=== PATIENT | female | born 2000 | race Hispanic/Latino ===

== ENCOUNTER 2021-08-19 18:38 | Emergency (ER) | payer OTHER, SELFPAY ==
[2021-08-19] MEDS ORDERED: NA CHLORIDE 0.9% 1,000 ML ONE (20:01)
[2021-08-19 20:25] LABS: Basophils % 0.7 % (0-1.3); Hematocrit 41.8 % (36.0-45.0); Lymphocytes % 22.6 % (15.3-44.8); MPV 8.7 fL (7.6-11.3); RBC Red Blood Cell Count 5.41 M/uL (3.86-4.86)
[2021-08-19 20:34] LABS: BUN Blood Urea Nitrogen 12 mg/dL (7-18); Bicarbonate 26 mmol/L (21-32); Glucose Level 90 mg/dL (74-106); Potassium 3.7 mmol/L (3.5-5.1); Sodium Level 141 mmol/L (136-145)
[2021-08-19 20:57] LABS: SARS-COV-2 RT PCR NEGATIVE (NEGATIVE)
[2021-08-19 21:13] LABS: Urine Blood 3+ (Negative); Urine Glucose Negative (Negative); Urine Protein Trace (Negative)
--- NOTE | 2021-08-19 21:35 | ER ---
Nurse's Notes [facility] Name: Roland Blake Age: 20 yrs Sex: Female : 2000 Arrival Date: 08/19/2021 Time: 18:41 Bed 23 Private MD: Diagnosis: Other malaise and fatigue;Dehydration Presentation: 08/19 19:16 Chief complaint: Patient states: Pt states has been feeling dizzy and tired since vg1 Sunday08/17/21; states headache as well. Denies NVD. Coronavirus screen: Vaccine status: Patient reports receiving the 2nd dose of the covid vaccine. Client denies travel out of the [place] in the last 14 days. Ebola Screen: Patient negative for fever greater than or equal to 101.5 degrees Fahrenheit, and additional compatible Ebola Virus Disease symptoms. Initial Sepsis Screen: Does the patient meet any 2 criteria? No. Patient's initial sepsis screen is negative. Does the patient have a suspected source of infection? No. Patient's initial sepsis screen is negative. Risk Assessment: Do you want to hurt yourself or someone else? Patient reports no desire to harm self or others. Onset of symptoms was August 17, 2021. 19:16 Method Of Arrival: Ambulatory 1 19:16 Acuity: REBECCA 3 vg1 Triage Assessment: 19:18 General: Appears in no apparent distress. uncomfortable, Behavior is calm, cooperative. vg1 Pain: Denies pain. 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 - Social history:: Smoking status: Reported history of juuling and/or vaping. - Family history:: not pertinent. - Hospitalizations: : No recent hospitalization is reported. Screenin:25 Abuse screen: Denies threats or abuse. Nutritional screening: No deficits noted. fu Tuberculosis screening: No symptoms or risk factors identified. Fall Risk None identified. Assessment: 19:35 General: Appears in no apparent distress. Behavior is calm, cooperative, appropriate fu for age, Denies fever, fatigue, chills. Pain: Complains of pain in head Pain does not radiate. Pain currently is 4 out of 10 on a pain scale. Quality of pain is described as aching, Pain began 2-3 days ago. Neuro: Level of Consciousness is awake, alert, obeys commands, Oriented to person, place, time, situation, Moves all extremities. Gait is steady, Speech is normal, Facial symmetry appears normal. Cardiovascular: No deficits noted. Respiratory: Respiratory effort is even, unlabored, Respiratory pattern is regular. GI: Patient currently denies abdominal pain, nausea, vomiting. : No signs and/or symptoms were reported regarding the genitourinary system. Derm: Skin is intact. Musculoskeletal: No signs and/or symptoms reported regarding the musculoskeletal system. 20:48 Reassessment: Patient appears in no apparent distress at this time. Patient and/or fu family updated on plan of care and expected duration. Pain level reassessed. Patient is alert, oriented x 3, equal unlabored respirations, skin warm/dry/pink. 21:32 Reassessment: Patient appears in no apparent distress at this time. Patient and/or fu family updated on plan of care and expected duration. Pain level reassessed. Patient is alert, oriented x 3, equal unlabored respirations, skin warm/dry/pink. Dr. Morrison in the room. Vital Signs: 19:16 BP 130 / 88; Pulse 93; Resp 16; Temp 98.1; Pulse Ox 100% ; Weight 49.9 kg; Height 5 ft. vg1 5 in. (165.10 cm); Pain 0/10; 20:15 BP 119 / 71; Pulse 87; Resp 18; Pulse Ox 100% on R/A; Pain 4/10; fu 20:47 BP 115 / 71; Pulse 77; Resp 13; Pulse Ox 100% on R/A; fu 21:35 BP 125 / 75; Pulse 72; Resp 15; Temp 98.7(O); Pulse Ox 100% on R/A; fu 19:16 Body Mass Index 18.30 (49.90 kg, 165.10 cm) vg1 ED Course: 18:41 Patient arrived in ED. ds1 19:03 Jordi Morrison MD is Attending Physician. rn 19:18 Triage completed. vg1 19:18 Arm band placed on. vg1 19:26 Pulse ox on. NIBP on. fu 19:35 Heri Stack, RN is Primary Nurse. fu 19:50 Inserted saline lock: 20 gauge in right antecubital area, using aseptic technique. fu Blood collected. 19:57 CBC with Diff Sent. fu 20:00 EKG done, COVID swab sent to lab. Strep swab sent to lab. swab for Flu sent. fu 20:45 Patient has correct armband on for positive identification. Bed in low position. Call fu light in reach. Side rails up X 1. 20:45 No provider procedures requiring assistance completed. fu 21:34 Urine --Ancillary (enter results) Sent. fu 21:42 IV discontinued, bleeding controlled, Pressure dressing applied. fu Administered Medications: 20:13 Drug: NS 0.9% 1000 ml Route: IV; Rate: 1000 ml; Site: right antecubital; fu 21:12 Follow up: Response: No adverse reaction; IV Status: Completed infusion; IV Intake: fu 1000ml Intake: 21:12 IV: 1000ml; Total: 1000ml. fu Outcome: 21:34 Discharge ordered by . rn 21:42 Discharged to home ambulatory, with significant other. fu 21:42 Condition: good 21:42 Discharge instructions given to patient, Instructed on discharge instructions, follow up and referral plans. Demonstrated understanding of instructions, follow-up care, Prescriptions given X 0 21:43 Patient left the ED. fu Signatures: Sasha Gore ds1 Jordi Morrison MD MD rn Umadhay, Felix RN Helen Vazquez RN RN [facility]
--- NOTE | 2021-08-19 21:35 | EDPHYS ---
Physician Documentation [facility] Name: Roland Blake Age: 20 yrs Sex: Female : 2000 Arrival Date: 08/19/2021 Time: 18:41 Bed 23 Private MD: ED Physician Jordi Morrison HPI: 08/19 20:15 This 20 yrs old Female presents to ER via Ambulatory with complaints of Tired, rn Dizziness. 20:15 This 20 yrs old Female presents to ER via Ambulatory with complaints of Tired, rn headache, dizziness. 20:15 Days ofPatient reports of generalized fatigue and malaise, mild headache. Denies any rn fever/cough/vomiting/diarrhea. States drinking plenty of water. States this began when her menstrual period began but denies any heavy bleeding. No blood in stool. Does report was recently exposed to parents who are Covid positive. Patient is Covid vaccinated.. Onset: The symptoms/episode began/occurred 2 day(s) ago. Severity of symptoms: At their worst the symptoms were mild in the emergency department the symptoms are unchanged. The patient has not experienced similar symptoms in the past. The patient has not recently seen a physician. 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 - Social history:: Smoking status: Reported history of juuling and/or vaping. - Family history:: not pertinent. - Hospitalizations: : No recent hospitalization is reported. ROS: 20:15 Constitutional: Negative for fever, chills, and weight loss, Eyes: Negative for injury, rn pain, redness, and discharge, Neck: Negative for injury, pain, and swelling, Cardiovascular: Negative for chest pain, palpitations, and edema, Respiratory: Negative for shortness of breath, cough, wheezing, and pleuritic chest pain, Abdomen/GI: Negative for abdominal pain, nausea, vomiting, diarrhea, and constipation, Back: Negative for injury and pain, MS/Extremity: Negative for injury and deformity, Skin: Negative for injury, rash, and discoloration, Neuro: Negative for numbness, tingling, and seizure. Exam: 20:15 Constitutional: This is a well developed, well nourished patient who is awake, alert, rn and in no acute distress. Head/Face: Normocephalic, atraumatic. Eyes: Periorbital areas with no swelling, redness, or edema. ENT: Moist mucous membranes Neck: Trachea midline, no thyromegaly or masses palpated, and no cervical lymphadenopathy. Supple, full range of motion without nuchal rigidity, or vertebral point tenderness. No Meningismus. Cardiovascular: Regular rate and rhythm. No pulse deficits. Respiratory: No increased work of breathing, no retractions or nasal flaring. Abdomen/GI: Soft, non-tender Skin: Warm, dry with normal turgor. Normal color with no rashes, no lesions, and no evidence of cellulitis. MS/ Extremity: Pulses equal, no cyanosis. Neurovascular intact. Full, normal range of motion. Equal circumference. Neuro: Awake and alert, GCS 15, oriented to person, place, time, and situation. Cranial nerves II-XII grossly intact. Motor strength 5/5 in all extremities. Sensory grossly intact. Cerebellar exam normal. Normal gait. 20:58 ECG was reviewed by the Attending Physician. rn Vital Signs: 19:16 BP 130 / 88; Pulse 93; Resp 16; Temp 98.1; Pulse Ox 100% ; Weight 49.9 kg; Height 5 ft. vg1 5 in. (165.10 cm); Pain 0/10; 20:15 BP 119 / 71; Pulse 87; Resp 18; Pulse Ox 100% on R/A; Pain 4/10; fu 20:47 BP 115 / 71; Pulse 77; Resp 13; Pulse Ox 100% on R/A; fu 21:35 BP 125 / 75; Pulse 72; Resp 15; Temp 98.7(O); Pulse Ox 100% on R/A; fu 19:16 Body Mass Index 18.30 (49.90 kg, 165.10 cm) vg1 MDM: 19:21 Patient medically screened. rn 21:32 Differential Diagnosis flu, Covid, strep, mono, viral syndrome. Dehydration, anemia, rn malaise and fatigue. Data reviewed: vital signs, nurses notes, lab test result(s), EKG, and as a result, I will discharge patient. Data interpreted: laboratory monitor: rate is 77 beats/min, rhythm is normal sinus rhythm, regular, with no ectopy, Interpretation: normal rate, normal rhythm, Pulse oximetry: on room air is 100 %. Interpretation: normal. Counseling: I had a detailed discussion with the patient and/or guardian regarding: the historical points, exam findings, and any diagnostic results supporting the discharge/admit diagnosis, lab results, the need for outpatient follow up, to return to the emergency department if symptoms worsen or persist or if there are any questions or concerns that arise at home. Response to treatment: the patient's symptoms have mildly improved after treatment, and as a result, I will discharge patient. Special discussion: I discussed with the patient/guardian in detail that at this point there is no indication for admission to the hospital. It is understood, however, that if the symptoms persist or worsen the patient needs to return immediately for re-evaluation. Based on the history and exam findings, there is no indication for further emergent testing or inpatient evaluation. I discussed with the patient/guardian the need to see the primary care provider for further evaluation of the symptoms. ED course: No acute findings found here. Covid negative. Urine shows some ketones but negative for or infection. Glucose within normal range. Stable vitals. Will DC home with return precautions and PCP follow-up. 08/19 19:32 Order name: CBC with Diff rn 08/19 19:32 Order name: Basic Metabolic Panel; Complete Time: 20:57 rn 08/19 19:32 Order name: Urine Microscopic Only rn 08/19 19:32 Order name: Jessamine Screen Profile; Complete Time: 20:57 rn 08/19 19:32 Order name: Strep; Complete Time: 20:57 rn 08/19 19:32 Order name: CBC with Automated Diff; Complete Time: 20:57 EDRI 08/19 20:11 Order name: COVID-19/FLU A+B; Complete Time: 21:28 EDRI 08/19 20:39 Order name: Throat Culture EDRI 08/19 21:13 Order name: Urine Dipstick-Ancillary; Complete Time: 21:28 EDRI 08/19 21:15 Order name: Urine --Ancillary (enter results) tt3 08/19 21:16 Order name: Urine --Ancillary EDMS 08/19 19:32 Order name: IV Start; Complete Time: 19:57 rn 08/19 19:32 Order name: EKG; Complete Time: 19:32 rn 08/19 19:32 Order name: EKG - Nurse/Tech; Complete Time: 20:14 rn 08/19 19:32 Order name: Urine Dipstick-Ancillary (obtain specimen); Complete Time: 21:13 rn 08/19 19:32 Order name: Urine Test (obtain specimen); Complete Time: 21:13 rn EC:58 Rate is 84 beats/min. Rhythm is regular. QRS [place] is Normal. [place] interval is normal. QRS rn interval is normal. QT interval is normal. No Q waves. T waves are Normal. No ST changes noted. Clinical impression: NSR w/ Non-specific ST/T Changes and Incomplete RBBB. Interpreted by me. Reviewed by me. Administered Medications: 20:13 Drug: NS 0.9% 1000 ml Route: IV; Rate: 1000 ml; Site: right antecubital; fu 21:12 Follow up: Response: No adverse reaction; IV Status: Completed infusion; IV Intake: fu 1000ml Disposition Summary: 08/19/21 21:34 Discharge Ordered Location: Home rn Problem: new rn Symptoms: have improved rn Condition: Stable rn Diagnosis - Other malaise and fatigue rn - Dehydration rn Followup: rn - With: Private Physician - When: As needed - Reason: Recheck today's complaints, Re-evaluation by your physician Discharge Instructions: - Discharge Summary Sheet rn - Dehydration, Adult rn - Fatigue rn - Rehydration, Adult rn Forms: - Medication Reconciliation Form rn - Thank You Letter rn - 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 EDRI EDRI
[2021-08-19 21:46] LABS: Urine Bacteria 20-50 /HPF (<20)
[2021-08-19 22:03] VITALS: O2SAT 100
[2021-08-19 22:08] VITALS: BP 125/75; TEMP 98.7
--- NOTE | 2021-08-22 18:32 | EKG ---
Test Date: 2021-08-19 Test Time: 20:09:30 Sleeve Bottom Feller: DAVID MEASUREMENT RESULTS: Intervals: Rate: 84 CO: 156 QRSD: 92 QT: 410 QTc: 484 [place]: P: 65 CO: 156 QRS: 44 T: 24 INTERPRETIVE STATEMENTS: Normal sinus rhythm with sinus arrhythmia Incomplete right bundle branch block Borderline ECG No previous ECG available for comparison Electronically Signed On 08-22-21 18:24:25 VAULT MANAGER by Crispin Witt
--- OUTSIDE RECORDS SUMMARY | 2021-08-27 13:31 | XMS REPORT | Continuity of Care Document ---
:2000 Author Organization [facility] t Address [address] [place] [address] Care Team Providers Name Role Phone System, Not In Primary Care Physician Unavailable Nurse, Pob Immunization Attending Clinician Unavailable Anurag Roy DO Attending Clinician Problems This patient has no known problems. Allergies, Adverse Reactions, Alerts This patient has no known allergies or adverse reactions. Social History Social Habit Start Date Stop Date Quantity Comments Source Sex Assigned At [birth year] [facility] 00:00:00 00:00:00 [facility] Smoking Status Start Date Stop Date Source Unknown if ever smoked [facility] Medications This patient has no known medications. Immunizations Ordered Filled Immunization Date Status Comments Sourc e Immunization Name Name SARS-COV-2 COVID-19 2021-06-09 Completed Unive rsity of PFIZER VACCINE 00:00:00 [facility] SARS-COV-2 COVID-19 2021-05-19 Completed Unive rsity of PFIZER VACCINE 00:00:00 [facility] Procedures Procedure Date / Time Performed Performing Clinician Bertin e SARS-COV-2 COVID-19 2021-06-09 21:02:38 Doctor Unassigned, No [facility] [place] VACCINE,0.3ML,IM Name [facility] Branch (PFIZER) Encounters Start End Encounter Admission Attending Care Care Encounter Source Date/Time Date/Time Type Type Clinicians Facility Department ID 2021-06-09 2021-06-09 Imm/Inj Nurse, Adc Pob Immunization [facility] [id number] [facility] 15:49:23 15:49:40 Visit Lei Roy [id number] itbenja [place] [id number] Chencho Walters [phone] [address] Results This patient has no known results.
== END 2021-08-19 21:43 | disposition home or self-care (01) ==
LOC: ER 18:38
DX: E86.0 Dehydration (principal); R53.83 Other fatigue; Z20.822 Contact with and (suspected) exposure to COVID-19
CPT/HCPCS: 0240U; 36415; 80048; 81003; 81015; 81025; 85025; 86308; 87070; 87081; 87086; 87088; 93005; 96360; 99284; J7030

== ENCOUNTER 2021-12-24 18:06 | Emergency (ER) | payer SELFPAY ==
--- OUTSIDE RECORDS SUMMARY | 2021-12-24 18:08 | XMS REPORT | Continuity of Care Document ---
:[address] [facility] t Address [address] [place] [address] Care Team Providers Name Role Phone System, Not In Primary Care Physician Unavailable Nurse, Pob Immunization Attending Clinician Unavailable Anurag Roy DO Attending Clinician Problems This patient has no known problems. Allergies, Adverse Reactions, Alerts This patient has no known allergies or adverse reactions. Social History Social Habit Start Date Stop Date Quantity Comments Source Sex Assigned At [address] [facility] 00:00:00 00:00:00 [facility] Branch Smoking Status Start Date Stop Date Source Unknown if ever smoked [facility] Medications This patient has no known medications. Immunizations Ordered Filled Immunization Date Status Comments Sourc e Immunization Name Name SARS-COV-2 COVID-19 2021-06-09 Completed Unive rsity of PFIZER VACCINE 00:00:00 [facility] SARS-COV-2 COVID-19 2021-05-19 Completed Unive rsity of PFIZER VACCINE 00:00:00 [facility] Procedures Procedure Date / Time Performed Performing Clinician Sourc e SARS-COV-2 COVID-19 2021-06-09 21:02:38 Doctor Unassigned, No [facility] [place] VACCINE,0.3ML,IM Name [facility] (PFIZER) Encounters Start End Encounter Admission Attending Care Care Encounter Source Date/Time Date/Time Type Type Clinicians Facility Department ID 2021-06-09 2021-06-09 Imm/Inj Nurse, Adc Pob Immunization [facility] [id number] [facility] 15:49:23 15:49:40 Visit Lei Roy [id number] itbenja [place] [id number] Chencho Coyio [phone] [address] Results This patient has no known results.
[2021-12-24 20:06] LABS: Absolute Lymphocytes (CBC) 1.9 K/uL (0.7-4.9); Hematocrit 38.6 % (36.0-45.0); Lymphocytes % 18.9 % (15.3-44.8); MPV 8.4 fL (7.6-11.3); RBC Red Blood Cell Count 5.11 M/uL (3.86-4.86)
--- NOTE | 2021-12-24 20:06 | RAD REPORT ---
EXAM DESCRIPTION: RAD - Chest Single View - 12/24/2021 7:52 pm CLINICAL HISTORY: CHEST PAIN Chest pain. COMPARISON: CHEST PA AND LAT 2 VIEW dated 11/09/2011 FINDINGS: Portable technique limits examination quality. The lungs are grossly clear. The heart is normal in size. No displaced fractures. IMPRESSION: No acute intrathoracic process suspected.
[2021-12-24] MEDS ORDERED: NA CHLORIDE 0.9% 1,000 ML ONE (20:19)
[2021-12-24] MEDS ORDERED: LORazepam 2 MG/ML VIAL ONE (20:19)
[2021-12-24 20:28] LABS: ALT/SGPT 22 U/L (12-78); AST/SGOT 20 U/L (15-37); Albumin 4.7 g/dL (3.4-5.0); Alkaline Phosphatase 67 U/L (45-117); BUN Blood Urea Nitrogen 11 mg/dL (7-18); Bicarbonate 25 mmol/L (21-32); Bilirubin Total 0.3 mg/dL (0.2-1.0); Glucose Level 96 mg/dL (74-106); Potassium 3.9 mmol/L (3.5-5.1); Sodium Level 137 mmol/L (136-145)
[2021-12-24 20:33] LABS: Bilirubin Direct < 0.1 mg/dL (0-0.2); Troponin High Sensitivity < 3.00 pg/mL (<58.9)
[2021-12-24 20:39] LABS: Urine Blood Negative (Negative); Urine Glucose Negative (Negative); Urine Protein Negative (Negative); Urine pH 6.5 (5.0-7.0)
--- NOTE | 2021-12-24 21:34 | EDPHYS ---
Physician Documentation [facility] Name: Roland Blake Age: 21 yrs Sex: Female : 2000 Arrival Date: 12/24/2021 Time: 18:08 Bed 10 Private MD: ED Physician Lenny Dotson HPI: 12/24 19:12 This 21 yrs old Female presents to ER via Ambulatory with complaints of jmm Dizziness, Anxiety. 19:12 The patient presents with feeling faint. Onset: The symptoms/episode began/occurred jmm acutely, today. Modifying factors: The symptoms are alleviated by nothing, the symptoms are aggravated by standing up, changing position. Associated signs and symptoms: Pertinent negatives: chest pain, palpitations. The patient has experienced similar episodes in the past, a few times. The patient has not recently seen a physician. 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 - Social history:: Smoking status: Patient/guardian denies using tobacco, Stopped _ months ago 2. ROS: 19:12 Constitutional: Negative for fever, chills, and weight loss, Eyes: Negative for injury, jmm pain, redness, and discharge, ENT: Negative for injury, pain, and discharge, Neck: Negative for injury, pain, and swelling. 19:12 Cardiovascular: Positive for chest pain, palpitations. 19:12 Neuro: Positive for syncope. 19:12 All other systems are negative. Exam: 19:12 Constitutional: This is a well developed, well nourished patient who is awake, alert, jmm and in no acute distress. Head/Face: atraumatic. Eyes: EOMI, no conjunctival erythema appreciated ENT: Moist Mucus Membranes Neck: Trachea midline, Supple Chest/axilla: Normal chest wall appearance and motion. Cardiovascular: Regular rate and rhythm. No edema appreciated Respiratory: Normal respirations, no respiratory distress appreciated Abdomen/GI: Non distended, soft Back: Normal ROM Skin: General appearance color normal MS/ Extremity: Moves all extremities, no obvious deformities appreciated, no edema noted to the lower extremities Neuro: Awake and alert Psych: Behavior is normal, Mood is normal, Patient is cooperative and pleasant Vital Signs: 18:24 BP 129 / 89; Pulse 87; Resp 18; Temp 98.1; Pulse Ox 100% ; Weight 49.9 kg; Height 5 ft. ww 6 in. (167.64 cm); Pain 3/10; 20:27 BP 116 / 69; Pulse 82; Resp 16; Pulse Ox 99% on R/A; lg3 18:24 Body Mass Index 17.75 (49.90 kg, 167.64 cm) ww MDM: 19:12 Patient medically screened. mat 21:33 Data reviewed: vital signs, nurses notes. Counseling: I had a detailed discussion with veronica the patient and/or guardian regarding: the historical points, exam findings, and any diagnostic results supporting the discharge/admit diagnosis, lab results, radiology results, the need for outpatient follow up, to return to the emergency department if symptoms worsen or persist or if there are any questions or concerns that arise at home. ED course: Patient states feeling better in the ED. Labs, imaging studies unremarkable. Patient family advised to follow-up with cardiology and neurology for further evaluation. Patient otherwise given strict return precautions. Patient and mother understood agrees plan of care peer. 12/24 19:21 Order name: Basic Metabolic Panel; Complete Time: 20:34 [facility] 12/24 19:21 Order name: CBC with Diff; Complete Time: 20:11 [facility] 12/24 19:21 Order name: LFT's; Complete Time: 20:34 [facility] 12/24 19:21 Order name: Troponin HS; Complete Time: 20:34 [facility] 12/24 19:21 Order name: D-Dimer; Complete Time: 20:12 [facility] 12/24 20:39 Order name: Urine Dipstick-Ancillary; Complete Time: 20:40 [facility] 12/24 19:21 Order name: XRAY Chest (1 view); Complete Time: 20:11 [facility] 12/24 19:21 Order name: EKG; Complete Time: 19:22 [facility] 12/24 19:21 Order name: Cardiac monitoring; Complete Time: 20:13 [facility] 12/24 19:21 Order name: EKG - Nurse/Tech; Complete Time: 19:54 [facility] 12/24 20:40 Order name: Urine --Ancillary (enter results) mw2 12/24 20:42 Order name: Urine --Ancillary; Complete Time: 20:43 [facility] 12/24 19:21 Order name: IV Saline Lock; Complete Time: 19:54 [facility] 12/24 19:21 Order name: Labs collected and sent; Complete Time: 19:54 [facility] 12/24 19:21 Order name: O2 Per Protocol; Complete Time: 19:54 [facility] 12/24 19:21 Order name: O2 Sat Monitoring; Complete Time: 19:54 [facility] 12/24 20:06 Order name: Urine Dipstick-Ancillary (obtain specimen); Complete Time: 20:39 [facility] 12/24 20:06 Order name: Urine Test (obtain specimen); Complete Time: 20:39 [facility] Administered Medications: 20:20 Drug: NS 0.9% 1000 ml Route: IV; Rate: 1 bolus; Site: right antecubital; lg3 21:42 Follow up: Response: No adverse reaction; IV Status: Completed infusion; IV Intake: lg3 1000ml 20:21 Drug: Ativan (LORazepam) 0.5 mg Route: IVP; Site: right antecubital; lg3 20:21 Follow up: Response: No adverse reaction lg3 Disposition: 12/25 18:29 Co-signature as Attending Physician, Lenny Dotson MD I agree with the assessment and [facility] plan of care. Disposition Summary: 12/24/21 21:33 Discharge Ordered Location: Home [facility] Condition: Stable jmm Diagnosis - Syncope Near jmm Followup: [facility] - With: Private Physician - When: 2 - 3 days - Reason: Recheck today's complaints, Continuance of care, Re-evaluation by your physician Discharge Instructions: - Discharge Summary Sheet jmm - Panic Attack jmm - Near-Syncope [facility] Forms: - Medication Reconciliation Form [facility] - Thank You Letter [facility] - Antibiotic Education jmm - Prescription Opioid Use [facility] Signatures: Dispatcher [employer] Lenny Parra MD MD cha Mickail, Joel, PA PA jmm Gibson, Lacie, RN RN lg3 Regina Nguyen RN RN ww
--- NOTE | 2021-12-24 21:34 | ER ---
Nurse's Notes [facility] Name: Roland Blake Age: 21 yrs Sex: Female : 2000 Arrival Date: 12/24/2021 Time: 18:08 Bed 10 Private MD: Diagnosis: Syncope Near Presentation: 12/24 18:24 Chief complaint: Patient states: Has been having headaches for a few days and having a ww lot of anxiety with shortness of breath and dizziness. Today at work she felt like she was going to pass out. Coronavirus screen: Vaccine status: Patient reports receiving the 2nd dose of the covid vaccine. Client denies travel out of the [place] in the last 14 days. Ebola Screen: Patient denies travel to an Ebola-affected area in the 21 days before illness onset. Initial Sepsis Screen: Does the patient meet any 2 criteria? No. Patient's initial sepsis screen is negative. Does the patient have a suspected source of infection? No. Patient's initial sepsis screen is negative. Risk Assessment: Do you want to hurt yourself or someone else? Patient reports no desire to harm self or others. Onset of symptoms is unknown. 18:24 Method Of Arrival: Ambulatory ww 18:24 Acuity: REBECCA 4 ww Triage Assessment: 18:26 General: Appears in no apparent distress. Behavior is cooperative, anxious. Pain: ww Complains of pain in face and scalp. EENT: Denies blurred vision. Neuro: Level of Consciousness is awake, alert, obeys commands, Oriented to person, place, time, situation, Moves all extremities. Gait is steady, Speech is normal. Cardiovascular: Capillary refill Patient's skin is warm and dry. Respiratory: Airway is patent Respiratory effort is even, unlabored, Respiratory pattern is regular, symmetrical. GI: No signs and/or symptoms were reported involving the gastrointestinal system. : No signs and/or symptoms were reported regarding the genitourinary system. Derm: Skin is intact, is healthy with good turgor, Skin is pink, warm \T\ dry. 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 - Social history:: Smoking status: Patient/guardian denies using tobacco, Stopped _ months ago 2. Screenin:28 Abuse screen: Denies threats or abuse. Denies injuries from another. Nutritional ww screening: No deficits noted. Tuberculosis screening: No symptoms or risk factors identified. Fall Risk None identified. Assessment: 19:58 General: Appears in no apparent distress. comfortable, Behavior is calm, cooperative. lg3 Pain: Denies pain. Neuro: No deficits noted. Level of Consciousness is awake, alert, obeys commands, Oriented to person, place, time, situation. Cardiovascular: No deficits noted. Reports lightheadedness, dizziness Capillary refill < 3 seconds JVD is absent Patient's skin is warm and dry. Respiratory: No deficits noted. Airway is patent Trachea midline Respiratory effort is even, unlabored, Respiratory pattern is regular, symmetrical. GI: No deficits noted. No signs and/or symptoms were reported involving the gastrointestinal system. Abdomen is flat, non-distended. : No deficits noted. No signs and/or symptoms were reported regarding the genitourinary system. EENT: No deficits noted. No signs and/or symptoms were reported regarding the EENT system. Derm: No deficits noted. No signs and/or symptoms reported regarding the dermatologic system. Skin is intact, is healthy with good turgor, Skin is dry. Musculoskeletal: No deficits noted. No signs and/or symptoms reported regarding the musculoskeletal system. Circulation, motion, and sensation intact. Range of motion: intact in all extremities. Vital Signs: 18:24 BP 129 / 89; Pulse 87; Resp 18; Temp 98.1; Pulse Ox 100% ; Weight 49.9 kg; Height 5 ft. ww 6 in. (167.64 cm); Pain 3/10; 20:27 BP 116 / 69; Pulse 82; Resp 16; Pulse Ox 99% on R/A; lg3 18:24 Body Mass Index 17.75 (49.90 kg, 167.64 cm) ww ED Course: 18:08 Patient arrived in ED. ds1 18:26 Triage completed. ww 18:26 Arm band placed on right wrist. ww 18:40 Aj King PA is PHCP. veronica 18:40 Lenny Dotson MD is Attending Physician. veronica 19:10 Iwona Valadez, RN is Primary Nurse. st1 19:52 XRAY Chest (1 view) In Process Unspecified. EDMS 19:54 Basic Metabolic Panel Sent. lg3 19:54 CBC with Diff Sent. lg3 19:54 LFT's Sent. lg3 19:54 Troponin HS Sent. lg3 19:58 Patient has correct armband on for positive identification. Placed in gown. Call light lg3 in reach. 19:58 Inserted saline lock: 22 gauge in right antecubital area, using aseptic technique. lg3 Blood collected. 20:43 Urine --Ancillary (enter results) Sent. ph 21:41 No provider procedures requiring assistance completed. IV discontinued, intact, lg3 bleeding controlled, No redness/swelling at site. Pressure dressing applied. Administered Medications: 20:20 Drug: NS 0.9% 1000 ml Route: IV; Rate: 1 bolus; Site: right antecubital; lg3 21:42 Follow up: Response: No adverse reaction; IV Status: Completed infusion; IV Intake: lg3 1000ml 20:21 Drug: Ativan (LORazepam) 0.5 mg Route: IVP; Site: right antecubital; lg3 20:21 Follow up: Response: No adverse reaction lg3 Intake: 21:42 IV: 1000ml; Total: 1000ml. lg3 Outcome: 21:33 Discharge ordered by . [facility] 21:41 Discharged to home ambulatory. lg3 21:41 Condition: stable 21:41 Discharge instructions given to patient, Instructed on discharge instructions. 21:42 Patient left the ED. lg3 Signatures: Dispatcher [employer] EDMS Aj King PA PA jmm Sanford, Demi ds1 Karime Delong, RN RN Arina Albarado, RN RN lg3 Regina Nguyen RN RN ww Iwona Valadez, RN RN st1 Corrections: (The following items were deleted from the chart) 21:25 20:27 BP 166 / 69; Pulse 82bpm; Resp 16bpm; Pulse Ox 99% RA; lg3 lg3
[2021-12-24 22:56] VITALS: TEMP 98; O2SAT 100
[2021-12-24 22:57] VITALS: BP 141/84
--- NOTE | 2021-12-25 10:09 | EKG ---
Test Date: 2021-12-24 Test Time: 19:54:33 Studio Producer: MEASUREMENT RESULTS: Intervals: Rate: 76 DC: 154 QRSD: 94 QT: 406 QTc: 456 Valentine: P: 66 DC: 154 QRS: 62 T: 51 INTERPRETIVE STATEMENTS: Normal sinus rhythm Possible Left atrial enlargement Incomplete right bundle branch block Borderline ECG Compared to ECG 08/19/2021 20:09:30 Sinus arrhythmia no longer present Electronically Signed On 12-25-21 10:09:04 CDT by Crispin Witt
== END 2021-12-24 21:42 | disposition home or self-care (01) ==
LOC: ER 18:06
DX: R55 Syncope and collapse (principal); R07.9 Chest pain, unspecified
CPT/HCPCS: 36415; 71045; 80048; 80076; 81003; 81025; 84484; 85025; 85379; 93005; 96361; 96374; 99284; J7030

== ENCOUNTER 2022-01-07 19:19 | Emergency (ER) | payer SELFPAY ==
--- OUTSIDE RECORDS SUMMARY | 2022-01-07 19:22 | XMS REPORT | Continuity of Care Document ---
:2000 Author Organization [facility] t Address [address] [place] [address] Care Team Providers Name Role Phone System, Not In Primary Care Physician Unavailable Nurse, Pob Immunization Attending Clinician Unavailable Anurag Roy DO Attending Clinician Problems This patient has no known problems. Allergies, Adverse Reactions, Alerts This patient has no known allergies or adverse reactions. Social History Social Habit Start Date Stop Date Quantity Comments Source Sex Assigned At [birth year] [facility] 00:00:00 00:00:00 [facility] Branch Smoking Status Start Date Stop Date Source Unknown if ever smoked [facility] Medications This patient has no known medications. Immunizations Ordered Filled Immunization Date Status Comments Sourc e Immunization Name Name SARS-COV-2 COVID-19 2021-06-09 Completed Unive rsity of PFIZER VACCINE 00:00:00 [facility] SARS-COV-2 COVID-19 2021-05-19 Completed Unive rsity of PFIZER VACCINE 00:00:00 [facility] Procedures Procedure Date / Time Performed Performing Clinician Sourc e SARS-COV-2 COVID-19 2021-06-09 21:02:38 Doctor Unassigned, No [facility] [place] VACCINE,0.3ML,IM Name [facility] (PFIZER) Encounters Start End Encounter Admission Attending Care Care Encounter Source Date/Time Date/Time Type Type Clinicians Facility Department ID 2021-06-09 2021-06-09 Imm/Inj Nurse, Adc Pob Immunization [facility] [id number] [facility] 15:49:23 15:49:40 Visit Lei Roy [id number] itbenja [place] [id number] Chencho Coyio [id number] [facility] [address] Results This patient has no known results.
--- NOTE | 2022-01-07 19:47 | EDPHYS ---
Physician Documentation [facility] Name: Roland Blake Age: 21 yrs Sex: Female : 2000 Arrival Date: 01/07/2022 Time: 19:22 Bed 15 Private MD: ED Physician Lenny Dotson HPI: 01/07 19:43 This 21 yrs old Female presents to ER via Ambulatory with complaints of kb Breathing Difficulty, anxiety. 19:43 The patient presents to the emergency department with anxiety. Onset: The kb symptoms/episode began/occurred 1 month(s) ago. Associated signs and symptoms: Pertinent positives; anxiety, shortness of breath. Severity of symptoms: At their worst the symptoms were moderate in the emergency department the symptoms have improved. The patient has experienced similar episodes in the past. The patient has not recently seen a physician. Pt reports she has been having panic attacks every day for the last month. States her anxiety has been bad and then she started hyperventilating which makes her feel like she isn't getting air into her lungs, then gets dizzy. States she had to quit her job because the panic attacks would cause her to break down and cry at times. Pt has virtual appt with psych on Sunday. . 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 - Social history:: Smoking status: Patient denies any tobacco usage or history of. ROS: 19:41 Constitutional: Negative for fever, chills, and weight loss. kb 19:41 Respiratory: Positive for shortness of breath. 19:41 Psych: Positive for anxiety. 19:41 All other systems are negative. Exam: 19:42 Constitutional: This is a well developed, well nourished patient who is awake, alert, kb and in no acute distress. Head/Face: Normocephalic, atraumatic. ENT: Moist Mucous membranes Cardiovascular: Regular rate and rhythm with a normal S1 and S2. No gallops, murmurs, or rubs. No pulse deficits. Respiratory: Respirations even and unlabored. No increased work of breathing. Talking in full sentences Skin: Warm, dry with normal turgor. Normal color. MS/ Extremity: Pulses equal, no cyanosis. Neurovascular intact. Full, normal range of motion. Neuro: Awake and alert, GCS 15, oriented to person, place, time, and situation. Moves all extremities. Normal gait. Psych: Awake, alert, with orientation to person, place and time. Behavior, mood, and affect are within normal limits. Vital Signs: 19:24 BP 127 / 73; Pulse 88; Resp 17; Temp 97.8; Pulse Ox 100% on R/A; Weight 48.99 kg; ab2 Height 5 ft. 6 in. (167.64 cm); Pain 0/10; 19:48 BP 122 / 79; Pulse 91; Resp 16; Pulse Ox 100% on R/A; Pain 0/10; st1 19:24 Body Mass Index 17.43 (48.99 kg, 167.64 cm) ab2 MDM: 19:32 Patient medically screened. [facility] 19:41 Data reviewed: vital signs, nurses notes. Data interpreted: Pulse oximetry: on room air kb is 100 %. Interpretation: normal. Counseling: I had a detailed discussion with the patient and/or guardian regarding: the historical points, exam findings, and any diagnostic results supporting the discharge/admit diagnosis, the need for outpatient follow up, a family practitioner, a psychiatrist, to return to the emergency department if symptoms worsen or persist or if there are any questions or concerns that arise at home. Administered Medications: 19:45 Drug: hydrOXYzine 25 mg Route: PO; st1 19:52 Follow up: Response: No adverse reaction st1 19:59 Follow up: Response: No adverse reaction st1 Disposition Summary: 01/07/22 19:46 Discharge Ordered Location: Home kb Condition: Stable kb Diagnosis - Acute stress reaction kb Followup: kb - With: Emergency Department - When: As needed - Reason: Worsening of condition Followup: kb - With: Private Physician - When: 2 - 3 days - Reason: Recheck today's complaints, Continuance of care, Re-evaluation by your physician Discharge Instructions: - Discharge Summary Sheet kb - Panic Attack, [id number] kb Forms: - Medication Reconciliation Form kb - Thank You Letter kb - Antibiotic Education kb - Prescription Opioid Use kb Addendum: 01/11/2022 07:10 Co-signature as Attending Physician, Lenny Dotson MD I agree with the assessment and c sheppard plan of care. Signatures: Josephine Humphrey, ROBOTIC TECHNICIAN-C ROBOTIC TECHNICIAN-Ckb Lenny Dotson MD MD cha Bleininger, Alexis ab2 Iwona Valadez, RN RN st1
--- NOTE | 2022-01-07 19:47 | ER ---
Nurse's Notes [facility] Name: Roland Blake Age: 21 yrs Sex: Female : 2000 Arrival Date: 01/07/2022 Time: 19:22 Bed 15 Private MD: Diagnosis: Acute stress reaction Presentation: 01/07 19:24 Chief complaint: Parent and/or Guardian states: "We were here last week and she has ab2 panic attacks and it makes her unable to breath. This is an every day occurrence, she had to quit her job. She cant sleep, she's not eating. I don't know what else to do. I need something to help her breathing.". Coronavirus screen: Vaccine status: Patient reports receiving the 2nd dose of the covid vaccine. Client denies travel out of the [place] in the last 14 days. At this time, the client does not indicate any symptoms associated with coronavirus-19. Ebola Screen: Patient negative for fever greater than or equal to 101.5 degrees Fahrenheit, and additional compatible Ebola Virus Disease symptoms Patient denies exposure to infectious person. Patient denies travel to an Ebola-affected area in the 21 days before illness onset. No symptoms or risks identified at this time. Initial Sepsis Screen: Does the patient meet any 2 criteria? No. Patient's initial sepsis screen is negative. Does the patient have a suspected source of infection? No. Patient's initial sepsis screen is negative. Risk Assessment: Do you want to hurt yourself or someone else? Patient reports no desire to harm self or others. Onset of symptoms is unknown. 19:24 Method Of Arrival: Ambulatory ab2 19:24 Acuity: REBECCA 4 ab2 Triage Assessment: 19:29 General: Appears in no apparent distress. Behavior is anxious. Respiratory: Reports ab2 shortness of breath labored breathing Onset: The symptoms/episode began/occurred at an unknown time. the patient reports symptoms have resolved. 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 - Social history:: Smoking status: Patient denies any tobacco usage or history of. Screenin:41 Abuse screen: Denies threats or abuse. Nutritional screening: No deficits noted. st1 Tuberculosis screening: No symptoms or risk factors identified. Fall Risk None identified. No fall in past 12 months (0 pts). No secondary diagnosis (0 pts). No IV (0 pts). Ambulatory Aid- None/Bed Rest/Nurse Assist (0 pts). Gait- Normal/Bed Rest/Wheelchair (0 pts) Mental Status- Oriented to own ability (0 pts). Total Mac Fall Scale indicates No Risk (0-24 pts). Assessment: 19:28 General: Appears in no apparent distress. comfortable, Behavior is calm, cooperative, ab2 appropriate for age. Pain: Denies pain. Cardiovascular: No deficits noted. Respiratory: Airway is patent Respiratory effort is even, unlabored. 19:51 Cardiovascular: Rhythm is regular. Respiratory: Breath sounds are clear. st1 Vital Signs: 19:24 BP 127 / 73; Pulse 88; Resp 17; Temp 97.8; Pulse Ox 100% on R/A; Weight 48.99 kg; ab2 Height 5 ft. 6 in. (167.64 cm); Pain 0/10; 19:48 BP 122 / 79; Pulse 91; Resp 16; Pulse Ox 100% on R/A; Pain 0/10; st1 19:24 Body Mass Index 17.43 (48.99 kg, 167.64 cm) ab2 ED Course: 19:22 Patient arrived in ED. kc5 19:27 Josephine Humphrey [facility]-C [facility] kb 19:27 Ok Hurtado MD is Attending Physician. kb 19:28 Triage completed. ab2 19:28 Arm band placed on right wrist. ab2 19:30 Attending Physician role handed off by Ok Hurtado MD mat 19:30 Lenny Dotson MD is Attending Physician. mat 19:41 Iwona Valadez RN is Primary Nurse. st1 19:47 Patient has correct armband on for positive identification. Bed in low position. Call st1 light in reach. Side rails up X 1. Adult w/ patient. 19:47 No provider procedures requiring assistance completed. st1 19:51 Patient did not have IV access during this emergency room visit. st1 Administered Medications: 19:45 Drug: hydrOXYzine 25 mg Route: PO; st1 19:52 Follow up: Response: No adverse reaction st1 19:59 Follow up: Response: No adverse reaction st1 Outcome: 19:46 Discharge ordered by . angelo 19:57 Discharged to home ambulatory. st1 19:57 Condition: good 19:57 Discharge instructions given to family, Instructed on discharge instructions, follow up and referral plans. Demonstrated understanding of instructions, follow-up care, Prescriptions given X 19:59 Patient left the ED. st1 Signatures: Josephine Humphrey, MAGNESIUM MILL OPERATOR-C MAGNESIUM MILL OPERATOR-Lenny Kaur MD MD cha Clark, Kasey kc5 Rickey Adams ab2 Iwona Valadez, RN RN st1
[2022-01-07 20:58] VITALS: TEMP 97.8; O2SAT 100
[2022-01-07 20:59] VITALS: BP 122/79
== END 2022-01-07 19:59 | disposition home or self-care (01) ==
LOC: ER 19:19
DX: F43.0 Acute stress reaction (principal)
CPT/HCPCS: 99283

== ENCOUNTER 2022-01-10 21:54 | Emergency (ER) | payer SELFPAY ==
--- NOTE | 2022-01-10 23:23 | EDPHYS ---
Physician Documentation [facility] Name: Roland Blake Age: 21 yrs Sex: Female : 2000 Arrival Date: 01/10/2022 Time: 21:59 Bed 10 Private MD: ED Physician Lenny Dotson HPI: 01/10 23:23 This 21 yrs old Female presents to ER via Ambulatory with complaints of jr8 Anxiety. 23:23 Onset: The symptoms/episode began/occurred gradually. Associated signs and symptoms: jr8 The patient has no apparent associated signs or symptoms. Severity of symptoms: At their worst the symptoms were moderate in the emergency department the symptoms have improved mildly. The patient has experienced similar episodes in the past, several times. The patient has been recently seen by a physician:. Patient stated that she is continuing to have ongoing anxiety and panic attacks daily. Has been seen in the emergency room several times at this point. Has gone and had therapy but still waiting to get into psychiatry for further medication help. Patient stated that it is at the point where is becoming debilitating.. 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 - Social history:: Smoking status: Patient denies any tobacco usage or history of. Patient/guardian denies using alcohol, street drugs. ROS: 23:23 Eyes: Negative for injury, pain, redness, and discharge, ENT: Negative for injury, jr8 pain, and discharge, Neck: Negative for injury, pain, and swelling, Cardiovascular: Negative for chest pain, palpitations, and edema, Respiratory: Negative for shortness of breath, cough, wheezing, and pleuritic chest pain, Abdomen/GI: Negative for abdominal pain, nausea, vomiting, diarrhea, and constipation, Back: Negative for injury and pain, MS/Extremity: Negative for injury and deformity, Skin: Negative for injury, rash, and discoloration, Neuro: Negative for headache, weakness, numbness, tingling, and seizure. 23:23 Psych: Positive for anxiety. Exam: 23:23 Constitutional: This is a well developed, well nourished patient who is awake, alert, jr8 and in no acute distress. Cardiovascular: Regular rate and rhythm with a normal S1 and S2. No gallops, murmurs, or rubs. Normal PMI, no JVD. No pulse deficits. Respiratory: Lungs have equal breath sounds bilaterally, clear to auscultation and percussion. No rales, rhonchi or wheezes noted. No increased work of breathing, no retractions or nasal flaring. Abdomen/GI: Soft, non-tender, with normal bowel sounds. No distension or tympany. No guarding or rebound. No evidence of tenderness throughout. Skin: Warm, dry with normal turgor. Normal color with no rashes, no lesions, and no evidence of cellulitis. MS/ Extremity: Pulses equal, no cyanosis. Neurovascular intact. Full, normal range of motion. Neuro: Awake and alert, GCS 15, oriented to person, place, time, and situation. Motor strength 5/5 in all extremities. Sensory grossly intact. 23:23 Psych: Behavior/mood is pleasant, cooperative, anxious, Affect is calm, Oriented to person, place, time, Patient has no thoughts/intents to harm self or others. Judgement / Insight is normal. Memory is normal. Delusions/hallucinations are not present. Vital Signs: 22:33 BP 168 / 89; Pulse 107; Resp 17 S; Temp 98.0(TE); Pulse Ox 100% on R/A; Weight 48.99 kg lg3 (R); Height 5 ft. 6 in. (167.64 cm) (R); Pain 0/10; 22:33 Body Mass Index 17.43 (48.99 kg, 167.64 cm) lg3 MDM: 22:45 Patient medically screened. jr8 23:20 Data reviewed: vital signs, nurses notes, and as a result, I will discharge patient. jr8 Data interpreted: Pulse oximetry: on room air is 100 %. Interpretation: normal. Counseling: I had a detailed discussion with the patient and/or guardian regarding: the historical points, exam findings, and any diagnostic results supporting the discharge/admit diagnosis, the need for outpatient follow up, a psychiatrist, to return to the emergency department if symptoms worsen or persist or if there are any questions or concerns that arise at home. ED course: Detailed discussion with patient and mother about her ongoing chronic anxiety panic attacks. Recommended at this point since she has set up a psychiatry appointment but is about 1 month out that we go ahead and start medication as it is becoming debilitating for her. Family and patient very receptive to this and want to start. They understand that they cannot stop this medication abruptly and need to follow-up regardless. Again understand and will follow up.. Administered Medications: 23:21 Drug: hydrOXYzine 50 mg Route: PO; ld1 23:29 Follow up: Response: No adverse reaction ld1 Disposition Summary: 01/10/22 23:22 Discharge Ordered Location: Home jr8 Problem: new jr8 Symptoms: have improved jr8 Condition: Stable jr8 Diagnosis - Generalized anxiety disorder jr8 - Agoraphobia with panic disorder jr8 Followup: jr8 - With: Private Physician - When: 10 - 14 days - Reason: Recheck today's complaints, Continuance of care, Re-evaluation by your physician Discharge Instructions: - Discharge Summary Sheet jr8 - Panic Attack jr8 - Generalized Anxiety Disorder, Adult jr8 Forms: - Medication Reconciliation Form jr8 - Thank You Letter jr8 - Antibiotic Education jr8 - Prescription Opioid Use jr8 Prescriptions: - Hydroxyzine HCl 50 mg Oral Tablet - take 1 tablet by ORAL route every 8 hours As needed; 90 tablet; Refills: 0, jr8 Product Selection Permitted - Paxil 20 mg Oral Tablet - take 1 tablet by ORAL route once daily .; 30 tablet; Refills: 0, Product jr8 Selection Permitted Addendum: 01/12/2022 06:38 Co-signature as Attending Physician, Lenny Dotson MD I agree with the assessment and c sheppard plan of care. Signatures: Lenny Dotson MD MD cha Roszak, Josh, PA PA jr8 Arina Pittman, RN RN lg3 Shikha Mary RN RN ld1
--- NOTE | 2022-01-10 23:23 | ER ---
Nurse's Notes [facility] Name: Roland Blake Age: 21 yrs Sex: Female : 2000 Arrival Date: 01/10/2022 Time: 21:59 Bed 10 Private MD: Diagnosis: Generalized anxiety disorder;Agoraphobia with panic disorder Presentation: 01/10 22:33 Chief complaint:. Chief complaint: Parent and/or Guardian states: anxiety attack at lg3 home. episodes are becoming more frequent and more intense. mom can no longer handle the episodes. pt reports extreme chest tightness and dizziness at time of episode. now just extreme tiredness. Coronavirus screen: Client denies travel out of the [place] in the last 14 days. At this time, the client does not indicate any symptoms associated with coronavirus-19. Ebola Screen: No symptoms or risks identified at this time. Initial Sepsis Screen: Does the patient meet any 2 criteria? No. Patient's initial sepsis screen is negative. Does the patient have a suspected source of infection? No. Patient's initial sepsis screen is negative. Risk Assessment: Do you want to hurt yourself or someone else? Patient reports no desire to harm self or others. Onset of symptoms was January 10, 2022. 22:33 Method Of Arrival: Ambulatory lg3 22:33 Acuity: REBECCA 4 lg3 Triage Assessment: 22:41 General: Appears in no apparent distress. uncomfortable, Behavior is calm, cooperative, lg3 flat. Pain: Denies pain. EENT: No deficits noted. No signs and/or symptoms were reported regarding the EENT system. Neuro: No deficits noted. Level of Consciousness is awake, alert, obeys commands, Oriented to person, place, time, situation. Cardiovascular: No deficits noted. Reports fatigue, lightheadedness, nausea. Respiratory: No deficits noted. Airway is patent Trachea midline Respiratory effort is even, unlabored, Respiratory pattern is regular, symmetrical. GI: No deficits noted. No signs and/or symptoms were reported involving the gastrointestinal system. : No deficits noted. No signs and/or symptoms were reported regarding the genitourinary system. Derm: No deficits noted. No signs and/or symptoms reported regarding the dermatologic system. Skin is intact, is healthy with good turgor, Skin is dry. Musculoskeletal: No deficits noted. No signs and/or symptoms reported regarding the musculoskeletal system. 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 - Social history:: Smoking status: Patient denies any tobacco usage or history of. Patient/guardian denies using alcohol, street drugs. Screenin:44 Abuse screen: Denies threats or abuse. Denies injuries from another. Nutritional lg3 screening: No deficits noted. Tuberculosis screening: No symptoms or risk factors identified. Fall Risk None identified. Assessment: 23:14 General: Appears in no apparent distress. comfortable, Behavior is cooperative, ld1 anxious. Pain: Denies pain. Neuro: Level of Consciousness is awake, alert, obeys commands, Oriented to person, place, time, situation. Cardiovascular: Capillary refill < 3 seconds Patient's skin is warm and dry. Respiratory: Airway is patent Respiratory effort is even, unlabored. GI: Abdomen is flat, non-distended. : No signs and/or symptoms were reported regarding the genitourinary system. EENT: No signs and/or symptoms were reported regarding the EENT system. Derm: No signs and/or symptoms reported regarding the dermatologic system. Musculoskeletal: No signs and/or symptoms reported regarding the musculoskeletal system. Vital Signs: 22:33 BP 168 / 89; Pulse 107; Resp 17 S; Temp 98.0(TE); Pulse Ox 100% on R/A; Weight 48.99 kg lg3 (R); Height 5 ft. 6 in. (167.64 cm) (R); Pain 0/10; 22:33 Body Mass Index 17.43 (48.99 kg, 167.64 cm) lg3 ED Course: 21:59 Patient arrived in ED. kz 22:41 Triage completed. lg3 22:41 Shikha Mary, GILBERTO is Primary Nurse. ld1 22:41 Arm band placed on left wrist. lg3 22:45 José Miguel Rahman PA is PHCP. jr8 22:45 Lenny Dotson MD is Attending Physician. jr8 23:14 Patient has correct armband on for positive identification. Bed in low position. Call ld1 light in reach. Side rails up X2. Pulse ox on. NIBP on. Door closed. Noise minimized. 23:14 No provider procedures requiring assistance completed. ld1 23:29 Patient did not have IV access during this emergency room visit. ld1 Administered Medications: 23:21 Drug: hydrOXYzine 50 mg Route: PO; ld1 23:29 Follow up: Response: No adverse reaction ld1 Outcome: 23:22 Discharge ordered by . jr8 23:29 Discharged to home ambulatory, with family. ld1 23:29 Condition: stable 23:29 Discharge instructions given to patient, family, Instructed on discharge instructions, follow up and referral plans. medication usage, Demonstrated understanding of instructions, follow-up care, medications, Prescriptions given X 2. 23:29 Patient left the ED. ld1 Signatures: José Miguel Rahman PA PA jr8 Arina Pittman RN RN lg3 Shikha Mary RN RN ld1 Bobbi Mckeon
[2022-01-10] MEDS ORDERED: hydrOXYzine HCL 25 MG TAB ONE (23:25)
[2022-01-11 01:22] VITALS: BP 168/89; TEMP 98; O2SAT 100
== END 2022-01-10 23:29 | disposition home or self-care (01) ==
LOC: ER 21:54
DX: F40.01 Agoraphobia with panic disorder (principal)
CPT/HCPCS: 99283

== ENCOUNTER 2022-01-12 13:19 | Emergency (ER) | payer SELFPAY ==
[2022-01-12] MEDS ORDERED: LORazepam 2 MG/ML VIAL ONE (14:49)
[2022-01-12 15:06] LABS: Urine Blood 3+ (Negative); Urine Glucose Negative (Negative); Urine Protein 1+ (Negative); Urine pH 5.5 (5.0-7.0)
[2022-01-12 15:21] LABS: Absolute Lymphocytes (CBC) 1.1 K/uL (0.7-4.9); Hematocrit 38.1 % (36.0-45.0); Lymphocytes % 13.6 % (15.3-44.8); MPV 8.4 fL (7.6-11.3); RBC Red Blood Cell Count 5.17 M/uL (3.86-4.86)
[2022-01-12 15:38] LABS: Protime INR 1.24
[2022-01-12 15:46] LABS: Barbiturates NEGATIVE (NEGATIVE); Benzodiazepines NEGATIVE (NEGATIVE); Cocaine NEGATIVE (NEGATIVE); METHAMPHETAM NEGATIVE (NEGATIVE); Methadone NEGATIVE (NEGATIVE); Opiates NEGATIVE (NEGATIVE); Phencyclidine NEGATIVE (NEGATIVE); THC Cannibis NEGATIVE (NEGATIVE)
[2022-01-12 15:50] LABS: ALT/SGPT 15 U/L (12-78); AST/SGOT 12 U/L (15-37); Albumin 4.5 g/dL (3.4-5.0); Alkaline Phosphatase 51 U/L (45-117); BUN Blood Urea Nitrogen 12 mg/dL (7-18); Bicarbonate 22 mmol/L (21-32); Bilirubin Direct 0.1 mg/dL (0-0.2); Bilirubin Total 0.5 mg/dL (0.2-1.0); Glucose Level 140 mg/dL (74-106); Potassium 3.3 mmol/L (3.5-5.1); Protein, Total 8.3 g/dL (6.4-8.2); Sodium Level 137 mmol/L (136-145)
--- NOTE | 2022-01-12 18:39 | EDPHYS ---
Physician Documentation [facility] Name: Roland Blake Age: 21 yrs Sex: Female : 2000 Arrival Date: 01/12/2022 Time: 13:21 Bed 17 Private MD: ED Physician Lenny Dotson HPI: 01/12 13:46 This 21 yrs old Female presents to ER via Ambulatory with complaints of jmm Anxiety. 13:46 The patient presents to the emergency department with psychosis, has delusions, suicide jmm ideation, but the patient has no formulated plan. Onset: The symptoms/episode began/occurred gradually, 1 month(s) ago. Past psychiatric history: Psychiatric medications include: Paxil, Primary psychiatric physician: the patient does not have a primary psychiatric physician. This is a 21 year old female with a history of anxiety, depression, that presents to the ED with complaints of increased anxiety along with what she describes as an out of body experience. Symptoms worsened after a previous visit to the ED and was prescribed paxil 20 mg daily. Patient states she has taken two doses. Patient had a similar experience after vaping cbd oil 1 year ago. Patient has had previous episodes of SI and now says she occasionally thinks about suicide. Patient denied a plan. . 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 - Social history:: Smoking status: Patient/guardian denies using tobacco, Patient/guardian denies using alcohol, street drugs. ROS: 13:46 Constitutional: Negative for fever, chills, and weight loss, Cardiovascular: Negative jmm for chest pain, palpitations, and edema, Respiratory: Negative for shortness of breath, cough, wheezing, and pleuritic chest pain. 13:46 Psych: Positive for anxiety, visual hallucinations, suicidal ideation. 13:46 All other systems are negative. Exam: 13:46 Constitutional: This is a well developed, well nourished patient who is awake, alert, jmm and in no acute distress. Head/Face: atraumatic. Eyes: EOMI, no conjunctival erythema appreciated ENT: Moist Mucus Membranes Neck: Trachea midline, Supple Chest/axilla: Normal chest wall appearance and motion. Cardiovascular: Regular rate and rhythm. No edema appreciated Respiratory: Normal respirations, no respiratory distress appreciated Abdomen/GI: Non distended, soft Back: Normal ROM Skin: General appearance color normal MS/ Extremity: Moves all extremities, no obvious deformities appreciated, no edema noted to the lower extremities Neuro: Awake and alert 13:46 Psych: Behavior/mood is pleasant, cooperative, anxious. 20:27 ECG was reviewed by the Attending Physician. [facility] Vital Signs: 13:40 BP 111 / 76; Pulse 118; Resp 17; Temp 99.1; Pulse Ox 100% ; Weight 48.99 kg; Height 5 ap3 ft. 6 in. (167.64 cm); 16:03 BP 112 / 79; Pulse 88; Resp 18; Pulse Ox 98% on R/A; sheppard 20:48 BP 115 / 82; Pulse 82; Resp 19; Pulse Ox 99% on R/A; sm5 13:40 Body Mass Index 17.43 (48.99 kg, 167.64 cm) ap3 MDM: 13:48 Patient medically screened. [facility] 20:14 Differential diagnosis: drug withdrawal. acute psychotic break, depression, psychosis mat secondary to non-compliance. Data reviewed: vital signs, nurses notes, lab test result(s). Data interpreted: monitor technician: not applicable for this patient encounter. rate is 88 beats/min, rhythm is regular, Pulse oximetry: is not applicable for this patient encounter. on room air. Test interpretation: by ED physician or midlevel provider: ECG. Counseling: I had a detailed discussion with the patient and/or guardian regarding: the historical points, exam findings, and any diagnostic results supporting the discharge/admit diagnosis, lab results, radiology results. 01/12 13:46 Order name: Acetaminophen; Complete Time: 15:52 [facility] 01/12 13:46 Order name: Basic Metabolic Panel; Complete Time: 15:52 [facility] 01/12 13:46 Order name: CBC with Diff; Complete Time: 15:28 [facility] 01/12 13:46 Order name: ETOH Level; Complete Time: 15:49 [facility] 01/12 13:46 Order name: Hepatic Function; Complete Time: 15:52 [facility] 01/12 13:46 Order name: PT-INR; Complete Time: 15:39 [facility] 01/12 13:46 Order name: Ptt, Activated; Complete Time: 15:39 [facility] 01/12 13:46 Order name: Salicylate; Complete Time: 16:08 [facility] 01/12 13:46 Order name: Urine Drug Screen; Complete Time: 15:49 [facility] 01/12 13:46 Order name: EKG; Complete Time: 13:47 [facility] 01/12 15:06 Order name: Urine Dipstick-Ancillary; Complete Time: 15:28 [facility] 01/12 15:08 Order name: Urine --Ancillary (enter results); Complete Time: 16:28 [facility] 01/12 13:46 Order name: EKG - Nurse/Tech; Complete Time: 15:10 [facility] 01/12 13:46 Order name: IV Saline Lock; Complete Time: 15:10 [facility] 01/12 13:46 Order name: Labs collected and sent; Complete Time: 15:10 [facility] 01/12 13:46 Order name: Suicide Screening ([place]); Complete Time: 15:50 [facility] 01/12 13:46 Order name: Urine Dipstick-Ancillary (obtain specimen); Complete Time: 15:07 jm EC:27 Rate is 113 beats/min. Rhythm is regular. QRS [place] is Normal. PA interval is normal. mat QRS interval is normal. QT interval is normal. No Q waves. T waves are Normal. No ST changes noted. Clinical impression: Sinus tachycardia. Interpreted by me. Reviewed by me. Administered Medications: 15:09 Drug: Ativan (LORazepam) 1 mg Route: IVP; Site: right antecubital; sheppard 20:41 Follow up: Response: No adverse reaction ap3 20:37 CANCELLED (Duplicate Order): Potassium Effervescent Tablet 25 mEq PO once; dissolve in mat 4 ounces of water or juice Disposition: 18:38 Co-signature as Attending Physician, Jordi Morrison MD I agree with the assessment and rn plan of care. Attestation: The patient's history, exam findings, diagnostics, and a summary of any interventions or procedures was reviewed in detail with Aj GUILLORY. Disposition Summary: 01/12/22 20:25 Discharge Ordered Location: Home mat Problem: new(01/12/22 20:25) mat Symptoms: have improved(01/12/22 20:25) mat Condition: Stable(01/12/22 20:25) mat Diagnosis - Anxiety disorder, unspecified mat Followup: mat - With: Private Physician - When: 2 - 3 days - Reason: Recheck today's complaints, Continuance of care, Re-evaluation by your physician Followup: mat - With: Edwin Pérez MD - When: 2 - 3 days - Reason: Recheck today's complaints, Re-evaluation by your physician Discharge Instructions: - Discharge Summary Sheet mat - Panic Attack mat - Panic Attack, Zlrh-su-Lycl mat - Generalized Anxiety Disorder, Adult mat - Managing Anxiety, Adult mat Forms: - Medication Reconciliation Form mat - Thank You Letter mat - Antibiotic Education mat - Prescription Opioid Use mat Prescriptions: - Hydroxyzine HCl 25 mg Oral Tablet - take 1 tablet by ORAL route every 6 hours As needed; 30 tablet; Refills: 0, mat Product Selection Permitted Signatures: Dispatcher [employer] EDMS Lenny Dotson MD MD cha Mickail, Joel, PA PA Jordi Cruz MD MD rn Page, Corey, PA PA cp Prokisch, Amanda RN RN ap3 Au-ReneerShira RN RN sheppard Corrections: (The following items were deleted from the chart) 20:15 18:38 Dr. cameron rivero 20:15 18:38 Psych Facility rn mat 20:15 18:38 Higher level of care rn mat 20:15 18:38 Stable rn mat 20:15 18:38 new rn mat 20:15 18:38 are unchanged cameron rivero 20:15 18:38 Suicidal ideations rn mat 20:37 20:13 Potassium Effervescent Tablet 25 mEq PO once; dissolve in 4 ounces of water or mat juice ordered. mat
--- NOTE | 2022-01-12 18:39 | ER ---
Nurse's Notes [facility] Name: Roland Blake Age: 21 yrs Sex: Female : 2000 Arrival Date: 01/12/2022 Time: 13:21 Bed 17 Private MD: Diagnosis: Anxiety disorder, unspecified Presentation: 01/12 13:40 Chief complaint: Patient states: she feels like she is anxious and feels like she is ap3 disassociating with herself. Patients mother states that the patient has episodes where the patient feels like she comes out of her body, and has been having feeling like this for approx one month. It is reported the patient has an appointment with a psychiatrist on the , however she can't wait that long. Mother states that the patient has not been sleeping, and is in a constant state of worry. Coronavirus screen: At this time, the client does not indicate any symptoms associated with coronavirus-19. Ebola Screen: No symptoms or risks identified at this time. Initial Sepsis Screen: Does the patient meet any 2 criteria? No. Patient's initial sepsis screen is negative. Does the patient have a suspected source of infection? No. Patient's initial sepsis screen is negative. Risk Assessment: Do you want to hurt yourself or someone else? Patient reports no desire to harm self or others. Onset of symptoms was January 12, 2022. 13:40 Method Of Arrival: Ambulatory ap3 13:40 Acuity: REBECCA 3 ap3 Triage Assessment: 13:46 General: Appears slender, Behavior is anxious, restless. Pain: Denies pain. Neuro: ap3 Level of Consciousness is awake, alert, obeys commands, Oriented to person, place, time, situation, Appropriate for age Speech is normal. Cardiovascular: Patient's skin is warm and dry. Respiratory: Airway is patent Respiratory effort is even, unlabored, Respiratory pattern is regular, symmetrical. 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 - Social history:: Smoking status: Patient/guardian denies using tobacco, Patient/guardian denies using alcohol, street drugs. Screenin:47 Abuse screen: Denies threats or abuse. Nutritional screening: No deficits noted. ap3 Tuberculosis screening: No symptoms or risk factors identified. 14:50 Fall Risk None identified. sheppard Assessment: 14:50 General: Appears in no apparent distress. Behavior is cooperative, anxious. sheppard 19:42 Reassessment: pt denying SI at this time. states she has not had any suicidal ideations sm5 recently. Vital Signs: 13:40 BP 111 / 76; Pulse 118; Resp 17; Temp 99.1; Pulse Ox 100% ; Weight 48.99 kg; Height 5 ap3 ft. 6 in. (167.64 cm); 16:03 BP 112 / 79; Pulse 88; Resp 18; Pulse Ox 98% on R/A; sheppard 20:48 BP 115 / 82; Pulse 82; Resp 19; Pulse Ox 99% on R/A; sm5 13:40 Body Mass Index 17.43 (48.99 kg, 167.64 cm) ap3 ED Course: 13:21 Patient arrived in ED. kz 13:36 Aj King PA is PHCP. [facility] 13:36 Jordi Morrison MD is Attending Physician. [facility] 13:45 Triage completed. ap3 13:47 Arm band placed on right wrist. ap3 14:50 HiStageShira farrell, RN is Primary Nurse. sheppard 14:50 Patient has correct armband on for positive identification. Bed in low position. Adult sheppard w/ patient. 14:50 No provider procedures requiring assistance completed. sheppard 15:05 EKG done, by ED staff, reviewed by Jordi Morrison MD. dh3 15:09 Urine --Ancillary (enter results) Sent. sheppard 16:32 Pt screener requested from [facility]. em1 20:12 Attending Physician role handed off by Jordi Morrison MD mat 20:12 Lenny Dotson MD is Attending Physician. mat 20:25 Edwin Pérez MD is Referral Physician. mat 20:40 IV discontinued, intact, bleeding controlled, No redness/swelling at site. Pressure ap3 dressing applied. Administered Medications: 15:09 Drug: Ativan (LORazepam) 1 mg Route: IVP; Site: right antecubital; 20:41 Follow up: Response: No adverse reaction ap3 20:37 CANCELLED (Duplicate Order): Potassium Effervescent Tablet 25 mEq PO once; dissolve in mat 4 ounces of water or juice Outcome: 18:38 ER care complete, transfer ordered by MD. rn 20:25 Discharge ordered by . mat 20:40 Discharged to home ambulatory, with family. ap3 20:40 Condition: good 20:40 Discharge instructions given to patient, family, Instructed on discharge instructions, follow up and referral plans. medication usage, Demonstrated understanding of instructions, follow-up care, medications, Prescriptions given X 1. 20:48 Patient left the ED. sm5 Signatures: Lenny Dotson MD MD cha Mickail, Joel, PA PA jmm Nieto, Roman, MD MD rn Martinez, Eric em1 Herrera, Deanna Anamika Skaggs RN RN ap3 Mazur, Sarah, RN RN 5 Shira Lynch RN RN ha Zapata, Kelly kz Corrections: (The following items were deleted from the chart) 13:47 13:40 Chief complaint: Patient states: she feels like she is anxious and feels like she ap3 is disassociating with herself. Patients mother states that the patient has episodes where the patient feels like she comes out of her body, and has been having feeling like this for approx one month. It is reported the patient has an appointment with a psychiatrist on the , however she can't wait that long. ap3
[2022-01-12 21:11] VITALS: TEMP 99.1
[2022-01-12 21:14] VITALS: BP 115/82; O2SAT 99
--- NOTE | 2022-01-16 11:24 | EKG ---
Test Date: 2022-01-12 Test Time: 14:53:06 Medical Records Coordinator: LEIGH MEASUREMENT RESULTS: Intervals: Rate: 113 TX: 144 QRSD: 92 QT: 332 QTc: 455 [place]: P: 72 TX: 144 QRS: 72 T: 23 INTERPRETIVE STATEMENTS: Sinus tachycardia Right atrial enlargement Incomplete right bundle branch block ST & T wave abnormality, consider inferior ischemia Abnormal ECG Compared to ECG 12/24/2021 19:54:33 ST (T wave) deviation now present Possible ischemia now present Sinus rhythm no longer present Electronically Signed On 01-16-22 11:14:04 CDT by Crispin Witt
== END 2022-01-12 20:48 | disposition home or self-care (01) ==
LOC: ER 13:19
DX: F41.9 Anxiety disorder, unspecified (principal); F32.A Depression, unspecified
CPT/HCPCS: 36415; 80048; 80076; 80307; 80320; 80329; 81003; 81025; 85025; 85610; 85730; 93005; 96374; 99284

== ENCOUNTER 2022-04-02 00:40 | Emergency (ER) | payer SELFPAY ==
--- OUTSIDE RECORDS SUMMARY | 2022-04-02 00:42 | XMS REPORT | Continuity of Care Document ---
:2000 Author Organization [facility] t Address [address] [place] [address] Care Team Providers Name Role Phone SYSTEM, NOT IN Primary Care Physician Unavailable [place] ACNP Attending Clinician RIDDLE Attending Clinician Unavailable Payers Payer Name Policy Type Policy Number Effective Date Expiration Date [employer] [id number] 2019 HEALTH 00:00:00 Problems Condition Condition Condition Status Onset Resolution Last Treating Co mments Source Name Details Category Date Date Treatment Clinician Date No known No known Disease Unive rs active active ity of problems problems [facility] Allergies, Adverse Reactions, Alerts Allergy Allergy Status Severity Reaction(s) Onset Inactive Treating Comm ents Source Name Type Date Date Clinician NO KNOWN Drug Active Univers ALLERGIE Class ity of S [facility] Social History Social Habit Start Date Stop Date Quantity Comments Source Exposure to Not sure [facility] SARS-CoV-2 (event) Medica l Branch Sex Assigned At [birth year] [facility] 00:00:00 00:00:00 [facility] Smoking Status Start Date Stop Date Source Unknown if ever smoked [facility] Medications Ordered Filled Start Stop Current Ordering Indication Dosage Frequency Signature Comments Components Source Medication Medication Date Date Medication? Clinician (SIG) Name Name LORazepam No .5mg 0.5 mg, Univ ers (ATIVAN) 01-14 Oral, ity of tablet 0.5 00:24: 00:46 ONCE, 1 Kevin as mg 00 :00 dose, On Medical 01/13/22 Branch at 1930, ALEJANDRO No known No Univers medications 01-13 ity of 19:38: [address] Branch Immunizations Ordered Filled Immunization Date Status Comments Sourc e Immunization Name Name SARS-COV-2 COVID-19 2021-06-09 Completed Unive rsity of PFIZER VACCINE 00:00:00 [facility] SARS-COV-2 COVID-19 2021-05-19 Completed Unive rsity of PFIZER VACCINE 00:00:00 [facility] Vital Signs Vital Name Observation Time Observation Value Comments Source Systolic blood 2022-01-14 00:46:45 142 mm[Hg] Univer sity of pressure [facility] Diastolic blood 2022-01-14 00:46:45 89 mm[Hg] Unive rsity of pressure [facility] Heart rate 2022-01-14 00:46:45 95 /min [facility] Respiratory rate 2022-01-14 00:46:45 20 /min [facility] Oxygen saturation in 2022-01-14 00:46:45 98 /min [facility] Arterial blood by [facility] Pulse oximetry [place] Body temperature 2022-01-13 23:47:00 36.67 Radha [facility] Body height 2022-01-13 23:47:00 167.6 cm [facility] Body weight 2022-01-13 23:47:00 48.988 kg [facility] BMI 2022-01-13 23:47:00 17.43 kg/m2 [facility] Procedures Procedure Date / Time Performed Performing Clinician Sourc e NOTICE OF PRIVACY 2022-01-13 23:24:42 Doctor Unassigned, No Univ ersity [facility] PRACTICES Name Medical Branch CONSENT/REFUSAL FOR 2022-01-13 23:23:10 [facility] Un[facility], [facility] AND Name Medical Branch TREATMENT Encounters Start End Encounter Admission Attending Care Care Encounter Source Date/Time Date/Time Type Type Clinicians Facility Department ID 2022-01-13 2022-01-13 Emergency [place], [facility] [id number] [facility] 18:49:00 21:18:00 Abelardo LOPEZ [id number] ity wild HILARIO [id number] [facility] [id number] [place] [id number] Branch 2022-01-13 2022-01-13 Emergency X LUIZ, [facility] ERT [id number] [facility] 18:49:00 21:18:00 ABELARDO yousif [facility] Results This patient has no known results.
--- NOTE | 2022-04-02 00:58 | ER ---
Nurse's Notes [facility] Name: Roland Blake Age: 21 yrs Sex: Female : 2000 Arrival Date: 04/02/2022 Time: 00:44 Bed 9 Private MD: Diagnosis: Acute pharyngitis, unspecified Presentation: 04/02 00:51 Chief complaint: Patient states: 1 week of sore throat, reports pain with swallowing. lp1 Coronavirus screen: At this time, the client does not indicate any symptoms associated with coronavirus-19. Ebola Screen: No symptoms or risks identified at this time. Risk Assessment: Do you want to hurt yourself or someone else? Patient reports no desire to harm self or others. Onset of symptoms was April 02, 2022. 00:51 Method Of Arrival: Ambulatory lp1 00:51 Acuity: REBECCA 4 lp1 00:53 Initial Sepsis Screen: Does the patient meet any 2 criteria? No. Patient's initial lp1 sepsis screen is negative. Does the patient have a suspected source of infection? No. Patient's initial sepsis screen is negative. 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 - Social history:: Smoking status: Patient denies any tobacco usage or history of. Screenin:55 Abuse screen: Denies threats or abuse. Denies injuries from another. Nutritional lp1 screening: No deficits noted. Tuberculosis screening: No symptoms or risk factors identified. Fall Risk None identified. Assessment: 01:00 General: Appears in no apparent distress. comfortable, Behavior is calm, cooperative, jb4 appropriate for age. Pain: Denies pain. Neuro: Level of Consciousness is awake, alert, obeys commands, Oriented to person, place, time, situation. Cardiovascular: Patient's skin is warm and dry. Respiratory: Airway is patent Respiratory effort is even, unlabored, Respiratory pattern is regular, symmetrical. EENT: Throat is clear is reddened has patchy exudate has enlarged tonsils bilaterally with gag reflex present. 01:00 Derm: Skin is intact, Skin is pink, warm \T\ dry. Musculoskeletal: Circulation, motion, jb4 and sensation intact. Range of motion: intact in all extremities. 01:57 Reassessment: Patient appears in no apparent distress at this time. Patient and/or jb4 family updated on plan of care and expected duration. Pain level reassessed. Patient is alert, oriented x 3, equal unlabored respirations, skin warm/dry/pink. Vital Signs: 00:53 BP 120 / 73; Pulse 63; Resp 18; Temp 98.5(O); Pulse Ox 100% on R/A; Weight 50.35 kg lp1 (R); Height 5 ft. 6 in. (167.64 cm); Pain 5/10; 00:53 Body Mass Index 17.92 (50.35 kg, 167.64 cm) lp1 ED Course: 00:44 Patient arrived in ED. ja2 00:44 Aj King PA is PHCP. [facility] 00:44 Jordi Morrison MD is Attending Physician. [facility] 00:51 Arm band placed on right wrist. lp1 00:52 Triage completed. lp1 01:25 Edward Andre RN is Primary Nurse. jb4 01:57 Patient has correct armband on for positive identification. Bed in low position. Call jb4 light in reach. Side rails up X 1. 01:57 No provider procedures requiring assistance completed. Patient did not have IV access jb4 during this emergency room visit. Administered Medications: 01:25 Drug: Decadron (dexamethasone) 10 mg Route: IM; Site: right deltoid; jb4 01:41 Follow up: Response: No adverse reaction jb4 01:25 Drug: Augmentin (Amoxicillin-Clavulanate) 875 mg Route: PO; jb4 01:41 Follow up: Response: No adverse reaction jb4 Medication: :57 VIS not applicable for this client. jb4 Outcome: 00:58 Discharge ordered by . [facility] 01:57 Discharged to home ambulatory. jb4 01:57 Condition: stable 01:57 Discharge instructions given to patient, Instructed on discharge instructions, follow up and referral plans. medication usage, Demonstrated understanding of instructions, follow-up care, medications, Prescriptions given X 1. 02:00 Patient left the ED. jb4 Signatures: Aj King PA PA jmm Pena, Laura, RN RN lp1 Edward Andre RN RN jb4 Nadia Palacio
--- NOTE | 2022-04-02 00:59 | EDPHYS ---
Physician Documentation [facility] Name: Roland Blake Age: 21 yrs Sex: Female : 2000 Arrival Date: 04/02/2022 Time: 00:44 Bed 9 Private MD: ED Physician Jordi Morrison HPI: 04/02 00:54 This 21 yrs old Female presents to ER via Ambulatory with complaints of Sore jmm Throat, Breathing Difficulty. 00:54 The patient presents with sore throat. Onset: The symptoms/episode began/occurred jmm gradually, 1 week(s) ago. Modifying factors: The symptoms are alleviated by nothing, the symptoms are aggravated by nothing. Associated signs and symptoms: Pertinent positives: shortness of breath. This is a 21 year old female with a history of anxiety that presents to the ED with complaints of sore throat, a sensation of fullness in her throat. Symptoms worsened tonight. . 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 - Social history:: Smoking status: Patient denies any tobacco usage or history of. ROS: 00:54 Constitutional: Positive for body aches, chills. jmm 00:54 ENT: Positive for sore throat. 00:54 All other systems are negative. Exam: 00:54 Constitutional: This is a well developed, well nourished patient who is awake, alert, jmm and in no acute distress. Head/Face: atraumatic. Eyes: EOMI, no conjunctival erythema appreciated 00:54 Neck: Trachea midline, Supple Chest/axilla: Normal chest wall appearance and motion. Cardiovascular: Regular rate and rhythm. No edema appreciated Respiratory: Normal respirations, no respiratory distress appreciated Abdomen/GI: Non distended, soft Back: Normal ROM Skin: General appearance color normal MS/ Extremity: Moves all extremities, no obvious deformities appreciated, no edema noted to the lower extremities Neuro: Awake and alert Psych: Behavior is normal, Mood is normal, Patient is cooperative and pleasant 00:54 ENT: Posterior pharynx: Tonsils: enlarged on the right, with erythema, with exudate, erythema, that is moderate. Vital Signs: 00:53 BP 120 / 73; Pulse 63; Resp 18; Temp 98.5(O); Pulse Ox 100% on R/A; Weight 50.35 kg lp1 (R); Height 5 ft. 6 in. (167.64 cm); Pain 5/10; 00:53 Body Mass Index 17.92 (50.35 kg, 167.64 cm) lp1 MDM: 00:52 Patient medically screened. [facility] 00:56 Data reviewed: vital signs, nurses notes. Counseling: I had a detailed discussion with [facility] the patient and/or guardian regarding: the historical points, exam findings, and any diagnostic results supporting the discharge/admit diagnosis, the need for outpatient follow up, to return to the emergency department if symptoms worsen or persist or if there are any questions or concerns that arise at home. 04/02 00:53 Order name: Strep [facility] Administered Medications: 01:25 Drug: Decadron (dexamethasone) 10 mg Route: IM; Site: right deltoid; jb 01:41 Follow up: Response: No adverse reaction [facility] 01:25 Drug: Augmentin (Amoxicillin-Clavulanate) 875 mg Route: PO; jb4 01:41 Follow up: Response: No adverse reaction [facility] Disposition: 06:06 Co-signature as Attending Physician, Jordi Morrison MD. rn Disposition Summary: 04/02/22 00:58 Discharge Ordered Location: Home [facility] Condition: Stable [facility] Diagnosis - Acute pharyngitis, unspecified [facility] Followup: [facility] - With: Private Physician - When: 2 - 3 days - Reason: Recheck today's complaints, Continuance of care, Re-evaluation by your physician Discharge Instructions: - Discharge Summary Sheet [facility] - Pharyngitis [facility] Forms: - Medication Reconciliation Form [facility] - Thank You Letter [facility] - Antibiotic Education [facility] - Prescription Opioid Use [facility] Prescriptions: - Amoxicillin 875 mg Oral Tablet - take 1 tablet by ORAL route every 12 hours for 10 days; 20 tablet; Refills: 0, [facility] Product Selection Permitted Signatures: Dispatcher [employer] Aj Delarosa PA PA Jordi Land MD MD rn Pena, Laura, RN RN lp1 Edward Andre, RN RN jb4
[2022-04-02] MEDS ORDERED: AMOX/K CLAV 875 MG TAB ONE (01:23)
[2022-04-02] MEDS ORDERED: dexAMETHasone 10 MG/ML VIAL ONE (01:23)
[2022-04-02 02:10] VITALS: BP 120/73; TEMP 98.5; O2SAT 100
== END 2022-04-02 02:00 | disposition home or self-care (01) ==
LOC: ER 00:40
DX: J02.9 Acute pharyngitis, unspecified (principal)
CPT/HCPCS: 87081; 96372; 99283; J1100

== ENCOUNTER 2022-05-01 01:16 | Emergency (ER) | payer SELFPAY ==
[2022-05-01] MEDS ORDERED: MECLIZINE HCL 12.5 MG TAB ONE (04:05)
[2022-05-01 04:58] LABS: Urine Blood 3+ (Negative); Urine Glucose Negative (Negative); Urine Protein Negative (Negative); Urine Specific Gravity <=1.005 (1.005-1.030); Urine pH 5.5 (5.0-7.0)
--- NOTE | 2022-05-01 06:28 | ER ---
Nurse's Notes [facility] Name: Roland Blake Age: 21 yrs Sex: Female : 2000 Arrival Date: 05/01/2022 Time: : Bed 9 Private MD: Diagnosis: Vertigo;Bronchitis Presentation: 05/01 01:26 Chief complaint: Patient states: she is feeling SOB, dizzy for a couple of days then bb she had her right ear stop up causing her to have a "ringing" in her ear which lasted a couple of minutes and she has been having headaches since then symptoms have been lasting for a couple of days. Coronavirus screen: difficulty breathing, Client presents with at least one sign or symptom that may indicate coronavirus-19. Ebola Screen: No symptoms or risks identified at this time. Initial Sepsis Screen: Does the patient meet any 2 criteria? No. Patient's initial sepsis screen is negative. Does the patient have a suspected source of infection? No. Patient's initial sepsis screen is negative. Risk Assessment: Do you want to hurt yourself or someone else? Patient reports no desire to harm self or others. Onset of symptoms was April 28, 2022. 01:26 Method Of Arrival: Ambulatory bb 01:26 Acuity: REBECCA 3 bb Triage Assessment: :28 General: Appears in no apparent distress. Behavior is calm, cooperative. Pain: Denies bb pain. EENT: Reports ringing in right ear. Neuro: Level of Consciousness is awake, alert, obeys commands, Oriented to person, place, time, situation. Cardiovascular: Capillary refill < 3 seconds Patient's skin is warm and dry. Respiratory: Reports shortness of breath Onset: The symptoms/episode began/occurred 2 days ago. GI: No signs and/or symptoms were reported involving the gastrointestinal system. Derm: Skin is pink, warm \\T\\ dry. Musculoskeletal: Circulation, motion, and sensation intact. 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 - Social history:: Smoking status: Patient denies any tobacco usage or history of. Screenin:10 Abuse screen: Denies threats or abuse. Nutritional screening: No deficits noted. bb Tuberculosis screening: No symptoms or risk factors identified. Fall Risk None identified. Assessment: 02:10 Reassessment: No changes from previously documented assessment. Patient is alert, bb oriented x 3, equal unlabored respirations, skin warm/dry/pink. see triage assessment. 03:55 Reassessment: Patient is alert, oriented x 3, equal unlabored respirations, skin bb warm/dry/pink. 04:08 Cardiovascular: Rhythm is sinus arrythmia. bb 04:08 Respiratory: Airway is patent Respiratory effort is even, unlabored, Breath sounds are bb clear. 06:41 Reassessment: Patient is alert, oriented x 3, equal unlabored respirations, skin bb warm/dry/pink. pt verbalized understanding of and agrees to plan of care discharge instructions given pt ambulated with steady gait to exit accompanied by family. Vital Signs: 01:26 BP 125 / 77; Pulse 68; Resp 16 S; Temp 98(TE); Pulse Ox 100% on R/A; Weight 50.8 kg bb (R); Height 5 ft. 6 in. (167.64 cm) (R); 04:25 BP 118 / 67; Pulse 75; Resp 16; Pulse Ox 100% on R/A; mh5 06:35 BP 124 / 72; Pulse 81; Resp 16; Temp 97.1(TE); Pulse Ox 100% on R/A; mh5 01:26 Body Mass Index 18.08 (50.80 kg, 167.64 cm) ED Course: 01:18 Patient arrived in ED. ja2 01:28 Triage completed. bb 01:28 Arm band placed on Patient placed in waiting room, Patient notified of wait time. bb Family accompanied patient. 02:10 Sharri Anna RN is Primary Nurse. bb 02:10 Patient has correct armband on for positive identification. Bed in low position. Call bb light in reach. Adult w/ patient. 03:04 Ok Hurtado MD is Attending Physician. 7 03:42 Influenza Screen (a \\T\\ B) Sent. ke1 03:42 COVID-19 SARS RT PCR (Document "Date of Onset" if Symptomatic) Sent. ke1 03:55 CT Head Brain wo Cont In Process Unspecified. EDMS 04:13 EKG done, by ED staff, reviewed by Ok Hurtado MD. 5 05:29 Chest Single View XRAY In Process Unspecified. EDMS 06:30 Denise Huggins MD is Referral Physician. 7 06:41 No provider procedures requiring assistance completed. Patient did not have IV access bb during this emergency room visit. Administered Medications: 04:05 Not Given (Patient Refused): Meclizine 25 mg PO once bb Medication: 02:10 VIS not applicable for this client. bb Outcome: 06:28 Discharge ordered by MD. 7 06:42 Discharged to home ambulatory, with family. bb 06:42 Condition: stable 06:42 Discharge instructions given to patient, Instructed on discharge instructions, follow up and referral plans. medication usage, Demonstrated understanding of Prescriptions given X 3. 06:42 Patient left the ED. bb Signatures: Dispatcher [employer] EDSharri Roe, RN RN Justine [facility] Ok Hurtado MD MD [facility] Nadia Palacio Kouassi, RN RN ke1
--- NOTE | 2022-05-01 06:29 | EDPHYS ---
Physician Documentation [facility] Name: Roland Blake Age: 21 yrs Sex: Female : 2000 Arrival Date: 05/01/2022 Time: :18 Bed 9 Private MD: ED Physician Ok Hurtado HPI: 05/01 03:20 This 21 yrs old Female presents to ER via Ambulatory with complaints of Cough, mh7 Shortness Of Breath, Ear Issues, Dizziness. 03:20 The patient or guardian reports cough, that is intermittent, described as mild, with no mh7 sputum, ear ringing, dizziness. Onset: The symptoms/episode began/occurred 2 day(s) ago. Severity of symptoms: At their worst the symptoms were moderate, 2 day(s) ago, in the emergency department the symptoms have improved, moderately. Modifying factors: The symptoms are alleviated by nothing, the symptoms are aggravated by head movement. Associated signs and symptoms: Pertinent negatives: chest pain, diarrhea, ear ache, fever, nausea, rhinorrhea, sore throat, vomiting. Reports dizziness with spinning sensation, right ear ringing, cough, and congestion. . 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 - Social history:: Smoking status: Patient denies any tobacco usage or history of. ROS: 03:20 Constitutional: Negative for fever, chills, and weight loss, Eyes: Negative for injury, mh7 pain, redness, and discharge, Neck: Negative for injury, pain, and swelling, Cardiovascular: Negative for chest pain, palpitations, and edema, Abdomen/GI: Negative for abdominal pain, nausea, vomiting, diarrhea, and constipation, Back: Negative for injury and pain, : Negative for injury, bleeding, discharge, and swelling, MS/Extremity: Negative for injury and deformity, Skin: Negative for injury, rash, and discoloration, Neuro: Negative for headache, weakness, numbness, tingling, and seizure, Psych: Negative for depression, anxiety, suicide ideation, homicidal ideation, and hallucinations, Allergy/Immunology: Negative for hives, rash, and allergies, Endocrine: Negative for neck swelling, polydipsia, polyuria, polyphagia, and marked weight changes, Hematologic/Lymphatic: Negative for swollen nodes, abnormal bleeding, and unusual bruising. Exam: 03:20 Constitutional: This is a well developed, well nourished patient who is awake, alert, mh7 and in no acute distress. Head/Face: Normocephalic, atraumatic. Eyes: Pupils equal round and reactive to light, extra-ocular motions intact. Lids and lashes normal. Conjunctiva and sclera are non-icteric and not injected. Cornea within normal limits. Periorbital areas with no swelling, redness, or edema. ENT: Nares patent. No nasal discharge, no septal abnormalities noted. Tympanic membranes are normal and external auditory canals are clear. Oropharynx with no redness, swelling, or masses, exudates, or evidence of obstruction, uvula midline. Mucous membranes moist. Neck: Trachea midline, no thyromegaly or masses palpated, and no cervical lymphadenopathy. Supple, full range of motion without nuchal rigidity, or vertebral point tenderness. No Meningismus. Chest/axilla: Normal chest wall appearance and motion. Nontender with no deformity. No lesions are appreciated. Cardiovascular: Regular rate and rhythm with a normal S1 and S2. No gallops, murmurs, or rubs. Normal PMI, no JVD. No pulse deficits. Respiratory: Lungs have equal breath sounds bilaterally, clear to auscultation and percussion. No rales, rhonchi or wheezes noted. No increased work of breathing, no retractions or nasal flaring. Abdomen/GI: Soft, non-tender, with normal bowel sounds. No distension or tympany. No guarding or rebound. No evidence of tenderness throughout. Back: No spinal tenderness. No costovertebral tenderness. Full range of motion. Skin: Warm, dry with normal turgor. Normal color with no rashes, no lesions, and no evidence of cellulitis. MS/ Extremity: Pulses equal, no cyanosis. Neurovascular intact. Full, normal range of motion. Neuro: Awake and alert, GCS 15, oriented to person, place, time, and situation. Cranial nerves II-XII grossly intact. Motor strength 5/5 in all extremities. Sensory grossly intact. Cerebellar exam normal. Normal gait. Psych: Awake, alert, with orientation to person, place and time. Behavior, mood, and affect are within normal limits. Vital Signs: 01:26 BP 125 / 77; Pulse 68; Resp 16 S; Temp 98(TE); Pulse Ox 100% on R/A; Weight 50.8 kg bb (R); Height 5 ft. 6 in. (167.64 cm) (R); 04:25 BP 118 / 67; Pulse 75; Resp 16; Pulse Ox 100% on R/A; mh5 06:35 BP 124 / 72; Pulse 81; Resp 16; Temp 97.1(TE); Pulse Ox 100% on R/A; mh5 01:26 Body Mass Index 18.08 (50.80 kg, 167.64 cm) MDM: 06:26 Differential Diagnosis: Obstructed Airway Bronchitis Influenza Upper Respiratory 7 Infection Viral Syndrome Pneumonia. Data reviewed: vital signs, nurses notes, lab test result(s), Flu: negative urinalysis, UPT: negative radiologic studies, CT scan, plain films. Data interpreted: Pulse oximetry: on room air is 100 %. Interpretation: normal. Counseling: I had a detailed discussion with the patient and/or guardian regarding: the historical points, exam findings, and any diagnostic results supporting the discharge/admit diagnosis, lab results, radiology results, the need for outpatient follow up, to return to the emergency department if symptoms worsen or persist or if there are any questions or concerns that arise at home. Response to treatment: the patient's symptoms have resolved after treatment, the patient's blood pressure is in an acceptable range, mental status has returned to baseline, the patient no longer shows bradycardia, the patient is not short of breath, the patient is not tachycardic, the patient's pain is gone, the patient's temperature has normalized, the patient is now symptom free, patient is well hydrated. 06:28 Patient medically screened. [facility] 05/01 03:30 Order name: COVID-19 SARS RT PCR (Document "Date of Onset" if Symptomatic); Complete [facility] Time: 06:08 05/01 03:30 Order name: Influenza Screen (a \\T\\ B); Complete Time: 05:09 [facility] 05/01 03:30 Order name: CT Head Brain wo Cont [facility] 05/01 04:58 Order name: Urine Dipstick-Ancillary; Complete Time: 05:09 EDMS 05/01 05:06 Order name: Test, Serum; Complete Time: 06:19 bb 05/01 05:11 Order name: Chest Single View XRAY [facility] 05/01 03:30 Order name: Urine Dipstick-Ancillary (obtain specimen); Complete Time: 05:07 [facility] 05/01 03:30 Order name: Urine Test (obtain specimen); Complete Time: 05:07 [facility] 05/01 03:30 Order name: EKG; Complete Time: 03:30 [facility] 05/01 03:30 Order name: EKG - Nurse/Tech; Complete Time: 04:05 [facility] Administered Medications: 04:05 Not Given (Patient Refused): Meclizine 25 mg PO once bb Disposition Summary: 05/01/22 06:28 Discharge Ordered Location: Home [facility] Problem: new [facility] Symptoms: have improved [facility] Condition: Stable [facility] Diagnosis - Vertigo [facility] - Bronchitis [facility] Followup: [facility] - With: Private Physician - When: 1 - 2 days - Reason: Worsening of condition, Recheck today's complaints, Continuance of care, Re-evaluation by your physician Followup: [facility] - With: Denise Huggins MD - When: 1 - 2 days - Reason: Worsening of condition, Recheck today's complaints Discharge Instructions: - Discharge Summary Sheet [facility] - Acute Bronchitis, Adult, [id number] [facility] - Vertigo, [id number] [facility] Forms: - Medication Reconciliation Form [facility] - Thank You Letter [facility] - Antibiotic Education [facility] - Prescription Opioid Use [facility] Prescriptions: - albuterol sulfate 90 mcg/actuation Inhalation HFA aerosol inhaler - inhale 1 puff by INHALATION route every 6 hours As needed; 1 Inhaler; Refills: [facility] 0, Product Selection Permitted - Meclizine 25 mg Oral Tablet - take 1 tablet by ORAL route every 8 hours As needed; 30 tablet; Refills: 0, [facility] Product Selection Permitted - Tessalon Perles 100 mg Oral Capsule - take 1 capsule by ORAL route every 8 hours As needed; 15 capsule; Refills: 0, [facility] Product Selection Permitted Signatures: Dispatcher [employer] EDPau Roenda, GILBERTO RN bb Ok Hurtado MD MD mh7
[2022-05-01 07:39] VITALS: O2SAT 100
[2022-05-01 07:41] VITALS: BP 124/72; TEMP 97.1
--- NOTE | 2022-05-01 12:39 | EKG ---
Test Date: 2022-05-01 Test Time: 04:02:28 Geomagnetist: CRIS MEASUREMENT RESULTS: Intervals: Rate: 81 MA: 156 QRSD: 96 QT: 396 QTc: 460 [place]: P: 48 MA: 156 QRS: 40 T: -21 INTERPRETIVE STATEMENTS: Normal sinus rhythm with sinus arrhythmia Possible Left atrial enlargement Incomplete right bundle branch block T wave abnormality, consider inferior ischemia Prolonged QT Abnormal ECG Compared to ECG 01/12/2022 14:53:06 T-wave abnormality now present Prolonged QT interval now present Sinus tachycardia no longer present ST (T wave) deviation no longer present Possible ischemia still present Electronically Signed On 05-01-22 12:38:41 CDT by Lokesh Vernon
--- NOTE | 2022-05-02 11:17 | RAD REPORT ---
EXAM DESCRIPTION: RAD - Chest Single View - 05/01/2022 5:27 am CLINICAL HISTORY: The patient is 21 years old and is Female; COUGH TECHNIQUE: Frontal view of the chest. COMPARISON: No relevant prior studies available. FINDINGS: Lungs: Unremarkable. No consolidation. Pleural space: Unremarkable. No pneumothorax. Heart: Unremarkable. Mediastinum: Unremarkable. Bones/joints: Unremarkable. IMPRESSION: No acute findings in the chest. Electronically signed by: Socrates Gaytan MD 05/01/2022 5:56 AM CDT Due to temporary technical issues with the PACS/Fluency reporting system, reports are being signed by the in house radiologists without review as a courtesy to insure prompt reporting. The interpreting radiologist is fully responsible for the content of the report.
--- NOTE | 2022-05-02 11:21 | RAD REPORT ---
EXAM DESCRIPTION: CT - Head Brain Wo Cont - 05/01/2022 6:35 am CLINICAL HISTORY: The patient is 21 years old and is Female; Vertigo, peripheral TECHNIQUE: Axial computed tomography images of the head/brain without intravenous contrast. Sagitt al and coronal reformatted images were created and reviewed. This CT exam was performed using one o r more of the following dose reduction techniques: automated exposure control, adjustment of the mA and/or kV according to patient size, and/or use of iterative reconstruction technique. COMPARISON: No relevant prior studies available. FINDINGS: Brain: Unremarkable. No hemorrhage. No significant white matter disease. No edema. Ventricles: Unremarkable. No ventriculomegaly. Bones/joints: Unremarkable. No acute fracture. Soft tissues: Unremarkable. Sinuses: Unremarkable as visualized. Mastoid air cells: Unremarkable as visualized. No mastoid effusion. IMPRESSION: No acute intracranial abnormality. Electronically signed by: Socrates Gaytan MD 05/01/2022 4:35 AM CDT Due to temporary technical issues with the PACS/Fluency reporting system, reports are being signed by the in house radiologists without review as a courtesy to insure prompt reporting. The interpreting radiologist is fully responsible for the content of the report.
== END 2022-05-01 06:42 | disposition home or self-care (01) ==
LOC: ER 01:16
DX: J40 Bronchitis, not specified as acute or chronic (principal); R42 Dizziness and giddiness; F41.9 Anxiety disorder, unspecified; F32.A Depression, unspecified; Z20.822 Contact with and (suspected) exposure to COVID-19
CPT/HCPCS: 36415; 70450; 71045; 81003; 84703; 87804; 93005; 99284; J8597; U0003

== ENCOUNTER 2022-05-13 16:01 | Emergency (ER) | payer SELFPAY ==
[2022-05-13] MEDS ORDERED: ACETAMINOPHEN 500 MG TAB ONE (16:36)
[2022-05-13 16:48] LABS: SARS-CoV-2 Antigen Rapid Res Negative (Negative)
--- NOTE | 2022-05-13 17:51 | ER ---
Nurse's Notes [facility] Name: Roland Blake Age: 21 yrs Sex: Female : 2000 Arrival Date: 05/13/2022 Time: 16:04 Bed 14 Private MD: Diagnosis: Acute pharyngitis, unspecified Presentation: 05/13 16:20 Chief complaint: Sore throat, cough, congestion, and headache x 2-3 days. Coronavirus hb screen: Client presents with at least one sign or symptom that may indicate coronavirus-19. Standard/surgical mask placed on the client. Provider contacted for isolation considerations. Ebola Screen: No symptoms or risks identified at this time. Initial Sepsis Screen: Does the patient meet any 2 criteria? No. Patient's initial sepsis screen is negative. Does the patient have a suspected source of infection? No. Patient's initial sepsis screen is negative. Risk Assessment: Do you want to hurt yourself or someone else? Patient reports no desire to harm self or others. Onset of symptoms was May 11, 2022. 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 - Social history:: Smoking status: Patient denies any tobacco usage or history of. Screenin:19 Abuse screen: Denies threats or abuse. Nutritional screening: No deficits noted. ll1 Tuberculosis screening: No symptoms or risk factors identified. Fall Risk Total Mac Fall Scale indicates No Risk (0-24 pts). Assessment: 17:50 General: Appears uncomfortable, Behavior is calm, cooperative, appropriate for age. ll1 Pain: Complains of pain in head Pain Quality of pain is described as aching. Respiratory: Reports cough that is Airway is patent Trachea midline Respiratory effort is even, unlabored, Breath sounds are clear bilaterally. EENT: Nares with drainage noted Throat is clear. 18:18 Reassessment: No changes from previously documented assessment. Patient and/or family ll1 updated on plan of care and expected duration. Pain level reassessed. Patient is alert, oriented x 3, equal unlabored respirations, skin warm/dry/pink. 18:30 Reassessment: No changes from previously documented assessment. Patient and/or family ll1 updated on plan of care and expected duration. Pain level reassessed. Patient is alert, oriented x 3, equal unlabored respirations, skin warm/dry/pink. Vital Signs: 16:20 BP 125 / 76; Pulse 123; Resp 18; Temp 100.7(TE); Pulse Ox 100% on R/A; Weight 49.9 kg; hb Height 5 ft. 6 in. (167.64 cm); Pain 5/10; 18:29 BP 125 / 64; Pulse 84; Resp 16; Temp 98.3; Pulse Ox 100% ; ll1 16:20 Body Mass Index 17.75 (49.90 kg, 167.64 cm) hb ED Course: 16:04 Patient arrived in ED. jj6 16:08 Aj King PA is PHCP. [facility] 16:08 Denise Hillman MD is Attending Physician. [facility] 16:21 Triage completed. hb 16:22 Arm band placed on. hb 17:43 Alee Weston, RN is Primary Nurse. ss 18:19 Patient has correct armband on for positive identification. Bed in low position. Call ll1 light in reach. Side rails up X 1. Cardiac monitoring not applicable on this patient. 18:30 No provider procedures requiring assistance completed. Patient did not have IV access ll1 during this emergency room visit. Administered Medications: 16:31 Drug: Tylenol 1000 mg Route: PO; hb 18:03 Follow up: Response: No adverse reaction ss 17:28 CANCELLED (Patient Refused): Ativan (LORazepam) 1 mg PO once [facility] 17:50 Drug: Decadron (dexamethasone) 10 mg Route: IM; Site: right deltoid; ss 18:12 Follow up: Response: No adverse reaction ll1 18:12 Drug: cefTRIAXone 1 grams Route: IM; Site: right gluteus; ll1 18:29 Follow up: Response: No adverse reaction ll1 Medication: 18:19 VIS not applicable for this client. ll1 Outcome: 17:50 Discharge ordered by . [facility] 18:30 Discharged to home ambulatory. ll1 18:30 Condition: stable 18:30 Discharge instructions given to patient, family, Instructed on discharge instructions, follow up and referral plans. medication usage, Demonstrated understanding of instructions, follow-up care, medications, Prescriptions given X 1. 18:30 Patient left the ED. ll1 Signatures: Aj King PA PA jmm Smirch, Shelby, RN RN ss Shira Corrigan RN RN hb Zonia Samuel RN RN ll1 Nancy Crookj6 Corrections: (The following items were deleted from the chart) 16:22 16:20 Acuity: REBECCA 3 hb hb
--- NOTE | 2022-05-13 17:51 | EDPHYS ---
Physician Documentation [facility] Name: Roland Blake Age: 21 yrs Sex: Female : 2000 Arrival Date: 05/13/2022 Time: 16:04 Bed 14 Private MD: [facility]INITY Physician Denise Hillman HPI: 05/13 16:15 This 21 yrs old Female presents to ER via Ambulatory with complaints of Sore jmm Throat, Cough. 16:15 The patient presents with sore throat. Onset: The symptoms/episode began/occurred jmm gradually, today. Modifying factors: The symptoms are alleviated by nothing, the symptoms are aggravated by nothing. Associated signs and symptoms: Pertinent positives: fever, shortness of breath Sore throat. The patient has experienced similar episodes in the past. 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 - Social history:: Smoking status: Patient denies any tobacco usage or history of. ROS: 16:15 Cardiovascular: Negative for chest pain, palpitations, and edema, Respiratory: Negative jmm for shortness of breath, cough, wheezing, and pleuritic chest pain. 16:15 Constitutional: Positive for body aches, chills. Exam: 16:27 Constitutional: This is a well developed, well nourished patient who is awake, alert, jmm and in no acute distress. Head/Face: atraumatic. 16:27 Neck: Trachea midline, Supple Chest/axilla: Normal chest wall appearance and motion. jmm Cardiovascular: Regular rate and rhythm. No edema appreciated Respiratory: Normal respirations, no respiratory distress appreciated Abdomen/GI: Non distended Back: Normal ROM Skin: General appearance color normal MS/ Extremity: Moves all extremities, no obvious deformities appreciated, no edema noted to the lower extremities Neuro: Awake and alert Psych: Behavior is normal, Mood is normal, Patient is cooperative and pleasant 16:27 ENT: Posterior pharynx: Uvula: normal, midline, erythema, that is mild, exudate, is not appreciated. Vital Signs: 16:20 BP 125 / 76; Pulse 123; Resp 18; Temp 100.7(TE); Pulse Ox 100% on R/A; Weight 49.9 kg; hb Height 5 ft. 6 in. (167.64 cm); Pain 5/10; 18:29 BP 125 / 64; Pulse 84; Resp 16; Temp 98.3; Pulse Ox 100% ; ll1 16:20 Body Mass Index 17.75 (49.90 kg, 167.64 cm) hb MDM: 16:41 Patient medically screened. [facility] 17:47 Data reviewed: vital signs, nurses notes. Counseling: I had a detailed discussion with nan the patient and/or guardian regarding: the historical points, exam findings, and any diagnostic results supporting the discharge/admit diagnosis, lab results, the need for outpatient follow up, to return to the emergency department if symptoms worsen or persist or if there are any questions or concerns that arise at home. ED course: Patient is alert and non toxic in appearance in the ED. No signs of resp distress. PATIENT ADVISED TO FOLLOW UP WITH PCP AND OTHERWISE GIVEN STRICT RETURN PRECAUTIONS. Patient understood and agrees with the plan of care. . 05/13 16:12 Order name: SARS RAPID; Complete Time: 16:49 [facility] 05/13 16:12 Order name: Influenza Screen (a \T\ B); Complete Time: 16:56 [facility] 05/13 16:49 Order name: Strep; Complete Time: 17:38 [facility] 05/13 17:36 Order name: Throat Culture EDMS Administered Medications: 16:31 Drug: Tylenol 1000 mg Route: PO; hb 18:03 Follow up: Response: No adverse reaction ss 17:28 CANCELLED (Patient Refused): Ativan (LORazepam) 1 mg PO once [facility] 17:50 Drug: Decadron (dexamethasone) 10 mg Route: IM; Site: right deltoid; ss 18:12 Follow up: Response: No adverse reaction ll1 18:12 Drug: cefTRIAXone 1 grams Route: IM; Site: right gluteus; ll1 18:29 Follow up: Response: No adverse reaction ll1 Disposition: 18:50 Co-signature as Attending Physician, Denise Hillman MD STAFF ATTESTATION STATEMENT I sd2 was immediately available on-site in the Emergency Department for consultation in the care of the patient. Denise Hillman MD. Disposition Summary: 05/13/22 17:50 Discharge Ordered Location: Home [facility] Condition: Stable jmm Diagnosis - Acute pharyngitis, unspecified jmm Followup: jmm - With: Private Physician - When: 2 - 3 days - Reason: Recheck today's complaints, Continuance of care, Re-evaluation by your physician Discharge Instructions: - Discharge Summary Sheet [facility] - Pharyngitis [facility] Forms: - Medication Reconciliation Form [facility] - Thank You Letter [facility] - Antibiotic Education [facility] - Prescription Opioid Use jm Prescriptions: - cefdinir 300 mg Oral capsule - take 1 capsule by ORAL route every 12 hours for 10 days; 20 capsule; Refills: [facility] 0, Product Selection Permitted Signatures: Dispatcher [employer] Aj Delarosa PA PA jmm Smirch, Shelby, RN RN Shira Corrigan RN RN Zonia Samuel RN RN ll1 Denise Hillman MD MD sd2 Corrections: (The following items were deleted from the chart) 17:28 17:22 Ativan (LORazepam) 1 mg PO once ordered. jm roberth
[2022-05-13] MEDS ORDERED: dexAMETHasone 10 MG/ML VIAL ONE (17:53)
[2022-05-13] MEDS ORDERED: CEFTRIAXONE 1000 MG/VIAL ONE (18:13)
[2022-05-13] MEDS ORDERED: LIDOCAINE 1% MPF 2 ML AMPULE ONE (18:13)
[2022-05-13 19:27] VITALS: O2SAT 100
[2022-05-13 19:42] VITALS: BP 125/64; TEMP 98.3
== END 2022-05-13 18:30 | disposition home or self-care (01) ==
LOC: ER 16:01
DX: J02.9 Acute pharyngitis, unspecified (principal); R50.9 Fever, unspecified; R05.9 Cough, unspecified; F32.A Depression, unspecified; Z20.822 Contact with and (suspected) exposure to COVID-19
CPT/HCPCS: 36415; 87070; 87081; 87804; 87811; 96372; 99283; J1100

== ENCOUNTER 2022-07-28 14:33 | Emergency (ER) | payer SELFPAY ==
--- OUTSIDE RECORDS SUMMARY | 2022-07-28 14:36 | XMS REPORT | Continuity of Care Document ---
:2000 Author Organization [facility] t Address [address] [place] [address] Care Team Providers Name Role Phone SYSTEM, PCP NOT IN Primary Care Physician Unavailable Abelardo Encarnacion Attending Clinician ABELARDO DEE Attending Clinician Unavailable Payers Payer Name Policy Type Policy Number Effective Date Expiration Date S fabiola ALMONTE [id number] 2019 HEALTH 00:00:00 Problems Condition Condition Condition Status Onset Resolution Last Treating Co mments Source Name Details Category Date Date Treatment Clinician Date No known No known Disease Unive rs active active ity of problems problems [facility] Allergies, Adverse Reactions, Alerts Allergy Allergy Status Severity Reaction(s) Onset Inactive Treating Comm ents Source Name Type Date Date Clinician NO KNOWN Drug Active Univers ALLERGIE Class ity of S [facility] Social History Social Habit Start Date Stop Date Quantity Comments Source Exposure to Not sure [facility] SARS-CoV-2 (event) Medica l Branch Sex Assigned At [birth year] [facility] 00:00:00 00:00:00 Medical Branch Smoking Status Start Date Stop Date Source Unknown if ever smoked [facility] Medications Ordered Filled Start Stop Current Ordering Indication Dosage Frequency Signature Comments Components Source Medication Medication Date Date Medication? Clinician (SIG) Name Name LORazepam 2021-0 2022- No .5mg 0.5 mg, Univ ers (ATIVAN) 01-14 04-02 Oral, ity of tablet 0.5 00:24: 00:46 ONCE, 1 Kevin as mg 00 :00 dose, On Medical 01/13/22 Branch at 1930, ALEJANDRO No known No [facility] 01-13 ity of 19:38: [address] Immunizations Ordered Filled Immunization Date Status Comments Sour e Immunization Name Name SARS-COV-2 COVID-19 2021-06-09 Completed Unive rsity of PFIZER VACCINE 00:00:00 [facility] SARS-COV-2 COVID-19 2021-05-19 Completed Unive rsity of PFIZER VACCINE 00:00:00 [facility] Vital Signs Vital Name Observation Time Observation Value Comments Source Systolic blood 2022-01-14 00:46:45 142 mm[Hg] Univer sity of pressure [facility] Diastolic blood 2022-01-14 00:46:45 89 mm[Hg] Unive rsity of pressure [facility] Heart rate 2022-01-14 00:46:45 95 /min [facility] Respiratory rate 2022-01-14 00:46:45 20 /min [facility] Oxygen saturation in 2022-01-14 00:46:45 98 /min [facility] Arterial blood by [facility] Pulse oximetry [place] Body temperature 2022-01-13 23:47:00 36.67 Radha [facility] Body height 2022-01-13 23:47:00 167.6 cm [facility] Body weight 2022-01-13 23:47:00 48.988 kg [facility] BMI 2022-01-13 23:47:00 17.43 kg/m2 [facility] Procedures Procedure Date / Time Performed Performing Clinician Sour e NOTICE OF PRIVACY 2022-01-13 23:24:42 [facility], [facility] CONSENT/REFUSAL FOR 2022-01-13 23:23:10 Doctor Unassigned, [facility] DIAGNOSIS AND Name Medical Branch TREATMENT Encounters Start End Encounter Admission Attending Care Care Encounter Source Date/Time Date/Time Type Type Clinicians Facility Department ID 2022-01-13 2022-01-13 Emergency [place], [facility] [id number] [facility] 18:49:00 21:18:00 Abelardo LOPEZ [id number] Cresencio [id number] [facility] [id number] [place] [id number] Branch 2022-01-13 2022-01-13 Emergency X LUIZ [facility] ERT [id number] [facility] 18:49:00 21:18:00 ABELARDO yousif of [facility] Results This patient has no known results.
[2022-07-28 15:25] LABS: Urine Blood Negative (Negative); Urine Glucose Negative (Negative); Urine Protein Negative (Negative); Urine Specific Gravity 1.015 (1.005-1.030)
[2022-07-28 15:29] LABS: Hematocrit 37.6 % (36.0-45.0); Lymphocytes % 24.6 % (15.3-44.8); MCV 69.8 fL (80-100); MPV 7.6 fL (7.6-11.3); RBC Red Blood Cell Count 5.39 M/uL (3.86-4.86)
[2022-07-28 15:33] LABS: Protime INR 1.12
[2022-07-28 15:39] LABS: Barbiturates NEGATIVE (NEGATIVE); Benzodiazepines NEGATIVE (NEGATIVE); Cocaine NEGATIVE (NEGATIVE); METHAMPHETAM NEGATIVE (NEGATIVE); Methadone NEGATIVE (NEGATIVE); Opiates NEGATIVE (NEGATIVE); Phencyclidine NEGATIVE (NEGATIVE); THC Cannibis NEGATIVE (NEGATIVE)
[2022-07-28 15:39] LABS: Urine Specific Gravity/Preg 1.015 (1.005-1.030)
[2022-07-28 16:09] LABS: ALT/SGPT 21 U/L (12-78); AST/SGOT 16 U/L (15-37); Albumin 4.4 g/dL (3.4-5.0); Alkaline Phosphatase 61 U/L (45-117); BUN Blood Urea Nitrogen 13 mg/dL (7-18); Bicarbonate 28 mmol/L (21-32); Bilirubin Total 0.2 mg/dL (0.2-1.0); Glomerular Filtration Rate 98 ml/min (=/>90); Glucose Level 100 mg/dL (74-106); Potassium 3.9 mmol/L (3.5-5.1); Protein, Total 8.7 g/dL (6.4-8.2); Sodium Level 136 mmol/L (136-145)
[2022-07-28 16:10] LABS: Bilirubin Direct < 0.1 mg/dL (0-0.2)
[2022-07-28 16:58] LABS: SARS-CoV-2 Antigen Rapid Res Negative (Negative)
--- NOTE | 2022-07-28 19:15 | EDPHYS ---
Physician Documentation [facility] Name: Roland Blake Age: 21 yrs Sex: Female : 2000 Arrival Date: 07/28/2022 Time: 14:34 Bed 17 Private MD: ED Physician Lance Doyle HPI: 07/28 15:12 This 21 yrs old Female presents to ER via Ambulatory with complaints of sp3 Suicidal Ideation. 15:12 21-year-old female with history of depression, prior self-harm presents to the [facility] ED with chief complaint suicidal ideation and multiple superficial cuts of her right upper extremity forearm. Patient is here with her mother who brought her in. Mother states that she had a "mouthful of Tylenol" 2 days ago but she was able to take them out of her mouth prior to her swallowing. Patient denies taking any Tylenol at all. Patient denies homicidal ideation, psychosis, or any other review of systems at this time. From a somatic standpoint, there is no pain including headache, chest pain, shortness of breath, abdominal pain, nausea, vomiting, diarrhea, extremity pain, bruising, bleeding, any other trauma or self-harm. LMP was 1 week ago.. 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 Last tetanus immunization: up to date. - Social history:: Smoking status: Patient denies any tobacco usage or history of. ROS: 15:13 Constitutional: Negative for fever, chills, and weight loss, Eyes: Negative for injury, sp3 pain, redness, and discharge, ENT: Negative for injury, pain, and discharge, Neck: Negative for injury, pain, and swelling, Cardiovascular: Negative for chest pain, palpitations, and edema, Respiratory: Negative for shortness of breath, cough, wheezing, and pleuritic chest pain, Abdomen/GI: Negative for abdominal pain, nausea, vomiting, diarrhea, and constipation, Back: Negative for injury and pain, Neuro: Negative for headache, weakness, numbness, tingling, and seizure, Allergy/Immunology: Negative for hives, rash, and allergies, Endocrine: Negative for neck swelling, polydipsia, polyuria, polyphagia, and marked weight changes. 15:13 All other systems are negative. Exam: 15:14 Constitutional: This is a well developed, well nourished patient who is awake, alert, sp3 and in no acute distress. Head/Face: Normocephalic, atraumatic. Eyes: Pupils equal round and reactive to light, extra-ocular motions intact. Lids and lashes normal. Conjunctiva and sclera are non-icteric and not injected. Cornea within normal limits. Periorbital areas with no swelling, redness, or edema. ENT: Nares patent. No nasal discharge, no septal abnormalities noted. External auditory canals are clear. Oropharynx with no redness, swelling, or masses, exudates, or evidence of obstruction, uvula midline. Mucous membranes moist. Neck: Trachea midline, no thyromegaly or masses palpated, and no cervical lymphadenopathy. Supple, full range of motion without nuchal rigidity, or vertebral point tenderness. No Meningismus. Chest/axilla: Normal chest wall appearance and motion. Nontender with no deformity. No lesions are appreciated. Cardiovascular: Regular rate and rhythm with a normal S1 and S2. No gallops, murmurs, or rubs. Normal PMI, no JVD. No pulse deficits. Respiratory: Lungs have equal breath sounds bilaterally, clear to auscultation and percussion. No rales, rhonchi or wheezes noted. No increased work of breathing, no retractions or nasal flaring. Abdomen/GI: Soft, non-tender, with normal bowel sounds. No distension or tympany. No guarding or rebound. No evidence of tenderness throughout. Back: No spinal tenderness. No costovertebral tenderness. Full range of motion. Neuro: Awake and alert, GCS 15, oriented to person, place, time, and situation. Cranial nerves II-XII grossly intact. Motor strength 5/5 in all extremities. Sensory grossly intact. Cerebellar exam normal. Normal gait. 15:14 Musculoskeletal/extremity: Multiple superficial cuts on the right forearm without significant bleeding. There are are all in multiple stages of healing indicating multiple days of self-harm.. 15:14 Psych: Patient continues to have suicidal ideation including plan of overdosing on medication. She denies homicidal ideation and she denies psychosis. Patient does not appear to be responding to internal stimuli.. 16:38 ECG was reviewed by the Attending Physician. EKG demonstrates normal sinus rhythm at 76 sp3 bpm with normal intervals, normal QRS, normal axis, normal ST/T-segment without evidence of acute ischemia or electrolyte abnormality. Vital Signs: 15:02 BP 141 / 93; Pulse 74; Resp 20; Temp 97.9; Pulse Ox 100% ; Weight 48.99 kg; Height 5 kb3 ft. 6 in. (167.64 cm); Pain 0/10; 15:30 BP 136 / 82; Pulse 72; Pulse Ox 100% ; Pain 0/10; ko1 19:33 BP 110 / 61; Pulse 93; Resp 17 S; Temp 98.6(O); Pulse Ox 97% on R/A; Pain 0/10; aa9 07/29 01:20 BP 103 / 61; Pulse 71; Resp 18 S; Temp 98.2(O); Pulse Ox 98% on R/A; Pain 0/10; aa9 03:30 BP 102 / 62; Pulse 80; Resp 15 S; Pulse Ox 97% on R/A; aa9 05:30 BP 101 / 60; Pulse 78; Resp 15 S; Temp 98.2(O); Pulse Ox 98% on R/A; Pain 0/10; aa9 07/28 15:02 Body Mass Index 17.43 (48.99 kg, 167.64 cm) kb3 MDM: 07/28 14:39 Patient medically screened. jl9 15:18 Data reviewed: vital signs, nurses notes. ED course: 21-year-old female with suicidal sp3 ideation and self-harm/cutting. We will obtain psychiatric consultation with [facility] and medically cleared with standard work-up.. 19:15 ED course: [facility] has evaluated patient and recommends inpatient admission. Patient ms3 will likely get placement on Sunday.. 07/28 14:47 Order name: Acetaminophen sp3 07/28 14:47 Order name: Basic Metabolic Panel sp3 07/28 14:47 Order name: CBC with Diff sp3 07/28 14:47 Order name: ETOH Level 3 07/28 14:47 Order name: Hepatic Function 3 07/28 14:47 Order name: PT-INR 3 07/28 14:47 Order name: Ptt, Activated 3 07/28 14:47 Order name: Salicylate [facility] 07/28 14:47 Order name: Urine Drug Screen [facility] 07/28 15:25 Order name: Urine Dipstick-Ancillary; Complete Time: 17:19 EDMS 07/28 15:27 Order name: Urine --Ancillary (enter results) 07/28 15:33 Order name: Protime (+INR); Complete Time: 17:19 EDMS 07/28 15:33 Order name: PTT, Activated Partial Thromb; Complete Time: 17:19 EDMS 07/28 15:38 Order name: CBC with Automated Diff; Complete Time: 17:19 EDMS 07/28 14:47 Order name: EKG; Complete Time: 14:48 [facility] 07/28 14:47 Order name: EKG - Nurse/Tech; Complete Time: 15:26 [facility] 07/28 14:47 Order name: IV Saline Lock; Complete Time: 15:17 3 07/28 14:47 Order name: Labs collected and sent; Complete Time: 15:17 [facility] 07/28 14:47 Order name: Suicide Precautions; Complete Time: 16:20 [facility] 07/28 15:39 Order name: Urine Drug Screen; Complete Time: 17:19 EDMS 07/28 15:39 Order name: Urine --Ancillary; Complete Time: 17:19 EDSC 07/28 15:54 Order name: Diet Finger Food; Complete Time: 15:55 07/28 15:54 Order name: Diet Diet As Per Parent; Complete Time: 15:55 zm 07/28 16:10 Order name: Basic Metabolic Panel; Complete Time: 17:19 EDMS 07/28 16:10 Order name: Liver (Hepatic) Function; Complete Time: 17:19 EDMS 07/28 16:10 Order name: Acetaminophen Level; Complete Time: 17:19 EDMS 07/28 16:17 Order name: SARS RAPID eb 07/28 16:24 Order name: Salicylates Level; Complete Time: 17:19 EDMS 07/28 16:24 Order name: Alcohol Serum/Plasma; Complete Time: 17:19 EDMS 07/28 16:58 Order name: SARS-COV-2 Antigen Rapid; Complete Time: 17:19 EDMS 07/28 14:47 Order name: Suicide Screening (Closplint); Complete Time: 16:20 sp3 07/28 14:47 Order name: Urine Dipstick-Ancillary (obtain specimen); Complete Time: 15:17 sp3 07/28 14:47 Order name: Urine Test (obtain specimen); Complete Time: 15:17 sp3 Administered Medications: No medications were administered Disposition Summary: 07/28/22 19:14 Transfer Ordered Transfer Location: Psych Facility ms3 Reason: Higher level of care ms3 Condition: Stable ms3 Problem: new ms3 Symptoms: are unchanged ms3 Accepting Physician: Psych(07/29/22 06:42) aa9 Diagnosis - Suicidal ideations ms3 Forms: - Medication Reconciliation Form ms3 - SBAR form ms3 Signatures: Dispatcher [employer] EDMS Lance Doyle, DO ms3 Jessica Murillo MD MD sp3 Deejay Zelaya9 Amy Mcgowan RN RN aa9 Bobbi Melgoza RN RN kb3 Corrections: (The following items were deleted from the chart) 07/29 06:42 07/28 19:14 Psych ms3 aa9
--- NOTE | 2022-07-28 19:15 | ER ---
Nurse's Notes [facility] Name: Roland Blake Age: 21 yrs Sex: Female : 2000 Arrival Date: 07/28/2022 Time: 14:34 Bed 17 Private MD: Diagnosis: Suicidal ideations Presentation: 07/28 15:02 Chief complaint: Parent and/or Guardian states: Mom reports that pt has been kb3 increasingly depressed and anxious, despite increased dose of Paxil and treatment by psychiatry. Mom reports pt has started cutting her arms again and attempted to swallow a handful of Tylenol 2 days ago. Pt's affect is flat, voice is quiet, pt is tearful but calm and cooperative. Multiple linear scratches noted to bilateral forearms. rental counter clerk reports that she found pt in restroom cutting her arms with a needle after checking into ED. Coronavirus screen: Vaccine status: Patient reports being unvaccinated. Client denies travel out of the [place] in the last 14 days. Ebola Screen: Patient negative for fever greater than or equal to 101.5 degrees Fahrenheit, and additional compatible Ebola Virus Disease symptoms Patient denies exposure to infectious person. Patient denies travel to an Ebola-affected area in the 21 days before illness onset. No symptoms or risks identified at this time. Initial Sepsis Screen: Does the patient meet any 2 criteria? No. Patient's initial sepsis screen is negative. Does the patient have a suspected source of infection? No. Patient's initial sepsis screen is negative. Risk Assessment: Do you want to hurt yourself or someone else? Patient reports desire/thoughts of hurting themselves or someone else. Provider notified. Onset of symptoms was July 28, 2022 at 10:00. 15:02 Method Of Arrival: Ambulatory kb3 15:02 Acuity: REBECCA 2 kb3 Triage Assessment: 15:05 General: Appears slender, Behavior is cooperative, crying, flat, quiet. Pain: Denies kb3 pain. 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 Last tetanus immunization: up to date. - Social history:: Smoking status: Patient denies any tobacco usage or history of. Screenin:30 Abuse screen: Denies threats or abuse. Denies injuries from another. Nutritional ko1 screening: No deficits noted. Tuberculosis screening: No symptoms or risk factors identified. Fall Risk None identified. Assessment: 15:30 General: Appears in no apparent distress. comfortable, slender, Behavior is calm, ko1 cooperative, appropriate for age, flat, quiet. Pain: Denies pain. Neuro: No deficits noted. Cardiovascular: No deficits noted. Respiratory: No deficits noted. GI: No deficits noted. : No deficits noted. EENT: No deficits noted. Derm: Wound noted dorsal aspect of left forearm Wound is patient cut herself with a needle on her forearm, bleeding is minimal and controlled. Musculoskeletal: No deficits noted. 18:00 Reassessment: No changes from previously documented assessment. Patient and/or family mb8 updated on plan of care and expected duration. Pain level reassessed. Patient is alert, oriented x 3, equal unlabored respirations, skin warm/dry/pink. 18:30 General: [facility] screening patient in room now. mb8 19:17 General: Appears uncomfortable, slender, Behavior is cooperative, anxious, quiet. aa9 General: pt's mother requested for phone accessibility for pt, WOODS DO approved phone privileges. Neuro: Level of Consciousness is awake, alert, obeys commands, Oriented to person, place, time, situation. Cardiovascular: Patient's skin is warm and dry. Respiratory: Airway is patent Respiratory effort is even, unlabored. 22:00 General: WOODS Do approved Home med; Abilify 2 mg PO . aa9 07/29 00:00 General: Appears in no apparent distress. comfortable, Behavior is calm, quiet. aa9 Cardiovascular: Patient's skin is warm and dry. Respiratory: Airway is patent Respiratory effort is even, unlabored. 03:30 Reassessment: Patient appears in no apparent distress at this time. supine in bed, eyes aa9 closed, chest rise and fall at a equal regular rate, mother at bedside. General: Appears comfortable, Behavior is calm, quiet. Cardiovascular: Patient's skin is warm and dry. Respiratory: Airway is patent Respiratory effort is even, unlabored. 05:40 Reassessment: Patient appears in no apparent distress at this time. pt easily aroused, aa9 denies concerns a this time, mother at bedside. pt supine in bed. General: Appears comfortable, Behavior is calm, quiet. Pain: Denies pain. Neuro: Level of Consciousness is awake, alert, obeys commands, Oriented to person, place, time, situation. Cardiovascular: Patient's skin is warm and dry. Respiratory: Airway is patent Respiratory effort is even, unlabored. 06:38 Reassessment: Patient appears in no apparent distress at this time. [facility] aa9 arrived to transport via ambulance, mother at bedside understands needs for transfer, pt stable, report provided to Tiffanie TREE GIRDLER. General: Appears comfortable, Behavior is calm, quiet. Pain: Denies pain. Neuro: Level of Consciousness is awake, alert, obeys commands, Oriented to person, place, time, situation. Cardiovascular: Patient's skin is warm and dry. Respiratory: Airway is patent Respiratory effort is even, unlabored. Psych: 07/28 15:30 [place] Suicide Severity Screening: In the past month, have you wished you were ko1 or wished you could go to sleep and not wake up? Patient responds "yes." Based off the client's responses additional C-SSRS screening is required. "In the past month, have you actually had any thoughts of killing yourself?" Patient responds "yes." Based off the client's response additional [place] suicide severity screening questions to be further documented on paper forms. "In your lifetime, have you ever done anything, started to do anything, or prepared to do anything to end your life?" Patient responds "yes." Patient reports suicidal intent within 3 past months. Subjective: Patient's mood is sad, Delusions are denied, Hallucinations are denied Having thoughts of suicide. Denies suicidal plan. Objective: Patient is cooperative, using poor eye contact, Speech is soft, Affect is flat, Patient has mutilated themselves by cutting her arm with a needle and attempted to take a handful of tylenol a few days ago but mom caught her. Interventions: Removed personal items and placed in bag. Patient placed in hospital gown. Searched person for dangerous items. Urine collected and sent for urine drug test. Belonging list filled out. Safety Checks: Personal items have been removed. Door is open. Visitors are present. Pt denies substance abuse. Commitment: Patient will be a voluntary commitment. Vital Signs: 15:02 BP 141 / 93; Pulse 74; Resp 20; Temp 97.9; Pulse Ox 100% ; Weight 48.99 kg; Height 5 kb3 ft. 6 in. (167.64 cm); Pain 0/10; 15:30 BP 136 / 82; Pulse 72; Pulse Ox 100% ; Pain 0/10; ko1 19:33 BP 110 / 61; Pulse 93; Resp 17 S; Temp 98.6(O); Pulse Ox 97% on R/A; Pain 0/10; aa9 07/29 01:20 BP 103 / 61; Pulse 71; Resp 18 S; Temp 98.2(O); Pulse Ox 98% on R/A; Pain 0/10; aa9 03:30 BP 102 / 62; Pulse 80; Resp 15 S; Pulse Ox 97% on R/A; aa9 05:30 BP 101 / 60; Pulse 78; Resp 15 S; Temp 98.2(O); Pulse Ox 98% on R/A; Pain 0/10; aa9 07/28 15:02 Body Mass Index 17.43 (48.99 kg, 167.64 cm) kb3 ED Course: 07/28 14:34 Patient arrived in ED. mr 14:39 [facility] jl9 14:40 Jessica Murillo MD is Attending Physician. sp3 14:53 Sujey De Los Santos, GILBERTO is Primary Nurse. ko1 15:05 Triage completed. kb3 15:05 Arm band placed on right wrist. kb3 15:16 Inserted saline lock: 20 gauge in right antecubital area, using aseptic technique. zm Blood collected. 15:17 Acetaminophen Sent. zm 15:17 Basic Metabolic Panel Sent. zm 15:17 CBC with Diff Sent. zm 15:17 ETOH Level Sent. zm 15:17 Hepatic Function Sent. zm 15:17 PT-INR Sent. zm 15:17 Ptt, Activated Sent. zm 15:17 Salicylate Sent. zm 15:17 Urine Drug Screen Sent. zm 15:30 Patient has correct armband on for positive identification. Bed in low position. Side ko1 rails up X2. Adult w/ patient. Valuables Given to family. 15:30 Sitter at bedside. ko1 15:46 EKG done, by ED staff, reviewed by Jessica Murillo MD. zm 16:30 SARS RAPID Sent. ko1 16:31 Urine --Ancillary (enter results) Sent. ko1 17:00 called the [facility]/ dale Shay she will page the screener hydraulic controls technician and some eb should call us back. 17:18 No apparent distress. Resting quietly. Pt visited by mother. Safety Checks: Personal mb8 items have been removed. The door is open or patient has been placed in a hallway bed/chair. A family member and/or friend is present and encouraged to stay. Sitter present at this time. 17:18 Report received from Sujey Wiley RN. mb8 17:20 Primary Nurse role handed off by Sujey De Los Santos RN mb8 17:20 Socrates Quesada, RN is Primary Nurse. mb8 17:20 No provider procedures requiring assistance completed. mb8 18:00 No apparent distress. Resting quietly. Safety Checks: The door is open or patient has mb8 been placed in a hallway bed/chair. A family member and/or friend is present and encouraged to stay. Sitter present at this time. 18:13 Laya from [facility] here to screen patient. eb 18:51 faxed patient chart to the following facilities in attempt to find placement/ [facility], [facility], [facility], [facility], [facility], [facility], [facility], [facility] , [facility], and [facility]. 19:12 Attending Physician role handed off by Jessica Murillo MD ms3 19:12 Lance Woods DO is Attending Physician. ms3 19:55 Primary Nurse role handed off by Socrates Quesada, GILBERTO 21:59 Amy Mcgowan, GILBERTO is Primary Nurse. aa9 23:15 Pt accepted for transfer to [facility]. wm 07/29 00:31 IV discontinued, intact, bleeding controlled, No redness/swelling at site. Pressure aa9 dressing applied. Administered Medications: No medications were administered Medication: 07/28 17:20 VIS not applicable for this client. mb8 Outcome: 19:14 ER care complete, transfer ordered by . ms3 07/29 06:37 Transferred by ground EMS to other acute care facility: [facility]. Transfer aa9 form completed. Condition: stable Instructed on the need for transfer. 06:42 Patient left the ED. aa9 Signatures: Gudelia Aquino mr Megha, Lance Devlin, DO DO ms3 Margoth Elena Setul, MD MD sp3 Yvonne Mason John jl9 Amy Mcgowan, RN RN aa9 Bobbi Melgoza RN RN kb3 Socrates Quesada RN RN mb8 Sujey De Los Santos RN RN ko1 Corrections: (The following items were deleted from the chart) 07/28 16:19 15:30 [place] Suicide Severity Screening: In the past month, have you wished you were ko1 or wished you could go to sleep and not wake up? Patient responds "yes." Based off the client's responses additional C-SSRS screening is required. "In the past month, have you actually had any thoughts of killing yourself?" Patient responds "yes." Based off the client's response additional [place] suicide severity screening questions to be further documented on paper forms. "In your lifetime, have you ever done anything, started to do anything, or prepared to do anything to end your life?" Patient responds "no." ko1 16:19 15:30 Objective: Patient is cooperative, using poor eye contact, Speech is soft, Affect ko1 is flat, Patient has mutilated themselves by cutting her arm with a needle ko1
[2022-07-29 07:07] VITALS: TEMP 98.2
[2022-07-29 07:10] VITALS: BP 101/60; O2SAT 98
--- NOTE | 2022-07-31 16:13 | EKG ---
Test Date: 2022-07-28 Test Time: 15:34:33 Filler Picker: MARNI MEASUREMENT RESULTS: Intervals: Rate: 76 NV: 152 QRSD: 90 QT: 402 QTc: 452 [place]: P: 60 NV: 152 QRS: 56 T: 46 INTERPRETIVE STATEMENTS: Normal sinus rhythm Normal ECG Compared to ECG 07/19/2022 14:09:35 No significant changes Electronically Signed On 07-31-22 16:10:04 CDT by Lokesh Vernon
== END 2022-07-29 06:42 ==
LOC: ER 14:33
DX: R45.851 Suicidal ideations (principal); F32.A Depression, unspecified; Z20.822 Contact with and (suspected) exposure to COVID-19
CPT/HCPCS: 36415; 80048; 80076; 80307; 80320; 80329; 81003; 81025; 85025; 85610; 85730; 87811; 93005; 99285

== ENCOUNTER 2023-09-21 10:51 | Emergency (ER) | payer OTHER ==
--- OUTSIDE RECORDS SUMMARY | 2023-09-21 10:54 | XMS REPORT | Continuity of Care Document ---
Author Name Unknown Address [address] [facility] [address] [place] [address] [facility] thconnect Address [address] [facility] [address] [place] [address] Care Team Providers Care Accountant Controller Name Role Phone SYSTEM, PCP NOT IN Primary Care Physician Irvin Vuong Attending Clinician [phone] IRVIN DEE Attending Clinician Unavaila ble Payers Payer Name Policy Type Policy Number Effective Date Expirati on Date Source [facility] [id number] 2019 00:00:00 Problems Condition Name Condition Details Condition Category Status Onset Date Resolution Date Last Treatment Date Treating Clinician Comments Source No known active problems No known active problems Disease [facility] Allergies, Adverse Reactions, Alerts Allergy Name Allergy Type Status Severity Reaction(s) Onset Date Inactive Date Treating Clinician Comments Source NO KNOWN ALLERGIE S Drug Class Active [facility] Social History Social Habit Start Date Stop Date Quantity Comments Source Exposure to SARS-CoV-2 (event) Not sure [facility] Sex Assigned At 2000 00:00:00 2000 00:00:00 [facility] Smoking Status Start Date Stop Date Source Unknown if ever smoked [facility] Medications Ordered Medication Name Filled Medication Name Start Date Stop Date Current Medication? Ordering Clinician Indication Dosage Frequency Signature (SIG) Comments Components Source LORazepam (ATIVAN) tablet 0.5 mg 01-14 00:24: 00 01-14 00:46 :00 No .5mg 0.5 mg, Oral, ONCE, 1 dose, On Sun01/13/22 at 1930, ALEJANDRO [facility] No known medications 01-13 19:38: 26 No [facility] Vital Signs Vital Name Observation Time Observation Value Comments [facility] Systolic blood pressure 2022-01-14 00:46:45 142 mm[Hg] [facility] Diastolic blood pressure 2022-01-14 00:46:45 89 mm[Hg] [facility] Heart rate 2022-01-14 00:46:45 95 /min [facility] Respiratory rate 2022-01-14 00:46:45 20 /min [facility] Oxygen saturation in Arterial blood by Pulse oximetry 2022-01-14 00:46:45 98 /min [facility] Body temperature 2022-01-13 23:47:00 36.67 Radha [facility] Body height 2022-01-13 23:47:00 167.6 cm [facility] Body weight 2022-01-13 23:47:00 48.988 kg [facility] BMI 2022-01-13 23:47:00 17.43 kg/m2 [facility] Procedures Procedure Date / Time Performed Performing Clinicia n Source NOTICE OF PRIVACY PRACTICES 2022-01-13 23:24:42 Doctor Unassigned, [place] [facility] CONSENT/REFUSAL FOR DIAGNOSIS AND TREATMENT 2022-01-13 23:23:10 Doctor Unassigned, [place] [facility] Encounters Start Date/Time End Date/Time Encounter Type Admission Type Attending Clinicians Care Facility Care Department Encounter ID Source 2022-07-28 21:09:46 Outpatient [facility] [id number] [facility] 2023-09-18 16:54:27 2023-09-18 16:54:27 Outpatient [facility] [id number] Topher Aguillon Anand 2023-09-05 16:11:06 2023-09-05 16:11:06 Outpatient [facility] [id number] Topher Aguillon Anand 2023-09-03 15:43:11 2023-09-03 15:43:11 Outpatient [facility] [id number] Topher Michel 2023-08-17 15:16:29 2023-08-17 15:16:29 Outpatient [facility] [id number] Topher Michel 2023-08-09 15:55:19 2023-08-09 15:55:19 Outpatient [facility] [id number] Topher Michel 2023-08-02 15:56:04 2023-08-02 15:56:04 Outpatient [facility] [id number] Topher Michel 2023-07-31 13:23:48 2023-07-31 13:23:48 Outpatient [facility] SFA [id number] Topher Michel 2023-07-28 14:23:00 2023-07-28 14:23:00 Outpatient [facility] [id number] Topher Michel 2023-07-17 15:02:03 2023-07-17 15:02:03 Outpatient [facility] SFA [id number] Topher Michel 2023-03-26 14:03:12 2023-03-26 14:03:12 Outpatient [facility] SFA [id number] Topher Michel 2023-03-22 11:53:47 2023-03-22 11:53:47 Outpatient [facility] SFA [id number] Topher Michel 2023-02-20 16:37:03 2023-02-20 16:37:03 Outpatient [facility] SFA [id number] Topher Michel 2023-02-15 15:14:01 2023-02-15 15:14:01 Outpatient [facility] SFA [id number] Topher Michel 2023-01-16 08:47:40 2023-01-16 08:47:40 Outpatient [facility] SFA [id number] Topher Michel 2022-08-14 11:15:06 2022-08-14 11:15:06 Outpatient [facility] SFA [id number] Topher Michel 2022-01-13 18:49:00 2022-01-13 21:18:00 [place] [facility] [id number] [facility] 2022-01-13 18:49:00 2022-01-13 21:18:00 Emergency X IRVIN DEE [facility] ERT [id number] [facility] Results Test Description Test Time Test Comments Results Result Co mments Source NO URINE PROVIDED:2023-09-06 06:04:57* Test Item Value Reference Range Interpretation Comme nts NO URINE PROVIDED: (test code = 986) (NOTE) NOTE: Patient urine was not provided. Urine testing will be noted out if no urine specimen is received in an appropriate period of time. UNLESS OTHERWISE INDICATED, ALL TESTING PERFORMED AT [facility] [address] [place] [address] CLEANING MACHINE OPERATOR: SUSAN YANEZ M.D. CLIA NUMBER [id number] [place]. [id number] CULTURE, [id number] 10:47:23SPECIMEN NUMBER: [id number] CULTURE, URINE SPECIMEN NUMBER: [id number] SPECIMEN COMMENT: URINE SOURCE: URINE REPORT STATUS: FINAL FINAL REPORT: 08/19/2023 10-50,000 CFU/ML MIXED MICROBIAL POPULATION PRE SENT, NO PREDOMINATING ORGANISMS;PROBABLE CONTAMINANTS. UNLESS OTHERWISE INDICATED, ALL TESTING PERFORMED AT [facility] [address] [place] [address] CLEANING MACHINE OPERATOR: SUSAN YANEZ M.D. CLIA NUMBER [id number] [place]. [id number] ELECTROPHORESIS 2023-08-07 11:52:56* Test Item Value Reference Range Interpretation Comme nts HEMOGLOBIN A1 (test code = 2575) 97.6 % 95.0-98.5 HEMOGLOBIN A2 (test code = 2576) 2.4 % 1.6-3.7 HEMOGLOBIN F () (test code = 2722) 0.0 % 0.0-2.0 HEMOGLOBIN S (test code = 2724) NONE % NONE DETECTED HEMOGLOBIN C (test code = 2726) NONE % NONE DETECTED OTHER HEMOGLOBIN VARIANT (test code = 61137) NONE DETEC % NONE DETECTED PATHOLOGIST'S INTERPRETATION (test code = 2577) (NOTE) NO ABNORMAL HEMOGLOBINS IDENTIFIED. IF NOT ALREADY PERFORMED, TESTINGFOR SERUM IRON, TIBC, AND FERRITIN IS SUGGESTED. IF IRON DEFICIENCYEXISTS AND IF HEMOGLOBIN DOES NOT NORMALIZE AFTER IRON STORES AREREPLENISHED, A REPEAT HEMOGLOBIN ELECTROPHORESIS IS SUGGESTED. IRONDEFICIENCY CAN OBSCURE THE DIAGNOSIS OF ALPHA-THALASSEMIA OR CAN CAUSEA SPURIOUS DECREASE IN HbA2, OBSCURING THE DIAGNOSIS OFBETA-THALASSEMIA. DEDE BACA M.D. PAP TEST, THINPREP, [id number] 16:57:26* Test Item Value Reference Range Interpretation Comme nts SOURCE: (test code = 8001) Cervical/Endoce rvical SLIDES: (test code = 8011) 2 LMP: (test code = 8021) 05/27/2023 SPECIMEN ADEQUACY: (test code = 41636) (NOTE) Satisfactory for evaluation. Endocervical cells/transformation zone component present. INTERPRETATION: (test code = 75419) NILM/NO EPITH. ABNORMALITY;SEE BELOW --- - NEGATIVE FOR INTRAEPITHELIAL LESION OR MALIGNANCY (NILM) ---- OTHER COMMENTS: (test code = 8081) (NOTE) Shift in chrystal suggestive of bacterial vaginosis. Glacial acetic acid added due to blood/mucus in specimen. CLINICAL PHYSICIAN ASSISTANT : (test code = 8101) Jennifer Maretll, CT(ASCP) QC TECHNOLOGIST: (test code = 8111) Johnnie Vergara,[facility](ASCP)I LOCATION: (test code = 40335) (NOTE) Specimens proces sed and interpreted at [facility], [address] [place] [address], , CLIA: [id number] CPT: (test code = 8140) (NOTE) 72967 UNLESS OTH ERWISE INDICATED, COMPUTER AIDED AND CLINICAL PHYSICIAN ASSISTANT SCREENING PERFORMED. The Pap test is a screening test with an inherent, but low probability of error. Your patient should be reminded to consult you immediately if she experiences any suspicious signs or symptoms, regardless of her Pap test result. An alternate report format containing images or consolidated prior Pap history is available as applicable. VARICELLA ZOSTER [id number] 13:20:46* Test Item Value Reference Range Interpretation Comme nts VARICELLA ZOSTER IgG (test code = 36691) 1182 INDEX SEE BELOW INTERPRETATION V ZV IgG NEGATIVE . . . . . . . . . . . . INDEX <135 EQUIVOCAL. . . . . . . . . . . . INDEX 135-164 NOTE: CONSIDER RETESTING IN A CLINICALLY SUITABLE PERIOD OF TIME, NO SOONER THAN 1-2 WEEKS. POSITIVE . . . . . . . . . . . . INDEX >=165 HCG, [id number] 06:33:57* Test Item Value Reference Range Interpretation Comme nts HCG, QUANTITATIVE (test code = 2506) 92431 MIU/ML SEE BELOW EXPECTED VALUES FOR HCG GST.AGE UNITS RANGE GST. AGE UNITS RANGE3 WEEKS MIU/ML 6-71 10 WEEKS MIU/ML 46,509-186,9774 WEEKS MIU/ML 10-750 12 WEEKS MIU/ML 27,832-210,6125 WEEKS MIU/ML 217-7,138 14 WEEKS MIU/ML 13,950-62,5306 WEEKS MIU/ML 158-31,795 15 WEEKS MIU/ML 12,039-70,9717 WEEKS MIU/ML 3,697-163,563 16 WEEKS MIU/ML 9,040-56,4518 WEEKS MIU/ML 32,065-149,571 17 WEEKS MIU/ML 8,175-55,8689 WEEKS MIU/ML 63,803-151,410 18 WEEKS MIU/ML 8,099-58,176MALES and NON- FEMALES . . . . . . . . MIU/ML 0-3YBIT-HTDNLVKSLY FEMALES . . . . . . . . . . . . MIU/ML <=7 DRUG ABUSE SCREEN 10 REFLEX [id number] 05:54:57* Test Item Value Reference Range Interpretation Comme nts AMPHETAMINES (test code = 3201) NEGATIVE NEGATIVE BARBITURATES (test code = 3202) NEGATIVE NEGATIVE BENZODIAZEPINES (test code = 3203) NEGATIVE NEGATIVE CANNABINOIDS (test code = 3204) NEGATIVE NEGATIVE COCAINE METABOLITE (test code = 3205) NEGATIVE NEGATIVE OPIATES (test code = 3209) NEGATIVE NEGATIVE OXYCODONE (test code = 97359) NEGATIVE NEGATIVE PHENCYCLIDINE (test code = 3210) NEGATIVE NEGATIVE METHADONE (test code = 3207) NEGATIVE NEGATIVE BUPRENORPHINE (test code = 19055) NEGATIVE NEGATIVE SOURCE (test code = 047612) URINE SEE BELOW FO R THRESHOLDS AND IMPORTANT METHOD NOTES ANALYTE SCREENING CUTOFF CONFIRMATORY CUTOFF AMPHETAMINES 500 NG/ML 100 NG/MLBARBITURATES 200 NG/ML 100 NG/MLBENZODIAZEPINES 200 NG/ML 100 NG/MLCANNABINOIDS (THC) 20 NG/ML 15 NG/MLCOCAINE METABOLITES 150 NG/ML 100 NG/MLOPIATE METABOLITES 300 NG/ML 100 NG/MLOXYCODONE 100 NG/ML 100 NG/MLPHENCYCLIDINE (PCP) 25 NG/ML 25 NG/MLMETHADONE 300 NG/ML 100 NG/MLBUPRENORPHINE 5 NG/ML 5 NG/ML NOTE: Screening methodology is qualitative Enzyme Immunoassay.The screening method may be less sensitive for certain medicationsincluding clonazepam and lorazepam in the benzodiazepine assay andtramadol or fentanyl in the opiate assay, amongst others. Patientcompliance, hydration status, timing and dose of medications, drugabsorption and specimen quality may affect screening assay.For clinical discrepancies, consider directed testing for specificcompounds or contact the laboratory within specimen stability toforward for confirmatory testing. This test is specified for medicalpurposes only. It is not valid for forensic use. UNLESS OTHERWISE INDICATED, ALL TESTING PERFORMED AT [facility] [address] [place] [address] CLEANING MACHINE OPERATOR: SUSAN YANEZ M.D. CLIA NUMBER [id number] [facility] [place]. [id number] OBSTETRIC PANEL + [id number] 05:53:01* Test Item Value Reference Range Interpretation Comme nts WBC (test code = 1001) 7.4 K/UL 3.5-11.0 RBC (test code = 1002) 5.30 M/UL 3.80-5.40 HEMOGLOBIN (test code = 1003) 11.2 G/DL 11.5-15.5 L HEMATOCRIT (test code = 1004) 36.2 % 34.0-45.0 MCV (test code = 1005) 68.3 fL 80.0-99.0 L MCH (test code = 1006) 21.1 PG 25.0-33.0 L MCHC (test code = 1007) 30.9 G/DL 31.0-36.0 L RDW (test code = 1038) 19.4 % 11.5-15.0 H NEUTROPHILS (test code = 1008) 62.0 % LYMPHOCYTES (test code = 1010) 28.0 % MONOCYTES (test code = 1011) 7.3 % EOSINOPHILS (test code = 1012) 1.9 % BASOPHILS (test code = 1013) 0.5 % IMMATURE GRANULOCYTES (test code = 1036) 0.3 % NUCLEATED RBCS (test code = 1065) 0.0 /100 WBC'S See_Comment [Automated me ssage] The system which generated this result transmitted reference range: 0.0. The reference range was not used to interpret this result as normal/abnormal. PLATELET COUNT (test code = 1015) 463 K/UL 130-400 H ABSOLUTE NEUTROPHILS (test code = 1066) 4.56 K/UL 1.50-7.50 ABSOLUTE LYMPHOCYTES (test code = 1067) 2.06 K/UL 1.00-4.00 ABSOLUTE MONOCYTES (test code = 1068) 0.54 K/UL 0.20-1.00 ABSOLUTE EOSINOPHILS (test code = 1040) 0.14 K/UL 0.00-0.50 ABSOLUTE BASOPHILS (test code = 1069) 0.04 K/UL 0.00-0.20 ABS IMMATURE GRANULOCYTES (test code = 1020) 0.02 K/UL 0.00-0.10 ABS NUCLEATED RBCS (test code = 73903) 0.00 K/UL 0.00-0.11 BLOOD TYPE AND RH (test code = 3901) B POSITIVE A HISTORICAL RECORD CHECK FOR PREVIOUS RESULTS IS NOT PERFORMED.THESE RESULTS SHOULD BE CORRELATED WITH RESULTS OF PRIOR BLOODTYPING AND ANTIBODY SCREEN STUDIES. ANTIBODY SCREEN (test code = 3902) NEGATIVE NEGATIVE A HISTORICAL RECORD CHECK FOR PREVIOUS RESULTS IS NOT PERFORMED.THESE RESULTS SHOULD BE CORRELATED WITH RESULTS OF PRIOR BLOODTYPING AND ANTIBODY SCREEN STUDIES. RUBELLA ANTIBODY SCREEN (test code = 4600) 177 IU/ML SEE BELOW RUBELLA IgG INTERP (test code = 24548) REACTIVE REACTIVE INTERPRETATI ON UNITS RANGE NON-REACTIVE/NON-IMM UNE IU/ML <10 REACTIVE/IMMUNE IU/ML >=10 HEPATITIS B SURF AG (test code = 2739) NON-REACTIVE NON-REACTIVE RPR (test code = 44581) NON-REACTIVE NON-REACTIVE RPR TITER (test code = 3500) NOT INDIC. TITER NOT INDIC. HIV 1/2 4TH GEN, RFLX CONF (test code = 3514) NON-REACTIVE NON-REACTIVE HEPATITIS C [id number] 05:53:01* Test Item Value Reference Range Interpretation Comme nts HEPATITIS C ANTIBODY (test c ode = 4675) NON-REACTIVE NON-REACTIVE [id number] 03:48:39* Test Item Value Reference Range Interpretation Comme nts RPR RESULT (test code = 3501) NON-REACTIVE NON-REACTIVE RPR TITER (test code = 3500) NOT INDIC. TITER NOT INDIC. HPV HIGH RISK WITH GENOTYPE, [id number] 15:53:01* Test Item Value Reference Range Interpretation Comme nts HPV HIGH RISK INTERP (test code = 75636) POSITIVE NEGATIVE A HPV 16 (test code = 08075) NEGATIVE HPV 18 (test code = 48218) NEGATIVE HPV, HR, OTHER GENOTYPES (test code = 06262) POSITIVE A Testing methodol ogy is real-time PCR utilizing hydrolysis probes with the Mia Tata 4800 system. The test individually detects genotypes 16 and 18, as well as the other 12 high risk types (31,33,35,39,45,51,52,56 ,58,59,66,68). The expected result is negative. A negative result does not rule out the presence of HPV not included in the genotype set, a low level of infection or specimen sampling error. UNLESS OTHERWISE INDICATED, ALL TESTING PERFORMED AT [facility] [address] [place] [address] CLEANING MACHINE OPERATOR: SUSAN YANEZ M.D. [place] NUMBER [id number] [facility] [place]. [id number] CULTURE, [id number] 12:58:34SPECIMEN NUMBER: [id number] CULTURE, URINE SPECIMEN NUMBER: [id number] SPECIMEN COMMENT: URINE SOURCE: URINE REPORT STATUS: FINAL ISOLATE NUMBER 1: ORGANISM: 07/30/2023 >100,000 CFU/ML GRAM NEGATIVE BACILLI IDENTIFICATION: 07/31/2023 ESCHERICHIA COLI E. COLI AMOXICILLIN/CA SENSITIVE <=8/4AMPICILLIN RESISTANT >16CEFAZOLIN SENSITIVE <=2CEFTRIAXONE SENSITIVE <=1CIPROFLOXACIN SENSITIVE <=1LEVOFLOXACIN SENSITIVE <=2NITROFURANTOIN SENSITIVE <=32PIP/TAZOBAC SENSITIVE <=16TETRACYCLINE SENSITIVE <=4TOBRAMYCIN SENSITIVE <=4TRIMETH/SULFA SENSITIVE <=2/38 NOTE: NUMBERS DISPLAYED REPRESENT MINIMUM INHIBITORY CONCENTRATION (ALMITA) WHICH IS EXPRESSED IN MCG/ML.CT/NG, NAAT, [id number] 12:21:07* Test Item Value Reference Range Interpretation Comme nts CHLAMYDIA, NAAT, THINPREP (test code = 39550) POSITIVE NEGATIVE A Testing is perfo rmed with the Mia Ttaa 6800/8800 systems usingreal-time Polymerase Chain Reaction (PCR) method. GONORRHEA, NAAT, THINPREP (test code = 30210) NEGATIVE NEGATIVE A negative resul t does not exclude low level infection, specimensampling error, or collection error. Testing is performed with the Mia Tata 6800/8800 systems usingreal-time Polymerase Chain Reaction (PCR) method. VAGINAL PATHOGENS DNA [id number] 10:31:23* Test Item Value Reference Range Interpretation Comme nts BROOKE SPECIES (test code = 47110) NEGATIVE NEGATIVE G. VAGINALIS (test code = 31314) POSITIVE NEGATIVE A T. VAGINALIS (test code = 36201) NEGATIVE NEGATIVE Note: The [facility] irm VPIII Microbial Identification Testis a DNA probe test intended for use in the detectionand identification of Brooke species, Gardnerellavaginalis and Trichomonas vaginalis nucleic acid. UNLESS OTHERWISE INDICATED, ALL TESTING PERFORMED AT [facility] [address] [place] [address] CLEANING MACHINE OPERATOR: SUSAN YANEZ M.D. CLIA NUMBER [id number] [facility] [place]. [id number]
[2023-09-21 11:37] LABS: Absolute Lymphocytes (CBC) 2.1 K/uL (0.7-4.9); Hematocrit 38.2 % (36.0-45.0); Lymphocytes % 17.9 % (15.3-44.8); MCV 69.8 fL (80-100); MPV 8.3 fL (7.6-11.3); Platelets 358 thou/uL (152-406); RBC Red Blood Cell Count 5.47 M/uL (3.86-4.86)
[2023-09-21 11:39] LABS: Specific Gravity 1.012 (1.005-1.030); Urine Bacteria None Seen /HPF (<20); Urine Bilirubin NEGATIVE (Negative); Urine Blood 2+ (Negative); Urine Clarity Turbid (Clear); Urine Color Light-Yellow (Yellow); Urine Glucose NEGATIVE (Negative); Urine Mucus Slight /HPF (None Seen); Urine Protein NEGATIVE (Negative); Urine RBC <5 /HPF (None Seen); Urine Urobilinogen Normal (Normal); Urine pH 6.5 (5.0-7.0)
[2023-09-21 12:11] LABS: Potassium 3.3 mEq/L (3.5-5.1)
[2023-09-21 12:24] LABS: Blood Morphology Comment NOTED (NOT SEEN); Platelet Estimate ADEQ; White Blood Cell Scan OK (OK)
[2023-09-21 12:25] LABS: Anisocytosis 1+
--- NOTE | 2023-09-21 12:27 | RAD REPORT ---
EXAM DESCRIPTION: US - 1St Trimest Single 1St Fetus - 09/21/2023 12:09 pm CLINICAL HISTORY: with vaginal bleeding COMPARISON: None FINDINGS: The uterus measures 11 x 8 x 9 centimeters. A normal appearing gestational sac is present within the endometrium. Within this is a yolk sac and pole with a crown-rump length 4.4 centim eters . Cardiac activity was not visualized. Irregularly shaped gestational sac Neither ovary seen secondary overlying bowel gas The right and left adnexa are unremarkable No significant free fluid is seen. IMPRESSION: demise. Intrauterine with an estimated gestational age 11 weeks 1 day
--- NOTE | 2023-09-21 12:30 | ER ---
Nurse's Notes [facility] Name: Roland Blake Age: 22 yrs Sex: Female : 2000 Arrival Date: 09/21/2023 Time: 10:51 Bed 20 Private MD: Diagnosis: Incomplete miscarriage, suicidal ideation, grief reaction Presentation: 09/21 11:03 Chief complaint: Vaginal bleeding since this morning. Pt is approx 4 months , hb , LMP 06/06, [place] 03/20/24, Sees Shira Montejo at [facility] [place] in [place]. Coronavirus screen: At this time, the client does not indicate any symptoms associated with coronavirus-19. Ebola Screen: No symptoms or risks identified at this time. Initial Sepsis Screen: Does the patient meet any 2 criteria? No. Patient's initial sepsis screen is negative. Does the patient have a suspected source of infection? No. Patient's initial sepsis screen is negative. Risk Assessment: Do you want to hurt yourself or someone else? Patient reports no desire to harm self or others. Onset of symptoms was September 21, 2023. 11:03 Method Of Arrival: Ambulatory hb 11:03 Acuity: REBECCA 3 hb Historical: - PMHx: 11:02 Anxiety; self harm; depressive disorder; tm6 - Immunization history:: Adult Immunizations up to date. - Social history:: Smoking status: unknown. Screenin:03 [facility] ED Fall Risk Assessment (Adult) History of falling in the last 3 months, tm6 including since admission No falls in past 3 months (0 pts). Abuse screen: Denies threats or abuse. Denies injuries from another. Nutritional screening: No deficits noted. Tuberculosis screening: No symptoms or risk factors identified. Assessment: 11:01 General: Appears in no apparent distress. Behavior is calm, cooperative. Pain: tm6 Complains of pain in suprapubic area, right lower quadrant and left lower quadrant Pain currently is 3 out of 10 on a pain scale. Quality of pain is described as crampy. Neuro: Level of Consciousness is awake, alert, obeys commands, Oriented to person, place, time, situation. Cardiovascular: Capillary refill < 3 seconds Patient's skin is warm and dry. Respiratory: Airway is patent Respiratory effort is even, unlabored, Respiratory pattern is regular, symmetrical. GI: Abdomen is round non-distended. : Reports discharge, bloody. 11:02 EENT: No signs and/or symptoms were reported regarding the EENT system. Derm: No signs tm6 and/or symptoms reported regarding the dermatologic system. Musculoskeletal: No signs and/or symptoms reported regarding the musculoskeletal system. 12:13 Reassessment: Patient appears in no apparent distress at this time. Patient and/or tm6 family updated on plan of care and expected duration. Pain level reassessed. Patient is alert, oriented x 3, equal unlabored respirations, skin warm/dry/pink. 12:55 Reassessment:. General: Behavior is crying, restless. tm6 13:14 Reassessment: Patient states she does not want to continue living and wants to . MD schaffer6 notified. Supervisor Stripping paged. 15:08 Reassessment: patient with family. Patient still states she wishes to . General: tm6 Behavior is crying. 15:09 Reassessment: Patient and/or family updated on plan of care and expected duration. Pain tm6 level reassessed. Patient is alert, oriented x 3, equal unlabored respirations, skin warm/dry/pink. Patient no longer crying. 16:45 Reassessment: Patient appears in no apparent distress at this time. Patient is alert, nj1 oriented x 3, equal unlabored respirations, skin warm/dry/pink. 16:50 Reassessment: [facility] ambulance here to transport patient. Report given to Aj TAVERAS. nj1 Vital Signs: 11:02 BP 133 / 70; Pulse 79; Resp 17; Pulse Ox 99% on R/A; Pain 3/10; tm6 11:03 BP 133 / 77; Pulse 70; Resp 16; Temp 97.5(TE); Pulse Ox 100% on R/A; Weight 63.05 kg; hb Height 5 ft. 6 in. ; Pain 0/10; 12:13 BP 117 / 71; Pulse 68; Resp 17; Pulse Ox 99% on R/A; Pain 0/10; tm6 16:55 BP 122 / 81; Pulse 85; Resp 16; Pulse Ox 97% on R/A; nj1 11:03 Body Mass Index 22.43 (63.05 kg, 167.64 cm) hb 11:02 Pain Scale: Adult tm6 11:03 Pain Scale: Adult hb 12:13 Pain Scale: Adult tm6 ED Course: 10:53 Patient arrived in ED. mg5 10:54 Jessica Murillo MD is Attending Physician. sp3 11:01 Teodoro Prado, RN is Primary Nurse. tm6 11:03 Patient has correct armband on for positive identification. Bed in low position. Call tm6 light in reach. Side rails up X 1. Provided Education on: VS monitoring. Door closed. Noise minimized. 11:05 Triage completed. hb 11:24 No provider procedures requiring assistance completed. Inserted saline lock: 20 gauge tm6 in right antecubital area, using aseptic technique. 12:10 1St Trimest Single 1St Fetus In Process Unspecified. EDMS 12:51 IV discontinued, intact, bleeding controlled, No redness/swelling at site. Pressure aw1 dressing applied. 14:10 called Donald the of [facility] to see if they would be able to assist eb us with the care of the patient/ He says they can and asked us to fax over the clinicals/ [phone]. 14:45 per Manuel from [facility] they will have to decline the patient/ per her house eb lower in supervisor the patient may need medical if she has complications from the miscarriage and can't accept the patient without medical. 14:50 attempted to call [facility] transfer Center/ phone rang for 3 minutes than the call eb was dropped. 15:17 faxed patient record to [facility] and [facility]. eb 15:28 connected Alva Byrd from [facility] with Teodoro Rn for eb nurse to nurse. 15:37 administrative approval given by Andreia Lovell/ patient has been accepted to [facility] [address]/ Dr. Tanesha Benavides has accepted the patient in transfer without conference with Dr. Murillo/ they request that we call [phone] once the patient leaves with EMS. 15:45 [facility] called for transport/ eta one hour. eb 17:05 Patient did not have IV access during this emergency room visit. nj1 Administered Medications: 12:53 Drug: Ibuprofen PO 800 mg PO once Route: PO; tm6 Medication: 17:05 VIS not applicable for this client. nj1 Outcome: 12:30 Discharge ordered by MD. foy 14:10 ER care complete, transfer ordered by MD. foy 16:50 Transferred by ground EMS to other acute care facility: [address] 16:50 Condition: stable [facility] 16:50 Instructed on the need for transfer, 16:56 Patient left the ED. [facility] Signatures: Dispatcher [employer] EDMS Shira Corrigan, RN RN Sarai Cleveland Setul, MD MD sp3 Jasmin Salas RN RN [facility] Siomara Leung [facility] Gwen Mccann 5 Teodoro Prado RN RN tm6 Corrections: (The following items were deleted from the chart) 12:57 12:55 Neuro: tm6 tm6 17:07 17:06 Patient left the ED. [place] [id number]
--- NOTE | 2023-09-21 12:30 | EDPHYS ---
Physician Documentation [facility] Name: Roland Blake Age: 22 yrs Sex: Female : 2000 Arrival Date: 09/21/2023 Time: 10:51 Bed 20 Private MD: ED Physician Jessica Murillo HPI: 09/21 11:53 This 22 yrs old Female presents to ER via Ambulatory with complaints of Preg sp3 4months-bleeding. 11:53 22-year-old female presents as a A1 chief complaint vaginal bleeding. Patient is sp3 with ultrasound dating on August 09, 2023 listing as 9 weeks 5 days. Patient awoke this morning with vaginal bleeding and abdominal cramping consistent with period type pain. Patient denies fever, headache, neck pain, shortness of breath, chest pain, upper abdominal pain, vomiting, diarrhea, back pain, bleeding anywhere else, or any other signs or symptoms on ROS at this time.. Historical: - PMHx: 11:02 Anxiety; self harm; depressive disorder; tm6 - Immunization history:: Adult Immunizations up to date. - Social history:: Smoking status: unknown. ROS: 11:55 Constitutional: Negative for fever, chills, and weight loss, Eyes: Negative for injury, sp3 pain, redness, and discharge, ENT: Negative for injury, pain, and discharge, Neck: Negative for injury, pain, and swelling, Cardiovascular: Negative for chest pain, palpitations, and edema, Respiratory: Negative for shortness of breath, cough, wheezing, and pleuritic chest pain, Back: Negative for injury and pain, MS/Extremity: Negative for injury and deformity, Skin: Negative for injury, rash, and discoloration, Neuro: Negative for headache, weakness, numbness, tingling, and seizure, Psych: Negative for depression, anxiety, suicide ideation, homicidal ideation, and hallucinations, Allergy/Immunology: Negative for hives, rash, and allergies, Endocrine: Negative for neck swelling, polydipsia, polyuria, polyphagia, and marked weight changes, 11:55 All other systems are negative, Exam: 11:55 Constitutional: This is a well developed, well nourished patient who is awake, alert, sp3 and in no acute distress. Head/Face: Normocephalic, atraumatic. Eyes: Pupils equal round and reactive to light, extra-ocular motions intact. Lids and lashes normal. Conjunctiva and sclera are non-icteric and not injected. Cornea within normal limits. Periorbital areas with no swelling, redness, or edema. Neck: Trachea midline, no thyromegaly or masses palpated, and no cervical lymphadenopathy. Supple, full range of motion without nuchal rigidity, or vertebral point tenderness. No Meningismus. Chest/axilla: Normal chest wall appearance and motion. Nontender with no deformity. No lesions are appreciated. Cardiovascular: Regular rate and rhythm with a normal S1 and S2. No gallops, murmurs, or rubs. Normal PMI, no JVD. No pulse deficits. Respiratory: Lungs have equal breath sounds bilaterally, clear to auscultation and percussion. No rales, rhonchi or wheezes noted. No increased work of breathing, no retractions or nasal flaring. Back: No spinal tenderness. No costovertebral tenderness. Full range of motion. Skin: Warm, dry with normal turgor. Normal color with no rashes, no lesions, and no evidence of cellulitis. MS/ Extremity: Pulses equal, no cyanosis. Neurovascular intact. Full, normal range of motion. Neuro: Awake and alert, GCS 15, oriented to person, place, time, and situation. Cranial nerves II-XII grossly intact. Motor strength 5/5 in all extremities. Sensory grossly intact. Cerebellar exam normal. Normal gait. Psych: Awake, alert, with orientation to person, place and time. Behavior, mood, and affect are within normal limits. 11:55 Abdomen/GI: Lower abdominal pain to palpation mild in nature. Positive vaginal bleeding confirmed., Vital Signs: 11:02 BP 133 / 70; Pulse 79; Resp 17; Pulse Ox 99% on R/A; Pain 3/10; tm6 11:03 BP 133 / 77; Pulse 70; Resp 16; Temp 97.5(TE); Pulse Ox 100% on R/A; Weight 63.05 kg; hb Height 5 ft. 6 in. ; Pain 0/10; 12:13 BP 117 / 71; Pulse 68; Resp 17; Pulse Ox 99% on R/A; Pain 0/10; tm6 16:55 BP 122 / 81; Pulse 85; Resp 16; Pulse Ox 97% on R/A; nj1 11:03 Body Mass Index 22.43 (63.05 kg, 167.64 cm) hb 11:02 Pain Scale: Adult tm6 11:03 Pain Scale: Adult hb 12:13 Pain Scale: Adult tm6 MDM: 11:06 Patient medically screened. sp3 11:55 Data reviewed: vital signs, nurses notes, lab test result(s), radiologic studies. ED sp3 course: 22-year-old female with threatened /miscarriage. Will obtain ultrasound, blood work and hCG levels. Disposition pending workup and patient course.. 12:29 ED course: Ultrasound demonstrates demise. hCG at 3500. Will diagnose as sp3 incomplete spontaneous miscarriage and patient to follow-up with her OB doctor. RhoGAM not indicated as blood type is positive Rh.. 14:10 ED course: Patient after finding out about demise, had an extreme grief reaction sp3 and became suicidal. After allowing adequate time to see if this was transient and not it has been decided that patient will need inpatient psychiatric care. 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 At this time she now has a one-to-one sitter and we will be transferring to [facility].. 09/21 11:06 Order name: Abo/rh Typing; Complete Time: 12:25 sp3 09/21 11:06 Order name: Basic Metabolic Panel; Complete Time: 12:25 sp3 09/21 11:06 Order name: CBC with Diff; Complete Time: 12:25 sp3 09/21 11:06 Order name: Quantitative Hcg; Complete Time: 12:25 sp3 09/21 11:06 Order name: Urinalysis w/ reflexes; Complete Time: 12:25 sp3 09/21 11:41 Order name: CBC Smear Scan; Complete Time: 12:25 EDMS 09/21 12:10 Order name: 1St Trimest Single 1St Fetus; Complete Time: 12:29 EDMS 09/21 11:06 Order name: IV Saline Lock; Complete Time: 11:24 sp3 09/21 11:06 Order name: Labs collected and sent; Complete Time: 11:24 sp3 09/21 11:06 Order name: NPO; Complete Time: 11:07 sp3 Administered Medications: 12:53 Drug: Ibuprofen PO 800 mg PO once Route: PO; tm6 Disposition Summary: 09/21/23 14:10 Transfer Ordered Notes: Transfer Location: Psych Facility sp3 Reason: Higher level of care sp3 Condition: Fair(09/21/23 14:10) sp3 Problem: an acute exacerbation sp3 Symptoms: have worsened sp3 Accepting Physician: Kesha molina(09/21/23 17:06) nj1 Diagnosis - Incomplete miscarriage, suicidal ideation, grief reaction sp3 Forms: - Medication Reconciliation Form sp3 - SBAR form sp3 Signatures: Dispatcher [employer] EDMS Jessica Murillo MD MD sp3 Jasmin Salas RN RN nj1 Teodoro Prado RN RN tm6 Corrections: (The following items were deleted from the chart) 11:18 11:07 Transvaginal Ob+US.RAD.BRZ ordered. EDMS EDMS 12:10 11:18 OB Limited ordered. EDMS EDMS 14:09 12:30 Home sp3 sp3 14:09 12:30 Stable sp3 sp3 14:09 12:30 Incomplete spontaneous without complication sp3 sp3 17:06 14:10 Kesha molina sp3 nj1
[2023-09-21] MEDS ORDERED: IBUPROFEN 400 MG TAB ONE (13:07)
[2023-09-21 18:21] VITALS: BP 122/81; O2SAT 97
[2023-09-21 18:22] VITALS: TEMP 97.5
== END 2023-09-21 17:06 ==
LOC: ER 10:51
DX: O03.4 Incomplete spontaneous abortion without complication (principal); F43.20 Adjustment disorder, unspecified; R45.851 Suicidal ideations
CPT/HCPCS: 36415; 76801; 80048; 81001; 84702; 85025; 86900; 86901; 99285

== ENCOUNTER → 2023-12-04 | Emergency (ER) | payer OTHER ==
--- OUTSIDE RECORDS SUMMARY | 2023-12-04 17:08 | XMS REPORT | Continuity of Care Document ---
Author Name Unknown Address [address] [facility] [address] [place] [address] [facility] thconnect Address [address] [facility] [address] [place] [address] Care Team Providers Care Watch Assembly Inspector Name Role Phone SYSTEM, PCP NOT IN Primary Care Physician Irvin Vuong Attending Clinician [phone] IRVIN DEE Attending Clinician Unavaila ble Payers Payer Name Policy Type Policy Number Effective Date Expirati on Date Source COMMERCIAL FFS CI [id number] [facility] [id number] 00:00:00 Problems Condition Name Condition Details Condition Category Status Onset Date Resolution Date Last Treatment Date Treating Clinician Comments Source No known active problems No known active problems Disease [facility] Allergies, Adverse Reactions, Alerts Allergy Name Allergy Type Status Severity Reaction(s) Onset Date Inactive Date Treating Clinician Comments Source NO KNOWN ALLERGIE S Drug Class Active [facility] Social History Social Habit Start Date Stop Date Quantity Comments Source Exposure to SARS-CoV-2 (event) Not sure [facility] Sex Assigned At 2000 00:00:00 2000 00:00:00 [facility] Smoking Status Start Date Stop Date Source Unknown if ever smoked [facility] Medications Ordered Medication Name Filled Medication Name Start Date Stop Date Current Medication? Ordering Clinician Indication Dosage Frequency Signature (SIG) Comments Components Source LORazepam (ATIVAN) tablet 0.5 mg 01-14 00:24: 00 01-14 00:46 :00 No .5mg 0.5 mg, Oral, ONCE, 1 dose, On Sun01/13/22 at 1930, ALEJANDRO [facility] No known medications 01-13 19:38: 26 No [facility] Vital Signs Vital Name Observation Time Observation Value Comments S fabiola Systolic blood pressure 2022-01-14 00:46:45 142 mm[Hg] [facility] Diastolic blood pressure 2022-01-14 00:46:45 89 mm[Hg] [facility] Heart rate 2022-01-14 00:46:45 95 /min [facility] Respiratory rate 2022-01-14 00:46:45 20 /min [facility] Oxygen saturation in Arterial blood by Pulse oximetry 2022-01-14 00:46:45 98 /min [facility] Body temperature 2022-01-13 23:47:00 36.67 Radha [facility] Body height 2022-01-13 23:47:00 167.6 cm [facility] Body weight 2022-01-13 23:47:00 48.988 kg [facility] BMI 2022-01-13 23:47:00 17.43 kg/m2 [facility] Procedures Procedure Date / Time Performed Performing Clinicia n Source NOTICE OF PRIVACY PRACTICES 2022-01-13 23:24:42 Doctor Unassigned, [place] [facility] CONSENT/REFUSAL FOR DIAGNOSIS AND TREATMENT 2022-01-13 23:23:10 Doctor Unassigned, [place] [facility] Encounters Start Date/Time End Date/Time Encounter Type Admission Type Attending Clinicians Care Facility Care Department Encounter ID Source 2023-09-25 16:50:01 Outpatient GEMINI SINGLETARY [id number] [facility] 2022-07-28 21:09:46 [facility] [id number] [facility] 2023-12-04 08:23:44 2023-12-04 08:23:44 Outpatient SFA SFA [id number] Topher Michel 2023-11-21 16:58:22 2023-11-21 16:58:22 Outpatient SFA SFA [id number] Topher Michel 2023-11-19 16:07:09 2023-11-19 16:07:09 Outpatient SFA SFA [id number] Topher Michel 2023-11-13 09:34:42 2023-11-13 09:34:42 Outpatient SFA SFA [id number] Topher Michel 2023-10-30 15:22:15 2023-10-30 15:22:15 Outpatient SFA SFA [id number] Topher Michel 2023-10-23 15:52:48 2023-10-23 15:52:48 Outpatient SFA SFA [id number] Topher Michel 2023-10-05 16:07:32 2023-10-05 16:07:32 Outpatient SFA SFA [id number] Topher Michel 2023-10-04 10:56:19 2023-10-04 10:56:19 Outpatient SFA SFA [id number] Topher Michel 2023-10-02 14:46:17 2023-10-02 14:46:17 Outpatient SFA SFA [id number] Topher Michel 2023-10-01 15:39:09 2023-10-01 15:39:09 Outpatient SFA SFA [id number] Topher Michel 2023-09-18 16:54:27 2023-09-18 16:54:27 Outpatient SFA SFA [id number] Topher Michel 2023-09-05 16:11:06 2023-09-05 16:11:06 Outpatient SFA SFA [id number] Topher Michel 2023-09-03 15:43:11 2023-09-03 15:43:11 Outpatient SFA SFA [id number] Topher Michel 2023-08-17 15:16:29 2023-08-17 15:16:29 Outpatient SFA SFA [id number] Topher Michel 2023-08-09 15:55:19 2023-08-09 15:55:19 Outpatient SFA SFA [id number] Topher Michel 2023-08-02 15:56:04 2023-08-02 15:56:04 Outpatient SFA SFA [id number] Topher Michel 2023-07-31 13:23:48 2023-07-31 13:23:48 Outpatient SFA SFA [id number] Topher Michel 2023-07-28 14:23:00 2023-07-28 14:23:00 Outpatient SFA SFA [id number] Topher Michel 2023-07-17 15:02:03 2023-07-17 15:02:03 Outpatient SFA SFA [id number] Topher Michel 2023-03-26 14:03:12 2023-03-26 14:03:12 Outpatient SFA SFA [id number] Topher Michel 2023-03-22 11:53:47 2023-03-22 11:53:47 Outpatient SFA SFA [id number] Topher Michel 2023-02-20 16:37:03 2023-02-20 16:37:03 Outpatient SFA SFA [id number] Topher Michel 2023-02-15 15:14:01 2023-02-15 15:14:01 Outpatient SFA SFA [id number] Topher Michel 2023-01-16 08:47:40 2023-01-16 08:47:40 Outpatient SFA SFA [id number] Topher Michel 2022-08-14 11:15:06 2022-08-14 11:15:06 Outpatient SFA SFA [id number] Topher Michel 2022-01-13 18:49:00 2022-01-13 21:18:00 [place] [facility] [id number] [facility] 2022-01-13 18:49:00 2022-01-13 21:18:00 Emergency X PITER DEEJOE [facility] ERT [id number] [facility] Results Test Description Test Time Test Comments Results Result Co mments Source HEPATITIS PANEL, [id number] 01:43:43* Test Item Value Reference Range Interpretation Comme nts HEPATITIS A IgM (test code = 15331) NON-REACTIVE NON-REACTIVE HEPATITIS B CORE IgM (test code = 4644) NON-REACTIVE NON-REACTIVE HEPATITIS B SURF AG (test code = 2739) NON-REACTIVE NON-REACTIVE HEPATITIS C ANTIBODY (test code = 4675) NON-REACTIVE NON-REACTIVE INTERPRETATION HEPATITIS A: (test code = 2552) (NOTE) Hepatitis A serology shows no evidence of acute hepatitis A. INTERPRETATION HEPATITIS B: (test code = 82864) (NOTE) Hepatitis B serology shows no evidence of acute hepatitis B andno indication of exposure to hepatitis B virus in the previous raegan eight months. INTERPRETATION HEPATITIS C: (test code = 82089) (NOTE) Hepatitis C serology shows no evidence of exposure to hepatitisC virus at this time. It can take up to 12 months after exposure tothe hepatitis C virus for antibodies to become detectable in the blood in certain patients. RPR REFLEX TO T. PALLIDUM - [id number] 00:18:34* Test Item Value Reference Range Interpretation Comme nts RPR (test code = 23105) NON-REACTIVE NON-REACTIVE RPR TITER (test code = 3500) NOT INDIC. TITER NOT INDIC. CT/NG, NAAT, [id number] 15:10:48* Test Item Value Reference Range Interpretation Comme nts CHLAMYDIA, NAAT, URINE (test code = 38136) NEGATIVE NEGATIVE Testing is perfo rmed with Mia TATA 6800/8800 systems usingreal-time polymerase chain reaction (PCR) method. A negative result does not exclude low level infection, specimensampling error, or collection error. GONORRHEA, NAAT, URINE (test code = 95770) NEGATIVE NEGATIVE Testing is perfo rmed with Mia TATA 6800/8800 systems usingreal-time polymerase chain reaction (PCR) method. A negative result does not exclude low level infection, specimensampling error, or collection error. UNLESS OTHERWISE INDICATED, ALL TESTING PERFORMED AT [facility] [address] [place] [address] BALLET TEACHER: SUSAN YANEZ M.D. CLIA NUMBER [id number] [facility] [place]. [id number] HCG, [id number] 09:23:07* Test Item Value Reference Range Interpretation Comme nts HCG, QUANTITATIVE (test code = 2506) 44 MIU/ML SEE BELOW EXPEC JAG VALUES FOR HCG GST.AGE UNITS RANGE GST. [...] . . . . . . MIU/ML [id number] FEMALES . . . . . . . . . . . . MIU/ML <=7 UNLESS OTHERWISE INDICATED, ALL TESTING PERFORMED AT [facility] [address] [place] [address] BALLET TEACHER: SUSAN YANEZ M.D. CLIA NUMBER [id number] [facility] [place]. [id number] NIPS W/ [id number] 22:50:20* Test Item Value Reference Range Interpretation Comments FINAL NIPS RESULT (test code = 26121) Low Risk SEX (test code = 29048) Female FRACTION (EST.) (test code = 68985) 6 % TRISOMY 21 (T21) (test code = 39512) Low probability T21 PRE-TEST PROB (test code = 97882) 1,126 T21 POST-TEST PROB (test code = 53934) <1/20,000 TRISOMY 18 (T18) (test code = 546183) Low probability T18 PRE-TEST PROB (test code = 573087) 1/2,500 T18 POST-TEST PROB (test code = 167237) <1/20,000 TRISOMY 13 (T13) (test code = 404406) Low probability T13 PRE-TEST PROB (test code = 945525) 10/20,927 T13 POST-TEST PROB (test code = 748859) <1/20,000 INTERPRETATION (test code = 761375) See Note Testing of noemiu lindsey cell-free DNA from maternalblood shows no evidence of numerical abnormalitiesof the tested chromosomes. IMPORTANT INFORMATION (test code = 793035) See Note Patients with a pre-test probability higher thanthe general population will have a higher residualrisk, even after negative NIPS results, than thosewith a lower pre-test probability. The pre-testprobability or risk of an abnormality is estimatedfrom maternal age but it may be influenced bycertain maternal or -related factors asdetailed in Test Performance Characteristics below.False negative NIPS results are rare but may occurdue to biological or analytical factors. RECOMMENDATION (test code = 099531) See Note A negative resul t does not eliminate the risk forother chromosomal abnormalities or birthdefects that are not evaluated in this screeningtest. Clinical correlation of test results isrecommended. GESTATION AT JOHANNE (W) (test code = 879647) 14 weeks GESTATION AT JOHANNE (D) (test code = 436026) 3 days DELIVERY DATE (EST.) (test code = 461763) 03/02/2024 PROVIDED HISTORY INFORMATION (test code = 989352) NUMBER OF FETUSES (test code = 810400) Romero MATERNAL WEIGHT (test code = 959682) 144 LBS DATING METHOD (test code = 759427) NORTH LMP OR NORTH DATE (test code = 111135) 05/27/2023 IVF (test code = 820497) NO PATIENT CONSENT (test code = 130003) YES SEX (test code = 965636) See Note sex determ ination is based on detection of Ychromosome in DNA fragments. The absence of Ychromosome in this sample indicates a very highlikelihood that the fetus is female sex. Sexassignment may not be perfectly accurate due topregnancy-related issues such as demise amongother possibilities. sex determination doesnot exclude Sex Chromosome Aneuploidy (SCA),including Monosomy X, unless that testing isspecifically ordered. Genetic Counseling:The submitting laboratory can facilitate consultation with anindependent, qualified genetic counselor. Educational materials andinformation regarding genetic counseling services are available [email or web address] Self Representation Document Preparation. Method:[facility]'s Non-Invasive Screening (NIPS)test is intended for early screening of aneuploidies (bothmonosomy and trisomy) in chromosomes 21, 18, 13, X and Y. The testutilizes [facility]'s Sigmatix NIPT Solution v2 and whole-genomesequencing of circulating fragments of cell-free DNA (cfDNA) obtainedfrom maternal plasma at 10 weeks gestation or later. The fetalcomponent of cfDNA is derived from placental tissue. Paired-endsequencing data of cfDNA are aligned with a reference genome (HG19)and analyzed by the Sigmatix NIPT Solution v2 algorithm to determinefetal fraction (FF) and numerical abnormalities in chromosomes 21,18, 13, X and Y. FF is used as a quality assurance lead parameter for NIPSanalysis and interpretation. This test was developed and itsperformance characteristics determined by [facility](SRL). It has not been cleared or approved by the U.S. Food and DrugAdministration (FDA). The FDA has determined that such clearance orapproval is not necessary. This test is used for clinical purposesand should not be regarded as investigational or for research. [facility] isqualified to perform high complexity testing under the ClinicalLaboratory Improvement Amendments (CLIA). Test Performance Characteristics:Romero :Trisomy 21 (N=130): Sensitivity >99%, Specificity >99.9%Trisomy 18 (N=41): Sensitivity >99%, Specificity >99.9%Trisomy 13 (N=26): Sensitivity >99%, Specificity >99.9%Monosomy X (N=21): Sensitivity 90.5%, Specificity >99%Trisomy X (N=17): Sensitivity >99%, Specificity >99%XXY (N=23): Sensitivity >99%, Specificity >99%XYY (N=12): Sensitivity 91.7%, Specificity >99% Sensitivity and specificity for singletons for T21, T18 and T13 andsex chromosome aneuploidies (SCA) are derived from a study of 2,235pregnancies using the VeriSeq NIPT v2 test. The number of affectedpregnancies are indicated in parentheses in the chart above. Thespecificity estimate for SCA is based on identification of a definedSCA in all 73 affected pregnancies; the final cytogenetic results mayindicate a different SCA. Concordance between predicted sex and sexat delivery was >99.9%. Twin :Trisomy 21: Sensitivity 96.4%, Specificity 99.9%Trisomy 18: Sensitivity 95.7%, Specificity 99.9%Trisomy 13: Sensitivity 93.6%, Specificity 99.9% Test performance characteristics for T21, T18 and T13 in twinpregnancies are based on in silico simulation models due to the lowprevalence of trisomy 21, 18, and 13 in twin pregnancies. Sensitivityand specificity information is not available for Monosomy X or SCAin twin pregnancies. Pre- and Post-Test Probability:The pre-test probability of a trisomy in romero and twinpregnancies, and SCA in romero pregnancies is based on literatureof prevalence or risk. The post-test probability is calculated fromthe prevalence of an abnormality and the test performancecharacteristic s or is derived from published medical literature.Refer to [email or web address]/erd for additionalinformation on pre- and post-test probability. Depending upon anumber of maternal or -related risk factors, an individualpregnancy may have higher or lower pre-test probability which cansignificantly affect the post-test risk estimation. Personal/familyhistory, sonographic and other -related screening findingsare not utilized in the risk estimation. Genetic or medicalcounseling may be useful to revise risk estimates. Test Limitations:[facility]'s NIPS test is a screening test, thereforefalse negative or false positive results can occur. Maternalconditions including but not limited to blood transfusion, organtransplantation, bone marrow transplant, certain surgical procedures,stem cell therapy, malignancy or genetic mosaicism can affect testaccuracy. -related conditions such as or placentalgenetic mosaicism, demise or nonviable twin can also affecttest accuracy. The test assesses numerical abnormalities of the givenchromosomes which does not eliminate the possibility that thepregnancy has numerical abnormalities of other chromosomes, balancedtranslocations or sub-chromosomal abnormalities (point mutations orsmall deletions). Test results should always be correlated andinterpreted in the context of clinical findings, family/patienthistory and other test results. Pregnancies affected by high riskresults may benefit from genetic counseling and should undergodefinitive confirmation testing. Conclusions about conditionand management decisions should not be based solely on theresults of this screening test. This NIPS test does not detect allgenetic, non-genetic or structural defects, includingopen neural tube defects for which biochemical or sonographicscreening options are available. TESTING PERFORMED AT [facility] [address] [place] [address], [address] [address] CLIA NO: [id number] NO URINE PROVIDED:2023-09-06 06:04:57* Test Item Value Reference Range Interpretation Comme nts NO URINE PROVIDED: (test code = 986) (NOTE) NOTE: Patient urine was not provided. Urine testing will be noted out if no urine specimen is received in an appropriate period of time. UNLESS OTHERWISE INDICATED, ALL TESTING PERFORMED AT [facility] [address] [place] [address] BALLET TEACHER: SUSAN YANEZ M.D. CLIA NUMBER [id number] [place]. [id number] CULTURE, [id number] 10:47:23SPECIMEN NUMBER: [id number] CULTURE, URINE SPECIMEN NUMBER: [id number] SPECIMEN COMMENT: URINE SOURCE: URINE REPORT STATUS: FINAL FINAL REPORT: 08/19/2023 10-50,000 CFU/ML MIXED MICROBIAL POPULATION FL ESENT, NO PREDOMINATING ORGANISMS;PROBABLE CONTAMINANTS. UNLESS OTHERWISE INDICATED, ALL TESTING PERFORMED AT [facility] [address] [place] [address] BALLET TEACHER:SUSAN YANEZ M.D. CLIA NUMBER [id number] [place] [id number] [id number] 11:52:56* Test Item Value Reference Range Interpretation Comme nts HEMOGLOBIN A1 (test code = 2575) 97.6 % 95.0-98.5 HEMOGLOBIN A2 (test code = 2576) 2.4 % 1.6-3.7 HEMOGLOBIN F () (test code = 2722) 0.0 % 0.0-2.0 HEMOGLOBIN S (test code = 2724) NONE % NONE DETECTED HEMOGLOBIN C (test code = 2726) NONE % NONE DETECTED OTHER HEMOGLOBIN VARIANT (test code = 66971) NONE DETEC % NONE DETECTED PATHOLOGIST'S INTERPRETATION [...] OFBETA-THALASSEMIA. DEDE BACA M.D. PAP TEST, THINPREP, [id number] 16:57:26* Test Item Value Reference Range Interpretation Comme nts SOURCE: (test code = 8001) Cervical/Endoce rvical SLIDES: (test code = 8011) 2 LMP: (test code = 8021) 05/27/2023 SPECIMEN ADEQUACY: (test code = 82775) (NOTE) Satisfactory for evaluation. Endocervical cells/transformation zone component present. INTERPRETATION: (test code = 40367) NILM/NO EPITH. ABNORMALITY;SEE BELOW --- - NEGATIVE FOR INTRAEPITHELIAL LESION OR MALIGNANCY (NILM) ---- OTHER COMMENTS: (test code = 8081) (NOTE) Shift in chrystal suggestive of bacterial vaginosis. Glacial acetic acid added due to blood/mucus in specimen. BELT BUILDER : (test code = 8101) Jennifer Martell CT(ASCP) QC TECHNOLOGIST: (test code = 8111) Johnnie VergaraSCT(ASCP)I LOCATION: (test code = 20652) (NOTE) Specimens proces sed and interpreted at [facility], [address] [place] [address], , CLIA: [id number] CPT: (test code = 8140) (NOTE) [address] UNLESS OTH ERWISE INDICATED, COMPUTER AIDED AND BELT BUILDER SCREENING PERFORMED. The Pap test is a screening test with an inherent, but low probability of error. Your patient should be reminded to consult you immediately if she experiences any suspicious signs or symptoms, regardless of her Pap test result. An alternate report format containing images or consolidated prior Pap history is available as applicable. VARICELLA ZOSTER [id number] 13:20:46* Test Item Value Reference Range Interpretation Comme nts VARICELLA ZOSTER IgG (test code = 93079) 1182 INDEX SEE BELOW INTERPRETATION V ZV [...] . . . . INDEX >=165 HCG, [id number] 06:33:57* Test Item Value Reference Range Interpretation Comme nts HCG, QUANTITATIVE (test code = 2506) 62774 MIU/ML SEE BELOW EXPECTED VALUES FOR HCG [...] . . . . . . MIU/ML [id number] FEMALES . . . . . . . . . . . . MIU/ML <=7 DRUG ABUSE SCREEN 10 REFLEX [id number] 05:54:57* Test Item Value Reference Range Interpretation Comme nts AMPHETAMINES (test code = 3201) NEGATIVE NEGATIVE BARBITURATES (test code = 3202) NEGATIVE NEGATIVE BENZODIAZEPINES (test code = 3203) NEGATIVE NEGATIVE CANNABINOIDS (test code = 3204) NEGATIVE NEGATIVE COCAINE METABOLITE (test code = 3205) NEGATIVE NEGATIVE OPIATES (test code = 3209) NEGATIVE NEGATIVE OXYCODONE (test code = 91328) NEGATIVE NEGATIVE PHENCYCLIDINE (test code = 3210) NEGATIVE NEGATIVE METHADONE (test code = 3207) NEGATIVE NEGATIVE BUPRENORPHINE (test code = 14337) NEGATIVE NEGATIVE SOURCE (test code = 312109) URINE SEE BELOW FO R THRESHOLDS AND [...] or contact the laboratory within specimen stability tofordyess afb for confirmatory testing. This test is specified for medicalpurposes only. It is not valid for forensic use. UNLESS OTHERWISE INDICATED, ALL TESTING PERFORMED AT [facility] [address] [facility] [place] [address] BALLET TEACHER: SUSAN YANEZ M.D. [place] NUMBER [id number] [facility] [place]. [id number] OBSTETRIC PANEL + [id number] 05:53:01* Test Item Value Reference Range Interpretation [...] 0.00-0.10 ABS NUCLEATED RBCS (test code = 73872) 0.00 K/UL 0.00-0.11 BLOOD TYPE AND RH [...] BELOW RUBELLA IgG INTERP (test code = 44013) REACTIVE REACTIVE INTERPRETATI ON UNITS RANGE NON-REACTIVE/NON-IMM UNE IU/ML <10 REACTIVE/IMMUNE IU/ML >=10 HEPATITIS B SURF AG (test code = 2739) NON-REACTIVE NON-REACTIVE RPR (test code = 56366) NON-REACTIVE NON-REACTIVE RPR TITER (test code = 3500) NOT INDIC. TITER NOT INDIC. HIV 1/2 4TH GEN, RFLX CONF (test code = 3514) NON-REACTIVE NON-REACTIVE HEPATITIS C [id number] 05:53:01* Test Item Value Reference Range Interpretation Comme nts HEPATITIS C ANTIBODY (test c ode = 4675) NON-REACTIVE NON-REACTIVE [id number] 03:48:39* Test Item Value Reference Range Interpretation Comme nts RPR RESULT (test code = 3501) NON-REACTIVE NON-REACTIVE RPR TITER (test code = 3500) NOT INDIC. TITER NOT INDIC. HPV HIGH RISK WITH GENOTYPE, [id number] 15:53:01* Test Item Value Reference Range Interpretation Comme nts HPV HIGH RISK INTERP (test code = 42114) POSITIVE NEGATIVE A HPV 16 (test code = 46862) NEGATIVE HPV 18 (test code = 15255) NEGATIVE HPV, HR, OTHER GENOTYPES (test code = 87745) POSITIVE A Testing methodol ogy is real-time [...] TESTING PERFORMED AT [facility] [address] [place] [address] BALLET TEACHER: SUSAN YANEZ M.D. CLIA NUMBER [id number] [place] [id number] CULTURE, [id number] 12:58:34SPECIMEN NUMBER: [id number] CULTURE, URINE SPECIMEN NUMBER: [id number] SPECIMEN COMMENT: URINE SOURCE: URINE REPORT STATUS: FINAL ISOLATE NUMBER 1: ORGANISM: 07/30/2023 >100,000 CFU/ML GRAM NEGATIVE BACILLI IDENTIFICATION: 07/31/2023 ESCHERICHIA COLI E. COLI AMOXICILLIN/CA SENSITIVE <=8/4AMPICILLIN RESISTANT >16CEFAZOLIN SENSITIVE <=2CEFTRIAXONE SENSITIVE <=1CIPROFLOXACIN SENSITIVE <=1LEVOFLOXACIN SENSITIVE <=2NITROFURANTOIN SENSITIVE <=32PIP/TAZOBAC SENSITIVE <=16TETRACYCLINE SENSITIVE <=4TOBRAMYCIN SENSITIVE <=4TRIMETH/SULFA SENSITIVE <=2/38 NOTE: NUMBERS DISPLAYED REPRESENT MINIMUM INHIBITORY CONCENTRATION (ALMITA) WHICH IS EXPRESSED IN MCG/ML.CT/NG, NAAT, [id number] 12:21:07* Test Item Value Reference Range Interpretation Comme nts CHLAMYDIA, NAAT, THINPREP (test code = 08834) POSITIVE NEGATIVE A Testing is perfo rmed with the Mia Tata 6800/8800 systems usingreal-time Polymerase Chain Reaction (PCR) method. GONORRHEA, NAAT, THINPREP (test code = 65101) NEGATIVE NEGATIVE A negative resul t does not exclude low level infection, specimensampling error, or collection error. Testing is performed with the Mia Tata 6800/8800 systems usingreal-time Polymerase Chain Reaction (PCR) method. VAGINAL PATHOGENS DNA [id number] 10:31:23* Test Item Value Reference Range Interpretation Comme nts BROOKE SPECIES (test code = 52234) NEGATIVE NEGATIVE G. VAGINALIS (test code = ) POSITIVE NEGATIVE A T. VAGINALIS (test code = ) NEGATIVE NEGATIVE Note: The BD Aff irm VPIII Microbial Identification Testis a DNA probe test intended for use in the detectionand identification of Brooke species, Gardnerellavaginalis and Trichomonas vaginalis nucleic acid. UNLESS OTHERWISE INDICATED, ALL TESTING PERFORMED AT [facility] [address] [place] [id number] BALLET TEACHER: SUSAN YANEZ M.D. CLIA NUMBER [id number] [facility] [place]. [id number]
[2023-12-04 18:09] LABS: Specific Gravity 1.008 (1.005-1.030)
[2023-12-04 18:13] LABS: Absolute Lymphocytes (CBC) 2.7 K/uL (0.7-4.9); Lymphocytes % 29.9 % (15.3-44.8); MCV 65.7 fL (80-100); MPV 7.9 fL (7.6-11.3); Platelets 486 thou/uL (152-406); RBC Red Blood Cell Count 5.03 M/uL (3.86-4.86)
[2023-12-04 18:15] LABS: Blood Morphology Comment NOTED (NOT SEEN); Hypochromasia 1+; Platelet Estimate INCR; White Blood Cell Scan OK (OK)
[2023-12-04 18:16] LABS: Protime INR 1.11
[2023-12-04 18:17] LABS: Specific Gravity 1.008 (1.005-1.030); Urine Bilirubin NEGATIVE (Negative); Urine Blood Negative (Negative); Urine Clarity Turbid (Clear); Urine Color Colorless (Yellow); Urine Glucose NEGATIVE (Negative)
[2023-12-04 18:18] LABS: Urine Bacteria None Seen /HPF (<20); Urine Protein NEGATIVE (Negative); Urine RBC <5 /HPF (None Seen); Urine Urobilinogen Normal (Normal); Urine pH 6.5 (5.0-7.0)
[2023-12-04 18:32] LABS: ALT/SGPT 18 U/L (13-56); AST/SGOT 26 U/L (15-37); Albumin 4.3 g/dL (3.4-5.0); Alkaline Phosphatase 79 U/L (45-117); BUN Blood Urea Nitrogen 12 mg/dL (7-18); Bicarbonate 28 mEq/L (21-32); Bilirubin Total 0.3 mg/dL (0.2-1.0); Glomerular Filtration Rate 104 ml/min (=/>90); Glucose Level 96 mg/dL (74-106); Magnesium 2.1 mg/dL (1.6-2.4); Potassium 3.6 mEq/L (3.5-5.1); Protein, Total 8.7 g/dL (6.4-8.2); Sodium Level 140 mEq/L (136-145)
[2023-12-04 18:46] LABS: Bilirubin Direct < 0.1 mg/dL (0-0.2)
[2023-12-04 18:47] LABS: Bilirubin Indirect, Calculated ND mg/dL (0.2-0.8); Troponin High Sensitivity < 3.0 pg/mL (<58.9)
--- NOTE | 2023-12-04 19:39 | ER ---
Nurse's Notes [facility] Name: Roland Blake Age: 22 yrs Sex: Female : 2000 Arrival Date: 12/04/2023 Time: 17:05 Bed 12 Private MD: Diagnosis: Dizziness and giddiness Presentation: 12/04 17:13 Chief complaint: Patient states: DIZZINESS STARTED ON 11/21 WHEN STARTED MEDICATION FOR db HERPES AND BV. TODAY WITH NOSE RUNNING. BURNING WITH URINATION. Coronavirus screen: Client denies travel out of the [place] in the last 14 days. At this time, the client does not indicate any symptoms associated with coronavirus-19. Ebola Screen: Patient negative for fever greater than or equal to 101.5 degrees Fahrenheit, and additional compatible Ebola Virus Disease symptoms Patient denies exposure to infectious person. Patient denies travel to an Ebola-affected area in the 21 days before illness onset. No symptoms or risks identified at this time. Initial Sepsis Screen: Does the patient meet any 2 criteria? No. Patient's initial sepsis screen is negative. Does the patient have a suspected source of infection? No. Patient's initial sepsis screen is negative. Risk Assessment: Do you want to hurt yourself or someone else? Patient reports no desire to harm self or others. Onset of symptoms was December 04, 2023. 17:13 Method Of Arrival: Ambulatory db 17:13 Acuity: REBECCA 3 db Triage Assessment: 17:13 General: Appears in no apparent distress. comfortable, Behavior is calm, cooperative. db Pain:. Neuro: Level of Consciousness is awake, alert, obeys commands, Oriented to person, place, time, situation, Reports dizziness. Respiratory: Airway is patent Respiratory effort is even, unlabored, Respiratory pattern is regular, symmetrical. 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 - Social history:: Smoking status: Patient reports the use of cigarette tobacco products, denies chronic smoking, but will smoke occasionally. Screenin:06 [facility] ED Fall Risk Assessment (Adult) History of falling in the last 3 months, ph including since admission No falls in past 3 months (0 pts) Score/Fall Risk Level 0 - 2 = Low Risk Oriented to surroundings, Maintained a safe environment, Provided non-skid footwear, Hourly rounding (assess needs \T\ fall precautionary measures) done. Abuse screen: Denies threats or abuse. Denies injuries from another. Nutritional screening: No deficits noted. Tuberculosis screening: No symptoms or risk factors identified. Assessment: 18:30 General: Appears in no apparent distress. comfortable, Behavior is calm, cooperative. ph Pain: Denies pain. Neuro: Level of Consciousness is awake, alert, obeys commands, Oriented to person, place, time, situation, Reports dizziness. Cardiovascular: Capillary refill < 3 seconds in bilateral fingers Patient's skin is warm and dry. Respiratory: Airway is patent Respiratory effort is even, unlabored, Respiratory pattern is regular, symmetrical. EENT: Reports nasal discharge that is watery. Derm: Skin is pink, warm \T\ dry. 19:37 Reassessment: Patient appears in no apparent distress at this time. No changes from km8 previously documented assessment. Patient and/or family updated on plan of care and expected duration. Pain level reassessed. Patient is alert, oriented x 3, equal unlabored respirations, skin warm/dry/pink. Vital Signs: 17:13 BP 125 / 53; Pulse 74; Resp 18; Temp 98.6(TE); Pulse Ox 100% ; Weight 62.6 kg; Height 5 db ft. 6 in. ; 19:06 BP 118 / 75; Pulse 72; Resp 18; Pulse Ox 98% on R/A; ph 19:31 BP 139 / 74 LA Supine; Pulse 67; km8 19:33 BP 126 / 84 LA Sitting; Pulse 69; km8 19:35 BP 127 / 85 LA Standing; Pulse 74; km8 17:13 Body Mass Index 22.27 (62.60 kg, 167.64 cm) db ED Course: 17:10 Patient arrived in ED. im 17:10 Josephine Humphrey FNP-C is PHCP. kb 17:10 Lance Doyle DO is Attending Physician. kb 17:13 Arm band placed on Patient placed in waiting room. db 17:15 Triage completed. db 17:54 Initial lab(s) drawn, by ut, sent to lab. Inserted saline lock: 22 gauge in right ap3 antecubital area, using aseptic technique. Blood collected. 17:54 Urinalysis w/ reflexes Sent. ap3 17:54 Troponin High Sensitivity Sent. ap3 17:54 Ptt, Activated Sent. ap3 17:54 Protime (+inr) Sent. ap3 17:55 Test, Urine Sent. ap3 17:55 Magnesium Sent. ap3 17:55 Hepatic Function Sent. ap3 17:55 CBC with Diff Sent. ap3 17:55 Basic Metabolic Panel Sent. ap3 18:42 Karime Delong, RN is Primary Nurse. ph 19:05 Patient has correct armband on for positive identification. Bed in low position. Call ph light in reach. Side rails up X2. Pulse ox on. NIBP on. 19:58 Provided Education on: d/c teaching. km8 19:58 No provider procedures requiring assistance completed. IV discontinued, intact, km8 bleeding controlled, No redness/swelling at site. Pressure dressing applied. Administered Medications: No medications were administered Medication: 19:06 VIS not applicable for this client. ph Outcome: 19:39 Discharge ordered by MD. kb 19:59 Discharged to home ambulatory, with significant other, km8 19:59 Condition: good 19:59 Discharge instructions given to patient, significant other, Instructed on discharge instructions, follow up and referral plans. Demonstrated understanding of instructions, follow-up care, 20:02 Patient left the ED. km8 Signatures: Josephine Humphrey, ISABEL-C GYMNASTICS COACH OR INSTRUCTOR-Karime Velásquez, RN GILBERTO Anamika Smith RN RN ap3 Nikki Mcgrath, GILBERTO RN db Moira Owens Katie, GILBERTO RN km8 Corrections: (The following items were deleted from the chart) 17:16 17:13 BP 125 / 53; Pulse 74bpm; Resp 18bpm; Pulse Ox 100%; Temp 98.6F Temporal; db db
--- NOTE | 2023-12-04 19:39 | EDPHYS ---
Physician Documentation [facility] Name: Roland Blake Age: 22 yrs Sex: Female : 2000 Arrival Date: 12/04/2023 Time: 17:05 Bed 12 Private MD: ED Physician Lance Doyle HPI: 12/04 19:40 This 22 yrs old Female presents to ER via Ambulatory with complaints of kb Dizziness, Flu Symptoms. 19:40 Patient is a 22-year-old female who presents for dizziness for 2 weeks that started kb when she started taking medication for oral herpes MPV. Also reports runny nose and urination for 2 days. Denies fever, cough, congestion, nausea, vomiting, diarrhea, abdominal pain. 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 - Social history:: Smoking status: Patient reports the use of cigarette tobacco products, denies chronic smoking, but will smoke occasionally. ROS: 19:40 Constitutional: Negative for fever, chills, and weight loss, kb 19:40 ENT: Positive for rhinorrhea, 19:40 : Positive for burning with urination, 19:40 Neuro: Positive for dizziness, 19:40 All other systems are negative, Exam: 19:40 Constitutional: This is a well developed, well nourished patient who is awake, alert, kb and in no acute distress. Head/Face: Normocephalic, atraumatic. ENT: Moist Mucous membranes Cardiovascular: Regular rate Respiratory: Respirations even and unlabored. No increased work of breathing. Talking in full sentences Abdomen/GI: Soft, non-tender. No distention Skin: Warm, dry with normal turgor. Normal color. MS/ Extremity: Pulses equal, no cyanosis. Neurovascular intact. Full, normal range of motion. Neuro: Awake and alert, GCS 15, oriented to person, place, time, and situation. Moves all extremities. Normal gait. Vital Signs: 17:13 BP 125 / 53; Pulse 74; Resp 18; Temp 98.6(TE); Pulse Ox 100% ; Weight 62.6 kg; Height 5 db ft. 6 in. ; 19:06 BP 118 / 75; Pulse 72; Resp 18; Pulse Ox 98% on R/A; ph 19:31 BP 139 / 74 LA Supine; Pulse 67; km8 19:33 BP 126 / 84 LA Sitting; Pulse 69; km8 19:35 BP 127 / 85 LA Standing; Pulse 74; km8 17:13 Body Mass Index 22.27 (62.60 kg, 167.64 cm) db MDM: 17:11 Patient medically screened. kb 19:40 Differential diagnosis: cardiac arrhythmia, hypovolemia, idiopathic dizziness, kb near-syncope, vertigo. Data reviewed: vital signs, nurses notes. Test considered but Not performed: CT: CT head considered but patient has no neurologic deficits. Counseling: I had a detailed discussion with the patient and/or guardian regarding the historical points, exam findings, and any diagnostic results supporting the discharge/admit diagnosis, lab results, the need for outpatient follow up, a family practitioner, to return to the emergency department if symptoms worsen or persist or if there are any questions or concerns that arise at home. 12/04 17:17 Order name: Basic Metabolic Panel; Complete Time: 18:48 kb 12/04 17:17 Order name: CBC with Diff; Complete Time: 18:16 kb 12/04 17:17 Order name: Hepatic Function; Complete Time: 18:48 kb 12/04 17:17 Order name: Magnesium; Complete Time: 18:48 kb 12/04 17:17 Order name: Test, Urine; Complete Time: 18:21 kb 12/04 17:17 Order name: Protime (+inr); Complete Time: 18:17 kb 12/04 17:17 Order name: Ptt, Activated; Complete Time: 18:17 kb 12/04 17:17 Order name: Troponin High Sensitivity; Complete Time: 18:48 kb 12/04 17:17 Order name: Urinalysis w/ reflexes; Complete Time: 18:21 kb 12/04 18:16 Order name: CBC Smear Scan; Complete Time: 18:16 EDMS 12/04 17:17 Order name: EKG; Complete Time: 17:17 kb 12/04 17:17 Order name: Cardiac monitoring; Complete Time: 18:42 kb 12/04 17:17 Order name: EKG - Nurse/Tech; Complete Time: 19:37 kb 12/04 17:17 Order name: IV Saline Lock; Complete Time: 17:54 kb 12/04 17:17 Order name: Labs collected and sent; Complete Time: 17:54 kb 12/04 17:17 Order name: NPO; Complete Time: 17:55 kb 12/04 17:17 Order name: O2 Per Protocol; Complete Time: 18:42 kb 12/04 17:17 Order name: O2 Sat Monitoring; Complete Time: 18:42 kb 12/04 17:17 Order name: Orthostatics; Complete Time: 19:37 kb Administered Medications: No medications were administered Disposition Summary: 12/04/23 19:39 Discharge Ordered Notes: Location: Home kb Condition: Stable kb Diagnosis - Dizziness and giddiness kb Followup: kb - With: Emergency Department - When: As needed - Reason: Worsening of condition Followup: kb - With: Private Physician - When: 2 - 3 days - Reason: Recheck today's complaints, Continuance of care, Re-evaluation by your physician Discharge Instructions: - Discharge Summary Sheet kb - Dizziness, [id number] kb Forms: - Medication Reconciliation Form kb - Thank You Letter kb - Antibiotic Education kb - Prescription Opioid Use kb - Patient Portal Instructions kb - Leadership Thank You Letter kb Signatures: Dispatcher [employer] Josephine Warren, DRY CHAIN WORKER-C DRY CHAIN WORKER-Nikki Leblanc, RN RN db
[2023-12-04 20:47] VITALS: BP 127/85; TEMP 98.6; O2SAT 98
== END ==
LOC: ER 17:05
DX: R42 Dizziness and giddiness (principal); F32.A Depression, unspecified; F17.210 Nicotine dependence, cigarettes, uncomplicated
CPT/HCPCS: 36415; 80048; 80076; 81001; 81025; 83735; 84484; 85025; 85610; 85730; 93005

== ENCOUNTER 2024-10-21 22:32 | Emergency (ER) | payer OTHER ==
--- OUTSIDE RECORDS SUMMARY | 2024-10-21 22:39 | XMS REPORT | Continuity of Care Document ---
Author Name Unknown Address [address] [facility] [address] [place] [address] [facility] Address [address] [facility] [address] [place] [address] Care Team Providers Care Secretary Office Clerk Name Role Phone Arabella Zurita Primary Care Physicia n ARABELLA ARCE Attending Clinician Unavail able Arabella Zurita Attending Clinician + NICHOLE HANSON Attending Clinician Unavailable NICHOLE HANSON Attending Clinician Unavailable Nichole Willard Attending Clinician +[phone] Mauricio Andrade MD K.HTor Attending Clinician + [phone] MAURICIO ANDRADE K.HTor Attending Clinician UnavailMAHESH León Attending Clinician Unavailable MAHESH HAGAN Attending Clinician Unavailable Mahesh Hagan MD Attending Clinician [phone] Irvin Encarnacion Attending Clinician + [phone] IRVIN DEE Attending Clinician UnavailNICHOLE Chua Admitting Clinician Unavailable Payers Payer Name Policy Type Policy Number Effective Date Expirati on Date Source COMMERCIAL S [id number] [facility] [id number] 2024 00:00:00 [facility] [id number] 00:00:00 Problems Condition Name Condition Details Condition Category Status Onset Date Resolution Date Last Treatment Date Treating Clinician Comments Source Supervisio n of high-risk Supervisio n of high-risk Disease Active 2023-10 00:00: 00 [facility] History of miscarriag e History of miscarriag e Disease Active 2023-10 00:00: 00 [facility] with history of with history of Disease Active 2023-10 00:00: 00 [facility] Nausea and vomiting in Nausea and vomiting in Disease Active 2023-10 00:00: 00 [facility] No known active problems No known active problems Disease [facility] Allergies, Adverse Reactions, Alerts Allergy Name Allergy Type Status Severity Reaction(s) Onset Date Inactive Date Treating Clinician Comments Source [place] - Intraven ous Propensi ty to adverse reaction to drug Active 03-31 00:00: 00 Topher Michel NO KNOWN ALLERGIE S Drug Class Active [facility] Social History Social Habit Start Date Stop Date Quantity Comments Source ASSERTION 2024-09-07 00:00:00 [facility] Exposure to SARS-CoV-2 (event) Not sure [facility] Alcoholic beverage intake 2024-10-21 00:00:00 2024-10-21 00:00:00 Ex-drinker (finding) [facility] Tobacco use and exposure 2024-07-02 00:00:00 2024-07-02 00:00:00 Smokeless tobacco non-user [facility] History of Social function 2024-07-02 00:00:00 2024-07-02 00:00:00 [facility] Sex assigned at 2001 00:00:00 2001 00:00:00 [facility] Smoking Status Start Date Stop Date Source Tobacco smoking consumption unknown [facility] Never smoked tobacco [facility] Medications Ordered Medication Name Filled Medication Name Start Date Stop Date Current Medication? Ordering Clinician Indication Dosage Frequency Signature (SIG) Comments Components Source albuterol sulfate HFA 90 mcg/actuati on aerosol inhaler 2023-10 00:00: 00 Yes 12mcg/a ctuatio n Topher Michel cetirizine 10 mg capsule 2023-10 00:00: 00 Yes 1mg Topher Michel sodium chloride (NS) injection 5 mL 2023-10 05:33: 25 Yes [id number] 5mL 5 mL, Intravenou s, PRN, Starting on 09/27/24 at 2333, Until Discontinu ed, Routine, IV line flushing [facility] proMETHazin e 25 mg tablet 2023-10 00:00: 00 Yes [id number] 25mg Take 1 tablet by mouth every 6 (six) hours as needed for Nausea and Vomiting (N/V). [facility] PNV 67-iron ps-folate no.1-dha (VITAFOL ULTRA) 29 mg iron- 1 mg-200 mg Cap 2023-10 00:00: 00 Yes [id number] 1{each} Take 1 Each by mouth in the morning. [facility] prednisone 10 mg tablet 02-27 00:00: 00 Yes 1mg Topher Michel Bromfed DM 2 mg-30 mg-10 mg/5 mL oral syrup 02-27 00:00: 00 Yes 10mg/5 mL Topher Michel fluconazole 150 mg tablet 02-17 00:00: 00 Yes mg Topher Michel metronidazo le 500 mg tablet 02-12 00:00: 00 Yes 1mg Topher Michel hydroxyzine HCl 25 mg tablet 02-06 00:00: 00 Yes 1mg Topher Michel triamcinolo ne acetonide 0.1 % topical ointment 02-06 00:00: 00 Yes 1% Topher Michel mupirocin 2 % topical ointment 02-06 00:00: 00 Yes 1% Topher Michel METRONIDAZO L 02-03 00:00: 00 Yes Topher Michel metronidazo le 500 mg tablet 02-02 00:00: 00 Yes 1mg Topher Michel fluconazole 150 mg tablet 01-21 00:00: 00 Yes 1mg Topher Michel hydroxyzine HCl 25 mg tablet 01-08 00:00: 00 Yes 1mg Topher Michel TAKE 1 TABLET TWICE DAILY UNTIL GONE. 3 00:00: 00 02-26 00:00 :00 No 500 Topher Michel METHYLPRED 00:00: 00 Yes Topher Michel FLUCONAZOLE 00:00: 00 Yes Topher Michel TAKE 2 TABLETS ON DAY 1 THEN TAKE 1 TABLET A DAY FOR 4 DAYS. 00:00: 00 02-26 00:00 :00 No 250 Topher Michel TAKE MEDICATION DISPENSED ON DOSE PACK 00:00: 00 02-26 00:00 :00 No 4 Topher Michel TAKE 1 TABLET TODAY AND REPEAT IN 3 DAYS 00:00: 00 02-26 00:00 :00 No 150 Topher Michel TAKE 1 CAPSULE BY MOUTH TWICE DAILY 12-05 00:00: 00 Yes Topher Michel TAKE 1 CAPSULE TWICE DAILY. 12-05 00:00: 00 02-26 00:00 :00 No 100 Topher Michel VALACYCLOVI R 11-21 00:00: 00 Yes Topher Michel TAKE 1 TABLET TWICE DAILY. 11-21 00:00: 00 02-26 00:00 :00 No 500 Topher Michel TAKE 1 TABLET BY MOUTH TWICE A DAY 11-13 00:00: 00 02-26 00:00 :00 No 500 Topher Pal Michel TAKE DIRECTED. 10-24 00:00: 00 02-26 00:00 :00 No Topher Pal Michel USE DIRECTED 10-23 00:00: 00 02-26 00:00 :00 No 68 Topher Michel BROM/PSE/DM SYP 2022-10 00:00: 00 Yes Topher Michel TAKE 5 ML EVERY 6 HOURS NEEDED. 2022-10 00:00: 00 02-26 00:00 :00 No [id number] Topher Michel TAKE 1 TABLET DAILY. 2022-10 00:00: 00 02-26 00:00 :00 No 10 Topher Michel METOCLOPRAM 2022-10 00:00: 00 Yes Topher Michel TAKE 1 TABLET BY MOUTH 30 MINUTES BEFORE MEALS AND AT BEDTIME DIRECTED 2022-10 00:00: 00 Yes Topher Michel TAKE 1 CAPSULE BY MOUTH TWICE DAILY 2022-10 00:00: 00 Yes Topher Michel TAKE 1 CAPSULE TWICE DAILY. 2022-10 00:00: 00 02-26 00:00 :00 No 100 Topher Michel TAKE 1 TABLET 30 MINUTES BEFORE MEALS AND AT BEDTIME. 2022-10 00:00: 00 02-26 00:00 :00 No 5 Topher Michel TAKE 2 TABLETS BY MOUTH ONE DOSE 2022-10 00:00: 00 Yes Topher Michel TAKE 2 TABLETS ORALLY FOR 1 DAY 2022-10 00:00: 00 02-26 00:00 :00 No 500 Topher Michel DICLEGIS 10-10MG 2022-10 00:00: 00 Yes Topher Michel TAKE 1 TABLET BY MOUTH TWICE A DAY 2022-10 00:00: 00 02-26 00:00 :00 No 500 Topher Michel TAKE 1 CAPSULE BY MOUTH TWICE DAILY 2022-10 00:00: 00 Yes Topher Michel TAKE 1 CAPSULE TWICE DAILY. 2022-10 00:00: 00 02-26 00:00 :00 No 100 Topher Michel TAKE 1-2 TABLETS NIGHTLY FOR NAUSEA 2022-10 00:00: 00 02-26 00:00 :00 No 1010 Topher Michle TAKE 1 TABLET EVERY 8 HOURS NEEDED FOR NAUSEA AND VOMITING. 2022-10 00:00: 00 02-26 00:00 :00 No 8 Topher Michel TAKE 1 TABLET BY MOUTH ONCE DAILY 07-09 00:00: 00 Yes Topher Michel TAKE 1 TAB PO DAILY 07-09 00:00: 00 02-26 00:00 :00 No 5 Topher Michel TAKE 1 TABLET DAILY. 07-09 00:00: 00 02-26 00:00 :00 No 20 Topher Michel TAKE 1 TABLET DAILY. 05-23 00:00: 00 02-26 00:00 :00 No 20 Topher Michel TAKE 1 TAB PO DAILY 8- 00:00: 00 02-26 00:00 :00 No 5 Topher Michel 10 ML Q 4 TO 6 HOURS PRN COUGH FOR 5 DAYS 03-26 00:00: 00 02-26 00:00 :00 No [id number] Topher Michel TAKE 1 TAB PO DAILY 03-19 00:00: 00 02-26 00:00 :00 No 5 Topher Michel TAKE 1 TABLET DAILY. 03-19 00:00: 00 02-26 00:00 :00 No 20 Topher Michel TAKE 1 TABLET BY MOUTH ONCE DAILY 02-21 00:00: 00 Yes Topher Michel TAKE 1 TABLET DAILY. 02-21 00:00: 00 02-26 00:00 :00 No 20 Topher Michel TAKE 1 TAB PO DAILY 02-21 00:00: 00 02-26 00:00 :00 No 5 Topher Michel TAKE 1 TABLET TWICE DAILY WITH FOOD. 5- 00:00: 00 02-26 00:00 :00 No [id number] Topher Michel TAKE 1 TAB PO DAILY 4-04 00:00: 00 02-26 00:00 :00 No 5 Topher Michel TAKE 1 TABLET DAILY. 4-04 00:00: 00 02-26 00:00 :00 No 20 Topher Michel TAKE 1 TABLET DAILY. 3-09 00:00: 00 02-26 00:00 :00 No 20 Tophermarcelino Michel TAKE 1 TAB PO DAILY 0 3-09 00:00: 00 02-26 00:00 :00 No 5 Topher Michel TAKE 1 TABLET BY MOUTH ONCE DAILY 0 2-20 00:00: 00 Yes Topher Michel TAKE 1 TAB PO DAILY 0 2-20 00:00: 00 02-26 00:00 :00 No 5 Topher Michel TAKE 1 TAB PO DAILY 0 1- 00:00: 00 02-26 00:00 :00 No 5 Topher Michel TAKE 1 TABLET DAILY. 0 1- 00:00: 00 02-26 00:00 :00 No 20 Topher Michel TAKE 1 TABLET BY MOUTH ONCE DAILY 2022-0 1-11 00:00: 00 Yes Topher Michel TAKE 1 TABLET BY MOUTH ONCE DAILY 0 1-11 00:00: 00 Yes Topher Michel TAKE 1 TAB PO DAILY 0 1-04 00:00: 00 02-26 00:00 :00 No 5 Topher Michel TAKE 1 TABLET BY MOUTH ONCE DAILY 1 1-30 00:00: 00 Yes Topher Michel TAKE 1 TABLET BY MOUTH ONCE DAILY 2021-1 1-02 00:00: 00 Yes Topher Michel TAKE 1 CAPSULE BY MOUTH TWICE DAILY 1 0-31 00:00: 00 Yes Topher Michel TAKE 1 TABLET BY MOUTH ONCE DAILY 2021-0 9-28 00:00: 00 Yes Topher Michel TAKE 1 CAPSULE BY MOUTH THREE TIMES DAILY NEEDED FOR ANXIETY 2021-0 9-13 00:00: 00 Yes Topher Michel TAKE 1 TABLET BY MOUTH ONCE DAILY 2021-0 9-08 00:00: 00 Yes Topher Michel TAKE 1 CAPSULE BY MOUTH THREE TIMES DAILY NEEDED FOR ANXIETY 2021-0 9- 00:00: 00 Yes Topher Michel TAKE 1 CAPSULE BY MOUTH EVERY 12 HOURS FOR 10 DAYS 2021-0 -30 00:00: 00 Yes Topher Michel TAKE 1 TABLET BY MOUTH ONCE DAILY 2021-0 7-20 00:00: 00 Yes 20 Topher Michel TAKE 1 TABLET BY MOUTH ONCE DAILY 2021-0 7-20 00:00: 00 Yes Topher Michel TAKE 1 TABLET BY MOUTH TWICE DAILY NEEDED FOR ANXIETY 05-03 00:00: 00 Yes 5 Topher Michel Dose Unknown 04-14 00:00: 00 Yes Topher Michel Vistaril 25 mg capsule 04-13 00:00: 00 Yes 1mg Topher Micehl Dose Unknown 04-13 00:00: 00 Yes Topher Michel buspirone 5 mg tablet 04-03 00:00: 00 Yes 1mg Topher Michel Flonase Allergy Relief 50 mcg/actuati on nasal spray,suspe nsion 04-03 00:00: 00 Yes 12mcg/a ctuatio n Topher Michel Dose Unknown 04-03 00:00: 00 Yes Topher Michel USE 1 TO 2 SPRAY(S) IN EACH NOSTRIL ONCE DAILY 04-03 00:00: 00 Yes Topher Michel TAKE 1 TABLET BY MOUTH EVERY 12 HOURS FOR 10 DAYS 04-02 00:00: 00 Yes Topher Michel omeprazole 20 mg capsule,del ayed release 03-31 00:00: 00 Yes 1mg Topher Michel Dose Unknown 03-22 00:00: 00 Yes Topher Michel Paxil 10 mg tablet 03-09 00:00: 00 Yes 1mg Topher Michel Remeron 15 mg tablet 03-09 00:00: 00 Yes 1mg Topher Michel Paxil 20 mg tablet 01-27 00:00: 00 Yes 1mg Topher Michel Dose Unknown 15 00:00: 00 Yes Topher Michel LORazepam (ATIVAN) tablet 0.5 mg 01-14 00:24: 00 01-14 00:46 :00 No .5mg 0.5 mg, Oral, ONCE, 1 dose, On Sun01/13/22 at 1930, ALEJANDRO [facility] No known medications 01-13 19:38: 26 No [facility] Paxil 20 mg tablet 01-13 00:00: 00 Yes 1mg Topher Michel hydroxyzine HCl 25 mg tablet 01-13 00:00: 00 Yes 1mg Topher Michel TAKE 1 TABLET BY MOUTH EVERY 8 HOURS NEEDED 01-10 00:00: 00 Yes Topher Michel Immunizations Ordered Immunization Name Filled Immunization Name Date Status Comments Source HPV9 HPV9 2024-06-13 00:00:00 Completed Topher Michel HPV9 HPV9 2024-04-10 00:00:00 Completed Topher Michel HPV9 HPV9 2024-04-10 00:00:00 Completed Topher Michel SARS-COV-2 COVID-19 PFIZER VACCINE 2021-06-09 00:00:[address] [facility] SARS-COV-2 COVID-19 PFIZER VACCINE 2021-06-09 00:00:[address] [facility] SARS-COV-2 COVID-19 PFIZER VACCINE 2021-06-09 00:00:[address] [facility] SARS-COV-2 COVID-19 PFIZER VACCINE 2021-06-09 00:00:[address] [facility] SARS-COV-2 COVID-19 PFIZER VACCINE 2021-06-09 00:00:[address] [facility] SARS-COV-2 COVID-19 PFIZER VACCINE 2021-05-19 00:00:[address] [facility] SARS-COV-2 COVID-19 PFIZER VACCINE 2021-05-19 00:00:[address] [facility] SARS-COV-2 COVID-19 PFIZER VACCINE 2021-05-19 00:00:[address] [facility] SARS-COV-2 COVID-19 PFIZER VACCINE 2021-05-19 00:00:[address] [facility] SARS-COV-2 COVID-19 PFIZER VACCINE 2021-05-19 00:00:[address] [facility] SARS-COV-2 COVID-19 PFIZER VACCINE Unknown Completed [facility] SARS-COV-2 COVID-19 PFIZER VACCINE Unknown Completed [facility] Vital Signs Vital Name Observation Time Observation Value Comments S fabiola Systolic blood pressure 2024-10-21 13:48:00 108 mm[Hg] [facility] Diastolic blood pressure 2024-10-21 13:48:00 63 mm[Hg] [facility] Heart rate 2024-10-21 13:48:00 85 /min [facility] Body temperature 2024-10-21 13:48:[address] [facility] Respiratory rate 2024-10-21 13:48:00 15 /min [facility] Body height 2024-10-21 13:48:00 167.6 cm [facility] Body weight 2024-10-21 13:48:00 60.102 kg [facility] BMI 2024-10-21 13:48:00 21.39 kg/m2 [facility] Systolic blood pressure 2024-09-28 09:00:00 99 mm[Hg] [facility] Diastolic blood pressure 2024-09-28 09:00:00 83 mm[Hg] [facility] Heart rate 2024-09-28 09:00:00 89 /min [facility] Respiratory rate 2024-09-28 09:00:00 16 /min [facility] Oxygen saturation in Arterial blood by Pulse oximetry 2024-09-28 09:00:00 100 /min [facility] Body temperature 2024-09-28 05:25:[address] [facility] Body height 2024-09-28 05:25:00 167.6 cm [facility] Body weight 2024-09-28 05:25:00 61.508 kg [facility] BMI 2024-09-28 05:25:00 21.89 kg/m2 [facility] Systolic blood pressure 2024-09-23 15:19:00 110 mm[Hg] [facility] Diastolic blood pressure 2024-09-23 15:19:00 62 mm[Hg] [facility] Heart rate 2024-09-23 15:19:00 81 /min [facility] Body temperature 2024-09-23 15:19:[address] [facility] Respiratory rate 2024-09-23 15:19:00 16 /min [facility] Body height 2024-09-23 15:19:00 167.6 cm [facility] Body weight 2024-09-23 15:19:00 63.458 kg [facility] BMI 2024-09-23 15:19:00 22.58 kg/m2 [facility] Systolic blood pressure 2024-07-02 20:56:00 123 mm[Hg] [facility] Diastolic blood pressure 2024-07-02 20:56:00 79 mm[Hg] [facility] Heart rate 2024-07-02 20:56:00 73 /min [facility] Respiratory rate 2024-07-02 20:56:00 19 /min [facility] Body height 2024-07-02 20:56:00 167.6 cm [facility] Body weight 2024-07-02 20:56:00 58.605 kg [facility] BMI 2024-07-02 20:56:00 20.85 kg/m2 [facility] Oxygen saturation in Arterial blood by Pulse oximetry 2024-07-02 20:56:00 100 /min [facility] Systolic blood pressure 2024-07-02 03:25:00 130 mm[Hg] [facility] Diastolic blood pressure 2024-07-02 03:25:00 56 mm[Hg] [facility] Heart rate 2024-07-02 03:25:00 73 /min [facility] Body temperature 2024-07-02 03:25:[address] [facility] Respiratory rate 2024-07-02 03:25:00 16 /min [facility] Oxygen saturation in Arterial blood by Pulse oximetry 2024-07-02 03:25:00 100 /min [facility] Body height 2024-07-02 00:06:00 167.6 cm [facility] Body weight 2024-07-02 00:06:00 59.875 kg [facility] BMI 2024-07-02 00:06:00 21.31 kg/m2 [facility] Systolic blood pressure 2022-01-14 00:46:45 142 mm[Hg] [facility] Diastolic blood pressure 2022-01-14 00:46:45 89 mm[Hg] [facility] Heart rate 2022-01-14 00:46:45 95 /min [facility] Respiratory rate 2022-01-14 00:46:45 20 /min [facility] Oxygen saturation in Arterial blood by Pulse oximetry 2022-01-14 00:46:45 98 /min [place] [facility] Body temperature 2022-01-13 23:47:[address] [facility] Body height 2022-01-13 23:47:00 167.6 cm [facility] Body weight 2022-01-13 23:47:00 48.988 kg [facility] BMI 2022-01-13 23:47:00 17.43 kg/m2 [facility] BP Systolic 2024-10-03 14:57:00 106 mm[Hg] Step hen F Anand BP Diastolic 2024-10-03 14:57:00 77 mm[Hg] Darrick phen F Anand Weight Measured 2024-10-03 14:57:00 134.00 pounds Topher F Anand Height Measured 2024-10-03 14:57:00 66.00 inches Topher F Anand Body Temperature 2024-10-03 14:57:00 100.00 degrees Topher F Anand Heart Rate 2024-10-03 14:57:00 70.00 /min Nicci en F Anand Respiratory Rate 2024-10-03 14:57:00 18.00 /min Topher F Anand BP Systolic 2024-06-13 16:02:00 133 mm[Hg] Step hen F Anand BP Diastolic 2024-06-13 16:02:00 77 mm[Hg] Darrick phen F Anand Weight Measured 2024-06-13 16:02:00 131.00 pounds Topher F Anand Height Measured 2024-06-13 16:02:00 66.00 inches Topher F Anand Body Temperature 2024-06-13 16:02:00 98.40 degrees Topher F Anand Heart Rate 2024-06-13 16:02:00 82.00 /min Nicci en F Anand Respiratory Rate 2024-06-13 16:02:00 18.00 /min Topher F Anand BP Systolic 2024-04-10 17:46:00 121 mm[Hg] Step hen F Anand BP Diastolic 2024-04-10 17:46:00 74 mm[Hg] Darrick phen F Anand Weight Measured 2024-04-10 17:46:00 130.40 pounds Topher F Anand Height Measured 2024-04-10 17:46:00 66.00 inches Topher F Anand Body Temperature 2024-04-10 17:46:00 98.20 degrees Topher F Anand Heart Rate 2024-04-10 17:46:00 89.00 /min Nicci en F Anand Respiratory Rate 2024-04-10 17:46:00 16.00 /min Topher F Anand BP Systolic 2024-04-09 14:38:00 101 mm[Hg] Step hen F Anand BP Diastolic 2024-04-09 14:38:00 70 mm[Hg] Darrick phen F Anand Weight Measured 2024-04-09 14:38:00 126.40 pounds Topher F Anand Height Measured 2024-04-09 14:38:00 66.00 inches Topher F Anand Body Temperature 2024-04-09 14:38:00 Topher F Anand Heart Rate 2024-04-09 14:38:00 84.00 /min Nicci en F Anand Respiratory Rate 2024-04-09 14:38:00 Topher F Anand BP Systolic 2024-02-28 17:26:00 118 mm[Hg] Step hen F Anand BP Diastolic 2024-02-28 17:26:00 74 mm[Hg] Darrick phen F Anand Weight Measured 2024-02-28 17:26:00 130.40 pounds Topher F Anand Height Measured 2024-02-28 17:26:00 66.00 inches Topher F Anand Body Temperature 2024-02-28 17:26:00 97.40 degrees Topher F Anand Heart Rate 2024-02-28 17:26:00 73.00 /min Nicci en F Anand Respiratory Rate 2024-02-28 17:26:00 19.00 /min Topher F Anand BP Systolic 2024-02-18 17:43:00 115 mm[Hg] Step hen F Anand BP Diastolic 2024-02-18 17:43:00 68 mm[Hg] Darrick phen F Anand Weight Measured 2024-02-18 17:43:00 136.60 pounds Topher F Anand Height Measured 2024-02-18 17:43:00 66.00 inches Topher F Anand Body Temperature 2024-02-18 17:43:00 97.40 degrees Topher F Anand Heart Rate 2024-02-18 17:43:00 72.00 /min Nicci en F Anand Respiratory Rate 2024-02-18 17:43:00 18.00 /min Topher F Anand BP Systolic 2024-02-13 13:39:00 117 mm[Hg] Step hen F Anand BP Diastolic 2024-02-13 13:39:00 73 mm[Hg] Darrick phen F Anand Weight Measured 2024-02-13 13:39:00 132.40 pounds Topher F Anand Height Measured 2024-02-13 13:39:00 66.00 inches Topher F Anand Body Temperature 2024-02-13 13:39:00 98.30 degrees Topher F Anand Heart Rate 2024-02-13 13:39:00 70.00 /min Nicci en F Anand Respiratory Rate 2024-02-13 13:39:00 17.00 /min Topher F Anand BP Systolic 2024-02-07 14:00:00 112 mm[Hg] Step hen F Anand BP Diastolic 2024-02-07 14:00:00 76 mm[Hg] Darrick phen F Anand Weight Measured 2024-02-07 14:00:00 133.00 pounds Topher F Anand Height Measured 2024-02-07 14:00:00 66.00 inches Topher F Anand Body Temperature 2024-02-07 14:00:00 98.20 degrees Topher F Anand Heart Rate 2024-02-07 14:00:00 80.00 /min Nicci en F Anand Respiratory Rate 2024-02-07 14:00:00 19.00 /min Topher F Anand BP Systolic 2024-01-22 15:26:00 115 mm[Hg] Step hen F Anand BP Diastolic 2024-01-22 15:26:00 79 mm[Hg] Darrick phen F Anand Weight Measured 2024-01-22 15:26:00 138.40 pounds Topher F Anand Height Measured 2024-01-22 15:26:00 66.00 inches Topher F Anand Body Temperature 2024-01-22 15:26:00 98.20 degrees Topher F Anand Heart Rate 2024-01-22 15:26:00 84.00 /min Nicci en F Anand Respiratory Rate 2024-01-22 15:26:00 18.00 /min Topher F Anand BP Systolic 2023-12-13 17:48:00 118 mm[Hg] Step hen F Anand BP Diastolic 2023-12-13 17:48:00 77 mm[Hg] Darrick phen F Anand Weight Measured 2023-12-13 17:48:00 136.80 pounds Topher F Anand Height Measured 2023-12-13 17:48:00 66.00 inches Topher F Anand Body Temperature 2023-12-13 17:48:00 98.10 degrees Topher F Anand Heart Rate 2023-12-13 17:48:00 78.00 /min Nicci en F Anand Respiratory Rate 2023-12-13 17:48:00 18.00 /min Topher F Anand BP Systolic 2023-12-05 17:16:00 116 mm[Hg] Step hen F Anand BP Diastolic 2023-12-05 17:16:00 76 mm[Hg] Darrick phen F Anand Weight Measured 2023-12-05 17:16:00 135.00 pounds Topher F Anand Height Measured 2023-12-05 17:16:00 66.00 inches Topher F Anand Body Temperature 2023-12-05 17:16:00 101.70 degrees Topher F Anand Heart Rate 2023-12-05 17:16:00 109.00 /min Step hen F Anand Respiratory Rate 2023-12-05 17:16:00 20.00 /min Topher F Anand BP Systolic 2023-11-21 16:58:00 110 mm[Hg] Step hen F Anand BP Diastolic 2023-11-21 16:58:00 74 mm[Hg] Darrick phen F Anand Weight Measured 2023-11-21 16:58:00 138.00 pounds Topher F Anand Height Measured 2023-11-21 16:58:00 66.00 inches Topher F Anand Body Temperature 2023-11-21 16:58:00 98.00 degrees Topher F Anand Heart Rate 2023-11-21 16:58:00 70.00 /min Nicci en F Anand Respiratory Rate 2023-11-21 16:58:00 20.00 /min Topher F Anand BP Systolic 2023-11-13 09:35:00 120 mm[Hg] Step hen F Anand BP Diastolic 2023-11-13 09:35:00 70 mm[Hg] Darrick phen F Anand Weight Measured 2023-11-13 09:35:00 140.00 pounds Topher F Anand Height Measured 2023-11-13 09:35:00 66.00 inches Topher F Anand Body Temperature 2023-11-13 09:35:00 97.60 degrees Topher F Anand Heart Rate 2023-11-13 09:35:00 79.00 /min Nicci en F Anand Respiratory Rate 2023-11-13 09:35:00 20.00 /min Topher F Anand BP Systolic 2023-10-30 15:27:00 120 mm[Hg] Step hen F Anand BP Diastolic 2023-10-30 15:27:00 77 mm[Hg] Darrick phen F Anand Weight Measured 2023-10-30 15:27:00 138.00 pounds Topher F Anand Height Measured 2023-10-30 15:27:00 66.00 inches Topher F Anand Body Temperature 2023-10-30 15:27:00 98.10 degrees Topher F Anand Heart Rate 2023-10-30 15:27:00 70.00 /min Nicci en F Anand Respiratory Rate 2023-10-30 15:27:00 19.00 /min Topher F Anand BP Systolic 2023-10-23 16:15:00 124 mm[Hg] Step hen F Anand BP Diastolic 2023-10-23 16:15:00 76 mm[Hg] Darrick phen F Anand Weight Measured 2023-10-23 16:15:00 137.40 pounds Topher F Anand Height Measured 2023-10-23 16:15:00 66.00 inches Topher F Anand Body Temperature 2023-10-23 16:15:00 98.10 degrees Topher F Anand Heart Rate 2023-10-23 16:15:00 80.00 /min Nicci en F Anand Respiratory Rate 2023-10-23 16:15:00 Topher F Anand BP Systolic 2023-10-04 09:51:00 110 mm[Hg] Step hen F Anand BP Diastolic 2023-10-04 09:51:00 70 mm[Hg] Darrick phen F Anand Weight Measured 2023-10-04 09:51:00 135.00 pounds Topher F Anand Height Measured 2023-10-04 09:51:00 66.00 inches Topher F Anand Body Temperature 2023-10-04 09:51:00 98.30 degrees Topher F Anand Heart Rate 2023-10-04 09:51:00 110.00 /min Step hen F Anand Respiratory Rate 2023-10-04 09:51:00 18.00 /min Topher F Anand BP Diastolic 2023-10-01 15:47:00 75 mm[Hg] Darrick phen F Anand Weight Measured 2023-10-01 15:47:00 135.40 pounds Topher F Anand Height Measured 2023-10-01 15:47:00 66.00 inches Topher F Anand Body Temperature 2023-10-01 15:47:00 98.20 degrees Topher F Anand Heart Rate 2023-10-01 15:47:00 84.00 /min Nicci en F Anand Respiratory Rate 2023-10-01 15:47:00 18.00 /min Topher F Anand BP Systolic 2023-10-01 15:47:00 115 mm[Hg] Step hen F Anand Procedures Procedure Date / Time Performed Performing Clinician Source POCT URINALYSIS 2024-10-21 13:50:00 Arabella Arce [facility] FIRST TRIMESTER LESS THAN 14 WEEKS WITH TRANSVAGINAL 2024-09-28 08:24:18 Nichole Hanson [facility] LIPASE 2024-09-28 06:03:00 [facility] COMP. METABOLIC PANEL (13069) 2024-09-28 06:03:[address] [facility] CBC WITH DIFF 2024-09-28 06:03:00 Nichole Hanson [facility] URINALYSIS 2024-09-28 06:03:00 [facility] POCT TEST 2024-09-23 15:18:[address] [facility] POCT URINALYSIS W/O SPECIFIC GRAVITY 2024-09-23 15:18:[address] [facility] TRANSTHORACIC ECHO (TTE) COMPLETE 2024-07-16 20:45:[address] [facility] POCT TEST 2024-07-02 02:16:[address] [facility] [id number] Colposcopy Entire Vagina W/vagina/cervix Bx 2024-02-13 00:00:00 Topher Michel NOTICE OF PRIVACY PRACTICES 2022-01-13 23:24:42 Doctor Unassigned, Dorris [facility] CONSENT/REFUSAL FOR DIAGNOSIS AND TREATMENT 2022-01-13 23:23:10 Doctor Unassigned, Dorris [facility] Encounters Start Date/Time End Date/Time Encounter Type Admission Type Attending [facility] Care Facility Care Department Encounter ID Source 2023-09-25 16:50:01 Outpatient [facility] [id number] [facility] 2022-07-28 21:09:46 Outpatient [facility] [id number] [facility] 2024-10-28 14:45:00 2024-10-28 14:45:00 Outpatient R [facility] [id number] [facility] 2024-10-21 08:00:00 2024-10-21 08:12:36 Outpatient R ARABELLA ARCE 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 1.2.840.114 350.1.13.10 4.2.7.2.686 [id number] [facility] 2024-10-03 14:52:13 2024-10-03 14:52:13 Outpatient [facility] [id number] Topher Michel 2024-10-03 00:00:00 2024-10-03 00:00:00 Outpatient Visit SFA [id number] Topher Michel 2024-09-27 23:30:00 2024-09-28 03:32:00 Emergency X NICHOLE HANSON SHINTA [facility] ERT [id number] [facility] 2024-09-27 23:30:00 2024-09-28 03:32:00 Emergency Nichole Hanson [facility] 1.2840.114 350.1.13.10 4.2.7.2.686 [id number] [facility] 2024-09-23 09:00:00 2024-09-23 11:02:03 Outpatient R ARABELLA ARCE 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 1.2840.114 350.1.13.10 4.2.7.2.686 [id number] [facility] 2024-08-05 00:00:00 2024-08-05 08:34:31 Telephone Mauricio Andrade [facility] 1.2.840.114 350.1.13.10 4.2.7.2.686 [id number] [facility] 2024-07-31 00:00:00 2024-08-01 09:28:58 Telephone Mauricio Andrade [facility] 1.2.840.114 350.1.13.10 4.2.7.2.686 [id number] [facility] 2024-07-31 14:29:06 2024-07-31 14:29:06 Outpatient SFA SFA [id number] Topher Michel 2024-07-17 00:00:00 2024-07-17 10:59:12 Telephone ShortyMakenzieyina AnibalTor [facility] 1.2.840.114 350.1.13.10 4.2.7.2.686 [id number] [facility] 2024-07-16 15:36:22 2024-07-16 23:59:00 Hospital Encounter Makenzie Andradeyina AnibalTor [facility] 1.2.840.114 350.1.13.10 4.2.7.2.686 [id number] [facility] 2024-07-16 14:45:04 2024-07-16 15:35:00 Outpatient R MAURICIO ANDRADE [facility] [id number] [facility] 2024-07-16 14:45:04 2024-07-16 15:35:00 Hospital Encounter AndradeMakenzieyina AnibalTor [facility] 1.2.840.114 350.1.13.10 4.2.7.2.686 [id number] [facility] 2024-07-02 15:30:00 2024-07-02 16:13:20 Outpatient R MAURICIO ANDRADE [facility] [id number] [facility] 2024-07-02 15:30:00 2024-07-02 16:13:20 Office Visit Shorty Makenzieyina Jose MiguelTor [facility] 1.2.840.114 350.1.13.10 4.2.7.2.686 [id number] [facility] 2024-07-01 19:09:00 2024-07-01 22:27:00 Emergency X KAIT, MAHESH HENRIQUEZ [facility] ERT [id number] [facility] 2024-07-01 19:09:00 2024-07-01 22:27:00 Emergency Mahesh Hagan [facility] 1.2.840.114 350.1.13.10 4.2.7.2.686 [id number] [facility] 2024-06-13 15:50:48 2024-06-13 15:50:48 Outpatient SFA SFA [id number] Topher Michel 2024-06-13 00:00:00 2024-06-13 00:00:00 Outpatient Visit SFA [id number] Topher Michel 2024-04-10 17:40:32 2024-04-10 17:40:32 Outpatient SFA SFA [id number] Topher Michel 2024-04-10 00:00:00 2024-04-10 00:00:00 Outpatient Visit SFA [id number] Topher Michel 2024-04-09 14:37:11 2024-04-09 14:37:11 Outpatient SFA SFA [id number] Topher Michel 2024-04-09 00:00:00 2024-04-09 00:00:00 Outpatient Visit SFA [id number] Topher Michel 2024-02-28 17:18:39 2024-02-28 17:18:39 Outpatient SFA SFA [id number] Topher Michel 2024-02-28 00:00:00 2024-02-28 00:00:00 Outpatient Visit SFA [id number] Topher Michel 2024-02-18 17:40:26 2024-02-18 17:40:26 Outpatient SFA SFA [id number] Topher Michel 2024-02-18 00:00:00 2024-02-18 00:00:00 Outpatient Visit SFA [id number] Topher Michel 2024-02-13 13:27:48 2024-02-13 13:27:48 Outpatient SFA SFA [id number] Topher Michel 2024-02-07 15:15:55 2024-02-07 15:15:55 Outpatient SFA SFA [id number] Topher Michel 2024-02-07 00:00:00 2024-02-07 00:00:00 Outpatient Visit SFA [id number] Topher Michel 2024-02-05 08:29:37 2024-02-05 08:29:37 Outpatient SFA SFA [id number] Topher Michel 2024-01-22 08:32:22 2024-01-22 08:32:22 Outpatient SFA SFA [id number] Topher Michel 2024-01-08 09:32:35 2024-01-08 09:32:35 Outpatient SFA SFA [id number] Topher Michel 2024-01-02 09:37:32 2024-01-02 09:37:32 Outpatient SFA SFA [id number] Topher Michel 2023-12-13 17:44:05 2023-12-13 17:44:05 Outpatient SFA SFA [id number] Topher Michel 2023-12-05 17:04:46 2023-12-05 17:04:46 Outpatient SFA SFA [id number] Topher Aguillon Anand 2023-12-04 08:23:44 2023-12-04 08:23:44 Outpatient SFA SFA [id number] Topher Michel 2023-11-21 16:58:22 2023-11-21 16:58:22 Outpatient SFA SFA [id number] Topher Michel 2023-11-19 16:07:09 2023-11-19 16:07:09 Outpatient SFA SFA [id number] Topher Michel 2023-11-13 09:34:42 2023-11-13 09:34:42 Outpatient SFA SFA [id number] Topher Michel 2023-10-30 15:22:15 2023-10-30 15:22:15 Outpatient SFA SFA [id number] Topher Michel 2023-10-23 15:52:48 2023-10-23 15:52:48 Outpatient SFA SFA [id number] Topher Michel 2023-10-05 16:07:32 2023-10-05 16:07:32 Outpatient SFA SFA [id number] Topher Michel 2023-10-04 10:56:19 2023-10-04 10:56:19 Outpatient SFA SFA [id number] Topher Michel 2023-10-02 14:46:17 2023-10-02 14:46:17 Outpatient SFA SFA [id number] Topher Michel 2023-10-01 15:39:09 2023-10-01 15:39:09 Outpatient SFA SFA [id number] Topher Michel 2023-09-18 16:54:27 2023-09-18 16:54:27 Outpatient SFA SFA [id number] Topher Michel 2023-09-05 16:11:06 2023-09-05 16:11:06 Outpatient SFA SFA [id number] Topher Michel 2023-09-03 15:43:11 2023-09-03 15:43:11 Outpatient SFA SFA [id number] Topher Michel 2023-08-17 15:16:29 2023-08-17 15:16:29 Outpatient SFA SFA [id number] Topher Michel 2023-08-09 15:55:19 2023-08-09 15:55:19 Outpatient SFA SFA [id number] Topher Michel 2023-08-02 15:56:04 2023-08-02 15:56:04 Outpatient SFA SFA [id number] Topher Michel 2023-07-31 13:23:48 2023-07-31 13:23:48 Outpatient SFA SFA [id number] Topher Michel 2023-07-28 14:23:00 2023-07-28 14:23:00 Outpatient SFA [facility] [id number] Topher Michel 2023-07-17 15:02:03 2023-07-17 15:02:03 Outpatient [place] [id number] Topher Michel 2023-03-26 14:03:12 2023-03-26 14:03:12 Outpatient [place] [id number] Topher Michel 2023-03-22 11:53:47 2023-03-22 11:53:47 Outpatient [place] [id number] Topher Michel 2023-02-20 16:37:03 2023-02-20 16:37:03 Outpatient [place] [id number] Topher Michel 2023-02-15 15:14:01 2023-02-15 15:14:01 Outpatient [place] [id number] Topher Michel 2023-01-16 08:47:40 2023-01-16 08:47:40 Outpatient [place] [id number] Topher Michel 2022-08-14 11:15:06 2022-08-14 11:15:06 Outpatient [place] [id number] Topher Michel 2022-01-13 18:49:00 2022-01-13 21:18:00 Emergency [place], [facility] 1.2.840.114 350.1.13.10 4.2.7.2.686 [id number] [facility] 2022-01-13 18:49:00 2022-01-13 21:18:00 Emergency X [facility] ERT [id number] [facility] Results Test Description Test Time Test Comments Results Result Co mments Source [facility] less than 14 weeks with [id number] 08:40:17Ordering Physician: ?NICHOLE ?VINCENT HISTORY: ?Pelvic pain in early COMPARISON: None Permanently recorded sonographic images were stored in the PACs system. ? LMP: Uncertain Transabdominal imaging was performed. Transvaginal imaging was performedfor better evaluation of the endometrium and adnexa. FINDINGS:The uterus measures 7.5 x 5.2 x 6.6 cm. Single intrauterine isseen. Biometrics suggests a gestational age of less than 5 weeks. Nodefinite cardiac activity is seen. A tiny subchorionic hemorrhage issuspected adjacent to the gestational sac. This measures less than 1 cm. The right ovary measures 4.2 x 3.9 x 2.8 cm. The left ovary measures 5.4 x4.2 x 2.6 cm. No free fluid is seen in the pelvis. Pulse color Doppler imaging of the ovaries demonstrates normal color-flowand wave forms.[facility] Urinalysis w/o Specific [id number] 15:19:00* Test Item Value Reference Range Interpretation Comme nts POCT PH U (test code = 3254) 6 mg/dl 5-8 POCT U LEUK EST (test code = 3263) trace Negative - Negative POCT U NIT (test code = 3262) neg Negative - Negati ve POCT U PROT (test code = 3259) trace Negative - Negat sarbjit POCT U GLU (test code = 3256) neg Negative - Negati ve POCT U KETONE (test code = 3258) neg Negative - Neg ative POCT U BLD (test code = 3257) neg Negative - Negati ve [facility] [id number] 15:18:00* Test Item Value Reference Range Interpretation Comme nts POCT PREG (test code = 1605) Positive On board controls acceptable with C Line (test code = 3574) Yes POCT PREG LOT # (test code = 3575) POCT PREG TEST DATE ( test code = 3576) [facility] 01:02:59* Test Item Value Reference Range Interpretation Comme nts Height (test code = 9256603816) 66 in Weight (test code = 4688555909) 129 lbs Systolic BP (test code = 5571157242) 109 mmHg Diastolic BP (test code = 2244770277) 68 mmHg Heart Rate (test code = 2188213593) 68 bpm RVOT diameter (test code = 5986257944) 1.58 cm RVOT Proximal Diameter (test code = 1729686918) 1.87 cm MR max PG (test code = 9478109723) 80.70 mm[Hg] MR max leobardo (test code = 9351727977) 449.20 cm/s Ao root diam (test code = 8594710076) 2.02 cm Mr max leobardo (test code = 6734280353) 449.2 m/s Aortic root (test code = 0323333100) 2.02 cm Ao root annulus (test code = 7320324610) 2.02 cm BSA (test code = 8303226368) 1.66 m2 LVOT diameter (test code = 1756539510) 1.50 cm LVOT area (test code = 2047370817) 1.77 cm2 LA size (test code = 3615043419) 2.5 cm ACS (test code = 8552113215) 1.92 cm PV PEAK VELOCITY (test code = 2105071081) 76.0 cm/s PV peak gradient (test code = 3413017273) 2.31 mmHg MV E-F slope (test code = 3699724759) 32.00 cm/s MV Peak E Leobardo (test code = 7386896181) 108.5 cm/s MV valve area p 1/2 method (test code = 1650454840) 2.70 cm2 MV dec slope (test code = 7951938951) 400.90 cm/s2 MV P1/2t max leobardo (test code = 7724492850) 109.50 cm/s MV Peak A Leobardo (test code = 9873940230) 62.4 cm/s E/A ratio (test code = 8714456651) 1.74 ratio LVOT stroke volume (test code = 9590212932) 36.80 cm3 LVOT peak leobardo (test code = 1367488687) 109.5 cm/s LVOT mn grad (test code = 7117435769) 2.2 mmHg AV LVOT peak gradient (test code = 0371717768) 4.8 mmHg LVOT peak VTI (test code = 7737775916) 20.8 cm LV V1 mean (test code = 6542104926) 66.90 cm/s Aortic valve mean velocity (test code = 2435063010) 99.3 cm/s Ao peak leobardo (test code = 6144757925) 164.0 cm/s Ao VTI (test code = 7209675223) 35.1 cm AV area by cont VTI (test code = 4857947609) 1.1 cm2 AV area peak leobardo (test code = 9098842527) 1.2 cm2 Ao max PG (test code = 5289222556) 10.80 mm[Hg] AV peak gradient (test code = 2735691114) 10.8 mmHg AV valve area (test code = 4113819427) 1.05 cm2 AV mean gradient (test code = 2907138467) 4.7 mmHg TR Peak Leobardo (test code = 8760282333) 267.4 cm/s Triscuspid Valve Regurgitation Peak Gradient (test code = 7040752032) 28.6 mmHg LAV(MOD-sp4) (test code = 1521325221) 14.00 mL LA Volume Index (BP) (test code = 1094517414) 10.0 mL/m2 LA volume (BP) (test code = 2783765357) 16.6 mL LAV(MOD-sp2) (test code = 4219444303) 18.80 mL A4C EF (test code = 6088233730) 61.20 % EF(sp4-el) (test code = 2846894778) 62.10 % SV(MOD-sp4) (test code = 1930036838) 38.90 mL SV(sp4-el) (test code = 2186222831) 38.50 mL LVIDD (test code = 6509001624) 3.90 cm Left Ventricular End Diastolic Volume by Teichholz Method (test code = 3590432) 67.8 mL IVS (test code = 9761036166) 0.93 cm Interventricular Septum Diastolic Thickness by 2D (test code = 3136035) 0.93 cm LVPWD (test code = 0159135191) 0.86 cm PW (test code = 6841780025) 0.86 cm 0.6-1.1 EF(Teich) (test code = 8991609861) 61.80 % LVIDS (test code = 0737847245) 2.70 cm Left Ventricular End Systolic Volume by Teichholz Method (test code = 2938213) 25.9 mL FS (test code = 2494187947) 33 % EF - 2D (test code = 60113321) 61.80 % RVOT area (test code = 8081211035) 1.96 cm2 Radiology Study observation (narrative) (test code = 57859-3) EDGARD (test code = EDGARD) ?Left?Ventricle: Left ventricle size is normal. Normal wall thickness. Normal wall motion. Normal systolic function with a visually estimated EF of 60 - 65%. Normal diastolic function. ?Tricuspid?Valve: Trace transvalvular regurgitation. Insufficient tricuspid regurgitation jet to estimate RVSP . ?RA pressure is 5-10 mmHg. Left VentricleLeft ventricle size is normal. Normal wall thickness. Normal wall motion. Normal systolic function with a visually estimated EF of 60 - 65%. Normal diastolic function.Right VentricleRight ventricle size is normal. Normal systolic function.Left AtriumLeft atrium size is normal.Right AtriumRight atrium size is normal.Mitral ValveMitral valve structure is normal. Trace transvalvular regurgitation.Tricusp id ValveTricuspid valve structure is normal. Trace transvalvular regurgitation. Insufficient tricuspid regurgitation jet to estimate RVSP . RA pressure is 5-10 mmHg.Aortic ValveAortic valve opens well.Pulmonic ValvePulmonic valve is grossly normal in structure and function. Trace transvalvular regurgitation.Ascendi ng AortaNormal sized ascending aorta, aortic arch and aortic root.PericardiumNo pericardial effusion.Study DetailsStudy quality was adequate. A complete echocardiogram was performed using 2D, color flow Doppler and spectral Doppler. [facility] [id number] 02:16:00* Test Item Value Reference Range Interpretation Comme nts POCT PREG (test code = 1605) Negative On board controls acceptable with C Line (test code = 3574) Yes POCT PREG LOT # (test code = 3575) [id number] POCT PREG TEST DATE ( test code = 3576) 2025-07-24 Lab Interpretation (test cod e = 26002-2) Normal [facility], NAAT, [id number] 21:40:03* Test Item Value Reference Range Interpretation Comme nts CHLAMYDIA, NAAT, URINE (test code = 62369) NEGATIVE NEGATIVE Testing is perfo rmed with Mia TATA 6800/8800 systems usingreal-time polymerase chain reaction (PCR) method. A negative result does not exclude low level infection, specimensampling error, or collection error. GONORRHEA, NAAT, URINE (test code = 62647) NEGATIVE NEGATIVE Testing is perfo rmed with Mia TATA 6800/8800 systems usingreal-time polymerase chain reaction (PCR) method. A negative result does not exclude low level infection, specimensampling error, or collection error. UNLESS OTHERWISE INDICATED, ALL TESTING PERFORMED AT [facility] [address] [place] [address] DIRECTOR INTERNAL AUDIT: SUSAN YANEZ M.D. [facility] NUMBER [id number] [facility] [place]. [id number] HEPATITIS PANEL, [id number] 03:55:14* Test Item Value Reference Range Interpretation Comme nts HEPATITIS A TOTAL AB (test code = 2725) NON-REACTIVE NON-REACTIVE HEPATITIS B SURF AG (test code = 2739) NON-REACTIVE NON-REACTIVE HEP B CORE TOTAL AB (test code = 2729) NON-REACTIVE NON-REACTIVE HEPATITIS B SURFACE AB (test code = 2737) NON-REACTIVE NON-REACTIVE HEPATITIS C ANTIBODY (test code = 4675) NON-REACTIVE NON-REACTIVE INTERPRETATION HEPATITIS A: (test code = 2552) (NOTE) Hepatitis A sero logy shows no evidence of past exposure to orcurrent infection with hepatitis A virus; patient not immune tohepatitis A. INTERPRETATION HEPATITIS B: (test code = 36040) (NOTE) Hepatitis B sero logy shows no evidence of past exposure to orcurrent infection with hepatitis B virus. No evidence of hepatitis Bimmunization is identified. INTERPRETATION HEPATITIS C: (test code = 85244) (NOTE) Hepatitis C sero logy shows no evidence of exposure to hepatitisC virus at this time. It can take up to 12 months after exposure tothe hepatitis C virus for antibodies to become detectable in the blood in certain patients. HIV 1/2 4TH GEN, RFLX [id number] 03:55:14* Test Item Value Reference Range Interpretation Comme nts HIV 1/2 4TH GEN, RFLX CONF ( test code = 3514) NON-REACTIVE NON-REACTIVE RPR REFLEX TO T. P[facility] - [id number] 03:53:20* Test Item Value Reference Range Interpretation Comme nts RPR (test code = 59398) NON-REACTIVE NON-REACTIVE RPR TITER (test code = 3500) NOT INDIC. TITER NOT INDIC. HEPATITIS PROFILE (A,B,C)2024-04-10 00:00:00* Test Item Value Reference Range Interpretation Comme nts HEPATITIS A TOTAL AB (test c ode = 2725) NON-REACTIVE HEPATITIS B SURF AG (test co de = 2739) NON-REACTIVE HEP B CORE TOTAL AB (test co de = 2729) NON-REACTIVE HEPATITIS B SURFACE AB (test code = 2737) NON-REACTIVE HEPATITIS C ANTIBODY (test c ode = 4675) NON-REACTIVE INTERPRETATION HEPATITIS A: (test code = 2552) (NOTE) INTERPRETATION HEPATITIS B: (test code = 23697) (NOTE) INTERPRETATION HEPATITIS C: (test code = 78718) (NOTE) Topher Aguillon AustinRPR REFLEX TO T. [facility] - [id number] 00:00:00* Test Item Value Reference Range Interpretation Comme nts RPR (test code = 29549) NON-REACTIVE RPR TITER (test code = 3500) NOT INDIC. TITER Topher Aguillon AustinHIV 1/2 4TH GEN, RFLX [id number] 00:00:00* Test Item Value Reference Range Interpretation Comme nts HIV 1/2 4TH GEN, RFLX CONF ( test code = 3514) NON-REACTIVE Topher Aguillon AustinCT/NG, NAAT, [id number] 00:00:00* Test Item Value Reference Range Interpretation Comme nts CHLAMYDIA, NAAT, URINE (test code = 61019) NEGATIVE GONORRHEA, NAAT, URINE (test code = 54157) NEGATIVE Topher Aguillon AustinHEPATITIS PROFILE (A,B,C)2024-04-10 00:00:00* Test Item Value Reference Range Interpretation Comme nts HEPATITIS A TOTAL AB (test c ode = 2725) NON-REACTIVE HEPATITIS B SURF AG (test co de = 2739) NON-REACTIVE HEP B CORE TOTAL AB (test co de = 2729) NON-REACTIVE HEPATITIS B SURFACE AB (test code = 2737) NON-REACTIVE HEPATITIS C ANTIBODY (test c ode = 4675) NON-REACTIVE INTERPRETATION HEPATITIS A: (test code = 2552) (NOTE) INTERPRETATION HEPATITIS B: (test code = 88036) (NOTE) INTERPRETATION HEPATITIS C: (test code = 55479) (NOTE) Topher Aguillon AustinRPR REFLEX TO T. [facility] - [id number] 00:00:00* Test Item Value Reference Range Interpretation Comme nts RPR (test code = 34707) NON-REACTIVE RPR TITER (test code = 3500) NOT INDIC. TITER Topher MichelHIV 1/2 4TH GEN, RFLX [id number] 00:00:00* Test Item Value Reference Range Interpretation Comme nts HIV 1/2 4TH GEN, RFLX CONF ( test code = 3514) NON-REACTIVE Topher Aguillon AustinCT/NG, NAAT, [id number] 00:00:00* Test Item Value Reference Range Interpretation Comme nts CHLAMYDIA, NAAT, URINE (test code = 84646) NEGATIVE GONORRHEA, NAAT, URINE (test code = 01311) NEGATIVE Topher Aguillon AustinHEPATITIS PROFILE (A,B,C)2024-04-10 00:00:00* Test Item Value Reference Range Interpretation Comme nts HEPATITIS A TOTAL AB (test c ode = 2725) NON-REACTIVE HEPATITIS B SURF AG (test co de = 2739) NON-REACTIVE HEP B CORE TOTAL AB (test co de = 2729) NON-REACTIVE HEPATITIS B SURFACE AB (test code = 2737) NON-REACTIVE HEPATITIS C ANTIBODY (test c ode = 4675) NON-REACTIVE INTERPRETATION HEPATITIS A: (test code = 2552) (NOTE) INTERPRETATION HEPATITIS B: (test code = 28655) (NOTE) INTERPRETATION HEPATITIS C: (test code = 62659) (NOTE) Topher Aguillon AustinRPR REFLEX TO T. PALLIDUM - [id number] 00:00:00* Test Item Value Reference Range Interpretation Comme nts RPR (test code = 05352) NON-REACTIVE RPR TITER (test code = 3500) NOT INDIC. TITER Topher MichelHIV 1/2 4TH GEN, RFLX [id number] 00:00:00* Test Item Value Reference Range Interpretation Comme nts HIV 1/2 4TH GEN, RFLX CONF ( test code = 3514) NON-REACTIVE Topher Aguillon AustinCT/NG, NAAT, [id number] 00:00:00* Test Item Value Reference Range Interpretation Comme nts CHLAMYDIA, NAAT, URINE (test code = 69454) NEGATIVE GONORRHEA, NAAT, URINE (test code = 50339) NEGATIVE Topher Aguillon AustinVAGINAL PATHOGENS DNA [id number] 13:02:08* Test Item Value Reference Range Interpretation Comme nts BROOKE SPECIES (test code = 65815) POSITIVE NEGATIVE A G. VAGINALIS (test code = 77843) NEGATIVE NEGATIVE T. VAGINALIS (test code = 59154) NEGATIVE NEGATIVE Note: The [facility] ir VPIII Microbial Identification Testis a DNA probe test intended for use in the detectionand identification of Brooke species, Gardnerellavaginalis and Trichomonas vaginalis nucleic acid. UNLESS OTHERWISE INDICATED, ALL TESTING PERFORMED AT [facility] [address] [place] [address] DIRECTOR INTERNAL AUDIT: SUSAN YANEZ M.D. [place] NUMBER [id number] [facility] [place]. [id number] VAGINAL PATHOGENS DNA [id number] 00:00:00* Test Item Value Reference Range Interpretation Comme nts BROOKE SPECIES (test code = 20485) POSITIVE G. VAGINALIS (test code = 63132) NEGATIVE T. VAGINALIS (test code = 06646) NEGATIVE Topher Aguillon AustinVAGINAL PATHOGENS DNA [id number] 00:00:00* Test Item Value Reference Range Interpretation Comme nts BROOKE SPECIES (test code = 65638) POSITIVE G. VAGINALIS (test code = 22853) NEGATIVE T. VAGINALIS (test code = 86650) NEGATIVE Topher Aguillon AustinVAGINAL PATHOGENS DNA [id number] 00:00:00* Test Item Value Reference Range Interpretation Comme nts BROOKE SPECIES (test code = 60387) POSITIVE G. VAGINALIS (test code = 12909) NEGATIVE T. VAGINALIS (test code = 69260) NEGATIVE Topher Aguillon AustinVAGINAL PATHOGENS DNA [id number] 00:00:00* Test Item Value Reference Range Interpretation Comme nts BROOKE SPECIES (test code = 79003) POSITIVE G. VAGINALIS (test code = 43648) NEGATIVE T. VAGINALIS (test code = 69965) NEGATIVE Topher Aguillon AustinVAGINAL PATHOGENS DNA [id number] 00:00:00* Test Item Value Reference Range Interpretation Comme nts BROOKE SPECIES (test code = 73985) POSITIVE G. VAGINALIS (test code = 27745) NEGATIVE T. VAGINALIS (test code = 11536) NEGATIVE Topher Aguillon AustinSURGICAL PATHOLOGY [id number] 13:04:14* Test Item Value Reference Range Interpretation Comments DIAGNOSIS: (test code = 8200) (NOTE) A) Curettage - E ndocervixBenign endocervical tissue. B) Biopsy - Cervix 3:00Benign squamous mucosa; no transformation zone present. C) Biopsy - Cervix 12:00Benign squamous mucosa; no transformation zone present. COMMENTS: (test code = 8205) (NOTE) The previously r eported abnormal Pap (accession #[id number]) isreviewed. The atypical cells identified on the Pap slide are notrepresented in the biopsy material. MICROSCOPIC DESCRIPTION: (test code = 8210) (NOTE) A) The sample co ntains benign endocervical glandular epithelium.No atypia is present. B) The biopsy consists of benign squamous mucosa. Squamocolumnartransformation zone is not identified in the biopsy. There is noatypia, dysplasia, or malignancy. C) The biopsy consists of benign squamous mucosa. Squamocolumnartransformation zone is not identified in the biopsy. There is noatypia, dysplasia, or malignancy. CLINICAL DATA: (test code = 8401) (NOTE) Not specified GROSS DESCRIPTION: (test code = 8220) (NOTE) A) SPECIMEN LABE LED: EndocervixSIZE/WEIGHT: 0.7x0.6x0.1 cm AggregateSPECIMEN COLOR: TanNUMBER OF TISSUE PIECES: multipleSUBMITTED IN CASSETTE(S): [id number]: FormalinCOMMENTS:Filtered and entirely submitted. B) SPECIMEN LABELED: Cervix 3:00SIZE/WEIGHT: 0.4x0.4x0.1 cm SPECIMEN COLOR: TanNUMBER OF TISSUE PIECES: 1SUBMITTED IN CASSETTE(S): [id number]: FormalinCOMMENTS:Entirely submitted intact. C) SPECIMEN LABELED: Cervix 12:00SIZE/WEIGHT: 0.5x0.4x0.2 cm SPECIMEN COLOR: TanNUMBER OF TISSUE PIECES: 1SUBMITTED IN CASSETTE(S): [id number]: FormalinCOMMENTS:Entirely submitted intact. PATHOLOGIST: (test code = 8250) (NOTE) Idania Beverly M.D. Specimens processed and interpreted at [facility], [address] [place] [address], , CLIA: [id number] CPT: (test code = 8400) (NOTE) [id number] UNLESS O THERWISE INDICATED, ALL TESTING PERFORMED AT [facility] [address] [place] [address] DIRECTOR INTERNAL AUDIT: Patricia YEN NUMBER [id number] [facility] [place] [place]. [id number] SURGICAL PATHOLOGY [id number] 00:00:00* Test Item Value Reference Range Interpretation Comme nts DIAGNOSIS: (test code = 8200) (NOTE) COMMENTS: (test code = 8205) (NOTE) MICROSCOPIC DESCRIPTION: (te st code = 8210) (NOTE) CLINICAL DATA: (test code = 8401) (NOTE) GROSS DESCRIPTION: (test code = 8220) (NOTE) PATHOLOGIST: (test code = 8250) (NOTE) CPT: (test code = 8400) (NOTE) PDFE (test code = PDFReport) PDF Topher Aguillon [facility] PATHOLOG[facility] [id number] 00:00:00* Test Item Value Reference Range Interpretation Comme nts DIAGNOSIS: (test code = 8200) (NOTE) COMMENTS: (test code = 8205) (NOTE) MICROSCOPIC DESCRIPTION: (te st code = 8210) (NOTE) CLINICAL DATA: (test code = 8401) (NOTE) GROSS DESCRIPTION: (test code = 8220) (NOTE) PATHOLOGIST: (test code = 8250) (NOTE) CPT: (test code = 8400) (NOTE) PDFE (test code = PDFReport) PDF Topher Aguillon [facility] PATHOLOG[facility] [id number] 00:00:00* Test Item Value Reference Range Interpretation Comme nts DIAGNOSIS: (test code = 8200) (NOTE) COMMENTS: (test code = 8205) (NOTE) MICROSCOPIC DESCRIPTION: (te st code = 8210) (NOTE) CLINICAL DATA: (test code = 8401) (NOTE) GROSS DESCRIPTION: (test code = 8220) (NOTE) PATHOLOGIST: (test code = 8250) (NOTE) CPT: (test code = 8400) (NOTE) PDFE (test code = PDFReport) PDF Topher Aguillon [facility] [id number] 00:00:00* Test Item Value Reference Range Interpretation Comme nts DIAGNOSIS: (test code = 8200) (NOTE) COMMENTS: (test code = 8205) (NOTE) MICROSCOPIC DESCRIPTION: (te st code = 8210) (NOTE) CLINICAL DATA: (test code = 8401) (NOTE) GROSS DESCRIPTION: (test code = 8220) (NOTE) PATHOLOGIST: (test code = 8250) (NOTE) CPT: (test code = 8400) (NOTE) PDFE (test code = PDFReport) PDF Topher Aguillon AustinSURGICAL PATHOLOGY [id number] 00:00:00* Test Item Value Reference Range Interpretation Comme nts DIAGNOSIS: (test code = 8200) (NOTE) COMMENTS: (test code = 8205) (NOTE) MICROSCOPIC DESCRIPTION: (te st code = 8210) (NOTE) CLINICAL DATA: (test code = 8401) (NOTE) GROSS DESCRIPTION: (test code = 8220) (NOTE) PATHOLOGIST: (test code = 8250) (NOTE) CPT: (test code = 8400) (NOTE) PDFE (test code = PDFReport) PDF Topher Aguillon AustinHPV HIGH IF ABNORMAL [id number] 16:32:37* Test Item Value Reference Range Interpretation Comme nts HPV HIGH IF ABNORMAL THINPRE P (test code = 51444) SEE BELOW PAP TEST, THINPREP, [id number] 16:32:37* Test Item Value Reference Range Interpretation Comme nts SOURCE: (test code = 8001) Cervical/Endoc ervical SLIDES: (test code = 8011) 1 LMP: (test code = 8021) 11/18/2023 SPECIMEN ADEQUACY: (test code = 43634) (NOTE) Satisfactory for evaluation. Endocervical cells/transformation zone component present. INTERPRETATION: (test code = 38320) ASCUS/EPITH. ABNORMALITY; SEE BELOW A - ------- EPITHELIAL CELL ABNORMALITY Atypical squamous cells of undetermined significance (ASC-US) BAKER SECOND: (test code = 8101) MAGDA Blancas(ASCP) PATHOLOGIST INTERPRETATION BY: (test code = 8122) Kate Diaz M.D. LOCATION: (test code = 89355) (NOTE) Specimens proces sed and interpreted at [facility] , [address] [place] [address], , CLIA: [id number] CPT: (test code = 8140) (NOTE) 33063, 70432, 88 175 UNLESS OTHERWISE INDICATED, COMPUTER AIDED AND BAKER SECOND SCREENING PERFORMED. The Pap test is a screening test with an inherent, but low probability of error. Your patient should be reminded to consult you immediately if she experiences any suspicious signs or symptoms, regardless of her Pap test result. An alternate report format containing images or consolidated prior Pap history is available as applicable. HPV HIGH RISK WITH GENOTYPE, [id number] 16:26:27* Test Item Value Reference Range Interpretation Comme nts HPV HIGH RISK INTERP (test code = 53970) POSITIVE NEGATIVE A HPV 16 (test code = 76079) NEGATIVE HPV 18 (test code = 77825) NEGATIVE HPV, HR, OTHER GENOTYPES (test code = 63889) POSITIVE A Testing methodol ogy is real-time PCR utilizing hydrolysis probes with the Mia Tata system. The test individually detects genotypes 16 and 18, as well as the other 12 high risk types (31,33,35,39,45,51,52,56 ,58,59,66,68). The expected result is negative. A negative result does not rule out the presence of HPV not included in the genotype set, a low level of infection or specimen sampling error. UNLESS OTHERWISE INDICATED, ALL TESTING PERFORMED AT [facility] [address] [place] [address] DIRECTOR INTERNAL AUDIT: SUSAN YANEZ M.D. CLIA NUMBER [id number] [facility] [place] [place]. [id number] HPV HIGH IF ABNORMAL [id number] 00:00:00* Test Item Value Reference Range Interpretation Comme nts HPV HIGH IF ABNORMAL THINPRE P (test code = 86463) SEE BELOW Topher Aguillon AustinPAP TEST, THINPREP, [id number] 00:00:00* Test Item Value Reference Range Interpretation Comme nts SOURCE: (test code = 8001) Cervical/Endo cervic al SLIDES: (test code = 8011) 1 LMP: (test code = 8021) 11/18/2023 SPECIMEN ADEQUACY: (test code = 06488) (NOTE) INTERPRETATION: (test code = 13628) ASCUS/EPITH. ABNORMALITY; SEE BELOW BAKER SECOND: (test code = 8101) MAGDA Blancas(ASCP) PATHOLOGIST INTERPRETATION BY: (test code = 8122) Kate Diaz M.D. LOCATION: (test code = 43049) (NOTE) CPT: (test code = 8140) (NOTE) Topher Aguillon AustinHPV HIGH RISK WITH GENOTYPE, TP [REFLEX]2024-01-29 00:00:00* Test Item Value Reference Range Interpretation Comme nts HPV HIGH RISK INTERP (test c ode = 67750) POSITIVE HPV 16 (test code = 98003) NEGATIVE HPV 18 (test code = 16098) NEGATIVE HPV, HR, OTHER GENOTYPES (te st code = 02957) POSITIVE Topher Aguillon AustinHPV HIGH IF ABNORMAL [id number] 00:00:00* Test Item Value Reference Range Interpretation Comme nts HPV HIGH IF ABNORMAL THINPRE P (test code = 29127) SEE BELOW Topher MichelPAP TEST, THINPREP, [id number] 00:00:00* Test Item Value Reference Range Interpretation Comme nts SOURCE: (test code = 8001) Cervical/Endo cervic al SLIDES: (test code = 8011) 1 LMP: (test code = 8021) 11/18/2023 SPECIMEN ADEQUACY: (test code = 46293) (NOTE) INTERPRETATION: (test code = 55871) ASCUS/EPITH. ABNORMALITY; SEE BELOW BAKER SECOND: (test code = 8101) MAGDA Blancas(ASCP) PATHOLOGIST INTERPRETATION BY: (test code = 8122) Kate Diaz M.D. LOCATION: (test code = 84223) (NOTE) CPT: (test code = 8140) (NOTE) Topher Pal AustinHPV HIGH RISK WITH GENOTYPE, TP [REFLEX]2024-01-29 00:00:00* Test Item Value Reference Range Interpretation Comme nts HPV HIGH RISK INTERP (test c ode = 29867) POSITIVE HPV 16 (test code = 33834) NEGATIVE HPV 18 (test code = 37171) NEGATIVE HPV, HR, OTHER GENOTYPES (te st code = 60332) POSITIVE Topher Aguillon AustinHPV HIGH IF ABNORMAL [id number] 00:00:00* Test Item Value Reference Range Interpretation Comme nts HPV HIGH IF ABNORMAL THINPRE P (test code = 40682) SEE BELOW Topher Aguillon AustinPAP TEST, THINPREP, [id number] 00:00:00* Test Item Value Reference Range Interpretation Comme nts SOURCE: (test code = 8001) Cervical/Endo cervic al SLIDES: (test code = 8011) 1 LMP: (test code = 8021) 11/18/2023 SPECIMEN ADEQUACY: (test code = 37012) (NOTE) INTERPRETATION: (test code = 66474) ASCUS/EPITH. ABNORMALITY; SEE BELOW BAKER SECOND: (test code = 8101) MAGDA Blancas(ASCP) PATHOLOGIST INTERPRETATION BY: (test code = 8122) Kate Diaz M.D. LOCATION: (test code = 33042) (NOTE) CPT: (test code = 8140) (NOTE) Topher Aguillon AustinHPV HIGH RISK WITH GENOTYPE, TP [REFLEX]2024-01-29 00:00:00* Test Item Value Reference Range Interpretation Comme nts HPV HIGH RISK INTERP (test c ode = 03402) POSITIVE HPV 16 (test code = 04864) NEGATIVE HPV 18 (test code = 53020) NEGATIVE HPV, HR, OTHER GENOTYPES (te st code = 85869) POSITIVE Topher Aguillon AustinHPV HIGH IF ABNORMAL [id number] 00:00:00* Test Item Value Reference Range Interpretation Comme nts HPV HIGH IF ABNORMAL THINPRE P (test code = 27263) SEE BELOW Topher Aguillon AustinPAP TEST, THINPREP, [id number] 00:00:00* Test Item Value Reference Range Interpretation Comme nts SOURCE: (test code = 8001) Cervical/Endo cervic al SLIDES: (test code = 8011) 1 LMP: (test code = 8021) 11/18/2023 SPECIMEN ADEQUACY: (test code = 19489) (NOTE) INTERPRETATION: (test code = 08690) ASCUS/EPITH. ABNORMALITY; SEE BELOW BAKER SECOND: (test code = 8101) MAGDA Blancas(ASCP) PATHOLOGIST INTERPRETATION BY: (test code = 8122) Kate Diaz M.D. LOCATION: (test code = 57038) (NOTE) CPT: (test code = 8140) (NOTE) Topher Aguillon AustinHPV HIGH RISK WITH GENOTYPE, TP [REFLEX]2024-01-29 00:00:00* Test Item Value Reference Range Interpretation Comme nts HPV HIGH RISK INTERP (test c ode = 13595) POSITIVE HPV 16 (test code = 09539) NEGATIVE HPV 18 (test code = 28220) NEGATIVE HPV, HR, OTHER GENOTYPES (te st code = 47082) POSITIVE Topher Aguillon AustinHPV HIGH IF ABNORMAL [id number] 00:00:00* Test Item Value Reference Range Interpretation Comme nts HPV HIGH IF ABNORMAL THINPRE P (test code = 97922) SEE BELOW Topher Aguillon AustinPAP TEST, THINPREP, [id number] 00:00:00* Test Item Value Reference Range Interpretation Comme nts SOURCE: (test code = 8001) Cervical/Endo cervic al SLIDES: (test code = 8011) 1 LMP: (test code = 8021) 11/18/2023 SPECIMEN ADEQUACY: (test code = 09226) (NOTE) INTERPRETATION: (test code = 57093) ASCUS/EPITH. ABNORMALITY; SEE BELOW BAKER SECOND: (test code = 8101) MAGDA Blancas(ASCP) PATHOLOGIST INTERPRETATION BY: (test code = 8122) Kate Diaz M.D. LOCATION: (test code = 69922) (NOTE) CPT: (test code = 8140) (NOTE) Topher Aguillon AustinHPV HIGH RISK WITH GENOTYPE, TP [REFLEX]2024-01-29 00:00:00* Test Item Value Reference Range Interpretation Comme nts HPV HIGH RISK INTERP (test c ode = 13404) POSITIVE HPV 16 (test code = 14748) NEGATIVE HPV 18 (test code = 06400) NEGATIVE HPV, HR, OTHER GENOTYPES (te st code = 02005) POSITIVE Topher Aguillon AustinHPV HIGH IF ABNORMAL [id number] 00:00:00* Test Item Value Reference Range Interpretation Comme nts HPV HIGH IF ABNORMAL THINPRE P (test code = 11053) SEE BELOW Topher MichelPAP TEST, THINPREP, [id number] 00:00:00* Test Item Value Reference Range Interpretation Comme nts SOURCE: (test code = 8001) Cervical/Endo cervic al SLIDES: (test code = 8011) 1 LMP: (test code = 8021) 11/18/2023 SPECIMEN ADEQUACY: (test code = 70904) (NOTE) INTERPRETATION: (test code = 10555) ASCUS/EPITH. ABNORMALITY; SEE BELOW BAKER SECOND: (test code = 8101) MAGDA Blancas(ASCP) PATHOLOGIST INTERPRETATION BY: (test code = 8122) Kate Diaz M.D. LOCATION: (test code = [facility]) (NOTE) CPT: (test code = 8140) (NOTE) Topher MichelHPV HIGH RISK WITH GENOTYPE, TP [REFLEX]2024-01-29 00:00:00* Test Item Value Reference Range Interpretation Comme nts HPV HIGH RISK INTERP (test c ode = 16721) POSITIVE HPV 16 (test code = 58474) NEGATIVE HPV 18 (test code = 70154) NEGATIVE HPV, HR, OTHER GENOTYPES (te st code = 03381) POSITIVE Topher Aguillon AustinHPV HIGH IF ABNORMAL [id number] 00:00:00* Test Item Value Reference Range Interpretation Comme nts HPV HIGH IF ABNORMAL THINPRE P (test code = 00557) SEE BELOW Topehr MichelPAP TEST, THINPREP, [id number] 00:00:00* Test Item Value Reference Range Interpretation Comme nts SOURCE: (test code = 8001) Cervical/Endo cervic al SLIDES: (test code = 8011) 1 LMP: (test code = 8021) 11/18/2023 SPECIMEN ADEQUACY: (test code = 77039) (NOTE) INTERPRETATION: (test code = 61154) ASCUS/EPITH. ABNORMALITY; SEE BELOW BAKER SECOND: (test code = 8101) Jyotsna Barron, CT(ASCP) PATHOLOGIST INTERPRETATION BY: (test code = 8122) Kate Diaz M.D. LOCATION: (test code = 87894) (NOTE) CPT: (test code = 8140) (NOTE) Topher MichelHPV HIGH RISK WITH GENOTYPE, TP [REFLEX]2024-01-29 00:00:00* Test Item Value Reference Range Interpretation Comme nts HPV HIGH RISK INTERP (test c ode = 96198) POSITIVE HPV 16 (test code = 52158) NEGATIVE HPV 18 (test code = 03365) NEGATIVE HPV, HR, OTHER GENOTYPES (te st code = 16147) POSITIVE Topher Aguillon AustinVAGINAL PATHOGENS DNA [id number] 12:39:50* Test Item Value Reference Range Interpretation Comme nts BROOKE SPECIES (test code = 58544) NEGATIVE NEGATIVE G. VAGINALIS (test code = ) POSITIVE NEGATIVE A T. VAGINALIS (test code = ) NEGATIVE NEGATIVE Note: The [employer] VPIII Microbial Identification Testis a DNA probe test intended for use in the detectionand identification of Brooke species, Gardnerellavaginalis and Trichomonas vaginalis nucleic acid. [id number] 05:20:19* Test Item Value Reference Range Interpretation Comme nts RPR RESULT (test code = 3501) NON-REACTIVE NON-REACTIVE RPR TITER (test code = 3500) NOT INDIC. TITER NOT INDIC. UNLESS OTHERWISE INDICATED, ALL TESTING PERFORMED AT [facility] [address] [place] [address] DIRECTOR INTERNAL AUDIT: SUSAN YANEZ M.D. CLIA NUMBER [id number] [facility] [place]. [id number] HIV 1/2 4TH GEN, RFLX [id number] 03:33:35* Test Item Value Reference Range Interpretation Comme nts HIV 1/2 4TH GEN, RFLX CONF ( test code = 3514) NON-REACTIVE NON-REACTIVE HEPATITIS PANEL, [id number] 03:33:35* Test Item Value Reference Range Interpretation Comme nts HEPATITIS A IgM (test code = 75552) NON-REACTIVE NON-REACTIVE HEPATITIS B CORE IgM (test code = 4644) NON-REACTIVE NON-REACTIVE HEPATITIS B SURF AG (test code = 2739) NON-REACTIVE NON-REACTIVE HEPATITIS C ANTIBODY (test code = 4675) NON-REACTIVE NON-REACTIVE INTERPRETATION HEPATITIS A: (test code = 2552) (NOTE) Hepatitis A serology shows no evidence of acute hepatitis A. INTERPRETATION HEPATITIS B: (test code = 42482) (NOTE) Hepatitis B serology shows no evidence of acute hepatitis B andno indication of exposure to hepatitis B virus in the previous raegan eight months. INTERPRETATION HEPATITIS C: (test code = 61133) (NOTE) Hepatitis C serology shows no evidence of exposure to hepatitisC virus at this time. It can take up to 12 months after exposure tothe hepatitis C virus for antibodies to become detectable in the blood in certain patients. VAGINAL PATHOGENS DNA [id number] 00:00:00* Test Item Value Reference Range Interpretation Comme nts BROOKE SPECIES (test code = ) NEGATIVE G. VAGINALIS (test code = ) POSITIVE T. VAGINALIS (test code = 20772) NEGATIVE Topher MichelHIV 1/2 4TH GEN, RFLX [id number] 00:00:00* Test Item Value Reference Range Interpretation Comme nts HIV 1/2 4TH GEN, RFLX CONF ( test code = 3514) NON-REACTIVE Topher MichelACUTE HEPATITIS [id number] 00:00:00* Test Item Value Reference Range Interpretation Comme nts HEPATITIS A IgM (test code = 30145) NON-REACTIVE HEPATITIS B CORE IgM (test c ode = 4644) NON-REACTIVE HEPATITIS B SURF AG (test co de = 2739) NON-REACTIVE HEPATITIS C ANTIBODY (test c ode = 4675) NON-REACTIVE INTERPRETATION HEPATITIS A: (test code = 2552) (NOTE) INTERPRETATION HEPATITIS B: (test code = 57030) (NOTE) INTERPRETATION HEPATITIS C: (test code = 78121) (NOTE) Topher [id number] 00:00:00* Test Item Value Reference Range Interpretation Comme nts RPR RESULT (test code = 3501) NON-REACTIVE RPR TITER (test code = 3500) NOT INDIC. TITER Tpoher MichelVAGINAL PATHOGENS DNA [id number] 00:00:00* Test Item Value Reference Range Interpretation Comme nts BROOKE SPECIES (test code = ) NEGATIVE G. VAGINALIS (test code = 71776) POSITIVE T. VAGINALIS (test code = 55432) NEGATIVE Topher MichelHIV 1/2 4TH GEN, RFLX [id number] 00:00:00* Test Item Value Reference Range Interpretation Comme nts HIV 1/2 4TH GEN, RFLX CONF ( test code = 3514) NON-REACTIVE Topher MichelACUTE HEPATITIS [id number] 00:00:00* Test Item Value Reference Range Interpretation Comme nts HEPATITIS A IgM (test code = 02001) NON-REACTIVE HEPATITIS B CORE IgM (test c ode = 4644) NON-REACTIVE HEPATITIS B SURF AG (test co de = 2739) NON-REACTIVE HEPATITIS C ANTIBODY (test c ode = 4675) NON-REACTIVE INTERPRETATION HEPATITIS A: (test code = 2552) (NOTE) INTERPRETATION HEPATITIS B: (test code = 79868) (NOTE) INTERPRETATION HEPATITIS C: (test code = 37923) (NOTE) Topher [id number] 00:00:00* Test Item Value Reference Range Interpretation Comme nts RPR RESULT (test code = 3501) NON-REACTIVE RPR TITER (test code = 3500) NOT INDIC. TITER Topher MichelVAGINAL PATHOGENS DNA [id number] 00:00:00* Test Item Value Reference Range Interpretation Comme nts BROOKE SPECIES (test code = 31889) NEGATIVE G. VAGINALIS (test code = 93511) POSITIVE T. VAGINALIS (test code = 74431) NEGATIVE Topher MichelHIV 1/2 4TH GEN, RFLX [id number] 00:00:00* Test Item Value Reference Range Interpretation Comme nts HIV 1/2 4TH GEN, RFLX CONF ( test code = 3514) NON-REACTIVE Topher MichelACUTE HEPATITIS [id number] 00:00:00* Test Item Value Reference Range Interpretation Comme nts HEPATITIS A IgM (test code = 67275) NON-REACTIVE HEPATITIS B CORE IgM (test c ode = 4644) NON-REACTIVE HEPATITIS B SURF AG (test co de = 2739) NON-REACTIVE HEPATITIS C ANTIBODY (test c ode = 4675) NON-REACTIVE INTERPRETATION HEPATITIS A: (test code = 2552) (NOTE) INTERPRETATION HEPATITIS B: (test code = 69784) (NOTE) INTERPRETATION HEPATITIS C: (test code = 12082) (NOTE) Topher [id number] 00:00:00* Test Item Value Reference Range Interpretation Comme nts RPR RESULT (test code = 3501) NON-REACTIVE RPR TITER (test code = 3500) NOT INDIC. TITER Topher Aguillon AustinVAGINAL PATHOGENS DNA [id number] 00:00:00* Test Item Value Reference Range Interpretation Comme nts BROOKE SPECIES (test code = 44447) NEGATIVE G. VAGINALIS (test code = 08043) POSITIVE T. VAGINALIS (test code = 82639) NEGATIVE Topher MichelHIV 1/2 4TH GEN, RFLX [id number] 00:00:00* Test Item Value Reference Range Interpretation Comme nts HIV 1/2 4TH GEN, RFLX CONF ( test code = 3514) NON-REACTIVE Topher MichelACUTE HEPATITIS [id number] 00:00:00* Test Item Value Reference Range Interpretation Comme nts HEPATITIS A IgM (test code = 46612) NON-REACTIVE HEPATITIS B CORE IgM (test c ode = 4644) NON-REACTIVE HEPATITIS B SURF AG (test co de = 2739) NON-REACTIVE HEPATITIS C ANTIBODY (test c ode = 4675) NON-REACTIVE INTERPRETATION HEPATITIS A: (test code = 2552) (NOTE) INTERPRETATION HEPATITIS B: (test code = 51235) (NOTE) INTERPRETATION HEPATITIS C: (test code = 64092) (NOTE) Topher [id number] 00:00:00* Test Item Value Reference Range Interpretation Comme nts RPR RESULT (test code = 3501) NON-REACTIVE RPR TITER (test code = 3500) NOT INDIC. TITER Topher Aguillon AustinVAGINAL PATHOGENS DNA [id number] 00:00:00* Test Item Value Reference Range Interpretation Comme nts BROOKE SPECIES (test code = 52051) NEGATIVE G. VAGINALIS (test code = 64411) POSITIVE T. VAGINALIS (test code = 19003) NEGATIVE Topher Aguillon AustinHIV 1/2 4TH GEN, RFLX [id number] 00:00:00* Test Item Value Reference Range Interpretation Comme nts HIV 1/2 4TH GEN, RFLX CONF ( test code = 3514) NON-REACTIVE Topher MichelACUTE HEPATITIS [id number] 00:00:00* Test Item Value Reference Range Interpretation Comme nts HEPATITIS A IgM (test code = 11145) NON-REACTIVE HEPATITIS B CORE IgM (test c ode = 4644) NON-REACTIVE HEPATITIS B SURF AG (test co de = 2739) NON-REACTIVE HEPATITIS C ANTIBODY (test c ode = 4675) NON-REACTIVE INTERPRETATION HEPATITIS A: (test code = 2552) (NOTE) INTERPRETATION HEPATITIS B: (test code = 14034) (NOTE) INTERPRETATION HEPATITIS C: (test code = 93400) (NOTE) Topher [id number] 00:00:00* Test Item Value Reference Range Interpretation Comme nts RPR RESULT (test code = 3501) NON-REACTIVE RPR TITER (test code = 3500) NOT INDIC. TITER Topher MichelVAGINAL PATHOGENS DNA [id number] 00:00:00* Test Item Value Reference Range Interpretation Comme nts BROOKE SPECIES (test code = ) NEGATIVE G. VAGINALIS (test code = ) POSITIVE T. VAGINALIS (test code = ) NEGATIVE Topher MichelHIV 1/2 4TH GEN, RFLX [id number] 00:00:00* Test Item Value Reference Range Interpretation Comme nts HIV 1/2 4TH GEN, RFLX CONF ( test code = 3514) NON-REACTIVE Topher MichelACUTE HEPATITIS [id number] 00:00:00* Test Item Value Reference Range Interpretation Comme nts HEPATITIS A IgM (test code = 81663) NON-REACTIVE HEPATITIS B CORE IgM (test c ode = 4644) NON-REACTIVE HEPATITIS B SURF AG (test co de = 2739) NON-REACTIVE HEPATITIS C ANTIBODY (test c ode = 4675) NON-REACTIVE INTERPRETATION HEPATITIS A: (test code = 2552) (NOTE) INTERPRETATION HEPATITIS B: (test code = 81533) (NOTE) INTERPRETATION HEPATITIS C: (test code = 65524) (NOTE) Topher [id number] 00:00:00* Test Item Value Reference Range Interpretation Comme nts RPR RESULT (test code = 3501) NON-REACTIVE RPR TITER (test code = 3500) NOT INDIC. TITER Topher MichelVAGINAL PATHOGENS DNA [id number] 00:00:00* Test Item Value Reference Range Interpretation Comme nts BROOKE SPECIES (test code = ) NEGATIVE G. VAGINALIS (test code = 16309) POSITIVE T. VAGINALIS (test code = 21031) NEGATIVE Topher MichelHIV 1/2 4TH GEN, RFLX [id number] 00:00:00* Test Item Value Reference Range Interpretation Comme nts HIV 1/2 4TH GEN, RFLX CONF ( test code = 3514) NON-REACTIVE Topher MichelACUTE HEPATITIS [id number] 00:00:00* Test Item Value Reference Range Interpretation Comme nts HEPATITIS A IgM (test code = 96524) NON-REACTIVE HEPATITIS B CORE IgM (test c ode = 4644) NON-REACTIVE HEPATITIS B SURF AG (test co de = 2739) NON-REACTIVE HEPATITIS C ANTIBODY (test c ode = 4675) NON-REACTIVE INTERPRETATION HEPATITIS A: (test code = 2552) (NOTE) INTERPRETATION HEPATITIS B: (test code = 93125) (NOTE) INTERPRETATION HEPATITIS C: (test code = 79207) (NOTE) Topher [id number] 00:00:00* Test Item Value Reference Range Interpretation Comme nts RPR RESULT (test code = 3501) NON-REACTIVE RPR TITER (test code = 3500) NOT INDIC. TITER Topher Juarez, [id number] 14:23:44SPECIMEN NUMBER: [id number] CULTURE, URINE SPECIMEN NUMBER: [id number] SOURCE: URINE REPORT STATUS: FINAL ISOLATE NUMBER 1: IDENTIFICATION: 12/16/2023 10-50,000 CFU/ML STREPTOCOCCUS AGALACTIAE (GROUP B) ADDITIONAL OBSERVATIONS: PENICILLIN AND AMPICILLIN ARE DRUGS OF CHOICE FOR TREATMENT OF B-HEMOLYTIC STREPTOCOCCAL INFECTIONS. SUSCEPTIBILITY TESTING OF PENICILLIN AND OTHER B-LACTAMS APPROVED BY [facility] FOR TREATMENT OF B-HEMOLYTIC STREPTOCOCCAL INFECTIONS NEED NOT BE PERFORMED ROUTINELY. UNLESS OTHERWISE INDICATED, ALL TESTING PERFORMED AT [facility] [address] [place] [address] DIRECTOR INTERNAL AUDIT: SUSAN YANEZ M.D. CLIA NUMBER [id number] [facility] [place]. [id number], [id number] 00:00:00* Test Item Value Reference Range Interpretation Comme nts CULTURE, URINE (test code = 53088) SPECIMEN NUMBER: [id number] Topher Juarez, [id number] 00:00:00* Test Item Value Reference Range Interpretation Comme nts CULTURE, URINE (test code = 82720) SPECIMEN NUMBER: [id number] Topher WellsLTURE, [id number] 00:00:00* Test Item Value Reference Range Interpretation Comme nts CULTURE, URINE (test code = 82751) SPECIMEN NUMBER: [id number] Topher WellsLTURE, [id number] 00:00:00* Test Item Value Reference Range Interpretation Comme nts CULTURE, URINE (test code = 09338) SPECIMEN NUMBER: [id number] Topher WellsLTURE, [id number] 00:00:00* Test Item Value Reference Range Interpretation Comme nts CULTURE, URINE (test code = 27288) SPECIMEN NUMBER: [id number] Topher WellsLTURE, [id number] 00:00:00* Test Item Value Reference Range Interpretation Comme nts CULTURE, URINE (test code = 37852) SPECIMEN NUMBER: [id number] Topher WellsLTURE, [id number] 00:00:00* Test Item Value Reference Range Interpretation Comme nts CULTURE, URINE (test code = 56278) SPECIMEN NUMBER: [id number] Topher MichelTRICHOMONAS, URINE, [id number] 00:00:00* Test Item Value Reference Range Interpretation Comme nts TRICHOMONAS, NAAT, URINE (te st code = 05390) NEGATIVE Topher Aguillon AustinCT/NG, TMA, [id number] 00:00:00* Test Item Value Reference Range Interpretation Comme nts CHLAMYDIA, NAAT, URINE (test code = 25440) NEGATIVE GONORRHEA, NAAT, URINE (test code = 58449) NEGATIVE Topher Aguillon AustinTRICHOMONAS, URINE, [id number] 00:00:00* Test Item Value Reference Range Interpretation Comme nts TRICHOMONAS, NAAT, URINE (te st code = 84965) NEGATIVE Topher Aguillon AustinCT/NG, TMA, [id number] 00:00:00* Test Item Value Reference Range Interpretation Comme nts CHLAMYDIA, NAAT, URINE (test code = 63262) NEGATIVE GONORRHEA, NAAT, URINE (test code = 25537) NEGATIVE Topher F AustinTRICHOMONAS, URINE, [id number] 00:00:00* Test Item Value Reference Range Interpretation Comme nts TRICHOMONAS, NAAT, URINE (te st code = 78690) NEGATIVE Topher F AustinCT/NG, TMA, [id number] 00:00:00* Test Item Value Reference Range Interpretation Comme nts CHLAMYDIA, NAAT, URINE (test code = 42613) NEGATIVE GONORRHEA, NAAT, URINE (test code = 52267) NEGATIVE Topher Pal AustinTRICHOMONAS, URINE, [id number] 00:00:00* Test Item Value Reference Range Interpretation Comme nts TRICHOMONAS, NAAT, URINE (te st code = 64849) NEGATIVE Topher F AustinCT/NG, TMA, [id number] 00:00:00* Test Item Value Reference Range Interpretation Comme nts CHLAMYDIA, NAAT, URINE (test code = 00941) NEGATIVE GONORRHEA, NAAT, URINE (test code = 20039) NEGATIVE Topher F AustinTRICHOMONAS, URINE, [id number] 00:00:00* Test Item Value Reference Range Interpretation Comme nts TRICHOMONAS, NAAT, URINE (te st code = 20207) NEGATIVE Topher F AustinCT/NG, TMA, [id number] 00:00:00* Test Item Value Reference Range Interpretation Comme nts CHLAMYDIA, NAAT, URINE (test code = 34182) NEGATIVE GONORRHEA, NAAT, URINE (test code = 92433) NEGATIVE Topher Pal AustinTRICHOMONAS, URINE, [id number] 00:00:00* Test Item Value Reference Range Interpretation Comme nts TRICHOMONAS, NAAT, URINE (te st code = 15937) NEGATIVE Topher F AustinCT/NG, TMA, [id number] 00:00:00* Test Item Value Reference Range Interpretation Comme nts CHLAMYDIA, NAAT, URINE (test code = 72100) NEGATIVE GONORRHEA, NAAT, URINE (test code = 19239) NEGATIVE Topher F AustinTRICHOMONAS, URINE, [id number] 00:00:00* Test Item Value Reference Range Interpretation Comme nts TRICHOMONAS, NAAT, URINE (te st code = 86997) NEGATIVE Topher F AustinCT/NG, TMA, [id number] 00:00:00* Test Item Value Reference Range Interpretation Comme nts CHLAMYDIA, NAAT, URINE (test code = 07004) NEGATIVE GONORRHEA, NAAT, URINE (test code = 24040) NEGATIVE Topher F AustinTRICHOMONAS, URINE, [id number] 00:00:00* Test Item Value Reference Range Interpretation Comme nts TRICHOMONAS, NAAT, URINE (test code = 43949) TEST NOT PERFORMED Topher F AustinCT/NG, TMA, [id number] 00:00:00* Test Item Value Reference Range Interpretation Comme nts CHLAMYDIA, NAAT, URINE (test code = 37884) TEST NOT PERFORMED GONORRHEA, NAAT, URINE (test code = 98961) TEST NOT PERFORMED Topher F AustinTRICHOMONAS, URINE, [id number] 00:00:00* Test Item Value Reference Range Interpretation Comme nts TRICHOMONAS, NAAT, URINE (test code = 51756) TEST NOT PERFORMED Topher F AustinCT/NG, TMA, [id number] 00:00:00* Test Item Value Reference Range Interpretation Comme nts CHLAMYDIA, NAAT, URINE (test code = 81757) TEST NOT PERFORMED GONORRHEA, NAAT, URINE (test code = 65335) TEST NOT PERFORMED Topher F AustinTRICHOMONAS, URINE, [id number] 00:00:00* Test Item Value Reference Range Interpretation Comme nts TRICHOMONAS, NAAT, URINE (test code = 23301) TEST NOT PERFORMED Topher F AustinCT/NG, TMA, [id number] 00:00:00* Test Item Value Reference Range Interpretation Comme nts CHLAMYDIA, NAAT, URINE (test code = 06484) TEST NOT PERFORMED GONORRHEA, NAAT, URINE (test code = 04102) TEST NOT PERFORMED Topher F AustinTRICHOMONAS, URINE, [id number] 00:00:00* Test Item Value Reference Range Interpretation Comme nts TRICHOMONAS, NAAT, URINE (test code = 22220) TEST NOT PERFORMED Topher F AustinCT/NG, TMA, [id number] 00:00:00* Test Item Value Reference Range Interpretation Comme nts CHLAMYDIA, NAAT, URINE (test code = 55327) TEST NOT PERFORMED GONORRHEA, NAAT, URINE (test code = 25016) TEST NOT PERFORMED Topher F AustinTRICHOMONAS, URINE, [id number] 00:00:00* Test Item Value Reference Range Interpretation Comme nts TRICHOMONAS, NAAT, URINE (test code = 56548) TEST NOT PERFORMED Topher F AustinCT/NG, TMA, [id number] 00:00:00* Test Item Value Reference Range Interpretation Comme nts CHLAMYDIA, NAAT, URINE (test code = 89072) TEST NOT PERFORMED GONORRHEA, NAAT, URINE (test code = 85398) TEST NOT PERFORMED Topher F AustinTRICHOMONAS, URINE, [id number] 00:00:00* Test Item Value Reference Range Interpretation Comme nts TRICHOMONAS, NAAT, URINE (test code = 86529) TEST NOT PERFORMED Topher F AustinCT/NG, TMA, [id number] 00:00:00* Test Item Value Reference Range Interpretation Comme nts CHLAMYDIA, NAAT, URINE (test code = 86377) TEST NOT PERFORMED GONORRHEA, NAAT, URINE (test code = 89149) TEST NOT PERFORMED Topher F AustinTRICHOMONAS, URINE, [id number] 00:00:00* Test Item Value Reference Range Interpretation Comme nts TRICHOMONAS, NAAT, URINE (test code = 44166) TEST NOT PERFORMED Topher F AustinCT/NG, TMA, [id number] 00:00:00* Test Item Value Reference Range Interpretation Comme nts CHLAMYDIA, NAAT, URINE (test code = 82434) TEST NOT PERFORMED GONORRHEA, NAAT, URINE (test code = 95778) TEST NOT PERFORMED Topher F AustinVAGINAL PATHOGENS DNA [id number] 00:00:00* Test Item Value Reference Range Interpretation Comme nts BROOKE SPECIES (test code = 03472) NEGATIVE G. VAGINALIS (test code = 46646) POSITIVE T. VAGINALIS (test code = 97661) NEGATIVE Topher Aguillon AustinHIV 1/2 4TH GEN, RFLX [id number] 00:00:00* Test Item Value Reference Range Interpretation Comme nts HIV 1/2 4TH GEN, RFLX CONF ( test code = 3514) NON-REACTIVE Topher Pal [id number] 00:00:00* Test Item Value Reference Range Interpretation Comme nts RPR RESULT (test code = 3501) NON-REACTIVE RPR TITER (test code = 3500) NOT INDIC. TITER Topher ConroyPES SIMPLEX [id number] 00:00:00* Test Item Value Reference Range Interpretation Comme nts HERPES SIMPLEX AB, IgM (test code = 79453) 0.73 INDEX Topher MichelHERPES SIMPLEX 1/2 [id number] 00:00:00* Test Item Value Reference Range Interpretation Comme nts HERPES SIMPLEX 1 AB, IgG (te st code = 31795) 20.300 INDEX HERPES SIMPLEX 2 AB, IgG (te st code = 36630) 0.065 INDEX Topher MichelVAGINAL PATHOGENS DNA [id number] 00:00:00* Test Item Value Reference Range Interpretation Comme nts BROOKE SPECIES (test code = ) NEGATIVE G. VAGINALIS (test code = ) POSITIVE T. VAGINALIS (test code = ) NEGATIVE Topher MichelHIV 1/2 4TH GEN, RFLX [id number] 00:00:00* Test Item Value Reference Range Interpretation Comme nts HIV 1/2 4TH GEN, RFLX CONF ( test code = 3514) NON-REACTIVE Topher [id number] 00:00:00* Test Item Value Reference Range Interpretation Comme nts RPR RESULT (test code = 3501) NON-REACTIVE RPR TITER (test code = 3500) NOT INDIC. TITER Topher ConroyPES SIMPLEX [id number] 00:00:00* Test Item Value Reference Range Interpretation Comme nts HERPES SIMPLEX AB, IgM (test code = 36916) 0.73 INDEX Topher MichelHERPES SIMPLEX 1/2 [id number] 00:00:00* Test Item Value Reference Range Interpretation Comme nts HERPES SIMPLEX 1 AB, IgG (te st code = 40489) 20.300 INDEX HERPES SIMPLEX 2 AB, IgG (te st code = 18340) 0.065 INDEX Topher MichelVAGINAL PATHOGENS DNA [id number] 00:00:00* Test Item Value Reference Range Interpretation Comme nts BROOKE SPECIES (test code = 02540) NEGATIVE G. VAGINALIS (test code = 87903) POSITIVE T. VAGINALIS (test code = 14964) NEGATIVE Topher MichelHIV 1/2 4TH GEN, RFLX [id number] 00:00:00* Test Item Value Reference Range Interpretation Comme nts HIV 1/2 4TH GEN, RFLX CONF ( test code = 3514) NON-REACTIVE Topher [id number] 00:00:00* Test Item Value Reference Range Interpretation Comme nts RPR RESULT (test code = 3501) NON-REACTIVE RPR TITER (test code = 3500) NOT INDIC. TITER Topher MichelHERPES SIMPLEX [id number] 00:00:00* Test Item Value Reference Range Interpretation Comme nts HERPES SIMPLEX AB, IgM (test code = 56406) 0.73 INDEX Topher MichelHERPES SIMPLEX 1/2 [id number] 00:00:00* Test Item Value Reference Range Interpretation Comme nts HERPES SIMPLEX 1 AB, IgG (te st code = 59308) 20.300 INDEX HERPES SIMPLEX 2 AB, IgG (te st code = 31993) 0.065 INDEX Topher MichelVAGINAL PATHOGENS DNA [id number] 00:00:00* Test Item Value Reference Range Interpretation Comme nts BROOKE SPECIES (test code = 60111) NEGATIVE G. VAGINALIS (test code = 78129) POSITIVE T. VAGINALIS (test code = 39771) NEGATIVE Topher MichelHIV 1/2 4TH GEN, RFLX [id number] 00:00:00* Test Item Value Reference Range Interpretation Comme nts HIV 1/2 4TH GEN, RFLX CONF ( test code = 3514) NON-REACTIVE Topher [id number] 00:00:00* Test Item Value Reference Range Interpretation Comme nts RPR RESULT (test code = 3501) NON-REACTIVE RPR TITER (test code = 3500) NOT INDIC. TITER Topher MichelHERPES SIMPLEX [id number] 00:00:00* Test Item Value Reference Range Interpretation Comme nts HERPES SIMPLEX AB, IgM (test code = 25178) 0.73 INDEX Topher MichelHERPES SIMPLEX 1/2 [id number] 00:00:00* Test Item Value Reference Range Interpretation Comme nts HERPES SIMPLEX 1 AB, IgG (te st code = 52732) 20.300 INDEX HERPES SIMPLEX 2 AB, IgG (te st code = 21314) 0.065 INDEX Topher MichelVAGINAL PATHOGENS DNA [id number] 00:00:00* Test Item Value Reference Range Interpretation Comme nts BROOKE SPECIES (test code = ) NEGATIVE G. VAGINALIS (test code = 58938) POSITIVE T. VAGINALIS (test code = 91829) NEGATIVE Topher MichelHIV 1/2 4TH GEN, RFLX [id number] 00:00:00* Test Item Value Reference Range Interpretation Comme nts HIV 1/2 4TH GEN, RFLX CONF ( test code = 3514) NON-REACTIVE Topher Aguillon [id number] 00:00:00* Test Item Value Reference Range Interpretation Comme nts RPR RESULT (test code = 3501) NON-REACTIVE RPR TITER (test code = 3500) NOT INDIC. TITER Topher MichelHERPES SIMPLEX [id number] 00:00:00* Test Item Value Reference Range Interpretation Comme nts HERPES SIMPLEX AB, IgM (test code = 88997) 0.73 INDEX Topher MichelHERPES SIMPLEX 1/2 [id number] 00:00:00* Test Item Value Reference Range Interpretation Comme nts HERPES SIMPLEX 1 AB, IgG (te st code = 09440) 20.300 INDEX HERPES SIMPLEX 2 AB, IgG (te st code = 34072) 0.065 INDEX Topher MichelVAGINAL PATHOGENS DNA [id number] 00:00:00* Test Item Value Reference Range Interpretation Comme nts BROOKE SPECIES (test code = ) NEGATIVE G. VAGINALIS (test code = 60365) POSITIVE T. VAGINALIS (test code = ) NEGATIVE Topher MichelHIV 1/2 4TH GEN, RFLX [id number] 00:00:00* Test Item Value Reference Range Interpretation Comme nts HIV 1/2 4TH GEN, RFLX CONF ( test code = 3514) NON-REACTIVE Topher Aguillon [id number] 00:00:00* Test Item Value Reference Range Interpretation Comme nts RPR RESULT (test code = 3501) NON-REACTIVE RPR TITER (test code = 3500) NOT INDIC. TITER Topher MichelHERPES SIMPLEX [id number] 00:00:00* Test Item Value Reference Range Interpretation Comme nts HERPES SIMPLEX AB, IgM (test code = 40818) 0.73 INDEX Topher MichelHERPES SIMPLEX 1/2 [id number] 00:00:00* Test Item Value Reference Range Interpretation Comme nts HERPES SIMPLEX 1 AB, IgG (te st code = 12022) 20.300 INDEX HERPES SIMPLEX 2 AB, IgG (te st code = 83283) 0.065 INDEX Topher MichelVAGINAL PATHOGENS DNA [id number] 00:00:00* Test Item Value Reference Range Interpretation Comme nts BROOKE SPECIES (test code = 85500) NEGATIVE G. VAGINALIS (test code = 02743) POSITIVE T. VAGINALIS (test code = 30249) NEGATIVE Topher MichelHIV 1/2 4TH GEN, RFLX [id number] 00:00:00* Test Item Value Reference Range Interpretation Comme aixa HIV 1/2 4TH GEN, RFLX CONF ( test code = 3514) NON-REACTIVE Topher [id number] 00:00:00* Test Item Value Reference Range Interpretation Comme nts RPR RESULT (test code = 3501) NON-REACTIVE RPR TITER (test code = 3500) NOT INDIC. TITER Topher MichelHERPES SIMPLEX [id number] 00:00:00* Test Item Value Reference Range Interpretation Comme aixa HERPES SIMPLEX AB, IgM (test code = 83514) 0.73 INDEX Topher MichelHERPES SIMPLEX 1/2 [id number] 00:00:00* Test Item Value Reference Range Interpretation Comme nts HERPES SIMPLEX 1 AB, IgG (te st code = 99615) 20.300 INDEX HERPES SIMPLEX 2 AB, IgG (te st code = 74123) 0.065 INDEX Topher MichelHIV 1/2 4TH GEN, RFLX [id number] 01:43:43* Test Item Value Reference Range Interpretation Comme nts HIV 1/2 4TH GEN, RFLX CONF ( test code = 3514) NON-REACTIVE NON-REACTIVE HEPATITIS PANEL, [id number] 01:43:43* Test Item Value Reference Range Interpretation Comme nts HEPATITIS A IgM (test code = 81005) NON-REACTIVE NON-REACTIVE HEPATITIS B CORE IgM (test code = 4644) NON-REACTIVE NON-REACTIVE HEPATITIS B SURF AG (test code = 2739) NON-REACTIVE NON-REACTIVE HEPATITIS C ANTIBODY (test code = 4675) NON-REACTIVE NON-REACTIVE INTERPRETATION HEPATITIS A: (test code = 2552) (NOTE) Hepatitis A serology shows no evidence of acute hepatitis A. INTERPRETATION HEPATITIS B: (test code = 46289) (NOTE) Hepatitis B serology shows no evidence of acute hepatitis B andno indication of exposure to hepatitis B virus in the previous raegan eight months. INTERPRETATION HEPATITIS C: (test code = 58958) (NOTE) Hepatitis C serology shows no evidence of exposure to hepatitisC virus at this time. It can take up to 12 months after exposure tothe hepatitis C virus for antibodies to become detectable in the blood in certain patients. RPR REFLEX TO T. PALLIDUM - [id number] 00:18:34* Test Item Value Reference Range Interpretation Comme nts RPR (test code = 10378) NON-REACTIVE NON-REACTIVE RPR TITER (test code = 3500) NOT INDIC. TITER NOT INDIC. HIV 1/2 4TH GEN, RFLX [id number] 00:00:00* Test Item Value Reference Range Interpretation Comme nts HIV 1/2 4TH GEN, RFLX CONF ( test code = 3514) NON-REACTIVE Topher Aguillon AustinRPR REFLEX TO T. PALLIDUM - [id number] 00:00:00* Test Item Value Reference Range Interpretation Comme nts RPR (test code = 41453) NON-REACTIVE RPR TITER (test code = 3500) NOT INDIC. TITER Topher MichelACUTE HEPATITIS [id number] 00:00:00* Test Item Value Reference Range Interpretation Comme nts HEPATITIS A IgM (test code = 23640) NON-REACTIVE HEPATITIS B CORE IgM (test c ode = 4644) NON-REACTIVE HEPATITIS B SURF AG (test co de = 2739) NON-REACTIVE HEPATITIS C ANTIBODY (test c ode = 4675) NON-REACTIVE INTERPRETATION HEPATITIS A: (test code = 2552) (NOTE) INTERPRETATION HEPATITIS B: (test code = 75845) (NOTE) INTERPRETATION HEPATITIS C: (test code = 96446) (NOTE) Topher MichelHIV 1/2 4TH GEN, RFLX [id number] 00:00:00* Test Item Value Reference Range Interpretation Comme nts HIV 1/2 4TH GEN, RFLX CONF ( test code = 3514) NON-REACTIVE Topher Aguillon AustinRPR REFLEX TO T. PALLIDUM - [id number] 00:00:00* Test Item Value Reference Range Interpretation Comme nts RPR (test code = 61948) NON-REACTIVE RPR TITER (test code = 3500) NOT INDIC. TITER Topher Aguillon AustinACUTE HEPATITIS [id number] 00:00:00* Test Item Value Reference Range Interpretation Comme nts HEPATITIS A IgM (test code = 13159) NON-REACTIVE HEPATITIS B CORE IgM (test c ode = 4644) NON-REACTIVE HEPATITIS B SURF AG (test co de = 2739) NON-REACTIVE HEPATITIS C ANTIBODY (test c ode = 4675) NON-REACTIVE INTERPRETATION HEPATITIS A: (test code = 2552) (NOTE) INTERPRETATION HEPATITIS B: (test code = 73240) (NOTE) INTERPRETATION HEPATITIS C: (test code = 99421) (NOTE) Topher Aguillon AustinHIV 1/2 4TH GEN, RFLX [id number] 00:00:00* Test Item Value Reference Range Interpretation Comme nts HIV 1/2 4TH GEN, RFLX CONF ( test code = 3514) NON-REACTIVE Topher Aguillon AustinRPR REFLEX TO T. PALLIDUM - [id number] 00:00:00* Test Item Value Reference Range Interpretation Comme nts RPR (test code = 85415) NON-REACTIVE RPR TITER (test code = 3500) NOT INDIC. TITER Topher Aguillon AustinACUTE HEPATITIS [id number] 00:00:00* Test Item Value Reference Range Interpretation Comme nts HEPATITIS A IgM (test code = 48910) NON-REACTIVE HEPATITIS B CORE IgM (test c ode = 4644) NON-REACTIVE HEPATITIS B SURF AG (test co de = 2739) NON-REACTIVE HEPATITIS C ANTIBODY (test c ode = 4675) NON-REACTIVE INTERPRETATION HEPATITIS A: (test code = 2552) (NOTE) INTERPRETATION HEPATITIS B: (test code = 57716) (NOTE) INTERPRETATION HEPATITIS C: (test code = 65652) (NOTE) Topher Aguillon AustinHIV 1/2 4TH GEN, RFLX [id number] 00:00:00* Test Item Value Reference Range Interpretation Comme nts HIV 1/2 4TH GEN, RFLX CONF ( test code = 3514) NON-REACTIVE Topher Aguillon AustinRPR REFLEX TO T. PALLIDUM - [id number] 00:00:00* Test Item Value Reference Range Interpretation Comme nts RPR (test code = 25814) NON-REACTIVE RPR TITER (test code = 3500) NOT INDIC. TITER Topher Aguillon AustinACUTE HEPATITIS [id number] 00:00:00* Test Item Value Reference Range Interpretation Comme nts HEPATITIS A IgM (test code = 85280) NON-REACTIVE HEPATITIS B CORE IgM (test c ode = 4644) NON-REACTIVE HEPATITIS B SURF AG (test co de = 2739) NON-REACTIVE HEPATITIS C ANTIBODY (test c ode = 4675) NON-REACTIVE INTERPRETATION HEPATITIS A: (test code = 2552) (NOTE) INTERPRETATION HEPATITIS B: (test code = 76465) (NOTE) INTERPRETATION HEPATITIS C: (test code = 22108) (NOTE) Topher MichelHIV 1/2 4TH GEN, RFLX [id number] 00:00:00* Test Item Value Reference Range Interpretation Comme nts HIV 1/2 4TH GEN, RFLX CONF ( test code = 3514) NON-REACTIVE Topher Aguillon AustinRPR REFLEX TO T. PALLIDUM - [id number] 00:00:00* Test Item Value Reference Range Interpretation Comme nts RPR (test code = 62659) NON-REACTIVE RPR TITER (test code = 3500) NOT INDIC. TITER Topher Aguillon AustinACUTE HEPATITIS [id number] 00:00:00* Test Item Value Reference Range Interpretation Comme nts HEPATITIS A IgM (test code = 97089) NON-REACTIVE HEPATITIS B CORE IgM (test c ode = 4644) NON-REACTIVE HEPATITIS B SURF AG (test co de = 2739) NON-REACTIVE HEPATITIS C ANTIBODY (test c ode = 4675) NON-REACTIVE INTERPRETATION HEPATITIS A: (test code = 2552) (NOTE) INTERPRETATION HEPATITIS B: (test code = 94249) (NOTE) INTERPRETATION HEPATITIS C: (test code = 20751) (NOTE) Topher Aguillon AustinHIV 1/2 4TH GEN, RFLX [id number] 00:00:00* Test Item Value Reference Range Interpretation Comme nts HIV 1/2 4TH GEN, RFLX CONF ( test code = 3514) NON-REACTIVE Topher Aguillon AustinRPR REFLEX TO T. PALLIDUM - [id number] 00:00:00* Test Item Value Reference Range Interpretation Comme nts RPR (test code = 10718) NON-REACTIVE RPR TITER (test code = 3500) NOT INDIC. TITER Topher MichelACUTE HEPATITIS [id number] 00:00:00* Test Item Value Reference Range Interpretation Comme nts HEPATITIS A IgM (test code = 60171) NON-REACTIVE HEPATITIS B CORE IgM (test c ode = 4644) NON-REACTIVE HEPATITIS B SURF AG (test co de = 2739) NON-REACTIVE HEPATITIS C ANTIBODY (test c ode = 4675) NON-REACTIVE INTERPRETATION HEPATITIS A: (test code = 2552) (NOTE) INTERPRETATION HEPATITIS B: (test code = 08532) (NOTE) INTERPRETATION HEPATITIS C: (test code = 00764) (NOTE) Topher MichelHIV 1/2 4TH GEN, RFLX [id number] 00:00:00* Test Item Value Reference Range Interpretation Comme nts HIV 1/2 4TH GEN, RFLX CONF ( test code = 3514) NON-REACTIVE Topher MichelRPR REFLEX TO T. PALLIDUM - [id number] 00:00:00* Test Item Value Reference Range Interpretation Comme nts RPR (test code = 01635) NON-REACTIVE RPR TITER (test code = 3500) NOT INDIC. TITER Topher MichelACUTE HEPATITIS [id number] 00:00:00* Test Item Value Reference Range Interpretation Comme nts HEPATITIS A IgM (test code = 86481) NON-REACTIVE HEPATITIS B CORE IgM (test c ode = 4644) NON-REACTIVE HEPATITIS B SURF AG (test co de = 2739) NON-REACTIVE HEPATITIS C ANTIBODY (test c ode = 4675) NON-REACTIVE INTERPRETATION HEPATITIS A: (test code = 2552) (NOTE) INTERPRETATION HEPATITIS B: (test code = 53191) (NOTE) INTERPRETATION HEPATITIS C: (test code = 99576) (NOTE) Topher Aguillon AnandCT/NG, NAAT, [id number] 15:10:48* Test Item Value Reference Range Interpretation Comme nts CHLAMYDIA, NAAT, URINE (test code = 94673) NEGATIVE NEGATIVE Testing is perfo rmed with [employer]ATA 6800/8800 systems usingreal-time polymerase chain reaction (PCR) method. A negative result does not exclude low level infection, specimensampling error, or collection error. GONORRHEA, NAAT, URINE (test code = 52071) NEGATIVE NEGATIVE Testing is perfo rmed with [employer] 6800/8800 systems usingreal-time polymerase chain reaction (PCR) method. A negative result does not exclude low level infection, specimensampling error, or collection error. UNLESS OTHERWISE INDICATED, ALL TESTING PERFORMED AT [facility]. [address] [place] [address] DIRECTOR INTERNAL AUDIT: SUSAN YANEZ M.D. CLIA NUMBER [id number] [facility] [place]. [id number] CT/NG, TMA, [id number] 00:00:00* Test Item Value Reference Range Interpretation Comme nts CHLAMYDIA, NAAT, URINE (test code = 28307) NEGATIVE GONORRHEA, NAAT, URINE (test code = 85236) NEGATIVE Topher F AustinCT/NG, TMA, [id number] 00:00:00* Test Item Value Reference Range Interpretation Comme nts CHLAMYDIA, NAAT, URINE (test code = 06941) NEGATIVE GONORRHEA, NAAT, URINE (test code = 21012) NEGATIVE Topher F AustinCT/NG, TMA, [id number] 00:00:00* Test Item Value Reference Range Interpretation Comme nts CHLAMYDIA, NAAT, URINE (test code = 88684) NEGATIVE GONORRHEA, NAAT, URINE (test code = 61093) NEGATIVE Topher F AustinCT/NG, TMA, [id number] 00:00:00* Test Item Value Reference Range Interpretation Comme nts CHLAMYDIA, NAAT, URINE (test code = 33862) NEGATIVE GONORRHEA, NAAT, URINE (test code = 34913) NEGATIVE Topher F AustinCT/NG, TMA, [id number] 00:00:00* Test Item Value Reference Range Interpretation Comme nts CHLAMYDIA, NAAT, URINE (test code = 86450) NEGATIVE GONORRHEA, NAAT, URINE (test code = 73906) NEGATIVE Topher F AustinCT/NG, TMA, [id number] 00:00:00* Test Item Value Reference Range Interpretation Comme nts CHLAMYDIA, NAAT, URINE (test code = 67689) NEGATIVE GONORRHEA, NAAT, URINE (test code = 83420) NEGATIVE Topher MichelCT/NG, TMA, [id number] 00:00:00* Test Item Value Reference Range Interpretation Comme nts CHLAMYDIA, NAAT, URINE (test code = 44004) NEGATIVE GONORRHEA, NAAT, URINE (test code = 52800) NEGATIVE Topher MichelHCG, [id number] 09:23:07* Test Item Value Reference Range Interpretation [...] . . . . . . MIU/ML 8-4FTAI-[id number] FEMALES . . . . . . . . . . . . MIU/ML <=7 UNLESS OTHERWISE INDICATED, ALL TESTING PERFORMED AT [facility] [address] [place] [address] DIRECTOR INTERNAL AUDIT: SUSAN YANEZ M.D. CLIA NUMBER [id number] [facility] [place]. [id number] HCG, [id number] 00:00:00* Test Item Value Reference Range Interpretation Comme nts HCG, QUANTITATIVE (test code = 2506) 44 MIU/ML Topher MichelHCG, [id number] 00:00:00* Test Item Value Reference Range Interpretation Comme nts HCG, QUANTITATIVE (test code = 2506) 44 MIU/ML Topher Aguillon AustinHCG, [id number] 00:00:00* Test Item Value Reference Range Interpretation Comme nts HCG, QUANTITATIVE (test code = 2506) 44 MIU/ML Topher Aguillon AustinHCG, [id number] 00:00:00* Test Item Value Reference Range Interpretation Comme nts HCG, QUANTITATIVE (test code = 2506) 44 MIU/ML Topher Aguillon AustinHCG, [id number] 00:00:00* Test Item Value Reference Range Interpretation Comme nts HCG, QUANTITATIVE (test code = 2506) 44 MIU/ML Topher Aguillon AustinHCG, [id number] 00:00:00* Test Item Value Reference Range Interpretation Comme nts HCG, QUANTITATIVE (test code = 2506) 44 MIU/ML Topher F AustinHCG, [id number] 00:00:00* Test Item Value Reference Range Interpretation Comme nts HCG, QUANTITATIVE (test code = 2506) 44 MIU/ML Topher MichelNIPS W/ [id number] 22:50:20* Test Item Value Reference Range Interpretation Comments FINAL NIPS RESULT (test code = 01979) Low Risk SEX (test code = 86865) Female FRACTION (EST.) (test code = 54424) 6 % TRISOMY 21 (T21) (test code = 81453) Low probability T21 PRE-TEST PROB (test code = 32563) 1/1,126 T21 POST-TEST PROB (test code = 34354) <1/20,000 TRISOMY 18 (T18) (test code = 642869) Low probability T18 PRE-TEST PROB (test code = 142353) 1/2,500 T18 POST-TEST PROB (test code = 268958) <1/20,000 TRISOMY 13 (T13) (test code = 359669) Low probability T13 PRE-TEST PROB (test code = 710873) 1/6,927 T13 POST-TEST PROB (test code = 948717) <1/20,000 INTERPRETATION (test code = 747993) See Note [facility] cell-free DNA from maternalblood shows no evidence of numerical abnormalitiesof the tested chromosomes. IMPORTANT INFORMATION (test code = 987784) See Note Patients with a pre-test probability [...] or analytical factors. RECOMMENDATION (test code = 880217) See Note A negative resul t does not eliminate the risk forother chromosomal abnormalities or birthdefects that are not evaluated in this screeningtest. Clinical correlation of test results isrecommended. GESTATION AT JOHANNE (W) (test code = 046089) 14 weeks GESTATION AT JOHANNE (D) (test code = 890868) 3 days DELIVERY DATE (EST.) (test code = 751360) 03/02/2024 PROVIDED HISTORY INFORMATION (test code = 750595) NUMBER OF FETUSES (test code = 852380) Romero MATERNAL WEIGHT (test code = 632895) 144 LBS DATING METHOD (test code = 203681) NORTH LMP OR NORTH DATE (test code = 939860) 05/27/2023 IVF (test code = 120817) NO PATIENT CONSENT (test code = 399733) YES SEX (test code = 996251) See Note sex determ ination is based [...] andinformation regarding genetic counseling services are available [email or web address]. Method:[facility]'s Non-Invasive Screening (NIPS)test is intended for early screening of aneuploidies (bothmonosomy and trisomy) in chromosomes 21, 18, 13, X and Y. The testutilizes [facility]'s Biz360iSeq NIPT Solution v2 and whole-genomesequencing of circulating fragments of cell-free DNA (cfDNA) obtainedfrom maternal plasma at 10 weeks gestation or later. The fetalcomponent of cfDNA is derived from placental tissue. Paired-endsequencing data of cfDNA are aligned with a reference genome (HG19)and analyzed by the Biz360iSeq NIPT Solution v2 algorithm to determinefetal fraction (FF) and numerical abnormalities in chromosomes 21,18, 13, X and Y. FF is used as a quality officer parameter for NIPSanalysis and interpretation. This test was developed and itsperformance characteristics determined by [facility]). It has not been cleared or approved by the U.S. Food and DrugAdministration (FDA). The FDA has determined that such clearance orapproval is not necessary. This test is used for clinical purposesand should not be regarded as investigational or for research. [facility] isqualified to perform high complexity testing under [...] is derived from published medical literature.Refer to [email or web address] for additionalinformation on pre- and post-test probability. Depending upon anumber of maternal or -related risk factors, an individualpregnancy may have higher or lower pre-test probability which cansignificantly affect the post-test risk estimation. Personal/familyhistory, sonographic and other -related screening findingsare not utilized in the risk estimation. Genetic or medicalcounseling may be useful to revise risk estimates. Test Limitations:[facility]'s NIPS test is a screening test, [...] sonographicscreening options are available. TESTING PERFORMED AT [facility] [address] [place] [address], [address], [place] [id number] CLIA NO: [id number] NIPT W/ [id number] 00:00:00* Test Item Value Reference Range Interpretation Comme nts FINAL NIPS RESULT (test code = 06689) Low Risk SEX (test code = 33928) Female FRACTION (EST.) (test code = 42070) 6 % TRISOMY 21 (T21) (test code = 87336) Low probability T21 PRE-TEST PROB (test code = 41092) 1/,126 T21 POST-TEST PROB (test cod e = 31295) <1/20,000 TRISOMY 18 (T18) (test code = 716596) Low probability T18 PRE-TEST PROB (test code = 806584) 1/2,500 T18 POST-TEST PROB (test cod e = 214875) <1/20,000 TRISOMY 13 (T13) (test code = 598583) Low probability T13 PRE-TEST PROB (test code = 599396) /6,927 T13 POST-TEST PROB (test cod e = 576437) <1/20,000 INTERPRETATION (test code = 101268) See Note IMPORTANT INFORMATION (test code = 204877) See Note RECOMMENDATION (test code = 182542) See Note GESTATION AT JOHANNE (W) (test code = 202621) 14 weeks GESTATION AT JOHANNE (D) (test code = 935320) 3 days DELIVERY DATE (EST.) (test code = 734295) 03/02/2024 PROVIDED HISTORY INFORMATION (test code = 242363) NUMBER OF FETUSES (test code = 439385) Romero MATERNAL WEIGHT (test code = 843841) 144 LBS DATING METHOD (test code = 835565) NORTH LMP OR NORTH DATE (test code = 102546) 05/27/2023 IVF (test code = 997497) NO PATIENT CONSENT (test code = 153266) YES SEX (test code = 544760) See Note Topher Pal AnandNIPT W/ [id number] 00:00:00* Test Item Value Reference Range Interpretation Comme nts FINAL NIPS RESULT (test code = 36767) Low Risk SEX (test code = 84555) Female FRACTION (EST.) (test code = 93950) 6 % TRISOMY 21 (T21) (test code = 24027) Low probability T21 PRE-TEST PROB (test code = 10504) T21 POST-TEST PROB (test cod e = 50328) <1/20,000 TRISOMY 18 (T18) (test code = 332787) Low probability T18 PRE-TEST PROB (test code = 997794) 1/2,500 T18 POST-TEST PROB (test cod e = 990446) <1/20,000 TRISOMY 13 (T13) (test code = 870004) Low probability T13 PRE-TEST PROB (test code = 083116) 6,927 T13 POST-TEST PROB (test cod e = 670347) <1/20,000 INTERPRETATION (test code = 733407) See Note IMPORTANT INFORMATION (test code = 318290) See Note RECOMMENDATION (test code = 243812) See Note GESTATION AT JOHANNE (W) (test code = 625996) 14 weeks GESTATION AT JOHANNE (D) (test code = 138668) 3 days DELIVERY DATE (EST.) (test code = 290726) 03/02/2024 PROVIDED HISTORY INFORMATION (test code = 975519) NUMBER OF FETUSES (test code = 373204) Romero MATERNAL WEIGHT (test code = 425346) 144 LBS DATING METHOD (test code = 296356) NORTH LMP OR NORTH DATE (test code = 577374) 05/27/2023 IVF (test code = 164978) NO PATIENT CONSENT (test code = 720455) YES SEX (test code = 731325) See Note Topher Cody W/ [id number] 00:00:00* Test Item Value Reference Range Interpretation Comme nts FINAL NIPS RESULT (test code = 60831) Low Risk SEX (test code = 94453) Female FRACTION (EST.) (test code = 62158) 6 % TRISOMY 21 (T21) (test code = 96428) Low probability T21 PRE-TEST PROB (test code = 41915) T21 POST-TEST PROB (test cod e = 00398) <1/20,000 TRISOMY 18 (T18) (test code = 813394) Low probability T18 PRE-TEST PROB (test code = 262664) 1/2,500 T18 POST-TEST PROB (test cod e = 802610) <1/20,000 TRISOMY 13 (T13) (test code = 075307) Low probability T13 PRE-TEST PROB (test code = 735706) 10/20,927 T13 POST-TEST PROB (test cod e = 128300) <1/20,000 INTERPRETATION (test code = 779975) See Note IMPORTANT INFORMATION (test code = 921681) See Note RECOMMENDATION (test code = 326862) See Note GESTATION AT JOHANNE (W) (test code = 240009) 14 weeks GESTATION AT JOHANNE (D) (test code = 258697) 3 days DELIVERY DATE (EST.) (test code = 291823) 03/02/2024 PROVIDED HISTORY INFORMATION (test code = 189427) NUMBER OF FETUSES (test code = 838101) Romero MATERNAL WEIGHT (test code = 426997) 144 LBS DATING METHOD (test code = 651072) NORTH LMP OR NORTH DATE (test code = 253458) 05/27/2023 IVF (test code = 431046) NO PATIENT CONSENT (test code = 322252) YES SEX (test code = 241388) See Note Topher Pal Escobar W/ [id number] 00:00:00* Test Item Value Reference Range Interpretation Comme nts FINAL NIPS RESULT (test code = 93490) Low Risk SEX (test code = 83991) Female FRACTION (EST.) (test code = 63984) 6 % TRISOMY 21 (T21) (test code = 73169) Low probability T21 PRE-TEST PROB (test code = 01994) 1,126 T21 POST-TEST PROB (test cod e = 91914) <1/20,000 TRISOMY 18 (T18) (test code = 623147) Low probability T18 PRE-TEST PROB (test code = 912626) 1/2,500 T18 POST-TEST PROB (test cod e = 248634) <1/20,000 TRISOMY 13 (T13) (test code = 984632) Low probability T13 PRE-TEST PROB (test code = 069220) T13 POST-TEST PROB (test cod e = 379494) <1/20,000 INTERPRETATION (test code = 606388) See Note IMPORTANT INFORMATION (test code = 762241) See Note RECOMMENDATION (test code = 652912) See Note GESTATION AT JOHANNE (W) (test code = 464158) 14 weeks GESTATION AT JOHANNE (D) (test code = 186079) 3 days DELIVERY DATE (EST.) (test code = 181004) 03/02/2024 PROVIDED HISTORY INFORMATION (test code = 901989) NUMBER OF FETUSES (test code = 267315) Romero MATERNAL WEIGHT (test code = 213930) 144 LBS DATING METHOD (test code = 660078) NORTH LMP OR NORTH DATE (test code = 611485) 05/27/2023 IVF (test code = 986983) NO PATIENT CONSENT (test code = 766141) YES SEX (test code = 450722) See Note Topher Cody W/ [id number] 00:00:00* Test Item Value Reference Range Interpretation Comme nts FINAL NIPS RESULT (test code = 37391) Low Risk SEX (test code = 92220) Female FRACTION (EST.) (test code = 85160) 6 % TRISOMY 21 (T21) (test code = 79885) Low probability T21 PRE-TEST PROB (test code = 01568) 1/1,126 T21 POST-TEST PROB (test cod e = 01868) <1/20,000 TRISOMY 18 (T18) (test code = 292125) Low probability T18 PRE-TEST PROB (test code = 834790) 1/2,500 T18 POST-TEST PROB (test cod e = 718288) <1/20,000 TRISOMY 13 (T13) (test code = 883249) Low probability T13 PRE-TEST PROB (test code = 956390) T13 POST-TEST PROB (test cod e = 969937) <1/20,000 INTERPRETATION (test code = 806648) See Note IMPORTANT INFORMATION (test code = 924262) See Note RECOMMENDATION (test code = 580249) See Note GESTATION AT JOHANNE (W) (test code = 981245) 14 weeks GESTATION AT JOHANNE (D) (test code = 412177) 3 days DELIVERY DATE (EST.) (test code = 131346) 03/02/2024 PROVIDED HISTORY INFORMATION (test code = 020979) NUMBER OF FETUSES (test code = 994518) Romero MATERNAL WEIGHT (test code = 952732) 144 LBS DATING METHOD (test code = 512238) NORTH LMP OR NORTH DATE (test code = 080076) 05/27/2023 IVF (test code = 797235) NO PATIENT CONSENT (test code = 405551) YES SEX (test code = 391872) See Note Topher Aguillon Escobar W/ [id number] 00:00:00* Test Item Value Reference Range Interpretation Comme nts FINAL NIPS RESULT (test code = 14542) Low Risk SEX (test code = 80850) Female FRACTION (EST.) (test code = 47367) 6 % TRISOMY 21 (T21) (test code = 55220) Low probability T21 PRE-TEST PROB (test code = 69029) 1/1,126 T21 POST-TEST PROB (test cod e = 06608) <1/20,000 TRISOMY 18 (T18) (test code = 024897) Low probability T18 PRE-TEST PROB (test code = 726916) 1/2,500 T18 POST-TEST PROB (test cod e = 051001) <1/20,000 TRISOMY 13 (T13) (test code = 460407) Low probability T13 PRE-TEST PROB (test code = 138545) 1/6,927 T13 POST-TEST PROB (test cod e = 656437) <1/20,000 INTERPRETATION (test code = 100062) See Note IMPORTANT INFORMATION (test code = 414319) See Note RECOMMENDATION (test code = 210341) See Note GESTATION AT JOHANNE (W) (test code = 113365) 14 weeks GESTATION AT JOHANNE (D) (test code = 785307) 3 days DELIVERY DATE (EST.) (test code = 748387) 03/02/2024 PROVIDED HISTORY INFORMATION (test code = 510675) NUMBER OF FETUSES (test code = 035843) Romero MATERNAL WEIGHT (test code = 752007) 144 LBS DATING METHOD (test code = 856869) NORTH LMP OR NORTH DATE (test code = 696945) 05/27/2023 IVF (test code = 803427) NO PATIENT CONSENT (test code = 067379) YES SEX (test code = 894527) See Note [facility]/ [id number] 00:00:00* Test Item Value Reference Range Interpretation Comme nts FINAL NIPS RESULT (test code = 66575) Low Risk SEX (test code = 45691) Female FRACTION (EST.) (test code = 13769) 6 % TRISOMY 21 (T21) (test code = 29568) Low probability T21 PRE-TEST PROB (test code = 71456) 1/1,126 T21 POST-TEST PROB (test cod e = 81535) <1/20,000 TRISOMY 18 (T18) (test code = 897260) Low probability T18 PRE-TEST PROB (test code = 169326) 1/2,500 T18 POST-TEST PROB (test cod e = 089721) <1/20,000 TRISOMY 13 (T13) (test code = 878083) Low probability T13 PRE-TEST PROB (test code = 224854) 1/6,927 T13 POST-TEST PROB (test cod e = 690589) <1/20,000 INTERPRETATION (test code = 501141) See Note IMPORTANT INFORMATION (test code = 189483) See Note RECOMMENDATION (test code = 370660) See Note GESTATION AT JOHANNE (W) (test code = 498977) 14 weeks GESTATION AT JOHANNE (D) (test code = 189287) 3 days DELIVERY DATE (EST.) (test code = 369781) 03/02/2024 PROVIDED HISTORY INFORMATION (test code = 819394) NUMBER OF FETUSES (test code = 336025) Romero MATERNAL WEIGHT (test code = 658732) 144 LBS DATING METHOD (test code = 241066) NORTH LMP OR NORTH DATE (test code = 096221) 05/27/2023 IVF (test code = 684446) NO PATIENT CONSENT (test code = 774809) YES SEX (test code = 204080) See Note Topher Milton URINE PROVIDED:2023-09-06 06:04:57* Test Item Value Reference Range Interpretation Comme nts NO URINE PROVIDED: (test code = 986) (NOTE) NOTE: Patient urine was not provided. Urine testing will be noted out if no urine specimen is received in an appropriate period of time. UNLESS OTHERWISE INDICATED, ALL TESTING PERFORMED AT [facility] [address] [place] [address] DIRECTOR INTERNAL AUDIT: SUSAN YANEZ M.D. IA NUMBER [id number] [facility] [place]. [id number] [ADDED]2023-09-06 00:00:00* Test Item Value Reference Range Interpretation Comme nts NO URINE PROVIDED: (test code = 986) (NOTE) PDFE (test code = PDFReport) PDF Topher Hubbard [ADDED]2023-09-06 00:00:00* Test Item Value Reference Range Interpretation Comme nts NO URINE PROVIDED: (test code = 986) (NOTE) PDFE (test code = PDFReport) PDF Topher Hubbard [ADDED]2023-09-06 00:00:00* Test Item Value Reference Range Interpretation Comme nts NO URINE PROVIDED: (test code = 986) (NOTE) PDFE (test code = PDFReport) PDF Topher Hubbard [ADDED]2023-09-06 00:00:00* Test Item Value Reference Range Interpretation Comme nts NO URINE PROVIDED: (test code = 986) (NOTE) PDFE (test code = PDFReport) PDF Tpoher Hubbard [ADDED]2023-09-06 00:00:00* Test Item Value Reference Range Interpretation Comme nts NO URINE PROVIDED: (test code = 986) (NOTE) PDFE (test code = PDFReport) PDF Topher Hubbard [ADDED]2023-09-06 00:00:00* Test Item Value Reference Range Interpretation Comme nts NO URINE PROVIDED: (test code = 986) (NOTE) PDFE (test code = PDFReport) PDF Topher Hubbard [ADDED]2023-09-06 00:00:00* Test Item Value Reference Range Interpretation Comme nts NO URINE PROVIDED: (test code = 986) (NOTE) PDFE (test code = PDFReport) PDF ENRRIQUE Cote2023-11-05 10:47:23SPECIMEN NUMBER: [id number] CULTURE, URINE SPECIMEN NUMBER: [id number] SPECIMEN COMMENT: URINE SOURCE: URINE REPORT STATUS: FINAL FINAL REPORT: 08/19/2023 10-50,000 CFU/ML MIXED MICROBIAL POPULATION PRESENT, NO PREDOMINATING ORGANISMS;PROBABLE CONTAMINANTS. UNLESS OTHERWISE INDICATED, ALL TESTING PERFORMED AT [facility] [address] [place] [address] DIRECTOR INTERNAL AUDIT: SUSAN YANEZ M.D. CLIA NUMBER [id number] [facility] [place]. [id number], [id number] 00:00:00* Test Item Value Reference Range Interpretation Comme nts CULTURE, URINE (test code = 22484) SPECIMEN NUMBER: [id number] Topher Juarez [id number] 00:00:00* Test Item Value Reference Range Interpretation Comme nts CULTURE, URINE (test code = 05832) SPECIMEN NUMBER: [id number] Topher WellsLTKAYLEE [id number] 00:00:00* Test Item Value Reference Range Interpretation Comme nts CULTURE, URINE (test code = 36702) SPECIMEN NUMBER: [id number] Topher WellsLTKAYLEE [id number] 00:00:00* Test Item Value Reference Range Interpretation Comme nts CULTURE, URINE (test code = 84714) SPECIMEN NUMBER: [id number] Topher WellsLTKAYLEE [id number] 00:00:00* Test Item Value Reference Range Interpretation Comme nts CULTURE, URINE (test code = 83224) SPECIMEN NUMBER: [id number] Topher WellsLTKAYLEE, [id number] 00:00:00* Test Item Value Reference Range Interpretation Comme nts CULTURE, URINE (test code = 06996) SPECIMEN NUMBER: [id number] Topher WellsLTKAYLEE, [id number] 00:00:00* Test Item Value Reference Range Interpretation Comme nts CULTURE, URINE (test code = 60986) SPECIMEN NUMBER: [id number] Topher MichelHEMOGLOBIN [id number] 11:52:56* Test Item Value Reference Range Interpretation Comme nts HEMOGLOBIN A1 (test code = 2575) 97.6 % 95.0-98.5 HEMOGLOBIN A2 (test code = 2576) 2.4 % 1.6-3.7 HEMOGLOBIN F () (test code = 2722) 0.0 % 0.0-2.0 HEMOGLOBIN S (test code = 2724) NONE % NONE DETECTED HEMOGLOBIN C (test code = 2726) NONE % NONE DETECTED OTHER HEMOGLOBIN VARIANT (test code = 92210) NONE DETEC % NONE DETECTED PATHOLOGIST'S INTERPRETATION [...] OBSCURING THE DIAGNOSIS OFBETA-THALASSEMIA. DEDE BACA M.D. HEMOGLOBIN [id number] 00:00:00* Test Item Value Reference Range Interpretation Comme nts HEMOGLOBIN A1 (test code = 2575) 97.6 % HEMOGLOBIN A2 (test code = 2576) 2.4 % HEMOGLOBIN F () (test c ode = 2722) 0.0 % HEMOGLOBIN S (test code = 2724) NONE % HEMOGLOBIN C (test code = 2726) NONE % OTHER HEMOGLOBIN VARIANT (te st code = 76504) NONE DETEC % PATHOLOGIST'S INTERPRETATION (test code = 2577) (NOTE) Topher Aguillon AustinHEMOGLOBIN [id number] 00:00:00* Test Item Value Reference Range Interpretation Comme nts HEMOGLOBIN A1 (test code = 2575) 97.6 % HEMOGLOBIN A2 (test code = 2576) 2.4 % HEMOGLOBIN F () (test c ode = 2722) 0.0 % HEMOGLOBIN S (test code = 2724) NONE % HEMOGLOBIN C (test code = 2726) NONE % OTHER HEMOGLOBIN VARIANT (te st code = 36538) NONE DETEC % PATHOLOGIST'S INTERPRETATION (test code = 2577) (NOTE) Topher Aguillon AustinHEMOGLOBIN [id number] 00:00:00* Test Item Value Reference Range Interpretation Comme nts HEMOGLOBIN A1 (test code = 2575) 97.6 % HEMOGLOBIN A2 (test code = 2576) 2.4 % HEMOGLOBIN F () (test c ode = 2722) 0.0 % HEMOGLOBIN S (test code = 2724) NONE % HEMOGLOBIN C (test code = 2726) NONE % OTHER HEMOGLOBIN VARIANT (te st code = 30772) NONE DETEC % PATHOLOGIST'S INTERPRETATION (test code = 2577) (NOTE) Topher Aguillon AustinHEMOGLOBIN [id number] 00:00:00* Test Item Value Reference Range Interpretation Comme nts HEMOGLOBIN A1 (test code = 2575) 97.6 % HEMOGLOBIN A2 (test code = 2576) 2.4 % HEMOGLOBIN F () (test c ode = 2722) 0.0 % HEMOGLOBIN S (test code = 2724) NONE % HEMOGLOBIN C (test code = 2726) NONE % OTHER HEMOGLOBIN VARIANT (te st code = 64082) NONE DETEC % PATHOLOGIST'S INTERPRETATION (test code = 2577) (NOTE) Topher Aguillon AustinHEMOGLOBIN [id number] 00:00:00* Test Item Value Reference Range Interpretation Comme nts HEMOGLOBIN A1 (test code = 2575) 97.6 % HEMOGLOBIN A2 (test code = 2576) 2.4 % HEMOGLOBIN F () (test c ode = 2722) 0.0 % HEMOGLOBIN S (test code = 2724) NONE % HEMOGLOBIN C (test code = 2726) NONE % OTHER HEMOGLOBIN VARIANT (te st code = 22719) NONE DETEC % PATHOLOGIST'S INTERPRETATION (test code = 2577) (NOTE) Topher Aguillon AustinHEMOGLOBIN [id number] 00:00:00* Test Item Value Reference Range Interpretation Comme nts HEMOGLOBIN A1 (test code = 2575) 97.6 % HEMOGLOBIN A2 (test code = 2576) 2.4 % HEMOGLOBIN F () (test c ode = 2722) 0.0 % HEMOGLOBIN S (test code = 2724) NONE % HEMOGLOBIN C (test code = 2726) NONE % OTHER HEMOGLOBIN VARIANT (te st code = 37309) NONE DETEC % PATHOLOGIST'S INTERPRETATION (test code = 2577) (NOTE) Topher Aguillon AustinHEMOGLOBIN [id number] 00:00:00* Test Item Value Reference Range Interpretation Comme nts HEMOGLOBIN A1 (test code = 2575) 97.6 % HEMOGLOBIN A2 (test code = 2576) 2.4 % HEMOGLOBIN F () (test c ode = 2722) 0.0 % HEMOGLOBIN S (test code = 2724) NONE % HEMOGLOBIN C (test code = 2726) NONE % OTHER HEMOGLOBIN VARIANT (te st code = 83215) NONE DETEC % PATHOLOGIST'S INTERPRETATION (test code = 2577) (NOTE) Topher Jimenez TEST, THINPREP, [id number] 16:57:26* Test Item Value Reference Range Interpretation Comme nts SOURCE: (test code = 8001) Cervical/Endoce rvical SLIDES: (test code = 8011) 2 LMP: (test code = 8021) 05/27/2023 SPECIMEN ADEQUACY: (test code = 13189) (NOTE) Satisfactory for evaluation. Endocervical cells/transformation zone component present. INTERPRETATION: (test code = 29156) NILM/NO EPITH. ABNORMALITY;SEE BELOW --- - NEGATIVE FOR INTRAEPITHELIAL LESION OR MALIGNANCY (NILM) ---- OTHER COMMENTS: (test code = 8081) (NOTE) Shift in chrystal suggestive of bacterial vaginosis. Glacial acetic acid added due to blood/mucus in specimen. BAKER SECOND : (test code = 8101) Jennifer Martell, CT(ASCP) QC TECHNOLOGIST: (test code = 8111) Johnnie Vergara,SCT(ASCP)I LOCATION: (test code = 82590) (NOTE) Specimens proces sed and interpreted at [facility], [address] [place] [address], , CLIA: [id number] CPT: (test code = 8140) (NOTE) 02957 UNLESS OTH ERWISE INDICATED, COMPUTER AIDED AND BAKER SECOND SCREENING PERFORMED. The Pap test is a screening test with an inherent, but low probability of error. Your patient should be reminded to consult you immediately if she experiences any suspicious signs or symptoms, regardless of her Pap test result. An alternate report format containing images or consolidated prior Pap history is available as applicable. VARICELLA ZOSTER [id number] 13:20:46* Test Item Value Reference Range Interpretation Comme nts VARICELLA ZOSTER IgG (test code = 50703) 1182 INDEX SEE BELOW INTERPRETATION V ZV [...] . . . . INDEX >=165 HCG, [id number] 06:33:57* Test Item Value Reference Range Interpretation Comme nts HCG, QUANTITATIVE (test code = 2506) 97747 MIU/ML SEE BELOW EXPECTED VALUES FOR HCG [...] . . . . . . MIU/ML [id number] FEMALES . . . . . . . . . . . . MIU/ML <=7 DRUG ABUSE SCREEN 10 REFLEX [id number] 05:54:57* Test Item Value Reference Range Interpretation Comme nts AMPHETAMINES (test code = 3201) NEGATIVE NEGATIVE BARBITURATES (test code = 3202) NEGATIVE NEGATIVE BENZODIAZEPINES (test code = 3203) NEGATIVE NEGATIVE CANNABINOIDS (test code = 3204) NEGATIVE NEGATIVE COCAINE METABOLITE (test code = 3205) NEGATIVE NEGATIVE OPIATES (test code = 3209) NEGATIVE NEGATIVE OXYCODONE (test code = 58702) NEGATIVE NEGATIVE PHENCYCLIDINE (test code = 3210) NEGATIVE NEGATIVE METHADONE (test code = 3207) NEGATIVE NEGATIVE BUPRENORPHINE (test code = 23889) NEGATIVE NEGATIVE SOURCE (test code = 707472) URINE SEE BELOW FO R THRESHOLDS AND [...] TESTING PERFORMED AT [facility] [address] [place] [id number] DIRECTOR INTERNAL AUDIT: SUSAN YANEZ M.D. IA NUMBER [id number] [facility] [place]. [id number] OBSTETRIC PANEL + [id number] 05:53:01* Test Item Value Reference Range Interpretation [...] 0.00-0.10 ABS NUCLEATED RBCS (test code = 22898) 0.00 K/UL 0.00-0.11 BLOOD TYPE AND RH [...] BELOW RUBELLA IgG INTERP (test code = 80528) REACTIVE REACTIVE INTERPRETATI ON UNITS RANGE NON-REACTIVE/NON-IMM UNE IU/ML <10 REACTIVE/IMMUNE IU/ML >=10 HEPATITIS B SURF AG (test code = 2739) NON-REACTIVE NON-REACTIVE RPR (test code = 26624) NON-REACTIVE NON-REACTIVE RPR TITER (test code = 3500) NOT INDIC. TITER NOT INDIC. HIV 1/2 4TH GEN, RFLX CONF (test code = 3514) NON-REACTIVE NON-REACTIVE HEPATITIS C [id number] 05:53:01* Test Item Value Reference Range Interpretation Comme nts HEPATITIS C ANTIBODY (test c ode = 4675) NON-REACTIVE NON-REACTIVE [id number] 03:48:39* Test Item Value Reference Range Interpretation Comme nts RPR RESULT (test code = 3501) NON-REACTIVE NON-REACTIVE RPR TITER (test code = 3500) NOT INDIC. TITER NOT INDIC. OBSTETRIC PANEL + [id number] 00:00:00* Test Item Value Reference Range Interpretation Comme nts WBC (test code = 1001) 7.4 K/UL RBC (test code = 1002) 5.30 M/UL HEMOGLOBIN (test code = 1003) 11.2 G/DL HEMATOCRIT (test code = 1004) 36.2 % MCV (test code = 1005) 68.3 fL MCH (test code = 1006) 21.1 PG MCHC (test code = 1007) 30.9 G/DL RDW (test code = 1038) 19.4 % NEUTROPHILS (test code = 1008) 62.0 % LYMPHOCYTES (test code = 1010) 28.0 % MONOCYTES (test code = 1011) 7.3 % EOSINOPHILS (test code = 1012) 1.9 % BASOPHILS (test code = 1013) 0.5 % IMMATURE GRANULOCYTES (test code = 1036) 0.3 % NUCLEATED RBCS (test code = 1065) 0.0 /100WBC'S PLATELET COUNT (test code = 1015) 463 K/UL ABSOLUTE NEUTROPHILS (test code = 1066) 4.56 K/UL ABSOLUTE LYMPHOCYTES (test code = 1067) 2.06 K/UL ABSOLUTE MONOCYTES (test code = 1068) 0.54 K/UL ABSOLUTE EOSINOPHILS (test code = 1040) 0.14 K/UL ABSOLUTE BASOPHILS (test code = 1069) 0.04 K/UL ABS IMMATURE GRANULOCYTES (test code = 1020) 0.02 K/UL ABS NUCLEATED RBCS (test code = 53144) 0.00 K/UL BLOOD TYPE AND RH (test code = 3901) B POSITIVE ANTIBODY SCREEN (test code = 3902) NEGATIVE RUBELLA ANTIBODY SCREEN (test code = 4600) 177 IU/ML RUBELLA IgG INTERP (test code = 35782) REACTIVE HEPATITIS B SURF AG (test code = 2739) NON-REACTIVE RPR (test code = 97881) NON-REACTIVE RPR TITER (test code = 3500) NOT INDIC. TITER HIV 1/2 4TH GEN, RFLX CONF (test code = 3514) NON-REACTIVE Topher Aguillon AnandPAP TEST, THINPREP, [id number] 00:00:00* Test Item Value Reference Range Interpretation Comme nts SOURCE: (test code = 8001) Cervical/Endocervical SLIDES: (test code = 8011) 2 LMP: (test code = 8021) 05/27/2023 SPECIMEN ADEQUACY: (test code = 95433) (NOTE) INTERPRETATION: (test code = 93650) NILM/NO EPITH. ABNORMALITY;SEE BELOW OTHER COMMENTS: (test code = 8081) (NOTE) BAKER SECOND: (test code = 8101) Jennifer Martell, CT(ASCP) QC TECHNOLOGIST: (test code = 8111) Johnnie Vergara,SCT(ASCP)IAC LOCATION: (test code = 99473) (NOTE) CPT: (test code = 8140) (NOTE) Topher Aguillon AnandHEPATITIS C [id number] 00:00:00* Test Item Value Reference Range Interpretation Comme nts HEPATITIS C ANTIBODY (test c ode = 4675) NON-REACTIVE Topher Aguillon AnandVARICELLA ZOSTER [id number] 00:00:00* Test Item Value Reference Range Interpretation Comme nts VARICELLA ZOSTER IgG (test c ode = 78539) 1182 INDEX Topher MichelDRUG ABUSE SCREEN 10 REFLEX [id number] 00:00:00* Test Item Value Reference Range Interpretation Comme nts AMPHETAMINES (test code = 3201) NEGATIVE BARBITURATES (test code = 3202) NEGATIVE BENZODIAZEPINES (test code = 3203) NEGATIVE CANNABINOIDS (test code = 3204) NEGATIVE COCAINE METABOLITE (test cod e = 3205) NEGATIVE OPIATES (test code = 3209) NEGATIVE OXYCODONE (test code = 86195) NEGATIVE PHENCYCLIDINE (test code = 3210) NEGATIVE METHADONE (test code = 3207) NEGATIVE BUPRENORPHINE (test code = 62430) NEGATIVE SOURCE (test code = 376459) URINE Topher MichelHCG, [id number] 00:00:00* Test Item Value Reference Range Interpretation Comme nts HCG, QUANTITATIVE (test code = 2506) 80201 MIU/ML Topher [id number] 00:00:00* Test Item Value Reference Range Interpretation Comme nts RPR RESULT (test code = 3501) NON-REACTIVE RPR TITER (test code = 3500) NOT INDIC. TITER Topher MichelOBSTETRIC PANEL + [id number] 00:00:00* Test Item Value Reference Range Interpretation Comme nts WBC (test code = 1001) 7.4 K/UL RBC (test code = 1002) 5.30 M/UL HEMOGLOBIN (test code = 1003) 11.2 G/DL HEMATOCRIT (test code = 1004) 36.2 % MCV (test code = 1005) 68.3 fL MCH (test code = 1006) 21.1 PG MCHC (test code = 1007) 30.9 G/DL RDW (test code = 1038) 19.4 % NEUTROPHILS (test code = 1008) 62.0 % LYMPHOCYTES (test code = 1010) 28.0 % MONOCYTES (test code = 1011) 7.3 % EOSINOPHILS (test code = 1012) 1.9 % BASOPHILS (test code = 1013) 0.5 % IMMATURE GRANULOCYTES (test code = 1036) 0.3 % NUCLEATED RBCS (test code = 1065) 0.0 /100WBC'S PLATELET COUNT (test code = 1015) 463 K/UL ABSOLUTE NEUTROPHILS (test code = 1066) 4.56 K/UL ABSOLUTE LYMPHOCYTES (test code = 1067) 2.06 K/UL ABSOLUTE MONOCYTES (test code = 1068) 0.54 K/UL ABSOLUTE EOSINOPHILS (test code = 1040) 0.14 K/UL ABSOLUTE BASOPHILS (test code = 1069) 0.04 K/UL ABS IMMATURE GRANULOCYTES (test code = 1020) 0.02 K/UL ABS NUCLEATED RBCS (test code = 81938) 0.00 K/UL BLOOD TYPE AND RH (test code = 3901) B POSITIVE ANTIBODY SCREEN (test code = 3902) NEGATIVE RUBELLA ANTIBODY SCREEN (test code = 4600) 177 IU/ML RUBELLA IgG INTERP (test code = 33450) REACTIVE HEPATITIS B SURF AG (test code = 2739) NON-REACTIVE RPR (test code = 79937) NON-REACTIVE RPR TITER (test code = 3500) NOT INDIC. TITER HIV 1/2 4TH GEN, RFLX CONF (test code = 3514) NON-REACTIVE Topher Aguillon AustinHEPATITIS C [id number] 00:00:00* Test Item Value Reference Range Interpretation Comme nts HEPATITIS C ANTIBODY (test c ode = 4675) NON-REACTIVE Topher MichelPAP TEST, THINPREP, [id number] 00:00:00* Test Item Value Reference Range Interpretation Comme nts SOURCE: (test code = 8001) Cervical/Endocervical SLIDES: (test code = 8011) 2 LMP: (test code = 8021) 05/27/2023 SPECIMEN ADEQUACY: (test code = 20871) (NOTE) INTERPRETATION: (test code = 55191) NILM/NO EPITH. ABNORMALITY;SEE BELOW OTHER COMMENTS: (test code = 8081) (NOTE) BAKER SECOND: (test code = 8101) Jennifer Martell, CT(ASCP) QC TECHNOLOGIST: (test code = 8111) Johnnie Vergara,SCT(ASCP)IAC LOCATION: (test code = 93069) (NOTE) CPT: (test code = 8140) (NOTE) Topher Aguillon AustinVARICELLA ZOSTER [id number] 00:00:00* Test Item Value Reference Range Interpretation Comme nts VARICELLA ZOSTER IgG (test c ode = 08417) 1182 INDEX Topher MichelDRUG ABUSE SCREEN 10 REFLEX [id number] 00:00:00* Test Item Value Reference Range Interpretation Comme nts AMPHETAMINES (test code = 3201) NEGATIVE BARBITURATES (test code = 3202) NEGATIVE BENZODIAZEPINES (test code = 3203) NEGATIVE CANNABINOIDS (test code = 3204) NEGATIVE COCAINE METABOLITE (test cod e = 3205) NEGATIVE OPIATES (test code = 3209) NEGATIVE OXYCODONE (test code = 07597) NEGATIVE PHENCYCLIDINE (test code = 3210) NEGATIVE METHADONE (test code = 3207) NEGATIVE BUPRENORPHINE (test code = 97457) NEGATIVE SOURCE (test code = 890188) URINE Topher MichelHCG, [id number] 00:00:00* Test Item Value Reference Range Interpretation Comme nts HCG, QUANTITATIVE (test code = 2506) 69230 MIU/ML Topher [id number] 00:00:00* Test Item Value Reference Range Interpretation Comme nts RPR RESULT (test code = 3501) NON-REACTIVE RPR TITER (test code = 3500) NOT INDIC. TITER Topher MichelOBSTETRIC PANEL + [id number] 00:00:00* Test Item Value Reference Range Interpretation Comme nts WBC (test code = 1001) 7.4 K/UL RBC (test code = 1002) 5.30 M/UL HEMOGLOBIN (test code = 1003) 11.2 G/DL HEMATOCRIT (test code = 1004) 36.2 % MCV (test code = 1005) 68.3 fL MCH (test code = 1006) 21.1 PG MCHC (test code = 1007) 30.9 G/DL RDW (test code = 1038) 19.4 % NEUTROPHILS (test code = 1008) 62.0 % LYMPHOCYTES (test code = 1010) 28.0 % MONOCYTES (test code = 1011) 7.3 % EOSINOPHILS (test code = 1012) 1.9 % BASOPHILS (test code = 1013) 0.5 % IMMATURE GRANULOCYTES (test code = 1036) 0.3 % NUCLEATED RBCS (test code = 1065) 0.0 /100WBC'S PLATELET COUNT (test code = 1015) 463 K/UL ABSOLUTE NEUTROPHILS (test code = 1066) 4.56 K/UL ABSOLUTE LYMPHOCYTES (test code = 1067) 2.06 K/UL ABSOLUTE MONOCYTES (test code = 1068) 0.54 K/UL ABSOLUTE EOSINOPHILS (test code = 1040) 0.14 K/UL ABSOLUTE BASOPHILS (test code = 1069) 0.04 K/UL ABS IMMATURE GRANULOCYTES (test code = 1020) 0.02 K/UL ABS NUCLEATED RBCS (test code = 50734) 0.00 K/UL BLOOD TYPE AND RH (test code = 3901) B POSITIVE ANTIBODY SCREEN (test code = 3902) NEGATIVE RUBELLA ANTIBODY SCREEN (test code = 4600) 177 IU/ML RUBELLA IgG INTERP (test code = 61948) REACTIVE HEPATITIS B SURF AG (test code = 2739) NON-REACTIVE RPR (test code = 72421) NON-REACTIVE RPR TITER (test code = 3500) NOT INDIC. TITER HIV 1/2 4TH GEN, RFLX CONF (test code = 3514) NON-REACTIVE Topher MichelHEPATITIS C [id number] 00:00:00* Test Item Value Reference Range Interpretation Comme nts HEPATITIS C ANTIBODY (test c ode = 4675) NON-REACTIVE Topher MichelPAP TEST, THINPREP, [id number] 00:00:00* Test Item Value Reference Range Interpretation Comme nts SOURCE: (test code = 8001) Cervical/Endocervical SLIDES: (test code = 8011) 2 LMP: (test code = 8021) 05/27/2023 SPECIMEN ADEQUACY: (test code = 30867) (NOTE) INTERPRETATION: (test code = 02823) NILM/NO EPITH. ABNORMALITY;SEE BELOW OTHER COMMENTS: (test code = 8081) (NOTE) BAKER SECOND: (test code = 8101) Jennifer Martell, CT(ASCP) QC TECHNOLOGIST: (test code = 8111) Johnnie Vergara,SCT(ASCP)IAC LOCATION: (test code = 62602) (NOTE) CPT: (test code = 8140) (NOTE) Topher Aguillon AustinVARICELLA ZOSTER [id number] 00:00:00* Test Item Value Reference Range Interpretation Comme nts VARICELLA ZOSTER IgG (test c ode = 10568) 1182 INDEX Topher F AustinDRUG ABUSE SCREEN 10 REFLEX [id number] 00:00:00* Test Item Value Reference Range Interpretation Comme nts AMPHETAMINES (test code = 3201) NEGATIVE BARBITURATES (test code = 3202) NEGATIVE BENZODIAZEPINES (test code = 3203) NEGATIVE CANNABINOIDS (test code = 3204) NEGATIVE COCAINE METABOLITE (test cod e = 3205) NEGATIVE OPIATES (test code = 3209) NEGATIVE OXYCODONE (test code = 87227) NEGATIVE PHENCYCLIDINE (test code = 3210) NEGATIVE METHADONE (test code = 3207) NEGATIVE BUPRENORPHINE (test code = 40570) NEGATIVE SOURCE (test code = 393012) URINE Topher MichelHCG, [id number] 00:00:00* Test Item Value Reference Range Interpretation Comme nts HCG, QUANTITATIVE (test code = 2506) 09036 MIU/ML Topher [id number] 00:00:00* Test Item Value Reference Range Interpretation Comme nts RPR RESULT (test code = 3501) NON-REACTIVE RPR TITER (test code = 3500) NOT INDIC. TITER Topher MichelOBSTETRIC PANEL + [id number] 00:00:00* Test Item Value Reference Range Interpretation Comme nts WBC (test code = 1001) 7.4 K/UL RBC (test code = 1002) 5.30 M/UL HEMOGLOBIN (test code = 1003) 11.2 G/DL HEMATOCRIT (test code = 1004) 36.2 % MCV (test code = 1005) 68.3 fL MCH (test code = 1006) 21.1 PG MCHC (test code = 1007) 30.9 G/DL RDW (test code = 1038) 19.4 % NEUTROPHILS (test code = 1008) 62.0 % LYMPHOCYTES (test code = 1010) 28.0 % MONOCYTES (test code = 1011) 7.3 % EOSINOPHILS (test code = 1012) 1.9 % BASOPHILS (test code = 1013) 0.5 % IMMATURE GRANULOCYTES (test code = 1036) 0.3 % NUCLEATED RBCS (test code = 1065) 0.0 /100WBC'S PLATELET COUNT (test code = 1015) 463 K/UL ABSOLUTE NEUTROPHILS (test code = 1066) 4.56 K/UL ABSOLUTE LYMPHOCYTES (test code = 1067) 2.06 K/UL ABSOLUTE MONOCYTES (test code = 1068) 0.54 K/UL ABSOLUTE EOSINOPHILS (test code = 1040) 0.14 K/UL ABSOLUTE BASOPHILS (test code = 1069) 0.04 K/UL ABS IMMATURE GRANULOCYTES (test code = 1020) 0.02 K/UL ABS NUCLEATED RBCS (test code = 81222) 0.00 K/UL BLOOD TYPE AND RH (test code = 3901) B POSITIVE ANTIBODY SCREEN (test code = 3902) NEGATIVE RUBELLA ANTIBODY SCREEN (test code = 4600) 177 IU/ML RUBELLA IgG INTERP (test code = 06782) REACTIVE HEPATITIS B SURF AG (test code = 2739) NON-REACTIVE RPR (test code = 97442) NON-REACTIVE RPR TITER (test code = 3500) NOT INDIC. TITER HIV 1/2 4TH GEN, RFLX CONF (test code = 3514) NON-REACTIVE Topher MichelPAP TEST, THINPREP, [id number] 00:00:00* Test Item Value Reference Range Interpretation Comme nts SOURCE: (test code = 8001) Cervical/Endocervical SLIDES: (test code = 8011) 2 LMP: (test code = 8021) 05/27/2023 SPECIMEN ADEQUACY: (test code = 68308) (NOTE) INTERPRETATION: (test code = 69774) NILM/NO EPITH. ABNORMALITY;SEE BELOW OTHER COMMENTS: (test code = 8081) (NOTE) BAKER SECOND: (test code = 8101) Jennifer Martell, CT([facility]) QC TECHNOLOGIST: (test code = 8111) Johnnie Vergara,SCT([facility])IAC LOCATION: (test code = 42946) (NOTE) CPT: (test code = 8140) (NOTE) Topher MichelHEPATITIS C [id number] 00:00:00* Test Item Value Reference Range Interpretation Comme nts HEPATITIS C ANTIBODY (test c ode = 4675) NON-REACTIVE Topher McihelVARICELLA ZOSTER [id number] 00:00:00* Test Item Value Reference Range Interpretation Comme nts VARICELLA ZOSTER IgG (test c ode = 29090) 1182 INDEX Topher MichelDRUG ABUSE SCREEN 10 REFLEX [id number] 00:00:00* Test Item Value Reference Range Interpretation Comme nts AMPHETAMINES (test code = 3201) NEGATIVE BARBITURATES (test code = 3202) NEGATIVE BENZODIAZEPINES (test code = 3203) NEGATIVE CANNABINOIDS (test code = 3204) NEGATIVE COCAINE METABOLITE (test cod e = 3205) NEGATIVE OPIATES (test code = 3209) NEGATIVE OXYCODONE (test code = 48783) NEGATIVE PHENCYCLIDINE (test code = 3210) NEGATIVE METHADONE (test code = 3207) NEGATIVE BUPRENORPHINE (test code = 77481) NEGATIVE SOURCE (test code = 634431) URINE Topher MichelHCG, [id number] 00:00:00* Test Item Value Reference Range Interpretation Comme nts HCG, QUANTITATIVE (test code = 2506) 29692 MIU/ML Topher [id number] 00:00:00* Test Item Value Reference Range Interpretation Comme nts RPR RESULT (test code = 3501) NON-REACTIVE RPR TITER (test code = 3500) NOT INDIC. TITER Topher MichelOBSTETRIC PANEL + [id number] 00:00:00* Test Item Value Reference Range Interpretation Comme nts WBC (test code = 1001) 7.4 K/UL RBC (test code = 1002) 5.30 M/UL HEMOGLOBIN (test code = 1003) 11.2 G/DL HEMATOCRIT (test code = 1004) 36.2 % MCV (test code = 1005) 68.3 fL MCH (test code = 1006) 21.1 PG MCHC (test code = 1007) 30.9 G/DL RDW (test code = 1038) 19.4 % NEUTROPHILS (test code = 1008) 62.0 % LYMPHOCYTES (test code = 1010) 28.0 % MONOCYTES (test code = 1011) 7.3 % EOSINOPHILS (test code = 1012) 1.9 % BASOPHILS (test code = 1013) 0.5 % IMMATURE GRANULOCYTES (test code = 1036) 0.3 % NUCLEATED RBCS (test code = 1065) 0.0 /100WBC'S PLATELET COUNT (test code = 1015) 463 K/UL ABSOLUTE NEUTROPHILS (test code = 1066) 4.56 K/UL ABSOLUTE LYMPHOCYTES (test code = 1067) 2.06 K/UL ABSOLUTE MONOCYTES (test code = 1068) 0.54 K/UL ABSOLUTE EOSINOPHILS (test code = 1040) 0.14 K/UL ABSOLUTE BASOPHILS (test code = 1069) 0.04 K/UL ABS IMMATURE GRANULOCYTES (test code = 1020) 0.02 K/UL ABS NUCLEATED RBCS (test code = 13281) 0.00 K/UL BLOOD TYPE AND RH (test code = 3901) B POSITIVE ANTIBODY SCREEN (test code = 3902) NEGATIVE RUBELLA ANTIBODY SCREEN (test code = 4600) 177 IU/ML RUBELLA IgG INTERP (test code = 44030) REACTIVE HEPATITIS B SURF AG (test code = 2739) NON-REACTIVE RPR (test code = 14891) NON-REACTIVE RPR TITER (test code = 3500) NOT INDIC. TITER HIV 1/2 4TH GEN, RFLX CONF (test code = 3514) NON-REACTIVE Topher MichelHEPATITIS C [id number] 00:00:00* Test Item Value Reference Range Interpretation Comme nts HEPATITIS C ANTIBODY (test c ode = 4675) NON-REACTIVE Topher MichelPAP TEST, THINPREP, [id number] 00:00:00* Test Item Value Reference Range Interpretation Comme nts SOURCE: (test code = 8001) Cervical/Endocervical SLIDES: (test code = 8011) 2 LMP: (test code = 8021) 05/27/2023 SPECIMEN ADEQUACY: (test code = 81566) (NOTE) INTERPRETATION: (test code = 15810) NILM/NO EPITH. ABNORMALITY;SEE BELOW OTHER COMMENTS: (test code = 8081) (NOTE) BAKER SECOND: (test code = 8101) Jennifer Martell, CT([facility]) QC TECHNOLOGIST: (test code = 8111) Johnnie Vergara,SCT(ASCP)IAC LOCATION: (test code = 94146) (NOTE) CPT: (test code = 8140) (NOTE) Topher MichelVARICELLA ZOSTER [id number] 00:00:00* Test Item Value Reference Range Interpretation Comme nts VARICELLA ZOSTER IgG (test c ode = 03994) 1182 INDEX Topher MichelDRUG ABUSE SCREEN 10 REFLEX [id number] 00:00:00* Test Item Value Reference Range Interpretation Comme nts AMPHETAMINES (test code = 3201) NEGATIVE BARBITURATES (test code = 3202) NEGATIVE BENZODIAZEPINES (test code = 3203) NEGATIVE CANNABINOIDS (test code = 3204) NEGATIVE COCAINE METABOLITE (test cod e = 3205) NEGATIVE OPIATES (test code = 3209) NEGATIVE OXYCODONE (test code = 02160) NEGATIVE PHENCYCLIDINE (test code = 3210) NEGATIVE METHADONE (test code = 3207) NEGATIVE BUPRENORPHINE (test code = 83185) NEGATIVE SOURCE (test code = 784260) URINE Topher MichelHCG, [id number] 00:00:00* Test Item Value Reference Range Interpretation Comme nts HCG, QUANTITATIVE (test code = 2506) 41475 MIU/ML Topher [id number] 00:00:00* Test Item Value Reference Range Interpretation Comme nts RPR RESULT (test code = 3501) NON-REACTIVE RPR TITER (test code = 3500) NOT INDIC. TITER Topher MichelOBSTETRIC PANEL + [id number] 00:00:00* Test Item Value Reference Range Interpretation Comme nts WBC (test code = 1001) 7.4 K/UL RBC (test code = 1002) 5.30 M/UL HEMOGLOBIN (test code = 1003) 11.2 G/DL HEMATOCRIT (test code = 1004) 36.2 % MCV (test code = 1005) 68.3 fL MCH (test code = 1006) 21.1 PG MCHC (test code = 1007) 30.9 G/DL RDW (test code = 1038) 19.4 % NEUTROPHILS (test code = 1008) 62.0 % LYMPHOCYTES (test code = 1010) 28.0 % MONOCYTES (test code = 1011) 7.3 % EOSINOPHILS (test code = 1012) 1.9 % BASOPHILS (test code = 1013) 0.5 % IMMATURE GRANULOCYTES (test code = 1036) 0.3 % NUCLEATED RBCS (test code = 1065) 0.0 /100WBC'S PLATELET COUNT (test code = 1015) 463 K/UL ABSOLUTE NEUTROPHILS (test code = 1066) 4.56 K/UL ABSOLUTE LYMPHOCYTES (test code = 1067) 2.06 K/UL ABSOLUTE MONOCYTES (test code = 1068) 0.54 K/UL ABSOLUTE EOSINOPHILS (test code = 1040) 0.14 K/UL ABSOLUTE BASOPHILS (test code = 1069) 0.04 K/UL ABS IMMATURE GRANULOCYTES (test code = 1020) 0.02 K/UL ABS NUCLEATED RBCS (test code = 27095) 0.00 K/UL BLOOD TYPE AND RH (test code = 3901) B POSITIVE ANTIBODY SCREEN (test code = 3902) NEGATIVE RUBELLA ANTIBODY SCREEN (test code = 4600) 177 IU/ML RUBELLA IgG INTERP (test code = 48550) REACTIVE HEPATITIS B SURF AG (test code = 2739) NON-REACTIVE RPR (test code = 84466) NON-REACTIVE RPR TITER (test code = 3500) NOT INDIC. TITER HIV 1/2 4TH GEN, RFLX CONF (test code = 3514) NON-REACTIVE Topher MichelHEPATITIS C [id number] 00:00:00* Test Item Value Reference Range Interpretation Comme nts HEPATITIS C ANTIBODY (test c ode = 4675) NON-REACTIVE Topher MichelPAP TEST, THINPREP, [id number] 00:00:00* Test Item Value Reference Range Interpretation Comme nts SOURCE: (test code = 8001) Cervical/Endocervical SLIDES: (test code = 8011) 2 LMP: (test code = 8021) 05/27/2023 SPECIMEN ADEQUACY: (test code = 03817) (NOTE) INTERPRETATION: (test code = 92422) NILM/NO EPITH. ABNORMALITY;SEE BELOW OTHER COMMENTS: (test code = 8081) (NOTE) BAKER SECOND: (test code = 8101) Jennifer Martell, CT(ASCP) QC TECHNOLOGIST: (test code = 8111) Johnnie Vergara,SCT(ASCP)IAC LOCATION: (test code = 27001) (NOTE) CPT: (test code = 8140) (NOTE) Topher MichelVARICELLA ZOSTER [id number] 00:00:00* Test Item Value Reference Range Interpretation Comme nts VARICELLA ZOSTER IgG (test c ode = 27377) 1182 INDEX Topher MichelDRUG ABUSE SCREEN 10 REFLEX [id number] 00:00:00* Test Item Value Reference Range Interpretation Comme nts AMPHETAMINES (test code = 3201) NEGATIVE BARBITURATES (test code = 3202) NEGATIVE BENZODIAZEPINES (test code = 3203) NEGATIVE CANNABINOIDS (test code = 3204) NEGATIVE COCAINE METABOLITE (test cod e = 3205) NEGATIVE OPIATES (test code = 3209) NEGATIVE OXYCODONE (test code = 70438) NEGATIVE PHENCYCLIDINE (test code = 3210) NEGATIVE METHADONE (test code = 3207) NEGATIVE BUPRENORPHINE (test code = 80580) NEGATIVE SOURCE (test code = 617897) URINE Topher MichelHCG, [id number] 00:00:00* Test Item Value Reference Range Interpretation Comme nts HCG, QUANTITATIVE (test code = 2506) 48030 MIU/ML Topher [id number] 00:00:00* Test Item Value Reference Range Interpretation Comme nts RPR RESULT (test code = 3501) NON-REACTIVE RPR TITER (test code = 3500) NOT INDIC. TITER Topher MichelOBSTETRIC PANEL + [id number] 00:00:00* Test Item Value Reference Range Interpretation Comme nts WBC (test code = 1001) 7.4 K/UL RBC (test code = 1002) 5.30 M/UL HEMOGLOBIN (test code = 1003) 11.2 G/DL HEMATOCRIT (test code = 1004) 36.2 % MCV (test code = 1005) 68.3 fL MCH (test code = 1006) 21.1 PG MCHC (test code = 1007) 30.9 G/DL RDW (test code = 1038) 19.4 % NEUTROPHILS (test code = 1008) 62.0 % LYMPHOCYTES (test code = 1010) 28.0 % MONOCYTES (test code = 1011) 7.3 % EOSINOPHILS (test code = 1012) 1.9 % BASOPHILS (test code = 1013) 0.5 % IMMATURE GRANULOCYTES (test code = 1036) 0.3 % NUCLEATED RBCS (test code = 1065) 0.0 /100WBC'S PLATELET COUNT (test code = 1015) 463 K/UL ABSOLUTE NEUTROPHILS (test code = 1066) 4.56 K/UL ABSOLUTE LYMPHOCYTES (test code = 1067) 2.06 K/UL ABSOLUTE MONOCYTES (test code = 1068) 0.54 K/UL ABSOLUTE EOSINOPHILS (test code = 1040) 0.14 K/UL ABSOLUTE BASOPHILS (test code = 1069) 0.04 K/UL ABS IMMATURE GRANULOCYTES (test code = 1020) 0.02 K/UL ABS NUCLEATED RBCS (test code = 68895) 0.00 K/UL BLOOD TYPE AND RH (test code = 3901) B POSITIVE ANTIBODY SCREEN (test code = 3902) NEGATIVE RUBELLA ANTIBODY SCREEN (test code = 4600) 177 IU/ML RUBELLA IgG INTERP (test code = 09665) REACTIVE HEPATITIS B SURF AG (test code = 2739) NON-REACTIVE RPR (test code = 50914) NON-REACTIVE RPR TITER (test code = 3500) NOT INDIC. TITER HIV 1/2 4TH GEN, RFLX CONF (test code = 3514) NON-REACTIVE Topher MichelHEPATITIS C [id number] 00:00:00* Test Item Value Reference Range Interpretation Comme nts HEPATITIS C ANTIBODY (test c ode = 4675) NON-REACTIVE Topher MichelPAP TEST, THINPREP, [id number] 00:00:00* Test Item Value Reference Range Interpretation Comme nts SOURCE: (test code = 8001) Cervical/Endocervical SLIDES: (test code = 8011) 2 LMP: (test code = 8021) 05/27/2023 SPECIMEN ADEQUACY: (test code = 01455) (NOTE) INTERPRETATION: (test code = 95385) NILM/NO EPITH. ABNORMALITY;SEE BELOW OTHER COMMENTS: (test code = 8081) (NOTE) BAKER SECOND: (test code = 8101) Jennifer Martell, CT([facility]) QC TECHNOLOGIST: (test code = 8111) Johnnie Vergara,SCT([facility])IAC LOCATION: (test code = 70920) (NOTE) CPT: (test code = 8140) (NOTE) Topher MichelVARICELLA ZOSTER [id number] 00:00:00* Test Item Value Reference Range Interpretation Comme nts VARICELLA ZOSTER IgG (test c ode = 17923) 1182 INDEX Topher MichelDRUG ABUSE SCREEN 10 REFLEX [id number] 00:00:00* Test Item Value Reference Range Interpretation Comme nts AMPHETAMINES (test code = 3201) NEGATIVE BARBITURATES (test code = 3202) NEGATIVE BENZODIAZEPINES (test code = 3203) NEGATIVE CANNABINOIDS (test code = 3204) NEGATIVE COCAINE METABOLITE (test cod e = 3205) NEGATIVE OPIATES (test code = 3209) NEGATIVE OXYCODONE (test code = 18786) NEGATIVE PHENCYCLIDINE (test code = 3210) NEGATIVE METHADONE (test code = 3207) NEGATIVE BUPRENORPHINE (test code = 88194) NEGATIVE SOURCE (test code = 605486) URINE Topher MichelHCG, [id number] 00:00:00* Test Item Value Reference Range Interpretation Comme nts HCG, QUANTITATIVE (test code = 2506) 16173 MIU/ML Topher [id number] 00:00:00* Test Item Value Reference Range Interpretation Comme nts RPR RESULT (test code = 3501) NON-REACTIVE RPR TITER (test code = 3500) NOT INDIC. TITER Topher MichelHPV HIGH RISK WITH GENOTYPE, [id number] 15:53:01* Test Item Value Reference Range Interpretation Comme nts HPV HIGH RISK INTERP (test code = 46379) POSITIVE NEGATIVE A HPV 16 (test code = 09679) NEGATIVE HPV 18 (test code = 84166) NEGATIVE HPV, HR, OTHER GENOTYPES (test code = 87878) POSITIVE A Testing methodol ogy is real-time [...] TESTING PERFORMED AT [facility] [address] [place] [address] DIRECTOR INTERNAL AUDIT: SUSAN YANEZ M.D. CLIA NUMBER [id number] [facility] [place]. [id number] CULTURE, [id number] 12:58:34SPECIMEN NUMBER: [id number] CULTURE, URINE SPECIMEN NUMBER: [id number] SPECIMEN COMMENT: URINE SOURCE: URINE REPORT STATUS: FINAL ISOLATE NUMBER 1: ORGANISM: 07/30/2023 >100,000 CFU/ML GRAM NEGATIVE BACILLI IDENTIFICATION: 07/31/2023 ESCHERICHIA COLI E. COLI AMOXICILLIN/CA SENSITIVE <=8/4AMPICILLIN RESISTANT >16CEFAZOLIN SENSITIVE <=2CEFTRIAXONE SENSITIVE <=1CIPROFLOXACIN SENSITIVE <=1LEVOFLOXACIN SENSITIVE <=2NITROFURANTOIN SENSITIVE <=32PIP/TAZOBAC SENSITIVE <=16TETRACYCLINE SENSITIVE <=4TOBRAMYCIN SENSITIVE <=4TRIMETH/SULFA SENSITIVE <=2/38NOTE: NUMBERS DISPLAYED REPRESENT MINIMUM INHIBITORY CONCENTRATION (ALMITA) WHICH IS EXPRESSED IN MCG/ML.CT/NG, NAAT, [id number] 12:21:07* Test Item Value Reference Range Interpretation Comme nts CHLAMYDIA, NAAT, THINPREP (test code = 05161) POSITIVE NEGATIVE A Testing is perfo rmed with the [employer] 6800/8800 systems usingreal-time Polymerase Chain Reaction (PCR) method. GONORRHEA, NAAT, THINPREP (test code = 73940) NEGATIVE NEGATIVE A negative resul t does not exclude low level infection, specimensampling error, or collection error. Testing is performed with the [employer] 6800/8800 systems usingreal-time Polymerase Chain Reaction (PCR) method. CULTURE, [id number] 00:00:00* Test Item Value Reference Range Interpretation Comme nts CULTURE, URINE (test code = 55205) SPECIMEN NUMBER: [id number] Topher MichelGC AND CHLAMYDIA AMPLIFIED, [id number] 00:00:00* Test Item Value Reference Range Interpretation Comme nts CHLAMYDIA, NAAT, THINPREP (t est code = 55465) POSITIVE GONORRHEA, NAAT, THINPREP (t est code = 62993) NEGATIVE Topher MichelHPV HIGH RISK WITH GENOTYPE, [id number] 00:00:00* Test Item Value Reference Range Interpretation Comme nts HPV HIGH RISK INTERP (test c ode = 63163) POSITIVE HPV 16 (test code = 47160) NEGATIVE HPV 18 (test code = 28991) NEGATIVE HPV, HR, OTHER GENOTYPES (te st code = 25510) POSITIVE Topher MichelCULTURE, [id number] 00:00:00* Test Item Value Reference Range Interpretation Comme nts CULTURE, URINE (test code = 91119) SPECIMEN NUMBER: [id number] Topher Aguillon AustinGC AND CHLAMYDIA AMPLIFIED, [id number] 00:00:00* Test Item Value Reference Range Interpretation Comme nts CHLAMYDIA, NAAT, THINPREP (t est code = 55181) POSITIVE GONORRHEA, NAAT, THINPREP (t est code = 67532) NEGATIVE Topher MichelHPV HIGH RISK WITH GENOTYPE, [id number] 00:00:00* Test Item Value Reference Range Interpretation Comme nts HPV HIGH RISK INTERP (test c ode = 94858) POSITIVE HPV 16 (test code = 52257) NEGATIVE HPV 18 (test code = 02625) NEGATIVE HPV, HR, OTHER GENOTYPES (te st code = 00959) POSITIVE Topher MichelCULTURE, [id number] 00:00:00* Test Item Value Reference Range Interpretation Comme nts CULTURE, URINE (test code = 80409) SPECIMEN NUMBER: [id number] Topher Aguillon AustinGC AND CHLAMYDIA AMPLIFIED, [id number] 00:00:00* Test Item Value Reference Range Interpretation Comme nts CHLAMYDIA, NAAT, THINPREP (t est code = 00343) POSITIVE GONORRHEA, NAAT, THINPREP (t est code = 82802) NEGATIVE Topher MichelHPV HIGH RISK WITH GENOTYPE, [id number] 00:00:00* Test Item Value Reference Range Interpretation Comme nts HPV HIGH RISK INTERP (test c ode = 35990) POSITIVE HPV 16 (test code = 48249) NEGATIVE HPV 18 (test code = 43659) NEGATIVE HPV, HR, OTHER GENOTYPES (te st code = 94869) POSITIVE Topher Aguillon AustinGC AND CHLAMYDIA AMPLIFIED, [id number] 00:00:00* Test Item Value Reference Range Interpretation Comme nts CHLAMYDIA, NAAT, THINPREP (t est code = 58982) POSITIVE GONORRHEA, NAAT, THINPREP (t est code = 80512) NEGATIVE Topher MichelCULTURE, [id number] 00:00:00* Test Item Value Reference Range Interpretation Comme nts CULTURE, URINE (test code = 53972) SPECIMEN NUMBER: [id number] Topher MichelHPV HIGH RISK WITH GENOTYPE, [id number] 00:00:00* Test Item Value Reference Range Interpretation Comme nts HPV HIGH RISK INTERP (test c ode = 60272) POSITIVE HPV 16 (test code = 39443) NEGATIVE HPV 18 (test code = 39194) NEGATIVE HPV, HR, OTHER GENOTYPES (te st code = 17247) POSITIVE Topher MichelCULTURE, [id number] 00:00:00* Test Item Value Reference Range Interpretation Comme nts CULTURE, URINE (test code = 47601) SPECIMEN NUMBER: [id number] Topher Aguillon AustinGC AND CHLAMYDIA AMPLIFIED, [id number] 00:00:00* Test Item Value Reference Range Interpretation Comme nts CHLAMYDIA, NAAT, THINPREP (t est code = 40025) POSITIVE GONORRHEA, NAAT, THINPREP (t est code = 92750) NEGATIVE Topher Aguillon AustinHPV HIGH RISK WITH GENOTYPE, [id number] 00:00:00* Test Item Value Reference Range Interpretation Comme nts HPV HIGH RISK INTERP (test c ode = 57071) POSITIVE HPV 16 (test code = 94317) NEGATIVE HPV 18 (test code = 10829) NEGATIVE HPV, HR, OTHER GENOTYPES (te st code = 10103) POSITIVE Topher Aguillon AustinGC AND CHLAMYDIA AMPLIFIED, [id number] 00:00:00* Test Item Value Reference Range Interpretation Comme nts CHLAMYDIA, NAAT, THINPREP (t est code = 71139) POSITIVE GONORRHEA, NAAT, THINPREP (t est code = 59881) NEGATIVE Topher MichelCULTURE, [id number] 00:00:00* Test Item Value Reference Range Interpretation Comme nts CULTURE, URINE (test code = 33790) SPECIMEN NUMBER: [id number] Topher Aguillon AustinHPV HIGH RISK WITH GENOTYPE, [id number] 00:00:00* Test Item Value Reference Range Interpretation Comme nts HPV HIGH RISK INTERP (test c ode = 68879) POSITIVE HPV 16 (test code = 85220) NEGATIVE HPV 18 (test code = 32310) NEGATIVE HPV, HR, OTHER GENOTYPES (te st code = 37815) POSITIVE Topher MichelCULTURE, [id number] 00:00:00* Test Item Value Reference Range Interpretation Comme nts CULTURE, URINE (test code = 00278) SPECIMEN NUMBER: [id number] Topher MichelGC AND CHLAMYDIA AMPLIFIED, [id number] 00:00:00* Test Item Value Reference Range Interpretation Comme nts CHLAMYDIA, NAAT, THINPREP (t est code = 57235) POSITIVE GONORRHEA, NAAT, THINPREP (t est code = 13026) NEGATIVE Topher MichelHPV HIGH RISK WITH GENOTYPE, [id number] 00:00:00* Test Item Value Reference Range Interpretation Comme nts HPV HIGH RISK INTERP (test c ode = 88107) POSITIVE HPV 16 (test code = 70681) NEGATIVE HPV 18 (test code = 03575) NEGATIVE HPV, HR, OTHER GENOTYPES (te st code = 07736) POSITIVE Topher MichelVAGINAL PATHOGENS DNA [id number] 10:31:23* Test Item Value Reference Range Interpretation Comme nts BROOKE SPECIES (test code = ) NEGATIVE NEGATIVE G. VAGINALIS (test code = 74060) POSITIVE NEGATIVE A T. VAGINALIS (test code = 27937) NEGATIVE NEGATIVE Note: The [employer]rot Project VPIII Microbial Identification Testis a DNA probe test intended for use in the detectionand identification of Brooke species, Gardnerellavaginalis and Trichomonas vaginalis nucleic acid. UNLESS OTHERWISE INDICATED, ALL TESTING PERFORMED AT [facility] [address] [place] [address] DIRECTOR INTERNAL AUDIT: SUSAN YANEZ M.D. CLIA NUMBER [id number] [place]. [id number] VAGINAL PATHOGENS DNA PANEL [ADDED]2023-07-30 00:00:00* Test Item Value Reference Range Interpretation Comme nts BROOKE SPECIES (test code = 29529) NEGATIVE G. VAGINALIS (test code = 93926) POSITIVE T. VAGINALIS (test code = 83634) NEGATIVE Topher Aguillon AustinVAGINAL PATHOGENS DNA PANEL [ADDED]2023-07-30 00:00:00* Test Item Value Reference Range Interpretation Comme nts BROOKE SPECIES (test code = 08760) NEGATIVE G. VAGINALIS (test code = 00020) POSITIVE T. VAGINALIS (test code = 50371) NEGATIVE Topher Aguillon AustinVAGINAL PATHOGENS DNA PANEL [ADDED]2023-07-30 00:00:00* Test Item Value Reference Range Interpretation Comme nts BROOKE SPECIES (test code = 44543) NEGATIVE G. VAGINALIS (test code = 14604) POSITIVE T. VAGINALIS (test code = 98171) NEGATIVE Topher Aguillon AustinVAGINAL PATHOGENS DNA PANEL [ADDED]2023-07-30 00:00:00* Test Item Value Reference Range Interpretation Comme nts BROOKE SPECIES (test code = 54738) NEGATIVE G. VAGINALIS (test code = 01018) POSITIVE T. VAGINALIS (test code = 32777) NEGATIVE Topher Aguillon AustinVAGINAL PATHOGENS DNA PANEL [ADDED]2023-07-30 00:00:00* Test Item Value Reference Range Interpretation Comme nts BROOKE SPECIES (test code = ) NEGATIVE G. VAGINALIS (test code = 98471) POSITIVE T. VAGINALIS (test code = 99715) NEGATIVE Topher Aguillon AustinVAGINAL PATHOGENS DNA PANEL [ADDED]2023-07-30 00:00:00* Test Item Value Reference Range Interpretation Comme nts BROOKE SPECIES (test code = 48317) NEGATIVE G. VAGINALIS (test code = 62643) POSITIVE T. VAGINALIS (test code = 83936) NEGATIVE Topher Aguillon AustinVAGINAL PATHOGENS DNA PANEL [ADDED]2023-07-30 00:00:00* Test Item Value Reference Range Interpretation Comme nts BROOKE SPECIES (test code = 21415) NEGATIVE G. VAGINALIS (test code = 11098) POSITIVE T. VAGINALIS (test code = 92531) NEGATIVE Topher Pal Anand
[2024-10-22 00:04] LABS: Specific Gravity 1.007 (1.005-1.030)
[2024-10-22 00:06] LABS: Specific Gravity 1.007 (1.005-1.030); Sqamous Epithelial <5 /HPF (None Seen); Urine Bacteria None Seen /HPF (<20); Urine Bilirubin NEGATIVE (Negative); Urine Blood Negative (Negative); Urine Clarity Turbid (Clear); Urine Color Colorless (Yellow); Urine Culture Reflex Order NOT NEEDED; Urine Glucose NEGATIVE (Negative); Urine Ketones NEGATIVE (Negative); Urine Micro Reflex YN NO BILL MICROSCOPIC; Urine Nitrite NEGATIVE (Negative); Urine Protein NEGATIVE (Negative); Urine RBC <5 /HPF (None Seen); Urine Urobilinogen Normal (Normal); Urine WBC <5 /HPF (<5); Urine pH 6.5 (5.0-7.0)
--- NOTE | 2024-10-22 00:10 | ER ---
Nurse's Notes [facility] Name: Roland Blake Age: 23 yrs Sex: Female : 2000 Arrival Date: 10/21/2024 Time: 22:32 Bed 16 Private MD: Diagnosis: UTI/ Urinary tract infection, site not specified Presentation: 10/21 22:42 Chief complaint: Patient states: I am having burning with urination that started 3 days jb4 ago. Coronavirus screen: At this time, the client does not indicate any symptoms associated with coronavirus-19. Ebola Screen: No symptoms or risks identified at this time. Initial Sepsis Screen: Does the patient meet any 2 criteria? No. Patient's initial sepsis screen is negative. Does the patient have a suspected source of infection? No. Patient's initial sepsis screen is negative. Risk Assessment: Do you want to hurt yourself or someone else? Patient reports no desire to harm self or others. Onset of symptoms was October 18, 2024. Transition of care: patient was not received from another setting of care. 22:42 Method Of Arrival: Ambulatory jb4 22:42 Acuity: REBECCA 3 jb4 Triage Assessment: 22:43 General: Appears in no apparent distress. comfortable, Behavior is calm, cooperative, jb4 appropriate for age. Pain: Complains of pain in pelvis Pain does not radiate. Pain currently is 3 out of 10 on a pain scale. Neuro: Level of Consciousness is awake, alert, obeys commands, Oriented to person, place, time, situation. Cardiovascular: Patient's skin is warm and dry. Respiratory: Airway is patent Respiratory effort is even, unlabored, Respiratory pattern is regular, symmetrical. : Reports burning with urination, since 10/18/24. Derm: Skin is intact, Skin is pink, warm \T\ dry. Musculoskeletal: Circulation, motion, and sensation intact. Range of motion: intact in all extremities. BEADING SAWYER: 22:43 Verified jb4 23:34 Verified sb4 Historical: - Allergies: 22:43 No Known Allergies; jb4 - PMHx: 22:43 Anxiety; depressive disorder; Herpes simplex; self harm; jb4 - Immunization history:: Adult Immunizations up to date. - Infectious Disease History:: Denies. - Social history:: Smoking status: Patient denies any tobacco usage or history of. Screenin:[address] [facility] ED Fall Risk Assessment (Adult) History of falling in the last 3 months, rg5 including since admission No falls in past 3 months (0 pts) Confusion or Disorientation No (0 pts) Intoxicated or Sedated No (0 pts) Impaired Gait No (0 pts) Mobility Assist Device Used No (0 pt) Altered Elimination No (0 pt) Score/Fall Risk Level 0 - 2 = Low Risk Oriented to surroundings, Maintained a safe environment, Hourly rounding (assess needs \T\ fall precautionary measures) done. Abuse screen: Denies threats or abuse. Nutritional screening: No deficits noted. Tuberculosis screening: No symptoms or risk factors identified. Assessment: 22:40 General: Appears in no apparent distress. comfortable, Behavior is calm, cooperative, rg5 appropriate for age. 22:40 Neuro: Level of Consciousness is awake, alert, obeys commands, Oriented to person, rg5 place, time, situation. Cardiovascular: Denies chest pain. Respiratory: Airway is patent Trachea midline Respiratory effort is even, unlabored, Respiratory pattern is regular, symmetrical. GI: Abdomen is round. : Reports burning with urination. EENT: No deficits noted. Derm: Skin is intact, Skin is dry, Skin is normal, Skin temperature is warm. Musculoskeletal: Circulation, motion, and sensation intact. Range of motion: intact in all extremities. 23:15 Reassessment: Patient and/or family updated on plan of care and expected duration. Pain rg5 level reassessed. Patient is alert, oriented x 3, equal unlabored respirations, skin warm/dry/pink. 10/22 00:20 Reassessment: No changes from previously documented assessment. Patient and/or family rg5 updated on plan of care and expected duration. Pain level reassessed. Patient is alert, oriented x 3, equal unlabored respirations, skin warm/dry/pink. Vital Signs: 10/21 22:42 BP 128 / 74; Pulse 80; Resp 16; Temp 97.8(TE); Pulse Ox 100% on R/A; Weight 59.87 kg jb4 (R); Height 5 ft. 6 in. (R); Pain 3/10; 23:45 BP 125 / 81; Pulse 77; Resp 18; Temp 98.3; Pulse Ox 100% on R/A; Pain 0/10; rg5 22:42 Body Mass Index 21.31 (59.87 kg, 167.64 cm) jb4 22:42 Pain Scale: Adult jb4 23:45 Pain Scale: Adult rg5 ED Course: 22:37 Patient arrived in ED. ra3 22:37 Billie Drew PA-C is PHCP. sb4 22:37 Patrick Ghosh MD is Attending Physician. sb4 22:40 Patient has correct armband on for positive identification. Bed in low position. Side rg5 rails up X 1. Door closed. Noise minimized. 22:40 No provider procedures requiring assistance completed. rg5 22:43 Triage completed. jb4 22:43 Arm band placed on right wrist. jb4 23:13 Arias Ramey, RN is Primary Nurse. rg5 10/22 00:23 Patient did not have IV access during this emergency room visit. rg5 00:24 Provided Education on: post er care. rg5 Administered Medications: 00:14 Drug: Macrobid PO 100 mg PO once; administer with food Route: PO; rg5 00:20 Follow up: Response: No adverse reaction rg5 Medication: 10/21 22:40 VIS not applicable for this client. rg5 Outcome: 10/22 00:09 Discharge ordered by . sb4 00:23 Discharged to home ambulatory, rg5 00:23 Condition: stable 00:23 Discharge instructions given to patient, Instructed on discharge instructions, follow up and referral plans. Demonstrated understanding of instructions, follow-up care, medications, Prescriptions given X 1, 00:24 Patient left the ED. rg5 Signatures: Edward Andre, RN RN Billie Lugo PA-C PA-C sb4 Yeimi Tovar ra3 Arias Ramey, RN RN rg5
--- NOTE | 2024-10-22 00:10 | EDPHYS ---
Physician Documentation [facility] Name: Roland Blake Age: 23 yrs Sex: Female : 2000 Arrival Date: 10/21/2024 Time: 22:32 Bed 16 Private MD: ED Physician Patrick Ghosh HPI: 10/21 23:34 This 23 yrs old Female presents to ER via Ambulatory with complaints of sb4 Urinary Problem - burning sensation:8wks preg. 23:34 The patient presents with urinary symptoms, dysuria. Onset: The symptoms/episode sb4 began/occurred 3 day(s) ago. [employer]ER: 22:43 Verified jb4 23:34 Verified sb4 Historical: - Allergies: 22:43 No Known Allergies; jb4 - PMHx: 22:43 Anxiety; depressive disorder; Herpes simplex; self harm; jb4 - Immunization history:: Adult Immunizations up to date. - Infectious Disease History:: Denies. - Social history:: Smoking status: Patient denies any tobacco usage or history of. ROS: 10/22 00:10 Positive for burning with urination, sb4 Constitutional: Negative for fever, chills, and weight loss, All other systems are negative, Exam: 00:10 Constitutional: This is a well developed, well nourished patient who is awake, alert, sb4 and in no acute distress. Head/Face: Normocephalic, atraumatic. Eyes: Extra-ocular motions intact. Periorbital areas with no swelling, redness, or edema. ENT: Mucous membranes moist. Respiratory: No increased work of breathing, no retractions or nasal flaring. Skin: Warm, dry with normal turgor. Normal color with no rashes, no lesions, and no evidence of cellulitis. Vital Signs: 10/21 22:42 BP 128 / 74; Pulse 80; Resp 16; Temp 97.8(TE); Pulse Ox 100% on R/A; Weight 59.87 kg jb4 (R); Height 5 ft. 6 in. (R); Pain 3/10; 23:45 BP 125 / 81; Pulse 77; Resp 18; Temp 98.3; Pulse Ox 100% on R/A; Pain 0/10; rg5 22:42 Body Mass Index 21.31 (59.87 kg, 167.64 cm) jb4 22:42 Pain Scale: Adult jb4 23:45 Pain Scale: Adult rg5 MDM: 22:40 Medical Screening Exam initiated sb4 10/22 00:10 Data reviewed: vital signs, nurses notes, lab test result(s), and as a result, I will sb4 discharge patient. Counseling: I had a detailed discussion with the patient and/or guardian regarding the historical points, exam findings, and any diagnostic results supporting the discharge/admit diagnosis, lab results, to return to the emergency department if symptoms worsen or persist or if there are any questions or concerns that arise at home. 10/21 22:39 Order name: UAM; Complete Time: 00:07 sb4 10/21 22:39 Order name: Test, Urine; Complete Time: 00:07 sb4 10/22 00:07 Order name: Urine Culture sb4 Administered Medications: 00:14 Drug: Macrobid PO 100 mg PO once; administer with food Route: PO; rg5 00:20 Follow up: Response: No adverse reaction rg5 Disposition: 03:07 Co-signature as Attending Physician, Patrick Ghosh MD I agree with the assessment sp4 and plan of care. I reviewed the patient's care provided by the Advanced Practice Provider and agree with the diagnosis and treatment plan. Disposition Summary: 10/22/24 00:09 Discharge Ordered Notes: Location: Home sb4 Problem: new sb4 Symptoms: are unchanged sb4 Condition: Stable sb4 Diagnosis - UTI/ Urinary tract infection, site not specified sb4 Followup: sb4 - With: Private Physician - When: As needed - Reason: Recheck today's complaints, Re-evaluation by your physician Discharge Instructions: - Discharge Summary Sheet sb4 - and Urinary Tract Infection sb4 Forms: - Antibiotic Education sb4 - Patient Portal Instructions sb4 - Leadership Thank You Letter sb4 Prescriptions: - Macrobid 100 mg Oral capsule - take 1 capsule ORAL route every 12 hours for 5 days; 10 capsule; Refills: 0, sb4 Product Selection Permitted Signatures: Dispatcher [employer] Edward Kowalski RN RN jb4 Billie Drew PA-C PA-C sb4 Patrick Ghosh MD MD sp4 Arias Ramey RN RN rg5 Corrections: (The following items were deleted from the chart) 10/21 22:39 22:39 Urinalysis W/Microscopic+U.LAB.BRZ ordered. EDMS EDMS 22:39 Test, Urine+UC.LAB.BRZ ordered. EDMS EDMS
[2024-10-22] MEDS ORDERED: NITROFURAN MACRO 100 MG CAP PO ONE (00:12)
[2024-10-22 00:29] VITALS: O2SAT 100
[2024-10-22 00:30] VITALS: BP 125/81; TEMP 98.3
== END 2024-10-22 00:24 | disposition home or self-care (01) ==
LOC: ER 22:32
DX: O23.41 Unspecified infection of urinary tract in pregnancy, first trimester (principal); Z3A.08 8 weeks gestation of pregnancy
CPT/HCPCS: 81001; 81025; 87086; 87088; 99283

== ENCOUNTER 2025-02-02 15:50 | Emergency (ER) | payer OTHER ==
--- OUTSIDE RECORDS SUMMARY | 2025-02-02 16:02 | XMS REPORT | Continuity of Care Document ---
Author Name Unknown Address [address] [facility] [address] [place] [address] [facility] [place] [facility] [address] 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 Role Phone Janki Zurita Primary Care Physicia n JANKI ARCE Attending Clinician Unavail able SHARRI CLAY Attending Clinician UnavailJanki Mehta Attending Clinician + Sharri Clay CNM Attending Clinician [phone] LENNY HER Attending Clinician Unavailable LENNY HER Attending Clinician Unavailable Ultrasound, Ang-Mfm Attending Clinician Unavaila ble Taina DOLenny Attending Clinician [phone] Doctor Unassigned, [place] Attending Clinician U GODFREY Mcclure Attending Clinician Unav GODFREY Medley Attending Clinician Unav Godfrey Medley MD Attending Clinician + NICHOLE HANSON Attending Clinician Unavailable NICHOLE HANSON Attending Clinician Unavailable Nichole Willard Attending Clinician +[phone] AndradeEmery esqueda MDHTor Attending Clinician + [phone] EMERY ANDRADE Attending Clinician UnavailMAHESH León Attending Clinician Unavailable MAHESH HAGAN Attending Clinician Unavailable Mahesh Hagan MD Attending Clinician [phone] Irvin Encarnacion Attending Clinician [phone] IRVIN DEE Attending Clinician UnavailNICHOLE Chua Admitting Clinician Unavailable Payers Payer Name Policy Type Policy Number Effective Date Expirati on Date Source COMMERCIAL FFS CI [id number] [facility] [id number] 2024 00:00:00 [facility] [id number] 00:00:00 Problems Condition Name Condition Details Condition Category Status Onset Date Resolution Date Last Treatment Date Treating Clinician Comments Source Supervisio n of high-risk Supervisio n of high-risk Disease Active 2023-10 00:00: 00 [facility] History of miscarriag e History of miscarriag e Disease Active 2023-10 00:00: 00 [facility] with history of with history of Disease Active 2023-10 00:00: 00 [facility] Nausea and vomiting in Nausea and vomiting in Disease Active 2023-10 00:00: 00 [facility] No known active problems No known active problems Disease [facility] Allergies, Adverse Reactions, Alerts Allergy Name Allergy Type Status Severity Reaction(s) Onset Date Inactive Date Treating Clinician Comments Source [place] - Intraven ous Propensi ty to adverse reaction to drug Active 6-17 00:00: 00 Topher Michel NO KNOWN ALLERGIE S Drug Class Active [facility] Social History Social Habit Start Date Stop Date Quantity Comments Source ASSERTION 2024-09-07 00:00:00 [facility] Exposure to SARS-CoV-2 (event) Not sure [facility] Alcoholic beverage intake 2025-01-12 00:00:00 2025-01-12 00:00:00 Ex-drinker (finding) [facility] Tobacco use and exposure 2024-07-02 00:00:00 2024-07-02 00:00:00 Smokeless tobacco non-user [facility] History of Social function 2024-07-02 00:00:00 2024-07-02 00:00:00 [facility] Sex assigned at 2001 00:00:00 2000 00:00:00 [facility] Smoking Status Start Date Stop Date Source Tobacco smoking consumption unknown [facility] Never smoked tobacco [facility] Medications Ordered Medication Name Filled Medication Name Start Date Stop Date Current Medication? Ordering Clinician Indication Dosage Frequency Signature (SIG) Comments Components Source Cipro HC 0.2 %-1 % ear drops,suspe nsion - 00:00: 00 Yes 3% Topher Michel montelukast 10 mg tablet - 00:00: 00 Yes 1mg Topher Michel fluticasone propionate 50 mcg/actuati on nasal spray,suspe nsion 01-19 00:00: 00 Yes 1mcg/ac tuation Topher Michel SERTraline (ZOLOFT) 50 mg tablet 3-31 00:00: 00 Yes [id number] 50mg Take 1 tablet by mouth in the morning. [facility] cephalexin 500 mg capsule 3-28 00:00: 00 Yes 1mg Topher Michel amoxicillin 875 mg-potassiu nan clavulanate 125 mg tablet 2-14 00:00: 00 Yes 1mg Topher Michel Flonase Allergy Relief 50 mcg/actuati on nasal spray,suspe nsion 2-12 00:00: 00 Yes 12mcg/a ctuatio n Topher Michel cetirizine 10 mg capsule 2-12 00:00: 00 Yes 1mg Topher Michel Robitussin Cough-Chest Congestion DM 5 mg-50 mg/5 mL oral liquid 2-12 00:00: 00 Yes 10mg/5 mL Topher Michel albuterol sulfate HFA 90 mcg/actuati on aerosol inhaler 2023-10 00:00: 00 Yes 12mcg/a ctuatio n Topher Michel cetirizine 10 mg capsule 2023-10 00:00: 00 Yes 1mg Topher Michel sodium chloride (NS) injection 5 mL 2023-1015 05:33: 25 Yes [id number] 5mL 5 mL, Intravenou s, PRN, Starting on 09/27/24 at 2333, Until Discontinu ed, Routine, IV line flushing [facility] proMETHazin e 25 mg tablet 2023-10 00:00: 00 Yes [id number] 25mg Take 1 tablet by mouth every 6 (six) hours as needed for Nausea and Vomiting (N/V). [facility] PNV 67-iron ps-folate no.1-dha (VITAFOL ULTRA) 29 mg iron- 1 mg-200 mg Cap 2023-10 00:00: 00 Yes [id number] 1{each} Take 1 Each by mouth in the morning. [facility] prednisone 10 mg tablet 02-27 00:00: 00 Yes 1mg Topher Michel Bromfed DM 2 mg-30 mg-10 mg/5 mL oral syrup 02-27 00:00: 00 Yes 10mg/5 mL Topher Michel fluconazole 150 mg tablet -06 00:00: 00 Yes mg Topher Michel metronidazo le 500 mg tablet - 00:00: 00 Yes 1mg Topher Michel hydroxyzine HCl 25 mg tablet 02-06 00:00: 00 Yes 1mg Topher Michel triamcinolo ne acetonide 0.1 % topical ointment 02-06 00:00: 00 Yes 1% Topher Michel mupirocin 2 % topical ointment 02-06 00:00: 00 Yes 1% Topher Michel METRONIDAZO L 02-03 00:00: 00 Yes Topher Michel metronidazo le 500 mg tablet - 00:00: 00 Yes 1mg Topher Michel fluconazole 150 mg tablet -09 00:00: 00 Yes 1mg Topher Michel hydroxyzine HCl 25 mg tablet 01-08 00:00: 00 Yes 1mg Topher Michel TAKE 1 TABLET TWICE DAILY UNTIL GONE. 12-16 00:00: 00 02-26 00:00 :00 No 500 Topher Pal Michel METHYLPRED 00:00: 00 Yes Topher Michel [...] 00:00: 00 02-26 00:00 :00 No 100 Tophermarcelino Michel VALACYCLOVI R 11-21 00:00: 00 Yes [...] 00 02-26 00:00 :00 No 68 Topher Pal Michel BROM/PSE/DM SYP 2022-10 00:00: 00 Yes Topher Michel TAKE 5 ML EVERY 6 HOURS NEEDED. 2022-10 00:00: 00 02-26 00:00 :00 No [id number] Topher Michel TAKE 1 TABLET DAILY. 2022-10 [...] No 500 Topher Michel DICLEGIS 10-10MG 2022-10 0 00:00: 00 Yes Topher Michel TAKE 1 [...] 00 02-26 00:00 :00 No [id number] Topher Michel TAKE 1 TABLET EVERY 8 HOURS NEEDED [...] :00 No 20 Tophermarcelino Michel TAKE 1 TABLET DAILY. 05-23 00:00: 00 02-26 00:00 :00 No 20 Topher Michel TAKE 1 TAB PO DAILY 05-23 00:00: 00 02-26 00:00 :00 No 5 Topher Michel 10 ML Q 4 TO 6 HOURS PRN COUGH FOR 5 DAYS - 00:00: 00 02-26 00:00 :00 No [id number] Topher Michel TAKE 1 TAB PO DAILY 03-19 00:00: 00 02-26 00:00 :00 No 5 Topher Michel TAKE 1 TABLET DAILY. 03-19 00:00: 00 02-26 00:00 :00 No 20 Topher Michel TAKE 1 TABLET BY MOUTH ONCE DAILY 02-21 00:00: 00 Yes Topher Michel TAKE 1 TABLET DAILY. 02-21 00:00: 00 02-26 00:00 :00 No 20 Topher Michel TAKE 1 TAB PO DAILY - 00:00: 00 02-26 00:00 :00 No 5 Topher Michel TAKE 1 TABLET TWICE DAILY WITH FOOD. 02-15 00:00: 00 02-26 00:00 :00 No [id number] Topher Michel TAKE 1 TAB PO DAILY 4- 00:00: 00 02-26 00:00 :00 No 5 Tophermarcelino Michel TAKE 1 TABLET DAILY. - 00:00: 00 02-26 00:00 :00 No 20 Tophermarcelino Michel TAKE 1 TABLET DAILY. - 00:00: 00 02-26 00:00 :00 No 20 Tophermarcelino Michel TAKE 1 TAB PO DAILY 3- 00:00: 00 02-26 00:00 :00 No 5 Tophermarcelino Michel TAKE 1 TABLET BY MOUTH ONCE DAILY 2022-0 2-20 00:00: 00 Yes Topher Michel TAKE [...] 1 TABLET BY MOUTH ONCE DAILY 2022-0 1- 00:00: 00 Yes Topher Michel TAKE 1 TAB PO DAILY 0 1-04 00:00: 00 02-26 00:00 :00 No 5 Topher Michel TAKE 1 TABLET BY MOUTH ONCE DAILY 1 1- 00:00: 00 Yes Topher Michel TAKE 1 TABLET BY MOUTH ONCE DAILY 2021-1 1-02 00:00: 00 Yes Topehr Michel TAKE 1 CAPSULE BY MOUTH TWICE DAILY 2021-1 0-31 00:00: 00 Yes Topher Michel TAKE [...] BY MOUTH TWICE DAILY NEEDED FOR ANXIETY 2021-0 -20 00:00: 00 Yes 5 Topher Michel Dose Unknown 20204-14 00:00: 00 Yes Topher Michel Vistaril 25 mg capsule 04-13 00:00: 00 Yes 1mg Topher Michel Dose Unknown 04-13 00:00: 00 Yes Topher [...] 00 Yes 1mg Topher Michel Dose Unknown 01-27 00:00: 00 Yes Topher Michel LORazepam (ATIVAN) tablet 0.5 mg 01-14 00:24: 00 01-14 00:46 :00 No .5mg 0.5 mg, Oral, ONCE, 1 dose, On Sun01/13/22 at 1930, ALEJANDRO [facility] No known medications 01-13 19:38: 26 No [facility] Paxil 20 mg tablet 01-13 00:00: 00 [...] SARS-COV-2 COVID-19 PFIZER VACCINE 2021-06-09 00:00:00 Completed [facility] SARS-COV-2 COVID-19 PFIZER VACCINE 2021-06-09 00:00:00 Completed [facility] SARS-COV-2 COVID-19 PFIZER VACCINE 2021-06-09 00:00:00 Completed [facility] SARS-COV-2 COVID-19 PFIZER VACCINE 2021-06-09 00:00:00 Completed [facility] SARS-COV-2 COVID-19 PFIZER VACCINE 2021-06-09 00:00:00 Completed [facility] SARS-COV-2 COVID-19 PFIZER VACCINE 2021-05-19 00:00:00 Completed [facility] SARS-COV-2 COVID-19 PFIZER VACCINE 2021-05-19 00:00:00 Completed [facility] SARS-COV-2 COVID-19 PFIZER VACCINE 2021-05-19 00:00:00 Completed [facility] SARS-COV-2 COVID-19 PFIZER VACCINE 2021-05-19 00:00:00 Completed [facility] SARS-COV-2 COVID-19 PFIZER VACCINE 2021-05-19 00:00:00 Completed [facility] SARS-COV-2 COVID-19 PFIZER VACCINE Unknown Completed [facility] SARS-COV-2 COVID-19 PFIZER VACCINE Unknown Completed [facility] Vital Signs Vital Name Observation Time Observation Value Comments S ource Systolic blood pressure 2025-01-20 20:30:00 112 mm[Hg] [facility] Diastolic blood pressure 2025-01-20 20:30:00 66 mm[Hg] [facility] Heart rate 2025-01-20 20:30:00 73 /min [facility] Body temperature 2025-01-20 20:30:00 36.11 Radha [facility] Respiratory rate 2025-01-20 20:30:00 18 /min [facility] Body height 2025-01-20 20:30:00 167.6 cm [facility] Body weight 2025-01-20 20:30:00 59.875 kg [facility] BMI 2025-01-20 20:30:00 21.31 kg/m2 [facility] Systolic blood pressure 2025-01-12 20:20:00 116 mm[Hg] [facility] Diastolic blood pressure 2025-01-12 20:20:00 80 mm[Hg] [facility] Heart rate 2025-01-12 20:20:00 81 /min [facility] Body temperature 2025-01-12 20:20:00 36.56 Radha [facility] Respiratory rate 2025-01-12 20:20:00 18 /min [facility] Body height 2025-01-12 20:20:00 167.6 cm [facility] Body weight 2025-01-12 20:20:00 58.968 kg [facility] BMI 2025-01-12 20:20:00 20.98 kg/m2 [facility] Systolic blood pressure 2024-12-16 15:44:00 109 mm[Hg] [facility] Diastolic blood pressure 2024-12-16 15:44:00 62 mm[Hg] [facility] Heart rate 2024-12-16 15:44:00 74 /min [facility] Body temperature 2024-12-16 15:44:00 36.72 Radha [facility] Respiratory rate 2024-12-16 15:44:00 18 /min [facility] Body weight 2024-12-16 15:44:00 58.559 kg [facility] BMI 2024-12-16 15:44:00 20.84 kg/m2 [facility] Systolic blood pressure 2024-11-18 16:57:00 112 mm[Hg] [facility] Diastolic blood pressure 2024-11-18 16:57:00 65 mm[Hg] [facility] Heart rate 2024-11-18 16:57:00 87 /min [facility] Body temperature 2024-11-18 16:57:00 36.78 Radha [facility] Respiratory rate 2024-11-18 16:57:00 16 /min [facility] Body height 2024-11-18 16:57:00 167.6 cm [facility] Body weight 2024-11-18 16:57:00 59.648 kg [facility] BMI 2024-11-18 16:57:00 21.22 kg/m2 [facility] Systolic blood pressure 2024-10-21 13:48:00 108 mm[Hg] [facility] Diastolic blood pressure 2024-10-21 13:48:00 63 mm[Hg] [facility] Heart rate 2024-10-21 13:48:00 85 /min [facility] Body temperature 2024-10-21 13:48:00 36.17 Radha [facility] Respiratory rate 2024-10-21 13:48:00 15 /min [facility] Body height 2024-10-21 13:48:00 167.6 cm [facility] Body weight 2024-10-21 13:48:00 60.102 kg [facility] BMI 2024-10-21 13:48:00 21.39 kg/m2 [facility] Systolic blood pressure 2024-09-28 09:00:00 99 mm[Hg] [facility] Diastolic blood pressure 2024-09-28 09:00:00 83 mm[Hg] [facility] Heart rate 2024-09-28 09:00:00 89 /min [facility] Respiratory rate 2024-09-28 09:00:00 16 /min [facility] Oxygen saturation in Arterial blood by Pulse oximetry 2024-09-28 09:00:00 100 /min [facility] Body temperature 2024-09-28 05:25:00 37 Radha [facility] Body height 2024-09-28 05:25:00 167.6 cm [facility] Body weight 2024-09-28 05:25:00 61.508 kg [facility] BMI 2024-09-28 05:25:00 21.89 kg/m2 [facility] Systolic blood pressure 2024-09-23 15:19:00 110 mm[Hg] [facility] Diastolic blood pressure 2024-09-23 15:19:00 62 mm[Hg] [facility] Heart rate 2024-09-23 15:19:00 81 /min [facility] Body temperature 2024-09-23 15:19:00 36.72 Radha [facility] Respiratory rate 2024-09-23 15:19:00 16 /min [facility] Body height 2024-09-23 15:19:00 167.6 cm [facility] Body weight 2024-09-23 15:19:00 63.458 kg [facility] BMI 2024-09-23 15:19:00 22.58 kg/m2 [facility] Systolic blood pressure 2024-07-02 20:56:00 123 mm[Hg] [facility] Diastolic blood pressure 2024-07-02 20:56:00 79 mm[Hg] [facility] Heart rate 2024-07-02 20:56:00 73 /min [facility] Respiratory rate 2024-07-02 20:56:00 19 /min [facility] Body height 2024-07-02 20:56:00 167.6 cm [facility] Body weight 2024-07-02 20:56:00 58.605 kg [facility] BMI 2024-07-02 20:56:00 20.85 kg/m2 [facility] Oxygen saturation in Arterial blood by Pulse oximetry 2024-07-02 20:56:00 100 /min [facility] Systolic blood pressure 2024-07-02 03:25:00 130 mm[Hg] [facility] Diastolic blood pressure 2024-07-02 03:25:00 56 mm[Hg] [facility] Heart rate 2024-07-02 03:25:00 73 /min [facility] Body temperature 2024-07-02 03:25:00 37.28 Radha [facility] Respiratory rate 2024-07-02 03:25:00 16 /min [facility] Oxygen saturation in Arterial blood by Pulse oximetry 2024-07-02 03:25:00 100 /min [facility] Body height 2024-07-02 00:06:00 167.6 cm [facility] Body weight 2024-07-02 00:06:00 59.875 kg [facility] BMI 2024-07-02 00:06:00 21.31 kg/m2 [facility] Systolic blood pressure 2022-01-14 00:46:45 142 mm[Hg] [facility] Diastolic blood pressure 2022-01-14 00:46:45 89 mm[Hg] [facility] Heart rate 2022-01-14 00:46:45 95 /[facility] 2022-01-14 00:46:45 20 /min [facility] Oxygen saturation in Arterial blood by Pulse oximetry 2022-01-14 00:46:45 98 /min [facility] Body temperature 2022-01-13 23:47:00 36.67 Radha [facility] Body height 2022-01-13 23:47:00 167.6 cm [facility] Body weight 2022-01-13 23:47:00 48.988 kg [facility] BMI 2022-01-13 23:47:00 17.43 kg/m2 [facility] BP Systolic 2025-01-24 09:47:00 106 mm[Hg] Step marcelino Michel BP Diastolic 2025-01-24 09:47:00 73 mm[Hg] Darrick Michel Weight Measured 2025-01-24 09:47:00 130.00 pounds Topher Michel Height Measured 2025-01-24 09:47:00 66.00 inches Topher Michel Body Temperature 2025-01-24 09:47:00 98.90 degrees Topher F Anand Heart Rate 2025-01-24 09:47:00 96.00 /min Nicci en F Anand Respiratory Rate 2025-01-24 09:47:00 18.00 /min Topher F Anand BP Systolic 2025-01-16 17:18:00 106 mm[Hg] Step hen F Anand BP Diastolic 2025-01-16 17:18:00 66 mm[Hg] Darrick phen F Anand Weight Measured 2025-01-16 17:18:00 134.40 pounds Topher F Anand Height Measured 2025-01-16 17:18:00 66.00 inches Topher F Anand Body Temperature 2025-01-16 17:18:00 98.20 degrees Topher F Anand Heart Rate 2025-01-16 17:18:00 85.00 /min Nicci en F Anand Respiratory Rate 2025-01-16 17:18:00 18.00 /min Topher F Anand BP Systolic 2025-01-09 14:06:00 116 mm[Hg] Step hen F Anand BP Diastolic 2025-01-09 14:06:00 67 mm[Hg] Darrick phen F Anand Weight Measured 2025-01-09 14:06:00 131.40 pounds Topher F Anand Height Measured 2025-01-09 14:06:00 66.00 inches Topher F Anand Body Temperature 2025-01-09 14:06:00 98.90 degrees Topher F Anand Heart Rate 2025-01-09 14:06:00 76.00 /min Nicci en F Anand Respiratory Rate 2025-01-09 14:06:00 19.00 /min Topher F Anand BP Systolic 2024-11-28 15:37:00 111 mm[Hg] Step hen F Anand BP Diastolic 2024-11-28 15:37:00 70 mm[Hg] Darrick phen F Anand Weight Measured 2024-11-28 15:37:00 126.80 pounds Topher F Anand Height Measured 2024-11-28 15:37:00 66.00 inches Topher F Anand Body Temperature 2024-11-28 15:37:00 98.10 degrees Topher F Anand Heart Rate 2024-11-28 15:37:00 82.00 /min Nicci en F Anand Respiratory Rate 2024-11-28 15:37:00 18.00 /min Topher F Anand BP Systolic 2024-11-26 15:05:00 112 mm[Hg] Step hen F Anand BP Diastolic 2024-11-26 15:05:00 73 mm[Hg] Darrick phen F Anand Weight Measured 2024-11-26 15:05:00 126.00 pounds Topher F Anand Height Measured 2024-11-26 15:05:00 66.00 inches Topher F Anand Body Temperature 2024-11-26 15:05:00 99.50 degrees Topher F Anand Heart Rate 2024-11-26 15:05:00 95.00 /min Nicci en F Anand Respiratory Rate 2024-11-26 15:05:00 18.00 /min Topher F Anand BP Systolic 2024-10-03 14:57:00 106 mm[Hg] Step [...] 2024-02-13 13:39:00 73 mm[Hg] Darrick phen F Annad Weight Measured 2024-02-13 13:39:00 132.40 pounds Topher F Anand Height Measured 2024-02-13 13:39:00 66.00 inches Tohper F Anand Body Temperature 2024-02-13 13:39:00 98.30 [...] 2023-10-23 16:15:00 124 mm[Hg] Step hen F Annad BP Diastolic 2023-10-23 16:15:00 76 mm[Hg] Darrick [...] Time Performed Performing Clinician Source POCT URINALYSIS 2025-01-20 20:31:00 Janki Arce [facility] POCT URINALYSIS 2025-01-12 20:27:00 Janki Arce [facility] SECOND AND THIRD TRIMESTER ULTRASOUND 2025-01-12 20:15:00 Janki Arce [facility] POCT URINALYSIS 2024-12-16 15:45:00 Janki Arce [facility] NIPT - NON-INVASIVE TEST RESULTS 2024-11-26 13:16:05 Doctor Unassigned, [place] [facility] NIPT - NON-INVASIVE TEST RESULTS 2024-11-24 15:59:55 Doctor Unassigned, [place] [facility] POCT URINALYSIS 2024-11-18 16:58:00 Janki Arce [facility] FIRST TRIMESTER ULTRASOUND 2024-10-28 20:50:00 Janki Arce [facility] POCT URINALYSIS 2024-10-21 13:50:00 Janki Arce [facility] US FIRST TRIMESTER LESS THAN 14 WEEKS WITH TRANSVAGINAL 2024-09-28 08:24:18 [facility] LIPASE 2024-09-28 06:03:00 [facility] COMP. METABOLIC PANEL ([id number]) 2024-09-28 06:03:00 [facility] CBC WITH DIFF 2024-09-28 06:03:00 [facility] URINALYSIS 2024-09-28 06:03:00 Nichole Hanson [facility] POCT TEST 2024-09-23 15:18:00 Tae Arce [facility] POCT URINALYSIS W/O SPECIFIC GRAVITY 2024-09-23 15:18:00 Janki Arce [facility] TRANSTHORACIC ECHO (TTE) COMPLETE 2024-07-16 20:45:47 Emery Andrade [facility] POCT TEST 2024-07-02 02:16:00 Mahesh Hagan [facility] [id number] Colposcopy Entire Vagina W/vagina/cervix Bx 2024-02-13 00:00:00 Topher Michel NOTICE OF PRIVACY PRACTICES 2022-01-13 23:24:42 Doctor Unassigned, [place] [facility] CONSENT/REFUSAL FOR DIAGNOSIS AND TREATMENT 2022-01-13 23:23:10 Doctor Unassigned, [place] [facility] Encounters Start Date/Time End Date/Time Encounter Type Admission Type Attending Clinicians Care Facility Care Department Encounter ID Source 2023-09-25 16:50:01 Outpatient GEMINI SINGLETARY [id number] [facility] 2022-07-28 21:09:46 Outpatient [facility] [id number] [facility] 2025-01-27 13:18:26 2025-01-27 13:18:26 Outpatient SFA SFA [id number] Topher Michel 2025-01-24 09:34:02 2025-01-24 09:34:02 Outpatient SFA SFA [id number] Topher Michel 2025-01-24 00:00:00 2025-01-24 00:00:00 Outpatient Visit [facility] [id number] Topher Michel 2025-01-20 15:15:00 2025-01-20 15:43:15 Outpatient R SHARRI CLAY [facility] [id number] [facility] 2025-01-20 15:15:00 2025-01-20 15:43:15 Routine Visit Janki Arce Brenda A [facility] GRAY MIXING OPERATOR [facility] & CHILD [facility] ..[id number] [facility] 2025-01-16 17:10:54 2025-01-16 17:10:54 Outpatient SFA [facility] [id number] Topher Michel 2025-01-13 00:00:00 2025-01-13 14:52:51 Abstract Janki Arce [facility] GRAY MIXING OPERATOR [facility] & CHILD [facility] ..840.114 [id number] [facility] 2025-01-12 15:00:00 2025-01-12 15:46:50 Routine Visit Janki Arce [facility] GRAY MIXING OPERATOR [facility] & CHILD [facility] ..[id number] [facility] 2025-01-12 14:00:00 2025-01-12 15:18:53 Outpatient R TAINA, LENNY TAINALENNY [facility] [id number] [facility] 2025-01-12 14:00:00 2025-01-12 15:18:53 Technical Support Agent Visit Ultrasound, Janki NievesLenny [facility] GRAY MIXING OPERATOR [facility] & CHILD [facility] 1..114 [id number] [facility] 2025-01-09 14:04:39 2025-01-09 14:04:39 Outpatient SFA SFA [id number] Topher Michel 2025-01-09 00:00:00 2025-01-09 00:00:00 Outpatient Visit SFA [id number] Topher Michel 2025-01-05 00:00:00 2025-01-06 07:20:25 Patient Secure Msg Janki Arce [facility] GRAY MIXING OPERATOR [facility] & CHILD [facility] 1..114 [id number] [facility] 2024-12-16 12:45:00 2024-12-16 12:45:00 Outpatient R JANKI ARCE [facility] [id number] [facility] 2024-12-16 09:30:00 2024-12-16 10:08:35 Routine Visit Janki Arce [facility] GRAY MIXING OPERATOR [facility] & CHILD [facility] 1..114 350.1.13.10 4.2.7.2.686 [id number] [facility] 2024-11-24 00:00:00 2024-11-29 06:09:01 Orders Only Doctor Unassigned, [place] Doctor Unassigned, [place] [facility] (JERI) 1.2.840.114 350.1.13.10 4.2.7.2.686 [id number] [facility] 2024-11-26 00:00:00 2024-11-29 06:07:10 Orders Only Doctor Unassigned, [place] Doctor Unassigned, [place] [facility] ([place]ERI) 1.2840.114 350.1.13.10 4.2.7.2.686 [id number] [facility] 2024-11-28 15:26:28 2024-11-28 15:26:28 Outpatient SFA SFA [id number] Topher Michel 2024-11-28 00:00:00 2024-11-28 00:00:00 Outpatient Visit SFA [id number] Topher Michel 2024-11-26 14:51:33 2024-11-26 14:51:33 Outpatient SFA SFA [id number] Topher Michel 2024-11-26 00:00:00 2024-11-26 00:00:00 Outpatient Visit SFA [id number] Topher Michel 2024-11-26 00:00:00 2024-11-26 00:00:00 Outpatient Visit SFA [id number] Topher Michel 2024-11-18 10:45:00 2024-11-18 11:30:14 Outpatient R JANKI ARCE [facility] [id number] [facility] 2024-11-18 10:45:00 2024-11-18 11:30:14 Routine Visit Janki Arce [facility] GRAY MIXING OPERATOR [facility] 1.2.840.114 350.1.13.10 4.2.7.2.686 [id number] [facility] 2024-10-01 00:00:00 2024-11-01 18:16:56 Patient Secure Msg Janki Arce [facility] GRAY MIXING OPERATOR [facility] CHILD [facility] 1.2.840.114 350.1.13.10 4.2.7.2.686 [id number] [facility] 2024-10-31 00:00:00 2024-10-31 16:26:11 Telephone Janki Arce [facility] GRAY MIXING OPERATOR [facility]ILD [facility] 1.2.840.114 350.1.13.10 4.2.7.2.686 [id number] [facility] 2024-10-28 00:00:00 2024-10-28 16:00:47 Abstract Janki Arce [facility] 1.2.840.114 350.1.13.10 4.2.7.2.686 [id number] [facility] 2024-10-28 14:45:00 2024-10-28 15:58:58 Outpatient P GODFREY ISAAC CHASEY [facility] [id number] [facility] 2024-10-28 14:45:00 2024-10-28 15:58:58 Technical Support Agent Visit Ultrasound, Godfrey Garrido [facility] 1.2.840.114 350.1.13.10 4.2.7.2.686 [id number] [facility] 2024-10-21 08:00:00 2024-10-21 08:12:36 Outpatient R JANKI ARCE [facility] [id number] [facility] 2024-10-21 08:00:00 2024-10-21 08:12:36 Routine Visit Janki Arce [facility] 1.2.840.114 350.1.13.10 4.2.7.2.686 [id number] [facility] 2024-10-03 14:52:13 2024-10-03 14:52:13 Outpatient SFA SFA [id number] Topher Michel 2024-10-03 00:00:00 2024-10-03 00:00:00 Outpatient Visit [facility] [id number] Topher Michel 2024-09-27 23:30:00 2024-09-28 03:32:00 Emergency X NICHOLE HANSON SH[facility] ERT [id number] [facility] 2024-09-27 23:30:00 2024-09-28 03:32:00 Emergency Nichole Hanson [facility] 1..840.114 350.1.13.10 4.2.7.2.686 [id number] [facility] 2024-09-23 09:00:00 2024-09-23 11:02:03 Outpatient R JANKI ARCE [facility] [id number] [facility] 2024-09-23 09:00:00 2024-09-23 11:02:03 Initial Visit Janki Arce [facility] GRAY MIXING OPERATOR [facility] ..840.114 350.1.13.10 4.2.7.2.686 [id number] [facility] 2024-08-05 00:00:00 2024-08-05 08:34:31 Telephone Emery Andrade [facility] 1..840.114 350.1.13.10 4.2.7.2.686 [id number] [facility] 2024-07-31 00:00:00 2024-08-01 09:28:58 Telephone Emery Andrade [facility] 1.2.840.114 350.1.13.10 4.2.7.2.686 [id number] [facility] 2024-07-31 14:29:06 2024-07-31 14:29:06 Outpatient SFA [facility] [id number] Topher Michel 2024-07-17 00:00:00 2024-07-17 10:59:12 Telephone Emery Andrade [facility] 1.2.840.114 350.1.13.10 4.2.7.2.686 [id number] [facility] 2024-07-16 15:36:22 2024-07-16 23:59:00 Hospital Encounter Emery Andrade [facility] 1.2.840.114 350.1.13.10 4.2.7.2.686 [id number] [facility] 2024-07-16 14:45:04 2024-07-16 15:35:00 Outpatient R EMERY ANDRADE [facility] [id number] [facility] 2024-07-16 14:45:04 2024-07-16 15:35:00 Hospital Encounter Emery Andrade [facility] 1.2.840.114 350.1.13.10 4.2.7.2.686 [id number] [facility] 2024-07-02 15:30:00 2024-07-02 16:13:20 Outpatient R EMERY ANDRADE [facility] [id number] [facility] 2024-07-02 15:30:00 2024-07-02 16:13:20 Office Visit Emery Andrade [facility] 1.2.840.114 350.1.13.10 4.2.7.2.686 [id number] [facility] 2024-07-01 19:09:00 2024-07-01 22:27:00 Emergency X MAHESH HAGAN WAKILI [facility] [id number] [facility] 2024-07-01 19:09:00 2024-07-01 22:27:00 Emergency Mahesh Hagan [facility] 1.2.840.114 350.1.13.10 4.2.7.2.686 [id number] [facility] 2024-06-13 15:50:48 2024-06-13 15:50:48 Outpatient SFA SFA [id number] Topher Michel 2024-06-13 00:00:00 2024-06-13 00:00:00 Outpatient Visit SFA [id number] Topher Michel 2024-04-10 17:40:32 2024-04-10 17:40:32 Outpatient SFA SFA [id number] Topher Michel 2024-04-10 00:00:00 2024-04-10 00:00:00 Outpatient Visit SFA [id number] Topher Michel 2024-04-09 14:37:11 2024-04-09 14:37:11 Outpatient SFA SFA [id number] Topher Michel 2024-04-09 00:00:00 2024-04-09 00:00:00 Outpatient Visit SFA [id number] Topher Michel 2024-02-28 17:18:39 2024-02-28 17:18:39 Outpatient SFA SFA [id number] Topher Michel 2024-02-28 00:00:00 2024-02-28 00:00:00 Outpatient Visit SFA [id number] Topher Michel 2024-02-18 17:40:26 2024-02-18 17:40:26 Outpatient SFA SFA [id number] Topher Michel 2024-02-18 00:00:00 2024-02-18 00:00:00 Outpatient Visit SFA [id number] Topher Michel 2024-02-13 13:27:48 2024-02-13 13:27:48 Outpatient SFA SFA [id number] Topher Michel 2024-02-07 15:15:55 2024-02-07 15:15:55 Outpatient SFA SFA [id number] Topher Michel 2024-02-07 00:00:00 2024-02-07 00:00:00 Outpatient Visit SFA [id number] Topher Michel 2024-02-05 08:29:37 2024-02-05 08:29:37 Outpatient SFA SFA [id number] Topher Michel 2024-01-22 08:32:22 2024-01-22 08:32:22 Outpatient SFA SFA [id number] Topher Michel 2024-01-08 09:32:35 2024-01-08 09:32:35 Outpatient SFA SFA [id number] Topher Michel 2024-01-02 09:37:32 2024-01-02 09:37:32 Outpatient SFA SFA [id number] Topher Michel 2023-12-13 17:44:05 2023-12-13 17:44:05 Outpatient SFA SFA [id number] Topher Michel 2023-12-05 17:04:46 2023-12-05 17:04:46 Outpatient SFA SFA [id number] Topher Michel 2023-12-04 08:23:44 2023-12-04 08:23:44 Outpatient SFA SFA [id number] Topher Michel 2023-11-21 16:58:22 2023-11-21 16:58:22 Outpatient SFA SFA [id number] Topher Michel 2023-11-19 16:07:09 2023-11-19 16:07:09 Outpatient SFA SFA [id number] Topher Michel 2023-11-13 09:34:42 2023-11-13 09:34:42 Outpatient SFA SFA [id number] Topher Michel 2023-10-30 15:22:15 2023-10-30 15:22:15 Outpatient SFA SFA [id number] Topher Michel 2023-10-23 15:52:48 2023-10-23 15:52:48 Outpatient SFA SFA [id number] Topher Michel 2023-10-05 16:07:32 2023-10-05 16:07:32 Outpatient SFA SFA [id number] Topher Michel 2023-10-04 10:56:19 2023-10-04 10:56:19 Outpatient SFA SFA [id number] Topher Michel 2023-10-02 14:46:17 2023-10-02 14:46:17 Outpatient SFA SFA [id number] Topher Michel 2023-10-01 15:39:09 2023-10-01 15:39:09 Outpatient SFA SFA [id number] Topher Michel 2023-09-18 16:54:27 2023-09-18 16:54:27 Outpatient SFA SFA [id number] Topher Michel 2023-09-05 16:11:06 2023-09-05 16:11:06 Outpatient SFA SFA [id number] Topher Michel 2023-09-03 15:43:11 2023-09-03 15:43:11 Outpatient SFA SFA [id number] Topher Michel 2023-08-17 15:16:29 2023-08-17 15:16:29 Outpatient SFA SFA [id number] Topher Michel 2023-08-09 15:55:19 2023-08-09 15:55:19 Outpatient SFA SFA [id number] Topher Michel 2023-08-02 15:56:04 2023-08-02 15:56:04 Outpatient SFA SFA [id number] Topher Michel 2023-07-31 13:23:48 2023-07-31 13:23:48 Outpatient SFA SFA [id number] Topher Michel 2023-07-28 14:23:00 2023-07-28 14:23:00 Outpatient SFA SFA [id number] Topher Michel 2023-07-17 15:02:03 2023-07-17 15:02:03 Outpatient SFA SFA [id number] Topher Michel 2023-03-26 14:03:12 2023-03-26 14:03:12 Outpatient SFA SFA [id number] Topher Michel 2023-03-22 11:53:47 2023-03-22 11:53:47 Outpatient SFA SFA [id number] Topher Michel 2023-02-20 16:37:03 2023-02-20 16:37:03 Outpatient SFA SFA [id number] Topher Michel 2023-02-15 15:14:01 2023-02-15 15:14:01 Outpatient SFA SFA [id number] Topher Michel 2023-01-16 08:47:40 2023-01-16 08:47:40 Outpatient SFA SFA [id number] Topher Michel 2022-08-14 11:15:06 2022-08-14 11:15:06 Outpatient SFA SFA [id number] Topher Michel 2022-01-13 18:49:00 2022-01-13 21:18:00 Emergency [place], Irvin [facility] 1.2.840.114 350.1.13.10 4.2.7.2.686 [id number] [facility] 2022-01-13 18:49:00 2022-01-13 21:18:00 Emergency X LUIZ IRVIN [facility] ERT [id number] [facility] Results Test Description Test Time Test Comments Results Result Co mments Source [facility] [id number] 00:00:00* Test Item Value Reference Range Interpretation Comme nts ACINETOBACTER BAUMANNII (holden t code = 77394-2) Negative KLEBSIELLA AEROGENES (test c ode = 44475-9) Negative CITROBACTER FREUNDII (test c ode = 10734-4) Negative ENTEROBACTER CLOACAE (test c ode = 74500SFM) Negative ESCHERICHIA COLI (test code = 00199-4) Negative KLEBSIELLA OXYTOCA (test cod e = 52637-1) Negative KLEBSIELLA PNEUMONIAE (test code = 32658-3) Negative MORGANELLA MORGANII (test co de = 09478-3) Negative MYCOPLASMA HOMINIS (test cod e = 31788-4) Negative PROTEUS MIRABILIS (test code = 88009-8) Negative PROTEUS VULGARIS (test code = 349157-4) Negative PROVIDENCIA STUARTII (test c ode = 35432-1) Negative PSEUDOMONAS AERUGINOSA (test code = 62117-9) Negative SERRATIA MARCESCENS (test co de = 32686-7) Negative UREAPLASMA UREALYTICUM (test code = 86031-7) Negative ENTEROCOCCUS FAECALIS (test code = 03088-6) Negative ENTEROCOCCUS FAECIUM (test c ode = 20866-8) Negative STAPHYLOCOCCUS AUREUS (test code = 74428-6) Negative STAPHYLOCOCCUS SAPROPHYTICUS (test code = 26755-9) Negative STREPTOCOCCUS AGALACTIAE (te st code = 09570-3) Negative ALTAF ALBICANS (test code = 53252-6) Negative ALTAF GLABRATA (test code = no code1) Negative ALTAF PARAPSILOSIS (test c ode = no code3) Negative ALTAF TROPICALIS (test cod e = No code) Negative [facility]PO[facility] URINALYSIS W SPECIFIC [id number] 20:27:00* Test Item Value Reference Range Interpretation Comme nts POCT U SP GRAV (test code = 3255) . 1.005-1.025 POCT PH U (test code = 3254) . 5-8 POCT U LEUK EST (test code = 3263) . Negative - N egative POCT U NIT (test code = 3262) . Negative - Negati ve POCT U PROT (test code = 3259) Trace Negative - Negat sarbjit POCT U GLU (test code = 3256) Nml Negative - Negati ve POCT U KETONE (test code = 3258) . Negative - Neg ative POCT U UROBILI (test code = 3260) . 0.2-1 POCT U BILI (test code = 3261) . Negative - Negat sarbjit POCT U BLD (test code = 3257) . Negative - Negati ve POCT U COLOR (test code = 3266) . POCT U APPEAR (test code = 3267) . [facility] URINALYSIS W SPECIFIC [id number] 15:45:00* Test Item Value Reference Range Interpretation Comme nts POCT U SP GRAV (test code = 3255) * 1.005-1.025 POCT PH U (test code = 3254) * 5-8 POCT U LEUK EST (test code = 3263) * Negative - Negative POCT U NIT (test code = 3262) * Negative - Negati ve POCT U PROT (test code = 3259) trace Negative - Negat sarbjit POCT U GLU (test code = 3256) negative Negative - Negati ve POCT U KETONE (test code = 3258) * Negative - Neg ative POCT U UROBILI (test code = 3260) * 0.2-1 POCT U BILI (test code = 3261) * Negative - Negat sarbjit POCT U BLD (test code = 3257) * Negative - Negati ve POCT U COLOR (test code = 3266) * POCT U APPEAR (test code = 3267) [facility] - NON-INVASIVE TEST RESULTS 2024-11-26 13:16:05Ordered by an unspecified provider.[facility] - NON-INVASIVE TEST [id number] 15:59:55 Ordered by an unspecified provider.[facility] URINALYSIS W SPECIFIC [id number] 16:58:00* Test Item Value Reference Range Interpretation Comme nts POCT U SP GRAV (test code = 3255) . 1.005-1.025 POCT PH U (test code = 3254) . 5-8 POCT U LEUK EST (test code = 3263) . Negative - N egative POCT U NIT (test code = 3262) . Negative - Negati ve POCT U PROT (test code = 3259) trace Negative - Negat sarbjit POCT U GLU (test code = 3256) neg Negative - Negati ve POCT U KETONE (test code = 3258) . Negative - Neg ative POCT U UROBILI (test code = 3260) . 0.2-1 POCT U BILI (test code = 3261) . Negative - Negat sarbjit POCT U BLD (test code = 3257) . Negative - Negati ve POCT U COLOR (test code = 3266) POCT U APPEAR (test code = 3267) [facility]IFIC [id number] 13:50:00* Test Item Value Reference Range Interpretation Comme nts POCT U SP GRAV (test code = 3255) . 1.005-1.025 POCT PH U (test code = 3254) 6 mg/dl 5-8 POCT U LEUK EST (test code = 3263) 2+ Negative - Negative POCT U NIT (test code = 3262) neg Negative - Negati ve POCT U PROT (test code = 3259) 1+ Negative - Negat sarbjit POCT U GLU (test code = 3256) neg Negative - Negati ve POCT U KETONE (test code = 3258) neg Negative - Neg ative POCT U UROBILI (test code = 3260) . 0.2-1 POCT U BILI (test code = 3261) . Negative - Negat sarbjit POCT U BLD (test code = 3257) 250 Negative - Negati ve POCT U COLOR (test code = 3266) POCT U APPEAR (test code = 3267) [facility] first trimester less than 14 weeks with [id number] 08:40:17Ordering Physician: KAMILAH NAYAK HISTORY: ?Pelvic pain in early COMPARISON: None [...] of the ovaries demonstrates normal color-flowand wave forms.[facility] Urinalysis w/o Specific [id number] 15:19:00* Test Item Value Reference Range Interpretation Comme nts POCT PH U (test code = 3254) 6 mg/dl 5-8 POCT U LEUK EST (test code = 3263) trace Negative - Negative POCT U NIT (test code = 3262) neg Negative - Negati ve POCT U PROT (test code = 3259) trace Negative - Negat asrbjit POCT U GLU (test code = 3256) neg Negative - Negati ve POCT U KETONE (test code = 3258) neg Negative - Neg ative POCT U BLD (test code = 3257) neg Negative - Negati ve [facility] [id number] 15:18:00* Test Item Value Reference Range Interpretation Comme nts POCT PREG (test code = 1605) Positive On board controls acceptable with C Line (test code = 3574) Yes POCT PREG LOT # (test code = 3575) POCT PREG TEST DATE ( test code = 3576) [facility] ([facility]E)2024-07-17 01:02:59* Test Item Value Reference Range Interpretation Comme nts Height (test code = 0099221666) 66 in Weight (test code = 1981663623) 129 lbs Systolic BP (test code = 1152037092) 109 mmHg Diastolic BP (test code = 2583396073) 68 mmHg Heart Rate (test code = 0940420866) 68 bpm RVOT diameter (test code = 7868277084) 1.58 cm RVOT Proximal Diameter (test code = 5208240295) 1.87 cm MR max PG (test code = 9405277797) 80.70 mm[Hg] MR max rosa (test code = 8539717073) 449.20 cm/s Ao root diam (test code = 0721254168) 2.02 cm Mr max rosa (test code = 4615960360) 449.2 m/s Aortic root (test code = 4801112501) 2.02 cm Ao root annulus (test code = 1956501155) 2.02 cm BSA (test code = 7784465878) 1.66 m2 LVOT diameter (test code = 2677214895) 1.50 cm LVOT area (test code = 1860232994) 1.77 cm2 LA size (test code = 7003446798) 2.5 cm ACS (test code = 1006340658) 1.92 cm PV PEAK VELOCITY (test code = 3283714886) 76.0 cm/s PV peak gradient (test code = 8069864646) 2.31 mmHg MV E-F slope (test code = 6927212528) 32.00 cm/s MV Peak E Rosa (test code = 0170367115) 108.5 cm/s MV valve area p 1/2 method (test code = 1341514617) 2.70 cm2 MV dec slope (test code = 9129203674) 400.90 cm/s2 MV P1/2t max rosa (test code = 7536515711) 109.50 cm/s MV Peak A Rosa (test code = 4476998853) 62.4 cm/s E/A ratio (test code = 6169044520) 1.74 ratio LVOT stroke volume (test code = 3480739322) 36.80 cm3 LVOT peak rosa (test code = 1087026675) 109.5 cm/s LVOT mn grad (test code = 8051507872) 2.2 mmHg AV LVOT peak gradient (test code = 5148970757) 4.8 mmHg LVOT peak VTI (test code = 9547081369) 20.8 cm LV V1 mean (test code = 1159750047) 66.90 cm/s Aortic valve mean velocity (test code = 1872454738) 99.3 cm/s Ao peak rosa (test code = 5656450675) 164.0 cm/s Ao VTI (test code = 0284810359) 35.1 cm AV area by cont VTI (test code = 8331560229) 1.1 cm2 AV area peak rosa (test code = 6064433037) 1.2 cm2 Ao max PG (test code = 7908565911) 10.80 mm[Hg] AV peak gradient (test code = 3000224823) 10.8 mmHg AV valve area (test code = 4474879501) 1.05 cm2 AV mean gradient (test code = 0390105323) 4.7 mmHg TR Peak Rosa (test code = 9988635067) 267.4 cm/s Triscuspid Valve Regurgitation Peak Gradient (test code = 5832720758) 28.6 mmHg LAV(MOD-sp4) (test code = 1330527958) 14.00 mL LA Volume Index (BP) (test code = 0581645754) 10.0 mL/m2 LA volume (BP) (test code = 6681861975) 16.6 mL LAV(MOD-sp2) (test code = 2416991626) 18.80 mL A4C EF (test code = 7592376549) 61.20 % EF(sp4-el) (test code = 7017104865) 62.10 % SV(MOD-sp4) (test code = 5293445332) 38.90 mL SV(sp4-el) (test code = 7525084880) 38.50 mL LVIDD (test code = 7820400640) 3.90 cm Left Ventricular End Diastolic Volume by Teichholz Method (test code = 9554944) 67.8 mL IVS (test code = 2747184085) 0.93 cm Interventricular Septum Diastolic Thickness by 2D (test code = 5427510) 0.93 cm LVPWD (test code = 3333865331) 0.86 cm PW (test code = 1432811156) 0.86 cm 0.6-1.1 EF(Teich) (test code = 0164400470) 61.80 % LVIDS (test code = 6388459522) 2.70 cm Left Ventricular End Systolic Volume by Teichholz Method (test code = 8361837) 25.9 mL FS (test code = 5519049723) 33 % EF - 2D (test code = 46626639) 61.80 % RVOT area (test code = 2092860151) 1.96 cm2 Radiology Study observation (narrative) (test code = 26750-2) EDGARD (test code = EDGARD) ?Left?Ventricle: Left [...] 2D, color flow Doppler and spectral Doppler. [facility] [id number] 02:16:00* Test Item Value Reference Range Interpretation Comme nts POCT PREG (test code = 1605) Negative On board controls acceptable with C Line (test code = 3574) Yes POCT PREG LOT # (test code = 3575) 369828 POCT PREG TEST DATE ( test code = 3576) 2025-07-24 Lab Interpretation (test cod e = 25305-3) Normal [facility], NAAT, [id number] 21:40:03* Test Item Value Reference Range Interpretation Comme nts CHLAMYDIA, NAAT, URINE (test code = 30873) NEGATIVE NEGATIVE Testing is perfo rmed with [employer] 6800/8800 systems usingreal-time polymerase chain reaction (PCR) method. A negative result does not exclude low level infection, specimensampling error, or collection error. GONORRHEA, NAAT, URINE (test code = 95838) NEGATIVE NEGATIVE Testing is perfo rmed with [employer] 6800/8800 systems usingreal-time polymerase chain reaction (PCR) method. A negative result does not exclude low level infection, specimensampling error, or collection error. UNLESS OTHERWISE INDICATED, ALL TESTING PERFORMED AT [facility] [address] [place] [id number] PROFESSOR OF RELIGION: SUSAN YANEZ M.D. [place] NUMBER [id number] [facility] [place]. [id number] HEPATITIS PANEL, [id number] 03:55:14* Test Item Value Reference Range Interpretation [...] A. INTERPRETATION HEPATITIS B: (test code = 39572) (NOTE) Hepatitis B sero logy shows no evidence of past exposure to orcurrent infection with hepatitis B virus. No evidence of hepatitis Bimmunization is identified. INTERPRETATION HEPATITIS C: (test code = 31770) (NOTE) Hepatitis C sero logy shows no evidence of exposure to hepatitisC virus at this time. It can take up to 12 months after exposure tothe hepatitis C virus for antibodies to become detectable in the blood in certain patients. HIV 1/2 4TH GEN, RFLX [id number] 03:55:14* Test Item Value Reference Range Interpretation Comme nts HIV 1/2 4TH GEN, RFLX CONF ( test code = 3514) NON-REACTIVE NON-REACTIVE RPR REFLEX TO T. PALLIDUM - [id number] 03:53:20* Test Item Value Reference Range Interpretation Comme nts RPR (test code = 25604) NON-REACTIVE NON-REACTIVE RPR TITER (test code = [...] (NOTE) INTERPRETATION HEPATITIS B: (test code = 19601) (NOTE) INTERPRETATION HEPATITIS C: (test code = 87509) (NOTE) Topher Aguillon AustinRPR REFLEX TO T. PALLIDUM - [id number] 00:00:00* Test Item Value Reference Range Interpretation Comme nts RPR (test code = 47207) NON-REACTIVE RPR TITER (test code = 3500) NOT INDIC. TITER Topher Aguillon AustinHIV 1/2 4TH GEN, RFLX [id number] 00:00:00* Test Item Value Reference Range Interpretation Comme nts HIV 1/2 4TH GEN, RFLX CONF ( test code = 3514) NON-REACTIVE Topher Aguillon AustinCT/NG, NAAT, [id number] 00:00:00* Test Item Value Reference Range Interpretation Comme nts CHLAMYDIA, NAAT, URINE (test code = 07998) NEGATIVE GONORRHEA, NAAT, URINE (test code = 44076) NEGATIVE Topher MichelHEPATITIS PROFILE (A,B,C)2024-04-10 00:00:00* Test Item Value Reference [...] (NOTE) INTERPRETATION HEPATITIS B: (test code = 49405) (NOTE) INTERPRETATION HEPATITIS C: (test code = 04899) (NOTE) Topher Aguillon AustinRPR REFLEX TO T. PALLIDUM - [id number] 00:00:00* Test Item Value Reference Range Interpretation Comme nts RPR (test code = 89587) NON-REACTIVE RPR TITER (test code = 3500) NOT INDIC. TITER Topher MichelHIV 1/2 4TH GEN, RFLX [id number] 00:00:00* Test Item Value Reference Range Interpretation Comme nts HIV 1/2 4TH GEN, RFLX CONF ( test code = 3514) NON-REACTIVE oTpher Aguillon AustinCT/NG, NAAT, [id number] 00:00:00* Test Item Value Reference Range Interpretation Comme nts CHLAMYDIA, NAAT, URINE (test code = 85950) NEGATIVE GONORRHEA, NAAT, URINE (test code = 70190) NEGATIVE Topher Aguillon AustinHEPATITIS PROFILE (A,B,C)2024-04-10 00:00:00* [...] (NOTE) INTERPRETATION HEPATITIS B: (test code = 94281) (NOTE) INTERPRETATION HEPATITIS C: (test code = 84357) (NOTE) Topher Aguillon AustinRPR REFLEX TO T. PALLIDUM - [id number] 00:00:00* Test Item Value Reference Range Interpretation Comme nts RPR (test code = 93856) NON-REACTIVE RPR TITER (test code = 3500) NOT INDIC. TITER Topher Aguillon AustinHIV 1/2 4TH GEN, RFLX [id number] 00:00:00* Test Item Value Reference Range Interpretation Comme nts HIV 1/2 4TH GEN, RFLX CONF ( test code = 3514) NON-REACTIVE Topher Aguillon AustinCT/NG, NAAT, [id number] 00:00:00* Test Item Value Reference Range Interpretation Comme nts CHLAMYDIA, NAAT, URINE (test code = 62445) NEGATIVE GONORRHEA, NAAT, URINE (test code = 54954) NEGATIVE Topher Aguillon AustinHEPATITIS PROFILE (A,B,C)2024-04-10 00:00:00* [...] (NOTE) INTERPRETATION HEPATITIS B: (test code = 05362) (NOTE) INTERPRETATION HEPATITIS C: (test code = 58155) (NOTE) Topher Aguillon AustinRPR REFLEX TO T. PALLIDUM - [id number] 00:00:00* Test Item Value Reference Range Interpretation Comme nts RPR (test code = 74683) NON-REACTIVE RPR TITER (test code = 3500) NOT INDIC. TITER Topher Aguillon AustinHIV 1/2 4TH GEN, RFLX [id number] 00:00:00* Test Item Value Reference Range Interpretation Comme nts HIV 1/2 4TH GEN, RFLX CONF ( test code = 3514) NON-REACTIVE Topher Aguillon AustinCT/NG, NAAT, [id number] 00:00:00* Test Item Value Reference Range Interpretation Comme nts CHLAMYDIA, NAAT, URINE (test code = 69505) NEGATIVE GONORRHEA, NAAT, URINE (test code = 30080) NEGATIVE Topher Aguillon AnandHEPATITIS PROFILE (A,B,C)2024-04-10 00:00:00* Test Item Value Reference [...] (NOTE) INTERPRETATION HEPATITIS B: (test code = 54411) (NOTE) INTERPRETATION HEPATITIS C: (test code = 94701) (NOTE) Topher Aguillon AustinRPR REFLEX TO T. PALLIDUM - [id number] 00:00:00* Test Item Value Reference Range Interpretation Comme nts RPR (test code = 09614) NON-REACTIVE RPR TITER (test code = 3500) NOT INDIC. TITER Topher MichelHIV 1/2 4TH GEN, RFLX [id number] 00:00:00* Test Item Value Reference Range Interpretation Comme nts HIV 1/2 4TH GEN, RFLX CONF ( test code = 3514) NON-REACTIVE Topher Aguillon AustinCT/NG, NAAT, [id number] 00:00:00* Test Item Value Reference Range Interpretation Comme nts CHLAMYDIA, NAAT, URINE (test code = 18024) NEGATIVE GONORRHEA, NAAT, URINE (test code = 93626) NEGATIVE Topher Aguillon AustinHEPATITIS PROFILE (A,B,C)2024-04-10 00:00:00* [...] (NOTE) INTERPRETATION HEPATITIS B: (test code = 19977) (NOTE) INTERPRETATION HEPATITIS C: (test code = 46164) (NOTE) Topher Aguillon AustinRPR REFLEX TO T. PALLIDUM - [id number] 00:00:00* Test Item Value Reference Range Interpretation Comme nts RPR (test code = 07251) NON-REACTIVE RPR TITER (test code = 3500) NOT INDIC. TITER Topher MichelHIV 1/2 4TH GEN, RFLX [id number] 00:00:00* Test Item Value Reference Range Interpretation Comme nts HIV 1/2 4TH GEN, RFLX CONF ( test code = 3514) NON-REACTIVE Topher Aguillon AustinCT/NG, NAAT, [id number] 00:00:00* Test Item Value Reference Range Interpretation Comme nts CHLAMYDIA, NAAT, URINE (test code = 12652) NEGATIVE GONORRHEA, NAAT, URINE (test code = 41429) NEGATIVE Topher Aguillon AustinHEPATITIS PROFILE (A,B,C)2024-04-10 00:00:00* [...] (NOTE) INTERPRETATION HEPATITIS B: (test code = 44436) (NOTE) INTERPRETATION HEPATITIS C: (test code = 05088) (NOTE) Topher Aguillon AustinRPR REFLEX TO T. PALLIDUM - [id number] 00:00:00* Test Item Value Reference Range Interpretation Comme nts RPR (test code = 90604) NON-REACTIVE RPR TITER (test code = 3500) NOT INDIC. TITER Topher Aguillon AustinHIV 1/2 4TH GEN, RFLX [id number] 00:00:00* Test Item Value Reference Range Interpretation Comme nts HIV 1/2 4TH GEN, RFLX CONF ( test code = 3514) NON-REACTIVE Topher Aguillon AustinCT/NG, NAAT, [id number] 00:00:00* Test Item Value Reference Range Interpretation Comme nts CHLAMYDIA, NAAT, URINE (test code = 98187) NEGATIVE GONORRHEA, NAAT, URINE (test code = 70501) NEGATIVE Topher Aguillon AnandHEPATITIS PROFILE (A,B,C)2024-04-10 00:00:00* Test Item Value Reference [...] (NOTE) INTERPRETATION HEPATITIS B: (test code = 05154) (NOTE) INTERPRETATION HEPATITIS C: (test code = 60733) (NOTE) Topher Aguillon AustinRPR REFLEX TO T. PALLIDUM - [id number] 00:00:00* Test Item Value Reference Range Interpretation Comme nts RPR (test code = 27865) NON-REACTIVE RPR TITER (test code = 3500) NOT INDIC. TITER Topher MichelHIV 1/2 4TH GEN, RFLX [id number] 00:00:00* Test Item Value Reference Range Interpretation Comme nts HIV 1/2 4TH GEN, RFLX CONF ( test code = 3514) NON-REACTIVE Topher Aguillon AustinCT/NG, NAAT, [id number] 00:00:00* Test Item Value Reference Range Interpretation Comme nts CHLAMYDIA, NAAT, URINE (test code = 40905) NEGATIVE GONORRHEA, NAAT, URINE (test code = 44217) NEGATIVE Topher Aguillon AustinVAGINAL PATHOGENS DNA [id number] 13:02:08* Test Item Value Reference Range Interpretation Comme nts ALTAF SPECIES (test code = 46518) POSITIVE NEGATIVE A G. VAGINALIS (test code = 33002) NEGATIVE NEGATIVE T. VAGINALIS (test code = 34144) NEGATIVE NEGATIVE Note: The [employer] VPIII Microbial Identification Testis a DNA probe test intended for use in the detectionand identification of Altaf species, Gardnerellavaginalis and Trichomonas vaginalis nucleic acid. UNLESS OTHERWISE INDICATED, ALL TESTING PERFORMED AT [facility] [address] [place] [address] PROFESSOR OF RELIGION: SUSAN YANEZ M.D. CLIA NUMBER [id number] [facility] [place]. [id number] VAGINAL PATHOGENS DNA [id number] 00:00:00* Test Item Value Reference Range Interpretation Comme nts ALTAF SPECIES (test code = 17257) POSITIVE G. VAGINALIS (test code = 21703) NEGATIVE T. VAGINALIS (test code = 77273) NEGATIVE Topher Aguillon AustinVAGINAL PATHOGENS DNA [id number] 00:00:00* Test Item Value Reference Range Interpretation Comme nts ALTAF SPECIES (test code = 95920) POSITIVE G. VAGINALIS (test code = 49254) NEGATIVE T. VAGINALIS (test code = 88045) NEGATIVE Topher Aguillon AustinVAGINAL PATHOGENS DNA [id number] 00:00:00* Test Item Value Reference Range Interpretation Comme nts ALTAF SPECIES (test code = 58863) POSITIVE G. VAGINALIS (test code = 36503) NEGATIVE T. VAGINALIS (test code = 26636) NEGATIVE Topher Aguillon AustinVAGINAL PATHOGENS DNA [id number] 00:00:00* Test Item Value Reference Range Interpretation Comme nts ALTAF SPECIES (test code = 61312) POSITIVE G. VAGINALIS (test code = 14633) NEGATIVE T. VAGINALIS (test code = 09955) NEGATIVE Topher Aguillon AustinVAGINAL PATHOGENS DNA [id number] 00:00:00* Test Item Value Reference Range Interpretation Comme nts ALTAF SPECIES (test code = 74617) POSITIVE G. VAGINALIS (test code = 34916) NEGATIVE T. VAGINALIS (test code = 38456) NEGATIVE Topher Aguillon AustinVAGINAL PATHOGENS DNA [id number] 00:00:00* Test Item Value Reference Range Interpretation Comme nts ALTAF SPECIES (test code = 71440) POSITIVE G. VAGINALIS (test code = 45077) NEGATIVE T. VAGINALIS (test code = 90861) NEGATIVE Topher Aguillon AustinVAGINAL PATHOGENS DNA [id number] 00:00:00* Test Item Value Reference Range Interpretation Comme nts ALTAF SPECIES (test code = 79010) POSITIVE G. VAGINALIS (test code = 19018) NEGATIVE T. VAGINALIS (test code = 28961) NEGATIVE Topher Aguillon AustinVAGINAL PATHOGENS DNA [id number] 00:00:00* Test Item Value Reference Range Interpretation Comme nts ALTAF SPECIES (test code = 03850) POSITIVE G. VAGINALIS (test code = 94687) NEGATIVE T. VAGINALIS (test code = 47915) NEGATIVE Topher Aguillon AustinVAGINAL PATHOGENS DNA [id number] 00:00:00* Test Item Value Reference Range Interpretation Comme nts ALTAF SPECIES (test code = 34528) POSITIVE G. VAGINALIS (test code = 01688) NEGATIVE T. VAGINALIS (test code = 16054) NEGATIVE Topher Aguillon AustinVAGINAL PATHOGENS DNA [id number] 00:00:00* Test Item Value Reference Range Interpretation Comme nts ALTAF SPECIES (test code = 96952) POSITIVE G. VAGINALIS (test code = 03952) NEGATIVE T. VAGINALIS (test code = 92052) NEGATIVE Topher Aguillon AustinSURGICAL PATHOLOGY [id number] 13:04:14* Test Item Value Reference Range Interpretation Comments DIAGNOSIS: (test code = 8200) (NOTE) A) Curettage - E ndocervixBenign endocervical tissue. B) Biopsy - Cervix 3:00Benign squamous mucosa; no transformation zone present. C) Biopsy - Cervix 12:00Benign squamous mucosa; no transformation zone present. COMMENTS: (test code = 8205) (NOTE) The previously r eported abnormal Pap (accession #[id number]) isreviewed. The atypical cells identified on the [...] TanNUMBER OF TISSUE PIECES: multipleSUBMITTED IN CASSETTE(S): [id number]: FormalinCOMMENTS:Filtered and entirely submitted. B) SPECIMEN LABELED: Cervix 3:00SIZE/WEIGHT: 0.4x0.4x0.1 cm SPECIMEN COLOR: TanNUMBER OF TISSUE PIECES: 1SUBMITTED IN CASSETTE(S): [id number]: FormalinCOMMENTS:Entirely submitted intact. C) SPECIMEN LABELED: Cervix 12:00SIZE/WEIGHT: 0.5x0.4x0.2 cm SPECIMEN COLOR: TanNUMBER OF TISSUE PIECES: 1SUBMITTED IN CASSETTE(S): [id number]: FormalinCOMMENTS:Entirely submitted intact. PATHOLOGIST: (test code = 8250) (NOTE) Idania Beverly M.D. Specimens processed and interpreted at [facility], [address] [place] [address], , CLIA: [id number] CPT: (test code = 8400) (NOTE) [id number] UNLESS O THERWISE INDICATED, ALL TESTING PERFORMED AT [facility] [address] [place] [address] PROFESSOR OF RELIGION: Patricia YEN NUMBER [id number] [facility]. [id number] SURGICAL PATHOLOGY [id number] 00:00:00* Test Item Value Reference Range Interpretation Comme nts DIAGNOSIS: (test code = 8200) (NOTE) COMMENTS: (test code = 8205) (NOTE) MICROSCOPIC DESCRIPTION: (te st code = 8210) (NOTE) CLINICAL DATA: (test code = 8401) (NOTE) GROSS DESCRIPTION: (test code = 8220) (NOTE) PATHOLOGIST: (test code = 8250) (NOTE) CPT: (test code = 8400) (NOTE) PDFE (test code = PDFReport) PDF [facility]illon [facility] [id number] 00:00:00* Test Item Value Reference Range Interpretation Comme nts DIAGNOSIS: (test code = 8200) (NOTE) COMMENTS: (test code = 8205) (NOTE) MICROSCOPIC DESCRIPTION: (te st code = 8210) (NOTE) CLINICAL DATA: (test code = 8401) (NOTE) GROSS DESCRIPTION: (test code = 8220) (NOTE) PATHOLOGIST: (test code = 8250) (NOTE) CPT: (test code = 8400) (NOTE) PDFE (test code = PDFReport) PDF [facility]her Aguillon [facility] [id number] 00:00:00* Test Item Value Reference Range Interpretation Comme nts DIAGNOSIS: (test code = 8200) (NOTE) COMMENTS: (test code = 8205) (NOTE) MICROSCOPIC DESCRIPTION: (te st code = 8210) (NOTE) CLINICAL DATA: (test code = 8401) (NOTE) GROSS DESCRIPTION: (test code = 8220) (NOTE) PATHOLOGIST: (test code = 8250) (NOTE) CPT: (test code = 8400) (NOTE) PDFE (test code = PDFReport) PDF Topher Aguillon [facility] [id number] 00:00:00* Test Item Value Reference Range Interpretation [...] = PDFReport) PDF Topher Aguillon AustinSURGICAL PATHOLOGY [id number] 00:00:00* Test Item Value Reference Range Interpretation Comme nts DIAGNOSIS: (test code = 8200) (NOTE) COMMENTS: (test code = 8205) (NOTE) MICROSCOPIC DESCRIPTION: (te st code = 8210) (NOTE) CLINICAL DATA: (test code = 8401) (NOTE) GROSS DESCRIPTION: (test code = 8220) (NOTE) PATHOLOGIST: (test code = 8250) (NOTE) CPT: (test code = 8400) (NOTE) PDFE (test code = PDFReport) PDF Topher Aguillon [facility] [id number] 00:00:00* Test Item Value Reference Range Interpretation Comme nts DIAGNOSIS: (test code = 8200) (NOTE) COMMENTS: (test code = 8205) (NOTE) MICROSCOPIC DESCRIPTION: (te st code = 8210) (NOTE) CLINICAL DATA: (test code = 8401) (NOTE) GROSS DESCRIPTION: (test code = 8220) (NOTE) PATHOLOGIST: (test code = 8250) (NOTE) CPT: (test code = 8400) (NOTE) PDFE (test code = PDFReport) PDF Topher Aguillon [facility] [id number] 00:00:00* Test Item Value Reference Range Interpretation Comme nts DIAGNOSIS: (test code = 8200) (NOTE) COMMENTS: (test code = 8205) (NOTE) MICROSCOPIC DESCRIPTION: (te st code = 8210) (NOTE) CLINICAL DATA: (test code = 8401) (NOTE) GROSS DESCRIPTION: (test code = 8220) (NOTE) PATHOLOGIST: (test code = 8250) (NOTE) CPT: (test code = 8400) (NOTE) PDFE (test code = PDFReport) PDF Topher Aguillon [facility] [id number] 00:00:00* Test Item Value Reference Range Interpretation [...] = PDFReport) PDF Topher Aguillon AustinSURGICAL PATHOLOGY [id number] 00:00:00* Test Item Value Reference Range Interpretation Comme nts DIAGNOSIS: (test code = 8200) (NOTE) COMMENTS: (test code = 8205) (NOTE) MICROSCOPIC DESCRIPTION: (te st code = 8210) (NOTE) CLINICAL DATA: (test code = 8401) (NOTE) GROSS DESCRIPTION: (test code = 8220) (NOTE) PATHOLOGIST: (test code = 8250) (NOTE) CPT: (test code = 8400) (NOTE) PDFE (test code = PDFReport) PDF Topher Aguillon [facility] [id number] 00:00:00* Test Item Value Reference Range Interpretation [...] PDF Topher Aguillon AustinHPV HIGH IF ABNORMAL [id number] 16:32:37* Test Item Value Reference Range Interpretation Comme nts HPV HIGH IF ABNORMAL THINPRE P (test code = 97933) SEE BELOW PAP TEST, THINPREP, [id number] 16:32:37* Test Item Value Reference Range Interpretation Comme nts SOURCE: (test code = 8001) Cervical/Endoc ervical SLIDES: (test code = 8011) 1 LMP: (test code = 8021) 11/18/2023 SPECIMEN ADEQUACY: (test code = 93389) (NOTE) Satisfactory for evaluation. Endocervical cells/transformation zone component present. INTERPRETATION: (test code = 46120) ASCUS/EPITH. ABNORMALITY; SEE BELOW A - ------- EPITHELIAL CELL ABNORMALITY Atypical squamous cells of undetermined significance (ASC-US) RESTAURANT MANAGER: (test code = 8101) MAGDA Blancas(ASCP) PATHOLOGIST INTERPRETATION BY: (test code = 8122) Kate Diaz M.D. LOCATION: (test code = 71450) (NOTE) Specimens proces sed and interpreted at [facility] , [address] [place] [address], , CLIA: [id number] CPT: (test code = 8140) (NOTE) 13008, 79081, 88 175 UNLESS OTHERWISE INDICATED, COMPUTER AIDED AND RESTAURANT MANAGER SCREENING PERFORMED. The Pap test is a screening test with an inherent, but low probability of error. Your patient should be reminded to consult you immediately if she experiences any suspicious signs or symptoms, regardless of her Pap test result. An alternate report format containing images or consolidated prior Pap history is available as applicable. HPV HIGH RISK WITH GENOTYPE, [id number] 16:26:27* Test Item Value Reference Range Interpretation Comme nts HPV HIGH RISK INTERP (test code = 92618) POSITIVE NEGATIVE A HPV 16 (test code = 42901) NEGATIVE HPV 18 (test code = 82027) NEGATIVE HPV, HR, OTHER GENOTYPES (test code = 63394) POSITIVE A Testing methodol ogy is real-time PCR utilizing hydrolysis probes with the [employer] system. The test individually detects genotypes 16 and 18, as well as the other 12 high risk types (31,33,35,39,45,51,52,56 ,58,59,66,68). The expected result is negative. A negative result does not rule out the presence of HPV not included in the genotype set, a low level of infection or specimen sampling error. UNLESS OTHERWISE INDICATED, ALL TESTING PERFORMED AT [facility] [address] [place] [id number] PROFESSOR OF RELIGION: SUSAN YANEZ M.D. CLIA NUMBER [id number] [facility] [place]. [id number] HPV HIGH IF ABNORMAL [id number] 00:00:00* Test Item Value Reference Range Interpretation Comme nts HPV HIGH IF ABNORMAL THINPRE P (test code = 04005) SEE BELOW Topher Pal AustinPAP TEST, THINPREP, [id number] 00:00:00* Test Item Value Reference Range Interpretation Comme nts SOURCE: (test code = 8001) Cervical/Endo cervic al SLIDES: (test code = 8011) 1 LMP: (test code = 8021) 11/18/2023 SPECIMEN ADEQUACY: (test code = 43637) (NOTE) INTERPRETATION: (test code = 91317) ASCUS/EPITH. ABNORMALITY; SEE BELOW RESTAURANT MANAGER: (test code = 8101) MAGDA Blancas(ASCP) PATHOLOGIST INTERPRETATION BY: (test code = 8122) Kate Diaz M.D. LOCATION: (test code = 40284) (NOTE) CPT: (test code = 8140) (NOTE) Topher Aguillon AustinHPV HIGH RISK WITH GENOTYPE, TP [REFLEX]2024-01-29 00:00:00* Test Item Value Reference Range Interpretation Comme nts HPV HIGH RISK INTERP (test c ode = 83131) POSITIVE HPV 16 (test code = 01534) NEGATIVE HPV 18 (test code = 06008) NEGATIVE HPV, HR, OTHER GENOTYPES (te st code = 73885) POSITIVE Topher Aguillon AustinHPV HIGH IF ABNORMAL [id number] 00:00:00* Test Item Value Reference Range Interpretation Comme nts HPV HIGH IF ABNORMAL THINPRE P (test code = 57344) SEE BELOW Topher Pal MichelPAP TEST, THINPREP, [id number] 00:00:00* Test Item Value Reference Range Interpretation Comme nts SOURCE: (test code = 8001) Cervical/Endo cervic al SLIDES: (test code = 8011) 1 LMP: (test code = 8021) 11/18/2023 SPECIMEN ADEQUACY: (test code = 38944) (NOTE) INTERPRETATION: (test code = 73192) ASCUS/EPITH. ABNORMALITY; SEE BELOW RESTAURANT MANAGER: (test code = 8101) MAGDA Blancas(ASCP) PATHOLOGIST INTERPRETATION BY: (test code = 8122) Kate Diaz M.D. LOCATION: (test code = 01785) (NOTE) CPT: (test code = 8140) (NOTE) Topher Aguillon AustinHPV HIGH RISK WITH GENOTYPE, TP [REFLEX]2024-01-29 00:00:00* Test Item Value Reference Range Interpretation Comme nts HPV HIGH RISK INTERP (test c ode = 73237) POSITIVE HPV 16 (test code = 82371) NEGATIVE HPV 18 (test code = 89580) NEGATIVE HPV, HR, OTHER GENOTYPES (te st code = 46025) POSITIVE Topher Aguillon AustinHPV HIGH IF ABNORMAL [id number] 00:00:00* Test Item Value Reference Range Interpretation Comme nts HPV HIGH IF ABNORMAL THINPRE P (test code = 45012) SEE BELOW Topher Aguillon AustinPAP TEST, THINPREP, [id number] 00:00:00* Test Item Value Reference Range Interpretation Comme nts SOURCE: (test code = 8001) Cervical/Endo cervic al SLIDES: (test code = 8011) 1 LMP: (test code = 8021) 11/18/2023 SPECIMEN ADEQUACY: (test code = 73246) (NOTE) INTERPRETATION: (test code = 72787) ASCUS/EPITH. ABNORMALITY; SEE BELOW RESTAURANT MANAGER: (test code = 8101) MAGDA Blancas(ASCP) PATHOLOGIST INTERPRETATION BY: (test code = 8122) Kate Diaz M.D. LOCATION: (test code = 31372) (NOTE) CPT: (test code = 8140) (NOTE) Topher Aguillon AustinHPV HIGH RISK WITH GENOTYPE, TP [REFLEX]2024-01-29 00:00:00* Test Item Value Reference Range Interpretation Comme nts HPV HIGH RISK INTERP (test c ode = 99550) POSITIVE HPV 16 (test code = 49020) NEGATIVE HPV 18 (test code = 58449) NEGATIVE HPV, HR, OTHER GENOTYPES (te st code = 03359) POSITIVE Topher Aguillon AustinHPV HIGH IF ABNORMAL [id number] 00:00:00* Test Item Value Reference Range Interpretation Comme nts HPV HIGH IF ABNORMAL THINPRE P (test code = 45352) SEE BELOW Topher Aguillon AustinPAP TEST, THINPREP, [id number] 00:00:00* Test Item Value Reference Range Interpretation Comme nts SOURCE: (test code = 8001) Cervical/Endo cervic al SLIDES: (test code = 8011) 1 LMP: (test code = 8021) 11/18/2023 SPECIMEN ADEQUACY: (test code = 13471) (NOTE) INTERPRETATION: (test code = 42036) ASCUS/EPITH. ABNORMALITY; SEE BELOW RESTAURANT MANAGER: (test code = 8101) MAGDA Blancas(ASCP) PATHOLOGIST INTERPRETATION BY: (test code = 8122) Kate Diaz M.D. LOCATION: (test code = 65810) (NOTE) CPT: (test code = 8140) (NOTE) Topher Aguillon AustinHPV HIGH RISK WITH GENOTYPE, TP [REFLEX]2024-01-29 00:00:00* Test Item Value Reference Range Interpretation Comme nts HPV HIGH RISK INTERP (test c ode = 82887) POSITIVE HPV 16 (test code = 91152) NEGATIVE HPV 18 (test code = 88692) NEGATIVE HPV, HR, OTHER GENOTYPES (te st code = 73983) POSITIVE Topher Aguillon AustinHPV HIGH IF ABNORMAL [id number] 00:00:00* Test Item Value Reference Range Interpretation Comme nts HPV HIGH IF ABNORMAL THINPRE P (test code = 52021) SEE BELOW Topher Aguillon AustinPAP TEST, THINPREP, [id number] 00:00:00* Test Item Value Reference Range Interpretation Comme nts SOURCE: (test code = 8001) Cervical/Endo cervic al SLIDES: (test code = 8011) 1 LMP: (test code = 8021) 11/18/2023 SPECIMEN ADEQUACY: (test code = 50275) (NOTE) INTERPRETATION: (test code = 12149) ASCUS/EPITH. ABNORMALITY; SEE BELOW RESTAURANT MANAGER: (test code = 8101) MAGDA Blancas(ASCP) PATHOLOGIST INTERPRETATION BY: (test code = 8122) Kate Diaz M.D. LOCATION: (test code = 48118) (NOTE) CPT: (test code = 8140) (NOTE) Topher Aguillon AustinHPV HIGH RISK WITH GENOTYPE, TP [REFLEX]2024-01-29 00:00:00* Test Item Value Reference Range Interpretation Comme nts HPV HIGH RISK INTERP (test c ode = 70779) POSITIVE HPV 16 (test code = 37655) NEGATIVE HPV 18 (test code = 36693) NEGATIVE HPV, HR, OTHER GENOTYPES (te st code = 27795) POSITIVE Topher Aguillon AustinHPV HIGH IF ABNORMAL [id number] 00:00:00* Test Item Value Reference Range Interpretation Comme nts HPV HIGH IF ABNORMAL THINPRE P (test code = 88593) SEE BELOW Topher Aguillon AustinPAP TEST, THINPREP, [id number] 00:00:00* Test Item Value Reference Range Interpretation Comme nts SOURCE: (test code = 8001) Cervical/Endo cervic al SLIDES: (test code = 8011) 1 LMP: (test code = 8021) 11/18/2023 SPECIMEN ADEQUACY: (test code = 36266) (NOTE) INTERPRETATION: (test code = 06453) ASCUS/EPITH. ABNORMALITY; SEE BELOW RESTAURANT MANAGER: (test code = 8101) MAGDA Blancas(ASCP) PATHOLOGIST INTERPRETATION BY: (test code = 8122) Kate Diaz M.D. LOCATION: (test code = 73634) (NOTE) CPT: (test code = 8140) (NOTE) Topher Aguillon AustinHPV HIGH RISK WITH GENOTYPE, TP [REFLEX]2024-01-29 00:00:00* Test Item Value Reference Range Interpretation Comme nts HPV HIGH RISK INTERP (test c ode = 56691) POSITIVE HPV 16 (test code = 99113) NEGATIVE HPV 18 (test code = 06958) NEGATIVE HPV, HR, OTHER GENOTYPES (te st code = 55183) POSITIVE Topher Aguillon [facility]HPV HIGH IF ABNORMAL [id number] 00:00:00* Test Item Value Reference Range Interpretation Comme nts HPV HIGH IF ABNORMAL THINPRE P (test code = 69408) SEE BELOW Topher Aguillon AustinPAP TEST, THINPREP, [id number] 00:00:00* Test Item Value Reference Range Interpretation Comme nts SOURCE: (test code = 8001) Cervical/Endo cervic al SLIDES: (test code = 8011) 1 LMP: (test code = 8021) 11/18/2023 SPECIMEN ADEQUACY: (test code = 19729) (NOTE) INTERPRETATION: (test code = 16764) ASCUS/EPITH. ABNORMALITY; SEE BELOW RESTAURANT MANAGER: (test code = 8101) MAGDA Blancas(ASCP) PATHOLOGIST INTERPRETATION BY: (test code = 8122) Kate Diaz M.D. LOCATION: (test code = 64092) (NOTE) CPT: (test code = 8140) (NOTE) Topher Aguillon [facility]HPV HIGH RISK WITH GENOTYPE, TP [REFLEX]2024-01-29 00:00:00* Test Item Value Reference Range Interpretation Comme nts HPV HIGH RISK INTERP (test c ode = 01173) POSITIVE HPV 16 (test code = 25410) NEGATIVE HPV 18 (test code = 96969) NEGATIVE HPV, HR, OTHER GENOTYPES (te st code = 13843) POSITIVE Topher Aguillon AustinHPV HIGH IF ABNORMAL [id number] 00:00:00* Test Item Value Reference Range Interpretation Comme nts HPV HIGH IF ABNORMAL THINPRE P (test code = 94666) SEE BELOW Topher MichelPAP TEST, THINPREP, [id number] 00:00:00* Test Item Value Reference Range Interpretation Comme nts SOURCE: (test code = 8001) Cervical/Endo cervic al SLIDES: (test code = 8011) 1 LMP: (test code = 8021) 11/18/2023 SPECIMEN ADEQUACY: (test code = 66758) (NOTE) INTERPRETATION: (test code = 36304) ASCUS/EPITH. ABNORMALITY; SEE BELOW RESTAURANT MANAGER: (test code = 8101) MAGDA Blancas(ASCP) PATHOLOGIST INTERPRETATION BY: (test code = 8122) Kate Diaz M.D. LOCATION: (test code = 30106) (NOTE) CPT: (test code = 8140) (NOTE) Top[facility] Aguillon AustinHPV HIGH RISK WITH GENOTYPE, TP [REFLEX]2024-01-29 00:00:00* Test Item Value Reference Range Interpretation Comme nts HPV HIGH RISK INTERP (test c ode = 02414) POSITIVE HPV 16 (test code = 99335) NEGATIVE HPV 18 (test code = 13625) NEGATIVE HPV, HR, OTHER GENOTYPES (te st code = 52949) POSITIVE Top[facility] Aguillon AustinHPV HIGH IF ABNORMAL [id number] 00:00:00* Test Item Value Reference Range Interpretation Comme nts HPV HIGH IF ABNORMAL THINPRE P (test code = 81528) SEE BELOW Topher Aguillon AustinPAP TEST, THINPREP, [id number] 00:00:00* Test Item Value Reference Range Interpretation Comme nts SOURCE: (test code = 8001) Cervical/Endo cervic al SLIDES: (test code = 8011) 1 LMP: (test code = 8021) 11/18/2023 SPECIMEN ADEQUACY: (test code = 18786) (NOTE) INTERPRETATION: (test code = 66998) ASCUS/EPITH. ABNORMALITY; SEE BELOW RESTAURANT MANAGER: (test code = 8101) MAGDA Blancas(ASCP) PATHOLOGIST INTERPRETATION BY: (test code = 8122) Kate Diaz M.D. LOCATION: (test code = 99743) (NOTE) CPT: (test code = 8140) (NOTE) Topher Aguillon AustinHPV HIGH RISK WITH GENOTYPE, TP [REFLEX]2024-01-29 00:00:00* Test Item Value Reference Range Interpretation Comme nts HPV HIGH RISK INTERP (test c ode = 85530) POSITIVE HPV 16 (test code = 69232) NEGATIVE HPV 18 (test code = 46188) NEGATIVE HPV, HR, OTHER GENOTYPES (te st code = 68161) POSITIVE Topher Aguillon AustinHPV HIGH IF ABNORMAL [id number] 00:00:00* Test Item Value Reference Range Interpretation Comme nts HPV HIGH IF ABNORMAL THINPRE P (test code = 76169) SEE BELOW Topher Aguillon AustinPAP TEST, THINPREP, [id number] 00:00:00* Test Item Value Reference Range Interpretation Comme nts SOURCE: (test code = 8001) Cervical/Endo cervic al SLIDES: (test code = 8011) 1 LMP: (test code = 8021) 11/18/2023 SPECIMEN ADEQUACY: (test code = 12773) (NOTE) INTERPRETATION: (test code = 48798) ASCUS/EPITH. ABNORMALITY; SEE BELOW RESTAURANT MANAGER: (test code = 8101) MAGDA Blancas(ASCP) PATHOLOGIST INTERPRETATION BY: (test code = 8122) Kate Diaz M.D. LOCATION: (test code = 04461) (NOTE) CPT: (test code = 8140) (NOTE) Top[facility] Aguillon AustinHPV HIGH RISK WITH GENOTYPE, TP [REFLEX]2024-01-29 00:00:00* Test Item Value Reference Range Interpretation Comme nts HPV HIGH RISK INTERP (test c ode = 14047) POSITIVE HPV 16 (test code = 87399) NEGATIVE HPV 18 (test code = 53424) NEGATIVE HPV, HR, OTHER GENOTYPES (te st code = 75508) POSITIVE Topher Aguillon AustinHPV HIGH IF ABNORMAL [id number] 00:00:00* Test Item Value Reference Range Interpretation Comme nts HPV HIGH IF ABNORMAL THINPRE P (test code = 41477) SEE BELOW Topher Aguillon AustinPAP TEST, THINPREP, [id number] 00:00:00* Test Item Value Reference Range Interpretation Comme nts SOURCE: (test code = 8001) Cervical/Endo cervic al SLIDES: (test code = 8011) 1 LMP: (test code = 8021) 11/18/2023 SPECIMEN ADEQUACY: (test code = 11363) (NOTE) INTERPRETATION: (test code = 89086) ASCUS/EPITH. ABNORMALITY; SEE BELOW RESTAURANT MANAGER: (test code = 8101) MAGDA Blancas(ASCP) PATHOLOGIST INTERPRETATION BY: (test code = 8122) Kate Diaz M.D. LOCATION: (test code = 57816) (NOTE) CPT: (test code = 8140) (NOTE) Topher Aguillon AustinHPV HIGH RISK WITH GENOTYPE, TP [REFLEX]2024-01-29 00:00:00* Test Item Value Reference Range Interpretation Comme nts HPV HIGH RISK INTERP (test c ode = 74861) POSITIVE HPV 16 (test code = 25939) NEGATIVE HPV 18 (test code = 63851) NEGATIVE HPV, HR, OTHER GENOTYPES (te st code = 49939) POSITIVE Top[facility] Aguillon AustinHPV HIGH IF ABNORMAL [id number] 00:00:00* Test Item Value Reference Range Interpretation Comme nts HPV HIGH IF ABNORMAL THINPRE P (test code = 02528) SEE BELOW Topher Aguillon AustinPAP TEST, THINPREP, [id number] 00:00:00* Test Item Value Reference Range Interpretation Comme nts SOURCE: (test code = 8001) Cervical/Endo cervic al SLIDES: (test code = 8011) 1 LMP: (test code = 8021) 11/18/2023 SPECIMEN ADEQUACY: (test code = 69217) (NOTE) INTERPRETATION: (test code = 45211) ASCUS/EPITH. ABNORMALITY; SEE BELOW RESTAURANT MANAGER: (test code = 8101) MAGDA Blancas(ASCP) PATHOLOGIST INTERPRETATION BY: (test code = 8122) Kate Diaz M.D. LOCATION: (test code = 27013) (NOTE) CPT: (test code = 8140) (NOTE) Topher Aguillon AustinHPV HIGH RISK WITH GENOTYPE, TP [REFLEX]2024-01-29 00:00:00* Test Item Value Reference Range Interpretation Comme nts HPV HIGH RISK INTERP (test c ode = 51247) POSITIVE HPV 16 (test code = 90783) NEGATIVE HPV 18 (test code = 21918) NEGATIVE HPV, HR, OTHER GENOTYPES (te st code = 50852) POSITIVE Topher Aguillon AustinVAGINAL PATHOGENS DNA [id number] 12:39:50* Test Item Value Reference Range Interpretation Comme nts ALTAF SPECIES (test code = 26021) NEGATIVE NEGATIVE G. VAGINALIS (test code = 41218) POSITIVE NEGATIVE A T. VAGINALIS (test code = 97397) NEGATIVE NEGATIVE Note: The [facility] ir VPIII Microbial Identification Testis a DNA probe test intended for use in the detectionand identification of Altaf species, Gardnerellavaginalis and Trichomonas vaginalis nucleic acid. [id number] 05:20:19* Test Item Value Reference Range Interpretation Comme nts RPR RESULT (test code = 3501) NON-REACTIVE NON-REACTIVE RPR TITER (test code = 3500) NOT INDIC. TITER NOT INDIC. UNLESS OTHERWISE INDICATED, ALL TESTING PERFORMED AT [facility] [address] [place] [id number] PROFESSOR OF RELIGION: SUSAN YANEZ M.D. [place] NUMBER [id number] [facility] [place]. [id number] HIV 1/2 4TH GEN, RFLX [id number] 03:33:35* Test Item Value Reference Range Interpretation Comme nts HIV 1/2 4TH GEN, RFLX CONF ( test code = 3514) NON-REACTIVE NON-REACTIVE HEPATITIS PANEL, [id number] 03:33:35* Test Item Value Reference Range Interpretation Comme nts HEPATITIS A IgM (test code = 33526) NON-REACTIVE NON-REACTIVE HEPATITIS B CORE IgM (test code = 4644) NON-REACTIVE NON-REACTIVE HEPATITIS B SURF AG (test code = 2739) NON-REACTIVE NON-REACTIVE HEPATITIS C ANTIBODY (test code = 4675) NON-REACTIVE NON-REACTIVE INTERPRETATION HEPATITIS A: (test code = 2552) (NOTE) Hepatitis A serology shows no evidence of acute hepatitis A. INTERPRETATION HEPATITIS B: (test code = 80674) (NOTE) Hepatitis B serology shows no evidence of acute hepatitis B andno indication of exposure to hepatitis B virus in the previous raegan eight months. INTERPRETATION HEPATITIS C: (test code = 00510) (NOTE) Hepatitis C serology shows no evidence of exposure to hepatitisC virus at this time. It can take up to 12 months after exposure tothe hepatitis C virus for antibodies to become detectable in the blood in certain patients. VAGINAL PATHOGENS DNA [id number] 00:00:00* Test Item Value Reference Range Interpretation Comme nts ALTAF SPECIES (test code = 19405) NEGATIVE G. VAGINALIS (test code = 67486) POSITIVE T. VAGINALIS (test code = 56250) NEGATIVE Topher MichelHIV 1/2 4TH GEN, RFLX [id number] 00:00:00* Test Item Value Reference Range Interpretation Comme nts HIV 1/2 4TH GEN, RFLX CONF ( test code = 3514) NON-REACTIVE Tophermarcelino MichelACUTE HEPATITIS [id number] 00:00:00* Test Item Value Reference Range Interpretation Comme nts HEPATITIS A IgM (test code = 52410) NON-REACTIVE HEPATITIS B CORE IgM (test c ode = 4644) NON-REACTIVE HEPATITIS B SURF AG (test co de = 2739) NON-REACTIVE HEPATITIS C ANTIBODY (test c ode = 4675) NON-REACTIVE INTERPRETATION HEPATITIS A: (test code = 2552) (NOTE) INTERPRETATION HEPATITIS B: (test code = 49465) (NOTE) INTERPRETATION HEPATITIS C: (test code = 28229) (NOTE) Topher [id number] 00:00:00* Test Item Value Reference Range Interpretation Comme nts RPR RESULT (test code = 3501) NON-REACTIVE RPR TITER (test code = 3500) NOT INDIC. TITER Topher MichelVAGINAL PATHOGENS DNA [id number] 00:00:00* Test Item Value Reference Range Interpretation Comme nts ALTAF SPECIES (test code = ) NEGATIVE G. VAGINALIS (test code = ) POSITIVE T. VAGINALIS (test code = ) NEGATIVE Topher MichelHIV 1/2 4TH GEN, RFLX [id number] 00:00:00* Test Item Value Reference Range Interpretation Comme nts HIV 1/2 4TH GEN, RFLX CONF ( test code = 3514) NON-REACTIVE Topher MichelACUTE HEPATITIS [id number] 00:00:00* Test Item Value Reference Range Interpretation Comme nts HEPATITIS A IgM (test code = 04604) NON-REACTIVE HEPATITIS B CORE IgM (test c ode = 4644) NON-REACTIVE HEPATITIS B SURF AG (test co de = 2739) NON-REACTIVE HEPATITIS C ANTIBODY (test c ode = 4675) NON-REACTIVE INTERPRETATION HEPATITIS A: (test code = 2552) (NOTE) INTERPRETATION HEPATITIS B: (test code = 81465) (NOTE) INTERPRETATION HEPATITIS C: (test code = 01975) (NOTE) Topher [id number] 00:00:00* Test Item Value Reference Range Interpretation Comme nts RPR RESULT (test code = 3501) NON-REACTIVE RPR TITER (test code = 3500) NOT INDIC. TITER Topher MichelVAGINAL PATHOGENS DNA [id number] 00:00:00* Test Item Value Reference Range Interpretation Comme nts ALTAF SPECIES (test code = ) NEGATIVE G. VAGINALIS (test code = 04555) POSITIVE T. VAGINALIS (test code = 84453) NEGATIVE Topher MichelHIV 1/2 4TH GEN, RFLX [id number] 00:00:00* Test Item Value Reference Range Interpretation Comme nts HIV 1/2 4TH GEN, RFLX CONF ( test code = 3514) NON-REACTIVE Topher MichelACUTE HEPATITIS [id number] 00:00:00* Test Item Value Reference Range Interpretation Comme nts HEPATITIS A IgM (test code = 32315) NON-REACTIVE HEPATITIS B CORE IgM (test c ode = 4644) NON-REACTIVE HEPATITIS B SURF AG (test co de = 2739) NON-REACTIVE HEPATITIS C ANTIBODY (test c ode = 4675) NON-REACTIVE INTERPRETATION HEPATITIS A: (test code = 2552) (NOTE) INTERPRETATION HEPATITIS B: (test code = 70860) (NOTE) INTERPRETATION HEPATITIS C: (test code = 37432) (NOTE) Topher [id number] 00:00:00* Test Item Value Reference Range Interpretation Comme nts RPR RESULT (test code = 3501) NON-REACTIVE RPR TITER (test code = 3500) NOT INDIC. TITER Topher MichelVAGINAL PATHOGENS DNA [id number] 00:00:00* Test Item Value Reference Range Interpretation Comme nts ALTAF SPECIES (test code = 01684) NEGATIVE G. VAGINALIS (test code = 59905) POSITIVE T. VAGINALIS (test code = 80702) NEGATIVE Topher MichelHIV 1/2 4TH GEN, RFLX [id number] 00:00:00* Test Item Value Reference Range Interpretation Comme nts HIV 1/2 4TH GEN, RFLX CONF ( test code = 3514) NON-REACTIVE Topher MichelACUTE HEPATITIS [id number] 00:00:00* Test Item Value Reference Range Interpretation Comme nts HEPATITIS A IgM (test code = 42745) NON-REACTIVE HEPATITIS B CORE IgM (test c ode = 4644) NON-REACTIVE HEPATITIS B SURF AG (test co de = 2739) NON-REACTIVE HEPATITIS C ANTIBODY (test c ode = 4675) NON-REACTIVE INTERPRETATION HEPATITIS A: (test code = 2552) (NOTE) INTERPRETATION HEPATITIS B: (test code = 67652) (NOTE) INTERPRETATION HEPATITIS C: (test code = 39434) (NOTE) Topher [id number] 00:00:00* Test Item Value Reference Range Interpretation Comme nts RPR RESULT (test code = 3501) NON-REACTIVE RPR TITER (test code = 3500) NOT INDIC. TITER Topher MichelVAGINAL PATHOGENS DNA [id number] 00:00:00* Test Item Value Reference Range Interpretation Comme nts ALTAF SPECIES (test code = 68543) NEGATIVE G. VAGINALIS (test code = 56102) POSITIVE T. VAGINALIS (test code = 58355) NEGATIVE Topher MichelHIV 1/2 4TH GEN, RFLX [id number] 00:00:00* Test Item Value Reference Range Interpretation Comme nts HIV 1/2 4TH GEN, RFLX CONF ( test code = 3514) NON-REACTIVE Topher MichelACUTE HEPATITIS [id number] 00:00:00* Test Item Value Reference Range Interpretation Comme nts HEPATITIS A IgM (test code = 55739) NON-REACTIVE HEPATITIS B CORE IgM (test c ode = 4644) NON-REACTIVE HEPATITIS B SURF AG (test co de = 2739) NON-REACTIVE HEPATITIS C ANTIBODY (test c ode = 4675) NON-REACTIVE INTERPRETATION HEPATITIS A: (test code = 2552) (NOTE) INTERPRETATION HEPATITIS B: (test code = 33100) (NOTE) INTERPRETATION HEPATITIS C: (test code = 80935) (NOTE) Topher [id number] 00:00:00* Test Item Value Reference Range Interpretation Comme nts RPR RESULT (test code = 3501) NON-REACTIVE RPR TITER (test code = 3500) NOT INDIC. TITER Tophre MichelVAGINAL PATHOGENS DNA [id number] 00:00:00* Test Item Value Reference Range Interpretation Comme nts ALTAF SPECIES (test code = 17403) NEGATIVE G. VAGINALIS (test code = 15573) POSITIVE T. VAGINALIS (test code = 45304) NEGATIVE Topher Aguillon AustinHIV 1/2 4TH GEN, RFLX [id number] 00:00:00* Test Item Value Reference Range Interpretation Comme nts HIV 1/2 4TH GEN, RFLX CONF ( test code = 3514) NON-REACTIVE Topher MichelACUTE HEPATITIS [id number] 00:00:00* Test Item Value Reference Range Interpretation Comme nts HEPATITIS A IgM (test code = 51379) NON-REACTIVE HEPATITIS B CORE IgM (test c ode = 4644) NON-REACTIVE HEPATITIS B SURF AG (test co de = 2739) NON-REACTIVE HEPATITIS C ANTIBODY (test c ode = 4675) NON-REACTIVE INTERPRETATION HEPATITIS A: (test code = 2552) (NOTE) INTERPRETATION HEPATITIS B: (test code = 84873) (NOTE) INTERPRETATION HEPATITIS C: (test code = 44851) (NOTE) Topher [id number] 00:00:00* Test Item Value Reference Range Interpretation Comme nts RPR RESULT (test code = 3501) NON-REACTIVE RPR TITER (test code = 3500) NOT INDIC. TITER Topher MichelVAGINAL PATHOGENS DNA [id number] 00:00:00* Test Item Value Reference Range Interpretation Comme nts ALTAF SPECIES (test code = ) NEGATIVE G. VAGINALIS (test code = 32414) POSITIVE T. VAGINALIS (test code = 19369) NEGATIVE Topher MichelHIV 1/2 4TH GEN, RFLX [id number] 00:00:00* Test Item Value Reference Range Interpretation Comme nts HIV 1/2 4TH GEN, RFLX CONF ( test code = 3514) NON-REACTIVE Topher MichelACUTE HEPATITIS [id number] 00:00:00* Test Item Value Reference Range Interpretation Comme nts HEPATITIS A IgM (test code = 85247) NON-REACTIVE HEPATITIS B CORE IgM (test c ode = 4644) NON-REACTIVE HEPATITIS B SURF AG (test co de = 2739) NON-REACTIVE HEPATITIS C ANTIBODY (test c ode = 4675) NON-REACTIVE INTERPRETATION HEPATITIS A: (test code = 2552) (NOTE) INTERPRETATION HEPATITIS B: (test code = 94681) (NOTE) INTERPRETATION HEPATITIS C: (test code = 00042) (NOTE) Topher [id number] 00:00:00* Test Item Value Reference Range Interpretation Comme nts RPR RESULT (test code = 3501) NON-REACTIVE RPR TITER (test code = 3500) NOT INDIC. TITER Topher MichelVAGINAL PATHOGENS DNA [id number] 00:00:00* Test Item Value Reference Range Interpretation Comme nts ALTAF SPECIES (test code = ) NEGATIVE G. VAGINALIS (test code = 31340) POSITIVE T. VAGINALIS (test code = 34598) NEGATIVE Topher MichelHIV 1/2 4TH GEN, RFLX [id number] 00:00:00* Test Item Value Reference Range Interpretation Comme nts HIV 1/2 4TH GEN, RFLX CONF ( test code = 3514) NON-REACTIVE Topher MichelACUTE HEPATITIS [id number] 00:00:00* Test Item Value Reference Range Interpretation Comme nts HEPATITIS A IgM (test code = 55486) NON-REACTIVE HEPATITIS B CORE IgM (test c ode = 4644) NON-REACTIVE HEPATITIS B SURF AG (test co de = 2739) NON-REACTIVE HEPATITIS C ANTIBODY (test c ode = 4675) NON-REACTIVE INTERPRETATION HEPATITIS A: (test code = 2552) (NOTE) INTERPRETATION HEPATITIS B: (test code = 51432) (NOTE) INTERPRETATION HEPATITIS C: (test code = 68244) (NOTE) Topher [id number] 00:00:00* Test Item Value Reference Range Interpretation Comme nts RPR RESULT (test code = 3501) NON-REACTIVE RPR TITER (test code = 3500) NOT INDIC. TITER Topher MichelVAGINAL PATHOGENS DNA [id number] 00:00:00* Test Item Value Reference Range Interpretation Comme nts ALTAF SPECIES (test code = 52612) NEGATIVE G. VAGINALIS (test code = 66691) POSITIVE T. VAGINALIS (test code = 43222) NEGATIVE Topher MichelHIV 1/2 4TH GEN, RFLX [id number] 00:00:00* Test Item Value Reference Range Interpretation Comme nts HIV 1/2 4TH GEN, RFLX CONF ( test code = 3514) NON-REACTIVE Topher MichelACUTE HEPATITIS [id number] 00:00:00* Test Item Value Reference Range Interpretation Comme nts HEPATITIS A IgM (test code = 49805) NON-REACTIVE HEPATITIS B CORE IgM (test c ode = 4644) NON-REACTIVE HEPATITIS B SURF AG (test co de = 2739) NON-REACTIVE HEPATITIS C ANTIBODY (test c ode = 4675) NON-REACTIVE INTERPRETATION HEPATITIS A: (test code = 2552) (NOTE) INTERPRETATION HEPATITIS B: (test code = 23336) (NOTE) INTERPRETATION HEPATITIS C: (test code = 22354) (NOTE) Topher [id number] 00:00:00* Test Item Value Reference Range Interpretation Comme nts RPR RESULT (test code = 3501) NON-REACTIVE RPR TITER (test code = 3500) NOT INDIC. TITER Topher MichelVAGINAL PATHOGENS DNA [id number] 00:00:00* Test Item Value Reference Range Interpretation Comme nts ALTAF SPECIES (test code = 34227) NEGATIVE G. VAGINALIS (test code = 60161) POSITIVE T. VAGINALIS (test code = 03611) NEGATIVE Topher MichelHIV 1/2 4TH GEN, RFLX [id number] 00:00:00* Test Item Value Reference Range Interpretation Comme nts HIV 1/2 4TH GEN, RFLX CONF ( test code = 3514) NON-REACTIVE Topher MichelACUTE HEPATITIS [id number] 00:00:00* Test Item Value Reference Range Interpretation Comme nts HEPATITIS A IgM (test code = 75452) NON-REACTIVE HEPATITIS B CORE IgM (test c ode = 4644) NON-REACTIVE HEPATITIS B SURF AG (test co de = 2739) NON-REACTIVE HEPATITIS C ANTIBODY (test c ode = 4675) NON-REACTIVE INTERPRETATION HEPATITIS A: (test code = 2552) (NOTE) INTERPRETATION HEPATITIS B: (test code = 56015) (NOTE) INTERPRETATION HEPATITIS C: (test code = 63956) (NOTE) Topher [id number] 00:00:00* Test Item Value Reference Range Interpretation Comme nts RPR RESULT (test code = 3501) NON-REACTIVE RPR TITER (test code = 3500) NOT INDIC. TITER Topher MichelVAGINAL PATHOGENS DNA [id number] 00:00:00* Test Item Value Reference Range Interpretation Comme nts ALTAF SPECIES (test code = 63017) NEGATIVE G. VAGINALIS (test code = 61996) POSITIVE T. VAGINALIS (test code = 79268) NEGATIVE Topher MichelHIV 1/2 4TH GEN, RFLX [id number] 00:00:00* Test Item Value Reference Range Interpretation Comme nts HIV 1/2 4TH GEN, RFLX CONF ( test code = 3514) NON-REACTIVE Topher MichelACUTE HEPATITIS [id number] 00:00:00* Test Item Value Reference Range Interpretation Comme nts HEPATITIS A IgM (test code = 98793) NON-REACTIVE HEPATITIS B CORE IgM (test c ode = 4644) NON-REACTIVE HEPATITIS B SURF AG (test co de = 2739) NON-REACTIVE HEPATITIS C ANTIBODY (test c ode = 4675) NON-REACTIVE INTERPRETATION HEPATITIS A: (test code = 2552) (NOTE) INTERPRETATION HEPATITIS B: (test code = 28941) (NOTE) INTERPRETATION HEPATITIS C: (test code = 34211) (NOTE) Topher [id number] 00:00:00* Test Item Value Reference Range Interpretation Comme nts RPR RESULT (test code = 3501) NON-REACTIVE RPR TITER (test code = 3500) NOT INDIC. TITER Topher MichelVAGINAL PATHOGENS DNA [id number] 00:00:00* Test Item Value Reference Range Interpretation Comme nts ALTAF SPECIES (test code = 06076) NEGATIVE G. VAGINALIS (test code = 16188) POSITIVE T. VAGINALIS (test code = 18569) NEGATIVE Topher MichelHIV 1/2 4TH GEN, RFLX [id number] 00:00:00* Test Item Value Reference Range Interpretation Comme nts HIV 1/2 4TH GEN, RFLX CONF ( test code = 3514) NON-REACTIVE Topher MichelACUTE HEPATITIS [id number] 00:00:00* Test Item Value Reference Range Interpretation Comme nts HEPATITIS A IgM (test code = 50795) NON-REACTIVE HEPATITIS B CORE IgM (test c ode = 4644) NON-REACTIVE HEPATITIS B SURF AG (test co de = 2739) NON-REACTIVE HEPATITIS C ANTIBODY (test c ode = 4675) NON-REACTIVE INTERPRETATION HEPATITIS A: (test code = 2552) (NOTE) INTERPRETATION HEPATITIS B: (test code = 18354) (NOTE) INTERPRETATION HEPATITIS C: (test code = 48809) (NOTE) Topher [id number] 00:00:00* Test Item Value Reference Range Interpretation Comme nts RPR RESULT (test code = 3501) NON-REACTIVE RPR TITER (test code = 3500) NOT INDIC. TITER Topher WellsLTKAYLEE, [id number] 14:23:44SPECIMEN NUMBER: [id number] CULTURE, URINE SPECIMEN NUMBER: [id number] SOURCE: URINE REPORT STATUS: FINAL ISOLATE NUMBER [...] TESTING PERFORMED AT [facility] [address] [place] [address] PROFESSOR OF RELIGION: SUSAN YANEZ M.D. [place] NUMBER [id number] [facility] [place] [id number], [id number] 00:00:00* Test Item Value Reference Range Interpretation Comme nts CULTURE, URINE (test code = 35254) SPECIMEN NUMBER: [id number] Topher Juarez [id number] 00:00:00* Test Item Value Reference Range Interpretation Comme nts CULTURE, URINE (test code = 43853) SPECIMEN NUMBER: [id number] Topher WellsLTKAYLEE, [id number] 00:00:00* Test Item Value Reference Range Interpretation Comme nts CULTURE, URINE (test code = 88615) SPECIMEN NUMBER: [id number] Topher WellsLTKAYLEE [id number] 00:00:00* Test Item Value Reference Range Interpretation Comme nts CULTURE, URINE (test code = 77808) SPECIMEN NUMBER: [id number] Topher Juarez [id number] 00:00:00* Test Item Value Reference Range Interpretation Comme nts CULTURE, URINE (test code = 19165) SPECIMEN NUMBER: [id number] Topher WellsLTKAYLEE, [id number] 00:00:00* Test Item Value Reference Range Interpretation Comme nts CULTURE, URINE (test code = 53419) SPECIMEN NUMBER: [id number] Topher WellsLTKAYLEE, [id number] 00:00:00* Test Item Value Reference Range Interpretation Comme nts CULTURE, URINE (test code = 44160) SPECIMEN NUMBER: [id number] Topher WellsLTKAYLEE [id number] 00:00:00* Test Item Value Reference Range Interpretation Comme nts CULTURE, URINE (test code = 53090) SPECIMEN NUMBER: [id number] Topher MichelCULTURE, [id number] 00:00:00* Test Item Value Reference Range Interpretation Comme nts CULTURE, URINE (test code = 23464) SPECIMEN NUMBER: [id number] Topher MichelCULTURE, [id number] 00:00:00* Test Item Value Reference Range Interpretation Comme nts CULTURE, URINE (test code = 44414) SPECIMEN NUMBER: [id number] Topher MichelCULTURE, [id number] 00:00:00* Test Item Value Reference Range Interpretation Comme nts CULTURE, URINE (test code = 73799) SPECIMEN NUMBER: [id number] Topher MichelCULTURE, [id number] 00:00:00* Test Item Value Reference Range Interpretation Comme nts CULTURE, URINE (test code = 50914) SPECIMEN NUMBER: [id number] Topher MichelTRICHOMONAS, URINE, [id number] 00:00:00* Test Item Value Reference Range Interpretation Comme nts TRICHOMONAS, NAAT, URINE (te st code = 13055) NEGATIVE Topher Aguillon AustinCT/NG, TMA, [id number] 00:00:00* Test Item Value Reference Range Interpretation Comme nts CHLAMYDIA, NAAT, URINE (test code = 02932) NEGATIVE GONORRHEA, NAAT, URINE (test code = 87986) NEGATIVE Topher Aguillon AustinTRICHOMONAS, URINE, [id number] 00:00:00* Test Item Value Reference Range Interpretation Comme nts TRICHOMONAS, NAAT, URINE (te st code = 08021) NEGATIVE Topher Aguillon [place]/NG, TMA, [id number] 00:00:00* Test Item Value Reference Range Interpretation Comme nts CHLAMYDIA, NAAT, URINE (test code = 43360) NEGATIVE GONORRHEA, NAAT, URINE (test code = 34069) NEGATIVE Topher F AustinTRICHOMONAS, URINE, [id number] 00:00:00* Test Item Value Reference Range Interpretation Comme nts TRICHOMONAS, NAAT, URINE (te st code = 03003) NEGATIVE Topher F [place]CT/NG, TMA, [id number] 00:00:00* Test Item Value Reference Range Interpretation Comme nts CHLAMYDIA, NAAT, URINE (test code = 70027) NEGATIVE GONORRHEA, NAAT, URINE (test code = 07013) NEGATIVE Topher F AustinTRICHOMONAS, URINE, [id number] 00:00:00* Test Item Value Reference Range Interpretation Comme nts TRICHOMONAS, NAAT, URINE (te st code = 71390) NEGATIVE Topher F AustinCT/NG, TMA, [id number] 00:00:00* Test Item Value Reference Range Interpretation Comme nts CHLAMYDIA, NAAT, URINE (test code = 37868) NEGATIVE GONORRHEA, NAAT, URINE (test code = 27026) NEGATIVE Topher F AustinTRICHOMONAS, URINE, [id number] 00:00:00* Test Item Value Reference Range Interpretation Comme nts TRICHOMONAS, NAAT, URINE (te st code = 71450) NEGATIVE Topher F [place]CT/NG, TMA, [id number] 00:00:00* Test Item Value Reference Range Interpretation Comme nts CHLAMYDIA, NAAT, URINE (test code = 28192) NEGATIVE GONORRHEA, NAAT, URINE (test code = 13805) NEGATIVE Topher F AustinTRICHOMONAS, URINE, [id number] 00:00:00* Test Item Value Reference Range Interpretation Comme nts TRICHOMONAS, NAAT, URINE (te st code = 09300) NEGATIVE Topher F AustinCT/NG, TMA, [id number] 00:00:00* Test Item Value Reference Range Interpretation Comme nts CHLAMYDIA, NAAT, URINE (test code = 81962) NEGATIVE GONORRHEA, NAAT, URINE (test code = 62504) NEGATIVE Topher F AustinTRICHOMONAS, URINE, [id number] 00:00:00* Test Item Value Reference Range Interpretation Comme nts TRICHOMONAS, NAAT, URINE (te st code = 78464) NEGATIVE Topher F AustinCT/NG, TMA, [id number] 00:00:00* Test Item Value Reference Range Interpretation Comme nts CHLAMYDIA, NAAT, URINE (test code = 34970) NEGATIVE GONORRHEA, NAAT, URINE (test code = 98573) NEGATIVE Topher F AustinTRICHOMONAS, URINE, [id number] 00:00:00* Test Item Value Reference Range Interpretation Comme nts TRICHOMONAS, NAAT, URINE (te st code = 02975) NEGATIVE Topher F AustinCT/NG, TMA, [id number] 00:00:00* Test Item Value Reference Range Interpretation Comme nts CHLAMYDIA, NAAT, URINE (test code = 47560) NEGATIVE GONORRHEA, NAAT, URINE (test code = 64061) NEGATIVE Topher F AustinTRICHOMONAS, URINE, [id number] 00:00:00* Test Item Value Reference Range Interpretation Comme nts TRICHOMONAS, NAAT, URINE (te st code = 04658) NEGATIVE Topher F AustinCT/NG, TMA, [id number] 00:00:00* Test Item Value Reference Range Interpretation Comme nts CHLAMYDIA, NAAT, URINE (test code = 48803) NEGATIVE GONORRHEA, NAAT, URINE (test code = 34762) NEGATIVE Topher F AustinTRICHOMONAS, URINE, [id number] 00:00:00* Test Item Value Reference Range Interpretation Comme nts TRICHOMONAS, NAAT, URINE (te st code = 53089) NEGATIVE Topher F AustinCT/NG, TMA, [id number] 00:00:00* Test Item Value Reference Range Interpretation Comme nts CHLAMYDIA, NAAT, URINE (test code = 89152) NEGATIVE GONORRHEA, NAAT, URINE (test code = 85191) NEGATIVE Topher F AustinTRICHOMONAS, URINE, [id number] 00:00:00* Test Item Value Reference Range Interpretation Comme nts TRICHOMONAS, NAAT, URINE (te st code = 00564) NEGATIVE Topher F AustinCT/NG, TMA, [id number] 00:00:00* Test Item Value Reference Range Interpretation Comme nts CHLAMYDIA, NAAT, URINE (test code = 05553) NEGATIVE GONORRHEA, NAAT, URINE (test code = 69429) NEGATIVE Topher F AustinTRICHOMONAS, URINE, [id number] 00:00:00* Test Item Value Reference Range Interpretation Comme nts TRICHOMONAS, NAAT, URINE (te st code = 11273) NEGATIVE Topher F AustinCT/NG, TMA, [id number] 00:00:00* Test Item Value Reference Range Interpretation Comme nts CHLAMYDIA, NAAT, URINE (test code = 91562) NEGATIVE GONORRHEA, NAAT, URINE (test code = 99005) NEGATIVE Topher F AustinTRICHOMONAS, URINE, [id number] 00:00:00* Test Item Value Reference Range Interpretation Comme nts TRICHOMONAS, NAAT, URINE (test code = 75981) TEST NOT PERFORMED Topher F AustinCT/NG, TMA, [id number] 00:00:00* Test Item Value Reference Range Interpretation Comme nts CHLAMYDIA, NAAT, URINE (test code = 80469) TEST NOT PERFORMED GONORRHEA, NAAT, URINE (test code = 12002) TEST NOT PERFORMED Topher F AustinTRICHOMONAS, URINE, [id number] 00:00:00* Test Item Value Reference Range Interpretation Comme nts TRICHOMONAS, NAAT, URINE (test code = 43870) TEST NOT PERFORMED Topher F AustinCT/NG, TMA, [id number] 00:00:00* Test Item Value Reference Range Interpretation Comme nts CHLAMYDIA, NAAT, URINE (test code = 93920) TEST NOT PERFORMED GONORRHEA, NAAT, URINE (test code = 22785) TEST NOT PERFORMED Topher F AustinTRICHOMONAS, URINE, [id number] 00:00:00* Test Item Value Reference Range Interpretation Comme nts TRICHOMONAS, NAAT, URINE (test code = 20669) TEST NOT PERFORMED Topher F AustinCT/NG, TMA, [id number] 00:00:00* Test Item Value Reference Range Interpretation Comme nts CHLAMYDIA, NAAT, URINE (test code = 09208) TEST NOT PERFORMED GONORRHEA, NAAT, URINE (test code = 62582) TEST NOT PERFORMED Topher F AustinTRICHOMONAS, URINE, [id number] 00:00:00* Test Item Value Reference Range Interpretation Comme nts TRICHOMONAS, NAAT, URINE (test code = 84217) TEST NOT PERFORMED Topher F AustinCT/NG, TMA, [id number] 00:00:00* Test Item Value Reference Range Interpretation Comme nts CHLAMYDIA, NAAT, URINE (test code = 33386) TEST NOT PERFORMED GONORRHEA, NAAT, URINE (test code = 50588) TEST NOT PERFORMED Topher F AustinTRICHOMONAS, URINE, [id number] 00:00:00* Test Item Value Reference Range Interpretation Comme nts TRICHOMONAS, NAAT, URINE (test code = 06592) TEST NOT PERFORMED Topher F AustinCT/NG, TMA, [id number] 00:00:00* Test Item Value Reference Range Interpretation Comme nts CHLAMYDIA, NAAT, URINE (test code = 61344) TEST NOT PERFORMED GONORRHEA, NAAT, URINE (test code = 18840) TEST NOT PERFORMED Topher F AustinTRICHOMONAS, URINE, [id number] 00:00:00* Test Item Value Reference Range Interpretation Comme nts TRICHOMONAS, NAAT, URINE (test code = 02201) TEST NOT PERFORMED Topher F AustinCT/NG, TMA, [id number] 00:00:00* Test Item Value Reference Range Interpretation Comme nts CHLAMYDIA, NAAT, URINE (test code = 60639) TEST NOT PERFORMED GONORRHEA, NAAT, URINE (test code = 43112) TEST NOT PERFORMED Topher F AustinTRICHOMONAS, URINE, [id number] 00:00:00* Test Item Value Reference Range Interpretation Comme nts TRICHOMONAS, NAAT, URINE (test code = 04501) TEST NOT PERFORMED Topher F AustinCT/NG, TMA, [id number] 00:00:00* Test Item Value Reference Range Interpretation Comme nts CHLAMYDIA, NAAT, URINE (test code = 17749) TEST NOT PERFORMED GONORRHEA, NAAT, URINE (test code = 45240) TEST NOT PERFORMED Topher F AustinTRICHOMONAS, URINE, [id number] 00:00:00* Test Item Value Reference Range Interpretation Comme nts TRICHOMONAS, NAAT, URINE (test code = 71392) TEST NOT PERFORMED Topher F AustinCT/NG, TMA, [id number] 00:00:00* Test Item Value Reference Range Interpretation Comme nts CHLAMYDIA, NAAT, URINE (test code = 20023) TEST NOT PERFORMED GONORRHEA, NAAT, URINE (test code = 73851) TEST NOT PERFORMED Topher F AustinTRICHOMONAS, URINE, [id number] 00:00:00* Test Item Value Reference Range Interpretation Comme nts TRICHOMONAS, NAAT, URINE (test code = 05569) TEST NOT PERFORMED Topher F AustinCT/NG, TMA, [id number] 00:00:00* Test Item Value Reference Range Interpretation Comme nts CHLAMYDIA, NAAT, URINE (test code = 43446) TEST NOT PERFORMED GONORRHEA, NAAT, URINE (test code = 18670) TEST NOT PERFORMED Topher F AustinTRICHOMONAS, URINE, [id number] 00:00:00* Test Item Value Reference Range Interpretation Comme nts TRICHOMONAS, NAAT, URINE (test code = 13810) TEST NOT PERFORMED Topher F AustinCT/NG, TMA, [id number] 00:00:00* Test Item Value Reference Range Interpretation Comme nts CHLAMYDIA, NAAT, URINE (test code = 41244) TEST NOT PERFORMED GONORRHEA, NAAT, URINE (test code = 40657) TEST NOT PERFORMED Topher F AustinTRICHOMONAS, URINE, [id number] 00:00:00* Test Item Value Reference Range Interpretation Comme nts TRICHOMONAS, NAAT, URINE (test code = 11505) TEST NOT PERFORMED Topher F AustinCT/NG, TMA, [id number] 00:00:00* Test Item Value Reference Range Interpretation Comme nts CHLAMYDIA, NAAT, URINE (test code = 37638) TEST NOT PERFORMED GONORRHEA, NAAT, URINE (test code = 47713) TEST NOT PERFORMED Topher F AustinTRICHOMONAS, URINE, [id number] 00:00:00* Test Item Value Reference Range Interpretation Comme nts TRICHOMONAS, NAAT, URINE (test code = 81156) TEST NOT PERFORMED Topher F AustinCT/NG, TMA, [id number] 00:00:00* Test Item Value Reference Range Interpretation Comme nts CHLAMYDIA, NAAT, URINE (test code = 04158) TEST NOT PERFORMED GONORRHEA, NAAT, URINE (test code = 32347) TEST NOT PERFORMED Topher F AustinVAGINAL PATHOGENS DNA [id number] 00:00:00* Test Item Value Reference Range Interpretation Comme nts ALTAF SPECIES (test code = 49278) NEGATIVE G. VAGINALIS (test code = ) POSITIVE T. VAGINALIS (test code = ) NEGATIVE Topher F AustinHIV /2 4TH GEN, RFLX [id number] 00:00:00* Test Item Value Reference Range Interpretation Comme nts HIV 1/2 4TH GEN, RFLX CONF ( test code = 3514) NON-REACTIVE Topher [id number] 00:00:00* Test Item Value Reference Range Interpretation Comme nts RPR RESULT (test code = 3501) NON-REACTIVE RPR TITER (test code = 3500) NOT INDIC. TITER Topher ConroyPES SIMPLEX [id number] 00:00:00* Test Item Value Reference Range Interpretation Comme nts HERPES SIMPLEX AB, IgM (test code = 36885) 0.73 INDEX Topher MichelHERPES SIMPLEX 1/2 [id number] 00:00:00* Test Item Value Reference Range Interpretation Comme nts HERPES SIMPLEX 1 AB, IgG (te st code = 71030) 20.300 INDEX HERPES SIMPLEX 2 AB, IgG (te st code = 45319) 0.065 INDEX Topher MichelVAGINAL PATHOGENS DNA [id number] 00:00:00* Test Item Value Reference Range Interpretation Comme nts ALTAF SPECIES (test code = 04605) NEGATIVE G. VAGINALIS (test code = 47100) POSITIVE T. VAGINALIS (test code = 36533) NEGATIVE Topher MichelHIV 1/2 4TH GEN, RFLX [id number] 00:00:00* Test Item Value Reference Range Interpretation Comme nts HIV 1/2 4TH GEN, RFLX CONF ( test code = 3514) NON-REACTIVE Topher [id number] 00:00:00* Test Item Value Reference Range Interpretation Comme nts RPR RESULT (test code = 3501) NON-REACTIVE RPR TITER (test code = 3500) NOT INDIC. TITER Topher MichelHERPES SIMPLEX [id number] 00:00:00* Test Item Value Reference Range Interpretation Comme nts HERPES SIMPLEX AB, IgM (test code = 50686) 0.73 INDEX Topher MichelHERPES SIMPLEX 1/2 [id number] 00:00:00* Test Item Value Reference Range Interpretation Comme nts HERPES SIMPLEX 1 AB, IgG (te st code = 12420) 20.300 INDEX HERPES SIMPLEX 2 AB, IgG (te st code = 42069) 0.065 INDEX Topher MichelVAGINAL PATHOGENS DNA [id number] 00:00:00* Test Item Value Reference Range Interpretation Comme nts ALTAF SPECIES (test code = ) NEGATIVE G. VAGINALIS (test code = ) POSITIVE T. VAGINALIS (test code = ) NEGATIVE Topher MichelHIV 1/2 4TH GEN, RFLX [id number] 00:00:00* Test Item Value Reference Range Interpretation Comme nts HIV 1/2 4TH GEN, RFLX CONF ( test code = 3514) NON-REACTIVE Topher Aguillon [id number] 00:00:00* Test Item Value Reference Range Interpretation Comme nts RPR RESULT (test code = 3501) NON-REACTIVE RPR TITER (test code = 3500) NOT INDIC. TITER Topher MichelHERPES SIMPLEX [id number] 00:00:00* Test Item Value Reference Range Interpretation Comme nts HERPES SIMPLEX AB, IgM (test code = 57175) 0.73 INDEX Topher MichelHERPES SIMPLEX 1/2 [id number] 00:00:00* Test Item Value Reference Range Interpretation Comme nts HERPES SIMPLEX 1 AB, IgG (te st code = 48712) 20.300 INDEX HERPES SIMPLEX 2 AB, IgG (te st code = 51525) 0.065 INDEX Topher MichelVAGINAL PATHOGENS DNA [id number] 00:00:00* Test Item Value Reference Range Interpretation Comme nts ALTAF SPECIES (test code = ) NEGATIVE G. VAGINALIS (test code = 72387) POSITIVE T. VAGINALIS (test code = ) NEGATIVE Topher MichelHIV 1/2 4TH GEN, RFLX [id number] 00:00:00* Test Item Value Reference Range Interpretation Comme nts HIV 1/2 4TH GEN, RFLX CONF ( test code = 3514) NON-REACTIVE Topher Aguillon [id number] 00:00:00* Test Item Value Reference Range Interpretation Comme nts RPR RESULT (test code = 3501) NON-REACTIVE RPR TITER (test code = 3500) NOT INDIC. TITER Topher MichelHERPES SIMPLEX [id number] 00:00:00* Test Item Value Reference Range Interpretation Comme nts HERPES SIMPLEX AB, IgM (test code = 56722) 0.73 INDEX Topher MichelHERPES SIMPLEX 1/2 [id number] 00:00:00* Test Item Value Reference Range Interpretation Comme nts HERPES SIMPLEX 1 AB, IgG (te st code = 20628) 20.300 INDEX HERPES SIMPLEX 2 AB, IgG (te st code = 44816) 0.065 INDEX Topher MichelVAGINAL PATHOGENS DNA [id number] 00:00:00* Test Item Value Reference Range Interpretation Comme nts ALTAF SPECIES (test code = ) NEGATIVE G. VAGINALIS (test code = ) POSITIVE T. VAGINALIS (test code = ) NEGATIVE Topher Aguillon AustinHIV 1/2 4TH GEN, RFLX [id number] 00:00:00* Test Item Value Reference Range Interpretation Comme nts HIV 1/2 4TH GEN, RFLX CONF ( test code = 3514) NON-REACTIVE Topher Aguillon [id number] 00:00:00* Test Item Value Reference Range Interpretation Comme nts RPR RESULT (test code = 3501) NON-REACTIVE RPR TITER (test code = 3500) NOT INDIC. TITER Topher MichelHERPES SIMPLEX [id number] 00:00:00* Test Item Value Reference Range Interpretation Comme nts HERPES SIMPLEX AB, IgM (test code = 55931) 0.73 INDEX Topher MichelHERPES SIMPLEX 1/2 [id number] 00:00:00* Test Item Value Reference Range Interpretation Comme nts HERPES SIMPLEX 1 AB, IgG (te st code = 75646) 20.300 INDEX HERPES SIMPLEX 2 AB, IgG (te st code = 44933) 0.065 INDEX Topher MichelVAGINAL PATHOGENS DNA [id number] 00:00:00* Test Item Value Reference Range Interpretation Comme nts ALTAF SPECIES (test code = ) NEGATIVE G. VAGINALIS (test code = 53580) POSITIVE T. VAGINALIS (test code = 13206) NEGATIVE Topher MichelHIV 1/2 4TH GEN, RFLX [id number] 00:00:00* Test Item Value Reference Range Interpretation Comme nts HIV 1/2 4TH GEN, RFLX CONF ( test code = 3514) NON-REACTIVE Topher [id number] 00:00:00* Test Item Value Reference Range Interpretation Comme nts RPR RESULT (test code = 3501) NON-REACTIVE RPR TITER (test code = 3500) NOT INDIC. TITER Topher Bonilla SIMPLEX [id number] 00:00:00* Test Item Value Reference Range Interpretation Comme nts HERPES SIMPLEX AB, IgM (test code = 99380) 0.73 INDEX Topher MichelHERPES SIMPLEX 1/2 [id number] 00:00:00* Test Item Value Reference Range Interpretation Comme nts HERPES SIMPLEX 1 AB, IgG (te st code = 76176) 20.300 INDEX HERPES SIMPLEX 2 AB, IgG (te st code = 62019) 0.065 NEIDA MichelVAGINAL PATHOGENS DNA [id number] 00:00:00* Test Item Value Reference Range Interpretation Comme nts ALTAF SPECIES (test code = 23636) NEGATIVE G. VAGINALIS (test code = ) POSITIVE T. VAGINALIS (test code = ) NEGATIVE Topher MichelHIV 1/2 4TH GEN, RFLX [id number] 00:00:00* Test Item Value Reference Range Interpretation Comme nts HIV 1/2 4TH GEN, RFLX CONF ( test code = 3514) NON-REACTIVE Topher [id number] 00:00:00* Test Item Value Reference Range Interpretation Comme nts RPR RESULT (test code = 3501) NON-REACTIVE RPR TITER (test code = 3500) NOT INDIC. TITER Topher Bonilla SIMPLEX [id number] 00:00:00* Test Item Value Reference Range Interpretation Comme nts HERPES SIMPLEX AB, IgM (test code = 92703) 0.73 INDEX Topher MichelHERPES SIMPLEX 1/2 [id number] 00:00:00* Test Item Value Reference Range Interpretation Comme nts HERPES SIMPLEX 1 AB, IgG (te st code = 44218) 20.300 INDEX HERPES SIMPLEX 2 AB, IgG (te st code = 14377) 0.065 INDEX Topher MichelVAGINAL PATHOGENS DNA [id number] 00:00:00* Test Item Value Reference Range Interpretation Comme nts ALTAF SPECIES (test code = ) NEGATIVE G. VAGINALIS (test code = 84707) POSITIVE T. VAGINALIS (test code = 94692) NEGATIVE Topher MichelHIV 1/2 4TH GEN, RFLX [id number] 00:00:00* Test Item Value Reference Range Interpretation Comme nts HIV 1/2 4TH GEN, RFLX CONF ( test code = 3514) NON-REACTIVE Topher Aguillon [id number] 00:00:00* Test Item Value Reference Range Interpretation Comme nts RPR RESULT (test code = 3501) NON-REACTIVE RPR TITER (test code = 3500) NOT INDIC. TITER Topher MichelHERPES SIMPLEX [id number] 00:00:00* Test Item Value Reference Range Interpretation Comme nts HERPES SIMPLEX AB, IgM (test code = 07310) 0.73 INDEX Topher MichelHERPES SIMPLEX 1/2 [id number] 00:00:00* Test Item Value Reference Range Interpretation Comme nts HERPES SIMPLEX 1 AB, IgG (te st code = 23751) 20.300 INDEX HERPES SIMPLEX 2 AB, IgG (te st code = 92832) 0.065 INDEX Topher MichelVAGINAL PATHOGENS DNA [id number] 00:00:00* Test Item Value Reference Range Interpretation Comme nts ALTAF SPECIES (test code = ) NEGATIVE G. VAGINALIS (test code = ) POSITIVE T. VAGINALIS (test code = 43113) NEGATIVE Topher MichelHIV 1/2 4TH GEN, RFLX [id number] 00:00:00* Test Item Value Reference Range Interpretation Comme nts HIV 1/2 4TH GEN, RFLX CONF ( test code = 3514) NON-REACTIVE Topher Aguillon [id number] 00:00:00* Test Item Value Reference Range Interpretation Comme nts RPR RESULT (test code = 3501) NON-REACTIVE RPR TITER (test code = 3500) NOT INDIC. TITER Topher MichelHERPES SIMPLEX [id number] 00:00:00* Test Item Value Reference Range Interpretation Comme nts HERPES SIMPLEX AB, IgM (test code = 42703) 0.73 INDEX Topher MichelHERPES SIMPLEX 1/2 [id number] 00:00:00* Test Item Value Reference Range Interpretation Comme nts HERPES SIMPLEX 1 AB, IgG (te st code = 97603) 20.300 INDEX HERPES SIMPLEX 2 AB, IgG (te st code = 59280) 0.065 INDEX Topher MichelVAGINAL PATHOGENS DNA [id number] 00:00:00* Test Item Value Reference Range Interpretation Comme nts ALTAF SPECIES (test code = ) NEGATIVE G. VAGINALIS (test code = ) POSITIVE T. VAGINALIS (test code = ) NEGATIVE Topher MichelHIV 1/2 4TH GEN, RFLX [id number] 00:00:00* Test Item Value Reference Range Interpretation Comme nts HIV 1/2 4TH GEN, RFLX CONF ( test code = 3514) NON-REACTIVE Topher Aguillon [id number] 00:00:00* Test Item Value Reference Range Interpretation Comme nts RPR RESULT (test code = 3501) NON-REACTIVE RPR TITER (test code = 3500) NOT INDIC. TITER Topher MichelHERPES SIMPLEX [id number] 00:00:00* Test Item Value Reference Range Interpretation Comme nts HERPES SIMPLEX AB, IgM (test code = 85939) 0.73 INDEX Topher MichelHERPES SIMPLEX 1/2 [id number] 00:00:00* Test Item Value Reference Range Interpretation Comme nts HERPES SIMPLEX 1 AB, IgG (te st code = 10525) 20.300 INDEX HERPES SIMPLEX 2 AB, IgG (te st code = 73337) 0.065 INDEX Topher MichelVAGINAL PATHOGENS DNA [id number] 00:00:00* Test Item Value Reference Range Interpretation Comme nts ALTAF SPECIES (test code = ) NEGATIVE G. VAGINALIS (test code = ) POSITIVE T. VAGINALIS (test code = 11836) NEGATIVE Topher Aguillon AustinHIV 1/2 4TH GEN, RFLX [id number] 00:00:00* Test Item Value Reference Range Interpretation Comme nts HIV 1/2 4TH GEN, RFLX CONF ( test code = 3514) NON-REACTIVE Topher Aguillon [id number] 00:00:00* Test Item Value Reference Range Interpretation Comme nts RPR RESULT (test code = 3501) NON-REACTIVE RPR TITER (test code = 3500) NOT INDIC. TITER Topher ConroyPES SIMPLEX [id number] 00:00:00* Test Item Value Reference Range Interpretation Comme nts HERPES SIMPLEX AB, IgM (test code = 22862) 0.73 INDEX Topher MichelHERPES SIMPLEX 1/2 [id number] 00:00:00* Test Item Value Reference Range Interpretation Comme nts HERPES SIMPLEX 1 AB, IgG (te st code = 11995) 20.300 INDEX HERPES SIMPLEX 2 AB, IgG (te st code = 50122) 0.065 INDEX Topher MichelVAGINAL PATHOGENS DNA [id number] 00:00:00* Test Item Value Reference Range Interpretation Comme nts ALTAF SPECIES (test code = 52176) NEGATIVE G. VAGINALIS (test code = 09396) POSITIVE T. VAGINALIS (test code = 25840) NEGATIVE Topher MichelHIV 1/2 4TH GEN, RFLX [id number] 00:00:00* Test Item Value Reference Range Interpretation Comme nts HIV 1/2 4TH GEN, RFLX CONF ( test code = 3514) NON-REACTIVE Topher [id number] 00:00:00* Test Item Value Reference Range Interpretation Comme nts RPR RESULT (test code = 3501) NON-REACTIVE RPR TITER (test code = 3500) NOT INDIC. TITER Topher ConroyPES SIMPLEX [id number] 00:00:00* Test Item Value Reference Range Interpretation Comme nts HERPES SIMPLEX AB, IgM (test code = 07607) 0.73 INDEX Topher MichelHERPES SIMPLEX 1/2 [id number] 00:00:00* Test Item Value Reference Range Interpretation Comme nts HERPES SIMPLEX 1 AB, IgG (te st code = 68745) 20.300 INDEX HERPES SIMPLEX 2 AB, IgG (te st code = 43872) 0.065 INDEX Topher MichelHIV 1/2 4TH GEN, RFLX [id number] 01:43:43* Test Item Value Reference Range Interpretation Comme nts HIV 1/2 4TH GEN, RFLX CONF ( test code = 3514) NON-REACTIVE NON-REACTIVE HEPATITIS PANEL, [id number] 01:43:43* Test Item Value Reference Range Interpretation Comme nts HEPATITIS A IgM (test code = 02704) NON-REACTIVE NON-REACTIVE HEPATITIS B CORE IgM (test code = 4644) NON-REACTIVE NON-REACTIVE HEPATITIS B SURF AG (test code = 2739) NON-REACTIVE NON-REACTIVE HEPATITIS C ANTIBODY (test code = 4675) NON-REACTIVE NON-REACTIVE INTERPRETATION HEPATITIS A: (test code = 2552) (NOTE) Hepatitis A serology shows no evidence of acute hepatitis A. INTERPRETATION HEPATITIS B: (test code = 08908) (NOTE) Hepatitis B serology shows no evidence of acute hepatitis B andno indication of exposure to hepatitis B virus in the previous raegan eight months. INTERPRETATION HEPATITIS C: (test code = 85208) (NOTE) Hepatitis C serology shows no evidence of exposure to hepatitisC virus at this time. It can take up to 12 months after exposure tothe hepatitis C virus for antibodies to become detectable in the blood in certain patients. RPR REFLEX TO T. PALLIDUM - [id number] 00:18:34* Test Item Value Reference Range Interpretation Comme nts RPR (test code = 27727) NON-REACTIVE NON-REACTIVE RPR TITER (test code = 3500) NOT INDIC. TITER NOT INDIC. HIV 1/2 4TH GEN, RFLX [id number] 00:00:00* Test Item Value Reference Range Interpretation Comme nts HIV 1/2 4TH GEN, RFLX CONF ( test code = 3514) NON-REACTIVE Topher Aguillon AustinRPR REFLEX TO T. PALLIDUM - [id number] 00:00:00* Test Item Value Reference Range Interpretation Comme nts RPR (test code = 09875) NON-REACTIVE RPR TITER (test code = 3500) NOT INDIC. TITER Topher MichelACUTE HEPATITIS [id number] 00:00:00* Test Item Value Reference Range Interpretation Comme nts HEPATITIS A IgM (test code = 18284) NON-REACTIVE HEPATITIS B CORE IgM (test c ode = 4644) NON-REACTIVE HEPATITIS B SURF AG (test co de = 2739) NON-REACTIVE HEPATITIS C ANTIBODY (test c ode = 4675) NON-REACTIVE INTERPRETATION HEPATITIS A: (test code = 2552) (NOTE) INTERPRETATION HEPATITIS B: (test code = 40579) (NOTE) INTERPRETATION HEPATITIS C: (test code = 13563) (NOTE) Topher F AustinHIV 1/2 4TH GEN, RFLX [id number] 00:00:00* Test Item Value Reference Range Interpretation Comme nts HIV 1/2 4TH GEN, RFLX CONF ( test code = 3514) NON-REACTIVE Topher Aguillon AustinRPR REFLEX TO T. PALLIDUM - [id number] 00:00:00* Test Item Value Reference Range Interpretation Comme nts RPR (test code = 83386) NON-REACTIVE RPR TITER (test code = 3500) NOT INDIC. TITER Topher Aguillon AustinACUTE HEPATITIS [id number] 00:00:00* Test Item Value Reference Range Interpretation Comme nts HEPATITIS A IgM (test code = 28898) NON-REACTIVE HEPATITIS B CORE IgM (test c ode = 4644) NON-REACTIVE HEPATITIS B SURF AG (test co de = 2739) NON-REACTIVE HEPATITIS C ANTIBODY (test c ode = 4675) NON-REACTIVE INTERPRETATION HEPATITIS A: (test code = 2552) (NOTE) INTERPRETATION HEPATITIS B: (test code = 80247) (NOTE) INTERPRETATION HEPATITIS C: (test code = 64778) (NOTE) Topher MichelHIV 1/2 4TH GEN, RFLX [id number] 00:00:00* Test Item Value Reference Range Interpretation Comme nts HIV 1/2 4TH GEN, RFLX CONF ( test code = 3514) NON-REACTIVE Topher Aguillon AustinRPR REFLEX TO T. PALLIDUM - [id number] 00:00:00* Test Item Value Reference Range Interpretation Comme nts RPR (test code = 03537) NON-REACTIVE RPR TITER (test code = 3500) NOT INDIC. TITER Topher MichelACUTE HEPATITIS [id number] 00:00:00* Test Item Value Reference Range Interpretation Comme nts HEPATITIS A IgM (test code = 39791) NON-REACTIVE HEPATITIS B CORE IgM (test c ode = 4644) NON-REACTIVE HEPATITIS B SURF AG (test co de = 2739) NON-REACTIVE HEPATITIS C ANTIBODY (test c ode = 4675) NON-REACTIVE INTERPRETATION HEPATITIS A: (test code = 2552) (NOTE) INTERPRETATION HEPATITIS B: (test code = 96818) (NOTE) INTERPRETATION HEPATITIS C: (test code = 88434) (NOTE) Topher MichelHIV 1/2 4TH GEN, RFLX [id number] 00:00:00* Test Item Value Reference Range Interpretation Comme nts HIV 1/2 4TH GEN, RFLX CONF ( test code = 3514) NON-REACTIVE Topher Aguillon AustinRPR REFLEX TO T. PALLIDUM - [id number] 00:00:00* Test Item Value Reference Range Interpretation Comme nts RPR (test code = 56168) NON-REACTIVE RPR TITER (test code = 3500) NOT INDIC. TITER Topher Aguillon AustinACUTE HEPATITIS [id number] 00:00:00* Test Item Value Reference Range Interpretation Comme nts HEPATITIS A IgM (test code = 55065) NON-REACTIVE HEPATITIS B CORE IgM (test c ode = 4644) NON-REACTIVE HEPATITIS B SURF AG (test co de = 2739) NON-REACTIVE HEPATITIS C ANTIBODY (test c ode = 4675) NON-REACTIVE INTERPRETATION HEPATITIS A: (test code = 2552) (NOTE) INTERPRETATION HEPATITIS B: (test code = 05289) (NOTE) INTERPRETATION HEPATITIS C: (test code = 07961) (NOTE) Topher MichelHIV 1/2 4TH GEN, RFLX [id number] 00:00:00* Test Item Value Reference Range Interpretation Comme nts HIV 1/2 4TH GEN, RFLX CONF ( test code = 3514) NON-REACTIVE Topher MichelRPR REFLEX TO T. PALLIDUM - [id number] 00:00:00* Test Item Value Reference Range Interpretation Comme nts RPR (test code = 90735) NON-REACTIVE RPR TITER (test code = 3500) NOT INDIC. TITER Topher MichelACUTE HEPATITIS [id number] 00:00:00* Test Item Value Reference Range Interpretation Comme nts HEPATITIS A IgM (test code = 61725) NON-REACTIVE HEPATITIS B CORE IgM (test c ode = 4644) NON-REACTIVE HEPATITIS B SURF AG (test co de = 2739) NON-REACTIVE HEPATITIS C ANTIBODY (test c ode = 4675) NON-REACTIVE INTERPRETATION HEPATITIS A: (test code = 2552) (NOTE) INTERPRETATION HEPATITIS B: (test code = 64721) (NOTE) INTERPRETATION HEPATITIS C: (test code = 09264) (NOTE) Topher MichelHIV 1/2 4TH GEN, RFLX [id number] 00:00:00* Test Item Value Reference Range Interpretation Comme nts HIV 1/2 4TH GEN, RFLX CONF ( test code = 3514) NON-REACTIVE Topher Aguillon AustinRPR REFLEX TO T. PALLIDUM - [id number] 00:00:00* Test Item Value Reference Range Interpretation Comme nts RPR (test code = 54395) NON-REACTIVE RPR TITER (test code = 3500) NOT INDIC. TITER Topher Aguillon AustinACUTE HEPATITIS [id number] 00:00:00* Test Item Value Reference Range Interpretation Comme nts HEPATITIS A IgM (test code = 28898) NON-REACTIVE HEPATITIS B CORE IgM (test c ode = 4644) NON-REACTIVE HEPATITIS B SURF AG (test co de = 2739) NON-REACTIVE HEPATITIS C ANTIBODY (test c ode = 4675) NON-REACTIVE INTERPRETATION HEPATITIS A: (test code = 2552) (NOTE) INTERPRETATION HEPATITIS B: (test code = 11705) (NOTE) INTERPRETATION HEPATITIS C: (test code = 81885) (NOTE) Topher MichelHIV 1/2 4TH GEN, RFLX [id number] 00:00:00* Test Item Value Reference Range Interpretation Comme nts HIV 1/2 4TH GEN, RFLX CONF ( test code = 3514) NON-REACTIVE Topher MichelRPR REFLEX TO T. PALLIDUM - [id number] 00:00:00* Test Item Value Reference Range Interpretation Comme nts RPR (test code = 68784) NON-REACTIVE RPR TITER (test code = 3500) NOT INDIC. TITER Topher Aguillon AustinACUTE HEPATITIS [id number] 00:00:00* Test Item Value Reference Range Interpretation Comme nts HEPATITIS A IgM (test code = 89199) NON-REACTIVE HEPATITIS B CORE IgM (test c ode = 4644) NON-REACTIVE HEPATITIS B SURF AG (test co de = 2739) NON-REACTIVE HEPATITIS C ANTIBODY (test c ode = 4675) NON-REACTIVE INTERPRETATION HEPATITIS A: (test code = 2552) (NOTE) INTERPRETATION HEPATITIS B: (test code = 76781) (NOTE) INTERPRETATION HEPATITIS C: (test code = 97171) (NOTE) Topher McihelHIV 1/2 4TH GEN, RFLX [id number] 00:00:00* Test Item Value Reference Range Interpretation Comme nts HIV 1/2 4TH GEN, RFLX CONF ( test code = 3514) NON-REACTIVE Topher Aguillon AustinRPR REFLEX TO T. PALLIDUM - [id number] 00:00:00* Test Item Value Reference Range Interpretation Comme nts RPR (test code = 43051) NON-REACTIVE RPR TITER (test code = 3500) NOT INDIC. TITER Topher Aguillon AustinACUTE HEPATITIS [id number] 00:00:00* Test Item Value Reference Range Interpretation Comme nts HEPATITIS A IgM (test code = 11224) NON-REACTIVE HEPATITIS B CORE IgM (test c ode = 4644) NON-REACTIVE HEPATITIS B SURF AG (test co de = 2739) NON-REACTIVE HEPATITIS C ANTIBODY (test c ode = 4675) NON-REACTIVE INTERPRETATION HEPATITIS A: (test code = 2552) (NOTE) INTERPRETATION HEPATITIS B: (test code = 41235) (NOTE) INTERPRETATION HEPATITIS C: (test code = 68970) (NOTE) Topher MichelHIV 1/2 4TH GEN, RFLX [id number] 00:00:00* Test Item Value Reference Range Interpretation Comme nts HIV 1/2 4TH GEN, RFLX CONF ( test code = 3514) NON-REACTIVE Topher Aguillon AustinRPR REFLEX TO T. PALLIDUM - [id number] 00:00:00* Test Item Value Reference Range Interpretation Comme nts RPR (test code = 70834) NON-REACTIVE RPR TITER (test code = 3500) NOT INDIC. TITER Topher Aguillon AustinACUTE HEPATITIS [id number] 00:00:00* Test Item Value Reference Range Interpretation Comme nts HEPATITIS A IgM (test code = 79520) NON-REACTIVE HEPATITIS B CORE IgM (test c ode = 4644) NON-REACTIVE HEPATITIS B SURF AG (test co de = 2739) NON-REACTIVE HEPATITIS C ANTIBODY (test c ode = 4675) NON-REACTIVE INTERPRETATION HEPATITIS A: (test code = 2552) (NOTE) INTERPRETATION HEPATITIS B: (test code = 93537) (NOTE) INTERPRETATION HEPATITIS C: (test code = 46566) (NOTE) Topher Aguillon AustinHIV 1/2 4TH GEN, RFLX [id number] 00:00:00* Test Item Value Reference Range Interpretation Comme nts HIV 1/2 4TH GEN, RFLX CONF ( test code = 3514) NON-REACTIVE Topher Aguillon AustinRPR REFLEX TO T. PALLIDUM - [id number] 00:00:00* Test Item Value Reference Range Interpretation Comme nts RPR (test code = 97469) NON-REACTIVE RPR TITER (test code = 3500) NOT INDIC. TITER Topher Aguillon AustinACUTE HEPATITIS [id number] 00:00:00* Test Item Value Reference Range Interpretation Comme nts HEPATITIS A IgM (test code = 43212) NON-REACTIVE HEPATITIS B CORE IgM (test c ode = 4644) NON-REACTIVE HEPATITIS B SURF AG (test co de = 2739) NON-REACTIVE HEPATITIS C ANTIBODY (test c ode = 4675) NON-REACTIVE INTERPRETATION HEPATITIS A: (test code = 2552) (NOTE) INTERPRETATION HEPATITIS B: (test code = 68241) (NOTE) INTERPRETATION HEPATITIS C: (test code = 58719) (NOTE) Topher MichelHIV 1/2 4TH GEN, RFLX [id number] 00:00:00* Test Item Value Reference Range Interpretation Comme nts HIV 1/2 4TH GEN, RFLX CONF ( test code = 3514) NON-REACTIVE Topher Aguillon AustinRPR REFLEX TO T. PALLIDUM - [id number] 00:00:00* Test Item Value Reference Range Interpretation Comme nts RPR (test code = 52063) NON-REACTIVE RPR TITER (test code = 3500) NOT INDIC. TITER Topher Aguillon AustinACUTE HEPATITIS [id number] 00:00:00* Test Item Value Reference Range Interpretation Comme nts HEPATITIS A IgM (test code = 88518) NON-REACTIVE HEPATITIS B CORE IgM (test c ode = 4644) NON-REACTIVE HEPATITIS B SURF AG (test co de = 2739) NON-REACTIVE HEPATITIS C ANTIBODY (test c ode = 4675) NON-REACTIVE INTERPRETATION HEPATITIS A: (test code = 2552) (NOTE) INTERPRETATION HEPATITIS B: (test code = 72275) (NOTE) INTERPRETATION HEPATITIS C: (test code = 84910) (NOTE) Topher Aguillon AustinHIV 1/2 4TH GEN, RFLX [id number] 00:00:00* Test Item Value Reference Range Interpretation Comme nts HIV 1/2 4TH GEN, RFLX CONF ( test code = 3514) NON-REACTIVE Topher MichelRPR REFLEX TO T. PALLIDUM - [id number] 00:00:00* Test Item Value Reference Range Interpretation Comme nts RPR (test code = 53060) NON-REACTIVE RPR TITER (test code = 3500) NOT INDIC. TITER Topher MichelACUTE HEPATITIS [id number] 00:00:00* Test Item Value Reference Range Interpretation Comme nts HEPATITIS A IgM (test code = 87687) NON-REACTIVE HEPATITIS B CORE IgM (test c ode = 4644) NON-REACTIVE HEPATITIS B SURF AG (test co de = 2739) NON-REACTIVE HEPATITIS C ANTIBODY (test c ode = 4675) NON-REACTIVE INTERPRETATION HEPATITIS A: (test code = 2552) (NOTE) INTERPRETATION HEPATITIS B: (test code = 72128) (NOTE) INTERPRETATION HEPATITIS C: (test code = 18190) (NOTE) Topher Aguillon AustinCT/NG, NAAT, [id number] 15:10:48* Test Item Value Reference Range Interpretation Comme nts CHLAMYDIA, NAAT, URINE (test code = 14780) NEGATIVE NEGATIVE Testing is perfo rmed with Mia AMARILIS 6800/8800 systems usingreal-time polymerase chain reaction (PCR) method. A negative result does not exclude low level infection, specimensampling error, or collection error. GONORRHEA, NAAT, URINE (test code = 03152) NEGATIVE NEGATIVE Testing is perfo rmed with Mia AMARIL[employer] 6800/8800 systems usingreal-time polymerase chain reaction (PCR) method. A negative result does not exclude low level infection, specimensampling error, or collection error. UNLESS OTHERWISE INDICATED, ALL TESTING PERFORMED AT [facility] [address] [place] [address] PROFESSOR OF RELIGION: SUSAN YANEZ M.D. CLIA NUMBER [id number] [facility]. [id number] CT/NG, TMA, [id number] 00:00:00* Test Item Value Reference Range Interpretation Comme nts CHLAMYDIA, NAAT, URINE (test code = 07004) NEGATIVE GONORRHEA, NAAT, URINE (test code = 94897) NEGATIVE Topher Aguillon AustinCT/NG, TMA, [id number] 00:00:00* Test Item Value Reference Range Interpretation Comme nts CHLAMYDIA, NAAT, URINE (test code = 14573) NEGATIVE GONORRHEA, NAAT, URINE (test code = 26699) NEGATIVE Topher F AustinCT/NG, TMA, [id number] 00:00:00* Test Item Value Reference Range Interpretation Comme nts CHLAMYDIA, NAAT, URINE (test code = 79282) NEGATIVE GONORRHEA, NAAT, URINE (test code = 80144) NEGATIVE Topher F AustinCT/NG, TMA, [id number] 00:00:00* Test Item Value Reference Range Interpretation Comme nts CHLAMYDIA, NAAT, URINE (test code = 18809) NEGATIVE GONORRHEA, NAAT, URINE (test code = 30223) NEGATIVE Topher F AustinCT/NG, TMA, [id number] 00:00:00* Test Item Value Reference Range Interpretation Comme nts CHLAMYDIA, NAAT, URINE (test code = 10299) NEGATIVE GONORRHEA, NAAT, URINE (test code = 03030) NEGATIVE Topher F AustinCT/NG, TMA, [id number] 00:00:00* Test Item Value Reference Range Interpretation Comme nts CHLAMYDIA, NAAT, URINE (test code = 81478) NEGATIVE GONORRHEA, NAAT, URINE (test code = 87783) NEGATIVE Topher F AustinCT/NG, TMA, [id number] 00:00:00* Test Item Value Reference Range Interpretation Comme nts CHLAMYDIA, NAAT, URINE (test code = 94773) NEGATIVE GONORRHEA, NAAT, URINE (test code = 95077) NEGATIVE Topher F AustinCT/NG, TMA, [id number] 00:00:00* Test Item Value Reference Range Interpretation Comme nts CHLAMYDIA, NAAT, URINE (test code = 20858) NEGATIVE GONORRHEA, NAAT, URINE (test code = 10630) NEGATIVE Topher F AustinCT/NG, TMA, [id number] 00:00:00* Test Item Value Reference Range Interpretation Comme nts CHLAMYDIA, NAAT, URINE (test code = 96245) NEGATIVE GONORRHEA, NAAT, URINE (test code = 94638) NEGATIVE Topher F AustinCT/NG, TMA, [id number] 00:00:00* Test Item Value Reference Range Interpretation Comme nts CHLAMYDIA, NAAT, URINE (test code = 95718) NEGATIVE GONORRHEA, NAAT, URINE (test code = 06317) NEGATIVE Topher MichelCT/NG, TMA, [id number] 00:00:00* Test Item Value Reference Range Interpretation Comme nts CHLAMYDIA, NAAT, URINE (test code = 93304) NEGATIVE GONORRHEA, NAAT, URINE (test code = 29398) NEGATIVE Topher Aguillon AustinCT/NG, TMA, [id number] 00:00:00* Test Item Value Reference Range Interpretation Comme nts CHLAMYDIA, NAAT, URINE (test code = 27293) NEGATIVE GONORRHEA, NAAT, URINE (test code = 32246) NEGATIVE Topher MichelHCG, [id number] 09:23:07* Test Item Value Reference Range Interpretation [...] . . . . . . MIU/ML [id number] FEMALES . . . . . . . . . . . . MIU/ML <=7 UNLESS OTHERWISE INDICATED, ALL TESTING PERFORMED AT [facility] [address] [place] [address] PROFESSOR OF RELIGION: SUSAN YANEZ M.D. CLIA NUMBER [id number] [facility] [place]. [id number] HCG, [id number] 00:00:00* Test Item Value Reference Range Interpretation Comme nts HCG, QUANTITATIVE (test code = 2506) 44 MIU/ML Topher F AustinHCG, [id number] 00:00:00* Test Item Value Reference Range Interpretation Comme nts HCG, QUANTITATIVE (test code = 2506) 44 MIU/ML Topher F AustinHCG, [id number] 00:00:00* Test Item Value Reference Range Interpretation Comme nts HCG, QUANTITATIVE (test code = 2506) 44 MIU/ML Topher F AustinHCG, [id number] 00:00:00* Test Item Value Reference Range Interpretation Comme nts HCG, QUANTITATIVE (test code = 2506) 44 MIU/ML Topher F AustinHCG, [id number] 00:00:00* Test Item Value Reference Range Interpretation Comme nts HCG, QUANTITATIVE (test code = 2506) 44 MIU/ML Topher F AustinHCG, [id number] 00:00:00* Test Item Value Reference Range Interpretation Comme nts HCG, QUANTITATIVE (test code = 2506) 44 MIU/ML Topher F AustinHCG, [id number] 00:00:00* Test Item Value Reference Range Interpretation Comme nts HCG, QUANTITATIVE (test code = 2506) 44 MIU/ML Topher F AustinHCG, [id number] 00:00:00* Test Item Value Reference Range Interpretation Comme nts HCG, QUANTITATIVE (test code = 2506) 44 MIU/ML Topher F AustinHCG, [id number] 00:00:00* Test Item Value Reference Range Interpretation Comme nts HCG, QUANTITATIVE (test code = 2506) 44 MIU/ML Topher F AustinHCG, [id number] 00:00:00* Test Item Value Reference Range Interpretation Comme nts HCG, QUANTITATIVE (test code = 2506) 44 MIU/ML Topher F AustinHCG, [id number] 00:00:00* Test Item Value Reference Range Interpretation Comme nts HCG, QUANTITATIVE (test code = 2506) 44 MIU/ML Topher MichelHCG, [id number] 00:00:00* Test Item Value Reference Range Interpretation Comme nts HCG, QUANTITATIVE (test code = 2506) 44 MIU/ML Topher TanS W/ [id number] 22:50:20* Test Item Value Reference Range Interpretation Comments FINAL NIPS RESULT (test code = 22443) Low Risk SEX (test code = 54473) Female FRACTION (EST.) (test code = 65475) 6 % TRISOMY 21 (T21) (test code = 69537) Low probability T21 PRE-TEST PROB (test code = 72549) 1/1,126 T21 POST-TEST PROB (test code = 24529) <1/20,000 TRISOMY 18 (T18) (test code = 695716) Low probability T18 PRE-TEST PROB (test code = 054823) 1/2,500 T18 POST-TEST PROB (test code = 120769) <1/20,000 TRISOMY 13 (T13) (test code = 237008) Low probability T13 PRE-TEST PROB (test code = 739790) 1/6,927 T13 POST-TEST PROB (test code = 832507) <1/20,000 INTERPRETATION (test code = 400452) See Note Testing of circu lating cell-free DNA from maternalblood shows no evidence of numerical abnormalitiesof the tested chromosomes. IMPORTANT INFORMATION (test code = 636639) See Note Patients with a pre-test probability [...] or analytical factors. RECOMMENDATION (test code = 468499) See Note A negative resul t does not eliminate the risk forother chromosomal abnormalities or birthdefects that are not evaluated in this screeningtest. Clinical correlation of test results isrecommended. GESTATION AT JOHANNE (W) (test code = 858908) 14 weeks GESTATION AT JOHANNE (D) (test code = 907688) 3 days DELIVERY DATE (EST.) (test code = 143687) 03/02/2024 PROVIDED HISTORY INFORMATION (test code = 688793) NUMBER OF FETUSES (test code = 206418) Romero MATERNAL WEIGHT (test code = 859496) 144 LBS DATING METHOD (test code = 868836) NORTH LMP OR NORTH DATE (test code = 073788) 05/27/2023 IVF (test code = 726597) NO PATIENT CONSENT (test code = 759572) YES SEX (test code = 440569) See Note sex determ ination is based [...] andinformation regarding genetic counseling services are available [email or web address]. Method:[facility]'s Non-Invasive Screening (NIPS)test is intended for early screening of aneuploidies (bothmonosomy and trisomy) in chromosomes 21, 18, 13, X and Y. The testutilizes [employer]'s VeriSeq NIPT Solution v2 and whole-genomesequencing of circulating fragments of cell-free DNA (cfDNA) obtainedfrom maternal plasma at 10 weeks gestation or later. The fetalcomponent of cfDNA is derived from placental tissue. Paired-endsequencing data of cfDNA are aligned with a reference genome (HG19)and analyzed by the [employer] NIPT Solution v2 algorithm to determinefetal fraction (FF) and numerical abnormalities in chromosomes 21,18, 13, X and Y. FF is used as a senior data quality analyst parameter for NIPSanalysis and interpretation. This test was developed and itsperformance characteristics determined by [facility]). It has not been cleared or approved by the U.S. Food and DrugAdministration (FDA). The FDA has determined that such clearance orapproval is not necessary. This test is used for clinical purposesand should not be regarded as investigational or for research. [facility] isqualified to perform high complexity testing [...] from a study of 2,235pregnancies using the [email or web address] NIPT v2 test. The number of affectedpregnancies [...] is derived from published medical literature.Refer to [email or web address] for additionalinformation on pre- and post-test probability. Depending upon anumber of maternal or -related risk factors, an individualpregnancy may have higher or lower pre-test probability which cansignificantly affect the post-test risk estimation. Personal/familyhistory, sonographic and other -related screening findingsare not utilized in the risk estimation. Genetic or medicalcounseling may be useful to revise risk estimates. Test Limitations:[facility]'s NIPS test is a screening test, [...] sonographicscreening options are available. TESTING PERFORMED AT [facility] [address] [place] [address], [place] [address] CLIA NO: [id number] NIPT W/ [id number] 00:00:00* Test Item Value Reference Range Interpretation Comme nts FINAL NIPS RESULT (test code = 19084) Low Risk SEX (test code = 86941) Female FRACTION (EST.) (test code = 96846) 6 % TRISOMY 21 (T21) (test code = 09216) Low probability T21 PRE-TEST PROB (test code = 43434) 1,126 T21 POST-TEST PROB (test cod e = 47688) <1/20,000 TRISOMY 18 (T18) (test code = 444610) Low probability T18 PRE-TEST PROB (test code = 969052) 1/2,500 T18 POST-TEST PROB (test cod e = 451646) <1/20,000 TRISOMY 13 (T13) (test code = 258980) Low probability T13 PRE-TEST PROB (test code = 438824) T13 POST-TEST PROB (test cod e = 222301) <1/20,000 INTERPRETATION (test code = 456095) See Note IMPORTANT INFORMATION (test code = 388317) See Note RECOMMENDATION (test code = 040840) See Note GESTATION AT JOHANNE (W) (test code = 728814) 14 weeks GESTATION AT JOHANNE (D) (test code = 464734) 3 days DELIVERY DATE (EST.) (test code = 704731) 03/02/2024 PROVIDED HISTORY INFORMATION (test code = 674448) NUMBER OF FETUSES (test code = 680208) Romero MATERNAL WEIGHT (test code = 179167) 144 LBS DATING METHOD (test code = 346712) NORTH LMP OR NORTH DATE (test code = 190638) 05/27/2023 IVF (test code = 339091) NO PATIENT CONSENT (test code = 723228) YES SEX (test code = 286418) See Note Topher Cody W/ [id number] 00:00:00* Test Item Value Reference Range Interpretation Comme nts FINAL NIPS RESULT (test code = 89907) Low Risk SEX (test code = 95523) Female FRACTION (EST.) (test code = 50668) 6 % TRISOMY 21 (T21) (test code = 64679) Low probability T21 PRE-TEST PROB (test code = 21339) 10/15,126 T21 POST-TEST PROB (test cod e = 74244) <1/20,000 TRISOMY 18 (T18) (test code = 348796) Low probability T18 PRE-TEST PROB (test code = 024020) 500 T18 POST-TEST PROB (test cod e = 662581) <1/20,000 TRISOMY 13 (T13) (test code = 209677) Low probability T13 PRE-TEST PROB (test code = 402637) T13 POST-TEST PROB (test cod e = 901224) <1/20,000 INTERPRETATION (test code = 283188) See Note IMPORTANT INFORMATION (test code = 761634) See Note RECOMMENDATION (test code = 522102) See Note GESTATION AT JOHANNE (W) (test code = 787626) 14 weeks GESTATION AT JOHANNE (D) (test code = 819222) 3 days DELIVERY DATE (EST.) (test code = 222409) 03/02/2024 PROVIDED HISTORY INFORMATION (test code = 196512) NUMBER OF FETUSES (test code = 751225) Romero MATERNAL WEIGHT (test code = 118943) 144 LBS DATING METHOD (test code = 533836) NORTH LMP OR NORTH DATE (test code = 922859) 05/27/2023 IVF (test code = 396604) NO PATIENT CONSENT (test code = 232185) YES SEX (test code = 606336) See Note Topher MichelPRESBYTERIAN [facility] HOSPITALMayank W/ [id number] 00:00:00* Test Item Value Reference Range Interpretation Comme nts FINAL NIPS RESULT (test code = 49203) Low Risk SEX (test code = 43332) Female FRACTION (EST.) (test code = 53869) 6 % TRISOMY 21 (T21) (test code = 31876) Low probability T21 PRE-TEST PROB (test code = 04784) 1/1,126 T21 POST-TEST PROB (test cod e = 12848) <1/20,000 TRISOMY 18 (T18) (test code = 285617) Low probability T18 PRE-TEST PROB (test code = 320109) 1/2,500 T18 POST-TEST PROB (test cod e = 841653) <1/20,000 TRISOMY 13 (T13) (test code = 507610) Low probability T13 PRE-TEST PROB (test code = 803961) 1/6,927 T13 POST-TEST PROB (test cod e = 031691) <1/20,000 INTERPRETATION (test code = 944046) See Note IMPORTANT INFORMATION (test code = 088421) See Note RECOMMENDATION (test code = 380404) See Note GESTATION AT JOHANNE (W) (test code = 345710) 14 weeks GESTATION AT JOHANNE (D) (test code = 547952) 3 days DELIVERY DATE (EST.) (test code = 004666) 03/02/2024 PROVIDED HISTORY INFORMATION (test code = 356561) NUMBER OF FETUSES (test code = 388876) Romero MATERNAL WEIGHT (test code = 708062) 144 LBS DATING METHOD (test code = 424154) NORTH LMP OR NORTH DATE (test code = 754033) 05/27/2023 IVF (test code = 336448) NO PATIENT CONSENT (test code = 838432) YES SEX (test code = 426072) See Note Topher TanMayank W/ [id number] 00:00:00* Test Item Value Reference Range Interpretation Comme nts FINAL NIPS RESULT (test code = 40129) Low Risk SEX (test code = 95621) Female FRACTION (EST.) (test code = 98357) 6 % TRISOMY 21 (T21) (test code = 61218) Low probability T21 PRE-TEST PROB (test code = 99536) 1/1,126 T21 POST-TEST PROB (test cod e = 50902) <1/20,000 TRISOMY 18 (T18) (test code = 599752) Low probability T18 PRE-TEST PROB (test code = 758314) 1/2,500 T18 POST-TEST PROB (test cod e = 726416) <1/20,000 TRISOMY 13 (T13) (test code = 187338) Low probability T13 PRE-TEST PROB (test code = 757426) 1/6,927 T13 POST-TEST PROB (test cod e = 855743) <1/20,000 INTERPRETATION (test code = 607555) See Note IMPORTANT INFORMATION (test code = 433772) See Note RECOMMENDATION (test code = 575189) See Note GESTATION AT JOHANNE (W) (test code = 760238) 14 weeks GESTATION AT JOHANNE (D) (test code = 030498) 3 days DELIVERY DATE (EST.) (test code = 533397) 03/02/2024 PROVIDED HISTORY INFORMATION (test code = 124530) NUMBER OF FETUSES (test code = 269909) Romero MATERNAL WEIGHT (test code = 375531) 144 LBS DATING METHOD (test code = 643816) NORTH LMP OR NORTH DATE (test code = 893383) 05/27/2023 IVF (test code = 776712) NO PATIENT CONSENT (test code = 139318) YES SEX (test code = 086036) See Note Topher Cody W/ [id number] 00:00:00* Test Item Value Reference Range Interpretation Comme nts FINAL NIPS RESULT (test code = 93141) Low Risk SEX (test code = 11734) Female FRACTION (EST.) (test code = 75708) 6 % TRISOMY 21 (T21) (test code = 75164) Low probability T21 PRE-TEST PROB (test code = 27824) 1/,126 T21 POST-TEST PROB (test cod e = 33806) <1/20,000 TRISOMY 18 (T18) (test code = 815373) Low probability T18 PRE-TEST PROB (test code = 721132) 1/2,500 T18 POST-TEST PROB (test cod e = 334417) <1/20,000 TRISOMY 13 (T13) (test code = 995754) Low probability T13 PRE-TEST PROB (test code = 066744) 1/6,927 T13 POST-TEST PROB (test cod e = 940182) <1/20,000 INTERPRETATION (test code = 002358) See Note IMPORTANT INFORMATION (test code = 072418) See Note RECOMMENDATION (test code = 251051) See Note GESTATION AT [facility] (W) (test code = 839494) 14 weeks GESTATION AT [facility] (D) (test code = 873789) 3 days DELIVERY DATE (EST.) (test code = 458460) 03/02/2024 PROVIDED HISTORY INFORMATION (test code = 417653) NUMBER OF FETUSES (test code = 937358) Romero MATERNAL WEIGHT (test code = 264435) 144 LBS DATING METHOD (test code = 811944) NORTH LMP OR NORTH DATE (test code = 028376) 05/27/2023 IVF (test code = 407076) NO PATIENT CONSENT (test code = 921326) YES SEX (test code = 168593) See Note Topher Cody W/ [id number] 00:00:00* Test Item Value Reference Range Interpretation Comme nts FINAL NIPS RESULT (test code = 01372) Low Risk SEX (test code = 35102) Female FRACTION (EST.) (test code = 14395) 6 % TRISOMY 21 (T21) (test code = 86640) Low probability T21 PRE-TEST PROB (test code = 81394) T21 POST-TEST PROB (test cod e = 23352) <1/20,000 TRISOMY 18 (T18) (test code = 921938) Low probability T18 PRE-TEST PROB (test code = 019938) 1/2,500 T18 POST-TEST PROB (test cod e = 720579) <1/20,000 TRISOMY 13 (T13) (test code = 579864) Low probability T13 PRE-TEST PROB (test code = 371709) 6,927 T13 POST-TEST PROB (test cod e = 023169) <1/20,000 INTERPRETATION (test code = 052204) See Note IMPORTANT INFORMATION (test code = 933471) See Note RECOMMENDATION (test code = 218493) See Note GESTATION AT [facility] (W) (test code = 793164) 14 weeks GESTATION AT [facility] (D) (test code = 259284) 3 days DELIVERY DATE (EST.) (test code = 919611) 03/02/2024 PROVIDED HISTORY INFORMATION (test code = 048517) NUMBER OF FETUSES (test code = 863939) Roemro MATERNAL WEIGHT (test code = 834821) 144 LBS DATING METHOD (test code = 060153) NORTH LMP OR NORTH DATE (test code = 676903) 05/27/2023 IVF (test code = 763014) NO PATIENT CONSENT (test code = 124260) YES SEX (test code = 456949) See Note Topher Cody W/ [id number] 00:00:00* Test Item Value Reference Range Interpretation Comme nts FINAL NIPS RESULT (test code = 37455) Low Risk SEX (test code = 85647) Female FRACTION (EST.) (test code = 21937) 6 % TRISOMY 21 (T21) (test code = 04048) Low probability T21 PRE-TEST PROB (test code = 78016) T21 POST-TEST PROB (test cod e = 98372) <1/20,000 TRISOMY 18 (T18) (test code = 816676) Low probability T18 PRE-TEST PROB (test code = 690638) 12,500 T18 POST-TEST PROB (test cod e = 437998) <1/20,000 TRISOMY 13 (T13) (test code = 899520) Low probability T13 PRE-TEST PROB (test code = 581670) 10/20,927 T13 POST-TEST PROB (test cod e = 750646) <1/20,000 INTERPRETATION (test code = 595075) See Note IMPORTANT INFORMATION (test code = 108083) See Note RECOMMENDATION (test code = 142488) See Note GESTATION AT J[facility]NE (W) (test code = 537210) 14 weeks GESTATION AT [facility] (D) (test code = 304011) 3 days DELIVERY DATE (EST.) (test code = 018147) 03/02/2024 PROVIDED HISTORY INFORMATION (test code = 959847) NUMBER OF FETUSES (test code = 190433) Romero MATERNAL WEIGHT (test code = 784793) 144 LBS DATING METHOD (test code = 184549) NORTH LMP OR NORTH DATE (test code = 993417) 05/27/2023 IVF (test code = 293758) NO PATIENT CONSENT (test code = 858699) YES SEX (test code = 356642) See Note Topher Cody W/ [id number] 00:00:00* Test Item Value Reference Range Interpretation Comme nts FINAL NIPS RESULT (test code = 71879) Low Risk SEX (test code = 81064) Female FRACTION (EST.) (test code = 96509) 6 % TRISOMY 21 (T21) (test code = 81441) Low probability T21 PRE-TEST PROB (test code = 11433) 10/15,126 T21 POST-TEST PROB (test cod e = 48427) <1/20,000 TRISOMY 18 (T18) (test code = 696103) Low probability T18 PRE-TEST PROB (test code = 240037) 12,500 T18 POST-TEST PROB (test cod e = 961984) <1/20,000 TRISOMY 13 (T13) (test code = 045089) Low probability T13 PRE-TEST PROB (test code = 492434) T13 POST-TEST PROB (test cod e = 501003) <1/20,000 INTERPRETATION (test code = 859062) See Note IMPORTANT INFORMATION (test code = 299780) See Note RECOMMENDATION (test code = 629122) See Note GESTATION AT [facility] (W) (test code = 163267) 14 weeks GESTATION AT [facility] (D) (test code = 354949) 3 days DELIVERY DATE (EST.) (test code = 914484) 03/02/2024 PROVIDED HISTORY INFORMATION (test code = 583655) NUMBER OF FETUSES (test code = 251167) Romero MATERNAL WEIGHT (test code = 877134) 144 LBS DATING METHOD (test code = 684400) NORTH LMP OR NORTH DATE (test code = 453830) 05/27/2023 IVF (test code = 884236) NO PATIENT CONSENT (test code = 195390) YES SEX (test code = 424611) See Note Topher Cody W/ [id number] 00:00:00* Test Item Value Reference Range Interpretation Comme nts FINAL NIPS RESULT (test code = 01477) Low Risk SEX (test code = 12408) Female FRACTION (EST.) (test code = 74191) 6 % TRISOMY 21 (T21) (test code = 52538) Low probability T21 PRE-TEST PROB (test code = 39172) 1/1,126 T21 POST-TEST PROB (test cod e = 31878) <1/20,000 TRISOMY 18 (T18) (test code = 904882) Low probability T18 PRE-TEST PROB (test code = 019952) 1/2,500 T18 POST-TEST PROB (test cod e = 115540) <1/20,000 TRISOMY 13 (T13) (test code = 629749) Low probability T13 PRE-TEST PROB (test code = 941142) T13 POST-TEST PROB (test cod e = 210540) <1/20,000 INTERPRETATION (test code = 039539) See Note IMPORTANT INFORMATION (test code = 877874) See Note RECOMMENDATION (test code = 457259) See Note GESTATION AT [facility] (W) (test code = 298098) 14 weeks GESTATION AT [facility] (D) (test code = 447561) 3 days DELIVERY DATE (EST.) (test code = 874338) 03/02/2024 PROVIDED HISTORY INFORMATION (test code = 256495) NUMBER OF FETUSES (test code = 743959) Romero MATERNAL WEIGHT (test code = 261931) 144 LBS DATING METHOD (test code = 539222) NORTH LMP OR NORTH DATE (test code = 199878) 05/27/2023 IVF (test code = 920421) NO PATIENT CONSENT (test code = 479138) YES SEX (test code = 495522) See Note Topher MichelOJY W/ [id number] 00:00:00* Test Item Value Reference Range Interpretation Comme nts FINAL NIPS RESULT (test code = 93715) Low Risk SEX (test code = 48602) Female FRACTION (EST.) (test code = 59990) 6 % TRISOMY 21 (T21) (test code = 95992) Low probability T21 PRE-TEST PROB (test code = 65130) 1/1,126 T21 POST-TEST PROB (test cod e = 28287) <1/20,000 TRISOMY 18 (T18) (test code = 840461) Low probability T18 PRE-TEST PROB (test code = 211440) 1/2,500 T18 POST-TEST PROB (test cod e = 671036) <1/20,000 TRISOMY 13 (T13) (test code = 646929) Low probability T13 PRE-TEST PROB (test code = 318802) 1/6,927 T13 POST-TEST PROB (test cod e = 898087) <1/20,000 INTERPRETATION (test code = 382105) See Note IMPORTANT INFORMATION (test code = 774850) See Note RECOMMENDATION (test code = 481028) See Note GESTATION AT [facility] (W) (test code = 322904) 14 weeks GESTATION AT [facility] (D) (test code = 678126) 3 days DELIVERY DATE (EST.) (test code = 115384) 03/02/2024 PROVIDED HISTORY INFORMATION (test code = 215167) NUMBER OF FETUSES (test code = 677857) Romero MATERNAL WEIGHT (test code = 292244) 144 LBS DATING METHOD (test code = 546229) NORTH LMP OR NORTH DATE (test code = 335709) 05/27/2023 IVF (test code = 761037) NO PATIENT CONSENT (test code = 742854) YES SEX (test code = 783004) See Note Topher Cody W/ [id number] 00:00:00* Test Item Value Reference Range Interpretation Comme nts FINAL NIPS RESULT (test code = 37419) Low Risk SEX (test code = 38994) Female FRACTION (EST.) (test code = 87003) 6 % TRISOMY 21 (T21) (test code = 18740) Low probability T21 PRE-TEST PROB (test code = 10119) 1/1,126 T21 POST-TEST PROB (test cod e = 41336) <1/20,000 TRISOMY 18 (T18) (test code = 288736) Low probability T18 PRE-TEST PROB (test code = 612674) 1/2,500 T18 POST-TEST PROB (test cod e = 937940) <1/20,000 TRISOMY 13 (T13) (test code = 382614) Low probability T13 PRE-TEST PROB (test code = 714406) 1/6,927 T13 POST-TEST PROB (test cod e = 403800) <1/20,000 INTERPRETATION (test code = 761150) See Note IMPORTANT INFORMATION (test code = 109162) See Note RECOMMENDATION (test code = 209612) See Note GESTATION AT [facility] (W) (test code = 668978) 14 weeks GESTATION AT [facility] (D) (test code = 230400) 3 days DELIVERY DATE (EST.) (test code = 207208) 03/02/2024 PROVIDED HISTORY INFORMATION (test code = 799198) NUMBER OF FETUSES (test code = 173784) Romero MATERNAL WEIGHT (test code = 183549) 144 LBS DATING METHOD (test code = 766862) NORTH LMP OR NORTH DATE (test code = 190701) 05/27/2023 IVF (test code = 019528) NO PATIENT CONSENT (test code = 372035) YES SEX (test code = 501681) See Note Topher TanT W/ [id number] 00:00:00* Test Item Value Reference Range Interpretation Comme nts FINAL NIPS RESULT (test code = 92969) Low Risk SEX (test code = 60473) Female FRACTION (EST.) (test code = 26426) 6 % TRISOMY 21 (T21) (test code = 33188) Low probability T21 PRE-TEST PROB (test code = 53854) /,126 T21 POST-TEST PROB (test cod e = 79041) <1/20,000 TRISOMY 18 (T18) (test code = 635049) Low probability T18 PRE-TEST PROB (test code = 837305) 1/2,500 T18 POST-TEST PROB (test cod e = 163697) <1/20,000 TRISOMY 13 (T13) (test code = 050351) Low probability T13 PRE-TEST PROB (test code = 139417) 6,927 T13 POST-TEST PROB (test cod e = 113444) <1/20,000 INTERPRETATION (test code = 374680) See Note IMPORTANT INFORMATION (test code = 984536) See Note RECOMMENDATION (test code = 789652) See Note GESTATION AT [facility] (W) (test code = 558684) 14 weeks GESTATION AT [facility] (D) (test code = 727879) 3 days DELIVERY DATE (EST.) (test code = 591559) 03/02/2024 PROVIDED HISTORY INFORMATION (test code = 878739) NUMBER OF FETUSES (test code = 507826) Romero MATERNAL WEIGHT (test code = 424612) 144 LBS DATING METHOD (test code = 577342) NORTH LMP OR NORTH DATE (test code = 700212) 05/27/2023 IVF (test code = 798499) NO PATIENT CONSENT (test code = 278305) YES SEX (test code = 777662) See Note Topher Milton URINE PROVIDED:2023-09-06 06:04:57* Test Item Value Reference Range Interpretation Comme nts NO URINE PROVIDED: (test code = 986) (NOTE) NOTE: Patient urine was not provided. Urine testing will be noted out if no urine specimen is received in an appropriate period of time. UNLESS OTHERWISE INDICATED, ALL TESTING PERFORMED AT [facility] [address] [place] [address] PROFESSOR OF RELIGION: SUSAN YANEZ M.D. [place] NUMBER [id number] [facility] [place]. [id number] [ADDED]2023-09-06 00:00:00* Test Item Value Reference [...] PDFE (test code = PDFReport) PDF Topher Michel8 [ADDED]2023-09-06 00:00:00* Test Item Value Reference Range [...] 986) (NOTE) PDFE (test code = PDFReport) KATYA Juarez [id number] 10:47:23SPECIMEN NUMBER: [id number] CULTURE, URINE SPECIMEN NUMBER: [id number] SPECIMEN COMMENT: URINE SOURCE: URINE REPORT STATUS: FINAL FINAL REPORT: 08/19/2023 10-50,000 CFU/ML MIXED MICROBIAL POPULATION PRESENT, NO PREDOMINATING ORGANISMS;PROBABLE CONTAMINANTS. UNLESS OTHERWISE INDICATED, ALL TESTING PERFORMED AT [facility] [address] [place] [address] PROFESSOR OF RELIGION: SUSAN YANEZ M.D. CLIA NUMBER [id number] [facility] [place] [id number], [id number] 00:00:00* Test Item Value Reference Range Interpretation Comme nts CULTURE, URINE (test code = 09684) SPECIMEN NUMBER: [id number] Topher Juarez, [id number] 00:00:00* Test Item Value Reference Range Interpretation Comme nts CULTURE, URINE (test code = 65625) SPECIMEN NUMBER: [id number] Topher Juarez, [id number] 00:00:00* Test Item Value Reference Range Interpretation Comme nts CULTURE, URINE (test code = 97087) SPECIMEN NUMBER: [id number] Topher Juarez, [id number] 00:00:00* Test Item Value Reference Range Interpretation Comme nts CULTURE, URINE (test code = 09596) SPECIMEN NUMBER: [id number] Topher WellsLTKAYLEE, [id number] 00:00:00* Test Item Value Reference Range Interpretation Comme nts CULTURE, URINE (test code = 01464) SPECIMEN NUMBER: [id number] Topher WellsLTKAYLEE, [id number] 00:00:00* Test Item Value Reference Range Interpretation Comme nts CULTURE, URINE (test code = 46961) SPECIMEN NUMBER: [id number] Topher WellsLTKAYLEE, [id number] 00:00:00* Test Item Value Reference Range Interpretation Comme nts CULTURE, URINE (test code = 32353) SPECIMEN NUMBER: [id number] Topher Juarez, [id number] 00:00:00* Test Item Value Reference Range Interpretation Comme nts CULTURE, URINE (test code = 94299) SPECIMEN NUMBER: [id number] Topher Juarez, [id number] 00:00:00* Test Item Value Reference Range Interpretation Comme nts CULTURE, URINE (test code = 15393) SPECIMEN NUMBER: [id number] Topher WellsLTKAYLEE, [id number] 00:00:00* Test Item Value Reference Range Interpretation Comme nts CULTURE, URINE (test code = 49421) SPECIMEN NUMBER: [id number] Topher WellsLTKAYLEE, [id number] 00:00:00* Test Item Value Reference Range Interpretation Comme nts CULTURE, URINE (test code = 23472) SPECIMEN NUMBER: [id number] Topher WellsLTKAYLEE, [id number] 00:00:00* Test Item Value Reference Range Interpretation Comme nts CULTURE, URINE (test code = 95844) SPECIMEN NUMBER: [id number] Topher Aguillon AustinHEMOGLOBIN [id number] 11:52:56* Test Item Value Reference Range Interpretation Comme nts HEMOGLOBIN A1 (test code = 2575) 97.6 % 95.0-98.5 HEMOGLOBIN A2 (test code = 2576) 2.4 % 1.6-3.7 HEMOGLOBIN F () (test code = 2722) 0.0 % 0.0-2.0 HEMOGLOBIN S (test code = 2724) NONE % NONE DETECTED HEMOGLOBIN C (test code = 2726) NONE % NONE DETECTED OTHER HEMOGLOBIN VARIANT (test code = 25837) NONE DETEC % NONE DETECTED PATHOLOGIST'S INTERPRETATION [...] THE DIAGNOSIS OFBETA-THALASSEMIA. DEDE BACA M.D. HEMOGLOBIN [id number] 00:00:00* Test Item Value Reference Range Interpretation Comme nts HEMOGLOBIN A1 (test code = 2575) 97.6 % HEMOGLOBIN A2 (test code = 2576) 2.4 % HEMOGLOBIN F () (test c ode = 2722) 0.0 % HEMOGLOBIN S (test code = 2724) NONE % HEMOGLOBIN C (test code = 2726) NONE % OTHER HEMOGLOBIN VARIANT (te st code = 58232) NONE DETEC % PATHOLOGIST'S INTERPRETATION (test code = 2577) (NOTE) Topher Aguillon AustinHEMOGLOBIN [id number] 00:00:00* Test Item Value Reference Range Interpretation Comme nts HEMOGLOBIN A1 (test code = 2575) 97.6 % HEMOGLOBIN A2 (test code = 2576) 2.4 % HEMOGLOBIN F () (test c ode = 2722) 0.0 % HEMOGLOBIN S (test code = 2724) NONE % HEMOGLOBIN C (test code = 2726) NONE % OTHER HEMOGLOBIN VARIANT (te st code = 89921) NONE DETEC % PATHOLOGIST'S INTERPRETATION (test code = 2577) (NOTE) Topher Aguillon AustinHEMOGLOBIN [id number] 00:00:00* Test Item Value Reference Range Interpretation Comme nts HEMOGLOBIN A1 (test code = 2575) 97.6 % HEMOGLOBIN A2 (test code = 2576) 2.4 % HEMOGLOBIN F () (test c ode = 2722) 0.0 % HEMOGLOBIN S (test code = 2724) NONE % HEMOGLOBIN C (test code = 2726) NONE % OTHER HEMOGLOBIN VARIANT (te st code = 87366) NONE DETEC % PATHOLOGIST'S INTERPRETATION (test code = 2577) (NOTE) Topher Aguillon AustinHEMOGLOBIN [id number] 00:00:00* Test Item Value Reference Range Interpretation Comme nts HEMOGLOBIN A1 (test code = 2575) 97.6 % HEMOGLOBIN A2 (test code = 2576) 2.4 % HEMOGLOBIN F () (test c ode = 2722) 0.0 % HEMOGLOBIN S (test code = 2724) NONE % HEMOGLOBIN C (test code = 2726) NONE % OTHER HEMOGLOBIN VARIANT (te st code = 39025) NONE DETEC % PATHOLOGIST'S INTERPRETATION (test code = 2577) (NOTE) Topher Aguillon AustinHEMOGLOBIN [id number] 00:00:00* Test Item Value Reference Range Interpretation Comme nts HEMOGLOBIN A1 (test code = 2575) 97.6 % HEMOGLOBIN A2 (test code = 2576) 2.4 % HEMOGLOBIN F () (test c ode = 2722) 0.0 % HEMOGLOBIN S (test code = 2724) NONE % HEMOGLOBIN C (test code = 2726) NONE % OTHER HEMOGLOBIN VARIANT (te st code = 97491) NONE DETEC % PATHOLOGIST'S INTERPRETATION (test code = 2577) (NOTE) Topher Aguillon AustinHEMOGLOBIN [id number] 00:00:00* Test Item Value Reference Range Interpretation Comme nts HEMOGLOBIN A1 (test code = 2575) 97.6 % HEMOGLOBIN A2 (test code = 2576) 2.4 % HEMOGLOBIN F () (test c ode = 2722) 0.0 % HEMOGLOBIN S (test code = 2724) NONE % HEMOGLOBIN C (test code = 2726) NONE % OTHER HEMOGLOBIN VARIANT (te st code = 80236) NONE DETEC % PATHOLOGIST'S INTERPRETATION (test code = 2577) (NOTE) Topher Aguillon AustinHEMOGLOBIN [id number] 00:00:00* Test Item Value Reference Range Interpretation Comme nts HEMOGLOBIN A1 (test code = 2575) 97.6 % HEMOGLOBIN A2 (test code = 2576) 2.4 % HEMOGLOBIN F () (test c ode = 2722) 0.0 % HEMOGLOBIN S (test code = 2724) NONE % HEMOGLOBIN C (test code = 2726) NONE % OTHER HEMOGLOBIN VARIANT (te st code = 50091) NONE DETEC % PATHOLOGIST'S INTERPRETATION (test code = 2577) (NOTE) Topher Aguillon AustinHEMOGLOBIN [id number] 00:00:00* Test Item Value Reference Range Interpretation Comme nts HEMOGLOBIN A1 (test code = 2575) 97.6 % HEMOGLOBIN A2 (test code = 2576) 2.4 % HEMOGLOBIN F () (test c ode = 2722) 0.0 % HEMOGLOBIN S (test code = 2724) NONE % HEMOGLOBIN C (test code = 2726) NONE % OTHER HEMOGLOBIN VARIANT (te st code = 51935) NONE DETEC % PATHOLOGIST'S INTERPRETATION (test code = 2577) (NOTE) Topher Aguillon AustinHEMOGLOBIN [id number] 00:00:00* Test Item Value Reference Range Interpretation Comme nts HEMOGLOBIN A1 (test code = 2575) 97.6 % HEMOGLOBIN A2 (test code = 2576) 2.4 % HEMOGLOBIN F () (test c ode = 2722) 0.0 % HEMOGLOBIN S (test code = 2724) NONE % HEMOGLOBIN C (test code = 2726) NONE % OTHER HEMOGLOBIN VARIANT (te st code = 34707) NONE DETEC % PATHOLOGIST'S INTERPRETATION (test code = 2577) (NOTE) Topher Aguillon AustinHEMOGLOBIN [id number] 00:00:00* Test Item Value Reference Range Interpretation Comme nts HEMOGLOBIN A1 (test code = 2575) 97.6 % HEMOGLOBIN A2 (test code = 2576) 2.4 % HEMOGLOBIN F () (test c ode = 2722) 0.0 % HEMOGLOBIN S (test code = 2724) NONE % HEMOGLOBIN C (test code = 2726) NONE % OTHER HEMOGLOBIN VARIANT (te st code = 32277) NONE DETEC % PATHOLOGIST'S INTERPRETATION (test code = 2577) (NOTE) Topher Aguillon AustinHEMOGLOBIN [id number] 00:00:00* Test Item Value Reference Range Interpretation Comme nts HEMOGLOBIN A1 (test code = 2575) 97.6 % HEMOGLOBIN A2 (test code = 2576) 2.4 % HEMOGLOBIN F () (test c ode = 2722) 0.0 % HEMOGLOBIN S (test code = 2724) NONE % HEMOGLOBIN C (test code = 2726) NONE % OTHER HEMOGLOBIN VARIANT (te st code = 01250) NONE DETEC % PATHOLOGIST'S INTERPRETATION (test code = 2577) (NOTE) Topher F AustinHEMOGLOBIN [id number] 00:00:00* Test Item Value Reference Range Interpretation Comme nts HEMOGLOBIN A1 (test code = 2575) 97.6 % HEMOGLOBIN A2 (test code = 2576) 2.4 % HEMOGLOBIN F () (test c ode = 2722) 0.0 % HEMOGLOBIN S (test code = 2724) NONE % HEMOGLOBIN C (test code = 2726) NONE % OTHER HEMOGLOBIN VARIANT (te st code = 48498) NONE DETEC % PATHOLOGIST'S INTERPRETATION (test code = 2577) (NOTE) Topher MichelPAP TEST, THINPREP, [id number] 16:57:26* Test Item Value Reference Range Interpretation Comme nts SOURCE: (test code = 8001) Cervical/Endoce rvical SLIDES: (test code = 8011) 2 LMP: (test code = 8021) 05/27/2023 SPECIMEN ADEQUACY: (test code = 06552) (NOTE) Satisfactory for evaluation. Endocervical cells/transformation zone component present. INTERPRETATION: (test code = 05937) NILM/NO EPITH. ABNORMALITY;SEE BELOW --- - NEGATIVE FOR INTRAEPITHELIAL LESION OR MALIGNANCY (NILM) ---- OTHER COMMENTS: (test code = 8081) (NOTE) Shift in chrystal suggestive of bacterial vaginosis. Glacial acetic acid added due to blood/mucus in specimen. RESTAURANT MANAGER : (test code = 8101) Jennifer Martell, CT(ASCP) QC TECHNOLOGIST: (test code = 8111) Johnnie VergaraSCT(ASCP)I LOCATION: (test code = 34493) (NOTE) Specimens proces sed and interpreted at [facility], [address] [place] [address], , CLIA: [id number] CPT: (test code = 8140) (NOTE) [address] UNLESS OTH ERWISE INDICATED, COMPUTER AIDED AND RESTAURANT MANAGER SCREENING PERFORMED. The Pap test is a screening test with an inherent, but low probability of error. Your patient should be reminded to consult you immediately if she experiences any suspicious signs or symptoms, regardless of her Pap test result. An alternate report format containing images or consolidated prior Pap history is available as applicable. VARICELLA ZOSTER [id number] 13:20:46* Test Item Value Reference Range Interpretation Comme nts VARICELLA ZOSTER IgG (test code = 13314) 1182 INDEX SEE BELOW INTERPRETATION V ZV [...] . . . . INDEX >=165 HCG, [id number] 06:33:57* Test Item Value Reference Range Interpretation Comme nts HCG, QUANTITATIVE (test code = 2506) 27479 MIU/ML SEE BELOW EXPECTED VALUES FOR HCG [...] . . . . . . MIU/ML [id number] FEMALES . . . . . . . . . . . . MIU/ML <=7 DRUG ABUSE SCREEN 10 REFLEX [id number] 05:54:57* Test Item Value Reference Range Interpretation Comme nts AMPHETAMINES (test code = 3201) NEGATIVE NEGATIVE BARBITURATES (test code = 3202) NEGATIVE NEGATIVE BENZODIAZEPINES (test code = 3203) NEGATIVE NEGATIVE CANNABINOIDS (test code = 3204) NEGATIVE NEGATIVE COCAINE METABOLITE (test code = 3205) NEGATIVE NEGATIVE OPIATES (test code = 3209) NEGATIVE NEGATIVE OXYCODONE (test code = 15668) NEGATIVE NEGATIVE PHENCYCLIDINE (test code = 3210) NEGATIVE NEGATIVE METHADONE (test code = 3207) NEGATIVE NEGATIVE BUPRENORPHINE (test code = 06953) NEGATIVE NEGATIVE SOURCE (test code = 727004) URINE SEE BELOW FO R THRESHOLDS AND [...] PERFORMED AT [facility] [address] [place] [address] PROFESSOR OF RELIGION: SUSAN YANEZ M.D. [place] NUMBER [id number] [facility]. [id number] OBSTETRIC PANEL + [id number] 05:53:01* Test Item Value Reference Range Interpretation [...] 0.00-0.10 ABS NUCLEATED RBCS (test code = 03507) 0.00 K/UL 0.00-0.11 BLOOD TYPE AND RH [...] BELOW RUBELLA IgG INTERP (test code = 64488) REACTIVE REACTIVE INTERPRETATI ON UNITS RANGE NON-REACTIVE/NON-IMM UNE IU/ML <10 REACTIVE/IMMUNE IU/ML >=10 HEPATITIS B SURF AG (test code = 2739) NON-REACTIVE NON-REACTIVE RPR (test code = 41106) NON-REACTIVE NON-REACTIVE RPR TITER (test code = 3500) NOT INDIC. TITER NOT INDIC. HIV 1/2 4TH GEN, RFLX CONF (test code = 3514) NON-REACTIVE NON-REACTIVE HEPATITIS C [id number] 05:53:01* Test Item Value Reference Range Interpretation Comme nts HEPATITIS C ANTIBODY (test c ode = 4675) NON-REACTIVE NON-REACTIVE [id number] 03:48:39* Test Item Value Reference Range Interpretation Comme nts RPR RESULT (test code = 3501) NON-REACTIVE NON-REACTIVE RPR TITER (test code = 3500) NOT INDIC. TITER NOT INDIC. OBSTETRIC PANEL + [id number] 00:00:00* Test Item Value Reference Range Interpretation [...] K/UL ABS NUCLEATED RBCS (test code = 50752) 0.00 K/UL BLOOD TYPE AND RH (test code = 3901) B POSITIVE ANTIBODY SCREEN (test code = 3902) NEGATIVE RUBELLA ANTIBODY SCREEN (test code = 4600) 177 IU/ML RUBELLA IgG INTERP (test code = 95721) REACTIVE HEPATITIS B SURF AG (test code = 2739) NON-REACTIVE RPR (test code = 55204) NON-REACTIVE RPR TITER (test code = 3500) NOT INDIC. TITER HIV 1/2 4TH GEN, RFLX CONF (test code = 3514) NON-REACTIVE Topher Jimenez TEST, THINPREP, [id number] 00:00:00* Test Item Value Reference Range Interpretation Comme nts SOURCE: (test code = 8001) Cervical/Endocervical SLIDES: (test code = 8011) 2 LMP: (test code = 8021) 05/27/2023 SPECIMEN ADEQUACY: (test code = 18398) (NOTE) INTERPRETATION: (test code = 30939) NILM/NO EPITH. ABNORMALITY;SEE BELOW OTHER COMMENTS: (test code = 8081) (NOTE) RESTAURANT MANAGER: (test code = 8101) Jennifer Martell, CT(ASCP) QC TECHNOLOGIST: (test code = 8111) Johnnie Vergara,SCT(ASCP)IAC LOCATION: (test code = 38098) (NOTE) CPT: (test code = 8140) (NOTE) Topher F AustinHEPATITIS C [id number] 00:00:00* Test Item Value Reference Range Interpretation Comme aixa HEPATITIS C ANTIBODY (test c ode = 4675) NON-REACTIVE Topher MichelVARICELLA ZOSTER [id number] 00:00:00* Test Item Value Reference Range Interpretation Comme aixa VARICELLA ZOSTER IgG (test c ode = 97252) 1182 INDEX Topher MichelDRUG ABUSE SCREEN 10 REFLEX [id number] 00:00:00* Test Item Value Reference Range Interpretation Comme nts AMPHETAMINES (test code = 3201) NEGATIVE BARBITURATES (test code = 3202) NEGATIVE BENZODIAZEPINES (test code = 3203) NEGATIVE CANNABINOIDS (test code = 3204) NEGATIVE COCAINE METABOLITE (test cod e = 3205) NEGATIVE OPIATES (test code = 3209) NEGATIVE OXYCODONE (test code = 99720) NEGATIVE PHENCYCLIDINE (test code = 3210) NEGATIVE METHADONE (test code = 3207) NEGATIVE BUPRENORPHINE (test code = 04616) NEGATIVE SOURCE (test code = 572988) URINE Topher MichelHCG, [id number] 00:00:00* Test Item Value Reference Range Interpretation Comme aixa HCG, QUANTITATIVE (test code = 2506) 67891 MIU/ML Topher [id number] 00:00:00* Test Item Value Reference Range Interpretation Comme nts RPR RESULT (test code = 3501) NON-REACTIVE RPR TITER (test code = 3500) NOT INDIC. TITER Topher MichelOBSTETRIC PANEL + [id number] 00:00:00* Test Item Value Reference Range Interpretation [...] K/UL ABS NUCLEATED RBCS (test code = 90714) 0.00 K/UL BLOOD TYPE AND RH (test code = 3901) B POSITIVE ANTIBODY SCREEN (test code = 3902) NEGATIVE RUBELLA ANTIBODY SCREEN (test code = 4600) 177 IU/ML RUBELLA IgG INTERP (test code = 95618) REACTIVE HEPATITIS B SURF AG (test code = 2739) NON-REACTIVE RPR (test code = 66915) NON-REACTIVE RPR TITER (test code = 3500) NOT INDIC. TITER HIV 1/2 4TH GEN, RFLX CONF (test code = 3514) NON-REACTIVE Topher Aguillon AustinHEPATITIS C [id number] 00:00:00* Test Item Value Reference Range Interpretation Comme nts HEPATITIS C ANTIBODY (test c ode = 4675) NON-REACTIVE Topher Aguillon AustinPAP TEST, THINPREP, [id number] 00:00:00* Test Item Value Reference Range Interpretation Comme nts SOURCE: (test code = 8001) Cervical/Endocervical SLIDES: (test code = 8011) 2 LMP: (test code = 8021) 05/27/2023 SPECIMEN ADEQUACY: (test code = 90850) (NOTE) INTERPRETATION: (test code = 74611) NILM/NO EPITH. ABNORMALITY;SEE BELOW OTHER COMMENTS: (test code = 8081) (NOTE) RESTAURANT MANAGER: (test code = 8101) Jennifer Martell, CT(ASCP) QC TECHNOLOGIST: (test code = 8111) Johnnie Vergara,SCT(ASCP)IAC LOCATION: (test code = 12629) (NOTE) CPT: (test code = 8140) (NOTE) Topher MichelVARICELLA ZOSTER [id number] 00:00:00* Test Item Value Reference Range Interpretation Comme nts VARICELLA ZOSTER IgG (test c ode = 10067) 1182 INDEX Topher MichelDRUG ABUSE SCREEN 10 REFLEX [id number] 00:00:00* Test Item Value Reference Range Interpretation Comme nts AMPHETAMINES (test code = 3201) NEGATIVE BARBITURATES (test code = 3202) NEGATIVE BENZODIAZEPINES (test code = 3203) NEGATIVE CANNABINOIDS (test code = 3204) NEGATIVE COCAINE METABOLITE (test cod e = 3205) NEGATIVE OPIATES (test code = 3209) NEGATIVE OXYCODONE (test code = 35873) NEGATIVE PHENCYCLIDINE (test code = 3210) NEGATIVE METHADONE (test code = 3207) NEGATIVE BUPRENORPHINE (test code = 24100) NEGATIVE SOURCE (test code = 738912) URINE Topher MichelHCG, [id number] 00:00:00* Test Item Value Reference Range Interpretation Comme nts HCG, QUANTITATIVE (test code = 2506) 49075 MIU/ML Topher [id number] 00:00:00* Test Item Value Reference Range Interpretation Comme nts RPR RESULT (test code = 3501) NON-REACTIVE RPR TITER (test code = 3500) NOT INDIC. TITER Topher MichelOBSTETRIC PANEL + [id number] 00:00:00* Test Item Value Reference Range Interpretation [...] K/UL ABS NUCLEATED RBCS (test code = 43989) 0.00 K/UL BLOOD TYPE AND RH (test code = 3901) B POSITIVE ANTIBODY SCREEN (test code = 3902) NEGATIVE RUBELLA ANTIBODY SCREEN (test code = 4600) 177 IU/ML RUBELLA IgG INTERP (test code = 42533) REACTIVE HEPATITIS B SURF AG (test code = 2739) NON-REACTIVE RPR (test code = 43703) NON-REACTIVE RPR TITER (test code = 3500) NOT INDIC. TITER HIV 1/2 4TH GEN, RFLX CONF (test code = 3514) NON-REACTIVE Topher Aguillon AustinHEPATITIS C [id number] 00:00:00* Test Item Value Reference Range Interpretation Comme nts HEPATITIS C ANTIBODY (test c ode = 4675) NON-REACTIVE Topher Aguillon AustinPAP TEST, THINPREP, [id number] 00:00:00* Test Item Value Reference Range Interpretation Comme nts SOURCE: (test code = 8001) Cervical/Endocervical SLIDES: (test code = 8011) 2 LMP: (test code = 8021) 05/27/2023 SPECIMEN ADEQUACY: (test code = 52708) (NOTE) INTERPRETATION: (test code = 50117) NILM/NO EPITH. ABNORMALITY;SEE BELOW OTHER COMMENTS: (test code = 8081) (NOTE) RESTAURANT MANAGER: (test code = 8101) Jennifer Martell, CT(ASCP) QC TECHNOLOGIST: (test code = 8111) Johnnie Vergara,SCT(ASCP)IAC LOCATION: (test code = 92076) (NOTE) CPT: (test code = 8140) (NOTE) Topher MichelVARICELLA ZOSTER [id number] 00:00:00* Test Item Value Reference Range Interpretation Comme nts VARICELLA ZOSTER IgG (test c ode = 94421) 1182 INDEX Topher MichelDRUG ABUSE SCREEN 10 REFLEX [id number] 00:00:00* Test Item Value Reference Range Interpretation Comme nts AMPHETAMINES (test code = 3201) NEGATIVE BARBITURATES (test code = 3202) NEGATIVE BENZODIAZEPINES (test code = 3203) NEGATIVE CANNABINOIDS (test code = 3204) NEGATIVE COCAINE METABOLITE (test cod e = 3205) NEGATIVE OPIATES (test code = 3209) NEGATIVE OXYCODONE (test code = 46498) NEGATIVE PHENCYCLIDINE (test code = 3210) NEGATIVE METHADONE (test code = 3207) NEGATIVE BUPRENORPHINE (test code = 60600) NEGATIVE SOURCE (test code = 120983) URINE Topher MichelHCG, [id number] 00:00:00* Test Item Value Reference Range Interpretation Comme aixa HCG, QUANTITATIVE (test code = 2506) 35053 MIU/ML Topher [id number] 00:00:00* Test Item Value Reference Range Interpretation Comme nts RPR RESULT (test code = 3501) NON-REACTIVE RPR TITER (test code = 3500) NOT INDIC. TITER Topher MichelOBSTETRIC PANEL + [id number] 00:00:00* Test Item Value Reference Range Interpretation [...] K/UL ABS NUCLEATED RBCS (test code = 90501) 0.00 K/UL BLOOD TYPE AND RH (test code = 3901) B POSITIVE ANTIBODY SCREEN (test code = 3902) NEGATIVE RUBELLA ANTIBODY SCREEN (test code = 4600) 177 IU/ML RUBELLA IgG INTERP (test code = 58721) REACTIVE HEPATITIS B SURF AG (test code = 2739) NON-REACTIVE RPR (test code = 22187) NON-REACTIVE RPR TITER (test code = 3500) NOT INDIC. TITER HIV 1/2 4TH GEN, RFLX CONF (test code = 3514) NON-REACTIVE Topher Jimenez TEST, THINPREP, [id number] 00:00:00* Test Item Value Reference Range Interpretation Comme nts SOURCE: (test code = 8001) Cervical/Endocervical SLIDES: (test code = 8011) 2 LMP: (test code = 8021) 05/27/2023 SPECIMEN ADEQUACY: (test code = 81951) (NOTE) INTERPRETATION: (test code = 70366) NILM/NO EPITH. ABNORMALITY;SEE BELOW OTHER COMMENTS: (test code = 8081) (NOTE) RESTAURANT MANAGER: (test code = 8101) Jennifer Martell, CT(ASCP) QC TECHNOLOGIST: (test code = 8111) Johnnie Vergara,SCT(ASCP)IAC LOCATION: (test code = 08098) (NOTE) CPT: (test code = 8140) (NOTE) Topher QuickPATITIS C [id number] 00:00:00* Test Item Value Reference Range Interpretation Comme nts HEPATITIS C ANTIBODY (test c ode = 4675) NON-REACTIVE Topher F AustinVARICELLA ZOSTER [id number] 00:00:00* Test Item Value Reference Range Interpretation Comme aixa VARICELLA ZOSTER IgG (test c ode = 78288) 1182 INDEX Topher MichelDRUG ABUSE SCREEN 10 REFLEX [id number] 00:00:00* Test Item Value Reference Range Interpretation Comme nts AMPHETAMINES (test code = 3201) NEGATIVE BARBITURATES (test code = 3202) NEGATIVE BENZODIAZEPINES (test code = 3203) NEGATIVE CANNABINOIDS (test code = 3204) NEGATIVE COCAINE METABOLITE (test cod e = 3205) NEGATIVE OPIATES (test code = 3209) NEGATIVE OXYCODONE (test code = 98036) NEGATIVE PHENCYCLIDINE (test code = 3210) NEGATIVE METHADONE (test code = 3207) NEGATIVE BUPRENORPHINE (test code = 11423) NEGATIVE SOURCE (test code = 641501) URINE Topher MichelHCG, [id number] 00:00:00* Test Item Value Reference Range Interpretation Comme aixa HCG, QUANTITATIVE (test code = 2506) 51274 MIU/ML Topher [id number] 00:00:00* Test Item Value Reference Range Interpretation Comme nts RPR RESULT (test code = 3501) NON-REACTIVE RPR TITER (test code = 3500) NOT INDIC. TITER Topher MichelOBSTETRIC PANEL + [id number] 00:00:00* Test Item Value Reference Range Interpretation Comme aixa WBC (test code = 1001) 7.4 K/UL [...] K/UL ABS NUCLEATED RBCS (test code = 22359) 0.00 K/UL BLOOD TYPE AND RH (test code = 3901) B POSITIVE ANTIBODY SCREEN (test code = 3902) NEGATIVE RUBELLA ANTIBODY SCREEN (test code = 4600) 177 IU/ML RUBELLA IgG INTERP (test code = 40844) REACTIVE HEPATITIS B SURF AG (test code = 2739) NON-REACTIVE RPR (test code = 64293) NON-REACTIVE RPR TITER (test code = 3500) NOT INDIC. TITER HIV 1/2 4TH GEN, RFLX CONF (test code = 3514) NON-REACTIVE Topher MichelHEPATITIS C [id number] 00:00:00* Test Item Value Reference Range Interpretation Comme nts HEPATITIS C ANTIBODY (test c ode = 4675) NON-REACTIVE Topher MichelPAP TEST, THINPREP, [id number] 00:00:00* Test Item Value Reference Range Interpretation Comme nts SOURCE: (test code = 8001) Cervical/Endocervical SLIDES: (test code = 8011) 2 LMP: (test code = 8021) 05/27/2023 SPECIMEN ADEQUACY: (test code = 46818) (NOTE) INTERPRETATION: (test code = 83520) NILM/NO EPITH. ABNORMALITY;SEE BELOW OTHER COMMENTS: (test code = 8081) (NOTE) RESTAURANT MANAGER: (test code = 8101) Jennifer Martell, CT(ASCP) QC TECHNOLOGIST: (test code = 8111) Johnnie Vergara,SCT(ASCP)IAC LOCATION: (test code = 45040) (NOTE) CPT: (test code = 8140) (NOTE) Topher MichelVARICELLA ZOSTER [id number] 00:00:00* Test Item Value Reference Range Interpretation Comme nts VARICELLA ZOSTER IgG (test c ode = 06781) 1182 INDEX Topher MichelDRUG ABUSE SCREEN 10 REFLEX [id number] 00:00:00* Test Item Value Reference Range Interpretation Comme nts AMPHETAMINES (test code = 3201) NEGATIVE BARBITURATES (test code = 3202) NEGATIVE BENZODIAZEPINES (test code = 3203) NEGATIVE CANNABINOIDS (test code = 3204) NEGATIVE COCAINE METABOLITE (test cod e = 3205) NEGATIVE OPIATES (test code = 3209) NEGATIVE OXYCODONE (test code = 02200) NEGATIVE PHENCYCLIDINE (test code = 3210) NEGATIVE METHADONE (test code = 3207) NEGATIVE BUPRENORPHINE (test code = 29431) NEGATIVE SOURCE (test code = 553618) URINE Topher MichelHCG, [id number] 00:00:00* Test Item Value Reference Range Interpretation Comme nts HCG, QUANTITATIVE (test code = 2506) 79327 MIU/ML Topher [id number] 00:00:00* Test Item Value Reference Range Interpretation Comme nts RPR RESULT (test code = 3501) NON-REACTIVE RPR TITER (test code = 3500) NOT INDIC. TITER Topher MichelOBSTETRIC PANEL + [id number] 00:00:00* Test Item Value Reference Range Interpretation [...] K/UL ABS NUCLEATED RBCS (test code = 21418) 0.00 K/UL BLOOD TYPE AND RH (test code = 3901) B POSITIVE ANTIBODY SCREEN (test code = 3902) NEGATIVE RUBELLA ANTIBODY SCREEN (test code = 4600) 177 IU/ML RUBELLA IgG INTERP (test code = 23510) REACTIVE HEPATITIS B SURF AG (test code = 2739) NON-REACTIVE RPR (test code = 75201) NON-REACTIVE RPR TITER (test code = 3500) NOT INDIC. TITER HIV 1/2 4TH GEN, RFLX CONF (test code = 3514) NON-REACTIVE Topher MichelHEPATITIS C [id number] 00:00:00* Test Item Value Reference Range Interpretation Comme nts HEPATITIS C ANTIBODY (test c ode = 4675) NON-REACTIVE Topher MichelPAP TEST, THINPREP, [id number] 00:00:00* Test Item Value Reference Range Interpretation Comme nts SOURCE: (test code = 8001) Cervical/Endocervical SLIDES: (test code = 8011) 2 LMP: (test code = 8021) 05/27/2023 SPECIMEN ADEQUACY: (test code = 00140) (NOTE) INTERPRETATION: (test code = 20045) NILM/NO EPITH. ABNORMALITY;SEE BELOW OTHER COMMENTS: (test code = 8081) (NOTE) RESTAURANT MANAGER: (test code = 8101) Jennifer Martell, CT(ASCP) QC TECHNOLOGIST: (test code = 8111) Johnnie Vergara,SCT(ASCP)IAC LOCATION: (test code = 62774) (NOTE) CPT: (test code = 8140) (NOTE) Topher Aguillon AustinVARICELLA ZOSTER [id number] 00:00:00* Test Item Value Reference Range Interpretation Comme nts VARICELLA ZOSTER IgG (test c ode = 24902) 1182 INDEX Topher MichelDRUG ABUSE SCREEN 10 REFLEX [id number] 00:00:00* Test Item Value Reference Range Interpretation Comme nts AMPHETAMINES (test code = 3201) NEGATIVE BARBITURATES (test code = 3202) NEGATIVE BENZODIAZEPINES (test code = 3203) NEGATIVE CANNABINOIDS (test code = 3204) NEGATIVE COCAINE METABOLITE (test cod e = 3205) NEGATIVE OPIATES (test code = 3209) NEGATIVE OXYCODONE (test code = 65721) NEGATIVE PHENCYCLIDINE (test code = 3210) NEGATIVE METHADONE (test code = 3207) NEGATIVE BUPRENORPHINE (test code = 03927) NEGATIVE SOURCE (test code = 635664) URINE Topher MichelHCG, [id number] 00:00:00* Test Item Value Reference Range Interpretation Comme aixa HCG, QUANTITATIVE (test code = 2506) 71053 MIU/ML Topher [id number] 00:00:00* Test Item Value Reference Range Interpretation Comme nts RPR RESULT (test code = 3501) NON-REACTIVE RPR TITER (test code = 3500) NOT INDIC. TITER Topher MichelOBSTETRIC PANEL + [id number] 00:00:00* Test Item Value Reference Range Interpretation [...] K/UL ABS NUCLEATED RBCS (test code = 38934) 0.00 K/UL BLOOD TYPE AND RH (test code = 3901) B POSITIVE ANTIBODY SCREEN (test code = 3902) NEGATIVE RUBELLA ANTIBODY SCREEN (test code = 4600) 177 IU/ML RUBELLA IgG INTERP (test code = 12557) REACTIVE HEPATITIS B SURF AG (test code = 2739) NON-REACTIVE RPR (test code = 87344) NON-REACTIVE RPR TITER (test code = 3500) NOT INDIC. TITER HIV 1/2 4TH GEN, RFLX CONF (test code = 3514) NON-REACTIVE Topher MichelHEPATITIS C [id number] 00:00:00* Test Item Value Reference Range Interpretation Comme nts HEPATITIS C ANTIBODY (test c ode = 4675) NON-REACTIVE Topher MichelPAP TEST, THINPREP, [id number] 00:00:00* Test Item Value Reference Range Interpretation Comme nts SOURCE: (test code = 8001) Cervical/Endocervical SLIDES: (test code = 8011) 2 LMP: (test code = 8021) 05/27/2023 SPECIMEN ADEQUACY: (test code = 28009) (NOTE) INTERPRETATION: (test code = 73368) NILM/NO EPITH. ABNORMALITY;SEE BELOW OTHER COMMENTS: (test code = 8081) (NOTE) RESTAURANT MANAGER: (test code = 8101) Jennifer Martell, CT(ASCP) QC TECHNOLOGIST: (test code = 8111) Johnnie Vergara,SCT(ASCP)IAC LOCATION: (test code = 82530) (NOTE) CPT: (test code = 8140) (NOTE) Topher MichelVARICELLA ZOSTER [id number] 00:00:00* Test Item Value Reference Range Interpretation Comme nts VARICELLA ZOSTER IgG (test c ode = 68726) 1182 INDEX Topher MichelDRUG ABUSE SCREEN 10 REFLEX [id number] 00:00:00* Test Item Value Reference Range Interpretation Comme nts AMPHETAMINES (test code = 3201) NEGATIVE BARBITURATES (test code = 3202) NEGATIVE BENZODIAZEPINES (test code = 3203) NEGATIVE CANNABINOIDS (test code = 3204) NEGATIVE COCAINE METABOLITE (test cod e = 3205) NEGATIVE OPIATES (test code = 3209) NEGATIVE OXYCODONE (test code = 83618) NEGATIVE PHENCYCLIDINE (test code = 3210) NEGATIVE METHADONE (test code = 3207) NEGATIVE BUPRENORPHINE (test code = 21480) NEGATIVE SOURCE (test code = 907920) URINE Topher MichelHCG, [id number] 00:00:00* Test Item Value Reference Range Interpretation Comme nts HCG, QUANTITATIVE (test code = 2506) 28411 MIU/ML Topher [id number] 00:00:00* Test Item Value Reference Range Interpretation Comme nts RPR RESULT (test code = 3501) NON-REACTIVE RPR TITER (test code = 3500) NOT INDIC. TITER Topher MichelOBSTETRIC PANEL + [id number] 00:00:00* Test Item Value Reference Range Interpretation [...] K/UL ABS NUCLEATED RBCS (test code = 77445) 0.00 K/UL BLOOD TYPE AND RH (test code = 3901) B POSITIVE ANTIBODY SCREEN (test code = 3902) NEGATIVE RUBELLA ANTIBODY SCREEN (test code = 4600) 177 IU/ML RUBELLA IgG INTERP (test code = 77210) REACTIVE HEPATITIS B SURF AG (test code = 2739) NON-REACTIVE RPR (test code = 37189) NON-REACTIVE RPR TITER (test code = 3500) NOT INDIC. TITER HIV 1/2 4TH GEN, RFLX CONF (test code = 3514) NON-REACTIVE Topher MichelHEPATITIS C [id number] 00:00:00* Test Item Value Reference Range Interpretation Comme nts HEPATITIS C ANTIBODY (test c ode = 4675) NON-REACTIVE Topher MichelPAP TEST, THINPREP, [id number] 00:00:00* Test Item Value Reference Range Interpretation Comme nts SOURCE: (test code = 8001) Cervical/Endocervical SLIDES: (test code = 8011) 2 LMP: (test code = 8021) 05/27/2023 SPECIMEN ADEQUACY: (test code = 98386) (NOTE) INTERPRETATION: (test code = 61891) NILM/NO EPITH. ABNORMALITY;SEE BELOW OTHER COMMENTS: (test code = 8081) (NOTE) RESTAURANT MANAGER: (test code = 8101) Jennifer Martell, CT(ASCP) QC TECHNOLOGIST: (test code = 8111) Johnnie Vergara,SCT(ASCP)IAC LOCATION: (test code = 94198) (NOTE) CPT: (test code = 8140) (NOTE) Topher MichelVARICELLA ZOSTER [id number] 00:00:00* Test Item Value Reference Range Interpretation Comme nts VARICELLA ZOSTER IgG (test c ode = 72151) 1182 INDEX Topher MichelDRUG ABUSE SCREEN 10 REFLEX [id number] 00:00:00* Test Item Value Reference Range Interpretation Comme nts AMPHETAMINES (test code = 3201) NEGATIVE BARBITURATES (test code = 3202) NEGATIVE BENZODIAZEPINES (test code = 3203) NEGATIVE CANNABINOIDS (test code = 3204) NEGATIVE COCAINE METABOLITE (test cod e = 3205) NEGATIVE OPIATES (test code = 3209) NEGATIVE OXYCODONE (test code = 90667) NEGATIVE PHENCYCLIDINE (test code = 3210) NEGATIVE METHADONE (test code = 3207) NEGATIVE BUPRENORPHINE (test code = 58859) NEGATIVE SOURCE (test code = 660285) URINE Topher MichelHCG, [id number] 00:00:00* Test Item Value Reference Range Interpretation Comme nts HCG, QUANTITATIVE (test code = 2506) 91424 MIU/ML Topher [id number] 00:00:00* Test Item Value Reference Range Interpretation Comme nts RPR RESULT (test code = 3501) NON-REACTIVE RPR TITER (test code = 3500) NOT INDIC. TITER Topher MichelOBSTETRIC PANEL + [id number] 00:00:00* Test Item Value Reference Range Interpretation [...] K/UL ABS NUCLEATED RBCS (test code = 76827) 0.00 K/UL BLOOD TYPE AND RH (test code = 3901) B POSITIVE ANTIBODY SCREEN (test code = 3902) NEGATIVE RUBELLA ANTIBODY SCREEN (test code = 4600) 177 IU/ML RUBELLA IgG INTERP (test code = 77174) REACTIVE HEPATITIS B SURF AG (test code = 2739) NON-REACTIVE RPR (test code = 71276) NON-REACTIVE RPR TITER (test code = 3500) NOT INDIC. TITER HIV 1/2 4TH GEN, RFLX CONF (test code = 3514) NON-REACTIVE Topher MichelHEPATITIS C [id number] 00:00:00* Test Item Value Reference Range Interpretation Comme nts HEPATITIS C ANTIBODY (test c ode = 4675) NON-REACTIVE Topher MichelPAP TEST, THINPREP, [id number] 00:00:00* Test Item Value Reference Range Interpretation Comme nts SOURCE: (test code = 8001) Cervical/Endocervical SLIDES: (test code = 8011) 2 LMP: (test code = 8021) 05/27/2023 SPECIMEN ADEQUACY: (test code = 31480) (NOTE) INTERPRETATION: (test code = 37604) NILM/NO EPITH. ABNORMALITY;SEE BELOW OTHER COMMENTS: (test code = 8081) (NOTE) RESTAURANT MANAGER: (test code = 8101) Jennifer Martell, CT([facility]) QC TECHNOLOGIST: (test code = 8111) Johnnie Vergara,SCT([facility])IAC LOCATION: (test code = 17306) (NOTE) CPT: (test code = 8140) (NOTE) Topher MichelVARICELLA ZOSTER [id number] 00:00:00* Test Item Value Reference Range Interpretation Comme nts VARICELLA ZOSTER IgG (test c ode = 04446) 1182 INDEX Topher Aguillon AustinDRUG ABUSE SCREEN 10 REFLEX [id number] 00:00:00* Test Item Value Reference Range Interpretation Comme nts AMPHETAMINES (test code = 3201) NEGATIVE BARBITURATES (test code = 3202) NEGATIVE BENZODIAZEPINES (test code = 3203) NEGATIVE CANNABINOIDS (test code = 3204) NEGATIVE COCAINE METABOLITE (test cod e = 3205) NEGATIVE OPIATES (test code = 3209) NEGATIVE OXYCODONE (test code = 64188) NEGATIVE PHENCYCLIDINE (test code = 3210) NEGATIVE METHADONE (test code = 3207) NEGATIVE BUPRENORPHINE (test code = 10045) NEGATIVE SOURCE (test code = 136415) URINE Topher MichelHCG, [id number] 00:00:00* Test Item Value Reference Range Interpretation Comme nts HCG, QUANTITATIVE (test code = 2506) 47841 MIU/ML Topher [id number] 00:00:00* Test Item Value Reference Range Interpretation Comme nts RPR RESULT (test code = 3501) NON-REACTIVE RPR TITER (test code = 3500) NOT INDIC. TITER Topher MichelOBSTETRIC PANEL + [id number] 00:00:00* Test Item Value Reference Range Interpretation [...] K/UL ABS NUCLEATED RBCS (test code = 82214) 0.00 K/UL BLOOD TYPE AND RH (test code = 3901) B POSITIVE ANTIBODY SCREEN (test code = 3902) NEGATIVE RUBELLA ANTIBODY SCREEN (test code = 4600) 177 IU/ML RUBELLA IgG INTERP (test code = 46955) REACTIVE HEPATITIS B SURF AG (test code = 2739) NON-REACTIVE RPR (test code = 99347) NON-REACTIVE RPR TITER (test code = 3500) NOT INDIC. TITER HIV 1/2 4TH GEN, RFLX CONF (test code = 3514) NON-REACTIVE Topher MichelPAP TEST, THINPREP, [id number] 00:00:00* Test Item Value Reference Range Interpretation Comme nts SOURCE: (test code = 8001) Cervical/Endocervical SLIDES: (test code = 8011) 2 LMP: (test code = 8021) 05/27/2023 SPECIMEN ADEQUACY: (test code = 56599) (NOTE) INTERPRETATION: (test code = 87372) NILM/NO EPITH. ABNORMALITY;SEE BELOW OTHER COMMENTS: (test code = 8081) (NOTE) RESTAURANT MANAGER: (test code = 8101) Jennifer Martell, CT(ASCP) QC TECHNOLOGIST: (test code = 8111) Johnnie Vergara,[facility](ASCP)IAC LOCATION: (test code = 82232) (NOTE) CPT: (test code = 8140) (NOTE) Topher Aguillon AustinHEPATITIS C [id number] 00:00:00* Test Item Value Reference Range Interpretation Comme nts HEPATITIS C ANTIBODY (test c ode = 4675) NON-REACTIVE Topher MichelVARICELLA ZOSTER [id number] 00:00:00* Test Item Value Reference Range Interpretation Comme nts VARICELLA ZOSTER IgG (test c ode = 08932) 1182 INDEX Topher MichelDRUG ABUSE SCREEN 10 REFLEX [id number] 00:00:00* Test Item Value Reference Range Interpretation Comme nts AMPHETAMINES (test code = 3201) NEGATIVE BARBITURATES (test code = 3202) NEGATIVE BENZODIAZEPINES (test code = 3203) NEGATIVE CANNABINOIDS (test code = 3204) NEGATIVE COCAINE METABOLITE (test cod e = 3205) NEGATIVE OPIATES (test code = 3209) NEGATIVE OXYCODONE (test code = 48188) NEGATIVE PHENCYCLIDINE (test code = 3210) NEGATIVE METHADONE (test code = 3207) NEGATIVE BUPRENORPHINE (test code = 37894) NEGATIVE SOURCE (test code = 733037) URINE Topher MichelHCG, [id number] 00:00:00* Test Item Value Reference Range Interpretation Comme nts HCG, QUANTITATIVE (test code = 2506) 26765 MIU/ML Topher Aguillon [id number] 00:00:00* Test Item Value Reference Range Interpretation Comme nts RPR RESULT (test code = 3501) NON-REACTIVE RPR TITER (test code = 3500) NOT INDIC. TITER Topher MichelOBSTETRIC PANEL + [id number] 00:00:00* Test Item Value Reference Range Interpretation [...] K/UL ABS NUCLEATED RBCS (test code = 52166) 0.00 K/UL BLOOD TYPE AND RH (test code = 3901) B POSITIVE ANTIBODY SCREEN (test code = 3902) NEGATIVE RUBELLA ANTIBODY SCREEN (test code = 4600) 177 IU/ML RUBELLA IgG INTERP (test code = 34314) REACTIVE HEPATITIS B SURF AG (test code = 2739) NON-REACTIVE RPR (test code = 13129) NON-REACTIVE RPR TITER (test code = 3500) NOT INDIC. TITER HIV 1/2 4TH GEN, RFLX CONF (test code = 3514) NON-REACTIVE Topher MichelHEPATITIS C [id number] 00:00:00* Test Item Value Reference Range Interpretation Comme nts HEPATITIS C ANTIBODY (test c ode = 4675) NON-REACTIVE Topher MichelPAP TEST, THINPREP, [id number] 00:00:00* Test Item Value Reference Range Interpretation Comme nts SOURCE: (test code = 8001) Cervical/Endocervical SLIDES: (test code = 8011) 2 LMP: (test code = 8021) 05/27/2023 SPECIMEN ADEQUACY: (test code = 73331) (NOTE) INTERPRETATION: (test code = 33753) NILM/NO EPITH. ABNORMALITY;SEE BELOW OTHER COMMENTS: (test code = 8081) (NOTE) RESTAURANT MANAGER: (test code = 8101) Jennifer Martell, CT(ASCP) QC TECHNOLOGIST: (test code = 8111) Johnnie Vergara,SCT(ASCP)IAC LOCATION: (test code = 75470) (NOTE) CPT: (test code = 8140) (NOTE) Topher MichelVARICELLA ZOSTER [id number] 00:00:00* Test Item Value Reference Range Interpretation Comme nts VARICELLA ZOSTER IgG (test c ode = 91061) 1182 INDEX Topher MichelDRUG ABUSE SCREEN 10 REFLEX [id number] 00:00:00* Test Item Value Reference Range Interpretation Comme nts AMPHETAMINES (test code = 3201) NEGATIVE BARBITURATES (test code = 3202) NEGATIVE BENZODIAZEPINES (test code = 3203) NEGATIVE CANNABINOIDS (test code = 3204) NEGATIVE COCAINE METABOLITE (test cod e = 3205) NEGATIVE OPIATES (test code = 3209) NEGATIVE OXYCODONE (test code = 98649) NEGATIVE PHENCYCLIDINE (test code = 3210) NEGATIVE METHADONE (test code = 3207) NEGATIVE BUPRENORPHINE (test code = 01022) NEGATIVE SOURCE (test code = 706869) URINE Topher MichelHCG, [id number] 00:00:00* Test Item Value Reference Range Interpretation Comme nts HCG, QUANTITATIVE (test code = 2506) 77123 MIU/ML Topher Aguillon [id number] 00:00:00* Test Item Value Reference Range Interpretation Comme nts RPR RESULT (test code = 3501) NON-REACTIVE RPR TITER (test code = 3500) NOT INDIC. TITER Topher MichelOBSTETRIC PANEL + [id number] 00:00:00* Test Item Value Reference Range Interpretation [...] K/UL ABS NUCLEATED RBCS (test code = 41975) 0.00 K/UL BLOOD TYPE AND RH (test code = 3901) B POSITIVE ANTIBODY SCREEN (test code = 3902) NEGATIVE RUBELLA ANTIBODY SCREEN (test code = 4600) 177 IU/ML RUBELLA IgG INTERP (test code = 87806) REACTIVE HEPATITIS B SURF AG (test code = 2739) NON-REACTIVE RPR (test code = 73780) NON-REACTIVE RPR TITER (test code = 3500) NOT INDIC. TITER HIV 1/2 4TH GEN, RFLX CONF (test code = 3514) NON-REACTIVE Topher MichelHEPATITIS C [id number] 00:00:00* Test Item Value Reference Range Interpretation Comme nts HEPATITIS C ANTIBODY (test c ode = 4675) NON-REACTIVE Topher MichelPAP TEST, THINPREP, [id number] 00:00:00* Test Item Value Reference Range Interpretation Comme nts SOURCE: (test code = 8001) Cervical/Endocervical SLIDES: (test code = 8011) 2 LMP: (test code = 8021) 05/27/2023 SPECIMEN ADEQUACY: (test code = 82492) (NOTE) INTERPRETATION: (test code = 56659) NILM/NO EPITH. ABNORMALITY;SEE BELOW OTHER COMMENTS: (test code = 8081) (NOTE) RESTAURANT MANAGER: (test code = 8101) Jennifer Martell, CT([facility]) QC TECHNOLOGIST: (test code = 8111) Johnnie Vergara,SCT([facility])IAC LOCATION: (test code = 58351) (NOTE) CPT: (test code = 8140) (NOTE) Topher MichelVARICELLA ZOSTER [id number] 00:00:00* Test Item Value Reference Range Interpretation Comme nts VARICELLA ZOSTER IgG (test c ode = 42907) 1182 INDEX Topher MichelDRUG ABUSE SCREEN 10 REFLEX [id number] 00:00:00* Test Item Value Reference Range Interpretation Comme nts AMPHETAMINES (test code = 3201) NEGATIVE BARBITURATES (test code = 3202) NEGATIVE BENZODIAZEPINES (test code = 3203) NEGATIVE CANNABINOIDS (test code = 3204) NEGATIVE COCAINE METABOLITE (test cod e = 3205) NEGATIVE OPIATES (test code = 3209) NEGATIVE OXYCODONE (test code = 73321) NEGATIVE PHENCYCLIDINE (test code = 3210) NEGATIVE METHADONE (test code = 3207) NEGATIVE BUPRENORPHINE (test code = 13139) NEGATIVE SOURCE (test code = 961748) URINE Topher MichelHCG, [id number] 00:00:00* Test Item Value Reference Range Interpretation Comme nts HCG, QUANTITATIVE (test code = 2506) 58655 MIU/ML Topher [id number] 00:00:00* Test Item Value Reference Range Interpretation Comme nts RPR RESULT (test code = 3501) NON-REACTIVE RPR TITER (test code = 3500) NOT INDIC. TITER Topher MichelHPV HIGH RISK WITH GENOTYPE, [id number] 15:53:01* Test Item Value Reference Range Interpretation Comme nts HPV HIGH RISK INTERP (test code = 43279) POSITIVE NEGATIVE A HPV 16 (test code = 86871) NEGATIVE HPV 18 (test code = 72723) NEGATIVE HPV, HR, OTHER GENOTYPES (test code = 05273) POSITIVE A Testing methodol ogy is real-time PCR utilizing hydrolysis probes with the Mia Amarilis 4800 system. The test individually detects genotypes 16 and 18, as well as the other 12 high risk types (31,33,35,39,45,51,52,56 ,58,59,66,68). The expected result is negative. A negative result does not rule out the presence of HPV not included in the genotype set, a low level of infection or specimen sampling error. UNLESS OTHERWISE INDICATED, ALL TESTING PERFORMED AT [facility] [address] [place] [address] PROFESSOR OF RELIGION: SUSAN YANEZ M.D. CLIA NUMBER [id number] [facility] [place]. [id number] CULTURE, [id number] 12:58:34SPECIMEN NUMBER: [id number] CULTURE, URINE SPECIMEN NUMBER: [id number] SPECIMEN COMMENT: URINE SOURCE: URINE REPORT STATUS: FINAL ISOLATE NUMBER 1: ORGANISM: 07/30/2023 >100,000 CFU/ML GRAM NEGATIVE BACILLI IDENTIFICATION: 07/31/2023 ESCHERICHIA COLI E. COLI AMOXICILLIN/CA SENSITIVE <=8/4AMPICILLIN RESISTANT >16CEFAZOLIN SENSITIVE <=2CEFTRIAXONE SENSITIVE <=1CIPROFLOXACIN SENSITIVE <=1LEVOFLOXACIN SENSITIVE <=2NITROFURANTOIN SENSITIVE <=32PIP/TAZOBAC SENSITIVE <=16TETRACYCLINE SENSITIVE <=4TOBRAMYCIN SENSITIVE <=4TRIMETH/SULFA SENSITIVE <=2/38NOTE: NUMBERS DISPLAYED REPRESENT MINIMUM INHIBITORY CONCENTRATION (ALMITA) WHICH IS EXPRESSED IN MCG/ML.CT/NG, NAAT, [id number] 12:21:07* Test Item Value Reference Range Interpretation Comme nts CHLAMYDIA, NAAT, THINPREP (test code = 66790) POSITIVE NEGATIVE A Testing is perfo rmed with the Mia Amarilis 6800/8800 systems usingreal-time Polymerase Chain Reaction (PCR) method. GONORRHEA, NAAT, THINPREP (test code = 79480) NEGATIVE NEGATIVE A negative resul t does not exclude low level infection, specimensampling error, or collection error. Testing is performed with the Mia Amarilis 6800/8800 systems usingreal-time Polymerase Chain Reaction (PCR) method. CULTURE, [id number] 00:00:00* Test Item Value Reference Range Interpretation Comme nts CULTURE, URINE (test code = 57821) SPECIMEN NUMBER: [id number] Topher Mccullough AND CHLAMYDIA AMPLIFIED, [id number] 00:00:00* Test Item Value Reference Range Interpretation Comme nts CHLAMYDIA, NAAT, THINPREP (t est code = 51249) POSITIVE GONORRHEA, NAAT, THINPREP (t est code = 14618) NEGATIVE Topher MichelHPV HIGH RISK WITH GENOTYPE, [id number] 00:00:00* Test Item Value Reference Range Interpretation Comme nts HPV HIGH RISK INTERP (test c ode = 58676) POSITIVE HPV 16 (test code = 43754) NEGATIVE HPV 18 (test code = 79447) NEGATIVE HPV, HR, OTHER GENOTYPES (te st code = 59488) POSITIVE Topher MichelCULTURE, [id number] 00:00:00* Test Item Value Reference Range Interpretation Comme nts CULTURE, URINE (test code = 56818) SPECIMEN NUMBER: [id number] Topher F AustinGC AND CHLAMYDIA AMPLIFIED, [id number] 00:00:00* Test Item Value Reference Range Interpretation Comme nts CHLAMYDIA, NAAT, THINPREP (t est code = 61535) POSITIVE GONORRHEA, NAAT, THINPREP (t est code = 85382) NEGATIVE Topher MichelHPV HIGH RISK WITH GENOTYPE, [id number] 00:00:00* Test Item Value Reference Range Interpretation Comme nts HPV HIGH RISK INTERP (test c ode = 36826) POSITIVE HPV 16 (test code = 89489) NEGATIVE HPV 18 (test code = 64638) NEGATIVE HPV, HR, OTHER GENOTYPES (te st code = 15129) POSITIVE Topher MichelCULTURE, [id number] 00:00:00* Test Item Value Reference Range Interpretation Comme nts CULTURE, URINE (test code = 08109) SPECIMEN NUMBER: [id number] Topher MichelGC AND CHLAMYDIA AMPLIFIED, [id number] 00:00:00* Test Item Value Reference Range Interpretation Comme nts CHLAMYDIA, NAAT, THINPREP (t est code = 85345) POSITIVE GONORRHEA, NAAT, THINPREP (t est code = 89046) NEGATIVE Topher MichelHPV HIGH RISK WITH GENOTYPE, [id number] 00:00:00* Test Item Value Reference Range Interpretation Comme nts HPV HIGH RISK INTERP (test c ode = 04106) POSITIVE HPV 16 (test code = 09569) NEGATIVE HPV 18 (test code = 71846) NEGATIVE HPV, HR, OTHER GENOTYPES (te st code = 27462) POSITIVE Topher MichelGC AND CHLAMYDIA AMPLIFIED, [id number] 00:00:00* Test Item Value Reference Range Interpretation Comme nts CHLAMYDIA, NAAT, THINPREP (t est code = 83654) POSITIVE GONORRHEA, NAAT, THINPREP (t est code = 97273) NEGATIVE Topher MichelCULTURE, [id number] 00:00:00* Test Item Value Reference Range Interpretation Comme nts CULTURE, URINE (test code = 43344) SPECIMEN NUMBER: [id number] Topher MichelHPV HIGH RISK WITH GENOTYPE, [id number] 00:00:00* Test Item Value Reference Range Interpretation Comme nts HPV HIGH RISK INTERP (test c ode = 08197) POSITIVE HPV 16 (test code = 92282) NEGATIVE HPV 18 (test code = 44764) NEGATIVE HPV, HR, OTHER GENOTYPES (te st code = 21728) POSITIVE Topher MichelCULTURE, [id number] 00:00:00* Test Item Value Reference Range Interpretation Comme nts CULTURE, URINE (test code = 08546) SPECIMEN NUMBER: [id number] Topher Aguillon AustinGC AND CHLAMYDIA AMPLIFIED, [id number] 00:00:00* Test Item Value Reference Range Interpretation Comme nts CHLAMYDIA, NAAT, THINPREP (t est code = 66608) POSITIVE GONORRHEA, NAAT, THINPREP (t est code = 89243) NEGATIVE Topher Aguillno AustinHPV HIGH RISK WITH GENOTYPE, [id number] 00:00:00* Test Item Value Reference Range Interpretation Comme nts HPV HIGH RISK INTERP (test c ode = 84702) POSITIVE HPV 16 (test code = 44559) NEGATIVE HPV 18 (test code = 05453) NEGATIVE HPV, HR, OTHER GENOTYPES (te st code = 12398) POSITIVE Topher Aguillon AustinGC AND CHLAMYDIA AMPLIFIED, [id number] 00:00:00* Test Item Value Reference Range Interpretation Comme nts CHLAMYDIA, NAAT, THINPREP (t est code = 59652) POSITIVE GONORRHEA, NAAT, THINPREP (t est code = 91504) NEGATIVE Topher MichelCULTURE, [id number] 00:00:00* Test Item Value Reference Range Interpretation Comme nts CULTURE, URINE (test code = 83563) SPECIMEN NUMBER: [id number] Topher Aguillon AustinHPV HIGH RISK WITH GENOTYPE, [id number] 00:00:00* Test Item Value Reference Range Interpretation Comme nts HPV HIGH RISK INTERP (test c ode = 63967) POSITIVE HPV 16 (test code = 07811) NEGATIVE HPV 18 (test code = 95248) NEGATIVE HPV, HR, OTHER GENOTYPES (te st code = 00431) POSITIVE Topher MichelCULTURE, [id number] 00:00:00* Test Item Value Reference Range Interpretation Comme nts CULTURE, URINE (test code = 06363) SPECIMEN NUMBER: [id number] Topher Aguillon AustinGC AND CHLAMYDIA AMPLIFIED, [id number] 00:00:00* Test Item Value Reference Range Interpretation Comme nts CHLAMYDIA, NAAT, THINPREP (t est code = 75066) POSITIVE GONORRHEA, NAAT, THINPREP (t est code = 97100) NEGATIVE Topher MichelHPV HIGH RISK WITH GENOTYPE, [id number] 00:00:00* Test Item Value Reference Range Interpretation Comme nts HPV HIGH RISK INTERP (test c ode = 31150) POSITIVE HPV 16 (test code = 40722) NEGATIVE HPV 18 (test code = 14800) NEGATIVE HPV, HR, OTHER GENOTYPES (te st code = 45137) POSITIVE Topher MichelCULTURE, [id number] 00:00:00* Test Item Value Reference Range Interpretation Comme nts CULTURE, URINE (test code = 54139) SPECIMEN NUMBER: [id number] Topher MichelGC AND CHLAMYDIA AMPLIFIED, [id number] 00:00:00* Test Item Value Reference Range Interpretation Comme nts CHLAMYDIA, NAAT, THINPREP (t est code = 92948) POSITIVE GONORRHEA, NAAT, THINPREP (t est code = 36147) NEGATIVE Topher MichelHPV HIGH RISK WITH GENOTYPE, [id number] 00:00:00* Test Item Value Reference Range Interpretation Comme nts HPV HIGH RISK INTERP (test c ode = 05030) POSITIVE HPV 16 (test code = 08084) NEGATIVE HPV 18 (test code = 98209) NEGATIVE HPV, HR, OTHER GENOTYPES (te st code = 00393) POSITIVE Topher MichelCULTURE, [id number] 00:00:00* Test Item Value Reference Range Interpretation Comme nts CULTURE, URINE (test code = 46187) SPECIMEN NUMBER: [id number] Topher Aguillon AustinGC AND CHLAMYDIA AMPLIFIED, [id number] 00:00:00* Test Item Value Reference Range Interpretation Comme nts CHLAMYDIA, NAAT, THINPREP (t est code = 96100) POSITIVE GONORRHEA, NAAT, THINPREP (t est code = 80160) NEGATIVE Topher Aguillon AustinHPV HIGH RISK WITH GENOTYPE, [id number] 00:00:00* Test Item Value Reference Range Interpretation Comme nts HPV HIGH RISK INTERP (test c ode = 95335) POSITIVE HPV 16 (test code = 45166) NEGATIVE HPV 18 (test code = 07816) NEGATIVE HPV, HR, OTHER GENOTYPES (te st code = 42736) POSITIVE Topher WellsLTURE, [id number] 00:00:00* Test Item Value Reference Range Interpretation Comme nts CULTURE, URINE (test code = 59145) SPECIMEN NUMBER: [id number] Topher Aguillon AustinGC AND CHLAMYDIA AMPLIFIED, [id number] 00:00:00* Test Item Value Reference Range Interpretation Comme nts CHLAMYDIA, NAAT, THINPREP (t est code = 38596) POSITIVE GONORRHEA, NAAT, THINPREP (t est code = 75305) NEGATIVE Topher MichelHPV HIGH RISK WITH GENOTYPE, [id number] 00:00:00* Test Item Value Reference Range Interpretation Comme nts HPV HIGH RISK INTERP (test c ode = 34574) POSITIVE HPV 16 (test code = 28585) NEGATIVE HPV 18 (test code = 53174) NEGATIVE HPV, HR, OTHER GENOTYPES (te st code = 64806) POSITIVE Topher MichelCULTURE, [id number] 00:00:00* Test Item Value Reference Range Interpretation Comme nts CULTURE, URINE (test code = 81477) SPECIMEN NUMBER: [id number] Topher MichelGC AND CHLAMYDIA AMPLIFIED, [id number] 00:00:00* Test Item Value Reference Range Interpretation Comme nts CHLAMYDIA, NAAT, THINPREP (t est code = 60610) POSITIVE GONORRHEA, NAAT, THINPREP (t est code = 93066) NEGATIVE Topher MichelHPV HIGH RISK WITH GENOTYPE, [id number] 00:00:00* Test Item Value Reference Range Interpretation Comme nts HPV HIGH RISK INTERP (test c ode = 92063) POSITIVE HPV 16 (test code = 22655) NEGATIVE HPV 18 (test code = 84735) NEGATIVE HPV, HR, OTHER GENOTYPES (te st code = 10673) POSITIVE Topher Aguillon AustinGC AND CHLAMYDIA AMPLIFIED, [id number] 00:00:00* Test Item Value Reference Range Interpretation Comme nts CHLAMYDIA, NAAT, THINPREP (t est code = 63626) POSITIVE GONORRHEA, NAAT, THINPREP (t est code = 97569) NEGATIVE Topher MichelCULTURE, [id number] 00:00:00* Test Item Value Reference Range Interpretation Comme nts CULTURE, URINE (test code = 58329) SPECIMEN NUMBER: [id number] Topher Aguillon AustinHPV HIGH RISK WITH GENOTYPE, [id number] 00:00:00* Test Item Value Reference Range Interpretation Comme nts HPV HIGH RISK INTERP (test c ode = 78285) POSITIVE HPV 16 (test code = 13988) NEGATIVE HPV 18 (test code = 37418) NEGATIVE HPV, HR, OTHER GENOTYPES (te st code = 61195) POSITIVE Topher Aguillon AustinVAGINAL PATHOGENS DNA [id number] 10:31:23* Test Item Value Reference Range Interpretation Comme nts ALTAF SPECIES (test code = ) NEGATIVE NEGATIVE G. VAGINALIS (test code = 95847) POSITIVE NEGATIVE A T. VAGINALIS (test code = 17312) NEGATIVE NEGATIVE Note: The Mechanology VPIII Microbial Identification Testis a DNA probe test intended for use in the detectionand identification of Altaf species, Gardnerellavaginalis and Trichomonas vaginalis nucleic acid. UNLESS OTHERWISE INDICATED, ALL TESTING PERFORMED AT [facility] [address] [place] [address] PROFESSOR OF RELIGION: SUSAN YANEZ M.D. CLIA NUMBER [id number] [facility] [place]. [id number] VAGINAL PATHOGENS DNA PANEL [ADDED]2023-07-30 00:00:00* Test Item Value Reference Range Interpretation Comme nts ALTAF SPECIES (test code = ) NEGATIVE G. VAGINALIS (test code = 52329) POSITIVE T. VAGINALIS (test code = 31239) NEGATIVE Topher Aguillon AustinVAGINAL PATHOGENS DNA PANEL [ADDED]2023-07-30 00:00:00* Test Item Value Reference Range Interpretation Comme nts ALTAF SPECIES (test code = 68126) NEGATIVE G. VAGINALIS (test code = 32139) POSITIVE T. VAGINALIS (test code = 04590) NEGATIVE Topher Aguillon AustinVAGINAL PATHOGENS DNA PANEL [ADDED]2023-07-30 00:00:00* Test Item Value Reference Range Interpretation Comme nts ALTAF SPECIES (test code = 30893) NEGATIVE G. VAGINALIS (test code = 24395) POSITIVE T. VAGINALIS (test code = 55015) NEGATIVE Topher Aguillon AustinVAGINAL PATHOGENS DNA PANEL [ADDED]2023-07-30 00:00:00* Test Item Value Reference Range Interpretation Comme nts ALTAF SPECIES (test code = 14762) NEGATIVE G. VAGINALIS (test code = 69558) POSITIVE T. VAGINALIS (test code = 42810) NEGATIVE Topher F AustinVAGINAL PATHOGENS DNA PANEL [ADDED]2023-07-30 00:00:00* Test Item Value Reference Range Interpretation Comme nts ALTAF SPECIES (test code = 47261) NEGATIVE G. VAGINALIS (test code = 50464) POSITIVE T. VAGINALIS (test code = 69942) NEGATIVE Topher F AustinVAGINAL PATHOGENS DNA PANEL [ADDED]2023-07-30 00:00:00* Test Item Value Reference Range Interpretation Comme nts ALTAF SPECIES (test code = 75051) NEGATIVE G. VAGINALIS (test code = 54485) POSITIVE T. VAGINALIS (test code = 32235) NEGATIVE Topher F AustinVAGINAL PATHOGENS DNA PANEL [ADDED]2023-07-30 00:00:00* Test Item Value Reference Range Interpretation Comme nts ALTAF SPECIES (test code = 68774) NEGATIVE G. VAGINALIS (test code = 15096) POSITIVE T. VAGINALIS (test code = 63587) NEGATIVE Topher F AustinVAGINAL PATHOGENS DNA PANEL [ADDED]2023-07-30 00:00:00* Test Item Value Reference Range Interpretation Comme nts ALTAF SPECIES (test code = 06796) NEGATIVE G. VAGINALIS (test code = 53656) POSITIVE T. VAGINALIS (test code = 06752) NEGATIVE Topher F AustinVAGINAL PATHOGENS DNA PANEL [ADDED]2023-07-30 00:00:00* Test Item Value Reference Range Interpretation Comme nts ALTAF SPECIES (test code = 77773) NEGATIVE G. VAGINALIS (test code = 27439) POSITIVE T. VAGINALIS (test code = 73123) NEGATIVE Topher F AustinVAGINAL PATHOGENS DNA PANEL [ADDED]2023-07-30 00:00:00* Test Item Value Reference Range Interpretation Comme nts ALTAF SPECIES (test code = 69070) NEGATIVE G. VAGINALIS (test code = 32864) POSITIVE T. VAGINALIS (test code = 19531) NEGATIVE Topher F AustinVAGINAL PATHOGENS DNA PANEL [ADDED]2023-07-30 00:00:00* Test Item Value Reference Range Interpretation Comme nts ALTAF SPECIES (test code = ) NEGATIVE G. VAGINALIS (test code = 67878) POSITIVE T. VAGINALIS (test code = 78598) NEGATIVE Topher MichelVAGINAL PATHOGENS DNA PANEL [ADDED]2023-07-30 00:00:00* Test Item Value Reference Range Interpretation Comme nts ALTAF SPECIES (test code = ) NEGATIVE G. VAGINALIS (test code = 03712) POSITIVE T. VAGINALIS (test code = 32657) NEGATIVE Topher Michel Notes Date/Time Note Provider Source Topher Hubbard [facility]2025-03-28 00:00:00 Topher Hubbard [facility]2025-02-14 00:00:00 Topher Hubbard [facility]2025-02-12 00:00:00 Topher Hubbard [facility]2025-01-17 16:24:39 Letter sent to patients [facility]. Called pt and notified. Leeann Newman RN 10/31/24 4:25 PM R PLANT INSPECTOR Leeann Newman [id number] 16:08:55 Letter of medical clearance. Email to [email or web address] R PLANT INSPECTOR Saurabh GeorgesToledo [id number] 00:00:00 Topher Hubbard [facility]2024-12-15 03:31:24 Pt given printed and verbal discharge instructions regarding abdominal pain early . Pt verbalized understanding of instructions, pt awake alert oriented, resp reg unlabored, skin w/d, color appropriate for race, moves all ext well,pt encouraged to follow up with pcp and/or OB. Advised to seek medical attention for new/prolonged/worsening of symptoms. PIV d'cd, dressing to site, catheter in tact. Awake, alert oriented, resp reg unlabored, skin w/d, pt leaving amb with steady gait, in no apparent distress. R PLANT INSPECTOR Anamika Kessler [facility] [id number] 01:58:17 Ultrasound at bedside R PLANT INSPECTOR Jamal Chappell [facility] HospitalYxvolm1666-39-37 00:07:02 Patient thinks she is 5 weeks . 08/12/24 -approx. Date LMP. [facility]2024-12-14 23:25:00 Patient arrives ambulatory to ED c/o lower left abdominal pain that started today. . No medications taken COB SAWYER. Last menstrual was around July. Patient is around 5 weeks . EL Krause [facility] HospitalQbgbqx7238-45-76 10:01:14 Patient returned call and was given results. Evelyn Yang [facility] HospitalVgrtlh7253-86-29 08:53:46 Attempted to contact patient with results/recommendations. Unable to leave voicemail. Patient has seen normal results on My Chart. Event monitor shows no significant arrhythmias. Written by Emery Andrade MD on 08/04/2024 10:15 PM CDT Seen by patient Roland Valero on 08/04/2024 10:37 PM Evelyn Yang [facility] HospitalRaffvl4927-81-33 08:33:55 Images from the original note were not included. Attempted to contact patient to discuss test results, no answer I left a voice message to call back. Emery Andrade MD P Cardiology Nurse Event monitor shows no significant arrhythmias. Denise Mir [facility]Mswwzi4290-27-31 09:28:45 Noted IM-CARDIOVASCULAR DISEASE [facility]2024-10-17 16:40:22 Pt came to office stating she no longer wants to wear her event monitor. She states she only wanted to wear it for 14 days. Notified pt that she can return it, but this could decrease information that we receive from this monitor. Pt verbalized understanding. Notified [employer] that pt has removed event monitor. Will forward to Dr. Andrade for review. Bobbi Zapata [facility] HospitalQdatsi8405-95-21 10:58:58 Patient notified of results. She verbalized understanding of results/recommendations via teach back. No further questions or concerns at this time. Evelyn Yang [facility] HospitalMbancj5640-91-48 10:34:39 Roland Valero is a 23 year old female Pt calling back to speak with nurse Please advise Elis DriverToledo HospitalYujewk4125-78-23 09:09:07 Images from the original note were not included. Attempted to contact patient with results/recommendations. LVM for patient to return call to [phone]. Emery Andrade MD P Cardiology Nurse Echo with in acceptable limits. Preserved LVEF. No significant valve diease noted Awaiting monitor results. T [facility] HospitalTsvhhp6284-44-72 16:00:00 [employer] 30-day event monitor applied to patient. Wear and care explained. Patient verbalized understanding. Patient given instruction on how to return monitor in 2 week+ to [employer]. T [facility] HospitalZggdyh2815-35-57 15:00:00 Echo with in acceptable limits. Preserved LVEF. No significant valve diease noted Awaiting monitor results. IM-CARDIOVASCULAR DISEASE STAFFToledo HospitalJgxrkn1064-43-65 22:27:03 Pt given printed and verbal discharge instructions regarding palpitations and arrhythmias Pt verbalized understanding of instructions, pt awake alert oriented, resp reg unlabored, skin w/d, color appropriate for race, moves all ext well,pt encouraged to follow up with pcp Advised to seek medical attention for new/prolonged/worsening of symptoms, No adverse reaction to meds given in ER noted upon discharge Awake, alert oriented, resp reg unlabored, skin w/d, pt leaving amb with steady gait, in no apparent distress, Marc Albright [facility] HospitalCqigkm4773-36-10 19:05:31 Pt arrived ambulatory without assist. Pt c/o heart palpitations that started today. Hx: Anxiety Preeti Stephens [place] [id number] 00:00:00 [facility]2024-06-27 00:00:00 [facility]2024-06-26 00:00:00 [facility]2024-05-16 00:00:00 [facility]2024-05-06 00:00:00 [facility]2024-04-25 00:00:00 [facility]
[2025-02-02] MEDS ORDERED: DIPHENHYDRAMINE 50 MG/ML VIAL ONE (16:23)
[2025-02-02] MEDS ORDERED: ACETAMINOPHEN 500 MG TAB ONE (16:23)
[2025-02-02] MEDS ORDERED: NA CHLORIDE 0.9% 1,000 ML ONE (16:24)
[2025-02-02] MEDS ORDERED: METOCLOPRAMIDE 10 MG/2mL INJ ONE (16:24)
--- NOTE | 2025-02-02 17:01 | EDPHYS ---
Physician Documentation [facility] Name: Roland Blake Age: 24 yrs Sex: Female : 2000 Arrival Date: 02/02/2025 Time: 15:50 Bed 24 Private MD: ED Physician Nas Haider HPI: 02/02 16:56 This 24 yrs old Female presents to ER via Ambulatory with complaints of rt Headache. 16:56 Patient reports to the ED with a bitemporal headache, intermittently for the past few rt days. Patient is 23 weeks , states that she has intermittently had these headaches during the but they have been worsening over the past couple days. Denies any inciting event. Denies any vision difficulty, nausea, vomiting, other acute complaints, symptoms are moderate severity, no other aggravating elevating factors.. [employer]: 16:07 Verified jl7 Historical: - Allergies: 16:07 No Known Allergies; jl7 - PMHx: 16:07 Anxiety; depressive disorder; Herpes simplex; self harm; jl7 - Immunization history:: Adult Immunizations unknown. - Infectious Disease History:: Denies. - Social history:: Smoking status: Patient denies any tobacco usage or history of. ROS: 16:56 Constitutional: Negative for fever, chills, and weight loss, Cardiovascular: Negative rt for chest pain, palpitations, and edema, Respiratory: Negative for shortness of breath, cough, wheezing, and pleuritic chest pain, Abdomen/GI: Negative for abdominal pain, nausea, vomiting, diarrhea, and constipation, MS/Extremity: Negative for injury and deformity, Skin: Negative for injury, rash, and discoloration, 16:56 Neuro: Positive for headache, Negative for loss of consciousness, Exam: 16:56 Constitutional: This is a well developed, well nourished patient who is awake, alert, rt and in no acute distress. Head/Face: Normocephalic, atraumatic. Chest/axilla: Normal chest wall appearance and motion. Nontender with no deformity. No lesions are appreciated. Cardiovascular: Regular rate and rhythm with a normal S1 and S2. No gallops, murmurs, or rubs. Normal PMI, no JVD. No pulse deficits. Respiratory: Lungs have equal breath sounds bilaterally, clear to auscultation and percussion. No rales, rhonchi or wheezes noted. No increased work of breathing, no retractions or nasal flaring. Abdomen/GI: Soft, non-tender, with normal bowel sounds. No distension or tympany. No guarding or rebound. No evidence of tenderness throughout. Skin: Warm, dry with normal turgor. Normal color with no rashes, no lesions, and no evidence of cellulitis. MS/ Extremity: Pulses equal, no cyanosis. Neurovascular intact. Full, normal range of motion. Neuro: Awake and alert, GCS 15, oriented to person, place, time, and situation. Cranial nerves II-XII grossly intact. Motor strength 5/5 in all extremities. Sensory grossly intact. Cerebellar exam normal. Normal gait. 16:56 Neck: Full range of motion, no meningismus, Vital Signs: 16:05 BP 123 / 60; Pulse 76; Resp 17; Temp 97; Pulse Ox 100% ; Weight 58.97 kg; Height 5 ft. jl7 6 in. ; Pain 5/10; 16:05 Body Mass Index 20.98 (58.97 kg, 167.64 cm) jl7 16:05 Pain Scale: Adult jl7 MDM: 16:09 Medical Screening Exam initiated rt 17:01 Differential diagnosis: Migraine, tension headache. Data reviewed: vital signs, nurses rt notes. I considered the following discharge prescriptions or medication management in the emergency department Medications were administered in the Emergency Department. See MAR. Test considered but Not performed: Other Details Low suspicion for meningitis, encephalitis clinically, lumbar puncture is not indicated, low suspicion for intracranial hemorrhage, will spare patient radiation dose as she is , do not believe that CT scan is indicated.. Counseling: I had a detailed discussion with the patient and/or guardian regarding the historical points, exam findings, and any diagnostic results supporting the discharge/admit diagnosis, the need for outpatient follow up, to return to the emergency department if symptoms worsen or persist or if there are any questions or concerns that arise at home. Response to treatment: the patient's symptoms have markedly improved after treatment. Administered Medications: 16:38 Drug: NS 0.9% IV 1000 ml IV at 1 bolus Per protocol; to be given as a bolus over 60 jb4 minutes Route: IV; Rate: 1 bolus; Site: right forearm; 17:47 Follow up: Response: No adverse reaction; IV Status: Completed infusion; IV Intake: jb4 1000ml 16:38 Drug: Acetaminophen PO 1000 mg PO once Route: PO; jb4 17:47 Follow up: Response: No adverse reaction; Marked relief of symptoms jb4 16:39 Drug: metoCLOPramide IVP 10 mg IVP once; over 1 to 2 minutes Route: IVP; Site: right jb4 forearm; 17:48 Follow up: Response: No adverse reaction; Marked relief of symptoms jb4 16:39 Drug: diphenhydrAMINE IVP 25 mg IVP once Route: IVP; Site: right forearm; jb4 17:47 Follow up: Response: No adverse reaction; Marked relief of symptoms jb4 Disposition Summary: 02/02/25 17:01 Discharge Ordered Notes: Location: Home rt Problem: new rt Symptoms: have improved rt Condition: Stable rt Diagnosis - Headache rt Followup: rt - With: Private Physician - When: 2 - 3 days - Reason: Discharge Instructions: - Discharge Summary Sheet rt - General Headache Without Cause rt Forms: - Medication Reconciliation Form rt - Antibiotic Education rt - Prescription Opioid Use rt - Patient Portal Instructions rt - Leadership Thank You Letter rt Prescriptions: - Reglan 10 mg Oral tablet - take 1 tablet ORAL route every 6 hours as needed; 12 tablet; Refills: 0, rt Product Selection Permitted Signatures: Edward Andre RN RN jb4 Ainsley Mathew RN RN jl7 Nas Haider MD MD rt
--- NOTE | 2025-02-02 17:01 | ER ---
Nurse's Notes [facility] Name: Roland Blake Age: 24 yrs Sex: Female : 2000 Arrival Date: 02/02/2025 Time: 15:50 Bed 24 Private MD: Diagnosis: Headache Presentation: 02/02 16:05 Chief complaint: Patient states: Head x 3 days, denies N/V/D, no fever, reports hx of jl7 anxiety, 23 weeks . Coronavirus screen: At this time, the client does not indicate any symptoms associated with coronavirus-19. Ebola Screen: No symptoms or risks identified at this time. Initial Sepsis Screen: Does the patient meet any 2 criteria? No. Patient's initial sepsis screen is negative. Does the patient have a suspected source of infection? No. Patient's initial sepsis screen is negative. Risk Assessment: Do you want to hurt yourself or someone else? Patient reports no desire to harm self or others. Onset of symptoms is unknown. 16:05 Method Of Arrival: Ambulatory jl7 16:05 Acuity: REBECCA 3 jl7 Triage Assessment: 16:07 Headache History: Denies prior headaches. General: Appears in no apparent distress. jl7 uncomfortable, Behavior is calm, cooperative, appropriate for age. Pain: Complains of pain in [place] Pain currently is 5 out of 10 on a pain scale. Pain began 2-3 days ago. Also complains of no other associated symptoms. Neuro: Level of Consciousness is awake, alert, obeys commands, Oriented to person, place, time, situation. BEFORE [employer]: 16:07 Verified jl7 Historical: - Allergies: 16:07 No Known Allergies; jl7 - PMHx: 16:07 Anxiety; depressive disorder; Herpes simplex; self harm; jl7 - Immunization history:: Adult Immunizations unknown. - Infectious Disease History:: Denies. - Social history:: Smoking status: Patient denies any tobacco usage or history of. Screenin:[facility] ED Fall Risk Assessment (Adult) History of falling in the last 3 months, jb4 including since admission No falls in past 3 months (0 pts) Confusion or Disorientation No (0 pts) Intoxicated or Sedated No (0 pts) Impaired Gait No (0 pts) Mobility Assist Device Used No (0 pt) Altered Elimination No (0 pt) Score/Fall Risk Level 0 - 2 = Low Risk Oriented to surroundings, Maintained a safe environment. Abuse screen: Denies threats or abuse. Nutritional screening: No deficits noted. Tuberculosis screening: No symptoms or risk factors identified. Assessment: 17:44 Reassessment: Patient appears in no apparent distress at this time. Patient and/or jb4 family updated on plan of care and expected duration. Pain level reassessed. Patient is alert, oriented x 3, equal unlabored respirations, skin warm/dry/pink. d/c pending completion of IV fluids Patient states feeling better. Vital Signs: 16:05 BP 123 / 60; Pulse 76; Resp 17; Temp 97; Pulse Ox 100% ; Weight 58.97 kg; Height 5 ft. jl7 6 in. ; Pain 5/10; 16:05 Body Mass Index 20.98 (58.97 kg, 167.64 cm) jl7 16:05 Pain Scale: Adult [facility] ED Course: 15:55 Patient arrived in ED. gl 15:59 Nas Haider MD is Attending Physician. rt 16:05 Ainsley Mathew RN is Primary Nurse. jl7 16:07 Triage completed. jl7 16:07 Arm band placed on right wrist. jl7 17:44 Patient has correct armband on for positive identification. Bed in low position. Call 4 light in reach. Side rails up X 1. Provided Education on: discharge instructions.. 17:44 No provider procedures requiring assistance completed. IV discontinued, intact, jb4 bleeding controlled, No redness/swelling at site. Pressure dressing applied. Administered Medications: 16:38 Drug: NS 0.9% IV 1000 ml IV at 1 bolus Per protocol; to be given as a bolus over 60 jb4 minutes Route: IV; Rate: 1 bolus; Site: right forearm; 17:47 Follow up: Response: No adverse reaction; IV Status: Completed infusion; IV Intake: jb4 1000ml 16:38 Drug: Acetaminophen PO 1000 mg PO once Route: PO; jb4 17:47 Follow up: Response: No adverse reaction; Marked relief of symptoms jb4 16:39 Drug: metoCLOPramide IVP 10 mg IVP once; over 1 to 2 minutes Route: IVP; Site: right jb4 forearm; 17:48 Follow up: Response: No adverse reaction; Marked relief of symptoms jb4 16:39 Drug: diphenhydrAMINE IVP 25 mg IVP once Route: IVP; Site: right forearm; jb4 17:47 Follow up: Response: No adverse reaction; Marked relief of symptoms jb4 Medication: 17:44 VIS not applicable for this client. jb4 Intake: 17:47 IV: 1000ml; Total: 1000ml. jb4 Outcome: 17:01 Discharge ordered by . rt 17:44 Discharged to home ambulatory, jb4 17:44 Condition: stable 17:44 Discharge instructions given to patient, Instructed on discharge instructions, follow up and referral plans. medication usage, Demonstrated understanding of instructions, follow-up care, medications, Prescriptions given X 1, 17:48 Patient left the ED. jb4 Signatures: Edward Andre RN RN jb4 Ainsley Mathew RN RN jl7 Nas Haider MD MD rt Roma Leigh, Reg Reg gl
[2025-02-02 18:36] VITALS: BP 123/60; TEMP 97; O2SAT 100
== END 2025-02-02 17:48 | disposition home or self-care (01) ==
LOC: ER 15:50
DX: O26.892 Other specified pregnancy related conditions, second trimester (principal); R51.9 Headache, unspecified; Z3A.23 23 weeks gestation of pregnancy
CPT/HCPCS: 96361; 96375; 96374; 99284; J2765; J1200; J7030

== ENCOUNTER 2025-06-11 14:05 | Emergency (ER) | payer OTHER ==
--- OUTSIDE RECORDS SUMMARY | 2025-06-11 14:36 | XMS REPORT | Continuity of Care Document ---
Author Name Unknown Address [address] [facility] [address] [place] [address] [facility] [place] Address [address] [facility] [place] [address] Care Team Providers Care Cook Night Name Role Phone PCP, PATIENT DOES NOT HAVE A Primary Care Physic laxmi Unavailable LENNY HER Attending Clinician Unavailable LENNY HER Attending Clinician Unavailable Cleo Butler MD Attending Clinician [phone] Tejas Schaefer MD Attending Clinician [phone] JERI SANTANA Attending Clinician Unav ailable Janki Zurita Attending Clinician + JANKI ARCE Attending Clinician Unavail able GODFREY ISAAC Attending Clinician Unav ailable GODFREY ISAAC Attending Clinician Unav ailable PADMA SHAFER Attending Clinician Unavailable PADMA SHAFER Attending Clinician Unavailable PADMA SHAFER Attending Clinician Unavailable BENJAMIN ALVARADO Attending Clinician Unavailable AZUCENA ELLINGTON Attending Clinician Unavailable AZUCENA ELLINGTON Attending Clinician Unavailable Sharri Pena CNM Attending Clinician [phone] SHARRI PENA Attending Clinician Unavaila sophy Ultrasound, Ang-Mfm Attending Clinician Unavaila ble Shafer MD, Padma Attending Clinician [phone] LEVI SALDIVAR Attending Clinician Unavailable LEVI SALDIVAR Attending Clinician Unavailable Levi Nichole Attending Clinician [phone] SohailLenny paez DO Attending Clinician [phone] Doctor Unassigned, [place] Attending Clinician U guerline Isaac MD, Godfrey Hopkins Attending Clinician + NICHOLE HANSON Attending Clinician Unavailable NICHOLE HANSON Attending Clinician Unavailable Nichole Willard Attending Clinician [phone] Shorty RANGEL, Emery GillespieHTor Attending Clinician + [phone] EMERY ANDRADEHTor Attending Clinician UnavailMAHESH León Attending Clinician Unavailable MAHESH HAGAN Attending Clinician Unavailable Mahesh Hagan MD Attending Clinician [phone] Irvin Encarnacion Attending Clinician + [phone] IRVIN DEE Attending Clinician UnavailLENNY Purcell Admitting Clinician Unavailable NICHOLE HANSON Admitting Clinician Unavailable Payers Payer Name Policy Type Policy Number Effective Date Expirati on Date Source FittingRoom FFS CI [id number] [facility] [id number] 2024 00:00:00 [facility] [id number] 00:00:00 Problems Condition Name Condition Details Condition Category Status Onset Date Resolution Date Last Treatment Date Treating Clinician Comments Source (spontaneo us vaginal delivery) (spontaneo us vaginal delivery) Disease Active 05-26 00:00: 00 [facility] Single live Single live Disease Active 05-26 00:00: 00 [facility] Anemia, Anemia, Disease Active 05-26 00:00: 00 [facility] Obstetrica l laceration no repair Obstetrica l laceration no repair Disease Active 05-26 00:00: 00 [facility] 39 weeks gestation of 39 weeks gestation of Disease Active 8-10 00:00: 00 [facility] Anemia of mother in , antepartum Anemia of mother in , antepartum Disease Active 7-22 00:00: 00 [facility] Supervisio n of high-risk Supervisio n of high-risk Disease Active 2023-10 2-10 00:00: 00 [facility] History of miscarriag e History of miscarriag e Disease Active 2023-10 2-10 00:00: 00 [facility] with history of with history of Disease Active 2023-10 2-10 00:00: 00 [facility] Nausea and vomiting in Nausea and vomiting in Disease Active 2023-10 2-10 00:00: 00 [facility] No known active problems No known active problems Disease [facility] Encounter for induction of labor Encounter for induction of labor Disease Resolve d 8-10 00:00: 00 2025-05-24 00:00:00 2025-05-25 03:07:47 [facility] History of anxiety History of anxiety Disease Resolve d 3-31 00:00: 00 2025-03-19 00:00:00 2025-03-19 07:03:58 [facility] Allergies, Adverse Reactions, Alerts Allergy Name Allergy Type Status Severity Reaction(s) Onset Date Inactive Date Treating Clinician Comments Source [place] - Intraven ous Propensi ty to adverse reaction to drug Active 6-17 00:00: 00 [facility]her [facility] NO KNOWN ALLERGIE S Drug Class Active [facility] Social History Social Habit Start Date Stop Date Quantity Comments Source ASSERTION 2024-09-07 00:00:00 [facility] Exposure to SARS-CoV-2 (event) Not sure [facility] Alcoholic beverage intake 2025-05-24 00:00:00 2025-05-24 00:00:00 Ex-drinker (finding) [facility] History of Social function 2025-04-01 00:00:00 2025-04-01 00:00:00 [facility] Tobacco use and exposure 2024-07-02 00:00:00 2024-07-02 00:00:00 Smokeless tobacco non-user [facility] Sex assigned at 2000 00:00:00 2000 00:00:00 [facility] Smoking Status Start Date Stop Date Source Tobacco smoking consumption unknown [facility] Never smoked tobacco [facility] Medications Ordered Medication Name Filled Medication Name Start Date Stop Date Current Medication? Ordering Clinician Indication Dosage Frequency Signature (SIG) Comments Components Source SERTraline (ZOLOFT) tablet 50 mg 05-26 05:00: 00 05-26 21:55 :32 No 50mg 50 mg, Oral, QHS, First dose (after last modificati on) on Sun05/26/25 at 0000, Until Discontinu ed, Routine [facility] QUEtiapine (SEROQUEL) tablet 25 mg QUEtiapine (SEROQUEL) tablet 25 mg 05-26 04:00: 00 05-26 21:55 :32 Yes 25mg 25 mg, Oral, QHS, First dose (after last modificati on) on Sun05/25/25 at 2300, Until Discontinu ed, Routine [facility] vitamin w/FA tablet vitamin w/FA tablet 05-26 00:00: 00 Yes [id number] 1{tbl} Take 1 tablet by mouth in the morning. [facility] docusate 100 mg capsule docusate 100 mg capsule 05-26 00:00: 00 Yes [id number] 200mg Take 2 capsules by mouth once daily as needed for Constipati on. [facility] ferrous sulfate 325 mg (65 mg iron) tablet ferrous sulfate 325 mg (65 mg iron) tablet 05-26 00:00: 00 Yes [id number] 325mg Take 1 tablet by mouth in the morning. [facility] ibuprofen 800 mg tablet ibuprofen 800 mg tablet 05-26 00:00: 00 Yes [id number] 800mg Take 1 tablet by mouth every 8 hours as needed (pain). Take with food or milk. [facility] ibup[facility]fen (IBU) tablet 600 mg ibuprofen (IBU) tablet 600 mg 05-25 22:00: 00 05-26 21:55 :32 Yes 600mg 600 mg, Oral, TID, First dose on Sun05/25/25 at 1700, Until Discontinu ed, Routine [facility] acetaminoph en (TYLENOL) tablet 650 mg acetaminoph en (TYLENOL) tablet 650 mg 05-25 21:00: 00 05-26 21:55 :32 Yes 650mg 650 mg, Oral, TID, First dose on Sun05/25/25 at 1600, Until Discontinu ed, Routine [facility] rho(D) immune globulin (RHOPHYLAC) injection 300 mcg 05-25 20:48: 06 05-26 21:55 :32 [facility] diphenhydrA MINE (BENADRYL) tablet 25 mg 05-25 20:48: 02 05-26 21:55 :32 No 25mg [facility] ondansetron (ZOFRAN (PF)) injection 4 mg 05-25 20:48: 02 05-26 21:55 :32 No 4mg [facility] simethicone (GAS RELIEF (SIMETHICON E)) chewable tablet 160 mg 05-25 20:48: 02 05-26 21:55 :32 No 160mg [facility] docusate (COLACE) capsule 200 mg docusate (COLACE) capsule 200 mg 05-25 20:48: 02 05-26 21:55 :32 Yes 200mg 200 mg, Oral, QDAILYPRN, Starting on Sun05/25/25 at 1548, Until Sun05/26/25 at 1655, Routine, Constipati on [facility] magnesium hydroxide (MILK OF MAGNESIA) 400 mg/5 mL suspension 30 mL 05-25 20:48: 02 05-26 21:55 :32 No 30mL [facility] benzocaine- menthol (DERMOPLAST ) 20-0.5 % topical spray benzocaine- menthol (DERMOPLAST ) 20-0.5 % topical spray 05-25 20:48: 02 05-26 21:55 :32 Yes Topical, PRN, Starting on Sun05/25/25 at 1548, Until Sun05/26/25 at 1655, Routine, Perineum discomfort [facility] lactated ringers IV infusion 500 mL 05-25 12:15: 00 05-25 11:47 :00 No 500mL at 999 mL/hr, 500 mL, IV Infusion, ONCE, 1 dose, On Sun05/25/25 at 0715, Routine [facility] ropivacaine 0.2 % (NAROPIN (PF)) epidural infusion 05-25 11:27: 00 05-25 19:03 :45 No Epidural, CONTINUOUS PRN, Starting on Sun05/25/25 at 0627, Until Sun05/25/25 at 1403, Routine, Intra-op [facility] lidocaine-e pinephrine (XYLOCAINE W/EPINEPHRI NE) 1.5 %-1:200,000 injection 05-25 11:27: 00 05-25 19:03 :45 No Epidural, ONCE INTRA PROCEDURE, Starting on Sun05/25/25 at 0627, Until Sun05/25/25 at 1403, Routine, Intra-op [facility] sodium citrate-cit cecy acid (BICITRA) 500-334 mg/5 mL solution 30 mL sodium citrate-cit cecy acid (BICITRA) 500-334 mg/5 mL solution 30 mL 05-25 01:16: 09 05-25 11:13 :00 Yes 30mL 30 mL, Oral, PRE-PROCED URE ONCE, 1 dose, Starting on Sun05/24/25 at 2016, Until Sun05/25/25 at 0613, Routine, Surgery/Pr ocedure [facility] lactated ringers IV infusion 250 mL 05-25 01:16: 09 2025- 08-11 20:48 :05 No 250mL at 999 mL/hr, 250 mL, IV Infusion, PRN - SEE INSTRUCTIO NS, Starting on Sun05/24/25 at 2015, Until Sun05/25/25 at 1548, Routine [facility] D5W-LR IV infusion 1,000 mL 05-25 01:16: 09 05-25 20:48 :05 No 1000mL at 1-75 mL/hr, IV Infusion, TITRATE, Starting on Sun05/24/25 at 2015, Until Sun05/25/25 at 1548, Routine [facility] Iron Fum & P-FA-Vit B & C No.9 (INTEGRA PLUS) 125 mg iron- 1 mg Cap 05-05 00:00: 00 05-26 00:00 :00 No [id number] 1{tbl} Take 1 tablet by mouth in the morning. [facility] acyclovir 400 mg tablet 05-04 00:00: 00 Yes [id number] 400mg Take 1 tablet by mouth in the morning and 1 tablet at noon and 1 tablet in the evening. [facility] QUEtiapine 25 mg tablet 04-15 00:00: 00 Yes TAKE 1 TABLET BY MOUTH NIGHTLY [facility] hydrOXYzine 10 mg tablet 16 00:00: 00 04-07 04:59 :00 Yes [id number] 10mg Take 1 tablet by mouth 3 times daily as needed for Itching or Anxiety for up to 7 days. [facility] hydroxyzine HCl 25 mg tablet 10 00:00: 00 Yes 12mg [facility] sertraline 25 mg tablet 03-16 00:00: 00 Yes 1mg [facility] Prozac 10 mg capsule 03-10 00:00: 00 Yes 1mg [facility] dextrometho rphan-guaif enesin 20 mg-400 mg tablet 03-10 00:00: 00 Yes 1mg [facility] clotrimazol e 1 % vaginal cream -15 00:00: 00 Yes % [facility] azithromyci n 500 mg tablet 15 00:00: 00 Yes mg [facility] SERTraline (ZOLOFT) 50 mg tablet 02-17 00:00: 00 Yes [id number] 50mg Take 1 tablet by mouth in the morning. [facility] cefTRIAXone (ROCEPHIN) 1,000 mg in water for injection, sterile 10 mL IV Push 02-06 22:45: 00 02-06 22:55 :00 No 1000mg 1,000 mg, Intravenou s, ONCE, 1 dose, On Sun02/06/25 at 1745, 10 mL, Reason for Anti-Infec tive: Empiric Therapy for Suspected Infection, Empiric Therapy Site: Urine, Duration of therapy: Once (ED) [facility] KCL (KLOR-CON M20) tablet 40 mEq 02-06 22:45: 02-06 22:55 :00 No 40meq 40 mEq, Oral, ONCE, 1 dose, On Sun02/06/25 at 1745, ALEJANDRO [facility] cefdinir 300 mg capsule 02-06 00:00: 00 02-14 04:59 :00 No [id number] 300mg Take 1 capsule by mouth in the morning and 1 capsule in the evening. Do all this for 7 days. [facility] cetirizine 10 mg capsule 02-04 00:00: 00 Yes 1mg [facility] Cipro HC 0.2 %-1 % ear drops,suspe nsion 01-19 00:00: 00 Yes 3% [facility] montelukast 10 mg tablet 01-19 00:00: 00 Yes 1mg [facility] fluticasone propionate 50 mcg/actuati on nasal spray,suspe nsion 01-19 00:00: 00 Yes 1mcg/ac tuation [facility] SERTraline (ZOLOFT) 50 mg tablet 3-31 00:00: 00 02-17 00:00 :00 No [id number] 50mg Take 1 tablet by mouth in the morning. [facility] cephalexin 500 mg capsule 3-28 00:00: 00 Yes 1mg [facility] amoxicillin 875 mg-potassiu nan clavulanate 125 mg tablet -14 00:00: 00 Yes 1mg [facility] Flonase Allergy Relief 50 mcg/actuati on nasal spray,suspe nsion 2-12 00:00: 00 Yes 12mcg/a ctuatio n [facility] cetirizine 10 mg capsule 2-12 00:00: 00 Yes 1mg [facility] Robitussin Cough-Chest Congestion DM 5 mg-50 mg/5 mL oral liquid -12 00:00: 00 Yes 10mg/5 mL [facility] albuterol sulfate HFA 90 mcg/actuati on aerosol inhaler 2023-10-20 00:00: 00 Yes 12mcg/a ctuatio n [facility] cetirizine 10 mg capsule 2023-10-20 00:00: 00 Yes 1mg [facility] sodium chloride (NS) injection 5 mL 2023-10-15 05:33: 25 Yes [id number] 5mL 5 mL, Intravenou s, PRN, Starting on 09/27/24 at 2333, Until Discontinu ed, Routine, IV line flushing [facility] proMETHazin e 25 mg tablet 2023-10- 00:00: 00 05-26 00:00 :00 No [id number] 25mg Take 1 tablet by mouth every 6 (six) hours as needed for Nausea and Vomiting (N/V). [facility] PNV 67-iron ps-folate no.1-dha (VITAFOL ULTRA) 29 mg iron- 1 mg-200 mg Cap 2023-10 2-10 00:00: 00 05-26 00:00 :00 No [id number] 1{each} Take 1 Each by mouth in the morning. [facility] prednisone 10 mg tablet -16 00:00: 00 Yes 1mg [facility] Bromfed DM 2 mg-30 mg-10 mg/5 mL oral syrup 2024-0 5-16 00:00: 00 Yes 10mg/5 mL [facility] fluconazole 150 mg tablet 5-06 00:00: 00 Yes mg [facility] metronidazo le 500 mg tablet 5- 00:00: 00 Yes 1mg [facility] hydroxyzine HCl 25 mg tablet -25 00:00: 00 Yes 1mg [facility] triamcinolo ne acetonide 0.1 % topical ointment - 00:00: 00 Yes 1% [facility] mupirocin 2 % topical ointment 02-06 00:00: 00 Yes 1% [facility] METRONIDAZO L 02-03 00:00: 00 Yes [facility] metronidazo le 500 mg tablet 02-02 00:00: 00 Yes 1mg [facility] fluconazole 150 mg tablet - 00:00: 00 Yes 1mg [...] :00 No 100 [facility] VALACYCLOVI R 2 00:00: 00 Yes Topher Michel TAKE 1 TABLET TWICE DAILY. 11-21 00:00: 00 02-26 00:00 :00 No 500 [facility] TAKE 1 TABLET BY MOUTH TWICE A DAY 11-13 00:00: 00 02-26 00:00 :00 No 500 [facility] TAKE DIRECTED. 10-24 00:00: 00 02-26 00:00 :00 No Topher Pal Michel USE DIRECTED 10-23 00:00: 00 02-26 00:00 :00 No 68 [facility] BROM/PSE/DM SYP 2022-10 00:00: 00 Yes [facility] TAKE 5 ML EVERY 6 HOURS NEEDED. 2022-10 00:00: 00 02-26 00:00 :00 No [id number] [facility] TAKE 1 TABLET DAILY. 2022-10 [...] TABLET BY MOUTH TWICE A DAY 2022-10 0-17 00:00: 00 02-26 00:00 :00 No 500 [...] [facility] TAKE 1 TAB PO DAILY 8-09 00:00: 00 02-26 00:00 :00 No 5 [facility] 10 ML Q 4 TO 6 HOURS PRN COUGH FOR 5 DAYS 6-12 00:00: 00 02-26 00:00 :00 No [id number] [facility] TAKE 1 TAB PO DAILY 6-05 00:00: 00 02-26 00:00 :00 No 5 [facility] TAKE 1 TABLET DAILY. 6-05 00:00: 00 02-26 00:00 :00 No 20 [facility] TAKE 1 TABLET BY MOUTH ONCE DAILY 5- 00:00: 00 Yes [facility] TAKE 1 TABLET DAILY. 5- 00:00: 00 02-26 00:00 :00 No 20 Topher Pal Anand TAKE 1 TAB PO DAILY 5-10 00:00: 00 02-26 00:00 :00 No 5 [facility] TAKE 1 TABLET TWICE DAILY WITH FOOD. 5-04 00:00: 00 02-26 00:00 :00 No [id number] [facility] TAKE 1 TAB PO DAILY 4- 00:00: 00 02-26 00:00 :00 No 5 [facility] TAKE 1 TABLET DAILY. 4- 00:00: 00 02-26 00:00 :00 No 20 [facility] TAKE 1 TABLET DAILY. -09 00:00: 00 02-26 00:00 :00 No 20 [facility] TAKE 1 TAB PO DAILY 3- 00:00: 00 02-26 00:00 :00 No 5 [facility] TAKE 1 TABLET BY MOUTH ONCE DAILY - 00:00: 00 Yes [facility] TAKE 1 TAB PO DAILY 2-20 00:00: 00 02-26 00:00 :00 No 5 [facility] TAKE 1 TAB PO DAILY - 00:00: 00 02-26 00:00 :00 No 5 [facility] TAKE 1 TABLET DAILY. - 00:00: 00 02-26 00:00 :00 No 20 [facility] TAKE 1 TABLET BY MOUTH ONCE DAILY - 00:00: 00 Yes [facility] TAKE 1 TABLET BY MOUTH ONCE DAILY - 00:00: 00 Yes [facility] TAKE 1 TAB PO DAILY 1- 00:00: 00 02-26 00:00 :00 No 5 [facility] TAKE 1 TABLET BY MOUTH ONCE DAILY 2021-10- 00:00: 00 Yes [facility] TAKE 1 TABLET BY MOUTH ONCE DAILY 2021-10 1- 00:00: 00 Yes [facility] TAKE 1 CAPSULE BY MOUTH TWICE DAILY 2021-10 00:00: 00 Yes [facility] TAKE 1 TABLET BY MOUTH ONCE DAILY 0 9-28 00:00: 00 Yes [facility]her Michel TAKE 1 CAPSULE BY MOUTH THREE TIMES DAILY NEEDED FOR ANXIETY 0 9-13 00:00: 00 Yes [facility] TAKE 1 TABLET BY MOUTH ONCE DAILY 0 9-08 00:00: 00 Yes [facility] TAKE 1 CAPSULE BY MOUTH THREE TIMES DAILY NEEDED FOR ANXIETY 0 - 00:00: 00 Yes [facility] TAKE 1 CAPSULE BY MOUTH EVERY 12 HOURS FOR 10 DAYS 0 30 00:00: 00 Yes [facility] TAKE 1 TABLET BY MOUTH ONCE DAILY 0 - 00:00: 00 Yes 20 [facility] TAKE 1 TABLET BY MOUTH ONCE DAILY 0 05-03 00:00: 00 Yes [facility] Michel TAKE 1 TABLET BY MOUTH TWICE DAILY NEEDED FOR ANXIETY 0 05-03 00:00: 00 Yes 5 [facility] Dose Unknown 0 04-14 00:00: 00 Yes [facility] Vistaril 25 mg capsule 0 04-13 00:00: 00 Yes 1mg [facility] Dose Unknown 0 04-13 00:00: 00 Yes [facility] buspirone 5 mg tablet 0 04-03 00:00: 00 Yes 1mg [facility] Flonase Allergy Relief 50 mcg/actuati on nasal spray,suspe nsion 04-03 00:00: 00 Yes 12mcg/a ctuatio n [facility] Dose Unknown 04-03 00:00: 00 Yes [facility] USE 1 TO 2 SPRAY(S) IN EACH NOSTRIL ONCE DAILY 0 04-03 00:00: 00 Yes [facility] TAKE 1 TABLET BY MOUTH EVERY 12 HOURS FOR 10 DAYS 0 04-02 00:00: 00 Yes [facility] omeprazole 20 mg capsule,del ayed release - 00:00: 00 Yes 1mg [facility] Dose Unknown 0 03-22 00:00: 00 Yes [facility] Paxil 10 mg tablet 0 -26 00:00: 00 Yes 1mg [facility] Remeron 15 mg tablet 03-09 00:00: 00 Yes 1mg [facility] Paxil 20 mg tablet 01-27 00:00: 00 Yes 1mg [facility] Dose Unknown 01-27 00:00: 00 Yes [facility] LORazepam (ATIVAN) tablet 0.5 mg 01-14 00:24: 00 01-14 00:46 :00 No .5mg 0.5 mg, Oral, ONCE, 1 dose, On Sun01/13/22 at 1930, ALEJANDRO [facility] No known medications 01-13 19:38: 26 No [facility] Paxil 20 mg tablet 01-13 00:00: 00 Yes 1mg [facility] hydroxyzine HCl 25 mg tablet 01-13 00:00: 00 Yes 1mg [facility] Michel TAKE 1 TABLET BY MOUTH EVERY 8 HOURS NEEDED 01-10 00:00: 00 Yes [facility] Immunizations Ordered Immunization Name Filled Immunization Name Date Status Comments Source HPV9 2025-05-26 00:00:00 Completed [facility] TDAP 2025-03-30 00:00:00 Completed [facility] HPV9 2024-06-13 00:00:00 Completed [facility] HPV9 HPV9 2024-06-13 00:00:00 Completed [facility] HPV9 2024-04-10 00:00:00 Completed HPV9 HPV9 2024-04-10 00:00:00 Completed [facility] HPV9 HPV9 2024-04-10 00:00:00 Completed [facility] SARS-COV-2 COVID-19 PFIZER VACCINE 2021-06-09 00:00:00 Completed [facility] SARS-COV-2 COVID-19 PFIZER VACCINE 2021-06-09 00:00:00 Completed [facility] SARS-COV-2 COVID-19 PFIZER VACCINE 2021-06-09 00:00:00 Completed [facility] SARS-COV-2 COVID-19 PFIZER VACCINE 2021-06-09 00:00:00 Completed [facility] SARS-COV-2 COVID-19 PFIZER VACCINE 2021-06-09 00:00:00 Completed [facility] SARS-COV-2 COVID-19 PFIZER VACCINE 2021-05-19 00:00:00 Completed [facility] SARS-COV-2 COVID-19 PFIZER VACCINE 2021-05-19 00:00:00 Completed [facility] SARS-COV-2 COVID-19 PFIZER VACCINE 2021-05-19 00:00:00 Completed [facility] SARS-COV-2 COVID-19 PFIZER VACCINE 2021-05-19 00:00:00 Completed [facility] SARS-COV-2 COVID-19 PFIZER VACCINE 2021-05-19 00:00:00 Completed [facility] SARS-COV-2 COVID-19 PFIZER VACCINE Unknown Completed [facility] SARS-COV-2 COVID-19 PFIZER VACCINE Unknown Completed [facility] Vital Signs Vital Name Observation Time Observation Value Comments S ource Systolic blood pressure 2025-05-26 16:32:00 123 mm[Hg] [facility] Diastolic blood pressure 2025-05-26 16:32:00 80 mm[Hg] [facility] Heart rate 2025-05-26 16:32:00 97 /min [facility] Body temperature 2025-05-26 16:32:00 36.28 Radha [facility] Respiratory rate 2025-05-26 16:32:00 16 /min [facility] Oxygen saturation in Arterial blood by Pulse oximetry 2025-05-26 16:32:00 100 /min [facility] Body height 2025-05-24 22:55:00 167.6 cm [facility] Body weight 2025-05-24 22:55:00 69.446 kg [facility] BMI 2025-05-24 22:55:00 24.72 kg/m2 [facility] Systolic blood pressure 2025-05-20 21:34:00 120 mm[Hg] [facility] Diastolic blood pressure 2025-05-20 21:34:00 74 mm[Hg] [facility] Heart rate 2025-05-20 21:34:00 85 /min [facility] Body temperature 2025-05-20 21:34:00 35.83 Radha [facility] Respiratory rate 2025-05-20 21:34:00 18 /min [facility] Body height 2025-05-20 21:34:00 167.6 cm [facility] weight 2025-05-20 21:34:00 68.72 kg [facility] BMI 2025-05-20 21:34:00 24.45 kg/m2 [facility] Systolic blood pressure 2025-05-11 20:51:00 125 mm[Hg] [facility] Diastolic blood pressure 2025-05-11 20:51:00 71 mm[Hg] [facility] Heart rate 2025-05-11 20:51:00 80 /min [facility] Body temperature 2025-05-11 20:51:00 36.44 Radha [facility] Respiratory rate 2025-05-11 20:51:00 18 /min [facility] Body weight 2025-05-11 20:51:00 65.545 kg [facility] BMI 2025-05-11 20:51:00 23.32 kg/m2 [facility] Systolic blood pressure 2025-05-04 21:06:00 122 mm[Hg] [facility] Diastolic blood pressure 2025-05-04 21:06:00 69 mm[Hg] [facility] Heart rate 2025-05-04 21:06:00 85 /min [facility] Body temperature 2025-05-04 21:06:00 36.67 Radha [facility] Respiratory rate 2025-05-04 21:06:00 16 /min [facility] Body height 2025-05-04 21:06:00 167.6 cm [facility] Body weight 2025-05-04 21:06:00 64.547 kg [facility] BMI 2025-05-04 21:06:00 22.97 kg/m2 [facility] Systolic blood pressure 2025-04-27 20:17:00 132 mm[Hg] [facility] Diastolic blood pressure 2025-04-27 20:17:00 75 mm[Hg] [facility] Heart rate 2025-04-27 20:17:00 86 /min [facility] Body temperature 2025-04-27 20:17:00 36.72 Rahda [facility] Respiratory rate 2025-04-27 20:17:00 16 /min [facility] Body weight 2025-04-27 20:17:00 63.231 kg [facility] BMI 2025-04-27 20:17:00 22.50 kg/m2 [facility] Systolic blood pressure 2025-04-13 19:41:00 116 mm[Hg] [facility] Diastolic blood pressure 2025-04-13 19:41:00 71 mm[Hg] [facility] Heart rate 2025-04-13 19:41:00 82 /min [facility] Body temperature 2025-04-13 19:41:00 36.56 Radha [facility] Respiratory rate 2025-04-13 19:41:00 17 /min [facility] Body height 2025-04-13 19:41:00 167.6 cm [facility] Body weight 2025-04-13 19:41:00 61.037 kg [facility] BMI 2025-04-13 19:41:00 21.72 kg/m2 [facility] Systolic blood pressure 2025-04-01 14:41:00 110 mm[Hg] [facility] Diastolic blood pressure 2025-04-01 14:41:00 72 mm[Hg] [facility] Heart rate 2025-04-01 14:41:00 73 /min [facility] Body temperature 2025-04-01 14:41:00 36.22 Radha [facility] Respiratory rate 2025-04-01 14:41:00 17 /min [facility] Body height 2025-04-01 14:41:00 167.6 cm [facility] Body weight 2025-04-01 14:41:00 58.684 kg [facility] BMI 2025-04-01 14:41:00 20.88 kg/m2 [facility] Systolic blood pressure 2025-03-30 19:43:00 101 mm[Hg] [facility] Diastolic blood pressure 2025-03-30 19:43:00 56 mm[Hg] [facility] Heart rate 2025-03-30 19:43:00 85 /min [facility] Body temperature 2025-03-30 19:43:00 36.22 Radha [facility] Respiratory rate 2025-03-30 19:43:00 17 /min [facility] Body height 2025-03-30 19:43:00 167.6 cm [facility] Body weight 2025-03-30 19:43:00 58.684 kg [facility] BMI 2025-03-30 19:43:00 20.88 kg/m2 [facility] Systolic blood pressure 2025-03-16 20:10:00 107 mm[Hg] [facility] Diastolic blood pressure 2025-03-16 20:10:00 64 mm[Hg] [facility] Heart rate 2025-03-16 20:10:00 70 /min [facility] Body temperature 2025-03-16 20:10:00 36.61 Radha [facility] Respiratory rate 2025-03-16 20:10:00 17 /min [facility] Body height 2025-03-16 20:10:00 167.6 cm [facility] Body weight 2025-03-16 20:10:00 57.805 kg [facility] BMI 2025-03-16 20:10:00 20.57 kg/m2 [facility] Systolic blood pressure 2025-03-03 16:20:00 123 mm[Hg] [facility] Diastolic blood pressure 2025-03-03 16:20:00 65 mm[Hg] [facility] Heart rate 2025-03-03 16:20:00 88 /min [facility] Body temperature 2025-03-03 16:20:00 36.22 Radha [facility] Respiratory rate 2025-03-03 16:20:00 18 /min [facility] Body height 2025-03-03 16:20:00 167.6 cm [facility] Body weight 2025-03-03 16:20:00 59.966 kg [facility] BMI 2025-03-03 16:20:00 21.34 kg/m2 [facility] Systolic blood pressure 2025-02-17 19:17:00 107 mm[Hg] [facility] Diastolic blood pressure 2025-02-17 19:17:00 69 mm[Hg] [facility] Heart rate 2025-02-17 19:17:00 73 /min [facility] Body temperature 2025-02-17 19:17:00 36.28 Radha [facility] Respiratory rate 2025-02-17 19:17:00 18 /min [facility] Body height 2025-02-17 19:17:00 167.6 cm [facility] Body weight 2025-02-17 19:17:00 58.151 kg [facility] BMI 2025-02-17 19:17:00 20.69 kg/m2 [facility] Systolic blood pressure 2025-02-06 23:10:00 120 mm[Hg] [facility] Diastolic blood pressure 2025-02-06 23:10:00 70 mm[Hg] [facility] Heart rate 2025-02-06 23:10:00 78 /min [facility] Body temperature 2025-02-06 23:10:00 36.67 Radha [facility] Respiratory rate 2025-02-06 23:10:00 15 /min [facility] Oxygen saturation in Arterial blood by Pulse oximetry 2025-02-06 23:10:00 100 /min [facility] Body height 2025-02-06 19:46:00 167.6 cm [facility] Body weight 2025-02-06 19:46:00 57.561 kg [facility] BMI 2025-02-06 19:46:00 20.48 kg/m2 [facility] Systolic blood pressure 2025-01-20 20:30:00 112 mm[Hg] [facility] Diastolic blood pressure 2025-01-20 20:30:00 66 mm[Hg] [facility] Heart rate 2025-01-20 20:30:00 73 /min [facility] Body temperature 2025-01-20 20:30:00 36.11 Radha [facility] Respiratory rate 2025-01-20 20:30:00 18 /min [facility] Body height 2025-01-20 20:30:00 167.6 cm [facility] Body weight 2025-01-20 20:30:00 59.875 kg [facility] BMI 2025-01-20 20:30:00 21.31 kg/m2 [facility] Systolic blood pressure 2025-01-12 20:20:00 116 mm[Hg] [facility] Diastolic blood pressure 2025-01-12 20:20:00 80 mm[Hg] [facility] Heart rate 2025-01-12 20:20:00 81 /min [facility] Body temperature 2025-01-12 20:20:00 36.56 Radha [facility] Respiratory rate 2025-01-12 20:20:00 18 /min [facility] Body height 2025-01-12 20:20:00 167.6 cm [facility] Body weight 2025-01-12 20:20:00 58.968 kg [facility] BMI 2025-01-12 20:20:00 20.98 kg/m2 [facility] Systolic blood pressure 2024-12-16 15:44:00 109 mm[Hg] [facility] Diastolic blood pressure 2024-12-16 15:44:00 62 mm[Hg] [facility] Heart rate 2024-12-16 15:44:00 74 /min [facility] Body temperature 2024-12-16 15:44:00 36.72 Radha [facility] Respiratory rate 2024-12-16 15:44:00 18 /min [facility] Body weight 2024-12-16 15:44:00 58.559 kg [facility] BMI 2024-12-16 15:44:00 20.84 kg/m2 [facility] Systolic blood pressure 2024-11-18 16:57:00 112 mm[Hg] [place] [facility] Diastolic blood pressure 2024-11-18 16:57:00 65 mm[Hg] [facility] Heart rate 2024-11-18 16:57:00 87 /min [facility] Body temperature 2024-11-18 16:57:00 36.78 Radha [facility] Respiratory rate 2024-11-18 16:57:00 16 /min [facility] Body height 2024-11-18 16:57:00 167.6 cm [facility] Body weight 2024-11-18 16:57:00 59.648 kg [facility] BMI 2024-11-18 16:57:00 21.22 kg/m2 [facility] Systolic blood pressure 2024-10-21 13:48:00 108 mm[Hg] [facility] Diastolic blood pressure 2024-10-21 13:48:00 63 mm[Hg] [facility] Heart rate 2024-10-21 13:48:00 85 /min [facility] Body temperature 2024-10-21 13:48:00 36.17 Radha [facility] Respiratory rate 2024-10-21 13:48:00 15 /min [facility] Body height 2024-10-21 13:48:00 167.6 cm [facility] Body weight 2024-10-21 13:48:00 60.102 kg [facility] BMI 2024-10-21 13:48:00 21.39 kg/m2 [facility] Systolic blood pressure 2024-09-28 09:00:00 99 mm[Hg] [facility] Diastolic blood pressure 2024-09-28 09:00:00 83 mm[Hg] [facility] Heart rate 2024-09-28 09:00:00 89 /min [facility] Respiratory rate 2024-09-28 09:00:00 16 /min [facility] Oxygen saturation in Arterial blood by Pulse oximetry 2024-09-28 09:00:00 100 /min [facility] Body temperature 2024-09-28 05:25:00 37 Radha [facility] Body height 2024-09-28 05:25:00 167.6 cm [facility] Body weight 2024-09-28 05:25:00 61.508 kg [facility] BMI 2024-09-28 05:25:00 21.89 kg/m2 [facility] Systolic blood pressure 2024-09-23 15:19:00 110 mm[Hg] [facility] Diastolic blood pressure 2024-09-23 15:19:00 62 mm[Hg] [facility] Heart rate 2024-09-23 15:19:00 81 /min [facility] Body temperature 2024-09-23 15:19:00 36.72 Radha [facility] Respiratory rate 2024-09-23 15:19:00 16 /min [facility] Body height 2024-09-23 15:19:00 167.6 cm [facility] Body weight 2024-09-23 15:19:00 63.458 kg [facility] BMI 2024-09-23 15:19:00 22.58 kg/m2 [facility] Systolic blood pressure 2024-07-02 20:56:00 123 mm[Hg] [facility] Diastolic blood pressure 2024-07-02 20:56:00 79 mm[Hg] [facility] Heart rate 2024-07-02 20:56:00 73 /min [facility] Respiratory rate 2024-07-02 20:56:00 19 /min [facility] Body height 2024-07-02 20:56:00 167.6 cm [facility] Body weight 2024-07-02 20:56:00 58.605 kg [facility] BMI 2024-07-02 20:56:00 20.85 kg/m2 [facility] Oxygen saturation in Arterial blood by Pulse oximetry 2024-07-02 20:56:00 100 /min [facility] Systolic blood pressure 2024-07-02 03:25:00 130 mm[Hg] [facility] Diastolic blood pressure 2024-07-02 03:25:00 56 mm[Hg] [facility] Heart rate 2024-07-02 03:25:00 73 /min [facility] Body temperature 2024-07-02 03:25:00 37.28 Radha [facility] Respiratory rate 2024-07-02 03:25:00 16 /min [facility] Oxygen saturation in Arterial blood by Pulse oximetry 2024-07-02 03:25:00 100 /min [facility] Body height 2024-07-02 00:06:00 167.6 cm [facility] Body weight 2024-07-02 00:06:00 59.875 kg [facility] BMI 2024-07-02 00:06:00 21.31 kg/m2 [facility] Systolic blood pressure 2022-01-14 00:46:45 142 mm[Hg] [facility] Diastolic blood pressure 2022-01-14 00:46:45 89 mm[Hg] [facility] Heart rate 2022-01-14 00:46:45 95 /min [facility] Respiratory rate 2022-01-14 00:46:45 20 /min [facility] Oxygen saturation in Arterial blood by Pulse oximetry 2022-01-14 00:46:45 98 /min [facility] Body temperature 2022-01-13 23:47:00 36.67 Radha [facility] Body height 2022-01-13 23:47:00 167.6 cm [facility] Body weight 2022-01-13 23:47:00 48.988 kg [facility] BMI 2022-01-13 23:47:00 17.43 kg/m2 [facility] BP Systolic 2025-03-24 16:27:00 125 mm[Hg] Step hen F Anand BP Diastolic 2025-03-24 16:27:00 70 mm[Hg] Darrick phen F Anand Weight Measured 2025-03-24 16:27:00 128.60 pounds Topher F Anand Height Measured 2025-03-24 16:27:00 66.00 inches Topher F Anand Body Temperature 2025-03-24 16:27:00 98.20 degrees Topher F Anand Heart Rate 2025-03-24 16:27:00 74.00 /min Nicci en F Anand Respiratory Rate 2025-03-24 16:27:00 18.00 /min Topher F Anand BP Systolic 2025-03-10 16:41:00 110 mm[Hg] Step hen F Anand BP Diastolic 2025-03-10 16:41:00 75 mm[Hg] Darrick phen F Anand Weight Measured 2025-03-10 16:41:00 128.80 pounds Topher F Anand Height Measured 2025-03-10 16:41:00 66.00 inches Topher F Anand Body Temperature 2025-03-10 16:41:00 97.70 degrees Topher F Anand Heart Rate 2025-03-10 16:41:00 94.00 /min Nicci en F Anand Respiratory Rate 2025-03-10 16:41:00 Topher F Anand BP Systolic 2025-03-10 15:51:00 110 mm[Hg] Step hen F Anand BP Diastolic 2025-03-10 15:51:00 75 mm[Hg] Darrick phen F Anand Weight Measured 2025-03-10 15:51:00 128.80 pounds Topher F Anand Height Measured 2025-03-10 15:51:00 66.00 inches Topher F Anand Body Temperature 2025-03-10 15:51:00 97.70 degrees Topher F Anand Heart Rate 2025-03-10 15:51:00 94.00 /min Nicci en F Anand Respiratory Rate 2025-03-10 15:51:00 Topher F Anand BP Systolic 2025-03-04 11:32:00 132.6 mm[Hg] St ephen F Anand BP Diastolic 2025-03-04 11:32:00 Darrick phen F Anand Weight Measured 2025-03-04 11:32:00 134.00 pounds Topher F Anand Height Measured 2025-03-04 11:32:00 66.00 inches Topher F Anand Body Temperature 2025-03-04 11:32:00 98.40 degrees Topher F Anand Heart Rate 2025-03-04 11:32:00 80.00 /min Nicci en F Anand Respiratory Rate 2025-03-04 11:32:00 18.00 /min Topher F Anand BP Systolic 2025-02-25 17:31:00 106 mm[Hg] Step hen F Anand BP Diastolic 2025-02-25 17:31:00 65 mm[Hg] Darrick phen F Anand Weight Measured 2025-02-25 17:31:00 134.20 pounds Topher F Anand Height Measured 2025-02-25 17:31:00 66.00 inches Topher F Anand Body Temperature 2025-02-25 17:31:00 98.00 degrees Topher F Anand Heart Rate 2025-02-25 17:31:00 71.00 /min Nicci en F Anand Respiratory Rate 2025-02-25 17:31:00 17.00 /min Topher F Anand BP Systolic 2025-02-04 14:15:00 117 mm[Hg] Step hen F Anand BP Diastolic 2025-02-04 14:15:00 71 mm[Hg] Darrick phen F Anand Weight Measured 2025-02-04 14:15:00 129.00 pounds Topher F Anand Height Measured 2025-02-04 14:15:00 66.00 inches Topher F Anand Body Temperature 2025-02-04 14:15:00 98.30 degrees Topher F Anand Heart Rate 2025-02-04 14:15:00 84.00 /min Nicci en F Anand Respiratory Rate 2025-02-04 14:15:00 16.00 /min Topher F Anand BP Systolic 2025-01-24 09:47:00 106 mm[Hg] Step hen F Anand BP Diastolic 2025-01-24 09:47:00 73 mm[Hg] Darrick phen F Anand Weight Measured 2025-01-24 09:47:00 130.00 pounds Topher F Anand Height Measured 2025-01-24 09:47:00 66.00 inches Topher F Anand Body Temperature 2025-01-24 09:47:00 98.90 degrees Topher [...] Anand Respiratory Rate 2024-10-03 14:57:00 18.00 /min Topehr F Anand BP Systolic 2024-06-13 16:02:00 133 [...] Date / Time Performed Performing Clinician Source CBC WITH DIFF 2025-05-26 08:56:00 Vincenzo [facility] VENOUS CORD GAS 2025-05-25 17:42:[address] [facility] CENTRAL NEURAXIAL BLOCK 2025-05-25 11:37:00 Clarence Schaefer [facility] CBC WITH DIFF 2025-05-24 23:53:00 Tatiana Martinez [facility] HEPATITIS B SURFACE ANTIGEN 2025-05-24 23:53:00 Michelle [facility] HB ABO GROUPING 2025-05-24 23:53:[address] [facility] RHO (D) IMMUNE GLOBULIN 2025-05-24 23:53:00 Vincenzo Cely [facility] EXTRA TUBE SST 2025-05-24 23:53:00 Sohail, Lenny [facility] HIV 1/2 AG-AB WITH REFLEX 2025-05-24 23:53:00 Tatiana Martinez [facility] SYPHILIS IGG/IGM 2025-05-24 23:53:00 Tatiana Martinez [facility] SECOND AND THIRD TRIMESTER ULTRASOUND 2025-05-11 20:49:00 Janki Arce [facility] POCT URINALYSIS 2025-05-04 21:07:00 Janki Arce [facility] POCT URINALYSIS GLUCOSE & PROTEIN 2025-04-27 20:19:00 Janki Arce [facility] SECOND AND THIRD TRIMESTER ULTRASOUND 2025-04-13 20:28:00 Janki Arce [facility] TDAP VACCINE, >11 YRS, IM 2025-03-30 20:05:39 Janki Arce [facility] URINE CULTURE 2025-03-16 21:28:00 Sharri Pena [facility] GALV ONLY - VAGINAL PATHOGENS BY NUCLEIC ACID TESTING 2025-03-16 21:28:00 Sharri Pena [facility] HIV 1/2 AG-AB WITH REFLEX 2025-03-16 20:56:00 Sharri Pena [facility] SYPHILIS IGG/IGM 2025-03-16 20:56:00 Sharri Pena [facility] SECOND AND THIRD TRIMESTER ULTRASOUND 2025-03-16 20:02:00 Janki Arce [facility] POCT URINALYSIS 2025-03-16 00:00:00 Janki Arce [facility] GLUCOSE 1 HOUR POST PRANDIAL 2025-03-03 17:20:00 Janki Arce [facility] CBC WITH DIFF 2025-03-03 17:20:00 Janki Arce [facility] POCT SARS-COV-2 ANTIGEN (BINAX NOW) 2025-03-03 17:04:00 Janki Arce [facility] POCT MOLECULAR FLU 2025-03-03 16:46:00 Sundar Arce [facility] POCT MOLECULAR STREP 2025-03-03 16:45:00 Enrrique Arce [facility] POCT URINALYSIS 2025-03-03 16:23:00 Janki Arce [facility] SECOND AND THIRD TRIMESTER ULTRASOUND 2025-02-17 20:55:00 Janki Arce [facility] POCT URINALYSIS 2025-02-17 19:20:00 Janki Arce [facility] TROPONIN I 2025-02-06 21:20:00 Levi Saldivar [facility] COMP. METABOLIC PANEL (85792) 2025-02-06 21:20:00 Levi Saldivar [facility] CBC WITH DIFF 2025-02-06 21:20:00 Levi Saldivar [facility] URINALYSIS 2025-02-06 20:42:00 Levi Saldivar [facility] POCT URINALYSIS 2025-01-20 20:31:00 Janki Arce [facility] POCT URINALYSIS 2025-01-12 20:27:00 Janki Arce [facility] SECOND AND THIRD TRIMESTER ULTRASOUND 2025-01-12 20:15:00 Janki Arce [facility] POCT URINALYSIS 2024-12-16 15:45:00 Janki Arce [facility] NIPT - NON-INVASIVE TEST RESULTS 2024-11-26 13:16:05 Doctor Unassigned, [place] [facility] NIPT - NON-INVASIVE TEST RESULTS 2024-11-24 15:59:55 Doctor Unassigned, [place] [facility] POCT URINALYSIS 2024-11-18 16:58:00 Janki Arce [facility] FIRST TRIMESTER ULTRASOUND 2024-10-28 20:50:00 Janki Arce [facility] POCT URINALYSIS 2024-10-21 13:50:00 Janki Arce [facility] US FIRST TRIMESTER LESS THAN 14 WEEKS WITH TRANSVAGINAL 2024-09-28 08:24:18 Nichole Hanson [facility] LIPASE 2024-09-28 06:03:[address] [facility] COMP. METABOLIC PANEL (41514) 2024-09-28 06:03:00 Nichole Hanson [facility] CBC WITH DIFF 2024-09-28 06:03:00 Nichole Hanson [facility] URINALYSIS 2024-09-28 06:03:00 [facility] POCT TEST 2024-09-23 15:18:00 Tae Arce [facility] POCT URINALYSIS W/O SPECIFIC GRAVITY 2024-09-23 15:18:00 Janki Arce [facility] TRANSTHORACIC ECHO (TTE) COMPLETE 2024-07-16 20:45:47 Emery Andrade [facility] POCT TEST 2024-07-02 02:16:00 Mahesh Hagan [facility] [id number] Colposcopy Entire Vagina W/vagina/cervix Bx 2024-02-13 00:00:00 Topher Michel NOTICE OF PRIVACY PRACTICES 2022-01-13 23:24:42 Doctor Unassigned, [place] [facility] CONSENT/REFUSAL FOR DIAGNOSIS AND TREATMENT 2022-01-13 23:23:10 Doctor Unassigned, [place] [facility] Encounters Start Date/Time End Date/Time Encounter Type Admission Type Attending Clinicians Care Facility Care Department Encounter ID Source 2023-09-25 16:50:01 Outpatient [facility] [id number] [facility] 2022-07-28 21:09:46 Outpatient [facility] [id number] [id number] 2025-05-24 17:19:00 2025-05-26 16:55:00 Hospital Encounter LENNY GARG COREY [facility] [id number] [facility] 2025-05-25 06:00:00 2025-05-25 13:46:00 Anesthesia Event Cleo Butler Jake [facility] 1.2.840.114 350.1.13.10 4.2.7.2.686 [id number] [facility] 2025-04-20 00:00:00 2025-05-23 18:27:58 Patient Secure Msg YazminJanki [facility] CLINICAL DATA MANAGEMENT DIRECTOR [facility] CHILD [facility] 1.2.840.114 350.1.13.10 4.2.7.2.686 [id number] [facility] 2025-05-20 16:15:00 2025-05-20 16:50:36 Routine Visit R JANKI ARCE [facility]INICAL DATA MANAGEMENT DIRECTOR [facility] 1.2.840.114 350.1.13.10 4.2.7.2.686 [id number] [facility] 2025-05-14 00:00:00 2025-05-14 13:47:13 Abstract CrescenciokatieJanki lozano [facility] CLINICAL DATA MANAGEMENT DIRECTOR [facility] & CHILD [facility] 1.2.840.114 350.1.13.10 4.2.7.2.686 [id number] [facility] 2025-05-13 14:29:14 2025-05-13 14:29:[address] [facility] [id number] Topher Michel 2025-05-11 16:00:00 2025-05-11 16:15:23 Routine Visit R Janki Arce [facility] CLINICAL DATA MANAGEMENT DIRECTOR [facility] 1.2.840.114 350.1.13.10 4.2.7.2.686 [id number] [facility] 2025-05-11 15:30:00 2025-05-11 16:15:20 Hammer Repairer Visit R GODFREY ISAAC CHASEY [facility] CLINICAL DATA MANAGEMENT DIRECTOR [facility] & [facility] 1.2.840.114 350.1.13.10 4.2.7.2.686 [id number] [facility] 2025-05-06 14:37:20 2025-05-06 14:37:[address] [facility] [id number] Topher Michel 2025-05-05 00:00:00 2025-05-05 13:24:09 Telephone Janki Arce [facility] CLINICAL DATA MANAGEMENT DIRECTOR [facility] 1.2.840.114 350.1.13.10 4.2.7.2.686 [id number] [facility] 2025-05-04 00:00:00 2025-05-05 13:23:35 Telephone Janki Arce [facility] CLINICAL DATA MANAGEMENT DIRECTOR [facility] 1.2.840.114 350.1.13.10 4.2.7.2.686 [id number] [facility] 2025-05-04 15:30:00 2025-05-04 16:31:04 Routine Visit R Janki Arce [facility] CLINICAL DATA MANAGEMENT DIRECTOR [facility] 1.2.840.114 350.1.13.10 4.2.7.2.686 [id number] [facility] 2025-04-30 12:42:10 2025-04-30 12:42:[address] [facility] [id number] Topher Michel 2025-04-27 15:00:00 2025-04-27 15:37:44 Routine Visit R Janki Arce [facility] CLINICAL DATA MANAGEMENT DIRECTOR [facility] & CHILD [facility] 1.2.840.114 350.1.13.10 4.2.7.2.686 [id number] [facility] 2025-03-20 00:00:00 2025-04-25 18:46:20 Patient Secure Janki Baxter [facility] CLINICAL DATA MANAGEMENT DIRECTOR [facility] 1.2.840.114 350.1.13.10 4.2.7.2.686 [id number] [facility] 2025-03-13 00:00:00 2025-04-18 18:30:09 Patient Secure Janki Baxter [facility] CLINICAL DATA MANAGEMENT DIRECTOR [facility] 1.2.840.114 350.1.13.10 4.2.7.2.686 [id number] [facility] 2025-04-16 13:00:00 2025-04-16 13:00:00 Outpatient [facility] [id number] [facility] 2025-04-14 14:06:08 2025-04-14 14:06:[address] [facility] [id number] Topher Michel 2025-04-13 00:00:00 2025-04-13 16:41:54 Abstract Janki Arce [facility] CLINICAL DATA MANAGEMENT DIRECTOR [facility] 1.2840.114 350.1.13.10 4.2.7.2.686 [id number] [facility] 2025-04-13 15:30:00 2025-04-13 16:24:42 Hammer Repairer Visit PADMA GAUTHIER KARIN [facility] CLINICAL DATA MANAGEMENT DIRECTOR [facility]ILD [facility] 1.2840.114 350.1.13.10 4.2.7.2.686 [id number] [facility] 2025-04-13 14:30:00 2025-04-13 15:04:53 Routine Visit R JANKI ARCE [facility] CLINICAL DATA MANAGEMENT DIRECTOR [facility] 1.2.840.114 350.1.13.10 4.2.7.2.686 [id number] [facility] 2025-04-03 09:38:46 2025-04-03 09:38:46 Outpatient SFA [facility] [id number] Topher Michel 2025-04-01 15:39:21 2025-04-01 15:39:21 Outpatient SFA [facility] [id number] Topher Michel 2025-04-01 09:30:00 2025-04-01 10:16:28 Office Visit R BENJAMIN ALVARADO [facility] CLINICAL DATA MANAGEMENT DIRECTOR [facility]ILD [facility] 1.2.840.114 350.1.13.10 4.2.7.2.686 [id number] [facility] 2025-03-30 14:15:00 2025-03-30 15:27:37 Routine Visit R Janki Arce [facility] DIRECTOR [facility] & CHILD [facility] 1.2.840.114 350.1.13.10 4.2.7.2.686 [id number] 107 [id number] [facility] 2025-02-24 00:00:00 2025-03-28 18:20:08 Patient Secure Msg Janki Arce [facility] 1.2.840.114 350.1.13.10 4.2.7.2.686 [id number] 107 [id number] [facility] 2025-03-25 09:30:18 2025-03-25 09:30:18 Outpatient SFA SFA [id number] Topher Michel 2025-03-24 16:18:18 2025-03-24 16:18:18 Outpatient SFA SFA [id number] Topher Michel 2025-03-24 13:15:00 2025-03-24 13:15:00 Outpatient R AZUCENA ELLINGTON [facility] [id number] [facility] 2025-03-24 00:00:00 2025-03-24 00:00:[address] [facility] [id number] Topher Michel 2025-03-23 09:22:22 2025-03-23 09:22:[address] [facility] [id number] Topher Michel 2025-03-20 00:00:00 2025-03-20 16:55:29 Telephone Janki Arce [facility] DIRECTOR [facility] & CHILD [facility] 1.2.840.114 350.1.13.10 4.2.7.2.686 [id number] 107 [id number] [facility] 2025-03-17 00:00:00 2025-03-17 09:47:19 Abstract Sharri Pena [facility] DIRECTOR [facility] & CHILD [facility] 1.2.840.114 350.1.13.10 4.2.7.2.686 [id number] 107 [id number] [facility] 2025-03-16 15:30:00 2025-03-16 16:04:33 Routine Visit SHARRI BAILEY [facility] DIRECTOR [facility] 1.2.840.114 350.1.13.10 4.2.7.2.686 [id number] 107 [id number] [facility] 2025-03-16 14:30:00 2025-03-16 15:00:41 Hammer Repairer Visit PADMA HASSAN KARIN FOX, KARIN [facility]NAG[facility] DIRECTOR [facility] & CHILD [facility] 1.2.840.114 350.1.13.10 4.2.7.2.686 [id number] [facility] 2025-03-16 13:48:42 2025-03-16 13:48:[address] [facility] [id number] Topher Michel 2025-03-16 11:00:00 2025-03-16 11:00:00 Outpatient SHARRI [facility] [id number] [facility] 2025-03-10 15:46:30 2025-03-10 15:46:30 Outpatient SFA SFA [id number] Topher Michel 2025-03-09 00:00:00 2025-03-10 09:22:28 Patient Secure Msg BandarSundar lozanoola C [facility] DIRECTOR [facility] & CHILD [facility] 1..840.114 350.1.13.10 4.2.7.2.686 [id number] 107 [id number] [facility] 2025-03-10 00:00:00 2025-03-10 00:00:00 Outpatient Visit SFA [id number] Topher Michel 2025-02-04 00:00:00 2025-03-07 18:16:57 Patient Secure Msg BandarmartaEnrriqueJanki C [facility] DIRECTOR [facility] & CHILD [facility] 1..840.114 350.1.13.10 4.2.7.2.686 [id number] [facility] 2025-03-04 11:31:23 2025-03-04 11:31:[address] [facility] [id number] Topher Michel 2025-03-04 00:00:00 2025-03-04 00:00:00 Outpatient Visit SFA [id number] Topher Michel 2025-03-03 11:15:00 2025-03-03 11:47:47 Routine Visit R Janki Arce C [facility] DIRECTOR [facility] & CHILD [facility] 1..840.114 350.1.13.10 4.2.7.2.686 [id number] 107 [id number] [facility] 2025-02-27 00:00:00 2025-02-27 10:19:24 Patient Secure Msg Bandarmarta, Janki C [facility] DIRECTOR [facility] & CHILD [facility] 1.2.840.114 350.1.13.10 4.2.7.2.686 [id number] 107 [id number] [facility] 2025-02-26 00:00:00 2025-02-27 07:00:43 Patient Secure Msg Janki Arce [facility] DIRECTOR [facility] 1.2.840.114 350.1.13.10 4.2.7.2.686 [id number] 107 [id number] [facility] 2025-02-25 17:28:29 2025-02-25 17:28:29 Outpatient SFA SFA [id number] Topher Michel 2025-02-25 00:00:00 2025-02-25 00:00:00 Outpatient Visit SFA [id number] Topher Michel 2025-02-23 00:00:00 2025-02-24 10:55:05 Patient Secure Msg Janki Arce Lorne [facility] DIRECTOR [facility] 1.2.840.114 350.1.13.10 4.2.7.2.686 [id number] 107 [id number] [facility] 2025-01-16 00:00:00 2025-02-21 18:20:41 Patient Secure Msg Janki Arce [facility] DIRECTOR [facility] CHILD [facility] 1.2.840.114 350.1.13.10 4.2.7.2.686 [id number] 107 [id number] [facility] 2025-02-17 00:00:00 2025-02-17 16:46:56 Abstract CrescencioSundar turnerconnie Pradhan [facility]NAG[facility] DIRECTOR [facility] CHILD [facility] 1.2.840.114 350.1.13.10 4.2.7.2.686 [id number] [facility] 2025-02-17 15:30:00 2025-02-17 16:19:25 Outpatient P CHOLO PADMAPADMA CARLSON [facility] [id number] [facility] 2025-02-17 15:30:00 2025-02-17 16:19:25 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, Padma Lawrence [facility]NAG[facility] DIRECTOR [facility] & CHILD [facility] 1.2.840.114 350.1.13.10 4.2.7.2.686 [id number] [facility] 2025-02-17 14:15:00 2025-02-17 15:09:45 Routine Visit Janki Arce [facility]NAG[facility] DIRECTOR [facility] & CHILD [facility] 1.2.840.114 350.1.13.10 4.2.7.2.686 [id number] 107 [id number] [facility] 2025-02-11 11:43:11 2025-02-11 11:43:[address] [facility] [id number] Topher Michel 2025-01-06 00:00:00 2025-02-07 18:17:32 Patient Secure Msg Janki Arce [facility] DIRECTOR [facility] & CHILD [facility] 1.2.840.114 350.1.13.10 4.2.7.2.686 [id number] 107 [id number] [facility] 2025-02-06 14:54:00 2025-02-06 18:12:00 Emergency X LEVI SALDIVAR ERICCA [facility] [id number] [facility] 2025-02-06 14:54:00 2025-02-06 18:12:00 Emergency Levi Saldivar [facility] 1.2840.114 350.1.13.10 4.2.7.2.686 [id number] [facility] 2025-02-05 00:00:00 2025-02-06 06:56:46 Patient Secure Msg Janki Arce [facility]NAG[facility] DIRECTOR [facility] & CHILD [facility] 1.2.840.114 350.1.13.10 4.2.7.2.686 [id number] 107 [id number] [facility] 2025-02-04 14:45:00 2025-02-04 14:45:00 Outpatient R JANKI [facility] [id number] [facility] 2025-02-04 14:33:39 2025-02-04 14:33:[address] [facility] [id number] Topher Michel 2025-02-04 00:00:00 2025-02-04 13:51:31 Telephone Janki Arce [facility] MANAGEMENT DIRECTOR [facility] & CHILD [facility] 1.2.840.114 350.1.13.10 4.2.7.2.686 [id number] 107 [id number] [facility] 2025-02-04 00:00:00 2025-02-04 00:00:00 Outpatient Visit SFA [id number] Topher Michel 2025-01-27 13:18:26 2025-01-27 13:18:[address] [facility] [id number] Topher Michel 2025-01-24 09:34:02 2025-01-24 09:34:[address] [facility] [id number] Topher Michel 2025-01-24 00:00:00 2025-01-24 00:00:00 Outpatient Visit SFA [id number] Topher Michel 2025-01-20 15:15:00 2025-01-20 15:43:15 Outpatient SHARRI [facility] [id number] [facility] 2025-01-20 15:15:00 2025-01-20 15:43:15 Routine Visit Janki Arce Brenda [facility] CLINICAL DATA MANAGEMENT DIRECTOR [facility] & CHILD [facility] 1..840.114 350.1.13.10 4.2.7.2.686 [id number] 107 [id number] [facility] 2025-01-16 17:10:54 2025-01-16 17:10:54 Outpatient SFA SFA [id number] Topher Michel 2025-01-16 00:00:00 2025-01-16 00:00:00 Outpatient Visit SFA [id number] Topher Michel 2025-01-13 00:00:00 2025-01-13 14:52:51 Abstract Janki Arce [facility] MANAGEMENT DIRECTOR [facility] & CHILD [facility] 1..840.114 350.1.13.10 4.2.7.2.686 [id number] [facility] 2025-01-12 15:00:00 2025-01-12 15:46:50 Routine Visit Janki Arce [facility] MANAGEMENT DIRECTOR [facility] & CHILD [facility] 1..840.114 350.1.13.10 4.2.7.2.686 [id number] [facility] 2025-01-12 14:00:00 2025-01-12 15:18:53 Outpatient LENNY ROBERTSON [facility] [id number] [facility] 2025-01-12 14:00:00 2025-01-12 15:18:53 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 [id number] Topher Michel 2025-01-05 00:00:00 2025-01-06 07:20:25 Patient Secure Msg Janki Arce [facility] MANAGEMENT DIRECTOR [facility] & CHILD [facility] 1.2.840.114 350.1.13.10 4.2.7.2.686 [id number] 107 [id number] [facility] 2024-12-16 12:45:00 2024-12-16 12:45:00 Outpatient R JANKI [facility] [id number] [facility] 2024-12-16 09:30:00 2024-12-16 10:08:35 Routine Visit Janki Arce [facility]NAG[facility] DIRECTOR [facility] 1.2.840.114 350.1.13.10 4.2.7.2.686 [id number] [facility] 2024-11-24 00:00:00 2024-11-29 06:09:01 Orders Only Doctor Unassigned, [place] Doctor Unassigned, [place] [facility] 1.2.840.114 350.1.13.10 4.2.7.2.686 [id number] [facility] 2024-11-26 00:00:00 2024-11-29 06:07:10 Orders Only Doctor Unassigned, [place] Doctor Unassigned, [place] [facility] 1.2.840.114 350.1.13.10 4.2.7.2.686 [id number] [facility] 2024-11-28 15:26:28 2024-11-28 15:26:[address] [facility] [id number] Topher Michel 2024-11-28 00:00:00 2024-11-28 00:00:00 Outpatient Visit SFA [id number] Topher Michel 2024-11-26 14:51:33 2024-11-26 14:51:[address] [facility] [id number] Topher Michel 2024-11-26 00:00:00 2024-11-26 00:00:[address] [facility] [id number] Topher Michel 2024-11-26 00:00:00 2024-11-26 00:00:[address] [facility] [id number] Topher Michel 2024-11-18 10:45:00 2024-11-18 11:30:14 Outpatient R JANKI [facility] [id number] [facility] 2024-11-18 10:45:00 2024-11-18 11:30:14 Routine Visit Janki Arce [facility] MANAGEMENT DIRECTOR [facility] & CHILD [facility] .84.114 350.1.13.10 4.2.7.2.686 [id number] 107 [id number] [facility] 2024-10-01 00:00:00 2024-11-01 18:16:56 Patient Secure Msg Janki Arce [facility] MANAGEMENT DIRECTOR [facility] & CHILD [facility] ..114 350.1.13.10 4.2.7.2.686 [id number] 107 [id number] [facility] 2024-10-31 00:00:00 2024-10-31 16:26:11 Telephone Janki Arce [facility] MANAGEMENT DIRECTOR [facility] & CHILD [facility] .840.114 350.1.13.10 4.2.7.2.686 [id number] 107 [id number] [facility] 2024-10-28 00:00:00 2024-10-28 16:00:47 Abstract CrescenciojohnnyJanki [facility] MANAGEMENT DIRECTOR [facility] & CHILD [facility] 1.2.840.114 350.1.13.10 4.2.7.2.686 [id number] 107 [id number] [facility] 2024-10-28 14:45:00 2024-10-28 15:58:58 Outpatient P GODFREY ISAAC [facility] [id number] [facility] 2024-10-28 14:45:00 2024-10-28 15:58:58 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, Godfrey Garrido [facility] MANAGEMENT DIRECTOR [facility] CHILD [facility] 1..840.114 350.1.13.10 4.2.7.2.686 [id number] [facility] 2024-10-21 08:00:00 2024-10-21 08:12:36 Outpatient R JANKI [facility] [id number] [facility] 2024-10-21 08:00:00 2024-10-21 08:12:36 Routine Visit Janki Arce [facility] MANAGEMENT DIRECTOR [facility]ILD [facility] 1..840.114 350.1.13.10 4.2.7.2.686 [id number] 107 [id number] [facility] 2024-10-03 14:52:13 2024-10-03 14:52:13 Outpatient SFA SFA [id number] Topher Michel 2024-10-03 00:00:00 2024-10-03 00:00:00 Outpatient Visit SFA [id number] Topher Michel 2024-09-27 23:30:00 2024-09-28 03:32:00 Emergency X NICHOLE HANSON SH[facility] [id number] [facility] 2024-09-27 23:30:00 2024-09-28 03:32:00 Emergency Nichole Hanson [facility] 1.2840.114 350.1.13.10 4.2.7.2.686 [id number] [facility] 2024-09-23 09:00:00 2024-09-23 11:02:03 Outpatient R JANKI [facility] [id number] [facility] 2024-09-23 09:00:00 2024-09-23 11:02:03 Initial Visit Janki Arce [facility] MANAGEMENT DIRECTOR [facility] & [facility] 1.2.840.114 350.1.13.10 4.2.7.2.686 [id number] 107 [id number] [facility] 2024-08-05 00:00:00 2024-08-05 08:34:31 Telephone Emery AndradeHTor [facility] 1.2.840.114 350.1.13.10 4.2.7.2.686 [id number] [facility] 2024-07-31 00:00:00 2024-08-01 09:28:58 Telephone Emery AndradeHTor [facility] 1.2.840.114 350.1.13.10 4.2.7.2.686 [id number] [facility] 2024-07-31 14:29:06 2024-07-31 14:29:[address] [facility] [id number] Topher Michel 2024-07-17 00:00:00 2024-07-17 10:59:12 Telephone Emery AndradeHTor [facility] 1.2.840.114 350.1.13.10 4.2.7.2.686 [id number] [facility] 2024-07-16 15:36:22 2024-07-16 23:59:00 Hospital Encounter Emery Andrade. [facility] 1.2.840.114 350.1.13.10 4.2.7.2.686 [id number] [facility] 2024-07-16 14:45:04 2024-07-16 15:35:00 [place] [id number] [facility] 2024-07-16 14:45:04 2024-07-16 15:35:00 [facility] 1.2.840.114 350.1.13.10 4.2.7.2.686 [id number] [facility] 2024-07-02 15:30:00 2024-07-02 16:13:20 Outpatient R LAN ANDRADEYINA [facility] [id number] [facility] 2024-07-02 15:30:00 2024-07-02 16:13:20 Office [facility] 1.2.840.114 350.1.13.10 4.2.7.2.686 [id number] [facility] 2024-07-01 19:09:00 2024-07-01 22:27:00 Emergency X MAHESH HAGAN WAKILI [facility] [id number] [facility] 2024-07-01 19:09:00 2024-07-01 22:27:00 Emergency Mahesh Hagan [facility] 1.2.840.114 350.1.13.10 4.2.7.2.686 [id number] [facility] 2024-06-13 15:50:48 2024-06-13 15:50:48 Outpatient SFA SFA [id number] Topher Michel 2024-06-13 00:00:00 2024-06-13 00:00:00 Outpatient Visit SFA [id number] Topher Michel 2024-04-10 17:40:32 2024-04-10 17:40:32 Outpatient SFA SFA [id number] Topher Michel 2024-04-10 00:00:00 2024-04-10 00:00:00 Outpatient Visit SFA [id number] Topher Michel 2024-04-09 14:37:11 2024-04-09 14:37:11 Outpatient SFA SFA [id number] Topher Michel 2024-04-09 00:00:00 2024-04-09 00:00:00 Outpatient Visit SFA [id number] Topher Michel 2024-02-28 17:18:39 2024-02-28 17:18:39 Outpatient SFA SFA [id number] Topher Michel 2024-02-28 00:00:00 2024-02-28 00:00:00 Outpatient Visit SFA [id number] Topher Michel 2024-02-18 17:40:26 2024-02-18 17:40:26 Outpatient SFA SFA [id number] Topher Michel 2024-02-18 00:00:00 2024-02-18 00:00:00 Outpatient Visit SFA [id number] Topher Michel 2024-02-13 13:27:48 2024-02-13 13:27:48 Outpatient SFA SFA [id number] Topher Michel 2024-02-07 15:15:55 2024-02-07 15:15:55 Outpatient SFA SFA [id number] Topher Michel 2024-02-07 00:00:00 2024-02-07 00:00:00 Outpatient Visit SFA [id number] Topher Michel 2024-02-05 08:29:37 2024-02-05 08:29:37 Outpatient SFA SFA [id number] Topher Michel 2024-01-22 08:32:22 2024-01-22 08:32:22 Outpatient SFA SFA [id number] Topher Michel 2024-01-08 09:32:35 2024-01-08 09:32:35 Outpatient SFA SFA [id number] Topher Michel 2024-01-02 09:37:32 2024-01-02 09:37:32 Outpatient SFA SFA [id number] Topher Michel 2023-12-13 17:44:05 2023-12-13 17:44:05 Outpatient SFA SFA [id number] Topher Michel 2023-12-05 17:04:46 2023-12-05 17:04:46 Outpatient SFA SFA [id number] Topher Michel 2023-12-04 08:23:44 2023-12-04 08:23:44 Outpatient SFA SFA [id number] Topher Michel 2023-11-21 16:58:22 2023-11-21 16:58:22 Outpatient SFA SFA [id number] Topher Michel 2023-11-19 16:07:09 2023-11-19 16:07:09 Outpatient SFA SFA [id number] Topher Michel 2023-11-13 09:34:42 2023-11-13 09:34:42 Outpatient SFA SFA [id number] Topher Michel 2023-10-30 15:22:15 2023-10-30 15:22:15 Outpatient SFA SFA [id number] Topher Michel 2023-10-23 15:52:48 2023-10-23 15:52:48 Outpatient SFA SFA [id number] Topher Michel 2023-10-05 16:07:32 2023-10-05 16:07:32 Outpatient SFA SFA [id number] Topher Michel 2023-10-04 10:56:19 2023-10-04 10:56:19 Outpatient SFA SFA [id number] Topher Michel 2023-10-02 14:46:17 2023-10-02 14:46:17 Outpatient SFA SFA [id number] Topher Michel 2023-10-01 15:39:09 2023-10-01 15:39:09 Outpatient SFA SFA [id number] Topher Michel 2023-09-18 16:54:27 2023-09-18 16:54:27 Outpatient SFA SFA [id number] Topher Michel 2023-09-05 16:11:06 2023-09-05 16:11:06 Outpatient SFA SFA [id number] Topher Michel 2023-09-03 15:43:11 2023-09-03 15:43:11 Outpatient SFA SFA [id number] Topher Michel 2023-08-17 15:16:29 2023-08-17 15:16:29 Outpatient SFA SFA [id number] Topher Michel 2023-08-09 15:55:19 2023-08-09 15:55:19 Outpatient SFA SFA [id number] Topher Michel 2023-08-02 15:56:04 2023-08-02 15:56:04 Outpatient SFA SFA [id number] Topher Michel 2023-07-31 13:23:48 2023-07-31 13:23:48 Outpatient SFA SFA [id number] Topher Michel 2023-07-28 14:23:00 2023-07-28 14:23:00 Outpatient SFA SFA [id number] Topher Michel 2023-07-17 15:02:03 2023-07-17 15:02:03 Outpatient SFA SFA [id number] Topher Michel 2023-03-26 14:03:12 2023-03-26 14:03:12 Outpatient [facility] [id number] Topher Michel 2023-03-22 11:53:47 2023-03-22 11:53:47 Outpatient [facility] [id number] Topher Michel 2023-02-20 16:37:03 2023-02-20 16:37:03 Outpatient [facility] [id number] Topher Michel 2023-02-15 15:14:01 2023-02-15 15:14:01 Outpatient [place] [id number] Topher Michel 2023-01-16 08:47:40 2023-01-16 08:47:40 Outpatient [place] [id number] Topher Michel 2022-08-14 11:15:06 2022-08-14 11:15:06 Outpatient [place] [id number] Topher Michel 2022-01-13 18:49:00 2022-01-13 21:18:00 Emergency [place], Luisopher [facility] [id number] [facility] 2022-01-13 18:49:00 2022-01-13 21:18:00 Emergency X R[facility], [facility] ERT [id number] [facility] Results Test Description Test Time Test Comments Results Result Co mments Source [facility] [id number] 17:54:28* Test Item Value Reference Range Interpretation Comme nts BASE EXCESS, CORD (test code = 9859152953) -5.4 mEq/L QUES AC PH, CORD (test code = 4507749092) 7.23 7.18-7.38 PC02, CORD (test code = 7371786996) 56 32-66 PO2, CORD (test code = 6670457390) 22 10-30 BICARBONATE, CORD (test code = 2227300819) 23 17-27 [facility] [id number] 17:54:12* Test Item Value Reference Range Interpretation Comme nts VENOUS BASE EXCESS, CORD (te st code = 7434095811) -5.1 mEq/L VENOUS PH, CORD (test code = 4005264851) 7.34 7.25-7.45 VENOUS PC02, CORD (test code = 8866501276) 38 27-49 VENOUS PO2, CORD (test code = 8366983799) 28 17-41 VENOUS BICARBONATE, CORD (te st code = 2154194588) 20 12-29 QUES [facility] IgG/[id number] 13:25:39* Test Item Value Reference Range Interpretation Comme nts Syphilis IgG/IgM (test code = 14904-6) Nonreactive Nonreactive Syphilis Serology Interpretation (test code = 34825-5) No serologic evidence of syphilis. If recent exposure is suspected, retest in 2 to 4 weeks. EDGARD (test code = EDGARD) ? [facility] [id number] 11:37:00 Tejas Schaefer MD ? ? 05/25/2025 ?6:37 AM Central Neuraxial Block Date/Time: 05/25/2025 6:37 AM Performed by: Tejas Schaefer MDAuthorized by: Jeri Cottrell MD ?Patient Location: OBReason for Block: OB request, Patient request, Labor analgesia, Surgical anesthesia and Post-op pain managementStaff: ?A nesthesiologist: Jeri Cottrell MD ?Resident/PUTTER IN: Tejas Schaefer MD ?Performed by: resident/CRNAPreanesthetic Checklist: patient identified, IV checked, risks and benefits explained, monitors and equipment checked, timeout performed, pre- op evaluation, site marked and anesthesia consentProcedure:?Type of Neuraxial: Epidural ?Epidural Description: 1st attempt ? Sterility Prep cap, drape, gloves, hand hygiene and mask ?Patient Position: sitting ?Prep: Betadine and patient draped ? ?Monitoring:heart rate, continuous pulse ox, heart rate / toco and NIBP ?Location: lumbar (1-5) ?Lumbar: L3-L4 ?Approach: midline ? ?Technique: catheter and BRITTNEY saline ?Guidance with: landmark technique}Epidural/Spinal [place] and/or Catheter: ?Epidural/Spinal Kit: BBraun ?Needle Type: Tuohy ?Needle Gauge: 17 G ?Needle Length: 3.5 in (8.89 cm) ?Needle Insertion Depth: 5 ?Catheter Type: multiport ? ?Catheter Size: 19 G ? ?Catheter at Skin Depth: 10 ?Number of Attempts: 1 ?Test Dose: negative and lidocaine 1.5% with epinephrine 1-to-200,000 ? ?Dose: 3 cc ? ?Catheter Securement Method: surgical tape and TegadermAssessment: ?Block Outcome: a full evaluation is pending, patient comfortable and patienttolerated procedure well ? ?Procedure Assessment: patient tolerated procedure well with no complicationsNotes: ? Patient identified; pre- procedure verification.Patient prepped and draped in standard sterile fashion using betadine x 3Subcutaneous infiltration with 1% Lidocaine BRITTNEY at 5 cm; catheter secured at 10 cm with mastisol, tegaderm x2 and 3-inch clear tape.Aspiration test negative x 3Test dose negativePatient tolerated procedure well with no immediate complications Epidural expectations; PCEA explained and fall precautions given.[facility]HIV [facility]2 Ag-Ab with [id number] 01:23:05* Test Item Value Reference Range Interpretation Comme nts HIV Semi-quantitative (test code = 02597-1) 0.09 Negative EDGARD (test code = EDGARD) Non-reactive for HIV-1 antigen and HIV-1/HIV-2 antibodies. ?No laboratory evidence of HIV infection. ?Repeat in 2-4 weeks if acute HIV infection is suspected. [facility] HospitalHepatitis B Surface [id number] 01:13:47 * Test Item Value Reference Range Interpretation Comme nts HBsAg Semi-Quantitative (holden t code = 5195-3) 0.08 Negative [facility] HospitalCbc with [id number] 00:17:04* Test Item Value Reference Range Interpretation Comme nts WBC (test code = 6690-2) 9.92 4.30-11.10 RBC (test code = 789-8) 4.97 3.93-5.25 HGB (test code = 718-7) 10.9 g/dL 11.6-15.0 L HCT (test code = 4544-3) 34 % 35.7-45.2 L MCV (test code = 787-2) 68.4 fL 80.6-95.5 L MCH (test code = 785-6) 21.9 pg 25.9-32.8 L MCHC (test code = 786-4) 32.1 g/dL 31.6-35.1 RDW-SD (test code = 69357-3) 37.6 fL 39.0-49.9 L RDW-CV (test code = 788-0) 15.7 % 12.0-15.5 H PLT (test code = 777-3) 354 166-358 MPV (test code = 33288-6) 10.3 fL 9.5-12.9 NRBC/100 WBC (test code = 3470582372) 0.4 0.0-10.0 NRBC x10^3 (test code = 0373055425) 0.04 See_Comment [Automated messa ge] The system which generated this result transmitted reference range: 10*3/?L. The reference range was not used to interpret this result as normal/abnormal. GRAN MAT (NEUT) % (test code = 770-8) 68.8 % IMM GRAN % (test code = 4698314318) 0.9 % LYMPH % (test code = 736-9) 20.6 % MONO % (test code = 5905-5) 8.2 % EOS % (test code = 713-8) 1 % BASO % (test code = 706-2) 0.5 % GRAN MAT x10^3(ANC) (test code = 3706378697) 6.83 10*3/uL 1.88-7.09 IMM GRAN x10^3 (test code = 1755133740) 0.09 10*3/uL 0.00-0.06 H LYMPH x10^3 (test code = 731-0) 2.04 10*3/uL 1.32-3.29 MONO x10^3 (test code = 742-7) 0.81 10*3/uL 0.33-0.92 EOS x10^3 (test code = 711-2) 0.1 10*3/uL 0.03-0.39 BASO x10^3 (test code = 704-7) 0.05 10*3/uL 0.01-0.07 Lab Interpretation (test code = 12949-4) Abnormal [facility] HospitalType and Screen - STAT [id number] 00:15:00* Test Item Value Reference Range Interpretation Comme nts ABO & RH (test code = 20) B POSITIVE IAT (test code = 1185) Negative [facility] HospitalPOCT URINALYSIS W SPECIFIC [id number] 21:08:00* Test Item Value Reference Range Interpretation Comme nts POCT U SP GRAV (test code = 3255) . 1.005-1.025 POCT PH U (test code = 3254) . 5-8 POCT U LEUK EST (test code = 3263) . Negative - Negative POCT U NIT (test [...] POCT U APPEAR (test code = 3267) [facility] Urinalysis Glucose & [id number] 20:19:00* Test Item Value Reference Range Interpretation Comme nts POCT U PROT (test code = 3259) trace Negative - Negat sarbjit POCT U GLU (test code = 3256) negative Negative - Negati ve [facility] HospitalPOCT URINALYSIS W SPECIFIC [id number] 21:52:00* Test Item Value Reference Range Interpretation Comme [...] POCT U GLU (test code = 3256) normal Negative - Negati ve POCT U KETONE (test code = 3258) 2+ Negative - Neg ative POCT U UROBILI (test code = 3260) . 0.2-1 POCT U BILI (test code = 3261) . Negative - Negat sarbjit POCT U BLD (test code = 3257) neg Negative - Negati ve POCT U COLOR (test code = 3266) . POCT U APPEAR (test code = 3267) . [facility] HospitalCB (INCLUDES DIFF/PLT)2025-03-12 00:00:00* Test Item Value Reference Range Interpretation Comme nts WHITE BLOOD CELL COUNT (test code = 6690-2) 10.9 Thousand/uL RED BLOOD CELL COUNT (test code = 789-8) 5.19 Million/uL HEMOGLOBIN (test code = 718-7) 12.1 g/dL HEMATOCRIT (test code = 4544-3) 38.6 % MCV (test code = 787-2) 74.4 fL MCH (test code = 785-6) 23.3 pg MCHC (test code = 786-4) 31.3 g/dL RDW (test code = 788-0) 13.9 % PLATELET COUNT (test code = 777-3) 404 Thousand/uL MPV (test code = 776-5) 9.2 fL ABSOLUTE NEUTROPHILS (test code = 751-8) 8415 cells/uL ABSOLUTE BAND NEUTROPHILS (test code = 28952-2) DNR cells/uL ABSOLUTE METAMYELOCYTES (test code = 11854-5) DNR cells/uL ABSOLUTE MYELOCYTES (test code = 70910-6) DNR cells/uL ABSOLUTE PROMYELOCYTES (test code = 21747-2) DNR cells/uL ABSOLUTE LYMPHOCYTES (test code = 731-0) 1788 cells/uL ABSOLUTE MONOCYTES (test code = 742-7) 578 cells/uL ABSOLUTE EOSINOPHILS (test code = 711-2) 98 cells/uL ABSOLUTE BASOPHILS (test code = 704-7) 22 cells/uL ABSOLUTE BLASTS (test code = 65972-0) DNR cells/uL ABSOLUTE NUCLEATED RBC (test code = 30578-2) DNR cells/uL NEUTROPHILS (test code = 770-8) 77.2 % BAND NEUTROPHILS (test code = 764-1) DNR % METAMYELOCYTES (test code = 740-1) DNR % MYELOCYTES (test code = 749-2) DNR % PROMYELOCYTES (test code = 783-1) DNR % LYMPHOCYTES (test code = 736-9) 16.4 % REACTIVE LYMPHOCYTES (test code = 68703-9) DNR % MONOCYTES (test code = 5905-5) 5.3 % EOSINOPHILS (test code = 713-8) 0.9 % BASOPHILS (test code = 706-2) 0.2 % BLASTS (test code = 709-6) DNR % NUCLEATED RBC (test code = 89433-9) DNR /100WBC COMMENT(S) (test code = 8251-1) DNR Topher MichelCOMPREHENSIVE METABOLIC [id number] 00:00:00* Test Item Value Reference Range Interpretation Comme nts GLUCOSE (test code = 2345-7) 67 mg/dL UREA NITROGEN (BUN) (test code = 3094-0) 6 mg/dL CREATININE (test code = 2160-0) 0.52 mg/dL EGFR (test code = 31594-3) 134 mL/min/1.73m2 BUN/CREATININE RATIO (test code = 3097-3) 12 (calc) SODIUM (test code = 2951-2) 135 mmol/L POTASSIUM (test code = 2823-3) 3.8 mmol/L CHLORIDE (test code = 2075-0) 103 mmol/L CARBON DIOXIDE (test code = 8-9) 19 mmol/L CALCIUM (test code = 47856-6) 8.7 mg/dL PROTEIN, TOTAL (test code = 2885-2) 7.0 g/dL ALBUMIN (test code = 1751-7) 3.9 g/dL GLOBULIN (test code = 32616-3) 3.1 g/dL(calc) ALBUMIN/GLOBULIN RATIO (test code = 1759-0) 1.3 (calc) BILIRUBIN, TOTAL (test code = 1975-2) 0.4 mg/dL ALKALINE PHOSPHATASE (test code = 6768-6) 84 U/L AST (test code = 1920-8) 18 U/L ALT (test code = 1742-6) 8 U/L Topher MichelHEMOGLOBIN [id number] 00:00:00* Test Item Value Reference Range Interpretation Comme nts HEMOGLOBIN A1c (test code = 4548-4) 5.5 % Topher MichelLIPID [id number] 00:00:00* Test Item Value Reference Range Interpretation Comme nts CHOLESTEROL, TOTAL (test cod e = 2093-3) 201 mg/dL HDL CHOLESTEROL (test code = 2085-9) 64 mg/dL TRIGLYCERIDES (test code = 2571-8) 142 mg/dL LDL-CHOLESTEROL (test code = 94716-7) 112 mg/dL(calc) CHOL/HDLC RATIO (test code = 9830-1) 3.1 (calc) NON HDL CHOLESTEROL (test code = 37076-6) 137 mg/dL(calc) Topher MichelHIV 1/2 ANTIGEN/ANTIBODY,FOURTH GENERATION [id number] 00:00:00* Test Item Value Reference Range Interpretation Comme nts HIV AG/AB, 4TH GEN (test cod e = 01502-5) NON-REACTIVE Topher MichelHEPATITIS PANEL, [id number] 00:00:00* Test Item Value Reference Range Interpretation Comme nts HEPATITIS A AB, TOTAL (test code = 96423-8) NON-REACTIVE HEPATITIS B SURFACE ANTIBODY QL (test code = 86167-5) NON-REACTIVE HEPATITIS B SURFACE ANTIGEN (test code = 5196-1) NON-REACTIVE CONFIRMATION (test code = 7905-3) DNR HEPATITIS B CORE AB TOTAL (t est code = 45540-4) NON-REACTIVE HEPATITIS C ANTIBODY (test c ode = 43379-8) NON-REACTIVE Topher MichelCULTURE, URINE, [id number] 00:00:00* Test Item Value Reference Range Interpretation Comme nts CULTURE, URINE, ROUTINE (holden t code = 630-4) SEE NOTE Topher Aguillon AustinRespiratory [id number] 00:00:00* Test Item Value Reference Range Interpretation Comme nts STAPHYLOCOCCUS AUREUS (test code = 31771-6S) Negative STREPTOCOCCUS PNEUMONIAE (te st code = 17271-9) Negative STREPTOCOCCUS PYOGENES (GROU P A) (test code = 815633-7) Negative ADENOVIRUS (test code = 02679-9) Negative SARS-COV-2 (test code = 86481-2) Negative ENTEROVIRUS D68 (test code = 38847-3) Negative PARAINFLUENZA 1-3 (test code = ?10300-0) Negative RHINOVIRUS/ENTEROVIRUS (test code = 7993-9) Negative CORONAVIRUS (229E) (test cod e = 33069-8) Negative CORONAVIRUS (HKU1) (test cod e = 10513-5) Negative CORONAVIRUS (NL63) (test cod e = 34649-1) Negative CORONAVIRUS (OC43) (test cod e = 28214-3) Negative HUMAN METAPNEUMOVIRUS A/B (t est code = 44396-6) Positive INFLUENZA A (test code = 51421-9) Negative INFLUENZA B (test code = 72884-8) Negative KLEBSIELLA PNEUMONIAE (test code = 78698-6D) Negative RSV A/RSV B (test code = 21593-7M) Negative BORDETELLA PARAPERTUSSIS (te st code = 35050-3) Negative BORDETELLA PERTUSSIS (test c ode = 37799-0) Negative CHLAMYDIA PNEUMONIAE (test c ode = 11368-6) Negative HAEMOPHILUS INFLUENZAE (test code = 79241-2) Negative MORAXELLA CATARRHALIS (test code = 64211-2) Negative MYCOPLASMA PNEUMONIAE (test code = 69905-2) Negative Topher F AustinRespiratory [id number] 00:00:00* Test Item Value Reference Range Interpretation Comme nts STAPHYLOCOCCUS AUREUS (test code = 55995-8D) Negative STREPTOCOCCUS PNEUMONIAE (te st code = 52289-0) Negative STREPTOCOCCUS PYOGENES (GROU P A) (test code = 680865-0) Negative ADENOVIRUS (test code = 54496-1) Negative SARS-COV-2 (test code = 18605-2) Negative ENTEROVIRUS D68 (test code = 88109-5) Negative PARAINFLUENZA 1-3 (test code = ?74082-0) Negative RHINOVIRUS/ENTEROVIRUS (test code = 7993-9) Negative CORONAVIRUS (229E) (test cod e = 36855-4) Negative CORONAVIRUS (HKU1) (test cod e = 25146-5) Negative CORONAVIRUS (NL63) (test cod e = 44977-4) Negative CORONAVIRUS (OC43) (test cod e = 16313-5) Negative HUMAN METAPNEUMOVIRUS A/B (t est code = 26529-1) Positive INFLUENZA A (test code = 11892-0) Negative INFLUENZA B (test code = 79954-9) Negative KLEBSIELLA PNEUMONIAE (test code = 23487-8W) Negative RSV A/RSV B (test code = 60521-1Y) Negative BORDETELLA PARAPERTUSSIS (te st code = 46485-8) Negative BORDETELLA PERTUSSIS (test c ode = 87330-3) Negative CHLAMYDIA PNEUMONIAE (test c ode = 73753-0) Negative HAEMOPHILUS INFLUENZAE (test code = 07699-3) Negative MORAXELLA CATARRHALIS (test code = 94197-8) Negative MYCOPLASMA PNEUMONIAE (test code = 00325-6) Negative Topher F [facility] SARS-COV-2 ANTIGEN (BINAX NOW)2025-03-03 17:04:00* Test Item Value Reference Range Interpretation Comme nts POCT SARS-COV-2 ANTIGEN (test code = 15582-1) Not Detected Not Detected, See Comment On board controls acceptable with C Line (test code = 3574) Yes [facility] Molecular [id number] 16:57:30* Test Item Value Reference Range Interpretation Comme nts POCT Molecular FluA (test co de = 93244-4) Negative Negative POCT Molecular FluB (test co de = 85975-7) Negative Negative Lab Interpretation (test cod e = 41572-2) Normal [facility] MOLECULAR [id number] 16:52:24* Test Item Value Reference Range Interpretation Comme nts POCT Molecular Strep (test c ode = 23701-6) Negative Negative Lab Interpretation (test cod e = 78568-2) Normal [facility] URINALYSIS W SPECIFIC [id number] 16:24:00* Test Item Value Reference Range Interpretation Comme [...] U APPEAR (test code = 3267) . [facility] HospitalCULTURE, URINE, [id number] 00:00:00* Test Item Value Reference Range Interpretation Comme nts CULTURE, URINE, ROUTINE (holden t code = 630-4) SEE NOTE Topher Aguillon AustinCULTURE, URINE, [id number] 00:00:00* Test Item Value Reference Range Interpretation Comme nts CULTURE, URINE, ROUTINE (holden t code = 630-4) SEE NOTE Topher Aguillon AustinCULTURE, URINE, [id number] 00:00:00* Test Item Value Reference Range Interpretation Comme nts CULTURE, URINE, ROUTINE (holden t code = 630-4) SEE NOTE Topher Aguillon [id number] 00:00:00* Test Item Value Reference Range Interpretation Comme nts CHLAMYDIA TRACHOMATIS (test code = 70766-4) Negative ESCHERICHIA COLI (test code = 15550-5) Negative HAEMOPHILUS DUCREYI (test co de = 01022-9) Negative MEGASPHAERA TYPE 1 (test cod e = 92918-5) Negative MEGASPHAERA TYPE 2 (test cod e = 16988-1H) Negative NEISSERIA GONORRHOEAE (test code = 05164-9) Negative PREVOTELLA BIVIA (test code = No code9) Positive TREPONEMA PALLIDUM (test cod e = 71697-9) Negative ATOPOBIUM VAGINAE (test code = 31205-6) Negative ENTEROCOCCUS FAECALIS (test code = 45296-9) Negative GARDNERELLA VAGINALIS (test code = 35651-0) Negative LACTOBACILLUS CRISPATUS (holden t code = 98452-8F) Negative LACTOBACILLUS GASSERI (test code = 49678-9) Negative LACTOBACILLUS INERS (test co de = 33345-4D) Positive LACTOBACILLUS JENSENII (test code = 51842-9N) Positive MOBILUNCUS CURTISII (test co de = 97841-8D) Negative MOBILUNCUS MULIERIS (test co de = 80436-9) Negative STAPHYLOCOCCUS AUREUS (test code = 66006-5) Negative STREPTOCOCCUS AGALACTIAE (te st code = 33943-6) Negative MYCOPLASMA GENITALIUM (test code = 25365-1) Negative MYCOPLASMA HOMINIS (test cod e = 20473-9W) Positive UREAPLASMA UREALYTICUM (test code = 30134-7O) Positive TRICHOMONAS VAGINALIS (test code = 20822TB) Negative ALTAF ALBICANS (test code = 55768-6) Negative ALTAF AURIS (test code = 88954-1) Negative ALTAF GLABRATA (test code = 99046-8) Positive ALTAF KRUSEI (test code = 28327-3) Negative ALTAF LUSITANIAE (test cod e = 99378-8) Negative ALTAF PARAPSILOSIS (test c ode = 36780-2) Negative ALTAF TROPICALIS (test cod e = 38514-6) Negative BACTEROIDES FRAGILIS (test c ode = 941243-9) Negative BVAB-2 (test code = 61874-1) Negative HSV-1 (HERPES SIMPLEX) (test code = 70936-6) Negative HSV-2 (HERPES SIMPLEX) (test code = P0120) Negative Topher MichelUscnabHodfv0880-02-23 00:00:00* Test Item Value Reference Range Interpretation Comme nts CHLAMYDIA TRACHOMATIS (test code = 81298-0) Negative ESCHERICHIA COLI (test code = 67916-1) Negative HAEMOPHILUS DUCREYI (test co de = 87262-1) Negative MEGASPHAERA TYPE 1 (test cod e = 62511-0) Negative MEGASPHAERA TYPE 2 (test cod e = 69848-2Q) Negative NEISSERIA GONORRHOEAE (test code = 88915-0) Negative PREVOTELLA BIVIA (test code = No code9) Positive TREPONEMA PALLIDUM (test cod e = 20260-8) Negative ATOPOBIUM VAGINAE (test code = 08398-6) Negative ENTEROCOCCUS FAECALIS (test code = 49337-5) Negative GARDNERELLA VAGINALIS (test code = 76418-8) Negative LACTOBACILLUS CRISPATUS (holden t code = 97333-0T) Negative LACTOBACILLUS GASSERI (test code = 53320-1) Negative LACTOBACILLUS INERS (test co de = 25183-2Y) Positive LACTOBACILLUS JENSENII (test code = 89167-1Y) Positive MOBILUNCUS CURTISII (test co de = 80043-8Q) Negative MOBILUNCUS MULIERIS (test co de = 34654-5) Negative STAPHYLOCOCCUS AUREUS (test code = 12675-3) Negative STREPTOCOCCUS AGALACTIAE (te st code = 97422-9) Negative MYCOPLASMA GENITALIUM (test code = 45825-7) Negative MYCOPLASMA HOMINIS (test cod e = 89982-5L) Positive UREAPLASMA UREALYTICUM (test code = 93634-4P) Positive TRICHOMONAS VAGINALIS (test code = 35189AR) Negative ALTAF ALBICANS (test code = 68407-1) Negative ALTAF AURIS (test code = 81316-0) Negative ALTAF GLABRATA (test code = 23222-1) Positive ALTAF KRUSEI (test code = 80221-9) Negative ALTAF LUSITANIAE (test cod e = 30518-3) Negative ALTAF PARAPSILOSIS (test c ode = 52528-6) Negative ALTAF TROPICALIS (test cod e = 15946-4) Negative BACTEROIDES FRAGILIS (test c ode = 700912-9) Negative BVAB-2 (test code = 81292-5) Negative HSV-1 (HERPES SIMPLEX) (test code = 91981-5) Negative HSV-2 (HERPES SIMPLEX) (test code = P0120) Negative Topher MichelPfpbudNmusn3103-25-78 00:00:00* Test Item Value Reference Range Interpretation Comme nts CHLAMYDIA TRACHOMATIS (test code = 17342-9) Negative ESCHERICHIA COLI (test code = 95849-0) Negative HAEMOPHILUS DUCREYI (test co de = 60473-7) Negative MEGASPHAERA TYPE 1 (test cod e = 84439-7) Negative MEGASPHAERA TYPE 2 (test cod e = 10015-8B) Negative NEISSERIA GONORRHOEAE (test code = 61662-3) Negative PREVOTELLA BIVIA (test code = No code9) Positive TREPONEMA PALLIDUM (test cod e = 41320-0) Negative ATOPOBIUM VAGINAE (test code = 08489-9) Negative ENTEROCOCCUS FAECALIS (test code = 48906-2) Negative GARDNERELLA VAGINALIS (test code = 22583-8) Negative LACTOBACILLUS CRISPATUS (holden t code = 17453-0W) Negative LACTOBACILLUS GASSERI (test code = 94369-5) Negative LACTOBACILLUS INERS (test co de = 08520-3F) Positive LACTOBACILLUS JENSENII (test code = 27175-4Q) Positive MOBILUNCUS CURTISII (test co de = 95284-4R) Negative MOBILUNCUS MULIERIS (test co de = 66731-0) Negative STAPHYLOCOCCUS AUREUS (test code = 88191-3) Negative STREPTOCOCCUS AGALACTIAE (te st code = 14800-2) Negative MYCOPLASMA GENITALIUM (test code = 37776-8) Negative MYCOPLASMA HOMINIS (test cod e = 51136-7N) Positive UREAPLASMA UREALYTICUM (test code = 77801-3N) Positive TRICHOMONAS VAGINALIS (test code = 75668AG) Negative ALTAF ALBICANS (test code = 80794-0) Negative ALTAF AURIS (test code = 29052-4) Negative ALTAF GLABRATA (test code = 97643-9) Positive ALTAF KRUSEI (test code = 16486-7) Negative ALTAF LUSITANIAE (test cod e = 51800-7) Negative ALTAF PARAPSILOSIS (test c ode = 37437-9) Negative ALTAF TROPICALIS (test cod e = 78397-8) Negative BACTEROIDES FRAGILIS (test c ode = 147625-6) Negative BVAB-2 (test code = 06786-8) Negative HSV-1 (HERPES SIMPLEX) (test code = 14417-7) Negative HSV-2 (HERPES SIMPLEX) (test code = P0120) Negative Topher F AustinPOCT URINALYSIS W SPECIFIC [id number] 19:20:00* Test Item Value Reference Range Interpretation Comme [...] U APPEAR (test code = 3267) . [facility] HospitalTROPONIN [id number] 22:36:02* Test Item Value Reference Range Interpretation Comme nts TROPONIN I (test code = 8750716412) 0.003 ng/mL <=0.034 EDGARD (test code = EDGARD) Reference (Normal) Range (defined by the 99th percentile reference limit): <= 0.034 ng/mL Note: Cardiac troponin begins to rise 3-4 hours after the onset of ischemia. Repeat in 4-6 hours if the sample was drawn within 3-4 hours of the onset of the symptom and found normal. Diagnosis of myocardial injury is made with acute changes in cTn concentrations with at least one serial sample above the 99th percentile upper reference limit (URL), taken together with the patient's clinical presentation. Biotin has been reported to cause a negative bias, interpret results relative to patient's use of biotin. Lab Interpretation (test code = 35809-9) Normal [facility]. METABOLIC PANEL (68441)2025-02-06 22:27:01* Test Item Value Reference Range Interpretation Comme nts NA (test code = 6516418371) 135 mmol/L 135-145 K (test code = 6897042104) 3.2 mmol/L 3.5-5.0 L CL (test code = 0526360033) 106 mmol/L 98-108 CO2 TOTAL (test code = 0597917965) 20 mmol/L 23-31 L AGAP (test code = 1873541330) 9 2-16 BUN (test code = 2235145129) 8 mg/dL 7-23 GLUCOSE (test code = 8547994924) 81 mg/dL 70-110 CREATININE (test code = 2160-0) 0.53 mg/dL 0.50-1.04 TOTAL BILI (test code = 7601667546) 0.6 mg/dL 0.1-1.1 CALCIUM (test code = 2705146265) 8.9 mg/dL 8.6-10.6 T PROTEIN (test code = 7373846166) 7.6 g/dL 6.3-8.2 ALBUMIN (test code = 6643796013) 4.2 g/dL 3.5-5.0 ALK PHOS (test code = 0865256837) 59 U/L 34-122 ALTv (test code = 1742-6) 11 U/L 5-35 AST(SGOT) (test code = 1462108836) 22 U/L 13-40 eGFR (test code = 58520-2) 133.5 mL/min/1.73m2 CKD-EPI eGFR (2020). Assuming creatinine has been stable day-to-day for at least three months, the eGFR indicates Category G1 (>= 90 mL/min/1.73 m2) Lab Interpretation (test code = 35629-8) Abnormal [facility] WITH [id number] 21:38:05* Test Item Value Reference Range Interpretation Comme nts WBC (test code = 6690-2) 9.46 4.30-11.10 RBC (test code = 789-8) 4.76 3.93-5.25 HGB (test code = 718-7) 11.4 g/dL 11.6-15.0 L HCT (test code = 4544-3) 35.6 % 35.7-45.2 L MCV (test code = 787-2) 74.8 fL 80.6-95.5 L MCH (test code = 785-6) 23.9 pg 25.9-32.8 L MCHC (test code = 786-4) 32 g/dL 31.6-35.1 RDW-SD (test code = 17559-8) 39.1 fL 39.0-49.9 RDW-CV (test code = 788-0) 14.7 % 12.0-15.5 PLT (test code = 777-3) 362 166-358 H MPV (test code = 78870-0) 8.8 fL 9.5-12.9 L NRBC/100 WBC (test code = 1595766857) 0 0.0-10.0 NRBC x10^3 (test code = 3376161918) See_Comment [Automated messa ge] The system which generated this result transmitted reference range: 10*3/?L. The reference range was not used to interpret this result as normal/abnormal. GRAN MAT (NEUT) % (test code = 770-8) 78.2 % IMM GRAN % (test code = 5950243949) 0.4 % LYMPH % (test code = 736-9) 13.7 % MONO % (test code = 5905-5) 7 % EOS % (test code = 713-8) 0.4 % BASO % (test code = 706-2) 0.3 % GRAN MAT x10^3(ANC) (test code = 7837610301) 7.39 10*3/uL 1.88-7.09 H IMM GRAN x10^3 (test code = 1094102858) 0.04 10*3/uL 0.00-0.06 LYMPH x10^3 (test code = 731-0) 1.3 10*3/uL 1.32-3.29 L MONO x10^3 (test code = 742-7) 0.66 10*3/uL 0.33-0.92 EOS x10^3 (test code = 711-2) 0.04 10*3/uL 0.03-0.39 BASO x10^3 (test code = 704-7) 0.03 10*3/uL 0.01-0.07 Lab Interpretation (test code = 71125-2) Abnormal [facility] URINALYSIS W SPECIFIC [id number] 20:31:00* Test Item Value Reference Range Interpretation Comme [...] U APPEAR (test code = 3267) . [facility] [id number] 00:00:00* Test Item Value Reference Range Interpretation Comme nts ACINETOBACTER BAUMANNII (holden t code = 20120-1) Negative KLEBSIELLA AEROGENES (test c ode = 40595-9) Negative CITROBACTER FREUNDII (test c ode = 44601-7) Negative ENTEROBACTER CLOACAE (test c ode = 15974DHO) Negative ESCHERICHIA COLI (test code = 75690-7) Negative KLEBSIELLA OXYTOCA (test cod e = 53807-0) Negative KLEBSIELLA PNEUMONIAE (test code = 72594-2) Negative MORGANELLA MORGANII (test co de = 72264-9) Negative MYCOPLASMA HOMINIS (test cod e = 13811-9) Negative PROTEUS MIRABILIS (test code = 01543-8) Negative PROTEUS VULGARIS (test code = 178360-1) Negative PROVIDENCIA STUARTII (test c ode = 99365-5) Negative PSEUDOMONAS AERUGINOSA (test code = 57334-0) Negative SERRATIA MARCESCENS (test co de = 37893-0) Negative UREAPLASMA UREALYTICUM (test code = 80978-4) Negative ENTEROCOCCUS FAECALIS (test code = 23596-8) Negative ENTEROCOCCUS FAECIUM (test c ode = 45898-6) Negative STAPHYLOCOCCUS AUREUS (test code = 24164-0) Negative STAPHYLOCOCCUS SAPROPHYTICUS (test code = 23481-5) Negative STREPTOCOCCUS AGALACTIAE (te st code = 88833-1) Negative ALTAF ALBICANS (test code = 79527-6) Negative ALTAF GLABRATA (test code = no code1) Negative ALTAF PARAPSILOSIS (test c ode = no code3) Negative ALTAF TROPICALIS (test cod e = No code) Negative Topher Andrade /ABR [id number] 00:00:00* Test Item Value Reference Range Interpretation Comme nts ACINETOBACTER BAUMANNII (holden t code = 05414-9) Negative KLEBSIELLA AEROGENES (test c ode = 52641-9) Negative CITROBACTER FREUNDII (test c ode = 22426-5) Negative ENTEROBACTER CLOACAE (test c ode = 33561AHK) Negative ESCHERICHIA COLI (test code = 95932-5) Negative KLEBSIELLA OXYTOCA (test cod e = 93078-1) Negative KLEBSIELLA PNEUMONIAE (test code = 87398-5) Negative MORGANELLA MORGANII (test co de = 71912-8) Negative MYCOPLASMA HOMINIS (test cod e = 64574-7) Negative PROTEUS MIRABILIS (test code = 57478-9) Negative PROTEUS VULGARIS (test code = 133931-7) Negative PROVIDENCIA STUARTII (test c ode = 09818-6) Negative PSEUDOMONAS AERUGINOSA (test code = 54413-5) Negative SERRATIA MARCESCENS (test co de = 03560-1) Negative UREAPLASMA UREALYTICUM (test code = 36789-0) Negative ENTEROCOCCUS FAECALIS (test code = 38578-2) Negative ENTEROCOCCUS FAECIUM (test c ode = 09981-1) Negative STAPHYLOCOCCUS AUREUS (test code = 98955-9) Negative STAPHYLOCOCCUS SAPROPHYTICUS (test code = 28199-9) Negative STREPTOCOCCUS AGALACTIAE (te st code = 94507-2) Negative ALTAF ALBICANS (test code = 46197-3) Negative ALTAF GLABRATA (test code = no code1) Negative ALTAF PARAPSILOSIS (test c ode = no code3) Negative ALTAF TROPICALIS (test cod e = No code) Negative [facility] [id number] 00:00:00* Test Item Value Reference Range Interpretation Comme nts ACINETOBACTER BAUMANNII (holden t code = 75205-9) Negative KLEBSIELLA AEROGENES (test c ode = 84638-2) Negative CITROBACTER FREUNDII (test c ode = 64427-5) Negative ENTEROBACTER CLOACAE (test c ode = 51775XXJ) Negative ESCHERICHIA COLI (test code = 61908-7) Negative KLEBSIELLA OXYTOCA (test cod e = 10111-4) Negative KLEBSIELLA PNEUMONIAE (test code = 03706-7) Negative MORGANELLA MORGANII (test co de = 07125-3) Negative MYCOPLASMA HOMINIS (test cod e = 70568-7) Negative PROTEUS MIRABILIS (test code = 21594-8) Negative PROTEUS VULGARIS (test code = 587540-8) Negative PROVIDENCIA STUARTII (test c ode = 90643-5) Negative PSEUDOMONAS AERUGINOSA (test code = 45041-1) Negative SERRATIA MARCESCENS (test co de = 81261-1) Negative UREAPLASMA UREALYTICUM (test code = 83283-0) Negative ENTEROCOCCUS FAECALIS (test code = 92985-8) Negative ENTEROCOCCUS FAECIUM (test c ode = 41602-0) Negative STAPHYLOCOCCUS AUREUS (test code = 01356-5) Negative STAPHYLOCOCCUS SAPROPHYTICUS (test code = 12306-9) Negative STREPTOCOCCUS AGALACTIAE (te st code = 30762-0) Negative ALTAF ALBICANS (test code = 29495-2) Negative ALTAF GLABRATA (test code = no code1) Negative ALTAF PARAPSILOSIS (test c ode = no code3) Negative ALTAF TROPICALIS (test cod e = No code) Negative Topher Aguillon Lupe w/ABR [id number] 00:00:00* Test Item Value Reference Range Interpretation Comme nts ACINETOBACTER BAUMANNII (holden t code = 30501-6) Negative KLEBSIELLA AEROGENES (test c ode = 15199-7) Negative CITROBACTER FREUNDII (test c ode = 32672-6) Negative ENTEROBACTER CLOACAE (test c ode = 19966YOJ) Negative ESCHERICHIA COLI (test code = 06440-3) Negative KLEBSIELLA OXYTOCA (test cod e = 70736-9) Negative KLEBSIELLA PNEUMONIAE (test code = 70299-3) Negative MORGANELLA MORGANII (test co de = 30805-1) Negative MYCOPLASMA HOMINIS (test cod e = 28281-3) Negative PROTEUS MIRABILIS (test code = 28242-8) Negative PROTEUS VULGARIS (test code = 474230-0) Negative PROVIDENCIA STUARTII (test c ode = 17927-2) Negative PSEUDOMONAS AERUGINOSA (test code = 59525-3) Negative SERRATIA MARCESCENS (test co de = 89196-1) Negative UREAPLASMA UREALYTICUM (test code = 62677-1) Negative ENTEROCOCCUS FAECALIS (test code = 69103-3) Negative ENTEROCOCCUS FAECIUM (test c ode = 42162-9) Negative STAPHYLOCOCCUS AUREUS (test code = 50573-7) Negative STAPHYLOCOCCUS SAPROPHYTICUS (test code = 53171-4) Negative STREPTOCOCCUS AGALACTIAE (te st code = 70641-0) Negative ALTAF ALBICANS (test code = 86881-2) Negative ALTAF GLABRATA (test code = no code1) Negative ALTAF PARAPSILOSIS (test c ode = no code3) Negative ALTAF TROPICALIS (test cod e = No code) Negative Topher BolesEric w/ABR [id number] 00:00:00* Test Item Value Reference Range Interpretation Comme nts ACINETOBACTER BAUMANNII (holden t code = 66004-6) Negative KLEBSIELLA AEROGENES (test c ode = 82648-2) Negative CITROBACTER FREUNDII (test c ode = 52591-6) Negative ENTEROBACTER CLOACAE (test c ode = 74087ENO) Negative ESCHERICHIA COLI (test code = 21141-4) Negative KLEBSIELLA OXYTOCA (test cod e = 38614-2) Negative KLEBSIELLA PNEUMONIAE (test code = 88720-6) Negative MORGANELLA MORGANII (test co de = 10068-1) Negative MYCOPLASMA HOMINIS (test cod e = 99449-9) Negative PROTEUS MIRABILIS (test code = 59759-5) Negative PROTEUS VULGARIS (test code = 540503-8) Negative PROVIDENCIA STUARTII (test c ode = 11720-5) Negative PSEUDOMONAS AERUGINOSA (test code = 51736-6) Negative SERRATIA MARCESCENS (test co de = 13570-4) Negative UREAPLASMA UREALYTICUM (test code = 07421-2) Negative ENTEROCOCCUS FAECALIS (test code = 63130-7) Negative ENTEROCOCCUS FAECIUM (test c ode = 21837-7) Negative STAPHYLOCOCCUS AUREUS (test code = 35846-5) Negative STAPHYLOCOCCUS SAPROPHYTICUS (test code = 16273-6) Negative STREPTOCOCCUS AGALACTIAE (te st code = 45093-1) Negative ALTAF ALBICANS (test code = 21169-9) Negative ALTAF GLABRATA (test code = no code1) Negative ALTAF PARAPSILOSIS (test c ode = no code3) Negative ALTAF TROPICALIS (test cod e = No code) Negative Topher Andrade /Imindi [id number] 00:00:00* Test Item Value Reference Range Interpretation Comme nts ACINETOBACTER BAUMANNII (holden t code = 04096-3) Negative KLEBSIELLA AEROGENES (test c ode = 71331-0) Negative CITROBACTER FREUNDII (test c ode = 99053-0) Negative ENTEROBACTER CLOACAE (test c ode = 09287OYV) Negative ESCHERICHIA COLI (test code = 10793-0) Negative KLEBSIELLA OXYTOCA (test cod e = 39632-4) Negative KLEBSIELLA PNEUMONIAE (test code = 70585-8) Negative MORGANELLA MORGANII (test co de = 24776-5) Negative MYCOPLASMA HOMINIS (test cod e = 49125-1) Negative PROTEUS MIRABILIS (test code = 79026-4) Negative PROTEUS VULGARIS (test code = 749101-2) Negative PROVIDENCIA STUARTII (test c ode = 82400-7) Negative PSEUDOMONAS AERUGINOSA (test code = 58266-6) Negative SERRATIA MARCESCENS (test co de = 24667-6) Negative UREAPLASMA UREALYTICUM (test code = 90226-9) Negative ENTEROCOCCUS FAECALIS (test code = 08226-4) Negative ENTEROCOCCUS FAECIUM (test c ode = 45941-1) Negative STAPHYLOCOCCUS AUREUS (test code = 12250-2) Negative STAPHYLOCOCCUS SAPROPHYTICUS (test code = 27120-6) Negative STREPTOCOCCUS AGALACTIAE (te st code = 13259-9) Negative ALTAF ALBICANS (test code = 78905-7) Negative ALTAF GLABRATA (test code = no code1) Negative ALTAF PARAPSILOSIS (test c ode = no code3) Negative ALTAF TROPICALIS (test cod e = No code) Negative Topher Andrade /Imindi [id number] 00:00:00* Test Item Value Reference Range Interpretation Comme nts ACINETOBACTER BAUMANNII (holden t code = 21612-2) Negative KLEBSIELLA AEROGENES (test c ode = 68738-0) Negative CITROBACTER FREUNDII (test c ode = 00379-1) Negative ENTEROBACTER CLOACAE (test c ode = 86873MCP) Negative ESCHERICHIA COLI (test code = 01838-7) Negative KLEBSIELLA OXYTOCA (test cod e = 69486-6) Negative KLEBSIELLA PNEUMONIAE (test code = 68798-8) Negative MORGANELLA MORGANII (test co de = 91004-1) Negative MYCOPLASMA HOMINIS (test cod e = 37634-6) Negative PROTEUS MIRABILIS (test code = 01041-1) Negative PROTEUS VULGARIS (test code = 073308-4) Negative PROVIDENCIA STUARTII (test c ode = 49090-7) Negative PSEUDOMONAS AERUGINOSA (test code = 87790-8) Negative SERRATIA MARCESCENS (test co de = 55633-7) Negative UREAPLASMA UREALYTICUM (test code = 17109-6) Negative ENTEROCOCCUS FAECALIS (test code = 26492-7) Negative ENTEROCOCCUS FAECIUM (test c ode = 27681-1) Negative STAPHYLOCOCCUS AUREUS (test code = 84578-1) Negative STAPHYLOCOCCUS SAPROPHYTICUS (test code = 21896-7) Negative STREPTOCOCCUS AGALACTIAE (te st code = 44631-5) Negative ALTAF ALBICANS (test code = 50762-7) Negative ALTAF GLABRATA (test code = no code1) Negative ALTAF PARAPSILOSIS (test c ode = no code3) Negative ALTAF TROPICALIS (test cod e = No code) Negative Topher F AustinPOCT URINALYSIS W SPECIFIC [id number] 20:27:00* Test Item Value Reference Range Interpretation [...] U APPEAR (test code = 3267) . [facility] URINALYSIS W SPECIFIC [id number] 15:45:00* Test Item Value Reference Range Interpretation [...] POCT U APPEAR (test code = 3267) [facility] - NON-INVASIVE TEST RESULTS 2024-11-26 13:16:05Ordered by an unspecified provider.[facility] - NON-INVASIVE TEST [id number] 15:59:55 Ordered by an unspecified provider.[facility] URINALYSIS W SPECIFIC [id number] 16:58:00* Test Item Value Reference Range Interpretation [...] POCT U APPEAR (test code = 3267) [facility] [id number] 13:50:00* Test Item Value Reference Range Interpretation [...] POCT U APPEAR (test code = 3267) [facility] less than 14 weeks with [id number] 08:40:17Ordering Physician: KAMILAH ?VALENTIN HISTORY: ?Pelvic pain in early COMPARISON: None [...] of the ovaries demonstrates normal color-flowand wave forms.[facility] Urinalysis w/o Specific [place] 2024-09-23 15:19:00* Test Item Value Reference Range Interpretation Comme [facility] POCT PH U (test code = 3254) [...] = 3257) neg Negative - Negati ve [facility] [id number] 15:18:00* Test Item Value Reference Range Interpretation Comme [facility] POCT PREG (test code = 1605) Positive On board controls acceptable with C Line (test code = 3574) Yes POCT PREG LOT # (test code = 3575) POCT PREG TEST DATE ( test code = 3576) [facility]2024-[facility]-17 01:02:59* Test Item Value Reference Range Interpretation Comme nts Height (test code = 2016887643) 66 in Weight (test code = 5981695627) 129 lbs Systolic BP (test code = 2901093349) 109 mmHg Diastolic BP (test code = 3578258439) 68 mmHg Heart Rate (test code = 1994741225) 68 bpm RVOT diameter (test code = 8271195469) 1.58 cm RVOT Proximal Diameter (test code = 7770274556) 1.87 cm MR max PG (test code = 5613582309) 80.70 mm[Hg] MR max rosa (test code = 8543761478) 449.20 cm/s Ao root diam (test code = 3752230638) 2.02 cm Mr max rosa (test code = 4031145357) 449.2 m/s Aortic root (test code = 6452342320) 2.02 cm Ao root annulus (test code = 0793102513) 2.02 cm BSA (test code = 1818402613) 1.66 m2 LVOT diameter (test code = 8812332959) 1.50 cm LVOT area (test code = 3176938969) 1.77 cm2 LA size (test code = 4270317891) 2.5 cm ACS (test code = 6482857178) 1.92 cm PV PEAK VELOCITY (test code = 1753692404) 76.0 cm/s PV peak gradient (test code = 1199319218) 2.31 mmHg MV E-F slope (test code = 5844681753) 32.00 cm/s MV Peak E Rosa (test code = 3552038251) 108.5 cm/s MV valve area p 1/2 method (test code = 2824696849) 2.70 cm2 MV dec slope (test code = 3737779977) 400.90 cm/s2 MV P1/2t max rosa (test code = 6167896353) 109.50 cm/s MV Peak A Rosa (test code = 1091032553) 62.4 cm/s E/A ratio (test code = 7592383927) 1.74 ratio LVOT stroke volume (test code = 6050645244) 36.80 cm3 LVOT peak rosa (test code = 2204179836) 109.5 cm/s LVOT mn grad (test code = 0445887690) 2.2 mmHg AV LVOT peak gradient (test code = 6781858189) 4.8 mmHg LVOT peak VTI (test code = 2304678461) 20.8 cm LV V1 mean (test code = 2010080992) 66.90 cm/s Aortic valve mean velocity (test code = 2191568768) 99.3 cm/s Ao peak rosa (test code = 4258404500) 164.0 cm/s Ao VTI (test code = 8133530207) 35.1 cm AV area by cont VTI (test code = 1343332848) 1.1 cm2 AV area peak rosa (test code = 3054480025) 1.2 cm2 Ao max PG (test code = 3052136908) 10.80 mm[Hg] AV peak gradient (test code = 0350877040) 10.8 mmHg AV valve area (test code = 0284225035) 1.05 cm2 AV mean gradient (test code = 7719273164) 4.7 mmHg TR Peak Rosa (test code = 9616804104) 267.4 cm/s Triscuspid Valve Regurgitation Peak Gradient (test code = 2685293299) 28.6 mmHg LAV(MOD-sp4) (test code = 0599143640) 14.00 mL LA Volume Index (BP) (test code = 1108056170) 10.0 mL/m2 LA volume (BP) (test code = 8488634520) 16.6 mL LAV(MOD-sp2) (test code = 3388696230) 18.80 mL A4C EF (test code = 3735914569) 61.20 % EF(sp4-el) (test code = 3698881258) 62.10 % SV(MOD-sp4) (test code = 6863956387) 38.90 mL SV(sp4-el) (test code = 3458944774) 38.50 mL LVIDD (test code = 6232423600) 3.90 cm Left Ventricular End Diastolic Volume by Teichholz Method (test code = 7161618) 67.8 mL IVS (test code = 0578084016) 0.93 cm Interventricular Septum Diastolic Thickness by 2D (test code = 2315187) 0.93 cm LVPWD (test code = 6366829491) 0.86 cm PW (test code = 9759543255) 0.86 cm 0.6-1.1 EF(Teich) (test code = 4272033323) 61.80 % LVIDS (test code = 2720030902) 2.70 cm Left Ventricular End Systolic Volume by Teichholz Method (test code = 6929406) 25.9 mL FS (test code = 3314910917) 33 % EF - 2D (test code = 03589920) 61.80 % RVOT area (test code = 6179483014) 1.96 cm2 Radiology Study observation (narrative) (test code = 20147-2) EDGARD (test code = EDGARD) ?Left?Ventricle: Left [...] 2D, color flow Doppler and spectral Doppler. [facility] HospitalPOOK [id number] 02:16:00* Test Item Value Reference Range Interpretation Comme nts POCT PREG (test code = 1605) Negative On board controls acceptable with C Line (test code = 3574) Yes POCT PREG LOT # (test code = 3575) 387452 POCT PREG TEST DATE ( test code = 3576) 2025-07-24 Lab Interpretation (test cod e = 65454-9) Normal [facility] HospitalCT/NG, NAAT, [id number] 21:40:03* Test Item Value Reference Range Interpretation Comme nts CHLAMYDIA, NAAT, URINE (test code = 16725) NEGATIVE NEGATIVE Testing is perfo rmed with Mia AMARILIS 6800/8800 systems usingreal-time polymerase chain reaction (PCR) method. A negative result does not exclude low level infection, specimensampling error, or collection error. GONORRHEA, NAAT, URINE (test code = 53365) NEGATIVE NEGATIVE Testing is perfo rmed with Mia AMARILIS 6800/8800 systems usingreal-time polymerase chain reaction (PCR) method. A negative result does not exclude low level infection, specimensampling error, or collection error. UNLESS OTHERWISE INDICATED, ALL TESTING PERFORMED AT [facility] [address] [place] [address] GEOMAGNETICIAN: SUSAN YANEZ M.D. [facility] NUMBER [id number] [facility] [place] [id number] HEPATITIS PANEL, [id number] 03:55:14* Test Item Value Reference Range Interpretation [...] A. INTERPRETATION HEPATITIS B: (test code = 33082) (NOTE) Hepatitis B sero logy shows no evidence of past exposure to orcurrent infection with hepatitis B virus. No evidence of hepatitis Bimmunization is identified. INTERPRETATION HEPATITIS C: (test code = 35516) (NOTE) Hepatitis C sero logy shows no evidence of exposure to hepatitisC virus at this time. It can take up to 12 months after exposure tothe hepatitis C virus for antibodies to become detectable in the blood in certain patients. HIV 1/2 4TH GEN, RFLX [id number] 03:55:14* Test Item Value Reference Range Interpretation Comme nts HIV 1/2 4TH GEN, RFLX CONF ( test code = 3514) NON-REACTIVE NON-REACTIVE RPR REFLEX TO T. PALLIDUM - [id number] 03:53:20* Test Item Value Reference Range Interpretation Comme nts RPR (test code = 18825) NON-REACTIVE NON-REACTIVE RPR TITER (test code = [...] (NOTE) INTERPRETATION HEPATITIS B: (test code = 65177) (NOTE) INTERPRETATION HEPATITIS C: (test code = 30554) (NOTE) Topher Aguillon AustinRPR REFLEX TO T. PALLIDUM - [id number] 00:00:00* Test Item Value Reference Range Interpretation Comme nts RPR (test code = 53454) NON-REACTIVE RPR TITER (test code = 3500) NOT INDIC. TITER Topher Aguillon AustinHIV 1/2 4TH GEN, RFLX [id number] 00:00:00* Test Item Value Reference Range Interpretation Comme nts HIV 1/2 4TH GEN, RFLX CONF ( test code = 3514) NON-REACTIVE Topher Aguillon AustinCT/NG, NAAT, [id number] 00:00:00* Test Item Value Reference Range Interpretation Comme nts CHLAMYDIA, NAAT, URINE (test code = 85456) NEGATIVE GONORRHEA, NAAT, URINE (test code = 24870) NEGATIVE Topher MichelHEPATITIS PROFILE (A,B,C)2024-04-10 00:00:00* Test [...] (NOTE) INTERPRETATION HEPATITIS B: (test code = 16890) (NOTE) INTERPRETATION HEPATITIS C: (test code = 98379) (NOTE) Topher Aguillon AustinRPR REFLEX TO T. PALLIDUM - [id number] 00:00:00* Test Item Value Reference Range Interpretation Comme nts RPR (test code = 30657) NON-REACTIVE RPR TITER (test code = 3500) NOT INDIC. TITER Topher Aguillon AustinHIV 1/2 4TH GEN, RFLX [id number] 00:00:00* Test Item Value Reference Range Interpretation Comme nts HIV 1/2 4TH GEN, RFLX CONF ( test code = 3514) NON-REACTIVE Topher Aguillon AustinCT/NG, NAAT, [id number] 00:00:00* Test Item Value Reference Range Interpretation Comme nts CHLAMYDIA, NAAT, URINE (test code = 66786) NEGATIVE GONORRHEA, NAAT, URINE (test code = 03527) NEGATIVE Topher MichelHEPATITIS PROFILE (A,B,C)2024-04-10 00:00:00* Test [...] (NOTE) INTERPRETATION HEPATITIS B: (test code = 05130) (NOTE) INTERPRETATION HEPATITIS C: (test code = 86360) (NOTE) Topher Aguillon AustinRPR REFLEX TO T. PALLIDUM - [id number] 00:00:00* Test Item Value Reference Range Interpretation Comme nts RPR (test code = 30179) NON-REACTIVE RPR TITER (test code = 3500) NOT INDIC. TITER Topher Aguillon AustinHIV 1/2 4TH GEN, RFLX [id number] 00:00:00* Test Item Value Reference Range Interpretation Comme nts HIV 1/2 4TH GEN, RFLX CONF ( test code = 3514) NON-REACTIVE Topher Aguillon AustinCT/NG, NAAT, [id number] 00:00:00* Test Item Value Reference Range Interpretation Comme nts CHLAMYDIA, NAAT, URINE (test code = 00426) NEGATIVE GONORRHEA, NAAT, URINE (test code = 53147) NEGATIVE Topher MichelHEPATITIS PROFILE (A,B,C)2024-04-10 00:00:00* Test [...] (NOTE) INTERPRETATION HEPATITIS B: (test code = 28483) (NOTE) INTERPRETATION HEPATITIS C: (test code = 61676) (NOTE) Topher Aguillon AustinRPR REFLEX TO T. PALLIDUM - [id number] 00:00:00* Test Item Value Reference Range Interpretation Comme nts RPR (test code = 27283) NON-REACTIVE RPR TITER (test code = 3500) NOT INDIC. TITER Topher Aguillon AustinHIV 1/2 4TH GEN, RFLX [id number] 00:00:00* Test Item Value Reference Range Interpretation Comme nts HIV 1/2 4TH GEN, RFLX CONF ( test code = 3514) NON-REACTIVE Topher MichelCT/NG, NAAT, [id number] 00:00:00* Test Item Value Reference Range Interpretation Comme nts CHLAMYDIA, NAAT, URINE (test code = 52279) NEGATIVE GONORRHEA, NAAT, URINE (test code = 28391) NEGATIVE Topher MichelHEPATITIS PROFILE (A,B,C)2024-04-10 00:00:00* Test [...] (NOTE) INTERPRETATION HEPATITIS B: (test code = 44602) (NOTE) INTERPRETATION HEPATITIS C: (test code = 84662) (NOTE) Topher Aguillon AustinRPR REFLEX TO T. PALLIDUM - [id number] 00:00:00* Test Item Value Reference Range Interpretation Comme nts RPR (test code = 94550) NON-REACTIVE RPR TITER (test code = 3500) NOT INDIC. TITER Topher Aguillon AustinHIV 1/2 4TH GEN, RFLX [id number] 00:00:00* Test Item Value Reference Range Interpretation Comme nts HIV 1/2 4TH GEN, RFLX CONF ( test code = 3514) NON-REACTIVE Topher Aguillon AustinCT/NG, NAAT, [id number] 00:00:00* Test Item Value Reference Range Interpretation Comme nts CHLAMYDIA, NAAT, URINE (test code = 53142) NEGATIVE GONORRHEA, NAAT, URINE (test code = 78807) NEGATIVE Topher MichelHEPATITIS PROFILE (A,B,C)2024-04-10 00:00:00* Test [...] (NOTE) INTERPRETATION HEPATITIS B: (test code = 50198) (NOTE) INTERPRETATION HEPATITIS C: (test code = 14208) (NOTE) Topher MichelRPR REFLEX TO T. PALLIDUM - [id number] 00:00:00* Test Item Value Reference Range Interpretation Comme nts RPR (test code = 85667) NON-REACTIVE RPR TITER (test code = 3500) NOT INDIC. TITER Topher Aguillon AustinHIV 1/2 4TH GEN, RFLX [id number] 00:00:00* Test Item Value Reference Range Interpretation Comme nts HIV 1/2 4TH GEN, RFLX CONF ( test code = 3514) NON-REACTIVE Topher Aguillon AustinCT/NG, NAAT, [id number] 00:00:00* Test Item Value Reference Range Interpretation Comme nts CHLAMYDIA, NAAT, URINE (test code = 98414) NEGATIVE GONORRHEA, NAAT, URINE (test code = 36086) NEGATIVE Topher MichelHEPATITIS PROFILE (A,B,C)2024-04-10 00:00:00* Test [...] (NOTE) INTERPRETATION HEPATITIS B: (test code = 57312) (NOTE) INTERPRETATION HEPATITIS C: (test code = 08292) (NOTE) Topher Aguillon AustinRPR REFLEX TO T. PALLIDUM - [id number] 00:00:00* Test Item Value Reference Range Interpretation Comme nts RPR (test code = 68885) NON-REACTIVE RPR TITER (test code = 3500) NOT INDIC. TITER Topher Aguillon AustinHIV 1/2 4TH GEN, RFLX [id number] 00:00:00* Test Item Value Reference Range Interpretation Comme nts HIV 1/2 4TH GEN, RFLX CONF ( test code = 3514) NON-REACTIVE Topher MichelCT/NG, NAAT, [id number] 00:00:00* Test Item Value Reference Range Interpretation Comme nts CHLAMYDIA, NAAT, URINE (test code = 99777) NEGATIVE GONORRHEA, NAAT, URINE (test code = 03391) NEGATIVE Topher MichelHEPATITIS PROFILE (A,B,C)2024-04-10 00:00:00* Test [...] (NOTE) INTERPRETATION HEPATITIS B: (test code = 55393) (NOTE) INTERPRETATION HEPATITIS C: (test code = 36673) (NOTE) Topher Aguillon AustinRPR REFLEX TO T. PALLIDUM - [id number] 00:00:00* Test Item Value Reference Range Interpretation Comme nts RPR (test code = 49151) NON-REACTIVE RPR TITER (test code = 3500) NOT INDIC. TITER Topher Aguillon AustinHIV 1/2 4TH GEN, RFLX [id number] 00:00:00* Test Item Value Reference Range Interpretation Comme nts HIV 1/2 4TH GEN, RFLX CONF ( test code = 3514) NON-REACTIVE Topher Aguillon AustinCT/NG, NAAT, [id number] 00:00:00* Test Item Value Reference Range Interpretation Comme nts CHLAMYDIA, NAAT, URINE (test code = 96317) NEGATIVE GONORRHEA, NAAT, URINE (test code = 24222) NEGATIVE Topher MichelHEPATITIS PROFILE (A,B,C)2024-04-10 00:00:00* Test [...] (NOTE) INTERPRETATION HEPATITIS B: (test code = 75867) (NOTE) INTERPRETATION HEPATITIS C: (test code = 74214) (NOTE) Topher MichelRPR REFLEX TO T. PALLIDUM - [id number] 00:00:00* Test Item Value Reference Range Interpretation Comme nts RPR (test code = 44935) NON-REACTIVE RPR TITER (test code = 3500) NOT INDIC. TITER Topher MichelHIV 1/2 4TH GEN, RFLX [id number] 00:00:00* Test Item Value Reference Range Interpretation Comme nts HIV 1/2 4TH GEN, RFLX CONF ( test code = 3514) NON-REACTIVE Topher Aguillon AustinCT/NG, NAAT, [id number] 00:00:00* Test Item Value Reference Range Interpretation Comme nts CHLAMYDIA, NAAT, URINE (test code = 84127) NEGATIVE GONORRHEA, NAAT, URINE (test code = 52739) NEGATIVE Topher MichelHEPATITIS PROFILE (A,B,C)2024-04-10 00:00:00* Test [...] (NOTE) INTERPRETATION HEPATITIS B: (test code = 06697) (NOTE) INTERPRETATION HEPATITIS C: (test code = 32105) (NOTE) Topher Aguillon AustinRPR REFLEX TO T. PALLIDUM - [id number] 00:00:00* Test Item Value Reference Range Interpretation Comme nts RPR (test code = 68447) NON-REACTIVE RPR TITER (test code = 3500) NOT INDIC. TITER Topher Aguillon AustinHIV 1/2 4TH GEN, RFLX [id number] 00:00:00* Test Item Value Reference Range Interpretation Comme nts HIV 1/2 4TH GEN, RFLX CONF ( test code = 3514) NON-REACTIVE Topher Aguillon AustinCT/NG, NAAT, [id number] 00:00:00* Test Item Value Reference Range Interpretation Comme nts CHLAMYDIA, NAAT, URINE (test code = 65588) NEGATIVE GONORRHEA, NAAT, URINE (test code = 13459) NEGATIVE Topher MichelHEPATITIS PROFILE (A,B,C)2024-04-10 00:00:00* Test [...] (NOTE) INTERPRETATION HEPATITIS B: (test code = 90783) (NOTE) INTERPRETATION HEPATITIS C: (test code = 99576) (NOTE) Topher Aguillon AustinRPR REFLEX TO T. PALLIDUM - [id number] 00:00:00* Test Item Value Reference Range Interpretation Comme nts RPR (test code = 78635) NON-REACTIVE RPR TITER (test code = 3500) NOT INDIC. TITER Topher Aguillon AustinHIV 1/2 4TH GEN, RFLX [id number] 00:00:00* Test Item Value Reference Range Interpretation Comme nts HIV 1/2 4TH GEN, RFLX CONF ( test code = 3514) NON-REACTIVE Topher Aguillon AustinCT/NG, NAAT, [id number] 00:00:00* Test Item Value Reference Range Interpretation Comme nts CHLAMYDIA, NAAT, URINE (test code = 37005) NEGATIVE GONORRHEA, NAAT, URINE (test code = 96075) NEGATIVE Topher Aguillon AustinHEPATITIS PROFILE (A,B,C)2024-04-10 00:00:00* [...] (NOTE) INTERPRETATION HEPATITIS B: (test code = 16313) (NOTE) INTERPRETATION HEPATITIS C: (test code = 38747) (NOTE) Topher Aguillon AustinRPR REFLEX TO T. PALLIDUM - [id number] 00:00:00* Test Item Value Reference Range Interpretation Comme nts RPR (test code = 31792) NON-REACTIVE RPR TITER (test code = 3500) NOT INDIC. TITER Topher MichelHIV 1/2 4TH GEN, RFLX [id number] 00:00:00* Test Item Value Reference Range Interpretation Comme nts HIV 1/2 4TH GEN, RFLX CONF ( test code = 3514) NON-REACTIVE Topher Aguillon AustinCT/NG, NAAT, [id number] 00:00:00* Test Item Value Reference Range Interpretation Comme nts CHLAMYDIA, NAAT, URINE (test code = 47651) NEGATIVE GONORRHEA, NAAT, URINE (test code = 11576) NEGATIVE Topher MichelHEPATITIS PROFILE (A,B,C)2024-04-10 00:00:00* Test [...] (NOTE) INTERPRETATION HEPATITIS B: (test code = 65754) (NOTE) INTERPRETATION HEPATITIS C: (test code = 79613) (NOTE) Topher Aguillon AustinRPR REFLEX TO T. PALLIDUM - [id number] 00:00:00* Test Item Value Reference Range Interpretation Comme nts RPR (test code = 97170) NON-REACTIVE RPR TITER (test code = 3500) NOT INDIC. TITER Topher Aguillon AustinHIV 1/2 4TH GEN, RFLX [id number] 00:00:00* Test Item Value Reference Range Interpretation Comme nts HIV 1/2 4TH GEN, RFLX CONF ( test code = 3514) NON-REACTIVE Topher MichelCT/NG, NAAT, [id number] 00:00:00* Test Item Value Reference Range Interpretation Comme nts CHLAMYDIA, NAAT, URINE (test code = 59692) NEGATIVE GONORRHEA, NAAT, URINE (test code = 96851) NEGATIVE Topher MichelHEPATITIS PROFILE (A,B,C)2024-04-10 00:00:00* Test [...] (NOTE) INTERPRETATION HEPATITIS B: (test code = 74986) (NOTE) INTERPRETATION HEPATITIS C: (test code = 10172) (NOTE) Topher Aguillon AustinRPR REFLEX TO T. PALLIDUM - [id number] 00:00:00* Test Item Value Reference Range Interpretation Comme nts RPR (test code = 04662) NON-REACTIVE RPR TITER (test code = 3500) NOT INDIC. TITER Topher MichelHIV 1/2 4TH GEN, RFLX [id number] 00:00:00* Test Item Value Reference Range Interpretation Comme nts HIV 1/2 4TH GEN, RFLX CONF ( test code = 3514) NON-REACTIVE Topher Aguillon AustinCT/NG, NAAT, [id number] 00:00:00* Test Item Value Reference Range Interpretation Comme nts CHLAMYDIA, NAAT, URINE (test code = 70794) NEGATIVE GONORRHEA, NAAT, URINE (test code = 36303) NEGATIVE Topher Aguillon AustinVAGINAL PATHOGENS DNA [id number] 13:02:08* Test Item Value Reference Range Interpretation Comme nts ALTAF SPECIES (test code = 28089) POSITIVE NEGATIVE A G. VAGINALIS (test code = 03895) NEGATIVE NEGATIVE T. VAGINALIS (test code = 10597) NEGATIVE NEGATIVE Note: The [employer] VPIII Microbial Identification Testis a DNA probe test intended for use in the detectionand identification of Altaf species, Gardnerellavaginalis and Trichomonas vaginalis nucleic acid. UNLESS OTHERWISE INDICATED, ALL TESTING PERFORMED AT [facility] [address] [place] [address] GEOMAGNETICIAN: SUSAN YANEZ M.D. [place] NUMBER [id number] [facility] [place] [id number] VAGINAL PATHOGENS DNA [id number] 00:00:00* Test Item Value Reference Range Interpretation Comme nts ALTAF SPECIES (test code = 29527) POSITIVE G. VAGINALIS (test code = 54301) NEGATIVE T. VAGINALIS (test code = 27652) NEGATIVE Topher Aguillon AustinVAGINAL PATHOGENS DNA [id number] 00:00:00* Test Item Value Reference Range Interpretation Comme nts ALTAF SPECIES (test code = 74888) POSITIVE G. VAGINALIS (test code = 15346) NEGATIVE T. VAGINALIS (test code = 05150) NEGATIVE Topher Aguillon AustinVAGINAL PATHOGENS DNA [id number] 00:00:00* Test Item Value Reference Range Interpretation Comme nts ALTAF SPECIES (test code = 68977) POSITIVE G. VAGINALIS (test code = 30216) NEGATIVE T. VAGINALIS (test code = 82475) NEGATIVE Topher Aguillon AustinVAGINAL PATHOGENS DNA [id number] 00:00:00* Test Item Value Reference Range Interpretation Comme nts ALTAF SPECIES (test code = 93727) POSITIVE G. VAGINALIS (test code = 63370) NEGATIVE T. VAGINALIS (test code = 60268) NEGATIVE Topher Aguillon AustinVAGINAL PATHOGENS DNA [id number] 00:00:00* Test Item Value Reference Range Interpretation Comme nts ALTAF SPECIES (test code = 73207) POSITIVE G. VAGINALIS (test code = 18878) NEGATIVE T. VAGINALIS (test code = 52097) NEGATIVE Topher Aguillon AustinVAGINAL PATHOGENS DNA [id number] 00:00:00* Test Item Value Reference Range Interpretation Comme nts ALTAF SPECIES (test code = 18343) POSITIVE G. VAGINALIS (test code = 62595) NEGATIVE T. VAGINALIS (test code = 09726) NEGATIVE Topher Aguillon AustinVAGINAL PATHOGENS DNA [id number] 00:00:00* Test Item Value Reference Range Interpretation Comme nts ALTAF SPECIES (test code = 93938) POSITIVE G. VAGINALIS (test code = 79607) NEGATIVE T. VAGINALIS (test code = 45066) NEGATIVE Topher Aguillon AustinVAGINAL PATHOGENS DNA [id number] 00:00:00* Test Item Value Reference Range Interpretation Comme nts ALTAF SPECIES (test code = 70307) POSITIVE G. VAGINALIS (test code = 70846) NEGATIVE T. VAGINALIS (test code = 22180) NEGATIVE Topher Aguillon AustinVAGINAL PATHOGENS DNA [id number] 00:00:00* Test Item Value Reference Range Interpretation Comme nts ALTAF SPECIES (test code = 55585) POSITIVE G. VAGINALIS (test code = 26297) NEGATIVE T. VAGINALIS (test code = 93240) NEGATIVE Topher Aguillon AustinVAGINAL PATHOGENS DNA [id number] 00:00:00* Test Item Value Reference Range Interpretation Comme nts ALTAF SPECIES (test code = 50642) POSITIVE G. VAGINALIS (test code = 32025) NEGATIVE T. VAGINALIS (test code = 59851) NEGATIVE Topher Aguillon AustinVAGINAL PATHOGENS DNA [id number] 00:00:00* Test Item Value Reference Range Interpretation Comme nts ALTAF SPECIES (test code = 28459) POSITIVE G. VAGINALIS (test code = 08934) NEGATIVE T. VAGINALIS (test code = 48394) NEGATIVE Topher Aguillon AustinVAGINAL PATHOGENS DNA [id number] 00:00:00* Test Item Value Reference Range Interpretation Comme nts ALTAF SPECIES (test code = 02227) POSITIVE G. VAGINALIS (test code = 76913) NEGATIVE T. VAGINALIS (test code = 06626) NEGATIVE Topher Aguillon AustinVAGINAL PATHOGENS DNA [id number] 00:00:00* Test Item Value Reference Range Interpretation Comme nts ALTAF SPECIES (test code = 31954) POSITIVE G. VAGINALIS (test code = 86761) NEGATIVE T. VAGINALIS (test code = 83085) NEGATIVE Topher Aguillon AustinVAGINAL PATHOGENS DNA [id number] 00:00:00* Test Item Value Reference Range Interpretation Comme nts ALTAF SPECIES (test code = 57385) POSITIVE G. VAGINALIS (test code = 16589) NEGATIVE T. VAGINALIS (test code = 55188) NEGATIVE Topher Aguillon AustinVAGINAL PATHOGENS DNA [id number] 00:00:00* Test Item Value Reference Range Interpretation Comme nts ALTAF SPECIES (test code = 69121) POSITIVE G. VAGINALIS (test code = 54873) NEGATIVE T. VAGINALIS (test code = 57101) NEGATIVE Topher Aguillon AustinVAGINAL PATHOGENS DNA [id number] 00:00:00* Test Item Value Reference Range Interpretation Comme nts ALTAF SPECIES (test code = 63480) POSITIVE G. VAGINALIS (test code = 52995) NEGATIVE T. VAGINALIS (test code = 03007) NEGATIVE Tohper Aguillon AustinSURGICAL PATHOLOGY [id number] 13:04:14* Test Item Value Reference Range Interpretation Comments DIAGNOSIS: (test code = 8200) (NOTE) A) Curettage - E ndocervixBenign endocervical tissue. B) Biopsy - Cervix 3:00Benign squamous mucosa; no transformation zone present. C) Biopsy - Cervix 12:00Benign squamous mucosa; no transformation zone present. COMMENTS: (test code = 8205) (NOTE) The previously r eported abnormal Pap (accession #[id number]) isreviewed. The atypical cells identified on the [...] TanNUMBER OF TISSUE PIECES: multipleSUBMITTED IN CASSETTE(S): [id number]: FormalinCOMMENTS:Filtered and entirely submitted. B) SPECIMEN LABELED: Cervix 3:00SIZE/WEIGHT: 0.4x0.4x0.1 cm SPECIMEN COLOR: TanNUMBER OF TISSUE PIECES: 1SUBMITTED IN CASSETTE(S): [id number]: FormalinCOMMENTS:Entirely submitted intact. C) SPECIMEN LABELED: Cervix 12:00SIZE/WEIGHT: 0.5x0.4x0.2 cm SPECIMEN COLOR: TanNUMBER OF TISSUE PIECES: 1SUBMITTED IN CASSETTE(S): [id number]: FormalinCOMMENTS:Entirely submitted intact. PATHOLOGIST: (test code = 8250) (NOTE) Loc Beverly M.D. Specimens processed and interpreted at [facility], [address] [place] [address], , CLIA: [id number] CPT: (test code = 8400) (NOTE) [id number] UNLESS O THERWISE INDICATED, ALL TESTING PERFORMED AT [facility] [address] [place] [address] GEOMAGNETICIAN: SUSAN YANEZ M.D. CLIA NUMBER [id number] [facility] [place]. [id number] SURGICAL PATHOLOGY [id number] 00:00:00* Test Item Value Reference Range Interpretation [...] = PDFReport) PDF Topher Aguillon AustinSURGICAL PATHOLOGY [id number] 00:00:00* Test Item Value Reference Range Interpretation [...] = PDFReport) PDF Topher Aguillon AustinSURGICAL PATHOLOGY [id number] 00:00:00* Test Item Value Reference Range Interpretation [...] = PDFReport) PDF Topher Aguillon AustinSURGICAL PATHOLOGY [id number] 00:00:00* Test Item Value Reference Range Interpretation [...] = PDFReport) PDF Topher Aguillon AustinSURGICAL PATHOLOGY [id number] 00:00:00* Test Item Value Reference Range Interpretation [...] = PDFReport) PDF Topher Aguillon AustinSURGICAL PATHOLOGY [id number] 00:00:00* Test Item Value Reference Range Interpretation Comme nts DIAGNOSIS: (test code = 8200) (NOTE) COMMENTS: (test code = 8205) (NOTE) MICROSCOPIC DESCRIPTION: (te st code = 8210) (NOTE) CLINICAL DATA: (test code = 8401) (NOTE) GROSS DESCRIPTION: (test code = 8220) (NOTE) PATHOLOGIST: (test code = 8250) (NOTE) CPT: (test code = 8400) (NOTE) PDFE (test code = PDFReport) PDF Topher Aguillon WainwrightSURGICAL PATHOLOGY [id number] 00:00:00* Test Item Value Reference Range Interpretation Comme nts DIAGNOSIS: (test code = 8200) (NOTE) COMMENTS: (test code = 8205) (NOTE) MICROSCOPIC DESCRIPTION: (te st code = 8210) (NOTE) CLINICAL DATA: (test code = 8401) (NOTE) GROSS DESCRIPTION: (test code = 8220) (NOTE) PATHOLOGIST: (test code = 8250) (NOTE) CPT: (test code = 8400) (NOTE) PDFE (test code = PDFReport) PDF Topher Aguillon WainwrightSURGICAL PATHOLOGY [id number] 00:00:00* Test Item Value Reference Range Interpretation [...] = PDFReport) PDF Topher Aguillon AustinSURGICAL PATHOLOGY [id number] 00:00:00* Test Item Value Reference Range Interpretation Comme nts DIAGNOSIS: (test code = 8200) (NOTE) COMMENTS: (test code = 8205) (NOTE) MICROSCOPIC DESCRIPTION: (te st code = 8210) (NOTE) CLINICAL DATA: (test code = 8401) (NOTE) GROSS DESCRIPTION: (test code = 8220) (NOTE) PATHOLOGIST: (test code = 8250) (NOTE) CPT: (test code = 8400) (NOTE) PDFE (test code = PDFReport) PDF Topher Aguillon [facility] PATHOLOGY [id number] 00:00:00* Test Item Value Reference Range Interpretation Comme nts DIAGNOSIS: (test code = 8200) (NOTE) COMMENTS: (test code = 8205) (NOTE) MICROSCOPIC DESCRIPTION: (te st code = 8210) (NOTE) CLINICAL DATA: (test code = 8401) (NOTE) GROSS DESCRIPTION: (test code = 8220) (NOTE) PATHOLOGIST: (test code = 8250) (NOTE) CPT: (test code = 8400) (NOTE) PDFE (test code = PDFReport) PDF Topher Aguillon [facility] PATHOLOGY [id number] 00:00:00* Test Item Value Reference Range Interpretation Comme nts DIAGNOSIS: (test code = 8200) (NOTE) COMMENTS: (test code = 8205) (NOTE) MICROSCOPIC DESCRIPTION: (te st code = 8210) (NOTE) CLINICAL DATA: (test code = 8401) (NOTE) GROSS DESCRIPTION: (test code = 8220) (NOTE) PATHOLOGIST: (test code = 8250) (NOTE) CPT: (test code = 8400) (NOTE) PDFE (test code = PDFReport) PDF Topher Aguillon [facility] PATHOLOGY [id number] 00:00:00* Test Item Value Reference Range Interpretation Comme nts DIAGNOSIS: (test code = 8200) (NOTE) COMMENTS: (test code = 8205) (NOTE) MICROSCOPIC DESCRIPTION: (te st code = 8210) (NOTE) CLINICAL DATA: (test code = 8401) (NOTE) GROSS DESCRIPTION: (test code = 8220) (NOTE) PATHOLOGIST: (test code = 8250) (NOTE) CPT: (test code = 8400) (NOTE) PDFE (test code = PDFReport) PDF Topher Aguillon [facility] PATHOLOGY [id number] 00:00:00* Test Item Value Reference Range Interpretation Comme nts DIAGNOSIS: (test code = 8200) (NOTE) COMMENTS: (test code = 8205) (NOTE) MICROSCOPIC DESCRIPTION: (te st code = 8210) (NOTE) CLINICAL DATA: (test code = 8401) (NOTE) GROSS DESCRIPTION: (test code = 8220) (NOTE) PATHOLOGIST: (test code = 8250) (NOTE) CPT: (test code = 8400) (NOTE) PDFE (test code = PDFReport) PDF Topher Aguillon WainwrightSURGICAL PATHOLOGY [id number] 00:00:00* Test Item Value Reference Range Interpretation Comme nts DIAGNOSIS: (test code = 8200) (NOTE) COMMENTS: (test code = 8205) (NOTE) MICROSCOPIC DESCRIPTION: (te st code = 8210) (NOTE) CLINICAL DATA: (test code = 8401) (NOTE) GROSS DESCRIPTION: (test code = 8220) (NOTE) PATHOLOGIST: (test code = 8250) (NOTE) CPT: (test code = 8400) (NOTE) PDFE (test code = PDFReport) PDF [facility] [id number] 00:00:00* Test Item Value Reference Range Interpretation Comme nts DIAGNOSIS: (test code = 8200) (NOTE) COMMENTS: (test code = 8205) (NOTE) MICROSCOPIC DESCRIPTION: (te st code = 8210) (NOTE) CLINICAL DATA: (test code = 8401) (NOTE) GROSS DESCRIPTION: (test code = 8220) (NOTE) PATHOLOGIST: (test code = 8250) (NOTE) CPT: (test code = 8400) (NOTE) PDFE (test code = PDFReport) PDF [facility]her Aguillon [facility] [id number] 00:00:00* Test Item Value Reference Range Interpretation [...] PDF Topher Aguillon AustinHPV HIGH IF ABNORMAL [id number] 16:32:37* Test Item Value Reference Range Interpretation Comme nts HPV HIGH IF ABNORMAL THINPRE P (test code = 99901) SEE BELOW PAP TEST, THINPREP, [id number] 16:32:37* Test Item Value Reference Range Interpretation Comme nts SOURCE: (test code = 8001) Cervical/Endoc ervical SLIDES: (test code = 8011) 1 LMP: (test code = 8021) 11/18/2023 SPECIMEN ADEQUACY: (test code = 53536) (NOTE) Satisfactory for evaluation. Endocervical cells/transformation zone component present. INTERPRETATION: (test code = 23601) ASCUS/EPITH. ABNORMALITY; SEE BELOW A - ------- EPITHELIAL CELL ABNORMALITY Atypical squamous cells of undetermined significance (ASC-US) ANIMAL TECHNICIAN: (test code = 8101) MAGDA Blancas(ASCP) PATHOLOGIST INTERPRETATION BY: (test code = 8122) Kate Diaz M.D. LOCATION: (test code = 76691) (NOTE) Specimens proces sed and interpreted at [facility] , [address] [place] [address], , CLIA: [id number] CPT: (test code = 8140) (NOTE) 42982, 44577, 88 175 UNLESS OTHERWISE INDICATED, COMPUTER AIDED AND ANIMAL TECHNICIAN SCREENING PERFORMED. The Pap test is a screening test with an inherent, but low probability of error. Your patient should be reminded to consult you immediately if she experiences any suspicious signs or symptoms, regardless of her Pap test result. An alternate report format containing images or consolidated prior Pap history is available as applicable. HPV HIGH RISK WITH GENOTYPE, [id number] 16:26:27* Test Item Value Reference Range Interpretation Comme nts HPV HIGH RISK INTERP (test code = 05149) POSITIVE NEGATIVE A HPV 16 (test code = 14702) NEGATIVE HPV 18 (test code = 18235) NEGATIVE HPV, HR, OTHER GENOTYPES (test code = 21724) POSITIVE A Testing methodol ogy is real-time [...] PERFORMED AT [facility] [address] [place] [address] GEOMAGNETICIAN: SUSAN YANEZ M.D. CLIA NUMBER [id number] [facility] [place]. [id number] HPV HIGH IF ABNORMAL [id number] 00:00:00* Test Item Value Reference Range Interpretation Comme nts HPV HIGH IF ABNORMAL THINPRE P (test code = 10193) SEE BELOW Topher MichelPAP TEST, THINPREP, [id number] 00:00:00* Test Item Value Reference Range Interpretation Comme nts SOURCE: (test code = 8001) Cervical/Endo cervic al SLIDES: (test code = 8011) 1 LMP: (test code = 8021) 11/18/2023 SPECIMEN ADEQUACY: (test code = 20220) (NOTE) INTERPRETATION: (test code = 18903) ASCUS/EPITH. ABNORMALITY; SEE BELOW ANIMAL TECHNICIAN: (test code = 8101) MAGDA Blancas(ASCP) PATHOLOGIST INTERPRETATION BY: (test code = 8122) Kate Diaz M.D. LOCATION: (test code = 03611) (NOTE) CPT: (test code = 8140) (NOTE) Topher MichelHPV HIGH RISK WITH GENOTYPE, TP [REFLEX]2024-01-29 00:00:00* Test Item Value Reference Range Interpretation Comme nts HPV HIGH RISK INTERP (test c ode = 16715) POSITIVE HPV 16 (test code = 54506) NEGATIVE HPV 18 (test code = 37035) NEGATIVE HPV, HR, OTHER GENOTYPES (te st code = 93257) POSITIVE Topher Aguillon AustinHPV HIGH IF ABNORMAL [id number] 00:00:00* Test Item Value Reference Range Interpretation Comme nts HPV HIGH IF ABNORMAL THINPRE P (test code = 66786) SEE BELOW Topher Aguillon AustinPAP TEST, THINPREP, [id number] 00:00:00* Test Item Value Reference Range Interpretation Comme nts SOURCE: (test code = 8001) Cervical/Endo cervic al SLIDES: (test code = 8011) 1 LMP: (test code = 8021) 11/18/2023 SPECIMEN ADEQUACY: (test code = 11259) (NOTE) INTERPRETATION: (test code = 11618) ASCUS/EPITH. ABNORMALITY; SEE BELOW ANIMAL TECHNICIAN: (test code = 8101) MAGDA Blancas(ASCP) PATHOLOGIST INTERPRETATION BY: (test code = 8122) Kate Diaz M.D. LOCATION: (test code = [facility]) (NOTE) CPT: (test code = 8140) (NOTE) Topher Aguillon AustinHPV HIGH RISK WITH GENOTYPE, TP [REFLEX]2024-01-29 00:00:00* Test Item Value Reference Range Interpretation Comme nts HPV HIGH RISK INTERP (test c ode = 24393) POSITIVE HPV 16 (test code = 76402) NEGATIVE HPV 18 (test code = 29885) NEGATIVE HPV, HR, OTHER GENOTYPES (te st code = 68626) POSITIVE Topher Aguillon AustinHPV HIGH IF ABNORMAL [id number] 00:00:00* Test Item Value Reference Range Interpretation Comme nts HPV HIGH IF ABNORMAL THINPRE P (test code = 94200) SEE BELOW Topher MichelPAP TEST, THINPREP, [id number] 00:00:00* Test Item Value Reference Range Interpretation Comme nts SOURCE: (test code = 8001) Cervical/Endo cervic al SLIDES: (test code = 8011) 1 LMP: (test code = 8021) 11/18/2023 SPECIMEN ADEQUACY: (test code = 06155) (NOTE) INTERPRETATION: (test code = 69022) ASCUS/EPITH. ABNORMALITY; SEE BELOW ANIMAL TECHNICIAN: (test code = 8101) MAGDA Blancas(ASCP) PATHOLOGIST INTERPRETATION BY: (test code = 8122) Kate Diaz M.D. LOCATION: (test code = 19601) (NOTE) CPT: (test code = 8140) (NOTE) Topher Aguillon AustinHPV HIGH RISK WITH GENOTYPE, TP [REFLEX]2024-01-29 00:00:00* Test Item Value Reference Range Interpretation Comme nts HPV HIGH RISK INTERP (test c ode = 55818) POSITIVE HPV 16 (test code = 99824) NEGATIVE HPV 18 (test code = 75184) NEGATIVE HPV, HR, OTHER GENOTYPES (te st code = 48041) POSITIVE Topher Aguillon AustinHPV HIGH IF ABNORMAL [id number] 00:00:00* Test Item Value Reference Range Interpretation Comme nts HPV HIGH IF ABNORMAL THINPRE P (test code = 85490) SEE BELOW Topher Aguillon AustinPAP TEST, THINPREP, [id number] 00:00:00* Test Item Value Reference Range Interpretation Comme nts SOURCE: (test code = 8001) Cervical/Endo cervic al SLIDES: (test code = 8011) 1 LMP: (test code = 8021) 11/18/2023 SPECIMEN ADEQUACY: (test code = 71372) (NOTE) INTERPRETATION: (test code = 41475) ASCUS/EPITH. ABNORMALITY; SEE BELOW ANIMAL TECHNICIAN: (test code = 8101) MAGDA Blancas(ASCP) PATHOLOGIST INTERPRETATION BY: (test code = 8122) Kate Diaz M.D. LOCATION: (test code = 61526) (NOTE) CPT: (test code = 8140) (NOTE) Topher Aguillon AustinHPV HIGH RISK WITH GENOTYPE, TP [REFLEX]2024-01-29 00:00:00* Test Item Value Reference Range Interpretation Comme nts HPV HIGH RISK INTERP (test c ode = 16705) POSITIVE HPV 16 (test code = 98602) NEGATIVE HPV 18 (test code = 46855) NEGATIVE HPV, HR, OTHER GENOTYPES (te st code = 56985) POSITIVE Topher Aguillon AustinHPV HIGH IF ABNORMAL [id number] 00:00:00* Test Item Value Reference Range Interpretation Comme nts HPV HIGH IF ABNORMAL THINPRE P (test code = 79357) SEE BELOW Topher Aguillon AustinPAP TEST, THINPREP, [id number] 00:00:00* Test Item Value Reference Range Interpretation Comme nts SOURCE: (test code = 8001) Cervical/Endo cervic al SLIDES: (test code = 8011) 1 LMP: (test code = 8021) 11/18/2023 SPECIMEN ADEQUACY: (test code = 81680) (NOTE) INTERPRETATION: (test code = 14428) ASCUS/EPITH. ABNORMALITY; SEE BELOW ANIMAL TECHNICIAN: (test code = 8101) MAGDA Blancas(ASCP) PATHOLOGIST INTERPRETATION BY: (test code = 8122) Kate Diaz M.D. LOCATION: (test code = 48787) (NOTE) CPT: (test code = 8140) (NOTE) Topher Aguillon AustinHPV HIGH RISK WITH GENOTYPE, TP [REFLEX]2024-01-29 00:00:00* Test Item Value Reference Range Interpretation Comme nts HPV HIGH RISK INTERP (test c ode = 91009) POSITIVE HPV 16 (test code = 36809) NEGATIVE HPV 18 (test code = 07775) NEGATIVE HPV, HR, OTHER GENOTYPES (te st code = 02944) POSITIVE Topher Aguillon AustinHPV HIGH IF ABNORMAL [id number] 00:00:00* Test Item Value Reference Range Interpretation Comme nts HPV HIGH IF ABNORMAL THINPRE P (test code = 35636) SEE BELOW Topher MichelPAP TEST, THINPREP, [id number] 00:00:00* Test Item Value Reference Range Interpretation Comme nts SOURCE: (test code = 8001) Cervical/Endo cervic al SLIDES: (test code = 8011) 1 LMP: (test code = 8021) 11/18/2023 SPECIMEN ADEQUACY: (test code = 19758) (NOTE) INTERPRETATION: (test code = 96367) ASCUS/EPITH. ABNORMALITY; SEE BELOW ANIMAL TECHNICIAN: (test code = 8101) MAGDA Blancas(ASCP) PATHOLOGIST INTERPRETATION BY: (test code = 8122) Kate Diaz M.D. LOCATION: (test code = 70493) (NOTE) CPT: (test code = 8140) (NOTE) Topher Aguillon AustinHPV HIGH RISK WITH GENOTYPE, TP [REFLEX]2024-01-29 00:00:00* Test Item Value Reference Range Interpretation Comme nts HPV HIGH RISK INTERP (test c ode = 99551) POSITIVE HPV 16 (test code = 56867) NEGATIVE HPV 18 (test code = 18773) NEGATIVE HPV, HR, OTHER GENOTYPES (te st code = 80539) POSITIVE Topher Aguillon AustinHPV HIGH IF ABNORMAL [id number] 00:00:00* Test Item Value Reference Range Interpretation Comme nts HPV HIGH IF ABNORMAL THINPRE P (test code = 03114) SEE BELOW Topher Aguillon AustinPAP TEST, THINPREP, [id number] 00:00:00* Test Item Value Reference Range Interpretation Comme nts SOURCE: (test code = 8001) Cervical/Endo cervic al SLIDES: (test code = 8011) 1 LMP: (test code = 8021) 11/18/2023 SPECIMEN ADEQUACY: (test code = 68141) (NOTE) INTERPRETATION: (test code = 68404) ASCUS/EPITH. ABNORMALITY; SEE BELOW ANIMAL TECHNICIAN: (test code = 8101) MAGDA Blancas(ASCP) PATHOLOGIST INTERPRETATION BY: (test code = 8122) Kate Diaz M.D. LOCATION: (test code = 55433) (NOTE) CPT: (test code = 8140) (NOTE) Topher Aguillon AustinHPV HIGH RISK WITH GENOTYPE, TP [REFLEX]2024-01-29 00:00:00* Test Item Value Reference Range Interpretation Comme nts HPV HIGH RISK INTERP (test c ode = 55391) POSITIVE HPV 16 (test code = 70130) NEGATIVE HPV 18 (test code = 09973) NEGATIVE HPV, HR, OTHER GENOTYPES (te st code = 09112) POSITIVE Topher Aguillon AustinHPV HIGH IF ABNORMAL [id number] 00:00:00* Test Item Value Reference Range Interpretation Comme nts HPV HIGH IF ABNORMAL THINPRE P (test code = 69703) SEE BELOW Topher Aguillon AustinPAP TEST, THINPREP, [id number] 00:00:00* Test Item Value Reference Range Interpretation Comme nts SOURCE: (test code = 8001) Cervical/Endo cervic al SLIDES: (test code = 8011) 1 LMP: (test code = 8021) 11/18/2023 SPECIMEN ADEQUACY: (test code = 46892) (NOTE) INTERPRETATION: (test code = 10142) ASCUS/EPITH. ABNORMALITY; SEE BELOW ANIMAL TECHNICIAN: (test code = 8101) MAGDA Blancas(ASCP) PATHOLOGIST INTERPRETATION BY: (test code = 8122) Kate Diaz M.D. LOCATION: (test code = 22110) (NOTE) CPT: (test code = 8140) (NOTE) Topher Aguillon AustinHPV HIGH RISK WITH GENOTYPE, TP [REFLEX]2024-01-29 00:00:00* Test Item Value Reference Range Interpretation Comme nts HPV HIGH RISK INTERP (test c ode = 87990) POSITIVE HPV 16 (test code = 14888) NEGATIVE HPV 18 (test code = 39368) NEGATIVE HPV, HR, OTHER GENOTYPES (te st code = 95729) POSITIVE Topher MichelHPV HIGH IF ABNORMAL [id number] 00:00:00* Test Item Value Reference Range Interpretation Comme nts HPV HIGH IF ABNORMAL THINPRE P (test code = 92892) SEE BELOW Topher MichelPAP TEST, THINPREP, [id number] 00:00:00* Test Item Value Reference Range Interpretation Comme nts SOURCE: (test code = 8001) Cervical/Endo cervic al SLIDES: (test code = 8011) 1 LMP: (test code = 8021) 11/18/2023 SPECIMEN ADEQUACY: (test code = 71359) (NOTE) INTERPRETATION: (test code = 26905) ASCUS/EPITH. ABNORMALITY; SEE BELOW ANIMAL TECHNICIAN: (test code = 8101) MAGDA Blancas(ASCP) PATHOLOGIST INTERPRETATION BY: (test code = 8122) Kate Diaz M.D. LOCATION: (test code = 18878) (NOTE) CPT: (test code = 8140) (NOTE) Topher Aguillon AustinHPV HIGH RISK WITH GENOTYPE, TP [REFLEX]2024-01-29 00:00:00* Test Item Value Reference Range Interpretation Comme nts HPV HIGH RISK INTERP (test c ode = 95448) POSITIVE HPV 16 (test code = 06083) NEGATIVE HPV 18 (test code = 10854) NEGATIVE HPV, HR, OTHER GENOTYPES (te st code = 55045) POSITIVE Topher Aguillon AustinHPV HIGH IF ABNORMAL [id number] 00:00:00* Test Item Value Reference Range Interpretation Comme nts HPV HIGH IF ABNORMAL THINPRE P (test code = 07141) SEE BELOW Topher MichelPAP TEST, THINPREP, [id number] 00:00:00* Test Item Value Reference Range Interpretation Comme nts SOURCE: (test code = 8001) Cervical/Endo cervic al SLIDES: (test code = 8011) 1 LMP: (test code = 8021) 11/18/2023 SPECIMEN ADEQUACY: (test code = 05451) (NOTE) INTERPRETATION: (test code = 62081) ASCUS/EPITH. ABNORMALITY; SEE BELOW ANIMAL TECHNICIAN: (test code = 8101) MAGDA Blancas(ASCP) PATHOLOGIST INTERPRETATION BY: (test code = 8122) Kate Diaz M.D. LOCATION: (test code = [facility]) (NOTE) CPT: (test code = 8140) (NOTE) Topher Aguillon AustinHPV HIGH RISK WITH GENOTYPE, TP [REFLEX]2024-01-29 00:00:00* Test Item Value Reference Range Interpretation Comme nts HPV HIGH RISK INTERP (test c ode = 10779) POSITIVE HPV 16 (test code = 94106) NEGATIVE HPV 18 (test code = 65615) NEGATIVE HPV, HR, OTHER GENOTYPES (te st code = 98956) POSITIVE Topher Aguillon AustinHPV HIGH IF ABNORMAL [id number] 00:00:00* Test Item Value Reference Range Interpretation Comme nts HPV HIGH IF ABNORMAL THINPRE P (test code = 78433) SEE BELOW Topher MichelPAP TEST, THINPREP, [id number] 00:00:00* Test Item Value Reference Range Interpretation Comme nts SOURCE: (test code = 8001) Cervical/Endo cervic al SLIDES: (test code = 8011) 1 LMP: (test code = 8021) 11/18/2023 SPECIMEN ADEQUACY: (test code = 75472) (NOTE) INTERPRETATION: (test code = 26425) ASCUS/EPITH. ABNORMALITY; SEE BELOW ANIMAL TECHNICIAN: (test code = 8101) MAGDA Blancas(ASCP) PATHOLOGIST INTERPRETATION BY: (test code = 8122) Kate Diaz M.D. LOCATION: (test code = 98466) (NOTE) CPT: (test code = 8140) (NOTE) Top[facility] Aguillon AustinHPV HIGH RISK WITH GENOTYPE, TP [REFLEX]2024-01-29 00:00:00* Test Item Value Reference Range Interpretation Comme nts HPV HIGH RISK INTERP (test c ode = 88963) POSITIVE HPV 16 (test code = 45589) NEGATIVE HPV 18 (test code = 25189) NEGATIVE HPV, HR, OTHER GENOTYPES (te st code = 88140) POSITIVE Topher Aguillon AustinHPV HIGH IF ABNORMAL [id number] 00:00:00* Test Item Value Reference Range Interpretation Comme nts HPV HIGH IF ABNORMAL THINPRE P (test code = 90401) SEE BELOW Topher Aguillon AustinPAP TEST, THINPREP, [id number] 00:00:00* Test Item Value Reference Range Interpretation Comme nts SOURCE: (test code = 8001) Cervical/Endo cervic al SLIDES: (test code = 8011) 1 LMP: (test code = 8021) 11/18/2023 SPECIMEN ADEQUACY: (test code = 29613) (NOTE) INTERPRETATION: (test code = 87308) ASCUS/EPITH. ABNORMALITY; SEE BELOW ANIMAL TECHNICIAN: (test code = 8101) MAGDA Blancas(ASCP) PATHOLOGIST INTERPRETATION BY: (test code = 8122) Kate Diaz M.D. LOCATION: (test code = 80943) (NOTE) CPT: (test code = 8140) (NOTE) Top[facility] Aguillon AustinHPV HIGH RISK WITH GENOTYPE, TP [REFLEX]2024-01-29 00:00:00* Test Item Value Reference Range Interpretation Comme nts HPV HIGH RISK INTERP (test c ode = 79591) POSITIVE HPV 16 (test code = 19275) NEGATIVE HPV 18 (test code = 27137) NEGATIVE HPV, HR, OTHER GENOTYPES (te st code = 87544) POSITIVE Top[facility] Aguillon AustinHPV HIGH IF ABNORMAL [id number] 00:00:00* Test Item Value Reference Range Interpretation Comme nts HPV HIGH IF ABNORMAL THINPRE P (test code = 32554) SEE BELOW Topher Aguillon AustinPAP TEST, THINPREP, [id number] 00:00:00* Test Item Value Reference Range Interpretation Comme nts SOURCE: (test code = 8001) Cervical/Endo cervic al SLIDES: (test code = 8011) 1 LMP: (test code = 8021) 11/18/2023 SPECIMEN ADEQUACY: (test code = 58619) (NOTE) INTERPRETATION: (test code = 85630) ASCUS/EPITH. ABNORMALITY; SEE BELOW ANIMAL TECHNICIAN: (test code = 8101) MAGDA Blancas(ASCP) PATHOLOGIST INTERPRETATION BY: (test code = 8122) Kate Diaz M.D. LOCATION: (test code = 12278) (NOTE) CPT: (test code = 8140) (NOTE) Top[facility] Aguillon AustinHPV HIGH RISK WITH GENOTYPE, TP [REFLEX]2024-01-29 00:00:00* Test Item Value Reference Range Interpretation Comme nts HPV HIGH RISK INTERP (test c ode = 20864) POSITIVE HPV 16 (test code = 57131) NEGATIVE HPV 18 (test code = 32856) NEGATIVE HPV, HR, OTHER GENOTYPES (te st code = 28159) POSITIVE Top[facility] Aguillon AustinHPV HIGH IF ABNORMAL [id number] 00:00:00* Test Item Value Reference Range Interpretation Comme nts HPV HIGH IF ABNORMAL THINPRE P (test code = 72484) SEE BELOW Topher F AustinHPV HIGH IF ABNORMAL [id number] 00:00:00* Test Item Value Reference Range Interpretation Comme nts HPV HIGH IF ABNORMAL THINPRE P (test code = 69190) SEE BELOW Topher Aguillon AustinPAP TEST, THINPREP, [id number] 00:00:00* Test Item Value Reference Range Interpretation Comme nts SOURCE: (test code = 8001) Cervical/Endo cervic al SLIDES: (test code = 8011) 1 LMP: (test code = 8021) 11/18/2023 SPECIMEN ADEQUACY: (test code = 16513) (NOTE) INTERPRETATION: (test code = 71931) ASCUS/EPITH. ABNORMALITY; SEE BELOW ANIMAL TECHNICIAN: (test code = 8101) MAGDA Blancas(ASCP) PATHOLOGIST INTERPRETATION BY: (test code = 8122) Kate Diaz, M.D. LOCATION: (test code = 55131) (NOTE) CPT: (test code = 8140) (NOTE) Topher Aguillon AustinHPV HIGH RISK WITH GENOTYPE, TP [REFLEX]2024-01-29 00:00:00* Test Item Value Reference Range Interpretation Comme nts HPV HIGH RISK INTERP (test c ode = 61738) POSITIVE HPV 16 (test code = 49998) NEGATIVE HPV 18 (test code = 23302) NEGATIVE HPV, HR, OTHER GENOTYPES (te st code = 72018) POSITIVE Topher MichelPAP TEST, THINPREP, [id number] 00:00:00* Test Item Value Reference Range Interpretation Comme nts SOURCE: (test code = 8001) Cervical/Endo cervic al SLIDES: (test code = 8011) 1 LMP: (test code = 8021) 11/18/2023 SPECIMEN ADEQUACY: (test code = 09783) (NOTE) INTERPRETATION: (test code = 66755) ASCUS/EPITH. ABNORMALITY; SEE BELOW ANIMAL TECHNICIAN: (test code = 8101) MAGDA Blancas(ASCP) PATHOLOGIST INTERPRETATION BY: (test code = 8122) Kate Diaz M.D. LOCATION: (test code = 49122) (NOTE) CPT: (test code = 8140) (NOTE) Top[facility] Aguillon AustinHPV HIGH RISK WITH GENOTYPE, TP [REFLEX]2024-01-29 00:00:00* Test Item Value Reference Range Interpretation Comme nts HPV HIGH RISK INTERP (test c ode = 30639) POSITIVE HPV 16 (test code = 25305) NEGATIVE HPV 18 (test code = 68724) NEGATIVE HPV, HR, OTHER GENOTYPES (te st code = 09586) POSITIVE Topher MichelHPV HIGH IF ABNORMAL [id number] 00:00:00* Test Item Value Reference Range Interpretation Comme nts HPV HIGH IF ABNORMAL THINPRE P (test code = 02376) SEE BELOW Topher MichelPAP TEST, THINPREP, [id number] 00:00:00* Test Item Value Reference Range Interpretation Comme nts SOURCE: (test code = 8001) Cervical/Endo cervic al SLIDES: (test code = 8011) 1 LMP: (test code = 8021) 11/18/2023 SPECIMEN ADEQUACY: (test code = 84608) (NOTE) INTERPRETATION: (test code = 86271) ASCUS/EPITH. ABNORMALITY; SEE BELOW ANIMAL TECHNICIAN: (test code = 8101) MAGDA Blancas(ASCP) PATHOLOGIST INTERPRETATION BY: (test code = 8122) Kate Diaz M.D. LOCATION: (test code = 81190) (NOTE) CPT: (test code = 8140) (NOTE) Top[facility] Aguillon AustinHPV HIGH RISK WITH GENOTYPE, TP [REFLEX]2024-01-29 00:00:00* Test Item Value Reference Range Interpretation Comme nts HPV HIGH RISK INTERP (test c ode = 38471) POSITIVE HPV 16 (test code = 58467) NEGATIVE HPV 18 (test code = 04803) NEGATIVE HPV, HR, OTHER GENOTYPES (te st code = 00159) POSITIVE Top[facility] Aguillon AustinHPV HIGH IF ABNORMAL [id number] 00:00:00* Test Item Value Reference Range Interpretation Comme nts HPV HIGH IF ABNORMAL THINPRE P (test code = 09947) SEE BELOW Topher Aguillon AustinPAP TEST, THINPREP, [id number] 00:00:00* Test Item Value Reference Range Interpretation Comme nts SOURCE: (test code = 8001) Cervical/Endo cervic al SLIDES: (test code = 8011) 1 LMP: (test code = 8021) 11/18/2023 SPECIMEN ADEQUACY: (test code = 40541) (NOTE) INTERPRETATION: (test code = 67817) ASCUS/EPITH. ABNORMALITY; SEE BELOW ANIMAL TECHNICIAN: (test code = 8101) MAGDA Blancas(ASCP) PATHOLOGIST INTERPRETATION BY: (test code = 8122) Kate Diaz M.D. LOCATION: (test code = 15860) (NOTE) CPT: (test code = 8140) (NOTE) Top[facility] Aguillon AustinHPV HIGH RISK WITH GENOTYPE, TP [REFLEX]2024-01-29 00:00:00* Test Item Value Reference Range Interpretation Comme nts HPV HIGH RISK INTERP (test c ode = 73467) POSITIVE HPV 16 (test code = 26462) NEGATIVE HPV 18 (test code = 96226) NEGATIVE HPV, HR, OTHER GENOTYPES (te st code = 74101) POSITIVE Top[facility] Aguillon AustinHPV HIGH IF ABNORMAL [id number] 00:00:00* Test Item Value Reference Range Interpretation Comme nts HPV HIGH IF ABNORMAL THINPRE P (test code = 67076) SEE BELOW Topher MichelPAP TEST, THINPREP, [id number] 00:00:00* Test Item Value Reference Range Interpretation Comme nts SOURCE: (test code = 8001) Cervical/Endo cervic al SLIDES: (test code = 8011) 1 LMP: (test code = 8021) 11/18/2023 SPECIMEN ADEQUACY: (test code = 21912) (NOTE) INTERPRETATION: (test code = 91193) ASCUS/EPITH. ABNORMALITY; SEE BELOW ANIMAL TECHNICIAN: (test code = 8101) MAGDA Blancas(ASCP) PATHOLOGIST INTERPRETATION BY: (test code = 8122) Kate Diaz M.D. LOCATION: (test code = 75115) (NOTE) CPT: (test code = 8140) (NOTE) Topher MichelHPV HIGH RISK WITH GENOTYPE, TP [REFLEX]2024-01-29 00:00:00* Test Item Value Reference Range Interpretation Comme nts HPV HIGH RISK INTERP (test c ode = 53906) POSITIVE HPV 16 (test code = 21261) NEGATIVE HPV 18 (test code = 58512) NEGATIVE HPV, HR, OTHER GENOTYPES (te st code = 30248) POSITIVE Topher Aguillon AustinVAGINAL PATHOGENS DNA [id number] 12:39:50* Test Item Value Reference Range Interpretation Comme nts ALTAF SPECIES (test code = 67874) NEGATIVE NEGATIVE G. VAGINALIS (test code = 28022) POSITIVE NEGATIVE A T. VAGINALIS (test code = 95312) NEGATIVE NEGATIVE Note: The BD [facility] ir VPIII Microbial Identification Testis a DNA probe test intended for use in the detectionand identification of Altaf species, Gardnerellavaginalis and Trichomonas vaginalis nucleic acid. [id number] 05:20:19* Test Item Value Reference Range Interpretation Comme nts RPR RESULT (test code = 3501) NON-REACTIVE NON-REACTIVE RPR TITER (test code = 3500) NOT INDIC. TITER NOT INDIC. UNLESS OTHERWISE INDICATED, ALL TESTING PERFORMED AT [facility] [address] [place] [id number] GEOMAGNETICIAN: SUSAN YANEZ M.D. [place] NUMBER [id number] [facility] [place] [id number] HIV 1/2 4TH GEN, RFLX [id number] 03:33:35* Test Item Value Reference Range Interpretation Comme nts HIV 1/2 4TH GEN, RFLX CONF ( test code = 3514) NON-REACTIVE NON-REACTIVE HEPATITIS PANEL, [id number] 03:33:35* Test Item Value Reference Range Interpretation Comme nts HEPATITIS A IgM (test code = 13261) NON-REACTIVE NON-REACTIVE HEPATITIS B CORE IgM (test code = 4644) NON-REACTIVE NON-REACTIVE HEPATITIS B SURF AG (test code = 2739) NON-REACTIVE NON-REACTIVE HEPATITIS C ANTIBODY (test code = 4675) NON-REACTIVE NON-REACTIVE INTERPRETATION HEPATITIS A: (test code = 2552) (NOTE) Hepatitis A serology shows no evidence of acute hepatitis A. INTERPRETATION HEPATITIS B: (test code = 33636) (NOTE) Hepatitis B serology shows no evidence of acute hepatitis B andno indication of exposure to hepatitis B virus in the previous raegan eight months. INTERPRETATION HEPATITIS C: (test code = 89522) (NOTE) Hepatitis C serology shows no evidence of exposure to hepatitisC virus at this time. It can take up to 12 months after exposure tothe hepatitis C virus for antibodies to become detectable in the blood in certain patients. VAGINAL PATHOGENS DNA [id number] 00:00:00* Test Item Value Reference Range Interpretation Comme nts ALTAF SPECIES (test code = 45861) NEGATIVE G. VAGINALIS (test code = 77540) POSITIVE T. VAGINALIS (test code = 98557) NEGATIVE Topher MichelHIV 1/2 4TH GEN, RFLX [id number] 00:00:00* Test Item Value Reference Range Interpretation Comme nts HIV 1/2 4TH GEN, RFLX CONF ( test code = 3514) NON-REACTIVE Topher Pal MichelACUTE HEPATITIS [id number] 00:00:00* Test Item Value Reference Range Interpretation Comme nts HEPATITIS A IgM (test code = 94213) NON-REACTIVE HEPATITIS B CORE IgM (test c ode = 4644) NON-REACTIVE HEPATITIS B SURF AG (test co de = 2739) NON-REACTIVE HEPATITIS C ANTIBODY (test c ode = 4675) NON-REACTIVE INTERPRETATION HEPATITIS A: (test code = 2552) (NOTE) INTERPRETATION HEPATITIS B: (test code = 57281) (NOTE) INTERPRETATION HEPATITIS C: (test code = 53853) (NOTE) Topher [id number] 00:00:00* Test Item Value Reference Range Interpretation Comme nts RPR RESULT (test code = 3501) NON-REACTIVE RPR TITER (test code = 3500) NOT INDIC. TITER Topher MichelVAGINAL PATHOGENS DNA [id number] 00:00:00* Test Item Value Reference Range Interpretation Comme nts ALTAF SPECIES (test code = ) NEGATIVE G. VAGINALIS (test code = 37303) POSITIVE T. VAGINALIS (test code = 20108) NEGATIVE Topher MichelHIV 1/2 4TH GEN, RFLX [id number] 00:00:00* Test Item Value Reference Range Interpretation Comme nts HIV 1/2 4TH GEN, RFLX CONF ( test code = 3514) NON-REACTIVE Topher Panda HEPATITIS [id number] 00:00:00* Test Item Value Reference Range Interpretation Comme nts HEPATITIS A IgM (test code = 62221) NON-REACTIVE HEPATITIS B CORE IgM (test c ode = 4644) NON-REACTIVE HEPATITIS B SURF AG (test co de = 2739) NON-REACTIVE HEPATITIS C ANTIBODY (test c ode = 4675) NON-REACTIVE INTERPRETATION HEPATITIS A: (test code = 2552) (NOTE) INTERPRETATION HEPATITIS B: (test code = 16687) (NOTE) INTERPRETATION HEPATITIS C: (test code = 73593) (NOTE) Topher [id number] 00:00:00* Test Item Value Reference Range Interpretation Comme nts RPR RESULT (test code = 3501) NON-REACTIVE RPR TITER (test code = 3500) NOT INDIC. TITER Topher MichelVAGINAL PATHOGENS DNA [id number] 00:00:00* Test Item Value Reference Range Interpretation Comme nts ALTAF SPECIES (test code = ) NEGATIVE G. VAGINALIS (test code = 87176) POSITIVE T. VAGINALIS (test code = 65943) NEGATIVE Topher MichelHIV 1/2 4TH GEN, RFLX [id number] 00:00:00* Test Item Value Reference Range Interpretation Comme nts HIV 1/2 4TH GEN, RFLX CONF ( test code = 3514) NON-REACTIVE Topher MichelACUTE HEPATITIS [id number] 00:00:00* Test Item Value Reference Range Interpretation Comme nts HEPATITIS A IgM (test code = 79353) NON-REACTIVE HEPATITIS B CORE IgM (test c ode = 4644) NON-REACTIVE HEPATITIS B SURF AG (test co de = 2739) NON-REACTIVE HEPATITIS C ANTIBODY (test c ode = 4675) NON-REACTIVE INTERPRETATION HEPATITIS A: (test code = 2552) (NOTE) INTERPRETATION HEPATITIS B: (test code = 95517) (NOTE) INTERPRETATION HEPATITIS C: (test code = 74286) (NOTE) Topher [id number] 00:00:00* Test Item Value Reference Range Interpretation Comme nts RPR RESULT (test code = 3501) NON-REACTIVE RPR TITER (test code = 3500) NOT INDIC. TITER Topher MichelVAGINAL PATHOGENS DNA [id number] 00:00:00* Test Item Value Reference Range Interpretation Comme nts ALTAF SPECIES (test code = 08468) NEGATIVE G. VAGINALIS (test code = 94750) POSITIVE T. VAGINALIS (test code = 33344) NEGATIVE Topher Aguillon AustinHIV 1/2 4TH GEN, RFLX [id number] 00:00:00* Test Item Value Reference Range Interpretation Comme nts HIV 1/2 4TH GEN, RFLX CONF ( test code = 3514) NON-REACTIVE Topher MichelACUTE HEPATITIS [id number] 00:00:00* Test Item Value Reference Range Interpretation Comme nts HEPATITIS A IgM (test code = 14993) NON-REACTIVE HEPATITIS B CORE IgM (test c ode = 4644) NON-REACTIVE HEPATITIS B SURF AG (test co de = 2739) NON-REACTIVE HEPATITIS C ANTIBODY (test c ode = 4675) NON-REACTIVE INTERPRETATION HEPATITIS A: (test code = 2552) (NOTE) INTERPRETATION HEPATITIS B: (test code = 55691) (NOTE) INTERPRETATION HEPATITIS C: (test code = 40917) (NOTE) Topher [id number] 00:00:00* Test Item Value Reference Range Interpretation Comme nts RPR RESULT (test code = 3501) NON-REACTIVE RPR TITER (test code = 3500) NOT INDIC. TITER Topher MichelVAGINAL PATHOGENS DNA [id number] 00:00:00* Test Item Value Reference Range Interpretation Comme nts ALTAF SPECIES (test code = ) NEGATIVE G. VAGINALIS (test code = 96987) POSITIVE T. VAGINALIS (test code = 97569) NEGATIVE Topher MichelHIV 1/2 4TH GEN, RFLX [id number] 00:00:00* Test Item Value Reference Range Interpretation Comme nts HIV 1/2 4TH GEN, RFLX CONF ( test code = 3514) NON-REACTIVE Topher MichelACUTE HEPATITIS [id number] 00:00:00* Test Item Value Reference Range Interpretation Comme nts HEPATITIS A IgM (test code = 41716) NON-REACTIVE HEPATITIS B CORE IgM (test c ode = 4644) NON-REACTIVE HEPATITIS B SURF AG (test co de = 2739) NON-REACTIVE HEPATITIS C ANTIBODY (test c ode = 4675) NON-REACTIVE INTERPRETATION HEPATITIS A: (test code = 2552) (NOTE) INTERPRETATION HEPATITIS B: (test code = 00800) (NOTE) INTERPRETATION HEPATITIS C: (test code = 99163) (NOTE) Topher [id number] 00:00:00* Test Item Value Reference Range Interpretation Comme nts RPR RESULT (test code = 3501) NON-REACTIVE RPR TITER (test code = 3500) NOT INDIC. TITER Topher MichelVAGINAL PATHOGENS DNA [id number] 00:00:00* Test Item Value Reference Range Interpretation Comme nts ALTAF SPECIES (test code = ) NEGATIVE G. VAGINALIS (test code = 06767) POSITIVE T. VAGINALIS (test code = 74220) NEGATIVE Topher MichelHIV 1/2 4TH GEN, RFLX [id number] 00:00:00* Test Item Value Reference Range Interpretation Comme nts HIV 1/2 4TH GEN, RFLX CONF ( test code = 3514) NON-REACTIVE Topher MichelACUTE HEPATITIS [id number] 00:00:00* Test Item Value Reference Range Interpretation Comme nts HEPATITIS A IgM (test code = 07983) NON-REACTIVE HEPATITIS B CORE IgM (test c ode = 4644) NON-REACTIVE HEPATITIS B SURF AG (test co de = 2739) NON-REACTIVE HEPATITIS C ANTIBODY (test c ode = 4675) NON-REACTIVE INTERPRETATION HEPATITIS A: (test code = 2552) (NOTE) INTERPRETATION HEPATITIS B: (test code = 42092) (NOTE) INTERPRETATION HEPATITIS C: (test code = 84827) (NOTE) Topher [id number] 00:00:00* Test Item Value Reference Range Interpretation Comme nts RPR RESULT (test code = 3501) NON-REACTIVE RPR TITER (test code = 3500) NOT INDIC. TITER Topher MichelVAGINAL PATHOGENS DNA [id number] 00:00:00* Test Item Value Reference Range Interpretation Comme nts ALTAF SPECIES (test code = ) NEGATIVE G. VAGINALIS (test code = ) POSITIVE T. VAGINALIS (test code = ) NEGATIVE Topher MichelHIV 1/2 4TH GEN, RFLX [id number] 00:00:00* Test Item Value Reference Range Interpretation Comme nts HIV 1/2 4TH GEN, RFLX CONF ( test code = 3514) NON-REACTIVE Topher MichelACUTE HEPATITIS [id number] 00:00:00* Test Item Value Reference Range Interpretation Comme nts HEPATITIS A IgM (test code = 75747) NON-REACTIVE HEPATITIS B CORE IgM (test c ode = 4644) NON-REACTIVE HEPATITIS B SURF AG (test co de = 2739) NON-REACTIVE HEPATITIS C ANTIBODY (test c ode = 4675) NON-REACTIVE INTERPRETATION HEPATITIS A: (test code = 2552) (NOTE) INTERPRETATION HEPATITIS B: (test code = 96526) (NOTE) INTERPRETATION HEPATITIS C: (test code = 26018) (NOTE) Topher [id number] 00:00:00* Test Item Value Reference Range Interpretation Comme nts RPR RESULT (test code = 3501) NON-REACTIVE RPR TITER (test code = 3500) NOT INDIC. TITER Topher MichelVAGINAL PATHOGENS DNA [id number] 00:00:00* Test Item Value Reference Range Interpretation Comme nts ALTAF SPECIES (test code = ) NEGATIVE G. VAGINALIS (test code = 93611) POSITIVE T. VAGINALIS (test code = 81405) NEGATIVE Topher MichelHIV 1/2 4TH GEN, RFLX [id number] 00:00:00* Test Item Value Reference Range Interpretation Comme nts HIV 1/2 4TH GEN, RFLX CONF ( test code = 3514) NON-REACTIVE Topher MichelACUTE HEPATITIS [id number] 00:00:00* Test Item Value Reference Range Interpretation Comme nts HEPATITIS A IgM (test code = 61620) NON-REACTIVE HEPATITIS B CORE IgM (test c ode = 4644) NON-REACTIVE HEPATITIS B SURF AG (test co de = 2739) NON-REACTIVE HEPATITIS C ANTIBODY (test c ode = 4675) NON-REACTIVE INTERPRETATION HEPATITIS A: (test code = 2552) (NOTE) INTERPRETATION HEPATITIS B: (test code = 55871) (NOTE) INTERPRETATION HEPATITIS C: (test code = 70927) (NOTE) Topher [id number] 00:00:00* Test Item Value Reference Range Interpretation Comme nts RPR RESULT (test code = 3501) NON-REACTIVE RPR TITER (test code = 3500) NOT INDIC. TITER Topher MichelVAGINAL PATHOGENS DNA [id number] 00:00:00* Test Item Value Reference Range Interpretation Comme nts ALTAF SPECIES (test code = 53817) NEGATIVE G. VAGINALIS (test code = 82625) POSITIVE T. VAGINALIS (test code = 85890) NEGATIVE Topher MichelHIV 1/2 4TH GEN, RFLX [id number] 00:00:00* Test Item Value Reference Range Interpretation Comme nts HIV 1/2 4TH GEN, RFLX CONF ( test code = 3514) NON-REACTIVE Topher MichelACUTE HEPATITIS [id number] 00:00:00* Test Item Value Reference Range Interpretation Comme nts HEPATITIS A IgM (test code = 91873) NON-REACTIVE HEPATITIS B CORE IgM (test c ode = 4644) NON-REACTIVE HEPATITIS B SURF AG (test co de = 2739) NON-REACTIVE HEPATITIS C ANTIBODY (test c ode = 4675) NON-REACTIVE INTERPRETATION HEPATITIS A: (test code = 2552) (NOTE) INTERPRETATION HEPATITIS B: (test code = 16254) (NOTE) INTERPRETATION HEPATITIS C: (test code = 96388) (NOTE) Topher [id number] 00:00:00* Test Item Value Reference Range Interpretation Comme nts RPR RESULT (test code = 3501) NON-REACTIVE RPR TITER (test code = 3500) NOT INDIC. TITER Topher Aguillon AustinVAGINAL PATHOGENS DNA [id number] 00:00:00* Test Item Value Reference Range Interpretation Comme nts ALTAF SPECIES (test code = ) NEGATIVE G. VAGINALIS (test code = 54823) POSITIVE T. VAGINALIS (test code = 45702) NEGATIVE Topher MichelHIV 1/2 4TH GEN, RFLX [id number] 00:00:00* Test Item Value Reference Range Interpretation Comme nts HIV 1/2 4TH GEN, RFLX CONF ( test code = 3514) NON-REACTIVE Topher MichelACUTE HEPATITIS [id number] 00:00:00* Test Item Value Reference Range Interpretation Comme nts HEPATITIS A IgM (test code = 53386) NON-REACTIVE HEPATITIS B CORE IgM (test c ode = 4644) NON-REACTIVE HEPATITIS B SURF AG (test co de = 2739) NON-REACTIVE HEPATITIS C ANTIBODY (test c ode = 4675) NON-REACTIVE INTERPRETATION HEPATITIS A: (test code = 2552) (NOTE) INTERPRETATION HEPATITIS B: (test code = 02446) (NOTE) INTERPRETATION HEPATITIS C: (test code = 79621) (NOTE) Topher [id number] 00:00:00* Test Item Value Reference Range Interpretation Comme nts RPR RESULT (test code = 3501) NON-REACTIVE RPR TITER (test code = 3500) NOT INDIC. TITER Topher MichelVAGINAL PATHOGENS DNA [id number] 00:00:00* Test Item Value Reference Range Interpretation Comme nts ALTAF SPECIES (test code = ) NEGATIVE G. VAGINALIS (test code = 13103) POSITIVE T. VAGINALIS (test code = 80070) NEGATIVE Topher Aguillon AustinHIV 1/2 4TH GEN, RFLX [id number] 00:00:00* Test Item Value Reference Range Interpretation Comme nts HIV 1/2 4TH GEN, RFLX CONF ( test code = 3514) NON-REACTIVE Topher MichelACUTE HEPATITIS [id number] 00:00:00* Test Item Value Reference Range Interpretation Comme nts HEPATITIS A IgM (test code = 81237) NON-REACTIVE HEPATITIS B CORE IgM (test c ode = 4644) NON-REACTIVE HEPATITIS B SURF AG (test co de = 2739) NON-REACTIVE HEPATITIS C ANTIBODY (test c ode = 4675) NON-REACTIVE INTERPRETATION HEPATITIS A: (test code = 2552) (NOTE) INTERPRETATION HEPATITIS B: (test code = 27644) (NOTE) INTERPRETATION HEPATITIS C: (test code = 84817) (NOTE) Topher [id number] 00:00:00* Test Item Value Reference Range Interpretation Comme nts RPR RESULT (test code = 3501) NON-REACTIVE RPR TITER (test code = 3500) NOT INDIC. TITER Topher MichelVAGINAL PATHOGENS DNA [id number] 00:00:00* Test Item Value Reference Range Interpretation Comme nts ALTAF SPECIES (test code = ) NEGATIVE G. VAGINALIS (test code = ) POSITIVE T. VAGINALIS (test code = ) NEGATIVE Topher MichelHIV 10/16 4TH GEN, RFLX [id number] 00:00:00* Test Item Value Reference Range Interpretation Comme nts HIV 1/2 4TH GEN, RFLX CONF ( test code = 3514) NON-REACTIVE Topher MichelACUTE HEPATITIS [id number] 00:00:00* Test Item Value Reference Range Interpretation Comme nts HEPATITIS A IgM (test code = 47516) NON-REACTIVE HEPATITIS B CORE IgM (test c ode = 4644) NON-REACTIVE HEPATITIS B SURF AG (test co de = 2739) NON-REACTIVE HEPATITIS C ANTIBODY (test c ode = 4675) NON-REACTIVE INTERPRETATION HEPATITIS A: (test code = 2552) (NOTE) INTERPRETATION HEPATITIS B: (test code = 04031) (NOTE) INTERPRETATION HEPATITIS C: (test code = 56033) (NOTE) Topher [id number] 00:00:00* Test Item Value Reference Range Interpretation Comme nts RPR RESULT (test code = 3501) NON-REACTIVE RPR TITER (test code = 3500) NOT INDIC. TITER Topher MichelVAGINAL PATHOGENS DNA [id number] 00:00:00* Test Item Value Reference Range Interpretation Comme nts ALTAF SPECIES (test code = ) NEGATIVE G. VAGINALIS (test code = 82607) POSITIVE T. VAGINALIS (test code = 80187) NEGATIVE Topher MichelHIV 1/2 4TH GEN, RFLX [id number] 00:00:00* Test Item Value Reference Range Interpretation Comme nts HIV 1/2 4TH GEN, RFLX CONF ( test code = 3514) NON-REACTIVE Topher MichelACUTE HEPATITIS [id number] 00:00:00* Test Item Value Reference Range Interpretation Comme nts HEPATITIS A IgM (test code = 48895) NON-REACTIVE HEPATITIS B CORE IgM (test c ode = 4644) NON-REACTIVE HEPATITIS B SURF AG (test co de = 2739) NON-REACTIVE HEPATITIS C ANTIBODY (test c ode = 4675) NON-REACTIVE INTERPRETATION HEPATITIS A: (test code = 2552) (NOTE) INTERPRETATION HEPATITIS B: (test code = 51573) (NOTE) INTERPRETATION HEPATITIS C: (test code = 52024) (NOTE) Topher [id number] 00:00:00* Test Item Value Reference Range Interpretation Comme nts RPR RESULT (test code = 3501) NON-REACTIVE RPR TITER (test code = 3500) NOT INDIC. TITER Topher MichelVAGINAL PATHOGENS DNA [id number] 00:00:00* Test Item Value Reference Range Interpretation Comme nts ALTAF SPECIES (test code = 82082) NEGATIVE G. VAGINALIS (test code = 17003) POSITIVE T. VAGINALIS (test code = 69600) NEGATIVE Topher iMchelHIV 1/2 4TH GEN, RFLX [id number] 00:00:00* Test Item Value Reference Range Interpretation Comme nts HIV 1/2 4TH GEN, RFLX CONF ( test code = 3514) NON-REACTIVE Topher MichelVAGINAL PATHOGENS DNA [id number] 00:00:00* Test Item Value Reference Range Interpretation Comme nts ALTAF SPECIES (test code = 47602) NEGATIVE G. VAGINALIS (test code = 71280) POSITIVE T. VAGINALIS (test code = 78897) NEGATIVE Topher MichelACUTE HEPATITIS [id number] 00:00:00* Test Item Value Reference Range Interpretation Comme nts HEPATITIS A IgM (test code = 47366) NON-REACTIVE HEPATITIS B CORE IgM (test c ode = 4644) NON-REACTIVE HEPATITIS B SURF AG (test co de = 2739) NON-REACTIVE HEPATITIS C ANTIBODY (test c ode = 4675) NON-REACTIVE INTERPRETATION HEPATITIS A: (test code = 2552) (NOTE) INTERPRETATION HEPATITIS B: (test code = 80242) (NOTE) INTERPRETATION HEPATITIS C: (test code = 92655) (NOTE) Topher [id number] 00:00:00* Test Item Value Reference Range Interpretation Comme nts RPR RESULT (test code = 3501) NON-REACTIVE RPR TITER (test code = 3500) NOT INDIC. TITER Topher MichelHIV 1/2 4TH GEN, RFLX [id number] 00:00:00* Test Item Value Reference Range Interpretation Comme nts HIV 1/2 4TH GEN, RFLX CONF ( test code = 3514) NON-REACTIVE Topher MichelACUTE HEPATITIS [id number] 00:00:00* Test Item Value Reference Range Interpretation Comme nts HEPATITIS A IgM (test code = 83724) NON-REACTIVE HEPATITIS B CORE IgM (test c ode = 4644) NON-REACTIVE HEPATITIS B SURF AG (test co de = 2739) NON-REACTIVE HEPATITIS C ANTIBODY (test c ode = 4675) NON-REACTIVE INTERPRETATION HEPATITIS A: (test code = 2552) (NOTE) INTERPRETATION HEPATITIS B: (test code = 31976) (NOTE) INTERPRETATION HEPATITIS C: (test code = 91631) (NOTE) Topher [id number] 00:00:00* Test Item Value Reference Range Interpretation Comme nts RPR RESULT (test code = 3501) NON-REACTIVE RPR TITER (test code = 3500) NOT INDIC. TITER Topher MichelVAGINAL PATHOGENS DNA [id number] 00:00:00* Test Item Value Reference Range Interpretation Comme nts ALTAF SPECIES (test code = 05087) NEGATIVE G. VAGINALIS (test code = 02868) POSITIVE T. VAGINALIS (test code = 75428) NEGATIVE Topher MichelHIV 1/2 4TH GEN, RFLX [id number] 00:00:00* Test Item Value Reference Range Interpretation Comme nts HIV 1/2 4TH GEN, RFLX CONF ( test code = 3514) NON-REACTIVE Topher MichelACUTE HEPATITIS [id number] 00:00:00* Test Item Value Reference Range Interpretation Comme nts HEPATITIS A IgM (test code = 61947) NON-REACTIVE HEPATITIS B CORE IgM (test c ode = 4644) NON-REACTIVE HEPATITIS B SURF AG (test co de = 2739) NON-REACTIVE HEPATITIS C ANTIBODY (test c ode = 4675) NON-REACTIVE INTERPRETATION HEPATITIS A: (test code = 2552) (NOTE) INTERPRETATION HEPATITIS B: (test code = 92687) (NOTE) INTERPRETATION HEPATITIS C: (test code = 93469) (NOTE) Topher [id number] 00:00:00* Test Item Value Reference Range Interpretation Comme nts RPR RESULT (test code = 3501) NON-REACTIVE RPR TITER (test code = 3500) NOT INDIC. TITER Topher MichelVAGINAL PATHOGENS DNA [id number] 00:00:00* Test Item Value Reference Range Interpretation Comme nts ALTAF SPECIES (test code = ) NEGATIVE G. VAGINALIS (test code = 42142) POSITIVE T. VAGINALIS (test code = 64068) NEGATIVE Topher MichelHIV 1/2 4TH GEN, RFLX [id number] 00:00:00* Test Item Value Reference Range Interpretation Comme nts HIV 1/2 4TH GEN, RFLX CONF ( test code = 3514) NON-REACTIVE Topher MichelACUTE HEPATITIS [id number] 00:00:00* Test Item Value Reference Range Interpretation Comme nts HEPATITIS A IgM (test code = 36709) NON-REACTIVE HEPATITIS B CORE IgM (test c ode = 4644) NON-REACTIVE HEPATITIS B SURF AG (test co de = 2739) NON-REACTIVE HEPATITIS C ANTIBODY (test c ode = 4675) NON-REACTIVE INTERPRETATION HEPATITIS A: (test code = 2552) (NOTE) INTERPRETATION HEPATITIS B: (test code = 82142) (NOTE) INTERPRETATION HEPATITIS C: (test code = 00894) (NOTE) Topher [id number] 00:00:00* Test Item Value Reference Range Interpretation Comme nts RPR RESULT (test code = 3501) NON-REACTIVE RPR TITER (test code = 3500) NOT INDIC. TITER Topher MichelVAGINAL PATHOGENS DNA [id number] 00:00:00* Test Item Value Reference Range Interpretation Comme nts ALTAF SPECIES (test code = ) NEGATIVE G. VAGINALIS (test code = 82343) POSITIVE T. VAGINALIS (test code = 41108) NEGATIVE Topher MichelHIV 1/2 4TH GEN, RFLX [id number] 00:00:00* Test Item Value Reference Range Interpretation Comme nts HIV 1/2 4TH GEN, RFLX CONF ( test code = 3514) NON-REACTIVE Topher MichelACUTE HEPATITIS [id number] 00:00:00* Test Item Value Reference Range Interpretation Comme nts HEPATITIS A IgM (test code = 73948) NON-REACTIVE HEPATITIS B CORE IgM (test c ode = 4644) NON-REACTIVE HEPATITIS B SURF AG (test co de = 2739) NON-REACTIVE HEPATITIS C ANTIBODY (test c ode = 4675) NON-REACTIVE INTERPRETATION HEPATITIS A: (test code = 2552) (NOTE) INTERPRETATION HEPATITIS B: (test code = 35326) (NOTE) INTERPRETATION HEPATITIS C: (test code = 19724) (NOTE) Topher [id number] 00:00:00* Test Item Value Reference Range Interpretation Comme nts RPR RESULT (test code = 3501) NON-REACTIVE RPR TITER (test code = 3500) NOT INDIC. TITER Topher Juarez, [id number] 14:23:44SPECIMEN NUMBER: [id number] CULTURE, URINE SPECIMEN NUMBER: [id number] SOURCE: URINE REPORT STATUS: FINAL ISOLATE NUMBER [...] PERFORMED AT [facility] [address] [place] [address] GEOMAGNETICIAN: SUSAN YANEZ M.D. CLIA NUMBER [id number] [facility] [place] [id number], [id number] 00:00:00* Test Item Value Reference Range Interpretation Comme nts CULTURE, URINE (test code = 68464) SPECIMEN NUMBER: [id number] Topher Juarez, [id number] 00:00:00* Test Item Value Reference Range Interpretation Comme nts CULTURE, URINE (test code = 48305) SPECIMEN NUMBER: [id number] Topher Juarez [id number] 00:00:00* Test Item Value Reference Range Interpretation Comme nts CULTURE, URINE (test code = 52229) SPECIMEN NUMBER: [id number] Topher Juarez [id number] 00:00:00* Test Item Value Reference Range Interpretation Comme nts CULTURE, URINE (test code = 97700) SPECIMEN NUMBER: [id number] Topher Juarez [id number] 00:00:00* Test Item Value Reference Range Interpretation Comme nts CULTURE, URINE (test code = 30909) SPECIMEN NUMBER: [id number] Topher Juarez [id number] 00:00:00* Test Item Value Reference Range Interpretation Comme nts CULTURE, URINE (test code = 35809) SPECIMEN NUMBER: [id number] Topher Juarez [id number] 00:00:00* Test Item Value Reference Range Interpretation Comme nts CULTURE, URINE (test code = 20441) SPECIMEN NUMBER: [id number] Topher WellsLTKAYLEE [id number] 00:00:00* Test Item Value Reference Range Interpretation Comme nts CULTURE, URINE (test code = 83997) SPECIMEN NUMBER: [id number] Topher Juarez, [id number] 00:00:00* Test Item Value Reference Range Interpretation Comme nts CULTURE, URINE (test code = 84813) SPECIMEN NUMBER: [id number] Topher WellsLTKAYLEE, [id number] 00:00:00* Test Item Value Reference Range Interpretation Comme nts CULTURE, URINE (test code = 90618) SPECIMEN NUMBER: [id number] Topher WellsLTKAYLEE, [id number] 00:00:00* Test Item Value Reference Range Interpretation Comme nts CULTURE, URINE (test code = 92077) SPECIMEN NUMBER: [id number] Topher Juarez, [id number] 00:00:00* Test Item Value Reference Range Interpretation Comme nts CULTURE, URINE (test code = 44983) SPECIMEN NUMBER: [id number] Topher WellsLTKAYLEE [id number] 00:00:00* Test Item Value Reference Range Interpretation Comme nts CULTURE, URINE (test code = 71218) SPECIMEN NUMBER: [id number] Topher WellsLTURE, [id number] 00:00:00* Test Item Value Reference Range Interpretation Comme nts CULTURE, URINE (test code = 99692) SPECIMEN NUMBER: [id number] Topehr Juarez, [id number] 00:00:00* Test Item Value Reference Range Interpretation Comme nts CULTURE, URINE (test code = 93615) SPECIMEN NUMBER: [id number] Topher MichelCULTURE, [id number] 00:00:00* Test Item Value Reference Range Interpretation Comme nts CULTURE, URINE (test code = 53216) SPECIMEN NUMBER: [id number] Topher WellsLTKAYLEE, [id number] 00:00:00* Test Item Value Reference Range Interpretation Comme nts CULTURE, URINE (test code = 97823) SPECIMEN NUMBER: [id number] Topher WellsLTURE, [id number] 00:00:00* Test Item Value Reference Range Interpretation Comme nts CULTURE, URINE (test code = 80427) SPECIMEN NUMBER: [id number] Topher Aguillon AustinTRICHOMONAS, URINE, [id number] 00:00:00* Test Item Value Reference Range Interpretation Comme nts TRICHOMONAS, NAAT, URINE (te st code = 93134) NEGATIVE Topher Aguillon AustinCT/NG, TMA, [id number] 00:00:00* Test Item Value Reference Range Interpretation Comme nts CHLAMYDIA, NAAT, URINE (test code = 36754) NEGATIVE GONORRHEA, NAAT, URINE (test code = 18026) NEGATIVE Topher Aguillon AustinTRICHOMONAS, URINE, [id number] 00:00:00* Test Item Value Reference Range Interpretation Comme nts TRICHOMONAS, NAAT, URINE (te st code = 08009) NEGATIVE Topher Aguillon AustinCT/NG, TMA, [id number] 00:00:00* Test Item Value Reference Range Interpretation Comme nts CHLAMYDIA, NAAT, URINE (test code = 23884) NEGATIVE GONORRHEA, NAAT, URINE (test code = 01711) NEGATIVE Topher F AustinTRICHOMONAS, URINE, [id number] 00:00:00* Test Item Value Reference Range Interpretation Comme nts TRICHOMONAS, NAAT, URINE (te st code = 24994) NEGATIVE Topher F AustinCT/NG, TMA, [id number] 00:00:00* Test Item Value Reference Range Interpretation Comme nts CHLAMYDIA, NAAT, URINE (test code = 45355) NEGATIVE GONORRHEA, NAAT, URINE (test code = 73954) NEGATIVE Topher F AustinTRICHOMONAS, URINE, [id number] 00:00:00* Test Item Value Reference Range Interpretation Comme nts TRICHOMONAS, NAAT, URINE (te st code = 64335) NEGATIVE Topher F AustinCT/NG, TMA, [id number] 00:00:00* Test Item Value Reference Range Interpretation Comme nts CHLAMYDIA, NAAT, URINE (test code = 81051) NEGATIVE GONORRHEA, NAAT, URINE (test code = 32823) NEGATIVE Topher F AustinTRICHOMONAS, URINE, [id number] 00:00:00* Test Item Value Reference Range Interpretation Comme nts TRICHOMONAS, NAAT, URINE (te st code = 14796) NEGATIVE Topher F AustinCT/NG, TMA, [id number] 00:00:00* Test Item Value Reference Range Interpretation Comme nts CHLAMYDIA, NAAT, URINE (test code = 78682) NEGATIVE GONORRHEA, NAAT, URINE (test code = 31228) NEGATIVE Topher F AustinTRICHOMONAS, URINE, [id number] 00:00:00* Test Item Value Reference Range Interpretation Comme nts TRICHOMONAS, NAAT, URINE (te st code = 18006) NEGATIVE Topher F AustinCT/NG, TMA, [id number] 00:00:00* Test Item Value Reference Range Interpretation Comme nts CHLAMYDIA, NAAT, URINE (test code = 12844) NEGATIVE GONORRHEA, NAAT, URINE (test code = 56122) NEGATIVE Topher F AustinTRICHOMONAS, URINE, [id number] 00:00:00* Test Item Value Reference Range Interpretation Comme nts TRICHOMONAS, NAAT, URINE (te st code = 22079) NEGATIVE Topher F AustinCT/NG, TMA, [id number] 00:00:00* Test Item Value Reference Range Interpretation Comme nts CHLAMYDIA, NAAT, URINE (test code = 21281) NEGATIVE GONORRHEA, NAAT, URINE (test code = 36594) NEGATIVE Topher F AustinTRICHOMONAS, URINE, [id number] 00:00:00* Test Item Value Reference Range Interpretation Comme nts TRICHOMONAS, NAAT, URINE (te st code = 33813) NEGATIVE Topher F AustinCT/NG, TMA, [id number] 00:00:00* Test Item Value Reference Range Interpretation Comme nts CHLAMYDIA, NAAT, URINE (test code = 87554) NEGATIVE GONORRHEA, NAAT, URINE (test code = 73278) NEGATIVE Topher F AustinTRICHOMONAS, URINE, [id number] 00:00:00* Test Item Value Reference Range Interpretation Comme nts TRICHOMONAS, NAAT, URINE (te st code = 25146) NEGATIVE Topher F AustinCT/NG, TMA, [id number] 00:00:00* Test Item Value Reference Range Interpretation Comme nts CHLAMYDIA, NAAT, URINE (test code = 83676) NEGATIVE GONORRHEA, NAAT, URINE (test code = 84375) NEGATIVE Topher F AustinTRICHOMONAS, URINE, [id number] 00:00:00* Test Item Value Reference Range Interpretation Comme nts TRICHOMONAS, NAAT, URINE (te st code = 63685) NEGATIVE Topher F AustinCT/NG, TMA, [id number] 00:00:00* Test Item Value Reference Range Interpretation Comme nts CHLAMYDIA, NAAT, URINE (test code = 09639) NEGATIVE GONORRHEA, NAAT, URINE (test code = 23368) NEGATIVE Topher F AustinTRICHOMONAS, URINE, [id number] 00:00:00* Test Item Value Reference Range Interpretation Comme nts TRICHOMONAS, NAAT, URINE (te st code = 56989) NEGATIVE Topher F AustinCT/NG, TMA, [id number] 00:00:00* Test Item Value Reference Range Interpretation Comme nts CHLAMYDIA, NAAT, URINE (test code = 26567) NEGATIVE GONORRHEA, NAAT, URINE (test code = 96989) NEGATIVE Topher F AustinTRICHOMONAS, URINE, [id number] 00:00:00* Test Item Value Reference Range Interpretation Comme nts TRICHOMONAS, NAAT, URINE (te st code = 88034) NEGATIVE Topher F AustinCT/NG, TMA, [id number] 00:00:00* Test Item Value Reference Range Interpretation Comme nts CHLAMYDIA, NAAT, URINE (test code = 63083) NEGATIVE GONORRHEA, NAAT, URINE (test code = 07674) NEGATIVE Topher F AustinTRICHOMONAS, URINE, [id number] 00:00:00* Test Item Value Reference Range Interpretation Comme nts TRICHOMONAS, NAAT, URINE (te st code = 62337) NEGATIVE Topher F AustinCT/NG, TMA, [id number] 00:00:00* Test Item Value Reference Range Interpretation Comme nts CHLAMYDIA, NAAT, URINE (test code = 27975) NEGATIVE GONORRHEA, NAAT, URINE (test code = 60536) NEGATIVE Topher F AustinTRICHOMONAS, URINE, [id number] 00:00:00* Test Item Value Reference Range Interpretation Comme nts TRICHOMONAS, NAAT, URINE (te st code = 42543) NEGATIVE Topher F AustinTRICHOMONAS, URINE, [id number] 00:00:00* Test Item Value Reference Range Interpretation Comme nts TRICHOMONAS, NAAT, URINE (te st code = 51601) NEGATIVE Topher F AustinCT/NG, TMA, [id number] 00:00:00* Test Item Value Reference Range Interpretation Comme nts CHLAMYDIA, NAAT, URINE (test code = 03257) NEGATIVE GONORRHEA, NAAT, URINE (test code = 72214) NEGATIVE Topher F AustinCT/NG, TMA, [id number] 00:00:00* Test Item Value Reference Range Interpretation Comme nts CHLAMYDIA, NAAT, URINE (test code = 76486) NEGATIVE GONORRHEA, NAAT, URINE (test code = 41997) NEGATIVE Topher F AustinTRICHOMONAS, URINE, [id number] 00:00:00* Test Item Value Reference Range Interpretation Comme nts TRICHOMONAS, NAAT, URINE (te st code = 32669) NEGATIVE Topher F AustinCT/NG, TMA, [id number] 00:00:00* Test Item Value Reference Range Interpretation Comme nts CHLAMYDIA, NAAT, URINE (test code = 26775) NEGATIVE GONORRHEA, NAAT, URINE (test code = 09736) NEGATIVE Topher F AustinTRICHOMONAS, URINE, [id number] 00:00:00* Test Item Value Reference Range Interpretation Comme nts TRICHOMONAS, NAAT, URINE (te st code = 61580) NEGATIVE Topher F AustinCT/NG, TMA, [id number] 00:00:00* Test Item Value Reference Range Interpretation Comme nts CHLAMYDIA, NAAT, URINE (test code = 40663) NEGATIVE GONORRHEA, NAAT, URINE (test code = 45952) NEGATIVE Topher F AustinTRICHOMONAS, URINE, [id number] 00:00:00* Test Item Value Reference Range Interpretation Comme nts TRICHOMONAS, NAAT, URINE (te st code = 96739) NEGATIVE Topher F AustinCT/NG, TMA, [id number] 00:00:00* Test Item Value Reference Range Interpretation Comme nts CHLAMYDIA, NAAT, URINE (test code = 48723) NEGATIVE GONORRHEA, NAAT, URINE (test code = 41993) NEGATIVE Topher F AustinTRICHOMONAS, URINE, [id number] 00:00:00* Test Item Value Reference Range Interpretation Comme nts TRICHOMONAS, NAAT, URINE (test code = 00271) TEST NOT PERFORMED Topher F AustinCT/NG, TMA, [id number] 00:00:00* Test Item Value Reference Range Interpretation Comme nts CHLAMYDIA, NAAT, URINE (test code = 09938) TEST NOT PERFORMED GONORRHEA, NAAT, URINE (test code = 20794) TEST NOT PERFORMED Topher F AustinTRICHOMONAS, URINE, [id number] 00:00:00* Test Item Value Reference Range Interpretation Comme nts TRICHOMONAS, NAAT, URINE (test code = 51348) TEST NOT PERFORMED Topher F AustinCT/NG, TMA, [id number] 00:00:00* Test Item Value Reference Range Interpretation Comme nts CHLAMYDIA, NAAT, URINE (test code = 63674) TEST NOT PERFORMED GONORRHEA, NAAT, URINE (test code = 33431) TEST NOT PERFORMED Topher F AustinTRICHOMONAS, URINE, [id number] 00:00:00* Test Item Value Reference Range Interpretation Comme nts TRICHOMONAS, NAAT, URINE (test code = 78002) TEST NOT PERFORMED Topher F AustinCT/NG, TMA, [id number] 00:00:00* Test Item Value Reference Range Interpretation Comme nts CHLAMYDIA, NAAT, URINE (test code = 52891) TEST NOT PERFORMED GONORRHEA, NAAT, URINE (test code = 82303) TEST NOT PERFORMED Topher F AustinTRICHOMONAS, URINE, [id number] 00:00:00* Test Item Value Reference Range Interpretation Comme nts TRICHOMONAS, NAAT, URINE (test code = 12331) TEST NOT PERFORMED Topher F AustinCT/NG, TMA, [id number] 00:00:00* Test Item Value Reference Range Interpretation Comme nts CHLAMYDIA, NAAT, URINE (test code = 72899) TEST NOT PERFORMED GONORRHEA, NAAT, URINE (test code = 55896) TEST NOT PERFORMED Topher F AustinTRICHOMONAS, URINE, [id number] 00:00:00* Test Item Value Reference Range Interpretation Comme nts TRICHOMONAS, NAAT, URINE (test code = 10863) TEST NOT PERFORMED Topher F AustinCT/NG, TMA, [id number] 00:00:00* Test Item Value Reference Range Interpretation Comme nts CHLAMYDIA, NAAT, URINE (test code = 67715) TEST NOT PERFORMED GONORRHEA, NAAT, URINE (test code = 54724) TEST NOT PERFORMED Topher F AustinTRICHOMONAS, URINE, [id number] 00:00:00* Test Item Value Reference Range Interpretation Comme nts TRICHOMONAS, NAAT, URINE (test code = 03195) TEST NOT PERFORMED Topher F AustinCT/NG, TMA, [id number] 00:00:00* Test Item Value Reference Range Interpretation Comme nts CHLAMYDIA, NAAT, URINE (test code = 27527) TEST NOT PERFORMED GONORRHEA, NAAT, URINE (test code = 23654) TEST NOT PERFORMED Topher F AustinTRICHOMONAS, URINE, [id number] 00:00:00* Test Item Value Reference Range Interpretation Comme nts TRICHOMONAS, NAAT, URINE (test code = 82409) TEST NOT PERFORMED Topher F AustinCT/NG, TMA, [id number] 00:00:00* Test Item Value Reference Range Interpretation Comme nts CHLAMYDIA, NAAT, URINE (test code = 74873) TEST NOT PERFORMED GONORRHEA, NAAT, URINE (test code = 56086) TEST NOT PERFORMED Topher F AustinTRICHOMONAS, URINE, [id number] 00:00:00* Test Item Value Reference Range Interpretation Comme nts TRICHOMONAS, NAAT, URINE (test code = 56258) TEST NOT PERFORMED Topher F AustinCT/NG, TMA, [id number] 00:00:00* Test Item Value Reference Range Interpretation Comme nts CHLAMYDIA, NAAT, URINE (test code = 14091) TEST NOT PERFORMED GONORRHEA, NAAT, URINE (test code = 50953) TEST NOT PERFORMED Topher F AustinTRICHOMONAS, URINE, [id number] 00:00:00* Test Item Value Reference Range Interpretation Comme nts TRICHOMONAS, NAAT, URINE (test code = 19975) TEST NOT PERFORMED Topher F AustinCT/NG, TMA, [id number] 00:00:00* Test Item Value Reference Range Interpretation Comme nts CHLAMYDIA, NAAT, URINE (test code = 66689) TEST NOT PERFORMED GONORRHEA, NAAT, URINE (test code = 45172) TEST NOT PERFORMED Topher F AustinTRICHOMONAS, URINE, [id number] 00:00:00* Test Item Value Reference Range Interpretation Comme nts TRICHOMONAS, NAAT, URINE (test code = 27600) TEST NOT PERFORMED Topher F AustinCT/NG, TMA, [id number] 00:00:00* Test Item Value Reference Range Interpretation Comme nts CHLAMYDIA, NAAT, URINE (test code = 66611) TEST NOT PERFORMED GONORRHEA, NAAT, URINE (test code = 85884) TEST NOT PERFORMED Topher F AustinTRICHOMONAS, URINE, [id number] 00:00:00* Test Item Value Reference Range Interpretation Comme nts TRICHOMONAS, NAAT, URINE (test code = 32957) TEST NOT PERFORMED Topher F AustinCT/NG, TMA, [id number] 00:00:00* Test Item Value Reference Range Interpretation Comme nts CHLAMYDIA, NAAT, URINE (test code = 63294) TEST NOT PERFORMED GONORRHEA, NAAT, URINE (test code = 32930) TEST NOT PERFORMED Topher F AustinTRICHOMONAS, URINE, [id number] 00:00:00* Test Item Value Reference Range Interpretation Comme nts TRICHOMONAS, NAAT, URINE (test code = 96226) TEST NOT PERFORMED Topher F AustinCT/NG, TMA, [id number] 00:00:00* Test Item Value Reference Range Interpretation Comme nts CHLAMYDIA, NAAT, URINE (test code = 55753) TEST NOT PERFORMED GONORRHEA, NAAT, URINE (test code = 08315) TEST NOT PERFORMED Topher F AustinTRICHOMONAS, URINE, [id number] 00:00:00* Test Item Value Reference Range Interpretation Comme nts TRICHOMONAS, NAAT, URINE (test code = 38518) TEST NOT PERFORMED Topher F AustinCT/NG, TMA, [id number] 00:00:00* Test Item Value Reference Range Interpretation Comme nts CHLAMYDIA, NAAT, URINE (test code = 13333) TEST NOT PERFORMED GONORRHEA, NAAT, URINE (test code = 91796) TEST NOT PERFORMED Topher F AustinTRICHOMONAS, URINE, [id number] 00:00:00* Test Item Value Reference Range Interpretation Comme nts TRICHOMONAS, NAAT, URINE (test code = 08882) TEST NOT PERFORMED Topher F AustinCT/NG, TMA, [id number] 00:00:00* Test Item Value Reference Range Interpretation Comme nts CHLAMYDIA, NAAT, URINE (test code = 26425) TEST NOT PERFORMED GONORRHEA, NAAT, URINE (test code = 42586) TEST NOT PERFORMED Topher F AustinTRICHOMONAS, URINE, [id number] 00:00:00* Test Item Value Reference Range Interpretation Comme nts TRICHOMONAS, NAAT, URINE (test code = 27432) TEST NOT PERFORMED Topher F AustinCT/NG, TMA, [id number] 00:00:00* Test Item Value Reference Range Interpretation Comme nts CHLAMYDIA, NAAT, URINE (test code = 41126) TEST NOT PERFORMED GONORRHEA, NAAT, URINE (test code = 92391) TEST NOT PERFORMED Topher F AustinTRICHOMONAS, URINE, [id number] 00:00:00* Test Item Value Reference Range Interpretation Comme nts TRICHOMONAS, NAAT, URINE (test code = 70388) TEST NOT PERFORMED Topher F AustinCT/NG, TMA, [id number] 00:00:00* Test Item Value Reference Range Interpretation Comme nts CHLAMYDIA, NAAT, URINE (test code = 68854) TEST NOT PERFORMED GONORRHEA, NAAT, URINE (test code = 24002) TEST NOT PERFORMED Topher F AustinTRICHOMONAS, URINE, [id number] 00:00:00* Test Item Value Reference Range Interpretation Comme nts TRICHOMONAS, NAAT, URINE (test code = 61908) TEST NOT PERFORMED Topher F AustinCT/NG, TMA, [id number] 00:00:00* Test Item Value Reference Range Interpretation Comme nts CHLAMYDIA, NAAT, URINE (test code = 51874) TEST NOT PERFORMED GONORRHEA, NAAT, URINE (test code = 99933) TEST NOT PERFORMED Topher F AustinTRICHOMONAS, URINE, [id number] 00:00:00* Test Item Value Reference Range Interpretation Comme nts TRICHOMONAS, NAAT, URINE (test code = 62179) TEST NOT PERFORMED Topher F AustinCT/NG, TMA, [id number] 00:00:00* Test Item Value Reference Range Interpretation Comme nts CHLAMYDIA, NAAT, URINE (test code = 83944) TEST NOT PERFORMED GONORRHEA, NAAT, URINE (test code = 73969) TEST NOT PERFORMED [facility] [id number] 00:00:00* Test Item Value Reference Range Interpretation Comme nts ALTAF SPECIES (test code = 67498) NEGATIVE G. VAGINALIS (test code = 36357) POSITIVE T. VAGINALIS (test code = 71671) NEGATIVE Topher F AnandHIV 1/2 4TH GEN, RFLX [id number] 00:00:00* Test Item Value Reference Range Interpretation Comme nts HIV 1/2 4TH GEN, RFLX CONF ( test code = 3514) NON-REACTIVE Topher Pal [id number] 00:00:00* Test Item Value Reference Range Interpretation Comme nts RPR RESULT (test code = 3501) NON-REACTIVE RPR TITER (test code = 3500) NOT INDIC. TITER Topher ConroyPES SIMPLEX [id number] 00:00:00* Test Item Value Reference Range Interpretation Comme nts HERPES SIMPLEX AB, IgM (test code = 49984) 0.73 INDEX Topher MichelHERPES SIMPLEX 1/2 [id number] 00:00:00* Test Item Value Reference Range Interpretation Comme nts HERPES SIMPLEX 1 AB, IgG (te st code = 53535) 20.300 INDEX HERPES SIMPLEX 2 AB, IgG (te st code = 87655) 0.065 INDEX Topher MichelVAGINAL PATHOGENS DNA [id number] 00:00:00* Test Item Value Reference Range Interpretation Comme nts ALTAF SPECIES (test code = ) NEGATIVE G. VAGINALIS (test code = ) POSITIVE T. VAGINALIS (test code = ) NEGATIVE Topher MichelHIV 1/2 4TH GEN, RFLX [id number] 00:00:00* Test Item Value Reference Range Interpretation Comme nts HIV 1/2 4TH GEN, RFLX CONF ( test code = 3514) NON-REACTIVE Topher [id number] 00:00:00* Test Item Value Reference Range Interpretation Comme nts RPR RESULT (test code = 3501) NON-REACTIVE RPR TITER (test code = 3500) NOT INDIC. TITER Topher ConroyPES SIMPLEX [id number] 00:00:00* Test Item Value Reference Range Interpretation Comme nts HERPES SIMPLEX AB, IgM (test code = 66488) 0.73 INDEX Topher MichelHERPES SIMPLEX 1/2 [id number] 00:00:00* Test Item Value Reference Range Interpretation Comme nts HERPES SIMPLEX 1 AB, IgG (te st code = 71782) 20.300 INDEX HERPES SIMPLEX 2 AB, IgG (te st code = 92831) 0.065 INDEX Topher MichelVAGINAL PATHOGENS DNA [id number] 00:00:00* Test Item Value Reference Range Interpretation Comme nts ALTAF SPECIES (test code = ) NEGATIVE G. VAGINALIS (test code = 80740) POSITIVE T. VAGINALIS (test code = 65232) NEGATIVE Topher MichelHIV 1/2 4TH GEN, RFLX [id number] 00:00:00* Test Item Value Reference Range Interpretation Comme nts HIV 1/2 4TH GEN, RFLX CONF ( test code = 3514) NON-REACTIVE Topher [id number] 00:00:00* Test Item Value Reference Range Interpretation Comme nts RPR RESULT (test code = 3501) NON-REACTIVE RPR TITER (test code = 3500) NOT INDIC. TITER Topher ConroyPES SIMPLEX [id number] 00:00:00* Test Item Value Reference Range Interpretation Comme nts HERPES SIMPLEX AB, IgM (test code = 74309) 0.73 INDEX Topher MichelHERPES SIMPLEX 1/2 [id number] 00:00:00* Test Item Value Reference Range Interpretation Comme nts HERPES SIMPLEX 1 AB, IgG (te st code = 84260) 20.300 INDEX HERPES SIMPLEX 2 AB, IgG (te st code = 79382) 0.065 INDEX Topher MichelVAGINAL PATHOGENS DNA [id number] 00:00:00* Test Item Value Reference Range Interpretation Comme nts ALTAF SPECIES (test code = 93975) NEGATIVE G. VAGINALIS (test code = 94725) POSITIVE T. VAGINALIS (test code = 65057) NEGATIVE Topher MichelHIV 1/2 4TH GEN, RFLX [id number] 00:00:00* Test Item Value Reference Range Interpretation Comme nts HIV 1/2 4TH GEN, RFLX CONF ( test code = 3514) NON-REACTIVE Topher [id number] 00:00:00* Test Item Value Reference Range Interpretation Comme nts RPR RESULT (test code = 3501) NON-REACTIVE RPR TITER (test code = 3500) NOT INDIC. TITER Topher ConroyPES SIMPLEX [id number] 00:00:00* Test Item Value Reference Range Interpretation Comme nts HERPES SIMPLEX AB, IgM (test code = 00907) 0.73 INDEX Topher MichelHERPES SIMPLEX 1/2 [id number] 00:00:00* Test Item Value Reference Range Interpretation Comme nts HERPES SIMPLEX 1 AB, IgG (te st code = 21026) 20.300 INDEX HERPES SIMPLEX 2 AB, IgG (te st code = 41617) 0.065 INDEX Topher MichelVAGINAL PATHOGENS DNA [id number] 00:00:00* Test Item Value Reference Range Interpretation Comme nts ALTAF SPECIES (test code = ) NEGATIVE G. VAGINALIS (test code = ) POSITIVE T. VAGINALIS (test code = ) NEGATIVE Topher Aguillon AustinHIV 1/2 4TH GEN, RFLX [id number] 00:00:00* Test Item Value Reference Range Interpretation Comme nts HIV 1/2 4TH GEN, RFLX CONF ( test code = 3514) NON-REACTIVE Topher Aguillon [id number] 00:00:00* Test Item Value Reference Range Interpretation Comme nts RPR RESULT (test code = 3501) NON-REACTIVE RPR TITER (test code = 3500) NOT INDIC. TITER Topher MichelHERPES SIMPLEX [id number] 00:00:00* Test Item Value Reference Range Interpretation Comme nts HERPES SIMPLEX AB, IgM (test code = 11869) 0.73 INDEX Topher MichelHERPES SIMPLEX 1/2 [id number] 00:00:00* Test Item Value Reference Range Interpretation Comme nts HERPES SIMPLEX 1 AB, IgG (te st code = 15568) 20.300 INDEX HERPES SIMPLEX 2 AB, IgG (te st code = 87556) 0.065 INDEX Topher MichelVAGINAL PATHOGENS DNA [id number] 00:00:00* Test Item Value Reference Range Interpretation Comme nts ALTAF SPECIES (test code = ) NEGATIVE G. VAGINALIS (test code = 11134) POSITIVE T. VAGINALIS (test code = 25926) NEGATIVE Topher Aguillon AustinHIV 1/2 4TH GEN, RFLX [id number] 00:00:00* Test Item Value Reference Range Interpretation Comme nts HIV 1/2 4TH GEN, RFLX CONF ( test code = 3514) NON-REACTIVE Topher Aguillon [id number] 00:00:00* Test Item Value Reference Range Interpretation Comme nts RPR RESULT (test code = 3501) NON-REACTIVE RPR TITER (test code = 3500) NOT INDIC. TITER Topher F AustinHERPES SIMPLEX [id number] 00:00:00* Test Item Value Reference Range Interpretation Comme nts HERPES SIMPLEX AB, IgM (test code = 36563) 0.73 INDEX Topher MichelHERPES SIMPLEX 1/2 [id number] 00:00:00* Test Item Value Reference Range Interpretation Comme nts HERPES SIMPLEX 1 AB, IgG (te st code = 61207) 20.300 INDEX HERPES SIMPLEX 2 AB, IgG (te st code = 18629) 0.065 INDEX Topher MichelVAGINAL PATHOGENS DNA [id number] 00:00:00* Test Item Value Reference Range Interpretation Comme nts ALTAF SPECIES (test code = ) NEGATIVE G. VAGINALIS (test code = 31350) POSITIVE T. VAGINALIS (test code = ) NEGATIVE Topher MichelHIV 1/2 4TH GEN, RFLX [id number] 00:00:00* Test Item Value Reference Range Interpretation Comme nts HIV 1/2 4TH GEN, RFLX CONF ( test code = 3514) NON-REACTIVE Topher [id number] 00:00:00* Test Item Value Reference Range Interpretation Comme nts RPR RESULT (test code = 3501) NON-REACTIVE RPR TITER (test code = 3500) NOT INDIC. TITER Topher MichelHERPES SIMPLEX [id number] 00:00:00* Test Item Value Reference Range Interpretation Comme nts HERPES SIMPLEX AB, IgM (test code = 90821) 0.73 INDEX Topher MichelHERPES SIMPLEX 1/2 [id number] 00:00:00* Test Item Value Reference Range Interpretation Comme nts HERPES SIMPLEX 1 AB, IgG (te st code = 38422) 20.300 INDEX HERPES SIMPLEX 2 AB, IgG (te st code = 62737) 0.065 INDEX Topher MichelVAGINAL PATHOGENS DNA [id number] 00:00:00* Test Item Value Reference Range Interpretation Comme nts ALTAF SPECIES (test code = ) NEGATIVE G. VAGINALIS (test code = 45510) POSITIVE T. VAGINALIS (test code = 64109) NEGATIVE Topher MichelHIV 1/2 4TH GEN, RFLX [id number] 00:00:00* Test Item Value Reference Range Interpretation Comme nts HIV 1/2 4TH GEN, RFLX CONF ( test code = 3514) NON-REACTIVE Topher [id number] 00:00:00* Test Item Value Reference Range Interpretation Comme nts RPR RESULT (test code = 3501) NON-REACTIVE RPR TITER (test code = 3500) NOT INDIC. TITER Topher MichelHERPES SIMPLEX [id number] 00:00:00* Test Item Value Reference Range Interpretation Comme nts HERPES SIMPLEX AB, IgM (test code = 47876) 0.73 INDEX Topher MichelHERPES SIMPLEX 1/2 [id number] 00:00:00* Test Item Value Reference Range Interpretation Comme nts HERPES SIMPLEX 1 AB, IgG (te st code = 87866) 20.300 INDEX HERPES SIMPLEX 2 AB, IgG (te st code = 32743) 0.065 INDEX Topher MichelVAGINAL PATHOGENS DNA [id number] 00:00:00* Test Item Value Reference Range Interpretation Comme nts ALTAF SPECIES (test code = 55828) NEGATIVE G. VAGINALIS (test code = 60131) POSITIVE T. VAGINALIS (test code = 71986) NEGATIVE Topher MichelHIV 1/2 4TH GEN, RFLX [id number] 00:00:00* Test Item Value Reference Range Interpretation Comme nts HIV 1/2 4TH GEN, RFLX CONF ( test code = 3514) NON-REACTIVE Topher [id number] 00:00:00* Test Item Value Reference Range Interpretation Comme nts RPR RESULT (test code = 3501) NON-REACTIVE RPR TITER (test code = 3500) NOT INDIC. TITER Topher ConroyPES SIMPLEX [id number] 00:00:00* Test Item Value Reference Range Interpretation Comme nts HERPES SIMPLEX AB, IgM (test code = 68700) 0.73 INDEX Topher MichelHERPES SIMPLEX 1/2 [id number] 00:00:00* Test Item Value Reference Range Interpretation Comme nts HERPES SIMPLEX 1 AB, IgG (te st code = 84213) 20.300 INDEX HERPES SIMPLEX 2 AB, IgG (te st code = 51635) 0.065 INDEX Topher Aguillon AustinVAGINAL PATHOGENS DNA [id number] 00:00:00* Test Item Value Reference Range Interpretation Comme nts ALTAF SPECIES (test code = ) NEGATIVE G. VAGINALIS (test code = 99184) POSITIVE T. VAGINALIS (test code = 74375) NEGATIVE Topher MichelHIV 1/2 4TH GEN, RFLX [id number] 00:00:00* Test Item Value Reference Range Interpretation Comme nts HIV 1/2 4TH GEN, RFLX CONF ( test code = 3514) NON-REACTIVE Topher [id number] 00:00:00* Test Item Value Reference Range Interpretation Comme nts RPR RESULT (test code = 3501) NON-REACTIVE RPR TITER (test code = 3500) NOT INDIC. TITER Topher MichelHERPES SIMPLEX [id number] 00:00:00* Test Item Value Reference Range Interpretation Comme nts HERPES SIMPLEX AB, IgM (test code = 96969) 0.73 INDEX Topher MichelHERPES SIMPLEX 1/2 [id number] 00:00:00* Test Item Value Reference Range Interpretation Comme nts HERPES SIMPLEX 1 AB, IgG (te st code = 10115) 20.300 INDEX HERPES SIMPLEX 2 AB, IgG (te st code = 35120) 0.065 INDEX Topher MichelVAGINAL PATHOGENS DNA [id number] 00:00:00* Test Item Value Reference Range Interpretation Comme nts ALTAF SPECIES (test code = ) NEGATIVE G. VAGINALIS (test code = 91004) POSITIVE T. VAGINALIS (test code = 19670) NEGATIVE Topher MichelHIV 1/2 4TH GEN, RFLX [id number] 00:00:00* Test Item Value Reference Range Interpretation Comme nts HIV 1/2 4TH GEN, RFLX CONF ( test code = 3514) NON-REACTIVE Topher [id number] 00:00:00* Test Item Value Reference Range Interpretation Comme nts RPR RESULT (test code = 3501) NON-REACTIVE RPR TITER (test code = 3500) NOT INDIC. TITER Topher MichelHERPES SIMPLEX [id number] 00:00:00* Test Item Value Reference Range Interpretation Comme nts HERPES SIMPLEX AB, IgM (test code = 69882) 0.73 INDEX Topher F AustinHERPES SIMPLEX 1/2 [id number] 00:00:00* Test Item Value Reference Range Interpretation Comme nts HERPES SIMPLEX 1 AB, IgG (te st code = 54024) 20.300 INDEX HERPES SIMPLEX 2 AB, IgG (te st code = 35551) 0.065 INDEX Topher MichelVAGINAL PATHOGENS DNA [id number] 00:00:00* Test Item Value Reference Range Interpretation Comme nts ALTAF SPECIES (test code = ) NEGATIVE G. VAGINALIS (test code = ) POSITIVE T. VAGINALIS (test code = ) NEGATIVE Topher MichelHIV 1/2 4TH GEN, RFLX [id number] 00:00:00* Test Item Value Reference Range Interpretation Comme nts HIV 1/2 4TH GEN, RFLX CONF ( test code = 3514) NON-REACTIVE Topher Aguillon [id number] 00:00:00* Test Item Value Reference Range Interpretation Comme nts RPR RESULT (test code = 3501) NON-REACTIVE RPR TITER (test code = 3500) NOT INDIC. TITER Topher MichelHERPES SIMPLEX [id number] 00:00:00* Test Item Value Reference Range Interpretation Comme nts HERPES SIMPLEX AB, IgM (test code = 44121) 0.73 INDEX Topher MichelHERPES SIMPLEX 1/2 [id number] 00:00:00* Test Item Value Reference Range Interpretation Comme nts HERPES SIMPLEX 1 AB, IgG (te st code = 60241) 20.300 INDEX HERPES SIMPLEX 2 AB, IgG (te st code = 32553) 0.065 INDEX Topher MichelVAGINAL PATHOGENS DNA [id number] 00:00:00* Test Item Value Reference Range Interpretation Comme nts ALTAF SPECIES (test code = ) NEGATIVE G. VAGINALIS (test code = 29784) POSITIVE T. VAGINALIS (test code = 78050) NEGATIVE Topher MichelHIV 1/2 4TH GEN, RFLX [id number] 00:00:00* Test Item Value Reference Range Interpretation Comme nts HIV 1/2 4TH GEN, RFLX CONF ( test code = 3514) NON-REACTIVE Topher Aguillon [id number] 00:00:00* Test Item Value Reference Range Interpretation Comme nts RPR RESULT (test code = 3501) NON-REACTIVE RPR TITER (test code = 3500) NOT INDIC. TITER Topher MichelHERPES SIMPLEX [id number] 00:00:00* Test Item Value Reference Range Interpretation Comme nts HERPES SIMPLEX AB, IgM (test code = 80478) 0.73 INDEX Topher MichelHERPES SIMPLEX 1/2 [id number] 00:00:00* Test Item Value Reference Range Interpretation Comme nts HERPES SIMPLEX 1 AB, IgG (te st code = 73164) 20.300 INDEX HERPES SIMPLEX 2 AB, IgG (te st code = 02767) 0.065 INDEX Topher MichelVAGINAL PATHOGENS DNA [id number] 00:00:00* Test Item Value Reference Range Interpretation Comme nts ALTAF SPECIES (test code = 91554) NEGATIVE G. VAGINALIS (test code = 80592) POSITIVE T. VAGINALIS (test code = 15112) NEGATIVE Topher MichelVAGINAL PATHOGENS DNA [id number] 00:00:00* Test Item Value Reference Range Interpretation Comme nts ALTAF SPECIES (test code = 81056) NEGATIVE G. VAGINALIS (test code = 09194) POSITIVE T. VAGINALIS (test code = 01943) NEGATIVE Topher MichelHIV 1/2 4TH GEN, RFLX [id number] 00:00:00* Test Item Value Reference Range Interpretation Comme nts HIV 1/2 4TH GEN, RFLX CONF ( test code = 3514) NON-REACTIVE Topher [id number] 00:00:00* Test Item Value Reference Range Interpretation Comme nts RPR RESULT (test code = 3501) NON-REACTIVE RPR TITER (test code = 3500) NOT INDIC. TITER Topher MichelHERPES SIMPLEX [id number] 00:00:00* Test Item Value Reference Range Interpretation Comme nts HERPES SIMPLEX AB, IgM (test code = 61023) 0.73 INDEX Topher MichelHERPES SIMPLEX 1/2 [id number] 00:00:00* Test Item Value Reference Range Interpretation Comme nts HERPES SIMPLEX 1 AB, IgG (te st code = 96362) 20.300 INDEX HERPES SIMPLEX 2 AB, IgG (te st code = 68536) 0.065 INDEX oTpher MichelHIV 1/2 4TH GEN, RFLX [id number] 00:00:00* Test Item Value Reference Range Interpretation Comme nts HIV 1/2 4TH GEN, RFLX CONF ( test code = 3514) NON-REACTIVE Topher [id number] 00:00:00* Test Item Value Reference Range Interpretation Comme nts RPR RESULT (test code = 3501) NON-REACTIVE RPR TITER (test code = 3500) NOT INDIC. TITER Topher MichelHERPES SIMPLEX [id number] 00:00:00* Test Item Value Reference Range Interpretation Comme nts HERPES SIMPLEX AB, IgM (test code = 46256) 0.73 INDEX Topher MichelHERPES SIMPLEX 1/2 [id number] 00:00:00* Test Item Value Reference Range Interpretation Comme nts HERPES SIMPLEX 1 AB, IgG (te st code = 94567) 20.300 INDEX HERPES SIMPLEX 2 AB, IgG (te st code = 71857) 0.065 INDEX Topher MichelVAGINAL PATHOGENS DNA [id number] 00:00:00* Test Item Value Reference Range Interpretation Comme nts ALTAF SPECIES (test code = 53967) NEGATIVE G. VAGINALIS (test code = 03737) POSITIVE T. VAGINALIS (test code = 94582) NEGATIVE Topher MichelHIV 1/2 4TH GEN, RFLX [id number] 00:00:00* Test Item Value Reference Range Interpretation Comme nts HIV 1/2 4TH GEN, RFLX CONF ( test code = 3514) NON-REACTIVE Topher [id number] 00:00:00* Test Item Value Reference Range Interpretation Comme nts RPR RESULT (test code = 3501) NON-REACTIVE RPR TITER (test code = 3500) NOT INDIC. TITER Topher MichelHERPES SIMPLEX [id number] 00:00:00* Test Item Value Reference Range Interpretation Comme nts HERPES SIMPLEX AB, IgM (test code = 17613) 0.73 INDEX Topher MichelHERPES SIMPLEX 1/2 [id number] 00:00:00* Test Item Value Reference Range Interpretation Comme nts HERPES SIMPLEX 1 AB, IgG (te st code = 79540) 20.300 INDEX HERPES SIMPLEX 2 AB, IgG (te st code = 28053) 0.065 INDEX Topher MichelVAGINAL PATHOGENS DNA [id number] 00:00:00* Test Item Value Reference Range Interpretation Comme nts ALTAF SPECIES (test code = ) NEGATIVE G. VAGINALIS (test code = ) POSITIVE T. VAGINALIS (test code = ) NEGATIVE Topher MichelHIV 1/2 4TH GEN, RFLX [id number] 00:00:00* Test Item Value Reference Range Interpretation Comme nts HIV 1/2 4TH GEN, RFLX CONF ( test code = 3514) NON-REACTIVE Topher Aguillon [id number] 00:00:00* Test Item Value Reference Range Interpretation Comme nts RPR RESULT (test code = 3501) NON-REACTIVE RPR TITER (test code = 3500) NOT INDIC. TITER Topher MichelHERPES SIMPLEX [id number] 00:00:00* Test Item Value Reference Range Interpretation Comme nts HERPES SIMPLEX AB, IgM (test code = 54776) 0.73 INDEX Topher MichelHERPES SIMPLEX 1/2 [id number] 00:00:00* Test Item Value Reference Range Interpretation Comme nts HERPES SIMPLEX 1 AB, IgG (te st code = 80584) 20.300 INDEX HERPES SIMPLEX 2 AB, IgG (te st code = 86009) 0.065 INDEX Topher MichelVAGINAL PATHOGENS DNA [id number] 00:00:00* Test Item Value Reference Range Interpretation Comme nts ALTAF SPECIES (test code = ) NEGATIVE G. VAGINALIS (test code = ) POSITIVE T. VAGINALIS (test code = 32778) NEGATIVE Topher MichelHIV 1/2 4TH GEN, RFLX [id number] 00:00:00* Test Item Value Reference Range Interpretation Comme nts HIV 1/2 4TH GEN, RFLX CONF ( test code = 3514) NON-REACTIVE Topher Aguillon [id number] 00:00:00* Test Item Value Reference Range Interpretation Comme nts RPR RESULT (test code = 3501) NON-REACTIVE RPR TITER (test code = 3500) NOT INDIC. TITER Topher MichelHERPES SIMPLEX [id number] 00:00:00* Test Item Value Reference Range Interpretation Comme nts HERPES SIMPLEX AB, IgM (test code = 71488) 0.73 INDEX Topher MichelHERPES SIMPLEX 1/2 [id number] 00:00:00* Test Item Value Reference Range Interpretation Comme nts HERPES SIMPLEX 1 AB, IgG (te st code = 88497) 20.300 INDEX HERPES SIMPLEX 2 AB, IgG (te st code = 95887) 0.065 INDEX Topher MichelHIV 1/2 4TH GEN, RFLX [id number] 01:43:43* Test Item Value Reference Range Interpretation Comme nts HIV 1/2 4TH GEN, RFLX CONF ( test code = 3514) NON-REACTIVE NON-REACTIVE HEPATITIS PANEL, [id number] 01:43:43* Test Item Value Reference Range Interpretation Comme nts HEPATITIS A IgM (test code = 13652) NON-REACTIVE NON-REACTIVE HEPATITIS B CORE IgM (test code = 4644) NON-REACTIVE NON-REACTIVE HEPATITIS B SURF AG (test code = 2739) NON-REACTIVE NON-REACTIVE HEPATITIS C ANTIBODY (test code = 4675) NON-REACTIVE NON-REACTIVE INTERPRETATION HEPATITIS A: (test code = 2552) (NOTE) Hepatitis A serology shows no evidence of acute hepatitis A. INTERPRETATION HEPATITIS B: (test code = 24462) (NOTE) Hepatitis B serology shows no evidence of acute hepatitis B andno indication of exposure to hepatitis B virus in the previous raegan eight months. INTERPRETATION HEPATITIS C: (test code = 34723) (NOTE) Hepatitis C serology shows no evidence of exposure to hepatitisC virus at this time. It can take up to 12 months after exposure tothe hepatitis C virus for antibodies to become detectable in the blood in certain patients. RPR REFLEX TO T. PALLIDUM - [id number] 00:18:34* Test Item Value Reference Range Interpretation Comme nts RPR (test code = 29396) NON-REACTIVE NON-REACTIVE RPR TITER (test code = 3500) NOT INDIC. TITER NOT INDIC. HIV 1/2 4TH GEN, RFLX [id number] 00:00:00* Test Item Value Reference Range Interpretation Comme nts HIV 1/2 4TH GEN, RFLX CONF ( test code = 3514) NON-REACTIVE Topher Aguillon AustinRPR REFLEX TO T. PALLIDUM - [id number] 00:00:00* Test Item Value Reference Range Interpretation Comme nts RPR (test code = 42552) NON-REACTIVE RPR TITER (test code = 3500) NOT INDIC. TITER Topher MichelACUTE HEPATITIS [id number] 00:00:00* Test Item Value Reference Range Interpretation Comme nts HEPATITIS A IgM (test code = 42952) NON-REACTIVE HEPATITIS B CORE IgM (test c ode = 4644) NON-REACTIVE HEPATITIS B SURF AG (test co de = 2739) NON-REACTIVE HEPATITIS C ANTIBODY (test c ode = 4675) NON-REACTIVE INTERPRETATION HEPATITIS A: (test code = 2552) (NOTE) INTERPRETATION HEPATITIS B: (test code = 73551) (NOTE) INTERPRETATION HEPATITIS C: (test code = 43534) (NOTE) Topher MichelHIV 1/2 4TH GEN, RFLX [id number] 00:00:00* Test Item Value Reference Range Interpretation Comme nts HIV 1/2 4TH GEN, RFLX CONF ( test code = 3514) NON-REACTIVE Topher Aguillon AustinRPR REFLEX TO T. PALLIDUM - [id number] 00:00:00* Test Item Value Reference Range Interpretation Comme nts RPR (test code = 84934) NON-REACTIVE RPR TITER (test code = 3500) NOT INDIC. TITER Topher MichelACUTE HEPATITIS [id number] 00:00:00* Test Item Value Reference Range Interpretation Comme nts HEPATITIS A IgM (test code = 83329) NON-REACTIVE HEPATITIS B CORE IgM (test c ode = 4644) NON-REACTIVE HEPATITIS B SURF AG (test co de = 2739) NON-REACTIVE HEPATITIS C ANTIBODY (test c ode = 4675) NON-REACTIVE INTERPRETATION HEPATITIS A: (test code = 2552) (NOTE) INTERPRETATION HEPATITIS B: (test code = 61197) (NOTE) INTERPRETATION HEPATITIS C: (test code = 72651) (NOTE) Topher MichelHIV 1/2 4TH GEN, RFLX [id number] 00:00:00* Test Item Value Reference Range Interpretation Comme nts HIV 1/2 4TH GEN, RFLX CONF ( test code = 3514) NON-REACTIVE Topher Aguillon AustinRPR REFLEX TO T. PALLIDUM - [id number] 00:00:00* Test Item Value Reference Range Interpretation Comme nts RPR (test code = 79502) NON-REACTIVE RPR TITER (test code = 3500) NOT INDIC. TITER Topher MichelACUTE HEPATITIS [id number] 00:00:00* Test Item Value Reference Range Interpretation Comme nts HEPATITIS A IgM (test code = 23457) NON-REACTIVE HEPATITIS B CORE IgM (test c ode = 4644) NON-REACTIVE HEPATITIS B SURF AG (test co de = 2739) NON-REACTIVE HEPATITIS C ANTIBODY (test c ode = 4675) NON-REACTIVE INTERPRETATION HEPATITIS A: (test code = 2552) (NOTE) INTERPRETATION HEPATITIS B: (test code = 90764) (NOTE) INTERPRETATION HEPATITIS C: (test code = 77901) (NOTE) Topher MichelHIV 1/2 4TH GEN, RFLX [id number] 00:00:00* Test Item Value Reference Range Interpretation Comme nts HIV 1/2 4TH GEN, RFLX CONF ( test code = 3514) NON-REACTIVE Topher Aguillon AustinRPR REFLEX TO T. PALLIDUM - [id number] 00:00:00* Test Item Value Reference Range Interpretation Comme nts RPR (test code = 39778) NON-REACTIVE RPR TITER (test code = 3500) NOT INDIC. TITER Topher MichelACUTE HEPATITIS [id number] 00:00:00* Test Item Value Reference Range Interpretation Comme nts HEPATITIS A IgM (test code = 23607) NON-REACTIVE HEPATITIS B CORE IgM (test c ode = 4644) NON-REACTIVE HEPATITIS B SURF AG (test co de = 2739) NON-REACTIVE HEPATITIS C ANTIBODY (test c ode = 4675) NON-REACTIVE INTERPRETATION HEPATITIS A: (test code = 2552) (NOTE) INTERPRETATION HEPATITIS B: (test code = 37748) (NOTE) INTERPRETATION HEPATITIS C: (test code = 94436) (NOTE) Topher Aguillon AustinHIV 1/2 4TH GEN, RFLX [id number] 00:00:00* Test Item Value Reference Range Interpretation Comme nts HIV 1/2 4TH GEN, RFLX CONF ( test code = 3514) NON-REACTIVE Topher Aguillon AustinRPR REFLEX TO T. PALLIDUM - [id number] 00:00:00* Test Item Value Reference Range Interpretation Comme nts RPR (test code = 79806) NON-REACTIVE RPR TITER (test code = 3500) NOT INDIC. TITER Topher Aguillon AustinACUTE HEPATITIS [id number] 00:00:00* Test Item Value Reference Range Interpretation Comme nts HEPATITIS A IgM (test code = 93702) NON-REACTIVE HEPATITIS B CORE IgM (test c ode = 4644) NON-REACTIVE HEPATITIS B SURF AG (test co de = 2739) NON-REACTIVE HEPATITIS C ANTIBODY (test c ode = 4675) NON-REACTIVE INTERPRETATION HEPATITIS A: (test code = 2552) (NOTE) INTERPRETATION HEPATITIS B: (test code = 79089) (NOTE) INTERPRETATION HEPATITIS C: (test code = 39061) (NOTE) Topher MichelHIV 1/2 4TH GEN, RFLX [id number] 00:00:00* Test Item Value Reference Range Interpretation Comme nts HIV 1/2 4TH GEN, RFLX CONF ( test code = 3514) NON-REACTIVE Topher Aguillon AustinRPR REFLEX TO T. PALLIDUM - [id number] 00:00:00* Test Item Value Reference Range Interpretation Comme nts RPR (test code = 66199) NON-REACTIVE RPR TITER (test code = 3500) NOT INDIC. TITER Topher MichelACUTE HEPATITIS [id number] 00:00:00* Test Item Value Reference Range Interpretation Comme nts HEPATITIS A IgM (test code = 65662) NON-REACTIVE HEPATITIS B CORE IgM (test c ode = 4644) NON-REACTIVE HEPATITIS B SURF AG (test co de = 2739) NON-REACTIVE HEPATITIS C ANTIBODY (test c ode = 4675) NON-REACTIVE INTERPRETATION HEPATITIS A: (test code = 2552) (NOTE) INTERPRETATION HEPATITIS B: (test code = 33404) (NOTE) INTERPRETATION HEPATITIS C: (test code = 29152) (NOTE) Topher Aguillon AustinHIV 1/2 4TH GEN, RFLX [id number] 00:00:00* Test Item Value Reference Range Interpretation Comme nts HIV 1/2 4TH GEN, RFLX CONF ( test code = 3514) NON-REACTIVE Topher Aguillon AustinRPR REFLEX TO T. PALLIDUM - [id number] 00:00:00* Test Item Value Reference Range Interpretation Comme nts RPR (test code = 79050) NON-REACTIVE RPR TITER (test code = 3500) NOT INDIC. TITER Topher Aguillon AustinACUTE HEPATITIS [id number] 00:00:00* Test Item Value Reference Range Interpretation Comme nts HEPATITIS A IgM (test code = 15724) NON-REACTIVE HEPATITIS B CORE IgM (test c ode = 4644) NON-REACTIVE HEPATITIS B SURF AG (test co de = 2739) NON-REACTIVE HEPATITIS C ANTIBODY (test c ode = 4675) NON-REACTIVE INTERPRETATION HEPATITIS A: (test code = 2552) (NOTE) INTERPRETATION HEPATITIS B: (test code = 15073) (NOTE) INTERPRETATION HEPATITIS C: (test code = 41267) (NOTE) Topher Aguillon AustinHIV 1/2 4TH GEN, RFLX [id number] 00:00:00* Test Item Value Reference Range Interpretation Comme nts HIV 1/2 4TH GEN, RFLX CONF ( test code = 3514) NON-REACTIVE Topher Aguillon AustinRPR REFLEX TO T. PALLID[facility] - [id number] 00:00:00* Test Item Value Reference Range Interpretation Comme nts RPR (test code = 41739) NON-REACTIVE RPR TITER (test code = 3500) NOT INDIC. TITER Topher MichelACUTE HEPATITIS [id number] 00:00:00* Test Item Value Reference Range Interpretation Comme nts HEPATITIS A IgM (test code = 08259) NON-REACTIVE HEPATITIS B CORE IgM (test c ode = 4644) NON-REACTIVE HEPATITIS B SURF AG (test co de = 2739) NON-REACTIVE HEPATITIS C ANTIBODY (test c ode = 4675) NON-REACTIVE INTERPRETATION HEPATITIS A: (test code = 2552) (NOTE) INTERPRETATION HEPATITIS B: (test code = 25432) (NOTE) INTERPRETATION HEPATITIS C: (test code = 62416) (NOTE) Topher Aguillon AustinHIV 1/2 4TH GEN, RFLX [id number] 00:00:00* Test Item Value Reference Range Interpretation Comme nts HIV 1/2 4TH GEN, RFLX CONF ( test code = 3514) NON-REACTIVE Topher Aguillon AustinRPR REFLEX TO T. PALLIDUM - [id number] 00:00:00* Test Item Value Reference Range Interpretation Comme nts RPR (test code = 79305) NON-REACTIVE RPR TITER (test code = 3500) NOT INDIC. TITER Topher Aguillon AustinACUTE HEPATITIS [id number] 00:00:00* Test Item Value Reference Range Interpretation Comme nts HEPATITIS A IgM (test code = 23996) NON-REACTIVE HEPATITIS B CORE IgM (test c ode = 4644) NON-REACTIVE HEPATITIS B SURF AG (test co de = 2739) NON-REACTIVE HEPATITIS C ANTIBODY (test c ode = 4675) NON-REACTIVE INTERPRETATION HEPATITIS A: (test code = 2552) (NOTE) INTERPRETATION HEPATITIS B: (test code = 95594) (NOTE) INTERPRETATION HEPATITIS C: (test code = 33656) (NOTE) Topher Aguillon AustinHIV 1/2 4TH GEN, RFLX [id number] 00:00:00* Test Item Value Reference Range Interpretation Comme nts HIV 1/2 4TH GEN, RFLX CONF ( test code = 3514) NON-REACTIVE Topher Aguillon AustinRPR REFLEX TO T. PALLIDUM - [id number] 00:00:00* Test Item Value Reference Range Interpretation Comme nts RPR (test code = 74032) NON-REACTIVE RPR TITER (test code = 3500) NOT INDIC. TITER Topher Aguillon AustinACUTE HEPATITIS [id number] 00:00:00* Test Item Value Reference Range Interpretation Comme nts HEPATITIS A IgM (test code = 44214) NON-REACTIVE HEPATITIS B CORE IgM (test c ode = 4644) NON-REACTIVE HEPATITIS B SURF AG (test co de = 2739) NON-REACTIVE HEPATITIS C ANTIBODY (test c ode = 4675) NON-REACTIVE INTERPRETATION HEPATITIS A: (test code = 2552) (NOTE) INTERPRETATION HEPATITIS B: (test code = 40652) (NOTE) INTERPRETATION HEPATITIS C: (test code = 08759) (NOTE) Topher Aguillon AustinHIV 1/2 4TH GEN, RFLX [id number] 00:00:00* Test Item Value Reference Range Interpretation Comme nts HIV 1/2 4TH GEN, RFLX CONF ( test code = 3514) NON-REACTIVE Topher Aguillon AustinRPR REFLEX TO T. PALL[facility] - [id number] 00:00:00* Test Item Value Reference Range Interpretation Comme nts RPR (test code = 09533) NON-REACTIVE RPR TITER (test code = 3500) NOT INDIC. TITER Topher Aguillon AustinACUTE HEPATITIS [id number] 00:00:00* Test Item Value Reference Range Interpretation Comme nts HEPATITIS A IgM (test code = 46999) NON-REACTIVE HEPATITIS B CORE IgM (test c ode = 4644) NON-REACTIVE HEPATITIS B SURF AG (test co de = 2739) NON-REACTIVE HEPATITIS C ANTIBODY (test c ode = 4675) NON-REACTIVE INTERPRETATION HEPATITIS A: (test code = 2552) (NOTE) INTERPRETATION HEPATITIS B: (test code = 17880) (NOTE) INTERPRETATION HEPATITIS C: (test code = 86822) (NOTE) Topher Aguillon AustinHIV 1/2 4TH GEN, RFLX [id number] 00:00:00* Test Item Value Reference Range Interpretation Comme nts HIV 1/2 4TH GEN, RFLX CONF ( test code = 3514) NON-REACTIVE Topher Aguillon AustinRPR REFLEX TO T. [facility] - [id number] 00:00:00* Test Item Value Reference Range Interpretation Comme nts RPR (test code = 57355) NON-REACTIVE RPR TITER (test code = 3500) NOT INDIC. TITER Topher MichelACUTE HEPATITIS [id number] 00:00:00* Test Item Value Reference Range Interpretation Comme nts HEPATITIS A IgM (test code = 43079) NON-REACTIVE HEPATITIS B CORE IgM (test c ode = 4644) NON-REACTIVE HEPATITIS B SURF AG (test co de = 2739) NON-REACTIVE HEPATITIS C ANTIBODY (test c ode = 4675) NON-REACTIVE INTERPRETATION HEPATITIS A: (test code = 2552) (NOTE) INTERPRETATION HEPATITIS B: (test code = 69439) (NOTE) INTERPRETATION HEPATITIS C: (test code = 61432) (NOTE) Topher Aguillon AustinHIV 1/2 4TH GEN, RFLX [id number] 00:00:00* Test Item Value Reference Range Interpretation Comme nts HIV 1/2 4TH GEN, RFLX CONF ( test code = 3514) NON-REACTIVE Topher Aguillon AustinHIV 1/2 4TH GEN, RFLX [id number] 00:00:00* Test Item Value Reference Range Interpretation Comme nts HIV 1/2 4TH GEN, RFLX CONF ( test code = 3514) NON-REACTIVE Topher Aguillon AustinRPR REFLEX TO T. P[facility] - [id number] 00:00:00* Test Item Value Reference Range Interpretation Comme nts RPR (test code = 15031) NON-REACTIVE RPR TITER (test code = 3500) NOT INDIC. TITER Topher Aguillon AustinACUTE HEPATITIS [id number] 00:00:00* Test Item Value Reference Range Interpretation Comme nts HEPATITIS A IgM (test code = 78252) NON-REACTIVE HEPATITIS B CORE IgM (test c ode = 4644) NON-REACTIVE HEPATITIS B SURF AG (test co de = 2739) NON-REACTIVE HEPATITIS C ANTIBODY (test c ode = 4675) NON-REACTIVE INTERPRETATION HEPATITIS A: (test code = 2552) (NOTE) INTERPRETATION HEPATITIS B: (test code = 23865) (NOTE) INTERPRETATION HEPATITIS C: (test code = 50532) (NOTE) Topher Agiullon AustinHIV 1/2 4TH GEN, RFLX [id number] 00:00:00* Test Item Value Reference Range Interpretation Comme nts HIV 1/2 4TH GEN, RFLX CONF ( test code = 3514) NON-REACTIVE Topher Aguillon AustinRPR REFLEX TO T. P[facility] - [id number] 00:00:00* Test Item Value Reference Range Interpretation Comme nts RPR (test code = 89756) NON-REACTIVE RPR TITER (test code = 3500) NOT INDIC. TITER Topher Aguillon AustinACUTE HEPATITIS [id number] 00:00:00* Test Item Value Reference Range Interpretation Comme nts HEPATITIS A IgM (test code = 52578) NON-REACTIVE HEPATITIS B CORE IgM (test c ode = 4644) NON-REACTIVE HEPATITIS B SURF AG (test co de = 2739) NON-REACTIVE HEPATITIS C ANTIBODY (test c ode = 4675) NON-REACTIVE INTERPRETATION HEPATITIS A: (test code = 2552) (NOTE) INTERPRETATION HEPATITIS B: (test code = 57461) (NOTE) INTERPRETATION HEPATITIS C: (test code = 26348) (NOTE) Topher Aguillon AustinRPR REFLEX TO T. PALLIDUM - [id number] 00:00:00* Test Item Value Reference Range Interpretation Comme nts RPR (test code = 99737) NON-REACTIVE RPR TITER (test code = 3500) NOT INDIC. TITER Topher MichelACUTE HEPATITIS [id number] 00:00:00* Test Item Value Reference Range Interpretation Comme nts HEPATITIS A IgM (test code = 39482) NON-REACTIVE HEPATITIS B CORE IgM (test c ode = 4644) NON-REACTIVE HEPATITIS B SURF AG (test co de = 2739) NON-REACTIVE HEPATITIS C ANTIBODY (test c ode = 4675) NON-REACTIVE INTERPRETATION HEPATITIS A: (test code = 2552) (NOTE) INTERPRETATION HEPATITIS B: (test code = 23596) (NOTE) INTERPRETATION HEPATITIS C: (test code = 37669) (NOTE) Topher Aguillon AustinHIV 1/2 4TH GEN, RFLX [id number] 00:00:00* Test Item Value Reference Range Interpretation Comme nts HIV 1/2 4TH GEN, RFLX CONF ( test code = 3514) NON-REACTIVE Topher Aguillon AustinRPR REFLEX TO T. PALLIDUM - [id number] 00:00:00* Test Item Value Reference Range Interpretation Comme nts RPR (test code = 20372) NON-REACTIVE RPR TITER (test code = 3500) NOT INDIC. TITER Topher MichelACUTE HEPATITIS [id number] 00:00:00* Test Item Value Reference Range Interpretation Comme nts HEPATITIS A IgM (test code = 97246) NON-REACTIVE HEPATITIS B CORE IgM (test c ode = 4644) NON-REACTIVE HEPATITIS B SURF AG (test co de = 2739) NON-REACTIVE HEPATITIS C ANTIBODY (test c ode = 4675) NON-REACTIVE INTERPRETATION HEPATITIS A: (test code = 2552) (NOTE) INTERPRETATION HEPATITIS B: (test code = 29667) (NOTE) INTERPRETATION HEPATITIS C: (test code = 94953) (NOTE) Topher Aguillon AustinHIV 1/2 4TH GEN, RFLX [id number] 00:00:00* Test Item Value Reference Range Interpretation Comme nts HIV 1/2 4TH GEN, RFLX CONF ( test code = 3514) NON-REACTIVE Topher Aguillon AustinRPR REFLEX TO T. PALLIDUM - [id number] 00:00:00* Test Item Value Reference Range Interpretation Comme nts RPR (test code = 64477) NON-REACTIVE RPR TITER (test code = 3500) NOT INDIC. TITER Topher MichelACUTE HEPATITIS [id number] 00:00:00* Test Item Value Reference Range Interpretation Comme nts HEPATITIS A IgM (test code = 02391) NON-REACTIVE HEPATITIS B CORE IgM (test c ode = 4644) NON-REACTIVE HEPATITIS B SURF AG (test co de = 2739) NON-REACTIVE HEPATITIS C ANTIBODY (test c ode = 4675) NON-REACTIVE INTERPRETATION HEPATITIS A: (test code = 2552) (NOTE) INTERPRETATION HEPATITIS B: (test code = 03412) (NOTE) INTERPRETATION HEPATITIS C: (test code = 56059) (NOTE) Topher MichelHIV 1/2 4TH GEN, RFLX [id number] 00:00:00* Test Item Value Reference Range Interpretation Comme nts HIV 1/2 4TH GEN, RFLX CONF ( test code = 3514) NON-REACTIVE Topher MichelRPR REFLEX TO T. PALLIDUM - [id number] 00:00:00* Test Item Value Reference Range Interpretation Comme nts RPR (test code = 42638) NON-REACTIVE RPR TITER (test code = 3500) NOT INDIC. TITER Topher MichelACUTE HEPATITIS [id number] 00:00:00* Test Item Value Reference Range Interpretation Comme nts HEPATITIS A IgM (test code = 07093) NON-REACTIVE HEPATITIS B CORE IgM (test c ode = 4644) NON-REACTIVE HEPATITIS B SURF AG (test co de = 2739) NON-REACTIVE HEPATITIS C ANTIBODY (test c ode = 4675) NON-REACTIVE INTERPRETATION HEPATITIS A: (test code = 2552) (NOTE) INTERPRETATION HEPATITIS B: (test code = 49386) (NOTE) INTERPRETATION HEPATITIS C: (test code = 01053) (NOTE) Topher MichelCT/NG, NAAT, [id number] 15:10:48* Test Item Value Reference Range Interpretation Comme nts CHLAMYDIA, NAAT, URINE (test code = 17113) NEGATIVE NEGATIVE Testing is perfo rmed with [employer] 6800/8800 systems usingreal-time polymerase chain reaction (PCR) method. A negative result does not exclude low level infection, specimensampling error, or collection error. GONORRHEA, NAAT, URINE (test code = 69859) NEGATIVE NEGATIVE Testing is perfo rmed with [employer] 6800/8800 systems usingreal-time polymerase chain reaction (PCR) method. A negative result does not exclude low level infection, specimensampling error, or collection error. UNLESS OTHERWISE INDICATED, ALL TESTING PERFORMED AT [facility] [address] [place] [address] GEOMAGNETICIAN: SUSAN YANEZ M.D. CLIA NUMBER [id number] [facility] [place]. [id number] CT/NG, TMA, [id number] 00:00:00* Test Item Value Reference Range Interpretation Comme nts CHLAMYDIA, NAAT, URINE (test code = 62990) NEGATIVE GONORRHEA, NAAT, URINE (test code = 99164) NEGATIVE Topher F AustinCT/NG, TMA, [id number] 00:00:00* Test Item Value Reference Range Interpretation Comme nts CHLAMYDIA, NAAT, URINE (test code = 71120) NEGATIVE GONORRHEA, NAAT, URINE (test code = 28814) NEGATIVE Topher F AustinCT/NG, TMA, [id number] 00:00:00* Test Item Value Reference Range Interpretation Comme nts CHLAMYDIA, NAAT, URINE (test code = 78939) NEGATIVE GONORRHEA, NAAT, URINE (test code = 82413) NEGATIVE Topher F AustinCT/NG, TMA, [id number] 00:00:00* Test Item Value Reference Range Interpretation Comme nts CHLAMYDIA, NAAT, URINE (test code = 66621) NEGATIVE GONORRHEA, NAAT, URINE (test code = 42922) NEGATIVE Topher F AustinCT/NG, TMA, [id number] 00:00:00* Test Item Value Reference Range Interpretation Comme nts CHLAMYDIA, NAAT, URINE (test code = 82233) NEGATIVE GONORRHEA, NAAT, URINE (test code = 54114) NEGATIVE Topher F AustinCT/NG, TMA, [id number] 00:00:00* Test Item Value Reference Range Interpretation Comme nts CHLAMYDIA, NAAT, URINE (test code = 68796) NEGATIVE GONORRHEA, NAAT, URINE (test code = 58141) NEGATIVE Topher F AustinCT/NG, TMA, [id number] 00:00:00* Test Item Value Reference Range Interpretation Comme nts CHLAMYDIA, NAAT, URINE (test code = 62408) NEGATIVE GONORRHEA, NAAT, URINE (test code = 47383) NEGATIVE Topher F AustinCT/NG, TMA, [id number] 00:00:00* Test Item Value Reference Range Interpretation Comme nts CHLAMYDIA, NAAT, URINE (test code = 05965) NEGATIVE GONORRHEA, NAAT, URINE (test code = 67617) NEGATIVE Topher F AustinCT/NG, TMA, [id number] 00:00:00* Test Item Value Reference Range Interpretation Comme nts CHLAMYDIA, NAAT, URINE (test code = 36879) NEGATIVE GONORRHEA, NAAT, URINE (test code = 68409) NEGATIVE Topher F AustinCT/NG, TMA, [id number] 00:00:00* Test Item Value Reference Range Interpretation Comme nts CHLAMYDIA, NAAT, URINE (test code = 67552) NEGATIVE GONORRHEA, NAAT, URINE (test code = 03364) NEGATIVE Topher F AustinCT/NG, TMA, [id number] 00:00:00* Test Item Value Reference Range Interpretation Comme nts CHLAMYDIA, NAAT, URINE (test code = 56583) NEGATIVE GONORRHEA, NAAT, URINE (test code = 76211) NEGATIVE Topher F AustinCT/NG, TMA, [id number] 00:00:00* Test Item Value Reference Range Interpretation Comme nts CHLAMYDIA, NAAT, URINE (test code = 92178) NEGATIVE GONORRHEA, NAAT, URINE (test code = 82638) NEGATIVE Topher F AustinCT/NG, TMA, [id number] 00:00:00* Test Item Value Reference Range Interpretation Comme nts CHLAMYDIA, NAAT, URINE (test code = 86368) NEGATIVE GONORRHEA, NAAT, URINE (test code = 84903) NEGATIVE Topher F AustinCT/NG, TMA, [id number] 00:00:00* Test Item Value Reference Range Interpretation Comme nts CHLAMYDIA, NAAT, URINE (test code = 60719) NEGATIVE GONORRHEA, NAAT, URINE (test code = 54213) NEGATIVE Topher F AustinCT/NG, TMA, [id number] 00:00:00* Test Item Value Reference Range Interpretation Comme nts CHLAMYDIA, NAAT, URINE (test code = 25170) NEGATIVE GONORRHEA, NAAT, URINE (test code = 04094) NEGATIVE Topher Aguillon AustinCT/NG, TMA, [id number] 00:00:00* Test Item Value Reference Range Interpretation Comme nts CHLAMYDIA, NAAT, URINE (test code = 62030) NEGATIVE GONORRHEA, NAAT, URINE (test code = 39467) NEGATIVE Topher Aguillon AustinCT/NG, TMA, [id number] 00:00:00* Test Item Value Reference Range Interpretation Comme nts CHLAMYDIA, NAAT, URINE (test code = 60231) NEGATIVE GONORRHEA, NAAT, URINE (test code = 77287) NEGATIVE Topher Aguillon AustinCT/NG, TMA, [id number] 00:00:00* Test Item Value Reference Range Interpretation Comme nts CHLAMYDIA, NAAT, URINE (test code = 76287) NEGATIVE GONORRHEA, NAAT, URINE (test code = 16914) NEGATIVE Topher MichelHCG, [id number] 09:23:07* Test Item Value Reference Range Interpretation [...] . . . . . . MIU/ML [id number] FEMALES . . . . . . . . . . . . MIU/ML <=7 UNLESS OTHERWISE INDICATED, ALL TESTING PERFORMED AT [facility] [address] [place] [address] GEOMAGNETICIAN: SUSAN YANEZ M.D. CLIA NUMBER [id number] [facility] [place]. [id number] HCG, [id number] 00:00:00* Test Item Value Reference Range Interpretation Comme nts HCG, QUANTITATIVE (test code = 2506) 44 MIU/ML Topher F AustinHCG, [id number] 00:00:00* Test Item Value Reference Range Interpretation Comme nts HCG, QUANTITATIVE (test code = 2506) 44 MIU/ML Topher F AustinHCG, [id number] 00:00:00* Test Item Value Reference Range Interpretation Comme nts HCG, QUANTITATIVE (test code = 2506) 44 MIU/ML Topher F AustinHCG, [id number] 00:00:00* Test Item Value Reference Range Interpretation Comme nts HCG, QUANTITATIVE (test code = 2506) 44 MIU/ML Topher F AustinHCG, [id number] 00:00:00* Test Item Value Reference Range Interpretation Comme nts HCG, QUANTITATIVE (test code = 2506) 44 MIU/ML Topher F AustinHCG, [id number] 00:00:00* Test Item Value Reference Range Interpretation Comme nts HCG, QUANTITATIVE (test code = 2506) 44 MIU/ML Topher F AustinHCG, [id number] 00:00:00* Test Item Value Reference Range Interpretation Comme nts HCG, QUANTITATIVE (test code = 2506) 44 MIU/ML Topher F AustinHCG, [id number] 00:00:00* Test Item Value Reference Range Interpretation Comme nts HCG, QUANTITATIVE (test code = 2506) 44 MIU/ML Topher F AustinHCG, [id number] 00:00:00* Test Item Value Reference Range Interpretation Comme nts HCG, QUANTITATIVE (test code = 2506) 44 MIU/ML Topher F AustinHCG, [id number] 00:00:00* Test Item Value Reference Range Interpretation Comme nts HCG, QUANTITATIVE (test code = 2506) 44 MIU/ML Topher Aguillon AustinHCG, [id number] 00:00:00* Test Item Value Reference Range Interpretation Comme nts HCG, QUANTITATIVE (test code = 2506) 44 MIU/ML Topher F AustinHCG, [id number] 00:00:00* Test Item Value Reference Range Interpretation Comme nts HCG, QUANTITATIVE (test code = 2506) 44 MIU/ML Tpoher Pal AustinHCG, [id number] 00:00:00* Test Item Value Reference Range Interpretation Comme nts HCG, QUANTITATIVE (test code = 2506) 44 MIU/ML Topher F AustinHCG, [id number] 00:00:00* Test Item Value Reference Range Interpretation Comme nts HCG, QUANTITATIVE (test code = 2506) 44 MIU/ML Topher F AustinHCG, [id number] 00:00:00* Test Item Value Reference Range Interpretation Comme nts HCG, QUANTITATIVE (test code = 2506) 44 MIU/ML Topher F AustinHCG, [id number] 00:00:00* Test Item Value Reference Range Interpretation Comme nts HCG, QUANTITATIVE (test code = 2506) 44 MIU/ML Topher F AustinHCG, [id number] 00:00:00* Test Item Value Reference Range Interpretation Comme nts HCG, QUANTITATIVE (test code = 2506) 44 MIU/ML Otpher F AustinHCG, [id number] 00:00:00* Test Item Value Reference Range Interpretation Comme nts HCG, QUANTITATIVE (test code = 2506) 44 MIU/ML Topher MichelNIPS W/ [id number] 22:50:20* Test Item Value Reference Range Interpretation Comments FINAL NIPS RESULT (test code = 01546) Low Risk SEX (test code = 21429) Female FRACTION (EST.) (test code = 09826) 6 % TRISOMY 21 (T21) (test code = 23165) Low probability T21 PRE-TEST PROB (test code = 59762) 1/1,126 T21 POST-TEST PROB (test code = 75683) <1/20,000 TRISOMY 18 (T18) (test code = 963149) Low probability T18 PRE-TEST PROB (test code = 216235) 1/2,500 T18 POST-TEST PROB (test code = 532933) <1/20,000 TRISOMY 13 (T13) (test code = 899983) Low probability T13 PRE-TEST PROB (test code = 164188) 1/6,927 T13 POST-TEST PROB (test code = 603328) <1/20,000 INTERPRETATION (test code = 477409) See Note Testing of [facility] cell-free DNA from maternalblood shows no evidence of numerical abnormalitiesof the tested chromosomes. IMPORTANT INFORMATION (test code = 620790) See Note Patients with a pre-test probability [...] or analytical factors. RECOMMENDATION (test code = 989754) See Note A negative resul t does not eliminate the risk forother chromosomal abnormalities or birthdefects that are not evaluated in this screeningtest. Clinical correlation of test results isrecommended. GESTATION AT JOHANNE (W) (test code = 149786) 14 weeks GESTATION AT JOHANNE (D) (test code = 689552) 3 days DELIVERY DATE (EST.) (test code = 891109) 03/02/2024 PROVIDED HISTORY INFORMATION (test code = 464514) NUMBER OF FETUSES (test code = 176524) Romero MATERNAL WEIGHT (test code = 357010) 144 LBS DATING METHOD (test code = 801153) NORTH LMP OR NORTH DATE (test code = 520662) 05/27/2023 IVF (test code = 452317) NO PATIENT CONSENT (test code = 893608) YES SEX (test code = 698470) See Note sex determ ination is based [...] andinformation regarding genetic counseling services are available [email or web address]. Method:[facility]'s Non-Invasive Screening (NIPS)test is intended for early screening of aneuploidies (bothmonosomy and trisomy) in chromosomes 21, 18, 13, X and Y. The testutilizes [employer]'s [employer] NIPT Solution v2 and whole-genomesequencing of circulating fragments of cell-free DNA (cfDNA) obtainedfrom maternal plasma at 10 weeks gestation or later. The fetalcomponent of cfDNA is derived from placental tissue. Paired-endsequencing data of cfDNA are aligned with a reference genome (HG19)and analyzed by the [employer] NIPT Solution v2 algorithm to determinefetal fraction (FF) and numerical abnormalities in chromosomes 21,18, 13, X and Y. FF is used as a software quality tester parameter for NIPSanalysis and interpretation. This test was developed and itsperformance characteristics determined by [facility]). It has not been cleared or approved by the U.S. Food and DrugAdministration (FDA). The FDA has determined that such clearance orapproval is not necessary. This test is used for clinical purposesand should not be regarded as investigational or for research. [facility] isqualified to perform high complexity testing [...] from a study of 2,235pregnancies using the [employer] NIPT v2 test. The number of affectedpregnancies [...] is derived from published medical literature.Refer to [email or web address] for additionalinformation on pre- and post-test probability. Depending upon anumber of maternal or -related risk factors, an individualpregnancy may have higher or lower pre-test probability which cansignificantly affect the post-test risk estimation. Personal/familyhistory, sonographic and other -related screening findingsare not utilized in the risk estimation. Genetic or medicalcounseling may be useful to revise risk estimates. Test Limitations:[facility]'s NIPS test is a screening [...] sonographicscreening options are available. TESTING PERFORMED AT [facility], [address], [place] [address] CLIA NO: [id number] NIPT W/ [id number] 00:00:00* Test Item Value Reference Range Interpretation Comme nts FINAL NIPS RESULT (test code = 33058) Low Risk SEX (test code = 61822) Female FRACTION (EST.) (test code = 26106) 6 % TRISOMY 21 (T21) (test code = 10738) Low probability T21 PRE-TEST PROB (test code = 75852) 1/1,126 T21 POST-TEST PROB (test cod e = 91476) <1/20,000 TRISOMY 18 (T18) (test code = 894120) Low probability T18 PRE-TEST PROB (test code = 648216) 1/2,500 T18 POST-TEST PROB (test cod e = 317512) <1/20,000 TRISOMY 13 (T13) (test code = 332535) Low probability T13 PRE-TEST PROB (test code = 510905) 1/6,927 T13 POST-TEST PROB (test cod e = 417618) <1/20,000 INTERPRETATION (test code = 744841) See Note IMPORTANT INFORMATION (test code = 328178) See Note RECOMMENDATION (test code = 155129) See Note GESTATION AT J[facility]NE (W) (test code = 619269) 14 weeks GESTATION AT [facility]NE (D) (test code = 880337) 3 days DELIVERY DATE (EST.) (test code = 604653) 03/02/2024 PROVIDED HISTORY INFORMATION (test code = 925691) NUMBER OF FETUSES (test code = 279588) Romero MATERNAL WEIGHT (test code = 138840) 144 LBS DATING METHOD (test code = 664618) NORTH LMP OR NORTH DATE (test code = 950609) 05/27/2023 IVF (test code = 435452) NO PATIENT CONSENT (test code = 006570) YES SEX (test code = 816260) See Note Topher Cody W/ [id number] 00:00:00* Test Item Value Reference Range Interpretation Comme nts FINAL NIPS RESULT (test code = 63874) Low Risk SEX (test code = 84252) Female FRACTION (EST.) (test code = 97315) 6 % TRISOMY 21 (T21) (test code = 23512) Low probability T21 PRE-TEST PROB (test code = 05962) 1/1,126 T21 POST-TEST PROB (test cod e = 74159) <1/20,000 TRISOMY 18 (T18) (test code = 269973) Low probability T18 PRE-TEST PROB (test code = 924796) 1/2,500 T18 POST-TEST PROB (test cod e = 760246) <1/20,000 TRISOMY 13 (T13) (test code = 634121) Low probability T13 PRE-TEST PROB (test code = 039910) 1/6,927 T13 POST-TEST PROB (test cod e = 000984) <1/20,000 INTERPRETATION (test code = 765366) See Note IMPORTANT INFORMATION (test code = 050421) See Note RECOMMENDATION (test code = 272333) See Note GESTATION AT J[facility]NE (W) (test code = 768830) 14 weeks GESTATION AT [facility]NE (D) (test code = 662737) 3 days DELIVERY DATE (EST.) (test code = 804986) 03/02/2024 PROVIDED HISTORY INFORMATION (test code = 359597) NUMBER OF FETUSES (test code = 103977) Romero MATERNAL WEIGHT (test code = 045908) 144 LBS DATING METHOD (test code = 734973) NORTH LMP OR NORTH DATE (test code = 561694) 05/27/2023 IVF (test code = 390052) NO PATIENT CONSENT (test code = 771766) YES SEX (test code = 001801) See Note Topher Cody W/ [id number] 00:00:00* Test Item Value Reference Range Interpretation Comme nts FINAL NIPS RESULT (test code = 93243) Low Risk SEX (test code = 39287) Female FRACTION (EST.) (test code = 25372) 6 % TRISOMY 21 (T21) (test code = 47743) Low probability T21 PRE-TEST PROB (test code = 20243) 1,126 T21 POST-TEST PROB (test cod e = 77284) <1/20,000 TRISOMY 18 (T18) (test code = 220413) Low probability T18 PRE-TEST PROB (test code = 866436) 1/2,500 T18 POST-TEST PROB (test cod e = 768571) <1/20,000 TRISOMY 13 (T13) (test code = 001112) Low probability T13 PRE-TEST PROB (test code = 954699) 6,927 T13 POST-TEST PROB (test cod e = 543758) <1/20,000 INTERPRETATION (test code = 001675) See Note IMPORTANT INFORMATION (test code = 647084) See Note RECOMMENDATION (test code = 187760) See Note GESTATION AT J[facility]NE (W) (test code = 612383) 14 weeks GESTATION AT [facility]NE (D) (test code = 438069) 3 days DELIVERY DATE (EST.) (test code = 152822) 03/02/2024 PROVIDED HISTORY INFORMATION (test code = 503047) NUMBER OF FETUSES (test code = 721580) Romero MATERNAL WEIGHT (test code = 371010) 144 LBS DATING METHOD (test code = 770777) NORTH LMP OR NORTH DATE (test code = 349565) 05/27/2023 IVF (test code = 228888) NO PATIENT CONSENT (test code = 356648) YES SEX (test code = 743881) See Note Topher Cody W/ [id number] 00:00:00* Test Item Value Reference Range Interpretation Comme nts FINAL NIPS RESULT (test code = 23652) Low Risk SEX (test code = 92227) Female FRACTION (EST.) (test code = 55477) 6 % TRISOMY 21 (T21) (test code = 56408) Low probability T21 PRE-TEST PROB (test code = 90228) 10/15, T21 POST-TEST PROB (test cod e = 23341) <1/20,000 TRISOMY 18 (T18) (test code = 844989) Low probability T18 PRE-TEST PROB (test code = 716397) 1/2,500 T18 POST-TEST PROB (test cod e = 709842) <1/20,000 TRISOMY 13 (T13) (test code = 374004) Low probability T13 PRE-TEST PROB (test code = 115282) 6,927 T13 POST-TEST PROB (test cod e = 313632) <1/20,000 INTERPRETATION (test code = 789829) See Note IMPORTANT INFORMATION (test code = 344773) See Note RECOMMENDATION (test code = 774867) See Note GESTATION AT [facility]NE (W) (test code = 357192) 14 weeks GESTATION AT [facility]NE (D) (test code = 320707) 3 days DELIVERY DATE (EST.) (test code = 133206) 03/02/2024 PROVIDED HISTORY INFORMATION (test code = 852138) NUMBER OF FETUSES (test code = 952534) Romero MATERNAL WEIGHT (test code = 226576) 144 LBS DATING METHOD (test code = 371038) NORTH LMP OR NORTH DATE (test code = 133500) 05/27/2023 IVF (test code = 810659) NO PATIENT CONSENT (test code = 299945) YES SEX (test code = 314766) See Note Topher Cody W/ [id number] 00:00:00* Test Item Value Reference Range Interpretation Comme nts FINAL NIPS RESULT (test code = 57043) Low Risk SEX (test code = 07619) Female FRACTION (EST.) (test code = 09241) 6 % TRISOMY 21 (T21) (test code = 31020) Low probability T21 PRE-TEST PROB (test code = 96975) T21 POST-TEST PROB (test cod e = 67052) <1/20,000 TRISOMY 18 (T18) (test code = 788764) Low probability T18 PRE-TEST PROB (test code = 925563) 10/16,500 T18 POST-TEST PROB (test cod e = 108098) <1/20,000 TRISOMY 13 (T13) (test code = 887508) Low probability T13 PRE-TEST PROB (test code = 275153) T13 POST-TEST PROB (test cod e = 047162) <1/20,000 INTERPRETATION (test code = 369952) See Note IMPORTANT INFORMATION (test code = 682636) See Note RECOMMENDATION (test code = 245046) See Note GESTATION AT [facility]NE (W) (test code = 894823) 14 weeks GESTATION AT [facility] (D) (test code = 029554) 3 days DELIVERY DATE (EST.) (test code = 130119) 03/02/2024 PROVIDED HISTORY INFORMATION (test code = 442801) NUMBER OF FETUSES (test code = 506321) Romero MATERNAL WEIGHT (test code = 844725) 144 LBS DATING METHOD (test code = 212984) NORTH LMP OR NORTH DATE (test code = 852944) 05/27/2023 IVF (test code = 914445) NO PATIENT CONSENT (test code = 695351) YES SEX (test code = 227480) See Note Topher Cody W/ [id number] 00:00:00* Test Item Value Reference Range Interpretation Comme nts FINAL NIPS RESULT (test code = 41808) Low Risk SEX (test code = 59761) Female FRACTION (EST.) (test code = 61084) 6 % TRISOMY 21 (T21) (test code = 60280) Low probability T21 PRE-TEST PROB (test code = 15161) 10/15,126 T21 POST-TEST PROB (test cod e = 76172) <1/20,000 TRISOMY 18 (T18) (test code = 736886) Low probability T18 PRE-TEST PROB (test code = 682719) 10/16,500 T18 POST-TEST PROB (test cod e = 171800) <1/20,000 TRISOMY 13 (T13) (test code = 198466) Low probability T13 PRE-TEST PROB (test code = 401041) T13 POST-TEST PROB (test cod e = 253535) <1/20,000 INTERPRETATION (test code = 045691) See Note IMPORTANT INFORMATION (test code = 000379) See Note RECOMMENDATION (test code = 246295) See Note GESTATION AT [facility] (W) (test code = 518244) 14 weeks GESTATION AT [facility]NE (D) (test code = 043036) 3 days DELIVERY DATE (EST.) (test code = 076269) 03/02/2024 PROVIDED HISTORY INFORMATION (test code = 629307) NUMBER OF FETUSES (test code = 908094) Romero MATERNAL WEIGHT (test code = 296611) 144 LBS DATING METHOD (test code = 256194) NORTH LMP OR NORTH DATE (test code = 073699) 05/27/2023 IVF (test code = 293997) NO PATIENT CONSENT (test code = 218249) YES SEX (test code = 784238) See Note Topher MichelCAR[facility]BAD MEDICAL CENTERMayank W/ [id number] 00:00:00* Test Item Value Reference Range Interpretation Comme nts FINAL NIPS RESULT (test code = 44254) Low Risk SEX (test code = 55020) Female FRACTION (EST.) (test code = 92480) 6 % TRISOMY 21 (T21) (test code = 07060) Low probability T21 PRE-TEST PROB (test code = 06970) 1/1,126 T21 POST-TEST PROB (test cod e = 56882) <1/20,000 TRISOMY 18 (T18) (test code = 117975) Low probability T18 PRE-TEST PROB (test code = 920201) 1/2,500 T18 POST-TEST PROB (test cod e = 680259) <1/20,000 TRISOMY 13 (T13) (test code = 149874) Low probability T13 PRE-TEST PROB (test code = 408311) 1/6,927 T13 POST-TEST PROB (test cod e = 906030) <1/20,000 INTERPRETATION (test code = 372095) See Note IMPORTANT INFORMATION (test code = 575966) See Note RECOMMENDATION (test code = 248980) See Note GESTATION AT J[facility]NE (W) (test code = 356353) 14 weeks GESTATION AT [facility]NE (D) (test code = 744941) 3 days DELIVERY DATE (EST.) (test code = 732087) 03/02/2024 PROVIDED HISTORY INFORMATION (test code = 985925) NUMBER OF FETUSES (test code = 055091) Romero MATERNAL WEIGHT (test code = 425140) 144 LBS DATING METHOD (test code = 318246) NORTH LMP OR NORTH DATE (test code = 610744) 05/27/2023 IVF (test code = 029973) NO PATIENT CONSENT (test code = 776658) YES SEX (test code = 792494) See Note Topher Cody W/ [id number] 00:00:00* Test Item Value Reference Range Interpretation Comme nts FINAL NIPS RESULT (test code = 07244) Low Risk SEX (test code = 50423) Female FRACTION (EST.) (test code = 24322) 6 % TRISOMY 21 (T21) (test code = 30070) Low probability T21 PRE-TEST PROB (test code = 46906) 1/,126 T21 POST-TEST PROB (test cod e = 26250) <1/20,000 TRISOMY 18 (T18) (test code = 995006) Low probability T18 PRE-TEST PROB (test code = 141294) 1/2,500 T18 POST-TEST PROB (test cod e = 002737) <1/20,000 TRISOMY 13 (T13) (test code = 396144) Low probability T13 PRE-TEST PROB (test code = 544960) 1/6,927 T13 POST-TEST PROB (test cod e = 560590) <1/20,000 INTERPRETATION (test code = 570391) See Note IMPORTANT INFORMATION (test code = 813035) See Note RECOMMENDATION (test code = 419852) See Note GESTATION AT JOHANNE (W) (test code = 630341) 14 weeks GESTATION AT [facility]NE (D) (test code = 813511) 3 days DELIVERY DATE (EST.) (test code = 807194) 03/02/2024 PROVIDED HISTORY INFORMATION (test code = 620122) NUMBER OF FETUSES (test code = 395382) Romero MATERNAL WEIGHT (test code = 754999) 144 LBS DATING METHOD (test code = 912271) NORTH LMP OR NORTH DATE (test code = 650662) 05/27/2023 IVF (test code = 903594) NO PATIENT CONSENT (test code = 717985) YES SEX (test code = 436607) See Note Topher Cody W/ [id number] 00:00:00* Test Item Value Reference Range Interpretation Comme nts FINAL NIPS RESULT (test code = 88762) Low Risk SEX (test code = 25827) Female FRACTION (EST.) (test code = 55734) 6 % TRISOMY 21 (T21) (test code = 54262) Low probability T21 PRE-TEST PROB (test code = 36083) 1/,126 T21 POST-TEST PROB (test cod e = 27016) <1/20,000 TRISOMY 18 (T18) (test code = 187830) Low probability T18 PRE-TEST PROB (test code = 799196) 1/2,500 T18 POST-TEST PROB (test cod e = 654024) <1/20,000 TRISOMY 13 (T13) (test code = 791540) Low probability T13 PRE-TEST PROB (test code = 377411) 1/6,927 T13 POST-TEST PROB (test cod e = 394353) <1/20,000 INTERPRETATION (test code = 793762) See Note IMPORTANT INFORMATION (test code = 473363) See Note RECOMMENDATION (test code = 074609) See Note GESTATION AT JOH[facility]NE (W) (test code = 961413) 14 weeks GESTATION AT [facility]NE (D) (test code = 255794) 3 days DELIVERY DATE (EST.) (test code = 496942) 03/02/2024 PROVIDED HISTORY INFORMATION (test code = 444723) NUMBER OF FETUSES (test code = 263249) Romero MATERNAL WEIGHT (test code = 066917) 144 LBS DATING METHOD (test code = 474831) NORTH LMP OR NORTH DATE (test code = 656873) 05/27/2023 IVF (test code = 748899) NO PATIENT CONSENT (test code = 700271) YES SEX (test code = 935186) See Note Topher Cody W/ [id number] 00:00:00* Test Item Value Reference Range Interpretation Comme nts FINAL NIPS RESULT (test code = 32583) Low Risk SEX (test code = 85337) Female FRACTION (EST.) (test code = 70310) 6 % TRISOMY 21 (T21) (test code = 49279) Low probability T21 PRE-TEST PROB (test code = 76757) T21 POST-TEST PROB (test cod e = 86577) <1/20,000 TRISOMY 18 (T18) (test code = 262841) Low probability T18 PRE-TEST PROB (test code = 179524) 1/2,500 T18 POST-TEST PROB (test cod e = 880244) <1/20,000 TRISOMY 13 (T13) (test code = 653190) Low probability T13 PRE-TEST PROB (test code = 375035) 6,927 T13 POST-TEST PROB (test cod e = 129814) <1/20,000 INTERPRETATION (test code = 527259) See Note IMPORTANT INFORMATION (test code = 672105) See Note RECOMMENDATION (test code = 597847) See Note GESTATION AT JOHANNE (W) (test code = 295256) 14 weeks GESTATION AT [facility]NE (D) (test code = 958295) 3 days DELIVERY DATE (EST.) (test code = 907342) 03/02/2024 PROVIDED HISTORY INFORMATION (test code = 631627) NUMBER OF FETUSES (test code = 323472) Romero MATERNAL WEIGHT (test code = 409120) 144 LBS DATING METHOD (test code = 543952) NORTH LMP OR NORTH DATE (test code = 302443) 05/27/2023 IVF (test code = 716960) NO PATIENT CONSENT (test code = 244068) YES SEX (test code = 128550) See Note Topher Cody W/ [id number] 00:00:00* Test Item Value Reference Range Interpretation Comme nts FINAL NIPS RESULT (test code = 24481) Low Risk SEX (test code = 82437) Female FRACTION (EST.) (test code = 78579) 6 % TRISOMY 21 (T21) (test code = 58683) Low probability T21 PRE-TEST PROB (test code = 05141) T21 POST-TEST PROB (test cod e = 88635) <1/20,000 TRISOMY 18 (T18) (test code = 428253) Low probability T18 PRE-TEST PROB (test code = 701436) 2,500 T18 POST-TEST PROB (test cod e = 361536) <1/20,000 TRISOMY 13 (T13) (test code = 735045) Low probability T13 PRE-TEST PROB (test code = 753549) T13 POST-TEST PROB (test cod e = 723887) <1/20,000 INTERPRETATION (test code = 955397) See Note IMPORTANT INFORMATION (test code = 247501) See Note RECOMMENDATION (test code = 224512) See Note GESTATION AT JOHANNE (W) (test code = 516002) 14 weeks GESTATION AT J[facility]ANNE (D) (test code = 380375) 3 days DELIVERY DATE (EST.) (test code = 386562) 03/02/2024 PROVIDED HISTORY INFORMATION (test code = 368141) NUMBER OF FETUSES (test code = 109793) Romero MATERNAL WEIGHT (test code = 027632) 144 LBS DATING METHOD (test code = 304146) NORTH LMP OR NORTH DATE (test code = 425365) 05/27/2023 IVF (test code = 931801) NO PATIENT CONSENT (test code = 276104) YES SEX (test code = 871537) See Note Topher Cody W/ [id number] 00:00:00* Test Item Value Reference Range Interpretation Comme nts FINAL NIPS RESULT (test code = 35949) Low Risk SEX (test code = 80669) Female FRACTION (EST.) (test code = 62059) 6 % TRISOMY 21 (T21) (test code = 20365) Low probability T21 PRE-TEST PROB (test code = 04535) T21 POST-TEST PROB (test cod e = 83977) <1/20,000 TRISOMY 18 (T18) (test code = 794673) Low probability T18 PRE-TEST PROB (test code = 255495) 2,500 T18 POST-TEST PROB (test cod e = 423607) <1/20,000 TRISOMY 13 (T13) (test code = 714384) Low probability T13 PRE-TEST PROB (test code = 090245) T13 POST-TEST PROB (test cod e = 824802) <1/20,000 INTERPRETATION (test code = 143024) See Note IMPORTANT INFORMATION (test code = 229437) See Note RECOMMENDATION (test code = 914731) See Note GESTATION AT JOHANNE (W) (test code = 750353) 14 weeks GESTATION AT JOHANNE (D) (test code = 568593) 3 days DELIVERY DATE (EST.) (test code = 934478) 03/02/2024 PROVIDED HISTORY INFORMATION (test code = 464793) NUMBER OF FETUSES (test code = 712569) Romero MATERNAL WEIGHT (test code = 057265) 144 LBS DATING METHOD (test code = 550988) NORTH LMP OR NORTH DATE (test code = 725442) 05/27/2023 IVF (test code = 360600) NO PATIENT CONSENT (test code = 734419) YES SEX (test code = 449995) See Note Topher Cody W/ [id number] 00:00:00* Test Item Value Reference Range Interpretation Comme nts FINAL NIPS RESULT (test code = 39158) Low Risk SEX (test code = 57103) Female FRACTION (EST.) (test code = 00195) 6 % TRISOMY 21 (T21) (test code = 89718) Low probability T21 PRE-TEST PROB (test code = 69839) 10/15,126 T21 POST-TEST PROB (test cod e = 32332) <1/20,000 TRISOMY 18 (T18) (test code = 403360) Low probability T18 PRE-TEST PROB (test code = 710704) 1/2,500 T18 POST-TEST PROB (test cod e = 371977) <1/20,000 TRISOMY 13 (T13) (test code = 470216) Low probability T13 PRE-TEST PROB (test code = 604921) T13 POST-TEST PROB (test cod e = 838185) <1/20,000 INTERPRETATION (test code = 811196) See Note IMPORTANT INFORMATION (test code = 097942) See Note RECOMMENDATION (test code = 476709) See Note GESTATION AT JOHANNE (W) (test code = 095901) 14 weeks GESTATION AT J[facility]NE (D) (test code = 259754) 3 days DELIVERY DATE (EST.) (test code = 357158) 03/02/2024 PROVIDED HISTORY INFORMATION (test code = 958091) NUMBER OF FETUSES (test code = 276266) Romero MATERNAL WEIGHT (test code = 811457) 144 LBS DATING METHOD (test code = 675364) NORTH LMP OR NORTH DATE (test code = 637577) 05/27/2023 IVF (test code = 072154) NO PATIENT CONSENT (test code = 092922) YES SEX (test code = 586326) See Note Topher MichelJOY W/ [id number] 00:00:00* Test Item Value Reference Range Interpretation Comme nts FINAL NIPS RESULT (test code = 26453) Low Risk SEX (test code = 82905) Female FRACTION (EST.) (test code = 97193) 6 % TRISOMY 21 (T21) (test code = 36311) Low probability T21 PRE-TEST PROB (test code = 48517) 1/1,126 T21 POST-TEST PROB (test cod e = 09532) <1/20,000 TRISOMY 18 (T18) (test code = 698982) Low probability T18 PRE-TEST PROB (test code = 642960) 1/2,500 T18 POST-TEST PROB (test cod e = 328821) <1/20,000 TRISOMY 13 (T13) (test code = 815672) Low probability T13 PRE-TEST PROB (test code = 123718) 1/6,927 T13 POST-TEST PROB (test cod e = 196065) <1/20,000 INTERPRETATION (test code = 558568) See Note IMPORTANT INFORMATION (test code = 782466) See Note RECOMMENDATION (test code = 185338) See Note GESTATION AT JOHANNE (W) (test code = 441319) 14 weeks GESTATION AT J[facility] (D) (test code = 782320) 3 days DELIVERY DATE (EST.) (test code = 473904) 03/02/2024 PROVIDED HISTORY INFORMATION (test code = 184749) NUMBER OF FETUSES (test code = 060689) Romero MATERNAL WEIGHT (test code = 270337) 144 LBS DATING METHOD (test code = 027981) NORTH LMP OR NORTH DATE (test code = 617583) 05/27/2023 IVF (test code = 888061) NO PATIENT CONSENT (test code = 142576) YES SEX (test code = 072232) See Note Topher Cody W/ [id number] 00:00:00* Test Item Value Reference Range Interpretation Comme nts FINAL NIPS RESULT (test code = 04003) Low Risk SEX (test code = 66767) Female FRACTION (EST.) (test code = 42248) 6 % TRISOMY 21 (T21) (test code = 34248) Low probability T21 PRE-TEST PROB (test code = 53048) 1/1,126 T21 POST-TEST PROB (test cod e = 55887) <1/20,000 TRISOMY 18 (T18) (test code = 426476) Low probability T18 PRE-TEST PROB (test code = 564616) 1/2,500 T18 POST-TEST PROB (test cod e = 998884) <1/20,000 TRISOMY 13 (T13) (test code = 099792) Low probability T13 PRE-TEST PROB (test code = 942696) 1/6,927 T13 POST-TEST PROB (test cod e = 088398) <1/20,000 INTERPRETATION (test code = 981945) See Note IMPORTANT INFORMATION (test code = 024547) See Note RECOMMENDATION (test code = 755584) See Note GESTATION AT JOHANNE (W) (test code = 945695) 14 weeks GESTATION AT JOHANNE (D) (test code = 675699) 3 days DELIVERY DATE (EST.) (test code = 519264) 03/02/2024 PROVIDED HISTORY INFORMATION (test code = 939928) NUMBER OF FETUSES (test code = 796118) Romero MATERNAL WEIGHT (test code = 489378) 144 LBS DATING METHOD (test code = 639803) NORTH LMP OR NORTH DATE (test code = 482395) 05/27/2023 IVF (test code = 905447) NO PATIENT CONSENT (test code = 544894) YES SEX (test code = 696309) See Note Topher Cody W/ [id number] 00:00:00* Test Item Value Reference Range Interpretation Comme nts FINAL NIPS RESULT (test code = 56327) Low Risk SEX (test code = 57054) Female FRACTION (EST.) (test code = 97059) 6 % TRISOMY 21 (T21) (test code = 34615) Low probability T21 PRE-TEST PROB (test code = 50548) 10/15,126 T21 POST-TEST PROB (test cod e = 07651) <1/20,000 TRISOMY 18 (T18) (test code = 854704) Low probability T18 PRE-TEST PROB (test code = 058424) 1/2,500 T18 POST-TEST PROB (test cod e = 042268) <1/20,000 TRISOMY 13 (T13) (test code = 408324) Low probability T13 PRE-TEST PROB (test code = 478128) 6,927 T13 POST-TEST PROB (test cod e = 892115) <1/20,000 INTERPRETATION (test code = 547891) See Note IMPORTANT INFORMATION (test code = 085080) See Note RECOMMENDATION (test code = 367935) See Note GESTATION AT JOHANNE (W) (test code = 986438) 14 weeks GESTATION AT JOHANNE (D) (test code = 868260) 3 days DELIVERY DATE (EST.) (test code = 542524) 03/02/2024 PROVIDED HISTORY INFORMATION (test code = 369933) NUMBER OF FETUSES (test code = 382408) Romero MATERNAL WEIGHT (test code = 483986) 144 LBS DATING METHOD (test code = 894945) NORTH LMP OR NORTH DATE (test code = 694733) 05/27/2023 IVF (test code = 310069) NO PATIENT CONSENT (test code = 519109) YES SEX (test code = 184976) See Note Topher Cody W/ [id number] 00:00:00* Test Item Value Reference Range Interpretation Comme nts FINAL NIPS RESULT (test code = 49063) Low Risk SEX (test code = 09333) Female FRACTION (EST.) (test code = 16325) 6 % TRISOMY 21 (T21) (test code = 97501) Low probability T21 PRE-TEST PROB (test code = 87562) T21 POST-TEST PROB (test cod e = 05599) <1/20,000 TRISOMY 18 (T18) (test code = 867192) Low probability T18 PRE-TEST PROB (test code = 475684) 1/2,500 T18 POST-TEST PROB (test cod e = 120850) <1/20,000 TRISOMY 13 (T13) (test code = 537357) Low probability T13 PRE-TEST PROB (test code = 391773) 6,927 T13 POST-TEST PROB (test cod e = 411191) <1/20,000 INTERPRETATION (test code = 789353) See Note IMPORTANT INFORMATION (test code = 215438) See Note RECOMMENDATION (test code = 426748) See Note GESTATION AT JOHANNE (W) (test code = 855151) 14 weeks GESTATION AT JOHANNE (D) (test code = 192898) 3 days DELIVERY DATE (EST.) (test code = 698323) 03/02/2024 PROVIDED HISTORY INFORMATION (test code = 286183) NUMBER OF FETUSES (test code = 858697) Romero MATERNAL WEIGHT (test code = 036125) 144 LBS DATING METHOD (test code = 347048) NORTH LMP OR NORTH DATE (test code = 119054) 05/27/2023 IVF (test code = 686951) NO PATIENT CONSENT (test code = 061227) YES SEX (test code = 259493) See Note Topher Cody W/ [id number] 00:00:00* Test Item Value Reference Range Interpretation Comme nts FINAL NIPS RESULT (test code = 51786) Low Risk SEX (test code = 73190) Female FRACTION (EST.) (test code = 20028) 6 % TRISOMY 21 (T21) (test code = 56360) Low probability T21 PRE-TEST PROB (test code = 00724) T21 POST-TEST PROB (test cod e = 86834) <1/20,000 TRISOMY 18 (T18) (test code = 324707) Low probability T18 PRE-TEST PROB (test code = 825043) 1/2,500 T18 POST-TEST PROB (test cod e = 591760) <1/20,000 TRISOMY 13 (T13) (test code = 630122) Low probability T13 PRE-TEST PROB (test code = 293417) 16,927 T13 POST-TEST PROB (test cod e = 431392) <1/20,000 INTERPRETATION (test code = 304344) See Note IMPORTANT INFORMATION (test code = 295454) See Note RECOMMENDATION (test code = 749133) See Note GESTATION AT JOHANNE (W) (test code = 512048) 14 weeks GESTATION AT JOHANNE (D) (test code = 209223) 3 days DELIVERY DATE (EST.) (test code = 535624) 03/02/2024 PROVIDED HISTORY INFORMATION (test code = 279232) NUMBER OF FETUSES (test code = 709882) Romero MATERNAL WEIGHT (test code = 084195) 144 LBS DATING METHOD (test code = 193959) NORTH LMP OR NORTH DATE (test code = 991779) 05/27/2023 IVF (test code = 632156) NO PATIENT CONSENT (test code = 319985) YES SEX (test code = 733119) See Note Topher Pal Karine URINE PROVIDED:2023-09-06 06:04:57* Test Item Value Reference Range Interpretation Comme nts NO URINE PROVIDED: (test code = 986) (NOTE) NOTE: Patient urine was not provided. Urine testing will be noted out if no urine specimen is received in an appropriate period of time. UNLESS OTHERWISE INDICATED, ALL TESTING PERFORMED AT [facility] [address] [place] [address] GEOMAGNETICIAN: SUSAN YANEZ M.D. CLIA NUMBER [id number] [place]. [id number] [ADDED]2023-09-06 00:00:00* Test Item Value Reference Range Interpretation Comme nts NO URINE PROVIDED: (test code = 986) (NOTE) PDFE (test code = PDFReport) PDF Topher MichelHailee [ADDED]2023-09-06 00:00:00* Test Item Value Reference Range [...] (NOTE) PDFE (test code = PDFReport) KATYA Hubbard [ADDED]2023-09-06 00:00:00* Test Item Value Reference [...] (NOTE) PDFE (test code = PDFReport) KATYA Hubbard [ADDED]2023-09-06 00:00:00* Test Item Value Reference Range Interpretation Comme nts NO URINE PROVIDED: (test code = 986) (NOTE) PDFE (test code = PDFReport) PDF Topher Hubbard [ADDED]2023-09-06 00:00:00* Test Item Value Reference Range Interpretation Comme nts NO URINE PROVIDED: (test code = 986) (NOTE) PDFE (test code = PDFReport) KATYA Hubbard [ADDED]2023-09-06 00:00:00* Test Item Value Reference Range Interpretation Comme nts NO URINE PROVIDED: (test code = 986) (NOTE) PDFE (test code = PDFReport) KATYA MichelCULTKAYLEE, [id number] 10:47:23SPECIMEN NUMBER: [id number] CULTURE, URINE SPECIMEN NUMBER: [id number] SPECIMEN COMMENT: URINE SOURCE: URINE REPORT STATUS: FINAL FINAL REPORT: 08/19/2023 10-50,000 CFU/ML MIXED MICROBIAL POPULATION PRESENT, NO PREDOMINATING ORGANISMS;PROBABLE CONTAMINANTS. UNLESS OTHERWISE INDICATED, ALL TESTING PERFORMED AT [facility] [address] [place] [address] GEOMAGNETICIAN:SUSAN YANEZ M.D. CLIA NUMBER [id number] [facility] [place]. [id number], [id number] 00:00:00* Test Item Value Reference Range Interpretation Comme nts CULTURE, URINE (test code = 92807) SPECIMEN NUMBER: [id number] Topher Juarez [id number] 00:00:00* Test Item Value Reference Range Interpretation Comme nts CULTURE, URINE (test code = 41220) SPECIMEN NUMBER: [id number] Topher WellsLTKAYLEE [id number] 00:00:00* Test Item Value Reference Range Interpretation Comme nts CULTURE, URINE (test code = 58503) SPECIMEN NUMBER: [id number] Topher WellsLTKAYLEE, [id number] 00:00:00* Test Item Value Reference Range Interpretation Comme nts CULTURE, URINE (test code = 25960) SPECIMEN NUMBER: [id number] Topher Juarez [id number] 00:00:00* Test Item Value Reference Range Interpretation Comme nts CULTURE, URINE (test code = 34769) SPECIMEN NUMBER: [id number] Topher WellsLTKAYLEE, [id number] 00:00:00* Test Item Value Reference Range Interpretation Comme nts CULTURE, URINE (test code = 55495) SPECIMEN NUMBER: [id number] Topher WellsLTKAYLEE, [id number] 00:00:00* Test Item Value Reference Range Interpretation Comme nts CULTURE, URINE (test code = 92773) SPECIMEN NUMBER: [id number] Topher Juarez, [id number] 00:00:00* Test Item Value Reference Range Interpretation Comme nts CULTURE, URINE (test code = 30362) SPECIMEN NUMBER: [id number] Topher WellsLTKAYLEE, [id number] 00:00:00* Test Item Value Reference Range Interpretation Comme nts CULTURE, URINE (test code = 30709) SPECIMEN NUMBER: [id number] Topher WellsLTKAYLEE, [id number] 00:00:00* Test Item Value Reference Range Interpretation Comme nts CULTURE, URINE (test code = 68868) SPECIMEN NUMBER: [id number] Topher WellsLTURE, [id number] 00:00:00* Test Item Value Reference Range Interpretation Comme nts CULTURE, URINE (test code = 92107) SPECIMEN NUMBER: [id number] Topher Juarez, [id number] 00:00:00* Test Item Value Reference Range Interpretation Comme nts CULTURE, URINE (test code = 21062) SPECIMEN NUMBER: [id number] Topher Juarez [id number] 00:00:00* Test Item Value Reference Range Interpretation Comme nts CULTURE, URINE (test code = 41761) SPECIMEN NUMBER: [id number] Topher WellsLTKAYLEE, [id number] 00:00:00* Test Item Value Reference Range Interpretation Comme nts CULTURE, URINE (test code = 15734) SPECIMEN NUMBER: [id number] Topher Juarez, [id number] 00:00:00* Test Item Value Reference Range Interpretation Comme nts CULTURE, URINE (test code = 09664) SPECIMEN NUMBER: [id number] Topher WellsLTKAYLEE, [id number] 00:00:00* Test Item Value Reference Range Interpretation Comme nts CULTURE, URINE (test code = 01282) SPECIMEN NUMBER: [id number] Topher WellsLTKAYLEE [id number] 00:00:00* Test Item Value Reference Range Interpretation Comme nts CULTURE, URINE (test code = 52356) SPECIMEN NUMBER: [id number] Topher Juarez, [id number] 00:00:00* Test Item Value Reference Range Interpretation Comme nts CULTURE, URINE (test code = 27123) SPECIMEN NUMBER: [id number] Topher MichelHEMOGLOBIN [id number] 11:52:56* Test Item Value Reference Range Interpretation Comme nts HEMOGLOBIN A1 (test code = 2575) 97.6 % 95.0-98.5 HEMOGLOBIN A2 (test code = 2576) 2.4 % 1.6-3.7 HEMOGLOBIN F () (test code = 2722) 0.0 % 0.0-2.0 HEMOGLOBIN S (test code = 2724) NONE % NONE DETECTED HEMOGLOBIN C (test code = 2726) NONE % NONE DETECTED OTHER HEMOGLOBIN VARIANT (test code = 27499) NONE DETEC % NONE DETECTED PATHOLOGIST'S INTERPRETATION [...] THE DIAGNOSIS OFBETA-THALASSEMIA. DEDE BACA M.D. HEMOGLOBIN [id number] 00:00:00* Test Item Value Reference Range Interpretation Comme nts HEMOGLOBIN A1 (test code = 2575) 97.6 % HEMOGLOBIN A2 (test code = 2576) 2.4 % HEMOGLOBIN F () (test c ode = 2722) 0.0 % HEMOGLOBIN S (test code = 2724) NONE % HEMOGLOBIN C (test code = 2726) NONE % OTHER HEMOGLOBIN VARIANT (te st code = 98771) NONE DETEC % PATHOLOGIST'S INTERPRETATION (test code = 2577) (NOTE) Topher Aguillon AustinHEMOGLOBIN [id number] 00:00:00* Test Item Value Reference Range Interpretation Comme nts HEMOGLOBIN A1 (test code = 2575) 97.6 % HEMOGLOBIN A2 (test code = 2576) 2.4 % HEMOGLOBIN F () (test c ode = 2722) 0.0 % HEMOGLOBIN S (test code = 2724) NONE % HEMOGLOBIN C (test code = 2726) NONE % OTHER HEMOGLOBIN VARIANT (te st code = 47956) NONE DETEC % PATHOLOGIST'S INTERPRETATION (test code = 2577) (NOTE) Topher Aguillon AustinHEMOGLOBIN [id number] 00:00:00* Test Item Value Reference Range Interpretation Comme nts HEMOGLOBIN A1 (test code = 2575) 97.6 % HEMOGLOBIN A2 (test code = 2576) 2.4 % HEMOGLOBIN F () (test c ode = 2722) 0.0 % HEMOGLOBIN S (test code = 2724) NONE % HEMOGLOBIN C (test code = 2726) NONE % OTHER HEMOGLOBIN VARIANT (te st code = 48214) NONE DETEC % PATHOLOGIST'S INTERPRETATION (test code = 2577) (NOTE) Topher Aguillon AustinHEMOGLOBIN [id number] 00:00:00* Test Item Value Reference Range Interpretation Comme nts HEMOGLOBIN A1 (test code = 2575) 97.6 % HEMOGLOBIN A2 (test code = 2576) 2.4 % HEMOGLOBIN F () (test c ode = 2722) 0.0 % HEMOGLOBIN S (test code = 2724) NONE % HEMOGLOBIN C (test code = 2726) NONE % OTHER HEMOGLOBIN VARIANT (te st code = 71150) NONE DETEC % PATHOLOGIST'S INTERPRETATION (test code = 2577) (NOTE) Topher Aguillon AustinHEMOGLOBIN [id number] 00:00:00* Test Item Value Reference Range Interpretation Comme nts HEMOGLOBIN A1 (test code = 2575) 97.6 % HEMOGLOBIN A2 (test code = 2576) 2.4 % HEMOGLOBIN F () (test c ode = 2722) 0.0 % HEMOGLOBIN S (test code = 2724) NONE % HEMOGLOBIN C (test code = 2726) NONE % OTHER HEMOGLOBIN VARIANT (te st code = 15122) NONE DETEC % PATHOLOGIST'S INTERPRETATION (test code = 2577) (NOTE) Topher Aguillon AustinHEMOGLOBIN [id number] 00:00:00* Test Item Value Reference Range Interpretation Comme nts HEMOGLOBIN A1 (test code = 2575) 97.6 % HEMOGLOBIN A2 (test code = 2576) 2.4 % HEMOGLOBIN F () (test c ode = 2722) 0.0 % HEMOGLOBIN S (test code = 2724) NONE % HEMOGLOBIN C (test code = 2726) NONE % OTHER HEMOGLOBIN VARIANT (te st code = 40778) NONE DETEC % PATHOLOGIST'S INTERPRETATION (test code = 2577) (NOTE) Topher Aguillon AustinHEMOGLOBIN [id number] 00:00:00* Test Item Value Reference Range Interpretation Comme nts HEMOGLOBIN A1 (test code = 2575) 97.6 % HEMOGLOBIN A2 (test code = 2576) 2.4 % HEMOGLOBIN F () (test c ode = 2722) 0.0 % HEMOGLOBIN S (test code = 2724) NONE % HEMOGLOBIN C (test code = 2726) NONE % OTHER HEMOGLOBIN VARIANT (te st code = 75199) NONE DETEC % PATHOLOGIST'S INTERPRETATION (test code = 2577) (NOTE) Topher Aguillon AustinHEMOGLOBIN [id number] 00:00:00* Test Item Value Reference Range Interpretation Comme nts HEMOGLOBIN A1 (test code = 2575) 97.6 % HEMOGLOBIN A2 (test code = 2576) 2.4 % HEMOGLOBIN F () (test c ode = 2722) 0.0 % HEMOGLOBIN S (test code = 2724) NONE % HEMOGLOBIN C (test code = 2726) NONE % OTHER HEMOGLOBIN VARIANT (te st code = 12172) NONE DETEC % PATHOLOGIST'S INTERPRETATION (test code = 2577) (NOTE) Topher Aguillon AustinHEMOGLOBIN [id number] 00:00:00* Test Item Value Reference Range Interpretation Comme nts HEMOGLOBIN A1 (test code = 2575) 97.6 % HEMOGLOBIN A2 (test code = 2576) 2.4 % HEMOGLOBIN F () (test c ode = 2722) 0.0 % HEMOGLOBIN S (test code = 2724) NONE % HEMOGLOBIN C (test code = 2726) NONE % OTHER HEMOGLOBIN VARIANT (te st code = 32410) NONE DETEC % PATHOLOGIST'S INTERPRETATION (test code = 2577) (NOTE) Topher Aguillon AustinHEMOGLOBIN [id number] 00:00:00* Test Item Value Reference Range Interpretation Comme nts HEMOGLOBIN A1 (test code = 2575) 97.6 % HEMOGLOBIN A2 (test code = 2576) 2.4 % HEMOGLOBIN F () (test c ode = 2722) 0.0 % HEMOGLOBIN S (test code = 2724) NONE % HEMOGLOBIN C (test code = 2726) NONE % OTHER HEMOGLOBIN VARIANT (te st code = 79902) NONE DETEC % PATHOLOGIST'S INTERPRETATION (test code = 2577) (NOTE) Topher Aguillon AustinHEMOGLOBIN [id number] 00:00:00* Test Item Value Reference Range Interpretation Comme nts HEMOGLOBIN A1 (test code = 2575) 97.6 % HEMOGLOBIN A2 (test code = 2576) 2.4 % HEMOGLOBIN F () (test c ode = 2722) 0.0 % HEMOGLOBIN S (test code = 2724) NONE % HEMOGLOBIN C (test code = 2726) NONE % OTHER HEMOGLOBIN VARIANT (te st code = 86036) NONE DETEC % PATHOLOGIST'S INTERPRETATION (test code = 2577) (NOTE) Topher Aguillon AustinHEMOGLOBIN [id number] 00:00:00* Test Item Value Reference Range Interpretation Comme nts HEMOGLOBIN A1 (test code = 2575) 97.6 % HEMOGLOBIN A2 (test code = 2576) 2.4 % HEMOGLOBIN F () (test c ode = 2722) 0.0 % HEMOGLOBIN S (test code = 2724) NONE % HEMOGLOBIN C (test code = 2726) NONE % OTHER HEMOGLOBIN VARIANT (te st code = 66912) NONE DETEC % PATHOLOGIST'S INTERPRETATION (test code = 2577) (NOTE) Topher Aguillon AustinHEMOGLOBIN [id number] 00:00:00* Test Item Value Reference Range Interpretation Comme nts HEMOGLOBIN A1 (test code = 2575) 97.6 % HEMOGLOBIN A2 (test code = 2576) 2.4 % HEMOGLOBIN F () (test c ode = 2722) 0.0 % HEMOGLOBIN S (test code = 2724) NONE % HEMOGLOBIN C (test code = 2726) NONE % OTHER HEMOGLOBIN VARIANT (te st code = 81834) NONE DETEC % PATHOLOGIST'S INTERPRETATION (test code = 2577) (NOTE) Topher Aguillon AustinHEMOGLOBIN [id number] 00:00:00* Test Item Value Reference Range Interpretation Comme nts HEMOGLOBIN A1 (test code = 2575) 97.6 % HEMOGLOBIN A2 (test code = 2576) 2.4 % HEMOGLOBIN F () (test c ode = 2722) 0.0 % HEMOGLOBIN S (test code = 2724) NONE % HEMOGLOBIN C (test code = 2726) NONE % OTHER HEMOGLOBIN VARIANT (te st code = 39251) NONE DETEC % PATHOLOGIST'S INTERPRETATION (test code = 2577) (NOTE) Topher Aguillon AustinHEMOGLOBIN [id number] 00:00:00* Test Item Value Reference Range Interpretation Comme nts HEMOGLOBIN A1 (test code = 2575) 97.6 % HEMOGLOBIN A2 (test code = 2576) 2.4 % HEMOGLOBIN F () (test c ode = 2722) 0.0 % HEMOGLOBIN S (test code = 2724) NONE % HEMOGLOBIN C (test code = 2726) NONE % OTHER HEMOGLOBIN VARIANT (te st code = 71331) NONE DETEC % PATHOLOGIST'S INTERPRETATION (test code = 2577) (NOTE) Topher Aguillon AustinHEMOGLOBIN [id number] 00:00:00* Test Item Value Reference Range Interpretation Comme nts HEMOGLOBIN A1 (test code = 2575) 97.6 % HEMOGLOBIN A2 (test code = 2576) 2.4 % HEMOGLOBIN F () (test c ode = 2722) 0.0 % HEMOGLOBIN S (test code = 2724) NONE % HEMOGLOBIN C (test code = 2726) NONE % OTHER HEMOGLOBIN VARIANT (te st code = 95547) NONE DETEC % PATHOLOGIST'S INTERPRETATION (test code = 2577) (NOTE) Topher Aguillon AustinHEMOGLOBIN [id number] 00:00:00* Test Item Value Reference Range Interpretation Comme nts HEMOGLOBIN A1 (test code = 2575) 97.6 % HEMOGLOBIN A2 (test code = 2576) 2.4 % HEMOGLOBIN F () (test c ode = 2722) 0.0 % HEMOGLOBIN S (test code = 2724) NONE % HEMOGLOBIN C (test code = 2726) NONE % OTHER HEMOGLOBIN VARIANT (te st code = 50889) NONE DETEC % PATHOLOGIST'S INTERPRETATION (test code = 2577) (NOTE) Topher Aguillon AustinHEMOGLOBIN [id number] 00:00:00* Test Item Value Reference Range Interpretation Comme nts HEMOGLOBIN A1 (test code = 2575) 97.6 % HEMOGLOBIN A2 (test code = 2576) 2.4 % HEMOGLOBIN F () (test c ode = 2722) 0.0 % HEMOGLOBIN S (test code = 2724) NONE % HEMOGLOBIN C (test code = 2726) NONE % OTHER HEMOGLOBIN VARIANT (te st code = 54466) NONE DETEC % PATHOLOGIST'S INTERPRETATION (test code = 2577) (NOTE) Topher MichelPAP TEST, THINPREP, [id number] 16:57:26* Test Item Value Reference Range Interpretation Comme nts SOURCE: (test code = 8001) Cervical/Endoce rvical SLIDES: (test code = 8011) 2 LMP: (test code = 8021) 05/27/2023 SPECIMEN ADEQUACY: (test code = 00846) (NOTE) Satisfactory for evaluation. Endocervical cells/transformation zone component present. INTERPRETATION: (test code = 03036) NILM/NO EPITH. ABNORMALITY;SEE BELOW --- - NEGATIVE FOR INTRAEPITHELIAL LESION OR MALIGNANCY (NILM) ---- OTHER COMMENTS: (test code = 8081) (NOTE) Shift in chrystal suggestive of bacterial vaginosis. Glacial acetic acid added due to blood/mucus in specimen. ANIMAL TECHNICIAN : (test code = 8101) Jennifer Martell CT(ASCP) QC TECHNOLOGIST: (test code = 8111) Johnnie Vergara,[facility](ASCP)I LOCATION: (test code = 57870) (NOTE) Specimens proces sed and interpreted at [facility], [address] [place] [address], , CLIA: [id number] CPT: (test code = 8140) (NOTE) 19990 UNLESS OTH ERWISE INDICATED, COMPUTER AIDED AND ANIMAL TECHNICIAN SCREENING PERFORMED. The Pap test is a screening test with an inherent, but low probability of error. Your patient should be reminded to consult you immediately if she experiences any suspicious signs or symptoms, regardless of her Pap test result. An alternate report format containing images or consolidated prior Pap history is available as applicable. VARICELLA ZOSTER [id number] 13:20:46* Test Item Value Reference Range Interpretation Comme nts VARICELLA ZOSTER IgG (test code = 74844) 1182 INDEX SEE BELOW INTERPRETATION VZV IgG NEGATIVE . . . . . . . . . . . . INDEX <135 EQUIVOCAL. . . . . . . . . . . . INDEX 135-164 NOTE: CONSIDER RETESTING IN A CLINICALLY SUITABLE PERIOD OF TIME, NO SOONER THAN 1-2 WEEKS. POSITIVE . . . . . . . . . . . . INDEX >=165 HCG, [id number] 06:33:57* Test Item Value Reference Range Interpretation Comme nts HCG, QUANTITATIVE (test code = 2506) 00546 MIU/ML SEE BELOW EXPECTED VALUES FOR HCG [...] . . . . . . MIU/ML 1-4ANVZ-SOBLOWRRCK FEMALES . . . . . . . . . . . . MIU/ML <=7 DRUG ABUSE SCREEN 10 REFLEX [id number] 05:54:57* Test Item Value Reference Range Interpretation Comme nts AMPHETAMINES (test code = 3201) NEGATIVE NEGATIVE BARBITURATES (test code = 3202) NEGATIVE NEGATIVE BENZODIAZEPINES (test code = 3203) NEGATIVE NEGATIVE CANNABINOIDS (test code = 3204) NEGATIVE NEGATIVE COCAINE METABOLITE (test code = 3205) NEGATIVE NEGATIVE OPIATES (test code = 3209) NEGATIVE NEGATIVE OXYCODONE (test code = 48889) NEGATIVE NEGATIVE PHENCYCLIDINE (test code = 3210) NEGATIVE NEGATIVE METHADONE (test code = 3207) NEGATIVE NEGATIVE BUPRENORPHINE (test code = 16353) NEGATIVE NEGATIVE SOURCE (test code = 882096) URINE SEE BELOW FO R THRESHOLDS AND [...] PERFORMED AT [facility] [address] [place] [address] GEOMAGNETICIAN: SUSAN YANEZ M.D. CLIA NUMBER [id number] [facility] [place]. [id number] OBSTETRIC PANEL + [id number] 05:53:01* Test Item Value Reference Range Interpretation [...] 0.00-0.10 ABS NUCLEATED RBCS (test code = 75527) 0.00 K/UL 0.00-0.11 BLOOD TYPE AND RH [...] BELOW RUBELLA IgG INTERP (test code = 09888) REACTIVE REACTIVE INTERPRETATI ON UNITS RANGE NON-REACTIVE/NON-IMM UNE IU/ML <10 REACTIVE/IMMUNE IU/ML >=10 HEPATITIS B SURF AG (test code = 2739) NON-REACTIVE NON-REACTIVE RPR (test code = 78975) NON-REACTIVE NON-REACTIVE RPR TITER (test code = 3500) NOT INDIC. TITER NOT INDIC. HIV 1/2 4TH GEN, RFLX CONF (test code = 3514) NON-REACTIVE NON-REACTIVE HEPATITIS C [id number] 05:53:01* Test Item Value Reference Range Interpretation Comme nts HEPATITIS C ANTIBODY (test c ode = 4675) NON-REACTIVE NON-REACTIVE [id number] 03:48:39* Test Item Value Reference Range Interpretation Comme nts RPR RESULT (test code = 3501) NON-REACTIVE NON-REACTIVE RPR TITER (test code = 3500) NOT INDIC. TITER NOT INDIC. OBSTETRIC PANEL + [id number] 00:00:00* Test Item Value Reference Range Interpretation [...] K/UL ABS NUCLEATED RBCS (test code = 36570) 0.00 K/UL BLOOD TYPE AND RH (test code = 3901) B POSITIVE ANTIBODY SCREEN (test code = 3902) NEGATIVE RUBELLA ANTIBODY SCREEN (test code = 4600) 177 IU/ML RUBELLA IgG INTERP (test code = 47406) REACTIVE HEPATITIS B SURF AG (test code = 2739) NON-REACTIVE RPR (test code = 13768) NON-REACTIVE RPR TITER (test code = 3500) NOT INDIC. TITER HIV 1/2 4TH GEN, RFLX CONF (test code = 3514) NON-REACTIVE Topher MichelHEPATITIS C [id number] 00:00:00* Test Item Value Reference Range Interpretation Comme nts HEPATITIS C ANTIBODY (test c ode = 4675) NON-REACTIVE Topher MichelPAP TEST, THINPREP, [id number] 00:00:00* Test Item Value Reference Range Interpretation Comme nts SOURCE: (test code = 8001) Cervical/Endocervical SLIDES: (test code = 8011) 2 LMP: (test code = 8021) 05/27/2023 SPECIMEN ADEQUACY: (test code = 52488) (NOTE) INTERPRETATION: (test code = 09275) NILM/NO EPITH. ABNORMALITY;SEE BELOW OTHER COMMENTS: (test code = 8081) (NOTE) ANIMAL TECHNICIAN: (test code = 8101) Jennifer Martell, CT(ASCP) QC TECHNOLOGIST: (test code = 8111) Johnnie VergaraSCT(ASCP)IAC LOCATION: (test code = 53997) (NOTE) CPT: (test code = 8140) (NOTE) Topher MichelVARICELLA ZOSTER [id number] 00:00:00* Test Item Value Reference Range Interpretation Comme nts VARICELLA ZOSTER IgG (test c ode = 21543) 1182 INDEX Topher MichelDRUG ABUSE SCREEN 10 REFLEX [id number] 00:00:00* Test Item Value Reference Range Interpretation Comme nts AMPHETAMINES (test code = 3201) NEGATIVE BARBITURATES (test code = 3202) NEGATIVE BENZODIAZEPINES (test code = 3203) NEGATIVE CANNABINOIDS (test code = 3204) NEGATIVE COCAINE METABOLITE (test cod e = 3205) NEGATIVE OPIATES (test code = 3209) NEGATIVE OXYCODONE (test code = 05241) NEGATIVE PHENCYCLIDINE (test code = 3210) NEGATIVE METHADONE (test code = 3207) NEGATIVE BUPRENORPHINE (test code = 86795) NEGATIVE SOURCE (test code = 629555) URINE Topher MichelHCG, [id number] 00:00:00* Test Item Value Reference Range Interpretation Comme nts HCG, QUANTITATIVE (test code = 2506) 85373 MIU/ML Topher [id number] 00:00:00* Test Item Value Reference Range Interpretation Comme nts RPR RESULT (test code = 3501) NON-REACTIVE RPR TITER (test code = 3500) NOT INDIC. TITER Topher MichelOBSTETRIC PANEL + [id number] 00:00:00* Test Item Value Reference Range Interpretation [...] K/UL ABS NUCLEATED RBCS (test code = 61655) 0.00 K/UL BLOOD TYPE AND RH (test code = 3901) B POSITIVE ANTIBODY SCREEN (test code = 3902) NEGATIVE RUBELLA ANTIBODY SCREEN (test code = 4600) 177 IU/ML RUBELLA IgG INTERP (test code = 10422) REACTIVE HEPATITIS B SURF AG (test code = 2739) NON-REACTIVE RPR (test code = 62024) NON-REACTIVE RPR TITER (test code = 3500) NOT INDIC. TITER HIV 1/2 4TH GEN, RFLX CONF (test code = 3514) NON-REACTIVE Topher MichelHEPATITIS C [id number] 00:00:00* Test Item Value Reference Range Interpretation Comme nts HEPATITIS C ANTIBODY (test c ode = 4675) NON-REACTIVE Topher MichelPAP TEST, THINPREP, [id number] 00:00:00* Test Item Value Reference Range Interpretation Comme nts SOURCE: (test code = 8001) Cervical/Endocervical SLIDES: (test code = 8011) 2 LMP: (test code = 8021) 05/27/2023 SPECIMEN ADEQUACY: (test code = 87845) (NOTE) INTERPRETATION: (test code = 54387) NILM/NO EPITH. ABNORMALITY;SEE BELOW OTHER COMMENTS: (test code = 8081) (NOTE) ANIMAL TECHNICIAN: (test code = 8101) Jennifer Martell, CT(ASCP) QC TECHNOLOGIST: (test code = 8111) Johnnie Vergara,SCT(ASCP)IAC LOCATION: (test code = 28987) (NOTE) CPT: (test code = 8140) (NOTE) Topher MichelVARICELLA ZOSTER [id number] 00:00:00* Test Item Value Reference Range Interpretation Comme nts VARICELLA ZOSTER IgG (test c ode = 15125) 1182 INDEX Topher MichelDRUG ABUSE SCREEN 10 REFLEX [id number] 00:00:00* Test Item Value Reference Range Interpretation Comme nts AMPHETAMINES (test code = 3201) NEGATIVE BARBITURATES (test code = 3202) NEGATIVE BENZODIAZEPINES (test code = 3203) NEGATIVE CANNABINOIDS (test code = 3204) NEGATIVE COCAINE METABOLITE (test cod e = 3205) NEGATIVE OPIATES (test code = 3209) NEGATIVE OXYCODONE (test code = 97469) NEGATIVE PHENCYCLIDINE (test code = 3210) NEGATIVE METHADONE (test code = 3207) NEGATIVE BUPRENORPHINE (test code = 41772) NEGATIVE SOURCE (test code = 841287) URINE Topher MichelHCG, [id number] 00:00:00* Test Item Value Reference Range Interpretation Comme nts HCG, QUANTITATIVE (test code = 2506) 14892 MIU/ML Topher [id number] 00:00:00* Test Item Value Reference Range Interpretation Comme nts RPR RESULT (test code = 3501) NON-REACTIVE RPR TITER (test code = 3500) NOT INDIC. TITER Topher MichelOBSTETRIC PANEL + [id number] 00:00:00* Test Item Value Reference Range Interpretation [...] K/UL ABS NUCLEATED RBCS (test code = 58150) 0.00 K/UL BLOOD TYPE AND RH (test code = 3901) B POSITIVE ANTIBODY SCREEN (test code = 3902) NEGATIVE RUBELLA ANTIBODY SCREEN (test code = 4600) 177 IU/ML RUBELLA IgG INTERP (test code = 60880) REACTIVE HEPATITIS B SURF AG (test code = 2739) NON-REACTIVE RPR (test code = 10735) NON-REACTIVE RPR TITER (test code = 3500) NOT INDIC. TITER HIV 1/2 4TH GEN, RFLX CONF (test code = 3514) NON-REACTIVE Topher MichelHEPATITIS C [id number] 00:00:00* Test Item Value Reference Range Interpretation Comme nts HEPATITIS C ANTIBODY (test c ode = 4675) NON-REACTIVE Topher MichelPAP TEST, THINPREP, [id number] 00:00:00* Test Item Value Reference Range Interpretation Comme nts SOURCE: (test code = 8001) Cervical/Endocervical SLIDES: (test code = 8011) 2 LMP: (test code = 8021) 05/27/2023 SPECIMEN ADEQUACY: (test code = 52109) (NOTE) INTERPRETATION: (test code = 18552) NILM/NO EPITH. ABNORMALITY;SEE BELOW OTHER COMMENTS: (test code = 8081) (NOTE) ANIMAL TECHNICIAN: (test code = 8101) Jennifer Martell, CT(ASCP) QC TECHNOLOGIST: (test code = 8111) Johnnie Vergara,SCT(ASCP)IAC LOCATION: (test code = 23132) (NOTE) CPT: (test code = 8140) (NOTE) Topher MichelVARICELLA ZOSTER [id number] 00:00:00* Test Item Value Reference Range Interpretation Comme nts VARICELLA ZOSTER IgG (test c ode = 67677) 1182 INDEX Topher MichelDRUG ABUSE SCREEN 10 REFLEX [id number] 00:00:00* Test Item Value Reference Range Interpretation Comme nts AMPHETAMINES (test code = 3201) NEGATIVE BARBITURATES (test code = 3202) NEGATIVE BENZODIAZEPINES (test code = 3203) NEGATIVE CANNABINOIDS (test code = 3204) NEGATIVE COCAINE METABOLITE (test cod e = 3205) NEGATIVE OPIATES (test code = 3209) NEGATIVE OXYCODONE (test code = 46717) NEGATIVE PHENCYCLIDINE (test code = 3210) NEGATIVE METHADONE (test code = 3207) NEGATIVE BUPRENORPHINE (test code = 26818) NEGATIVE SOURCE (test code = 839081) URINE Topher MichelHCG, [id number] 00:00:00* Test Item Value Reference Range Interpretation Comme nts HCG, QUANTITATIVE (test code = 2506) 73034 MIU/ML Topher [id number] 00:00:00* Test Item Value Reference Range Interpretation Comme nts RPR RESULT (test code = 3501) NON-REACTIVE RPR TITER (test code = 3500) NOT INDIC. TITER Topher MichelOBSTETRIC PANEL + [id number] 00:00:00* Test Item Value Reference Range Interpretation [...] K/UL ABS NUCLEATED RBCS (test code = 52778) 0.00 K/UL BLOOD TYPE AND RH (test code = 3901) B POSITIVE ANTIBODY SCREEN (test code = 3902) NEGATIVE RUBELLA ANTIBODY SCREEN (test code = 4600) 177 IU/ML RUBELLA IgG INTERP (test code = 70374) REACTIVE HEPATITIS B SURF AG (test code = 2739) NON-REACTIVE RPR (test code = 84838) NON-REACTIVE RPR TITER (test code = 3500) NOT INDIC. TITER HIV 1/2 4TH GEN, RFLX CONF (test code = 3514) NON-REACTIVE Topher MichelHEPATITIS C [id number] 00:00:00* Test Item Value Reference Range Interpretation Comme nts HEPATITIS C ANTIBODY (test c ode = 4675) NON-REACTIVE Topher MichelPAP TEST, THINPREP, [id number] 00:00:00* Test Item Value Reference Range Interpretation Comme nts SOURCE: (test code = 8001) Cervical/Endocervical SLIDES: (test code = 8011) 2 LMP: (test code = 8021) 05/27/2023 SPECIMEN ADEQUACY: (test code = 75600) (NOTE) INTERPRETATION: (test code = 82420) NILM/NO EPITH. ABNORMALITY;SEE BELOW OTHER COMMENTS: (test code = 8081) (NOTE) ANIMAL TECHNICIAN: (test code = 8101) Jennifer Martell, CT(ASCP) QC TECHNOLOGIST: (test code = 8111) Johnnie Vergara,SCT(ASCP)IAC LOCATION: (test code = 39879) (NOTE) CPT: (test code = 8140) (NOTE) Topher MichelVARICELLA ZOSTER [id number] 00:00:00* Test Item Value Reference Range Interpretation Comme nts VARICELLA ZOSTER IgG (test c ode = 48304) 1182 INDEX Topher MichelDRUG ABUSE SCREEN 10 REFLEX [id number] 00:00:00* Test Item Value Reference Range Interpretation Comme nts AMPHETAMINES (test code = 3201) NEGATIVE BARBITURATES (test code = 3202) NEGATIVE BENZODIAZEPINES (test code = 3203) NEGATIVE CANNABINOIDS (test code = 3204) NEGATIVE COCAINE METABOLITE (test cod e = 3205) NEGATIVE OPIATES (test code = 3209) NEGATIVE OXYCODONE (test code = 25134) NEGATIVE PHENCYCLIDINE (test code = 3210) NEGATIVE METHADONE (test code = 3207) NEGATIVE BUPRENORPHINE (test code = 27773) NEGATIVE SOURCE (test code = 776776) URINE Topher MichelHCG, [id number] 00:00:00* Test Item Value Reference Range Interpretation Comme aixa HCG, QUANTITATIVE (test code = 2506) 78129 MIU/ML Topher [id number] 00:00:00* Test Item Value Reference Range Interpretation Comme nts RPR RESULT (test code = 3501) NON-REACTIVE RPR TITER (test code = 3500) NOT INDIC. TITER Topher F AustinOBSTETRIC PANEL + [id number] 00:00:00* Test Item Value Reference Range Interpretation [...] K/UL ABS NUCLEATED RBCS (test code = 90824) 0.00 K/UL BLOOD TYPE AND RH (test code = 3901) B POSITIVE ANTIBODY SCREEN (test code = 3902) NEGATIVE RUBELLA ANTIBODY SCREEN (test code = 4600) 177 IU/ML RUBELLA IgG INTERP (test code = 73556) REACTIVE HEPATITIS B SURF AG (test code = 2739) NON-REACTIVE RPR (test code = 11186) NON-REACTIVE RPR TITER (test code = 3500) NOT INDIC. TITER HIV 1/2 4TH GEN, RFLX CONF (test code = 3514) NON-REACTIVE Topher Aguillon AustinHEPATITIS C [id number] 00:00:00* Test Item Value Reference Range Interpretation Comme nts HEPATITIS C ANTIBODY (test c ode = 4675) NON-REACTIVE Topher F AustinPAP TEST, THINPREP, [id number] 00:00:00* Test Item Value Reference Range Interpretation Comme nts SOURCE: (test code = 8001) Cervical/Endocervical SLIDES: (test code = 8011) 2 LMP: (test code = 8021) 05/27/2023 SPECIMEN ADEQUACY: (test code = 08407) (NOTE) INTERPRETATION: (test code = 44864) NILM/NO EPITH. ABNORMALITY;SEE BELOW OTHER COMMENTS: (test code = 8081) (NOTE) ANIMAL TECHNICIAN: (test code = 8101) Jennifer Martell, CT(ASC) QC TECHNOLOGIST: (test code = 8111) Johnnie Vergara,SCT(ASCP)IAC LOCATION: (test code = 18123) (NOTE) CPT: (test code = 8140) (NOTE) Topher MichelVARICELLA ZOSTER [id number] 00:00:00* Test Item Value Reference Range Interpretation Comme nts VARICELLA ZOSTER IgG (test c ode = 48957) 1182 INDEX Topher MichelDRUG ABUSE SCREEN 10 REFLEX [id number] 00:00:00* Test Item Value Reference Range Interpretation Comme nts AMPHETAMINES (test code = 3201) NEGATIVE BARBITURATES (test code = 3202) NEGATIVE BENZODIAZEPINES (test code = 3203) NEGATIVE CANNABINOIDS (test code = 3204) NEGATIVE COCAINE METABOLITE (test cod e = 3205) NEGATIVE OPIATES (test code = 3209) NEGATIVE OXYCODONE (test code = 78172) NEGATIVE PHENCYCLIDINE (test code = 3210) NEGATIVE METHADONE (test code = 3207) NEGATIVE BUPRENORPHINE (test code = 54922) NEGATIVE SOURCE (test code = 904473) URINE Topher MichelHCG, [id number] 00:00:00* Test Item Value Reference Range Interpretation Comme nts HCG, QUANTITATIVE (test code = 2506) 05547 MIU/ML Topher [id number] 00:00:00* Test Item Value Reference Range Interpretation Comme nts RPR RESULT (test code = 3501) NON-REACTIVE RPR TITER (test code = 3500) NOT INDIC. TITER Topher MichelOBSTETRIC PANEL + [id number] 00:00:00* Test Item Value Reference Range Interpretation [...] K/UL ABS NUCLEATED RBCS (test code = 87128) 0.00 K/UL BLOOD TYPE AND RH (test code = 3901) B POSITIVE ANTIBODY SCREEN (test code = 3902) NEGATIVE RUBELLA ANTIBODY SCREEN (test code = 4600) 177 IU/ML RUBELLA IgG INTERP (test code = 90123) REACTIVE HEPATITIS B SURF AG (test code = 2739) NON-REACTIVE RPR (test code = 24308) NON-REACTIVE RPR TITER (test code = 3500) NOT INDIC. TITER HIV 1/2 4TH GEN, RFLX CONF (test code = 3514) NON-REACTIVE Topher F AustinPAP TEST, THINPREP, [id number] 00:00:00* Test Item Value Reference Range Interpretation Comme nts SOURCE: (test code = 8001) Cervical/Endocervical SLIDES: (test code = 8011) 2 LMP: (test code = 8021) 05/27/2023 SPECIMEN ADEQUACY: (test code = 71605) (NOTE) INTERPRETATION: (test code = 92336) NILM/NO EPITH. ABNORMALITY;SEE BELOW OTHER COMMENTS: (test code = 8081) (NOTE) ANIMAL TECHNICIAN: (test code = 8101) Jennifer Martell, CT([facility]) QC TECHNOLOGIST: (test code = 8111) Johnnie Vergara,SCT([facility])IAC LOCATION: (test code = 26180) (NOTE) CPT: (test code = 8140) (NOTE) Topher MichelHEPATITIS C [id number] 00:00:00* Test Item Value Reference Range Interpretation Comme nts HEPATITIS C ANTIBODY (test c ode = 4675) NON-REACTIVE Topher MichelVARICELLA ZOSTER [id number] 00:00:00* Test Item Value Reference Range Interpretation Comme nts VARICELLA ZOSTER IgG (test c ode = 36153) 1182 INDEX Topher MichelDRUG ABUSE SCREEN 10 REFLEX [id number] 00:00:00* Test Item Value Reference Range Interpretation Comme nts AMPHETAMINES (test code = 3201) NEGATIVE BARBITURATES (test code = 3202) NEGATIVE BENZODIAZEPINES (test code = 3203) NEGATIVE CANNABINOIDS (test code = 3204) NEGATIVE COCAINE METABOLITE (test cod e = 3205) NEGATIVE OPIATES (test code = 3209) NEGATIVE OXYCODONE (test code = 30495) NEGATIVE PHENCYCLIDINE (test code = 3210) NEGATIVE METHADONE (test code = 3207) NEGATIVE BUPRENORPHINE (test code = 99631) NEGATIVE SOURCE (test code = 164198) URINE Topher MichelHCG, [id number] 00:00:00* Test Item Value Reference Range Interpretation Comme nts HCG, QUANTITATIVE (test code = 2506) 54912 MIU/ML Topher [id number] 00:00:00* Test Item Value Reference Range Interpretation Comme nts RPR RESULT (test code = 3501) NON-REACTIVE RPR TITER (test code = 3500) NOT INDIC. TITER Topher MichelOBSTETRIC PANEL + [id number] 00:00:00* Test Item Value Reference Range Interpretation [...] K/UL ABS NUCLEATED RBCS (test code = 83869) 0.00 K/UL BLOOD TYPE AND RH (test code = 3901) B POSITIVE ANTIBODY SCREEN (test code = 3902) NEGATIVE RUBELLA ANTIBODY SCREEN (test code = 4600) 177 IU/ML RUBELLA IgG INTERP (test code = 72531) REACTIVE HEPATITIS B SURF AG (test code = 2739) NON-REACTIVE RPR (test code = 31875) NON-REACTIVE RPR TITER (test code = 3500) NOT INDIC. TITER HIV 1/2 4TH GEN, RFLX CONF (test code = 3514) NON-REACTIVE Topher F AustinHEPATITIS C [id number] 00:00:00* Test Item Value Reference Range Interpretation Comme nts HEPATITIS C ANTIBODY (test c ode = 4675) NON-REACTIVE Topher MichelPAP TEST, THINPREP, [id number] 00:00:00* Test Item Value Reference Range Interpretation Comme nts SOURCE: (test code = 8001) Cervical/Endocervical SLIDES: (test code = 8011) 2 LMP: (test code = 8021) 05/27/2023 SPECIMEN ADEQUACY: (test code = 13390) (NOTE) INTERPRETATION: (test code = 03487) NILM/NO EPITH. ABNORMALITY;SEE BELOW OTHER COMMENTS: (test code = 8081) (NOTE) ANIMAL TECHNICIAN: (test code = 8101) Jennifer Martell, CT([facility]) QC TECHNOLOGIST: (test code = 8111) Johnnie Vergara,SCT(ASC)IAC LOCATION: (test code = 63546) (NOTE) CPT: (test code = 8140) (NOTE) Topher MichelVARICELLA ZOSTER [id number] 00:00:00* Test Item Value Reference Range Interpretation Comme nts VARICELLA ZOSTER IgG (test c ode = 11110) 1182 INDEX Topher MichelDRUG ABUSE SCREEN 10 REFLEX [id number] 00:00:00* Test Item Value Reference Range Interpretation Comme nts AMPHETAMINES (test code = 3201) NEGATIVE BARBITURATES (test code = 3202) NEGATIVE BENZODIAZEPINES (test code = 3203) NEGATIVE CANNABINOIDS (test code = 3204) NEGATIVE COCAINE METABOLITE (test cod e = 3205) NEGATIVE OPIATES (test code = 3209) NEGATIVE OXYCODONE (test code = 63859) NEGATIVE PHENCYCLIDINE (test code = 3210) NEGATIVE METHADONE (test code = 3207) NEGATIVE BUPRENORPHINE (test code = 20805) NEGATIVE SOURCE (test code = 111770) URINE Topher MichelHCG, [id number] 00:00:00* Test Item Value Reference Range Interpretation Comme nts HCG, QUANTITATIVE (test code = 2506) 84515 MIU/ML Topher [id number] 00:00:00* Test Item Value Reference Range Interpretation Comme nts RPR RESULT (test code = 3501) NON-REACTIVE RPR TITER (test code = 3500) NOT INDIC. TITER Topher MichelOBSTETRIC PANEL + [id number] 00:00:00* Test Item Value Reference Range Interpretation [...] K/UL ABS NUCLEATED RBCS (test code = 72324) 0.00 K/UL BLOOD TYPE AND RH (test code = 3901) B POSITIVE ANTIBODY SCREEN (test code = 3902) NEGATIVE RUBELLA ANTIBODY SCREEN (test code = 4600) 177 IU/ML RUBELLA IgG INTERP (test code = 99363) REACTIVE HEPATITIS B SURF AG (test code = 2739) NON-REACTIVE RPR (test code = 19235) NON-REACTIVE RPR TITER (test code = 3500) NOT INDIC. TITER HIV 1/2 4TH GEN, RFLX CONF (test code = 3514) NON-REACTIVE Topher Aguillon AustinHEPATITIS C [id number] 00:00:00* Test Item Value Reference Range Interpretation Comme nts HEPATITIS C ANTIBODY (test c ode = 4675) NON-REACTIVE Topher MichelPAP TEST, THINPREP, [id number] 00:00:00* Test Item Value Reference Range Interpretation Comme nts SOURCE: (test code = 8001) Cervical/Endocervical SLIDES: (test code = 8011) 2 LMP: (test code = 8021) 05/27/2023 SPECIMEN ADEQUACY: (test code = 62302) (NOTE) INTERPRETATION: (test code = 06211) NILM/NO EPITH. ABNORMALITY;SEE BELOW OTHER COMMENTS: (test code = 8081) (NOTE) ANIMAL TECHNICIAN: (test code = 8101) Jennifer Martell, CT([facility]) QC TECHNOLOGIST: (test code = 8111) Johnnie Vergara,SCT([facility])IAC LOCATION: (test code = 84939) (NOTE) CPT: (test code = 8140) (NOTE) Topher MichelVARICELLA ZOSTER [id number] 00:00:00* Test Item Value Reference Range Interpretation Comme nts VARICELLA ZOSTER IgG (test c ode = 21768) 1182 INDEX Topher MichelDRUG ABUSE SCREEN 10 REFLEX [id number] 00:00:00* Test Item Value Reference Range Interpretation Comme nts AMPHETAMINES (test code = 3201) NEGATIVE BARBITURATES (test code = 3202) NEGATIVE BENZODIAZEPINES (test code = 3203) NEGATIVE CANNABINOIDS (test code = 3204) NEGATIVE COCAINE METABOLITE (test cod e = 3205) NEGATIVE OPIATES (test code = 3209) NEGATIVE OXYCODONE (test code = 11516) NEGATIVE PHENCYCLIDINE (test code = 3210) NEGATIVE METHADONE (test code = 3207) NEGATIVE BUPRENORPHINE (test code = 58514) NEGATIVE SOURCE (test code = 056284) URINE Topher MichelHCG, [id number] 00:00:00* Test Item Value Reference Range Interpretation Comme nts HCG, QUANTITATIVE (test code = 2506) 37669 MIU/ML Topher [id number] 00:00:00* Test Item Value Reference Range Interpretation Comme nts RPR RESULT (test code = 3501) NON-REACTIVE RPR TITER (test code = 3500) NOT INDIC. TITER Topher MichelOBSTETRIC PANEL + [id number] 00:00:00* Test Item Value Reference Range Interpretation [...] K/UL ABS NUCLEATED RBCS (test code = 84786) 0.00 K/UL BLOOD TYPE AND RH (test code = 3901) B POSITIVE ANTIBODY SCREEN (test code = 3902) NEGATIVE RUBELLA ANTIBODY SCREEN (test code = 4600) 177 IU/ML RUBELLA IgG INTERP (test code = 85385) REACTIVE HEPATITIS B SURF AG (test code = 2739) NON-REACTIVE RPR (test code = 13714) NON-REACTIVE RPR TITER (test code = 3500) NOT INDIC. TITER HIV 1/2 4TH GEN, RFLX CONF (test code = 3514) NON-REACTIVE Topher Aguillon AustinHEPATITIS C [id number] 00:00:00* Test Item Value Reference Range Interpretation Comme nts HEPATITIS C ANTIBODY (test c ode = 4675) NON-REACTIVE Topher MichelPAP TEST, THINPREP, [id number] 00:00:00* Test Item Value Reference Range Interpretation Comme nts SOURCE: (test code = 8001) Cervical/Endocervical SLIDES: (test code = 8011) 2 LMP: (test code = 8021) 05/27/2023 SPECIMEN ADEQUACY: (test code = 28005) (NOTE) INTERPRETATION: (test code = 88801) NILM/NO EPITH. ABNORMALITY;SEE BELOW OTHER COMMENTS: (test code = 8081) (NOTE) ANIMAL TECHNICIAN: (test code = 8101) Jennifer Martell, CT([facility]) QC TECHNOLOGIST: (test code = 8111) Johnnie Vergara,SCT([facility])IAC LOCATION: (test code = 51768) (NOTE) CPT: (test code = 8140) (NOTE) Topher MichelVARICELLA ZOSTER [id number] 00:00:00* Test Item Value Reference Range Interpretation Comme nts VARICELLA ZOSTER IgG (test c ode = 87504) 1182 INDEX Topher MichelDRUG ABUSE SCREEN 10 REFLEX [id number] 00:00:00* Test Item Value Reference Range Interpretation Comme nts AMPHETAMINES (test code = 3201) NEGATIVE BARBITURATES (test code = 3202) NEGATIVE BENZODIAZEPINES (test code = 3203) NEGATIVE CANNABINOIDS (test code = 3204) NEGATIVE COCAINE METABOLITE (test cod e = 3205) NEGATIVE OPIATES (test code = 3209) NEGATIVE OXYCODONE (test code = 66767) NEGATIVE PHENCYCLIDINE (test code = 3210) NEGATIVE METHADONE (test code = 3207) NEGATIVE BUPRENORPHINE (test code = 75101) NEGATIVE SOURCE (test code = 147566) URINE Topher MichelHCG, [id number] 00:00:00* Test Item Value Reference Range Interpretation Comme nts HCG, QUANTITATIVE (test code = 2506) 36609 MIU/ML Topher [id number] 00:00:00* Test Item Value Reference Range Interpretation Comme nts RPR RESULT (test code = 3501) NON-REACTIVE RPR TITER (test code = 3500) NOT INDIC. TITER Topher MichelOBSTETRIC PANEL + [id number] 00:00:00* Test Item Value Reference Range Interpretation [...] K/UL ABS NUCLEATED RBCS (test code = 28015) 0.00 K/UL BLOOD TYPE AND RH (test code = 3901) B POSITIVE ANTIBODY SCREEN (test code = 3902) NEGATIVE RUBELLA ANTIBODY SCREEN (test code = 4600) 177 IU/ML RUBELLA IgG INTERP (test code = 99712) REACTIVE HEPATITIS B SURF AG (test code = 2739) NON-REACTIVE RPR (test code = 57519) NON-REACTIVE RPR TITER (test code = 3500) NOT INDIC. TITER HIV 1/2 4TH GEN, RFLX CONF (test code = 3514) NON-REACTIVE Topher Aguillon AustinHEPATITIS C [id number] 00:00:00* Test Item Value Reference Range Interpretation Comme nts HEPATITIS C ANTIBODY (test c ode = 4675) NON-REACTIVE Topher MichelPAP TEST, THINPREP, [id number] 00:00:00* Test Item Value Reference Range Interpretation Comme nts SOURCE: (test code = 8001) Cervical/Endocervical SLIDES: (test code = 8011) 2 LMP: (test code = 8021) 05/27/2023 SPECIMEN ADEQUACY: (test code = 44573) (NOTE) INTERPRETATION: (test code = 70380) NILM/NO EPITH. ABNORMALITY;SEE BELOW OTHER COMMENTS: (test code = 8081) (NOTE) ANIMAL TECHNICIAN: (test code = 8101) Jennifer Martell, CT([facility]) QC TECHNOLOGIST: (test code = 8111) Johnnie Vergara,SCT([facility])IAC LOCATION: (test code = 70678) (NOTE) CPT: (test code = 8140) (NOTE) Topher MichelVARICELLA ZOSTER [id number] 00:00:00* Test Item Value Reference Range Interpretation Comme nts VARICELLA ZOSTER IgG (test c ode = 36941) 1182 INDEX Topher MichelDRUG ABUSE SCREEN 10 REFLEX [id number] 00:00:00* Test Item Value Reference Range Interpretation Comme nts AMPHETAMINES (test code = 3201) NEGATIVE BARBITURATES (test code = 3202) NEGATIVE BENZODIAZEPINES (test code = 3203) NEGATIVE CANNABINOIDS (test code = 3204) NEGATIVE COCAINE METABOLITE (test cod e = 3205) NEGATIVE OPIATES (test code = 3209) NEGATIVE OXYCODONE (test code = 41759) NEGATIVE PHENCYCLIDINE (test code = 3210) NEGATIVE METHADONE (test code = 3207) NEGATIVE BUPRENORPHINE (test code = 65773) NEGATIVE SOURCE (test code = 407353) URINE Topher MichelHCG, [id number] 00:00:00* Test Item Value Reference Range Interpretation Comme nts HCG, QUANTITATIVE (test code = 2506) 24214 MIU/ML Topher [id number] 00:00:00* Test Item Value Reference Range Interpretation Comme nts RPR RESULT (test code = 3501) NON-REACTIVE RPR TITER (test code = 3500) NOT INDIC. TITER Topher MichelOBSTETRIC PANEL + [id number] 00:00:00* Test Item Value Reference Range Interpretation [...] K/UL ABS NUCLEATED RBCS (test code = 58755) 0.00 K/UL BLOOD TYPE AND RH (test code = 3901) B POSITIVE ANTIBODY SCREEN (test code = 3902) NEGATIVE RUBELLA ANTIBODY SCREEN (test code = 4600) 177 IU/ML RUBELLA IgG INTERP (test code = 35006) REACTIVE HEPATITIS B SURF AG (test code = 2739) NON-REACTIVE RPR (test code = 70073) NON-REACTIVE RPR TITER (test code = 3500) NOT INDIC. TITER HIV 1/2 4TH GEN, RFLX CONF (test code = 3514) NON-REACTIVE Topher Aguillon AustinHEPATITIS C [id number] 00:00:00* Test Item Value Reference Range Interpretation Comme nts HEPATITIS C ANTIBODY (test c ode = 4675) NON-REACTIVE Topher Aguillon AustinPAP TEST, THINPREP, [id number] 00:00:00* Test Item Value Reference Range Interpretation Comme nts SOURCE: (test code = 8001) Cervical/Endocervical SLIDES: (test code = 8011) 2 LMP: (test code = 8021) 05/27/2023 SPECIMEN ADEQUACY: (test code = 58467) (NOTE) INTERPRETATION: (test code = 71212) NILM/NO EPITH. ABNORMALITY;SEE BELOW OTHER COMMENTS: (test code = 8081) (NOTE) ANIMAL TECHNICIAN: (test code = 8101) Jennifer Martell, CT([facility]) QC TECHNOLOGIST: (test code = 8111) Johnnie Vergara,SCT([facility])IAC LOCATION: (test code = 34381) (NOTE) CPT: (test code = 8140) (NOTE) Topher MichelVARICELLA ZOSTER [id number] 00:00:00* Test Item Value Reference Range Interpretation Comme nts VARICELLA ZOSTER IgG (test c ode = 84299) 1182 INDEX Topher MichelDRUG ABUSE SCREEN 10 REFLEX [id number] 00:00:00* Test Item Value Reference Range Interpretation Comme nts AMPHETAMINES (test code = 3201) NEGATIVE BARBITURATES (test code = 3202) NEGATIVE BENZODIAZEPINES (test code = 3203) NEGATIVE CANNABINOIDS (test code = 3204) NEGATIVE COCAINE METABOLITE (test cod e = 3205) NEGATIVE OPIATES (test code = 3209) NEGATIVE OXYCODONE (test code = 56591) NEGATIVE PHENCYCLIDINE (test code = 3210) NEGATIVE METHADONE (test code = 3207) NEGATIVE BUPRENORPHINE (test code = 41214) NEGATIVE SOURCE (test code = 204409) URINE Topher MichelHCG, [id number] 00:00:00* Test Item Value Reference Range Interpretation Comme nts HCG, QUANTITATIVE (test code = 2506) 84477 MIU/ML Topher [id number] 00:00:00* Test Item Value Reference Range Interpretation Comme nts RPR RESULT (test code = 3501) NON-REACTIVE RPR TITER (test code = 3500) NOT INDIC. TITER Topher MichelOBSTETRIC PANEL + [id number] 00:00:00* Test Item Value Reference Range Interpretation [...] K/UL ABS NUCLEATED RBCS (test code = 22257) 0.00 K/UL BLOOD TYPE AND RH (test code = 3901) B POSITIVE ANTIBODY SCREEN (test code = 3902) NEGATIVE RUBELLA ANTIBODY SCREEN (test code = 4600) 177 IU/ML RUBELLA IgG INTERP (test code = 55939) REACTIVE HEPATITIS B SURF AG (test code = 2739) NON-REACTIVE RPR (test code = 82560) NON-REACTIVE RPR TITER (test code = 3500) NOT INDIC. TITER HIV 1/2 4TH GEN, RFLX CONF (test code = 3514) NON-REACTIVE Topher MichelPA TEST, THINPREP, [id number] 00:00:00* Test Item Value Reference Range Interpretation Comme nts SOURCE: (test code = 8001) Cervical/Endocervical SLIDES: (test code = 8011) 2 LMP: (test code = 8021) 05/27/2023 SPECIMEN ADEQUACY: (test code = 40820) (NOTE) INTERPRETATION: (test code = 14370) NILM/NO EPITH. ABNORMALITY;SEE BELOW OTHER COMMENTS: (test code = 8081) (NOTE) ANIMAL TECHNICIAN: (test code = 8101) MAGDA Owens(ASCP) QC TECHNOLOGIST: (test code = 8111) Johnnie Vergara,SCT(ASCP)IAC LOCATION: (test code = 05589) (NOTE) CPT: (test code = 8140) (NOTE) Topher MichelHEPATITIS C [id number] 00:00:00* Test Item Value Reference Range Interpretation Comme nts HEPATITIS C ANTIBODY (test c ode = 4675) NON-REACTIVE Topher MichelVARICELLA ZOSTER [id number] 00:00:00* Test Item Value Reference Range Interpretation Comme aixa VARICELLA ZOSTER IgG (test c ode = 28516) 1182 INDEX Topher MichelDRUG ABUSE SCREEN 10 REFLEX [id number] 00:00:00* Test Item Value Reference Range Interpretation Comme nts AMPHETAMINES (test code = 3201) NEGATIVE BARBITURATES (test code = 3202) NEGATIVE BENZODIAZEPINES (test code = 3203) NEGATIVE CANNABINOIDS (test code = 3204) NEGATIVE COCAINE METABOLITE (test cod e = 3205) NEGATIVE OPIATES (test code = 3209) NEGATIVE OXYCODONE (test code = 00609) NEGATIVE PHENCYCLIDINE (test code = 3210) NEGATIVE METHADONE (test code = 3207) NEGATIVE BUPRENORPHINE (test code = 61534) NEGATIVE SOURCE (test code = 875224) URINE Topher MichelHCG, [id number] 00:00:00* Test Item Value Reference Range Interpretation Comme aixa HCG, QUANTITATIVE (test code = 2506) 39917 MIU/ML Topher [id number] 00:00:00* Test Item Value Reference Range Interpretation Comme nts RPR RESULT (test code = 3501) NON-REACTIVE RPR TITER (test code = 3500) NOT INDIC. TITER Topher MichelOBSTETRIC PANEL + [id number] 00:00:00* Test Item Value Reference Range Interpretation [...] K/UL ABS NUCLEATED RBCS (test code = 03326) 0.00 K/UL BLOOD TYPE AND RH (test code = 3901) B POSITIVE ANTIBODY SCREEN (test code = 3902) NEGATIVE RUBELLA ANTIBODY SCREEN (test code = 4600) 177 IU/ML RUBELLA IgG INTERP (test code = 64777) REACTIVE HEPATITIS B SURF AG (test code = 2739) NON-REACTIVE RPR (test code = 75999) NON-REACTIVE RPR TITER (test code = 3500) NOT INDIC. TITER HIV 1/2 4TH GEN, RFLX CONF (test code = 3514) NON-REACTIVE Topher Pal AustinOBSTETRIC PANEL + [id number] 00:00:00* Test Item Value Reference Range Interpretation [...] K/UL ABS NUCLEATED RBCS (test code = 99069) 0.00 K/UL BLOOD TYPE AND RH (test code = 3901) B POSITIVE ANTIBODY SCREEN (test code = 3902) NEGATIVE RUBELLA ANTIBODY SCREEN (test code = 4600) 177 IU/ML RUBELLA IgG INTERP (test code = 35740) REACTIVE HEPATITIS B SURF AG (test code = 2739) NON-REACTIVE RPR (test code = 02336) NON-REACTIVE RPR TITER (test code = 3500) NOT INDIC. TITER HIV 1/2 4TH GEN, RFLX CONF (test code = 3514) NON-REACTIVE Topher Jimenez TEST, THINPREP, [id number] 00:00:00* Test Item Value Reference Range Interpretation Comme nts SOURCE: (test code = 8001) Cervical/Endocervical SLIDES: (test code = 8011) 2 LMP: (test code = 8021) 05/27/2023 SPECIMEN ADEQUACY: (test code = 84249) (NOTE) INTERPRETATION: (test code = 53950) NILM/NO EPITH. ABNORMALITY;SEE BELOW OTHER COMMENTS: (test code = 8081) (NOTE) ANIMAL TECHNICIAN: (test code = 8101) Jennifer Martell, CT(ASCP) QC TECHNOLOGIST: (test code = 8111) Johnnie Vergara,SCT(ASCP)IAC LOCATION: (test code = 17554) (NOTE) CPT: (test code = 8140) (NOTE) Topher Pradhan [id number] 00:00:00* Test Item Value Reference Range Interpretation Comme aixa HEPATITIS C ANTIBODY (test c ode = 4675) NON-REACTIVE Topher MichelVARICELLA ZOSTER [id number] 00:00:00* Test Item Value Reference Range Interpretation Comme aixa VARICELLA ZOSTER IgG (test c ode = 30834) 1182 INDEX Topher MichelDRUG ABUSE SCREEN 10 REFLEX [id number] 00:00:00* Test Item Value Reference Range Interpretation Comme nts AMPHETAMINES (test code = 3201) NEGATIVE BARBITURATES (test code = 3202) NEGATIVE BENZODIAZEPINES (test code = 3203) NEGATIVE CANNABINOIDS (test code = 3204) NEGATIVE COCAINE METABOLITE (test cod e = 3205) NEGATIVE OPIATES (test code = 3209) NEGATIVE OXYCODONE (test code = 00436) NEGATIVE PHENCYCLIDINE (test code = 3210) NEGATIVE METHADONE (test code = 3207) NEGATIVE BUPRENORPHINE (test code = 42670) NEGATIVE SOURCE (test code = 996696) URINE Topher MichelHCG, [id number] 00:00:00* Test Item Value Reference Range Interpretation Comme aixa HCG, QUANTITATIVE (test code = 2506) 88861 MIU/ML Topher [id number] 00:00:00* Test Item Value Reference Range Interpretation Comme nts RPR RESULT (test code = 3501) NON-REACTIVE RPR TITER (test code = 3500) NOT INDIC. TITER Topher MichelOBSTETRIC PANEL + [id number] 00:00:00* Test Item Value Reference Range Interpretation [...] K/UL ABS NUCLEATED RBCS (test code = 88010) 0.00 K/UL BLOOD TYPE AND RH (test code = 3901) B POSITIVE ANTIBODY SCREEN (test code = 3902) NEGATIVE RUBELLA ANTIBODY SCREEN (test code = 4600) 177 IU/ML RUBELLA IgG INTERP (test code = 44364) REACTIVE HEPATITIS B SURF AG (test code = 2739) NON-REACTIVE RPR (test code = 05094) NON-REACTIVE RPR TITER (test code = 3500) NOT INDIC. TITER HIV 1/2 4TH GEN, RFLX CONF (test code = 3514) NON-REACTIVE Topher F AustinHEPATITIS C [id number] 00:00:00* Test Item Value Reference Range Interpretation Comme nts HEPATITIS C ANTIBODY (test c ode = 4675) NON-REACTIVE Topher Aguillon AustinPAP TEST, THINPREP, [id number] 00:00:00* Test Item Value Reference Range Interpretation Comme nts SOURCE: (test code = 8001) Cervical/Endocervical SLIDES: (test code = 8011) 2 LMP: (test code = 8021) 05/27/2023 SPECIMEN ADEQUACY: (test code = 29923) (NOTE) INTERPRETATION: (test code = 86901) NILM/NO EPITH. ABNORMALITY;SEE BELOW OTHER COMMENTS: (test code = 8081) (NOTE) ANIMAL TECHNICIAN: (test code = 8101) Jennifer Martell, CT(ASCP) QC TECHNOLOGIST: (test code = 8111) Johnnie Vergara,SCT(ASCP)IAC LOCATION: (test code = 41860) (NOTE) CPT: (test code = 8140) (NOTE) Topher MichelVARICELLA ZOSTER [id number] 00:00:00* Test Item Value Reference Range Interpretation Comme nts VARICELLA ZOSTER IgG (test c ode = 79439) 1182 INDEX Topher MichelDRUG ABUSE SCREEN 10 REFLEX [id number] 00:00:00* Test Item Value Reference Range Interpretation Comme nts AMPHETAMINES (test code = 3201) NEGATIVE BARBITURATES (test code = 3202) NEGATIVE BENZODIAZEPINES (test code = 3203) NEGATIVE CANNABINOIDS (test code = 3204) NEGATIVE COCAINE METABOLITE (test cod e = 3205) NEGATIVE OPIATES (test code = 3209) NEGATIVE OXYCODONE (test code = 43155) NEGATIVE PHENCYCLIDINE (test code = 3210) NEGATIVE METHADONE (test code = 3207) NEGATIVE BUPRENORPHINE (test code = 44275) NEGATIVE SOURCE (test code = 323338) URINE Topher MichelHCG, [id number] 00:00:00* Test Item Value Reference Range Interpretation Comme nts HCG, QUANTITATIVE (test code = 2506) 54051 MIU/ML Topher [id number] 00:00:00* Test Item Value Reference Range Interpretation Comme nts RPR RESULT (test code = 3501) NON-REACTIVE RPR TITER (test code = 3500) NOT INDIC. TITER Topher MichelPAP TEST, THINPREP, [id number] 00:00:00* Test Item Value Reference Range Interpretation Comme nts SOURCE: (test code = 8001) Cervical/Endocervical SLIDES: (test code = 8011) 2 LMP: (test code = 8021) 05/27/2023 SPECIMEN ADEQUACY: (test code = 20068) (NOTE) INTERPRETATION: (test code = 06487) NILM/NO EPITH. ABNORMALITY;SEE BELOW OTHER COMMENTS: (test code = 8081) (NOTE) ANIMAL TECHNICIAN: (test code = 8101) Jennifer Martell, CT([facility]) QC TECHNOLOGIST: (test code = 8111) Johnnie Vergara,SCT(ASCP)IAC LOCATION: (test code = 45501) (NOTE) CPT: (test code = 8140) (NOTE) Topher F AustinHEPATITIS C [id number] 00:00:00* Test Item Value Reference Range Interpretation Comme aixa HEPATITIS C ANTIBODY (test c ode = 4675) NON-REACTIVE Topher MichelVARICELLA ZOSTER [id number] 00:00:00* Test Item Value Reference Range Interpretation Comme aixa VARICELLA ZOSTER IgG (test c ode = 29841) 1182 INDEX Topher MichelDRUG ABUSE SCREEN 10 REFLEX [id number] 00:00:00* Test Item Value Reference Range Interpretation Comme nts AMPHETAMINES (test code = 3201) NEGATIVE BARBITURATES (test code = 3202) NEGATIVE BENZODIAZEPINES (test code = 3203) NEGATIVE CANNABINOIDS (test code = 3204) NEGATIVE COCAINE METABOLITE (test cod e = 3205) NEGATIVE OPIATES (test code = 3209) NEGATIVE OXYCODONE (test code = 54518) NEGATIVE PHENCYCLIDINE (test code = 3210) NEGATIVE METHADONE (test code = 3207) NEGATIVE BUPRENORPHINE (test code = 27151) NEGATIVE SOURCE (test code = 001210) URINE Topher MichelHCG, [id number] 00:00:00* Test Item Value Reference Range Interpretation Comme aixa HCG, QUANTITATIVE (test code = 2506) 32282 MIU/ML Topher [id number] 00:00:00* Test Item Value Reference Range Interpretation Comme nts RPR RESULT (test code = 3501) NON-REACTIVE RPR TITER (test code = 3500) NOT INDIC. TITER Topher MichelOBSTETRIC PANEL + [id number] 00:00:00* Test Item Value Reference Range Interpretation [...] K/UL ABS NUCLEATED RBCS (test code = 03933) 0.00 K/UL BLOOD TYPE AND RH (test code = 3901) B POSITIVE ANTIBODY SCREEN (test code = 3902) NEGATIVE RUBELLA ANTIBODY SCREEN (test code = 4600) 177 IU/ML RUBELLA IgG INTERP (test code = 52206) REACTIVE HEPATITIS B SURF AG (test code = 2739) NON-REACTIVE RPR (test code = 77807) NON-REACTIVE RPR TITER (test code = 3500) NOT INDIC. TITER HIV 1/2 4TH GEN, RFLX CONF (test code = 3514) NON-REACTIVE Topher Aguillon AustinHEPATITIS C [id number] 00:00:00* Test Item Value Reference Range Interpretation Comme nts HEPATITIS C ANTIBODY (test c ode = 4675) NON-REACTIVE Topher MichelPAP TEST, THINPREP, [id number] 00:00:00* Test Item Value Reference Range Interpretation Comme nts SOURCE: (test code = 8001) Cervical/Endocervical SLIDES: (test code = 8011) 2 LMP: (test code = 8021) 05/27/2023 SPECIMEN ADEQUACY: (test code = 21421) (NOTE) INTERPRETATION: (test code = 02272) NILM/NO EPITH. ABNORMALITY;SEE BELOW OTHER COMMENTS: (test code = 8081) (NOTE) ANIMAL TECHNICIAN: (test code = 8101) Jennifer Martell, CT(ASCP) QC TECHNOLOGIST: (test code = 8111) Johnnie Vergara,SCT(ASCP)IAC LOCATION: (test code = 65036) (NOTE) CPT: (test code = 8140) (NOTE) Topher MichelVARICELLA ZOSTER [id number] 00:00:00* Test Item Value Reference Range Interpretation Comme aixa VARICELLA ZOSTER IgG (test c ode = 98943) 1182 INDEX Topher MichelDRUG ABUSE SCREEN 10 REFLEX [id number] 00:00:00* Test Item Value Reference Range Interpretation Comme nts AMPHETAMINES (test code = 3201) NEGATIVE BARBITURATES (test code = 3202) NEGATIVE BENZODIAZEPINES (test code = 3203) NEGATIVE CANNABINOIDS (test code = 3204) NEGATIVE COCAINE METABOLITE (test cod e = 3205) NEGATIVE OPIATES (test code = 3209) NEGATIVE OXYCODONE (test code = 38684) NEGATIVE PHENCYCLIDINE (test code = 3210) NEGATIVE METHADONE (test code = 3207) NEGATIVE BUPRENORPHINE (test code = 62246) NEGATIVE SOURCE (test code = 396395) URINE Topher MichelHCG, [id number] 00:00:00* Test Item Value Reference Range Interpretation Comme aixa HCG, QUANTITATIVE (test code = 2506) 55003 MIU/ML Topher [id number] 00:00:00* Test Item Value Reference Range Interpretation Comme nts RPR RESULT (test code = 3501) NON-REACTIVE RPR TITER (test code = 3500) NOT INDIC. TITER Topher MichelOBSTETRIC PANEL + [id number] 00:00:00* Test Item Value Reference Range Interpretation [...] K/UL ABS NUCLEATED RBCS (test code = 85351) 0.00 K/UL BLOOD TYPE AND RH (test code = 3901) B POSITIVE ANTIBODY SCREEN (test code = 3902) NEGATIVE RUBELLA ANTIBODY SCREEN (test code = 4600) 177 IU/ML RUBELLA IgG INTERP (test code = 24976) REACTIVE HEPATITIS B SURF AG (test code = 2739) NON-REACTIVE RPR (test code = 41757) NON-REACTIVE RPR TITER (test code = 3500) NOT INDIC. TITER HIV 1/2 4TH GEN, RFLX CONF (test code = 3514) NON-REACTIVE Topher F AustinHEPATITIS C [id number] 00:00:00* Test Item Value Reference Range Interpretation Comme nts HEPATITIS C ANTIBODY (test c ode = 4675) NON-REACTIVE Topher Aguillon AustinPAP TEST, THINPREP, [id number] 00:00:00* Test Item Value Reference Range Interpretation Comme nts SOURCE: (test code = 8001) Cervical/Endocervical SLIDES: (test code = 8011) 2 LMP: (test code = 8021) 05/27/2023 SPECIMEN ADEQUACY: (test code = 17232) (NOTE) INTERPRETATION: (test code = 97762) NILM/NO EPITH. ABNORMALITY;SEE BELOW OTHER COMMENTS: (test code = 8081) (NOTE) ANIMAL TECHNICIAN: (test code = 8101) Jennifer Martell, CT(ASCP) QC TECHNOLOGIST: (test code = 8111) Johnnie Vergara,SCT(ASCP)IAC LOCATION: (test code = 70992) (NOTE) CPT: (test code = 8140) (NOTE) Topher MichelVARICELLA ZOSTER [id number] 00:00:00* Test Item Value Reference Range Interpretation Comme nts VARICELLA ZOSTER IgG (test c ode = 01903) 1182 INDEX Topher MichelDRUG ABUSE SCREEN 10 REFLEX [id number] 00:00:00* Test Item Value Reference Range Interpretation Comme nts AMPHETAMINES (test code = 3201) NEGATIVE BARBITURATES (test code = 3202) NEGATIVE BENZODIAZEPINES (test code = 3203) NEGATIVE CANNABINOIDS (test code = 3204) NEGATIVE COCAINE METABOLITE (test cod e = 3205) NEGATIVE OPIATES (test code = 3209) NEGATIVE OXYCODONE (test code = 15323) NEGATIVE PHENCYCLIDINE (test code = 3210) NEGATIVE METHADONE (test code = 3207) NEGATIVE BUPRENORPHINE (test code = 93745) NEGATIVE SOURCE (test code = 164354) URINE Topher MichelHCG, [id number] 00:00:00* Test Item Value Reference Range Interpretation Comme nts HCG, QUANTITATIVE (test code = 2506) 32188 MIU/ML Topher [id number] 00:00:00* Test Item Value Reference Range Interpretation Comme nts RPR RESULT (test code = 3501) NON-REACTIVE RPR TITER (test code = 3500) NOT INDIC. TITER Topher MichelOBSTETRIC PANEL + [id number] 00:00:00* Test Item Value Reference Range Interpretation [...] K/UL ABS NUCLEATED RBCS (test code = 14459) 0.00 K/UL BLOOD TYPE AND RH (test code = 3901) B POSITIVE ANTIBODY SCREEN (test code = 3902) NEGATIVE RUBELLA ANTIBODY SCREEN (test code = 4600) 177 IU/ML RUBELLA IgG INTERP (test code = 01599) REACTIVE HEPATITIS B SURF AG (test code = 2739) NON-REACTIVE RPR (test code = 66821) NON-REACTIVE RPR TITER (test code = 3500) NOT INDIC. TITER HIV 1/2 4TH GEN, RFLX CONF (test code = 3514) NON-REACTIVE Topher Aguillon AnandPAP TEST, THINPREP, [id number] 00:00:00* Test Item Value Reference Range Interpretation Comme nts SOURCE: (test code = 8001) Cervical/Endocervical SLIDES: (test code = 8011) 2 LMP: (test code = 8021) 05/27/2023 SPECIMEN ADEQUACY: (test code = 35054) (NOTE) INTERPRETATION: (test code = 09537) NILM/NO EPITH. ABNORMALITY;SEE BELOW OTHER COMMENTS: (test code = 8081) (NOTE) ANIMAL TECHNICIAN: (test code = 8101) Jennifer Martell, CT(ASCP) QC TECHNOLOGIST: (test code = 8111) Johnnie Vergara,SCT(ASCP)IAC LOCATION: (test code = 82758) (NOTE) CPT: (test code = 8140) (NOTE) Topher Pal AnandHEPATITIS C [id number] 00:00:00* Test Item Value Reference Range Interpretation Comme nts HEPATITIS C ANTIBODY (test c ode = 4675) NON-REACTIVE Topher Aguillon AanndVARICELLA ZOSTER [id number] 00:00:00* Test Item Value Reference Range Interpretation Comme nts VARICELLA ZOSTER IgG (test c ode = 13082) 1182 INDEX Topher MichelDRUG ABUSE SCREEN 10 REFLEX [id number] 00:00:00* Test Item Value Reference Range Interpretation Comme nts AMPHETAMINES (test code = 3201) NEGATIVE BARBITURATES (test code = 3202) NEGATIVE BENZODIAZEPINES (test code = 3203) NEGATIVE CANNABINOIDS (test code = 3204) NEGATIVE COCAINE METABOLITE (test cod e = 3205) NEGATIVE OPIATES (test code = 3209) NEGATIVE OXYCODONE (test code = 99896) NEGATIVE PHENCYCLIDINE (test code = 3210) NEGATIVE METHADONE (test code = 3207) NEGATIVE BUPRENORPHINE (test code = 72237) NEGATIVE SOURCE (test code = 171162) URINE Topher MichelHCG, [id number] 00:00:00* Test Item Value Reference Range Interpretation Comme nts HCG, QUANTITATIVE (test code = 2506) 37723 MIU/ML Topher [id number] 00:00:00* Test Item Value Reference Range Interpretation Comme nts RPR RESULT (test code = 3501) NON-REACTIVE RPR TITER (test code = 3500) NOT INDIC. TITER Topher MichelHPV HIGH RISK WITH GENOTYPE, [id number] 15:53:01* Test Item Value Reference Range Interpretation Comme nts HPV HIGH RISK INTERP (test code = 43899) POSITIVE NEGATIVE A HPV 16 (test code = 09994) NEGATIVE HPV 18 (test code = 05844) NEGATIVE HPV, HR, OTHER GENOTYPES (test code = 49887) POSITIVE A Testing methodol ogy is real-time [...] TESTING PERFORMED AT [facility] [address] [place] [address] GEOMAGNETICIAN: SUSAN YANEZ M.D. [facility] NUMBER [id number] [facility] [place]. [id number] CULTURE, [id number] 12:58:34SPECIMEN NUMBER: [id number] CULTURE, URINE SPECIMEN NUMBER: [id number] SPECIMEN COMMENT: URINE SOURCE: URINE REPORT STATUS: FINAL ISOLATE NUMBER 1: ORGANISM: 07/30/2023 >100,000 CFU/ML GRAM NEGATIVE BACILLI IDENTIFICATION: 07/31/2023 ESCHERICHIA COLI E. COLI AMOXICILLIN/CA SENSITIVE <=8/4AMPICILLIN RESISTANT >16CEFAZOLIN SENSITIVE <=2CEFTRIAXONE SENSITIVE <=1CIPROFLOXACIN SENSITIVE <=1LEVOFLOXACIN SENSITIVE <=2NITROFURANTOIN SENSITIVE <=32PIP/TAZOBAC SENSITIVE <=16TETRACYCLINE SENSITIVE <=4TOBRAMYCIN SENSITIVE <=4TRIMETH/SULFA SENSITIVE <=2/38 NOTE: NUMBERS DISPLAYED REPRESENT MINIMUM INHIBITORY CONCENTRATION (ALMITA) WHICH IS EXPRESSED IN MCG/ML.CT/NG, NAAT, [id number] 12:21:07* Test Item Value Reference Range Interpretation Comme nts CHLAMYDIA, NAAT, THINPREP (test code = 55921) POSITIVE NEGATIVE A Testing is perfo rmed with the [employer] 6800/8800 systems usingreal-time Polymerase Chain Reaction (PCR) method. GONORRHEA, NAAT, THINPREP (test code = 00382) NEGATIVE NEGATIVE A negative resul t does not exclude low level infection, specimensampling error, or collection error. Testing is performed with the [employer] 6800/8800 systems usingreal-time Polymerase Chain Reaction (PCR) method. GC AND CHLAMYDIA AMPLIFIED, [id number] 00:00:00* Test Item Value Reference Range Interpretation Comme nts CHLAMYDIA, NAAT, THINPREP (t est code = 63909) POSITIVE GONORRHEA, NAAT, THINPREP (t est code = 70931) NEGATIVE Topher Aguillon AustinHPV HIGH RISK WITH GENOTYPE, [id number] 00:00:00* Test Item Value Reference Range Interpretation Comme nts HPV HIGH RISK INTERP (test c ode = 81638) POSITIVE HPV 16 (test code = 55765) NEGATIVE HPV 18 (test code = 18930) NEGATIVE HPV, HR, OTHER GENOTYPES (te st code = 05913) POSITIVE Topher Aguillon AustinGC AND CHLAMYDIA AMPLIFIED, [id number] 00:00:00* Test Item Value Reference Range Interpretation Comme nts CHLAMYDIA, NAAT, THINPREP (t est code = 26953) POSITIVE GONORRHEA, NAAT, THINPREP (t est code = 63881) NEGATIVE Topher MichelCULTURE, [id number] 00:00:00* Test Item Value Reference Range Interpretation Comme nts CULTURE, URINE (test code = 71501) SPECIMEN NUMBER: [id number] Topher Aguillon AustinHPV HIGH RISK WITH GENOTYPE, [id number] 00:00:00* Test Item Value Reference Range Interpretation Comme nts HPV HIGH RISK INTERP (test c ode = 88139) POSITIVE HPV 16 (test code = 33145) NEGATIVE HPV 18 (test code = 29749) NEGATIVE HPV, HR, OTHER GENOTYPES (te st code = 61226) POSITIVE Topher MichelCULTURE, [id number] 00:00:00* Test Item Value Reference Range Interpretation Comme nts CULTURE, URINE (test code = 24063) SPECIMEN NUMBER: [id number] Topher Aguillno AustinGC AND CHLAMYDIA AMPLIFIED, [id number] 00:00:00* Test Item Value Reference Range Interpretation Comme nts CHLAMYDIA, NAAT, THINPREP (t est code = 35539) POSITIVE GONORRHEA, NAAT, THINPREP (t est code = 40514) NEGATIVE Topher MichelHPV HIGH RISK WITH GENOTYPE, [id number] 00:00:00* Test Item Value Reference Range Interpretation Comme nts HPV HIGH RISK INTERP (test c ode = 49913) POSITIVE HPV 16 (test code = 30988) NEGATIVE HPV 18 (test code = 67095) NEGATIVE HPV, HR, OTHER GENOTYPES (te st code = 05396) POSITIVE Topher MichelCULTURE, [id number] 00:00:00* Test Item Value Reference Range Interpretation Comme nts CULTURE, URINE (test code = 43121) SPECIMEN NUMBER: [id number] Topher Aguillon AustinGC AND CHLAMYDIA AMPLIFIED, [id number] 00:00:00* Test Item Value Reference Range Interpretation Comme nts CHLAMYDIA, NAAT, THINPREP (t est code = 95440) POSITIVE GONORRHEA, NAAT, THINPREP (t est code = 39303) NEGATIVE Topher Aguillon AustinHPV HIGH RISK WITH GENOTYPE, [id number] 00:00:00* Test Item Value Reference Range Interpretation Comme nts HPV HIGH RISK INTERP (test c ode = 41334) POSITIVE HPV 16 (test code = 28474) NEGATIVE HPV 18 (test code = 98195) NEGATIVE HPV, HR, OTHER GENOTYPES (te st code = 52606) POSITIVE Topher MichelCULTURE, [id number] 00:00:00* Test Item Value Reference Range Interpretation Comme nts CULTURE, URINE (test code = 24564) SPECIMEN NUMBER: [id number] Topher Aguillon AustinGC AND CHLAMYDIA AMPLIFIED, [id number] 00:00:00* Test Item Value Reference Range Interpretation Comme nts CHLAMYDIA, NAAT, THINPREP (t est code = 39306) POSITIVE GONORRHEA, NAAT, THINPREP (t est code = 01929) NEGATIVE Topher Aguillon AustinHPV HIGH RISK WITH GENOTYPE, [id number] 00:00:00* Test Item Value Reference Range Interpretation Comme nts HPV HIGH RISK INTERP (test c ode = 85386) POSITIVE HPV 16 (test code = 43319) NEGATIVE HPV 18 (test code = 65262) NEGATIVE HPV, HR, OTHER GENOTYPES (te st code = 89952) POSITIVE Topher MichelCULTURE, [id number] 00:00:00* Test Item Value Reference Range Interpretation Comme nts CULTURE, URINE (test code = 32049) SPECIMEN NUMBER: [id number] Topher Aguillon AustinGC AND CHLAMYDIA AMPLIFIED, [id number] 00:00:00* Test Item Value Reference Range Interpretation Comme nts CHLAMYDIA, NAAT, THINPREP (t est code = 18948) POSITIVE GONORRHEA, NAAT, THINPREP (t est code = 80305) NEGATIVE Topher Aguillon AustinHPV HIGH RISK WITH GENOTYPE, [id number] 00:00:00* Test Item Value Reference Range Interpretation Comme nts HPV HIGH RISK INTERP (test c ode = 39728) POSITIVE HPV 16 (test code = 60662) NEGATIVE HPV 18 (test code = 07024) NEGATIVE HPV, HR, OTHER GENOTYPES (te st code = 26446) POSITIVE Topher MichelCULTURE, [id number] 00:00:00* Test Item Value Reference Range Interpretation Comme nts CULTURE, URINE (test code = 60125) SPECIMEN NUMBER: [id number] Topher Aguillon AustinGC AND CHLAMYDIA AMPLIFIED, [id number] 00:00:00* Test Item Value Reference Range Interpretation Comme nts CHLAMYDIA, NAAT, THINPREP (t est code = 18332) POSITIVE GONORRHEA, NAAT, THINPREP (t est code = 77577) NEGATIVE Topher Aguillon AustinHPV HIGH RISK WITH GENOTYPE, [id number] 00:00:00* Test Item Value Reference Range Interpretation Comme nts HPV HIGH RISK INTERP (test c ode = 47089) POSITIVE HPV 16 (test code = 08671) NEGATIVE HPV 18 (test code = 37483) NEGATIVE HPV, HR, OTHER GENOTYPES (te st code = 29301) POSITIVE Topher Aguillon AustinGC AND CHLAMYDIA AMPLIFIED, [id number] 00:00:00* Test Item Value Reference Range Interpretation Comme nts CHLAMYDIA, NAAT, THINPREP (t est code = 10358) POSITIVE GONORRHEA, NAAT, THINPREP (t est code = 19771) NEGATIVE Topher MichelCULTURE, [id number] 00:00:00* Test Item Value Reference Range Interpretation Comme nts CULTURE, URINE (test code = 77734) SPECIMEN NUMBER: [id number] Topher Aguillon AustinHPV HIGH RISK WITH GENOTYPE, [id number] 00:00:00* Test Item Value Reference Range Interpretation Comme nts HPV HIGH RISK INTERP (test c ode = 46630) POSITIVE HPV 16 (test code = 51256) NEGATIVE HPV 18 (test code = 50841) NEGATIVE HPV, HR, OTHER GENOTYPES (te st code = 81144) POSITIVE Topher Pal AustinGC AND CHLAMYDIA AMPLIFIED, [id number] 00:00:00* Test Item Value Reference Range Interpretation Comme nts CHLAMYDIA, NAAT, THINPREP (t est code = 13792) POSITIVE GONORRHEA, NAAT, THINPREP (t est code = 15882) NEGATIVE Topher MichelCULTURE, [id number] 00:00:00* Test Item Value Reference Range Interpretation Comme nts CULTURE, URINE (test code = 23494) SPECIMEN NUMBER: [id number] Topher Aguillon AustinHPV HIGH RISK WITH GENOTYPE, [id number] 00:00:00* Test Item Value Reference Range Interpretation Comme nts HPV HIGH RISK INTERP (test c ode = 36012) POSITIVE HPV 16 (test code = 23566) NEGATIVE HPV 18 (test code = 38999) NEGATIVE HPV, HR, OTHER GENOTYPES (te st code = 02757) POSITIVE Topher MichelCULTURE, [id number] 00:00:00* Test Item Value Reference Range Interpretation Comme nts CULTURE, URINE (test code = 32062) SPECIMEN NUMBER: [id number] Topher Aguillon AustinGC AND CHLAMYDIA AMPLIFIED, [id number] 00:00:00* Test Item Value Reference Range Interpretation Comme nts CHLAMYDIA, NAAT, THINPREP (t est code = 64071) POSITIVE GONORRHEA, NAAT, THINPREP (t est code = 93157) NEGATIVE Topher Aguillon AustinHPV HIGH RISK WITH GENOTYPE, [id number] 00:00:00* Test Item Value Reference Range Interpretation Comme nts HPV HIGH RISK INTERP (test c ode = 64853) POSITIVE HPV 16 (test code = 28300) NEGATIVE HPV 18 (test code = 01363) NEGATIVE HPV, HR, OTHER GENOTYPES (te st code = 12070) POSITIVE Topher MichelCULTURE, [id number] 00:00:00* Test Item Value Reference Range Interpretation Comme nts CULTURE, URINE (test code = 50014) SPECIMEN NUMBER: [id number] Topher Aguillon AustinGC AND CHLAMYDIA AMPLIFIED, [id number] 00:00:00* Test Item Value Reference Range Interpretation Comme nts CHLAMYDIA, NAAT, THINPREP (t est code = 25732) POSITIVE GONORRHEA, NAAT, THINPREP (t est code = 22243) NEGATIVE Topher Aguillon AustinHPV HIGH RISK WITH GENOTYPE, [id number] 00:00:00* Test Item Value Reference Range Interpretation Comme nts HPV HIGH RISK INTERP (test c ode = 36967) POSITIVE HPV 16 (test code = 96717) NEGATIVE HPV 18 (test code = 32239) NEGATIVE HPV, HR, OTHER GENOTYPES (te st code = 30844) POSITIVE Topher Aguillon AustinGC AND CHLAMYDIA AMPLIFIED, [id number] 00:00:00* Test Item Value Reference Range Interpretation Comme nts CHLAMYDIA, NAAT, THINPREP (t est code = 65720) POSITIVE GONORRHEA, NAAT, THINPREP (t est code = 69435) NEGATIVE Topher MichelCULTURE, [id number] 00:00:00* Test Item Value Reference Range Interpretation Comme nts CULTURE, URINE (test code = 20875) SPECIMEN NUMBER: [id number] Topher Aguillon AustinHPV HIGH RISK WITH GENOTYPE, [id number] 00:00:00* Test Item Value Reference Range Interpretation Comme nts HPV HIGH RISK INTERP (test c ode = 83106) POSITIVE HPV 16 (test code = 45385) NEGATIVE HPV 18 (test code = 46485) NEGATIVE HPV, HR, OTHER GENOTYPES (te st code = 87357) POSITIVE Topher MichelCULTURE, [id number] 00:00:00* Test Item Value Reference Range Interpretation Comme nts CULTURE, URINE (test code = 37142) SPECIMEN NUMBER: [id number] Topher Aguillon AustinGC AND CHLAMYDIA AMPLIFIED, [id number] 00:00:00* Test Item Value Reference Range Interpretation Comme nts CHLAMYDIA, NAAT, THINPREP (t est code = 03889) POSITIVE GONORRHEA, NAAT, THINPREP (t est code = 57545) NEGATIVE Topher MichelHPV HIGH RISK WITH GENOTYPE, [id number] 00:00:00* Test Item Value Reference Range Interpretation Comme nts HPV HIGH RISK INTERP (test c ode = 65247) POSITIVE HPV 16 (test code = 83583) NEGATIVE HPV 18 (test code = 31166) NEGATIVE HPV, HR, OTHER GENOTYPES (te st code = 50194) POSITIVE Topher MichelCULTURE, [id number] 00:00:00* Test Item Value Reference Range Interpretation Comme nts CULTURE, URINE (test code = 98792) SPECIMEN NUMBER: [id number] Topher Aguillon AustinGC AND CHLAMYDIA AMPLIFIED, [id number] 00:00:00* Test Item Value Reference Range Interpretation Comme nts CHLAMYDIA, NAAT, THINPREP (t est code = 39408) POSITIVE GONORRHEA, NAAT, THINPREP (t est code = 87427) NEGATIVE Topher MichelCULTURE, [id number] 00:00:00* Test Item Value Reference Range Interpretation Comme nts CULTURE, URINE (test code = 28950) SPECIMEN NUMBER: [id number] Topher Aguillon AustinHPV HIGH RISK WITH GENOTYPE, [id number] 00:00:00* Test Item Value Reference Range Interpretation Comme nts HPV HIGH RISK INTERP (test c ode = 33090) POSITIVE HPV 16 (test code = 19560) NEGATIVE HPV 18 (test code = 21252) NEGATIVE HPV, HR, OTHER GENOTYPES (te st code = 43445) POSITIVE Topher Aguillon AustinGC AND CHLAMYDIA AMPLIFIED, [id number] 00:00:00* Test Item Value Reference Range Interpretation Comme nts CHLAMYDIA, NAAT, THINPREP (t est code = 61118) POSITIVE GONORRHEA, NAAT, THINPREP (t est code = 80088) NEGATIVE Topher Aguillon AustinHPV HIGH RISK WITH GENOTYPE, [id number] 00:00:00* Test Item Value Reference Range Interpretation Comme nts HPV HIGH RISK INTERP (test c ode = 50021) POSITIVE HPV 16 (test code = 34348) NEGATIVE HPV 18 (test code = 20426) NEGATIVE HPV, HR, OTHER GENOTYPES (te st code = 37165) POSITIVE Topher MichelCULTURE, [id number] 00:00:00* Test Item Value Reference Range Interpretation Comme nts CULTURE, URINE (test code = 92394) SPECIMEN NUMBER: [id number] Topher Aguillon AustinGC AND CHLAMYDIA AMPLIFIED, [id number] 00:00:00* Test Item Value Reference Range Interpretation Comme nts CHLAMYDIA, NAAT, THINPREP (t est code = 89880) POSITIVE GONORRHEA, NAAT, THINPREP (t est code = 38718) NEGATIVE Topher Aguillon AustinHPV HIGH RISK WITH GENOTYPE, [id number] 00:00:00* Test Item Value Reference Range Interpretation Comme nts HPV HIGH RISK INTERP (test c ode = 30936) POSITIVE HPV 16 (test code = 68193) NEGATIVE HPV 18 (test code = 98084) NEGATIVE HPV, HR, OTHER GENOTYPES (te st code = 99704) POSITIVE Topher MichelCULTURE, [id number] 00:00:00* Test Item Value Reference Range Interpretation Comme nts CULTURE, URINE (test code = 45659) SPECIMEN NUMBER: [id number] Topher Aguillon AustinGC AND CHLAMYDIA AMPLIFIED, [id number] 00:00:00* Test Item Value Reference Range Interpretation Comme nts CHLAMYDIA, NAAT, THINPREP (t est code = 10769) POSITIVE GONORRHEA, NAAT, THINPREP (t est code = 80384) NEGATIVE Topher Aguillon AustinHPV HIGH RISK WITH GENOTYPE, [id number] 00:00:00* Test Item Value Reference Range Interpretation Comme nts HPV HIGH RISK INTERP (test c ode = 53919) POSITIVE HPV 16 (test code = 66778) NEGATIVE HPV 18 (test code = 89627) NEGATIVE HPV, HR, OTHER GENOTYPES (te st code = 68272) POSITIVE Topher MichelGC AND CHLAMYDIA AMPLIFIED, [id number] 00:00:00* Test Item Value Reference Range Interpretation Comme nts CHLAMYDIA, NAAT, THINPREP (t est code = 40255) POSITIVE GONORRHEA, NAAT, THINPREP (t est code = 54221) NEGATIVE Topher MichelCULTURE, [id number] 00:00:00* Test Item Value Reference Range Interpretation Comme nts CULTURE, URINE (test code = 92322) SPECIMEN NUMBER: [id number] Topher MichelHPV HIGH RISK WITH GENOTYPE, [id number] 00:00:00* Test Item Value Reference Range Interpretation Comme nts HPV HIGH RISK INTERP (test c ode = 90278) POSITIVE HPV 16 (test code = 28825) NEGATIVE HPV 18 (test code = 89023) NEGATIVE HPV, HR, OTHER GENOTYPES (te st code = 27995) POSITIVE Topher MichelCULTURE, [id number] 00:00:00* Test Item Value Reference Range Interpretation Comme nts CULTURE, URINE (test code = 98241) SPECIMEN NUMBER: [id number] Topher Aguillon AustinVAGINAL PATHOGENS DNA [id number] 10:31:23* Test Item Value Reference Range Interpretation Comme nts ALTAF SPECIES (test code = 44721) NEGATIVE NEGATIVE G. VAGINALIS (test code = 69591) POSITIVE NEGATIVE A T. VAGINALIS (test code = 54990) NEGATIVE NEGATIVE Note: The BD [facility] VPIII Microbial Identification Testis a DNA probe test intended for use in the detectionand identification of Altaf species, Gardnerellavaginalis and Trichomonas vaginalis nucleic acid. UNLESS OTHERWISE INDICATED, ALL TESTING PERFORMED AT [facility] [address] [place] [address] GEOMAGNETICIAN: SUSAN YANEZ M.D. [place] NUMBER [id number] [facility] [place] [id number] VAGINAL PATHOGENS DNA PANEL [ADDED]2023-07-30 00:00:00* Test Item Value Reference Range Interpretation Comme nts ALTAF SPECIES (test code = 95752) NEGATIVE G. VAGINALIS (test code = 14512) POSITIVE T. VAGINALIS (test code = 93727) NEGATIVE Topher F AustinVAGINAL PATHOGENS DNA PANEL [ADDED]2023-07-30 00:00:00* Test Item Value Reference Range Interpretation Comme nts ALTAF SPECIES (test code = 30505) NEGATIVE G. VAGINALIS (test code = 67153) POSITIVE T. VAGINALIS (test code = 53068) NEGATIVE Topher F AustinVAGINAL PATHOGENS DNA PANEL [ADDED]2023-07-30 00:00:00* Test Item Value Reference Range Interpretation Comme nts ALTAF SPECIES (test code = 74100) NEGATIVE G. VAGINALIS (test code = 07735) POSITIVE T. VAGINALIS (test code = 67091) NEGATIVE Topher F AustinVAGINAL PATHOGENS DNA PANEL [ADDED]2023-07-30 00:00:00* Test Item Value Reference Range Interpretation Comme nts ALTAF SPECIES (test code = 44594) NEGATIVE G. VAGINALIS (test code = 91913) POSITIVE T. VAGINALIS (test code = 11188) NEGATIVE Topher F AustinVAGINAL PATHOGENS DNA PANEL [ADDED]2023-07-30 00:00:00* Test Item Value Reference Range Interpretation Comme nts ALTAF SPECIES (test code = 76627) NEGATIVE G. VAGINALIS (test code = 64630) POSITIVE T. VAGINALIS (test code = 59581) NEGATIVE Topher F AustinVAGINAL PATHOGENS DNA PANEL [ADDED]2023-07-30 00:00:00* Test Item Value Reference Range Interpretation Comme nts ALTAF SPECIES (test code = 56079) NEGATIVE G. VAGINALIS (test code = 21473) POSITIVE T. VAGINALIS (test code = 50090) NEGATIVE Topher F AustinVAGINAL PATHOGENS DNA PANEL [ADDED]2023-07-30 00:00:00* Test Item Value Reference Range Interpretation Comme nts ALTAF SPECIES (test code = 07067) NEGATIVE G. VAGINALIS (test code = 90095) POSITIVE T. VAGINALIS (test code = 58260) NEGATIVE Topher F AustinVAGINAL PATHOGENS DNA PANEL [ADDED]2023-07-30 00:00:00* Test Item Value Reference Range Interpretation Comme nts ALTAF SPECIES (test code = 80801) NEGATIVE G. VAGINALIS (test code = 72035) POSITIVE T. VAGINALIS (test code = 87461) NEGATIVE Topher F AustinVAGINAL PATHOGENS DNA PANEL [ADDED]2023-07-30 00:00:00* Test Item Value Reference Range Interpretation Comme nts ALTAF SPECIES (test code = 62260) NEGATIVE G. VAGINALIS (test code = 47459) POSITIVE T. VAGINALIS (test code = 76613) NEGATIVE Topher F AustinVAGINAL PATHOGENS DNA PANEL [ADDED]2023-07-30 00:00:00* Test Item Value Reference Range Interpretation Comme nts ALTAF SPECIES (test code = 64263) NEGATIVE G. VAGINALIS (test code = 43995) POSITIVE T. VAGINALIS (test code = 56611) NEGATIVE Topher F AustinVAGINAL PATHOGENS DNA PANEL [ADDED]2023-07-30 00:00:00* Test Item Value Reference Range Interpretation Comme nts ALTAF SPECIES (test code = 46991) NEGATIVE G. VAGINALIS (test code = 32820) POSITIVE T. VAGINALIS (test code = 05380) NEGATIVE Topher F AustinVAGINAL PATHOGENS DNA PANEL [ADDED]2023-07-30 00:00:00* Test Item Value Reference Range Interpretation Comme nts ALTAF SPECIES (test code = 38572) NEGATIVE G. VAGINALIS (test code = 75746) POSITIVE T. VAGINALIS (test code = 98820) NEGATIVE Topher F AustinVAGINAL PATHOGENS DNA PANEL [ADDED]2023-07-30 00:00:00* Test Item Value Reference Range Interpretation Comme nts ALTAF SPECIES (test code = 14432) NEGATIVE G. VAGINALIS (test code = 17325) POSITIVE T. VAGINALIS (test code = 57248) NEGATIVE Topher F AustinVAGINAL PATHOGENS DNA PANEL [ADDED]2023-07-30 00:00:00* Test Item Value Reference Range Interpretation Comme nts ALTAF SPECIES (test code = 75667) NEGATIVE G. VAGINALIS (test code = 27174) POSITIVE T. VAGINALIS (test code = 01549) NEGATIVE Topher Aguillon AustinVAGINAL PATHOGENS DNA PANEL [ADDED]2023-07-30 00:00:00* Test Item Value Reference Range Interpretation Comme nts ALTAF SPECIES (test code = 68312) NEGATIVE G. VAGINALIS (test code = 38300) POSITIVE T. VAGINALIS (test code = 37649) NEGATIVE Topher Aguillon AustinVAGINAL PATHOGENS DNA PANEL [ADDED]2023-07-30 00:00:00* Test Item Value Reference Range Interpretation Comme nts ALTAF SPECIES (test code = 36997) NEGATIVE G. VAGINALIS (test code = 42403) POSITIVE T. VAGINALIS (test code = 72965) NEGATIVE Topher Aguillon AustinVAGINAL PATHOGENS DNA PANEL [ADDED]2023-07-30 00:00:00* Test Item Value Reference Range Interpretation Comme nts ALTAF SPECIES (test code = 42576) NEGATIVE G. VAGINALIS (test code = 05693) POSITIVE T. VAGINALIS (test code = 72046) NEGATIVE Topher Aguillon AustinVAGINAL PATHOGENS DNA PANEL [ADDED]2023-07-30 00:00:00* Test Item Value Reference Range Interpretation Comme nts ALTAF SPECIES (test code = 22683) NEGATIVE G. VAGINALIS (test code = 43220) POSITIVE T. VAGINALIS (test code = 09274) NEGATIVE Topher Aguillon Anand History and Physical Notes Date/Time Note Provider Source 2025-05-24 17:27:00 TRIAGE/ADMISSION HISTORY & PHYSICAL TRIAGE/ADMISSION DATE: 05/24/2025 5:27 PM OB ATTENDING IN TRIAGE AND/OR ON ADMISSION: LENNY HER IDENTIFYING DATA Franky Valero is 24 year old, Black or , 39w0d, female with NORTH. Patient's last menstrual period was 08/15/2024 (approximate). : 2000 Primary [facility] Care Clinic: [facility] CHIEF COMPLAINT IOL HISTORY OF PRESENT ILLNESS Franky Valero is a 24 year old at 39w0d who presents for scheduled IOL. Patient denies vaginal bleeding, denies leakage of fluid, denies contractions. Patient denies headache, denies nausea/vomiting, denies RUQ pain, denies visual abnormalities. Endorses normal movement. PAST OBSTETRIC HISTORY OB History Para Term AB Living 3 2 0 SAB IAB Ectopic Multiple Live Births 1 1 # Outcome Date GA Lbr Talha/2nd Weight Sex Type Anes PTL Lv 3 Current 2 SAB 2022 14w0d 1 IAB 2021 PAST MEDICAL HISTORY Patient Active Problem List Diagnosis Date Noted 39 weeks gestation of 05/24/2025 Anemia of mother in , antepartum 05/05/2025 Anxiety and depression affecting in third trimester, antepartum 03/19/2025 Circumvallate placenta 01/13/2025 Supervision of high-risk 09/23/2024 History of miscarriage 09/23/2024 with history of 09/23/2024 Nausea and vomiting in 09/23/2024 Herpes infection in 09/23/2024 Operations: No past surgical history on file. Prior surgeries at outside hospitals: none Past Medical History: Diagnosis Date Anxiety self controlled Depression self controlled Genital herpes 10/2023 Pap smear abnormality of cervix CURRENT HEALTH STATUS Medications: Current Facility-Administered Medications Medication Dose Route Frequency Last Rate Last Admin [id number] IV infusion 1,000 mL 1,000 mL IV Infusion TITRATE lactated ringers IV infusion 250 mL 250 mL IV Infusion PRN - SEE INSTRUCTIONS lidocaine 1% (PF) (XYLOCAINE) injection 0.3 mL 0.3 mL Infiltration PRN - SEE INSTRUCTIONS lidocaine 1% (XYLOCAINE) 10 mg/mL (1 %) injection 50 mL 50 mL Infiltration PRN - SEE INSTRUCTIONS [START ON 05/25/2025] QUEtiapine (SEROQUEL) tablet 25 mg 25 mg Oral QHS [START ON 05/25/2025] SERTraline (ZOLOFT) tablet 50 mg 50 mg Oral DAILY sodium citrate-citric acid (BICITRA) 500-334 mg/5 mL solution 30 mL 30 mL Oral PRE-PROCEDURE ONCE Allergies and drug reactions: Patient has no known allergies. HOME MEDICATIONS Medications Prior to Admission Medication Sig Dispense Refill Last Dose/Taking Iron Fum & P-FA-Vit B & C No.9 (INTEGRA PLUS) 125 mg iron- 1 mg Cap Take 1 tablet by mouth in the morning. 30 capsule 4 acyclovir 400 mg tablet Take 1 tablet by mouth in the morning and 1 tablet at noon and 1 tablet in the evening. 90 tablet 1 QUEtiapine 25 mg tablet TAKE 1 TABLET BY MOUTH NIGHTLY SERTraline (ZOLOFT) 50 mg tablet Take 1 tablet by mouth in the morning. 30 tablet 2 PNV 67-iron ps-folate no.1-dha (VITAFOL ULTRA) 29 mg iron- 1 mg-200 mg Cap Take 1 Each by mouth in the morning. 30 capsule 8 proMETHazine 25 mg tablet Take 1 tablet by mouth every 6 (six) hours as needed for Nausea and Vomiting (N/V). 30 tablet 0 SOCIAL HISTORY Tobacco History: Social History Tobacco Use Smoking Status Never Passive exposure: Never Smokeless Tobacco Never Drug History: Social History Substance and Sexual Activity Drug Use Never Alcohol History: Social History Substance and Sexual Activity Alcohol Use Not Currently FAMILY HISTORY Family History Problem Relation Age of Onset Diabetes Mother Hypertension Maternal Grandmother Diabetes Maternal Grandfather REVIEW OF SYSTEMS General: negative Constitutional: negative Eyes: negative ENT/Mouth: negative Cardiovascular: negative Respiratory: negative Gastrointestinal:negative Genitourinary: negative Musculoskeletal: negative Skin/breast: negative Neurological: negative Psychiatric: negative Endocrine: negative Hemat/Lymph: negative Allergic/Immuno:none VITAL SIGNS BP: (135-139)/(77-88) MAP (mmHg): [92-101] Temp: [37 ?C (98.6 ?F)-37.2 ?C (98.9 ?F)] Temp source: Axillary (05/24 1900) Pulse: [84-107] Resp: [18] SpO2: [99 %-100 %] Height: [167.6 cm (5' 5.98")] Weight: [69.4 kg (153 lb 1.6 oz)] BMI (calculated): [24.72] PHYSICAL EXAMINATIONS General: patient alert and in no acute distress HEENT: symmetric, negative for masses Lungs: unlabored breathing Breast: deferred Cardiology: peripheral pulses intact and regular Abdomen: soft, non-tender, non-distended, no liver, spleen or abnormal masses palpated and Gravid Extremities: no clubbing, cyanosis, or edema Neuro: patient moving all extremities, no facial droop : SVE: 2/-2 REVIEW OF LABORATORY, PATHOLOGY, AND RADIOLOGY DATA Lab results: CBC BMP PT/INR WBC (10*3/?L) Date Value 05/24/2025 9.92 NA (mmol/L) Date Value 02/06/2025 135 No results found for: "PT" RBC (10*6/?L) Date Value 05/24/2025 4.97 K (mmol/L) Date Value 02/06/2025 3.2 (L) No results found for: "PTINR" PLT (10*3/?L) Date Value 05/24/2025 354 CALCIUM (mg/dL) Date Value 02/06/2025 8.9 HGB (g/dL) Date Value 05/24/2025 10.9 (L) CL (mmol/L) Date Value 02/06/2025 106 aPTT HCT (%) Date Value 05/24/2025 34.0 (L) BUN (mg/dL) Date Value 02/06/2025 8 No results found for: "APTTPAT" CREATININE (mg/dL) Date Value 02/06/2025 0.53 GLUCOSE (mg/dL) Date Value 02/06/2025 81 CO2 TOTAL (mmol/L) Date Value 02/06/2025 20 (L) Type & Screen Rubella Varicella ABO & RH (no units) Date Value 05/24/2025 B POSITIVE Rubella screen IgG (no units) Date Value 09/23/2024 Positive No components found for: "VZIGG" No results found for: "TSABINT" Hep B HIV Syphilis No results found for: "HBS" No results found for: "HIV" Syphilis IgG/IgM (no units) Date Value 03/16/2025 Nonreactive HBsAg (no units) Date Value 05/24/2025 Negative HBsAg Semi-Quantitative (no units) Date Value 05/24/2025 0.08 No results found for: "HIVMULTIPLEX" Group B Strep Chlamydia Group B Streptococcus by PCR (no units) Date Value 05/04/2025 Negative C. trachomatis Nucleic Acid (no units) Date Value 05/04/2025 Negative GTT No results found for: "GLUF" GLUC 1 HR (mg/dL) Date Value 03/03/2025 122 No components found for: "GLU2H" No results found for: "GLU3H" PASD Screening Prior ? : No Prior Uterine Surgery?: No Placenta low lying/previa in current ? : No Ultrasound suspicion of PASD in current ?: No Screening outcome: A positive screening outcome indicates a history of prior delivery or prior uterine surgery, AND the presence of either a placenta low lying/previa or ultrasound suspicion of PASD in the current . Negative screening. Present on Admission: Herpes infection in Anxiety and depression affecting in third trimester, antepartum 39 weeks gestation of History of miscarriage Nausea and vomiting in Circumvallate placenta Anemia of mother in , antepartum TRIAGE/ADMISSION ASSESSMENT AND PLAN Franky Valero is a 24 year old at 39w0d by u (5) who presents for IOL. sIOL - (-) Vaginal Bleeding, (-) Leakage of Fluid, (-) Contractions, (-) Decreased Movement - SVE: 2 / 75 % / -2 Plan: - Admit for IOL. 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 - Denies current symptoms - Not currently on suppression medication - Speculum exam: no visual lesions Anxiety - History of anxiety diagnosed this in January - Currently taking Quetiapine and Sertraline, reports compliance - Denies any SI/HI, patient reports mood is stable Circumvallate Placenta - Noted on 20w US - Not mentioned in subsequent US Anemia of - HgB: 10 on 05/04/25 - Taking Iron Plan: Iron supplement PP Antepartum course reviewed: - 1 h 122, sero positive for HSV1, Rimmune, VZVimmune, HPV not vaccinated, COVID vaccinated, B positive/IAT negative, GBS negative, Pap unknown - H/H, plt: 10 31.6, 327 on 05/04/25 - PP control plan: undecided, considering pills - [facility] Fetus: - Presentation on admission: cephalic - RT Lateral placenta - EFW: 3113 g, 54 %tile per MFM US on 05/11/25 - FHT reactive and reassuring - Normal anatomy scan Plan was discussed with OB RESIDENT: Lauren Martinez MD Cosigned by Lenny Her DO at 05/24/2025 9:56 PM CDT Associated attestation - Lenny Her DO - 05/24/2025 9:56 PM CDT Attending addendum: I was L&D faculty on 05/24/2025 and agree with H&P below. I discussed the plan of care with the residents. Lenny Her DO [facility] - [facility] Procedure Notes Date/Time Note Provider Source 2025-05-25 06:37:11 Associated Order(s): Central Neuraxial Block Central Neuraxial Block Date/Time: 05/25/2025 6:37 AM Performed by: Tejas Schaefer MD Authorized by: Jeri Cottrell MD Patient Location: OB Reason for Block: OB request, Patient request, Labor analgesia, Surgical anesthesia and Post-op pain management Staff: Anesthesiologist: Jeri Cottrell MD Resident/PUTTER IN: Tejas Schaefer MD Performed by: resident/PUTTER IN Preanesthetic Checklist: patient identified, IV checked, risks and benefits explained, monitors and equipment checked, timeout performed, pre-op evaluation, site marked and anesthesia consent Procedure: Type of Neuraxial: Epidural Epidural Description: 1st attempt Sterility Prep cap, drape, gloves, hand hygiene and mask Patient Position: sitting Prep: Betadine and patient draped Monitoring: heart rate, continuous pulse ox, heart rate / toco and NIBP Location: lumbar (1-5) Lumbar: L3-L4 Approach: midline Technique: catheter and BRITTNEY saline Guidance with: landmark technique} Epidural/Spinal [place] and/or Catheter: Epidural/Spinal Kit: Cheko Needle Type: Tuohy Needle Gauge: 17 G Needle Length: 3.5 in (8.89 cm) Needle Insertion Depth: 5 Catheter Type: multiport Catheter Size: 19 G Catheter at Skin Depth: 10 Number of Attempts: 1 Test Dose: negative and lidocaine 1.5% with epinephrine 1-to-200,000 Dose: 3 cc Catheter Securement Method: surgical tape and Tegaderm Assessment: Block Outcome: a full evaluation is pending, patient comfortable and patient tolerated procedure well Procedure Assessment: patient tolerated procedure well with no complications Notes: Patient identified; pre-procedure verification. Patient prepped and draped in standard sterile fashion using betadine x 3 Subcutaneous infiltration with 1% Lidocaine BRITTNEY at 5 cm; catheter secured at 10 cm with mastisol, tegaderm x2 and 3-inch clear tape. Aspiration test negative x 3 Test dose negative Patient tolerated procedure well with no immediate complications Epidural expectations; PCEA explained and fall precautions given. ANESTHESIOLOGY [facility] 2025-05-24 20:15:08 SARABIA BULB INSERTION PROCEDURE Franky Valero is a 24 year old female 39w0d. Insertion date and time: 05/24/25 at 2000 Indication: Mechanical cervical ripening for IOL. Cervix assessment: SVE: 2/75/-2 Consistency: moderately soft Position: median Station: -2 Total Spencer Score: 4 Sarabia catheter was inserted through cervix with sterile vaginal exam. The Sarabia balloon was inflated with 60 cc sterile saline. Sarabia bulb firmly in place inside internal os. Catheter was taped to patient's leg. Patient tolerated the procedure well. Plan is for removal and reassessment in 12 hours unless indicated earlier. Score 0 1 2 3 Dilation (cm) 0 cm 1-2 cm 3-4 cm >5 cm Effacement 0-30% 40-50% 60-70% >80% Consistency of the cervix Stiff Moderately soft Very soft Position of the cervix Posterior Median Anterior Station -3 -2 -1 to 0 +1 to +2 Ignacia Arellano MD OBSTETRICS & GYNECOLOGY [facility] Notes Date/Time Note Provider Source 2025-05-26 10:30:00 Images from the original note were not included. This note was copied from a baby's chart. Assessment (most recent) Assessment - 05/26/25 1030 General Information Visit Initial Mom's age (years) 24 years Gestational age 39.1 weeks 3 Parity 1 Living Children 1 Feeding plan Formula Financial Class Medicaid;[facility] Oral Assessment Date of 05/25/25 Time of 1238 location Mother Baby Unit asleep in crib Literature Resources Resources Understanding Mother and Baby Care;[place] channel;How do I Mix my Baby's Formula LER How to Dry up Milk Supply Education Lactogenesis;How to suppress milk supply;Risks of mastitis and signs, seek medical attention immediately;Safe formula preparation Nurse Monitoring Observation Follow up [facility] Recommended Feeding Plan Recommended feeding plan -- Mom is choosing to continue to formula feed her baby OTHER $ SERVICES Initial Gina Lee RN, BSN, IBCLC T Gina Lee RN [facility] 2025-05-26 09:52:29 Problem: Falls, Risk of Goal: Absence of falls Outcome: Progressing as expected Problem: Pain Goal: Control of pain at or below patient's documented comfort goal Outcome: Progressing as expected Goal: Reduction in pain sensation Outcome: Progressing as expected Problem: Complications of preeclampsia/eclampsia (risk or actual) Goal: Absence of seizure activity Outcome: Progressing as expected Goal: Absence of signs and symptoms of preeclampsia Outcome: Progressing as expected Problem: Discharge Planning - Goal: Adequate for discharge Outcome: Progressing as expected Goal: Mood stable Outcome: Progressing as expected Problem: Infection Risk Goal: Absence of infection Outcome: Progressing as expected Problem: Skin integrity Impaired (Risk or Actual) Goal: Wound healing Outcome: Progressing as expected Goal: Prevention of new skin breakdown Outcome: Progressing as expected [facility] 2025-05-25 16:09:48 Problem: Falls, Risk of Goal: Absence of falls Outcome: Progressing as expected Problem: Pain Goal: Control of pain at or below patient's documented comfort goal Outcome: Progressing as expected Goal: Reduction in pain sensation Outcome: Progressing as expected Problem: Complications of preeclampsia/eclampsia (risk or actual) Goal: Absence of seizure activity Outcome: Progressing as expected Goal: Absence of signs and symptoms of preeclampsia Outcome: Progressing as expected Problem: Discharge Planning - Goal: Mood stable Outcome: Progressing as expected Problem: Infection Risk Goal: Absence of infection Outcome: Progressing as expected Problem: Skin integrity Impaired (Risk or Actual) Goal: Wound healing Outcome: Progressing as expected Goal: Prevention of new skin breakdown Outcome: Progressing as expected [facility] 2025-05-25 14:04:04 Patient: Franky Valero Procedure Summary Date: 05/25/25 Room / Location: Anesthesia Start: 0600 Anesthesia Stop: 1345 Procedure: CENTRAL NEURAXIAL BLOCK Diagnosis: Scheduled Providers: Responsible Provider: Cleo Butler MD Anesthesia Type: Epidural ASA Status: 2 Anesthesia Type: Epidural Last vitals BP 134/82 (05/25/25 134) Temp Pulse 76 (05/25/25 134) Resp SpO2 96 % (05/25/251345) There were no known notable events for this encounter. Anesthesia Post Evaluation Patient participation: complete - patient participated Level of consciousness: awake and alert Pain score: 1 Pain management: satisfactory to patient Airway patency: patent Cardiovascular status: acceptable and blood pressure returned to baseline Respiratory status: acceptable Hydration status: acceptable AN-ANESTHESIOLOGY ANESTHESIOLOGIST [facility] 2025-05-25 13:00:06 VAGINAL DELIVERY NOTE Delivery Date: 05/25/2025 Delivery Time: 12:38 PM Delivery Summary Pre-delivery diagnosis: The patient was admitted to the Labor & Delivery unit for sIOL at 39 weeks. Post-delivery diagnosis: s/p Francisco-andrew Weight: 3230 g 1 Minute 5 Minute 10 Minute Totals: 8 9 Cord gases obtained: Yes Primary delivering resident: Concetta Wei MD Teaching Resident: Adiel Bradley MD OB Faculty: LOC ROY Intrapartum Anesthesia/Analgesia: Epidural Labor Complications:None Additional Complications: None Delivery Blood Loss Delivery: 05/25/25 0038 - 05/25/25 1307 Delivery Admission: 05/24/25 1719 - 05/25/25 1307 Delivery Delivery Admission Estimated blood loss (mL) Hospital Encounter 200 mL 200 mL Total 200 mL 200 mL Uterotonics: No TXA given: No Pediatrics was present at delivery: Yes DELIVERY OF ROMERO FETUS WITH CEPHALIC PRESENTATION ROUTINE VAGINAL DELIVERY Vaginal delivery of head with cephalic position, occipital anterior. As the head crowned and distended the perineum, no episiotomy was performed. A blue towel was used to protect the perineum as the head crowned and delivered. The other hand was used to exert pressure on the occiput to control the delivery of the head. The perineum was pushed with a towel-draped hand as the head and mouth was delivered over the perineum. The head was allowed to rotate externally to match the shoulder with face to maternal left. The left shoulder was anterior. Examination of neck revealed nuchal cord, which was Loose umbilical cord - reduced. The shoulder was delivered by gentle downward traction applied to head and downward traction for the delivery of anterior shoulder. This was followed by upward traction with delivery of posterior shoulder and body. After the delivery of infant, bulb suction was performed from oropharynx and nostril with removal of thin meconium. A male was delivered. Delayed cord clamping done Yes. The umbilical cord was double clamped, cut and the was handed off the field to the circulating nurse. PLACENTA Placenta was delivered spontaneously while the abdominal hand lifted the uterus cephalad and other hand keeping the umbilical cord slightly taut. Placenta delivered intact: yes FOURTH STAGE Fourth stage of labor was managed by uterine massage with abdominal hand and infusion 30 units of pitocin mixed with intravenous fluid at 300 cc/hr. OBSTETRICAL LACERATION(S): Episiotomy no Laceration type(s): bilateral labial-hemostatic, unrepaired Laceration Repair: no repair needed as lacerations were hemostatic Vaginal Counts: Initial count personnel: MANISH RANGEL Initial count verified by: BARRY Paulino Initial Count 0 5 Added Counts 0 0 Final Count 0 5 Final count personnel: MANISH RANGEL Final count verified by: BARRY MACIAS Accurate final count? Yes Concetta Wei MD Cosigned by Loc Roy MD at 05/25/2025 1:40 PM CDT Associated attestation - Loc Roy MD - 05/25/2025 1:40 PM CDT I was supervising [facility] faculty present for this procedure. I was present for all quiñones portions of the procedure. I have attached an additional note if there were special circumstances during this procedure. OBSTETRICS & GYNECOLOGY [facility] 2025-05-25 10:37:29 Intrapartum Progress Note 05/25/2025 10:37 AM Subjective: Patient has no complaints Objective: Vitals last 24 hours: Temp: [36.5 ?C (97.7 ?F)-37.2 ?C (98.9 ?F)] 36.5 ?C (97.7 ?F) Pulse: [72-107] 103 Resp: [15-20] 17 BP: (90-147)/(43-94) 118/71 Intake/Output : No intake/output data recorded. I/O last 3 completed shifts: In: 361.3 Out: - Assessment Active movement: Yes Mode: EFM Uterine Activity: Mode: [place] Contractions (number / 10 minute): 3-5 Contraction duration (seconds): 40-60 Contraction quality: Mild, Palpation Resting tone: Soft, Palpation Membrane Status Membrane status: Artificial Rupture date: 05/25/25 Rupture time: 526 Amniotic fluid color: Mec Thin Cervical Exam 7 / 90 % / -1 Assessment/Plan: Franky Valero is a 24 year old at 39w1d OB Assessment: IOL OB Plan: s/p FB Additional Comments/Detail: SVE Unchanged. IUPC Placed. Baby began to decel with thomas to the 70-80's. FSE Placed. FHR back up to baseline. Cely Loya MD [facility] 2025-05-25 06:59:20 Problem: Intrapartum process (including labor pain) Goal: Absence of or reduction of complications of labor Outcome: Progressing as expected Goal: Able to cope with pain Outcome: Progressing as expected Goal: Adequate to move to next level of care Outcome: Progressing as expected Goal: Reduction in pain sensation Outcome: Progressing as expected Problem: Falls, Risk of Goal: Absence of falls Outcome: Progressing as expected Problem: Pain Goal: Control of pain at or below patient's documented comfort goal Outcome: Progressing as expected Goal: Reduction in pain sensation Outcome: Progressing as expected Problem: Complications of preeclampsia/eclampsia (risk or actual) Goal: Absence of seizure activity Outcome: Progressing as expected Goal: Absence of signs and symptoms of preeclampsia Outcome: Progressing as expected Stephenie Chou RN [facility] 2025-05-25 05:56:59 Name/ MRN / Age / Gender: Franky Valero [id number] 24 year old female BMI: Estimated body mass index is 24.72 kg/m? as calculated from the following: Height as of this encounter: 1.676 m (5' 5.98"). Weight as of this encounter: 69.4 kg (153 lb 1.6 oz). Allergies: Patient has no known allergies. Last Vitals: BP Readings from Last 1 Encounters: 05/25/25 110/68 Pulse Readings from Last 1 Encounters: 05/25/25 97 SpO2 Readings from Last 1 Encounters: 05/25/25 100% Date of Surgery: Surgeon: * Surgery not found * Procedure: CENTRAL NEURAXIAL BLOCK OR Location: * No surgery found * Anesthesia Preop Eval (physical exam) Anesthesia Preop: Chart Review and Fnop-do-Nofd [facility] Communication: 24 year old female at 39w1d requesting central neuraxial anesthesia PONV Risk Factors: female Anesthesia History Anesthesia History Negative (-) Hx of anesthetic complications Previous Anesthetics/Airways Cardiovascular Negative Cardiac ROS Comments: BP Readings from Last 3 Encounters: 05/25/25 : 110/68 05/20/25 : 120/74 05/11/25 : 125/71 Pulmonary Negative Pulmonary ROS Neuro/Musculoskeletal Negative Neuro/Musculosketal ROS (-) Spinal Cord injury (-) Positioning limitations GI/Hepatic Negative GI/Hepatic ROS Hematology Negative Hematology ROS Comments: HGB (g/dL) Date Value 05/24/2025 10.9 (L) PLT (10*3/?L) Date Value 05/24/2025 354 Type and Screen Ordered: Yes Patient Accepts Blood Transfusion: Yes Renal Negative Renal ROS Skin Negative Skin ROS Endo/Other Negative Endo/Other ROS Comments: No results found for: "[id number]" HGB A1C Date Value Ref Range Status 09/23/2024 5.5 4.0 - 5.7 % Final Other CLINICAL DATA MANAGEMENT DIRECTOR Comments: 24 year old female at 39w1d requesting central neuraxial anesthesia sIOL - (-) Vaginal Bleeding, (-) Leakage of Fluid, (-) Contractions, (-) Decreased Movement - SVE: 2 / 75 % / -2 Plan: - Admit for IOL. 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 - Denies current symptoms - Not currently on suppression medication - Speculum exam: no visual lesions Anxiety - History of anxiety diagnosed this in January - Currently taking Quetiapine and Sertraline, reports compliance - Denies any SI/HI, patient reports mood is stable Circumvallate Placenta - Noted on 20w US - Not mentioned in subsequent US Anemia of - HgB: 10 on 05/04/25 - Taking Iron Plan: Iron supplement PP Antepartum course reviewed: - 1 h 122, sero positive for HSV1, Rimmune, VZVimmune, HPV not vaccinated, COVID vaccinated, B positive/IAT negative, GBS negative, Pap unknown - H/H, plt: 31.6, 327 on 05/04/25 - PP control plan: undecided, considering pills - [facility] Fetus: - Presentation on admission: cephalic - RT Lateral placenta - EFW: 3113 g, 54 %tile per MFM US on 05/11/25 - FHT reactive and reassuring - Normal anatomy scan Pediatric Pediatric N/A N/A Preoperative Medication Instructions Continue taking all prescribed medications except: JAZMIN inhibitors, ARBs, diuretics, all oral diabetes medications Anticoagulant Therapy: Defer to surgeons Insulin: Take 1/2 dose the night prior to surgery. Hold on DOS. Phentermine: Alert [facility] anesthesiologist SGLT2 Inhibitors: "gliflozins" to be held for 3 days prior to elective surgeries GLP1 Agonosit: stop 7 days prior to surgery MAC Cases: Continue taking JAZMIN inhibitors and ARBs ASA Classification ASA: 2 Labs: Chemistry 02/06/2025 CBC 05/24/2025 135 106 8 81 9.92 10.9 (L) 354 3.2 (L) 20 (L) 0.53 34.0 (L) eGFR: 133.5 Date: 02/06/2025 ANC: 6.83 Date: 05/24/2025 LFTs 02/06/2025 Coags AST: 22 AP: 59 Prot: 7.6 Ca: 8.9 PT: - Date: - ALT: 11 T Tacos: 0.6 Alb: 4.2 PTT: - Date: - PO4: - Date: - INR: - Date: - Cardiac Endocrine & other pBNP: - Date: - A1C: 5.5 Date: 09/23/2024 Trop I: 0.003 Date: 02/06/2025 POCT A1C: - Date: - CK: - Date: - TSH: - Date: - CKMB: - Date: - FT4: - Date: - LDL: - Date: - Lact: - Date: - Procal: - Date: - Respiratory -|-|-|-|- D-dimer: - ABG Date: - Date: - Miscellaneous Type and Screen: B POSITIVE Antibody: Negative Date: 05/24/2025 POCT : Positive Date: 09/23/2024 Current Medications: No outpatient medications have been marked as taking for the 05/24/25 encounter (Hospital Encounter). Previous Surgeries: No past surgical history on file. Anesthesia Physical Exam General no apparent distress and alert and oriented x 3 Neuro/Psych neurological Dental no notable dental hx Abdominal (+) abdomen soft, benign and gravid Airway Mallampati score:II TM distance:> 5 cm Mouth opening:normal Extremity Pulmonary Other Cardiovascular Rhythm:regular Rate: normal Anesthesia Plan ASA Status: 2 Plan discussed during pre-op evaluation: General, Epidural, Spinal and CSE Anesthetic plan on DOS: Epidural Anesthesia plan discussed with: patient or agricultural sales representative Post-Operative Analgesia: routine analgesia & antiemetics Recovery Plan: LDR Additional comments: AN-ANESTHESIOLOGY ANESTHESIOLOGIST [facility] 2025-05-24 22:21:51 Problem: Intrapartum process (including labor pain) Goal: Absence of or reduction of complications of labor Outcome: Progressing as expected Goal: Able to cope with pain Outcome: Progressing as expected Goal: Adequate to move to next level of care Outcome: Progressing as expected Goal: Reduction in pain sensation Outcome: Progressing as expected Problem: Falls, Risk of Goal: Absence of falls Outcome: Progressing as expected Fatmata Arriaga RN [facility] 2025-05-24 20:04:27 Problem: Intrapartum process (including labor pain) Goal: Absence of or reduction of complications of labor Outcome: Progressing as expected Goal: Able to cope with pain Outcome: Progressing as expected Goal: Adequate to move to next level of care Outcome: Progressing as expected Goal: Reduction in pain sensation Outcome: Progressing as expected Problem: Falls, Risk of Goal: Absence of falls Outcome: Progressing as expected Tamara Quintana RN [facility] 2025-05-24 17:51:20 Problem: Intrapartum process (including labor pain) Goal: Absence of or reduction of complications of labor Outcome: Progressing as expected Goal: Able to cope with pain Outcome: Progressing as expected Goal: Adequate to move to next level of care Outcome: Progressing as expected Goal: Reduction in pain sensation Outcome: Progressing as expected [facility] 2025-05-05 13:23:50 Patient diagnosed with anemia in by provider. Advised patient iron/vitamin C supplement has been called into her pharmacy. Educated patient on iron rich foods such as dark Green leafy vegetables, red meat, beans, peas, and iron rich cereals. Educated patient on foods high in vitamin C to assist in iron absorption such as orange juice, citrus fruits, strawberries, tomatoes, and davison peppers. Educated patient on side effects of Iron supplement such as constipation and advised to supplement with colace as needed. Patient verbalized understanding. [facility] 2025-05-05 13:23:22 Pt notified of providers recommendations. Leeann Newman RN 05/05/25 1:23 PM [facility] 2025-05-05 12:20:48 Copied from [facility] #[id number]. Topic: Customer Service - Missed Call from Provider >> May 05, 2025 12:14 PM Patient Production Line Mechanic wrote: Franky Valero is a 24 year old female returning missed call Lexii Avila [facility] 2025-05-05 11:04:15 Attempt #1 no answer, LVM to call back clinic. Vin Simmons LVN [facility] 2025-05-05 10:39:20 Please notify the patient she is anemic iron/vitamin c combo have been sent to her pharmacy on file. She should continue taking her pnv. JACIEL Leo 05/05/2025 10:41 AM [facility] 2025-05-05 08:24:34 Attempted to call patient, no answer, left vm. Marissaramon Mir LVN [facility] 2025-05-04 16:51:08 Copied from [facility] #[id number]. Topic: Clinical - Medical Advice >> May 04, 2025 4:50 PM Patient Production Line Mechanic wrote: Franky Valero is a 24 year old female Patient returning missed call from clinic/ nurse, please call back [phone] (home) Letty Madison [facility] 2025-05-04 16:39:08 Please notify the patient, I sent suppression therapy to her pharmacy for hx of HSV, she will take until she delivers JACIEL Leo 05/04/2025 4:39 PM [facility] 2025-04-20 16:39:23 Routing to provider. Vin Simmons LVN [facility] 16:12:32 Called patient and scheduled appointment with HR on 04/01/25. Does she still need appointment on 03/30/25 with Yazmin? Abhijit HurtadoUniversity Hospitals Conneaut Medical CenterVfyhkc9022-42-07 15:52:58 Please have patient scheduled for next Hr/MFM appt for anxiety, and notify the patient of appt date and time. JACIEL Leo 03/20/2025 3:53 PM [facility] [id number] 00:00:00 [facility]2025-05-21 00:00:00 [facility]2025-05-14 00:00:00 [facility]2025-05-13 15:20:14 Spoke with patient and she wanted appointment after or Sunday with Yazmin, offered patient appointment on Sunday and at 3:00, states that she will call back and schedule appointment. Abhijit HurtadoUniversity Hospitals Conneaut Medical [id number] 18:11:37 Patient verbalized understanding of dc papers. Take meds as prescribed. Follow up with obgyn. Return to ER if s/s worsen. IV removed by this RN. VSS. GCS15. Resp even and unlabored. NAD. Ambulatory w/ steady gait. [place] [id number] 17:34:00 Patient updated on care, pending troponin level [place] [id number] 15:44:33 heart tones 153 on LLQ of abdomen [place] 294435-04-25 14:46:41 Patient coming from home c/o dizziness, anxiety, and chest pain on the left side since the last time she was seen by the doctor and was given reglan and benadryl IV. Pt is approx 23 weeks . GCS15. Resp even and unlabored. Skin pale and dry. Ambulatory w/ steady gait to triage. NAD. PMH anxiety, depression, Losi Simms [id number] 13:36:06 Pt stated her blood sugar was 89 fasting this morning. Stated she vomited after trying to eat crackers and is concerned about her blood sugar numbers. Stated she is also concerned about her BP being 105/60, informed pt the numbers she mentioned are WNL. She stated she went to the ER on 02/02 for her headache and received benadryl, tylenol and reglan and started being restless and having panic attacks. Stated she has also been having itching sensation to her skin and feels like a crawling sensation on her head. Pt thinks she might have had a reaction to the medication received in the hospital. Appt given for today at 2:45. Marissa Mir [facility]2025-04-23 00:00:00 [facility]2025-04-12 00:00:00 [place] [id number] 08:23:11 Patient had appointment on 01/20/25. Abhijit BurgerNicholas [place] [id number] 00:00:00 [facility]2025-03-28 00:00:00 [place] [id number] 00:00:00 [place] [address]991-02-12 00:00:00 [place] 031235-01-17 16:24:39 Letter sent to patients mychart. Called pt and notified. Leeann Newman RN 10/31/24 4:25 PM LA [employer]GER INSULATION Leeann Newman [place] [id number] 16:08:55 Letter of medical clearance. Email to [email or web address] EL GeorgesUniversity Hospitals Conneaut Medical [id number] 00:00:00 [facility]2024-12-15 03:31:24 Pt given printed and verbal discharge [...] with steady gait, in no apparent distress. EL Kessler [facility]wvxkw1819-15-55 01:58:17 Ultrasound at bedside EL Chappell [facility]Xbyyps2594-34-47 00:07:02 Patient thinks she is 5 weeks . 08/12/24 -approx. Date LMP. [facility]2024-12-14 23:25:00 Patient arrives ambulatory to ED c/o lower left abdominal pain that started today. . 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 Last menstrual was around July. Patient is around 5 weeks . EL Krause [id number] 10:01:14 Patient returned call and was given results. Evelyn Yang [facility]Ujwmdq1847-22-56 08:53:46 Attempted to contact patient with results/recommendations. Unable to leave voicemail. Patient has seen normal results on My Chart. Event monitor shows no significant arrhythmias. Written by Emery Andrade MD on 08/04/2024 10:15 PM CDT Seen by patient Franky Valero on 08/04/2024 10:37 PM Evelyn Yang [facility]Itkpre0815-33-26 08:33:55 Images from the original note were not included. Attempted to contact patient to discuss test results, no answer I left a voice message to call back. Emery Andrade MD P Cardiology Nurse Event monitor shows no significant arrhythmias. Denise Mir MARober[place] [id number] 09:28:45 Noted IM-CARDIOVASCULAR DISEASE [facility]2024-10-17 16:40:22 Pt came to office stating she [...] to Dr. Andrade for review. Bobbi Zapata [place] [address]-10-03 10:58:58 Patient notified of results. She verbalized understanding of results/recommendations via teach back. No further questions or concerns at this time. Evelyn Yang [place] [address]-10-03 10:34:39 Franky Valero is a 23 year old female Pt calling back to speak with nurse Please advise T Elis DriverEric [place] [address]-10-03 09:09:07 Images from the original note were not included. Attempted to contact patient with results/recommendations. LVM for patient to return call to [phone]. Emery Andrade MD P Cardiology Nurse Echo with in acceptable limits. Preserved LVEF. No significant valve diease noted Awaiting monitor results. [place] 55426-10-02 16:00:00 [employer] 30-day event monitor applied to patient. Wear and care explained. Patient verbalized understanding. Patient given instruction on how to return monitor in 2 week+ to [employer]. [place] 55426-10-02 15:00:00 Echo with in acceptable limits. Preserved LVEF. No significant valve diease noted Awaiting monitor results. T IM-CARDIOVASCULAR DISEASE STAFFRobert [place]ille [id number] 22:27:03 Pt given printed and verbal discharge [...] gait, in no apparent distress, Marc Albright [facility]Lfralz4113-12-13 19:05:31 Pt arrived ambulatory without assist. Pt c/o heart palpitations that started today. Hx: Anxiety Preeti Stephens [id number] 00:[facility]:00 [facility]2024-06-27 00:00:00 [facility]2024-06-26 00:00:00 [facility]2024-05-16 00:00:00 [facility]2024-05-06 00:00:00 [facility]2024-04-25 00:00:00 [facility]
[2025-06-11 15:13] LABS: Absolute Lymphocytes (CBC) 1.9 K/uL (0.7-4.9); Hematocrit 37.6 % (36.0-45.0); Hemoglobin 12.1 g/dL (12.0-15.0); MCH 21.4 pg (27.0-35.0); MCHC 32.2 g/dL (32.0-36.0); MCV 66.6 fL (80-100); MPV 7.3 fL (7.6-11.3); Nucleated RBC Absolute Count 0.0 (0-0); Nucleated Red Blood Cells % 0.1 % (0-0); RBC Red Blood Cell Count 5.64 M/uL (3.86-4.86); White Blood Count 6.60 thou/uL (4.3-10.9)
[2025-06-11 15:15] LABS: Blood Morphology Comment NOTED (NOT SEEN); Hypochromasia 1+; Microcytosis 1+; White Blood Cell Scan OK (OK)
[2025-06-11] MEDS ORDERED: MORPHINE 2 MG/ML SYR ONE (15:19)
[2025-06-11] MEDS ORDERED: ONDANSETRON 4 MG/2 ML VIAL ONE (15:19)
[2025-06-11] MEDS ORDERED: NA CHLORIDE 0.9% 1,000 ML ONE (15:20)
[2025-06-11 15:33] LABS: Anion Gap 10.4 mEq/L (5.0-15.0); BUN Blood Urea Nitrogen 14.0 mg/dL (7-18); Glucose Level 94.0 mg/dL (74-106); NT PRO-BNP 45.0 pg/mL (<125); Potassium 3.4 mEq/L (3.5-5.1); Troponin High Sensitivity 3.1 pg/mL (<58.9)
--- NOTE | 2025-06-11 16:43 | RAD REPORT ---
EXAMINATION: ONE VIEW CHEST XR CLINICAL INDICATION: Female, 24 years old.,CHEST PAIN TECHNIQUE: Frontal chest projection is submitted. Examination is limited by patient positioning and t echnique. COMPARISON: 07/19/2022 FINDINGS: The lungs are well inflated and clear. No pneumothorax or sizable effusion. The heart is normal in s ize. Mediastinal contours are unremarkable. IMPRESSION: No acute intrathoracic abnormalities.
--- NOTE | 2025-06-11 17:04 | ER ---
Nurse's Notes [facility] Name: Roland Blake Age: 24 yrs Sex: Female : 2000 Arrival Date: 06/11/2025 Time: 14:05 Bed 6 Private MD: Diagnosis: Costochondritis Presentation: 06/11 14:27 Chief complaint: Patient states: SOB, chest heaviness for the past 3-4 days. n/v me1 yesterday. Patient is 2 weeks . Coronavirus screen: Vaccine status: Patient reports receiving the 2nd dose of the covid vaccine. Ebola Screen: No symptoms or risks identified at this time. Initial Sepsis Screen: Does the patient meet any 2 criteria? No. Patient's initial sepsis screen is negative. Does the patient have a suspected source of infection? No. Patient's initial sepsis screen is negative. Risk Assessment: Do you want to hurt yourself or someone else? Patient reports no desire to harm self or others. Onset of symptoms was June 07, 2025. 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 - Infectious Disease History:: Denies. - Social history:: Smoking status: Patient denies any tobacco usage or history of. Screenin:09 [facility] ED Fall Risk Assessment (Adult) History of falling in the last 3 months, iw including since admission No falls in past 3 months (0 pts) Confusion or Disorientation No (0 pts) Intoxicated or Sedated No (0 pts) Impaired Gait No (0 pts) Mobility Assist Device Used No (0 pt) Altered Elimination No (0 pt) Score/Fall Risk Level 0 - 2 = Low Risk Oriented to surroundings, Maintained a safe environment. Abuse screen: Denies threats or abuse. Denies injuries from another. Nutritional screening: No deficits noted. Tuberculosis screening: No symptoms or risk factors identified. Assessment: 17:09 Reassessment: Patient appears in no apparent distress at this time. Patient and/or iw family updated on plan of care and expected duration. Pain level reassessed. Patient is alert, oriented x 3, equal unlabored respirations, skin warm/dry/pink. Vital Signs: 14:27 BP 127 / 79; Pulse 78; Resp 18; Temp 98; Pulse Ox 100% ; Weight 62.6 kg; Height 5 ft. 5 me1 in. ; Pain 5/10; 14:27 Body Mass Index 22.96 (62.60 kg, 165.1 cm) me1 14:27 Pain Scale: Adult ky1 ED Course: 14:09 Patient arrived in ED. cj3 14:09 Ken Gutiérrez FNP-C [facility]5 14:09 Lenny Dotson MD is Attending Physician. dr5 14:30 Triage completed. me1 14:30 Arm band placed on Patient placed in an exam room. me1 14:45 Shena Kessler RN is Primary Nurse. iw 15:01 Initial lab(s) drawn, by me, sent to lab. Inserted saline lock: 22 gauge in right iw antecubital area, using aseptic technique. Blood collected. Flushed with 10 mL NS. 15:20 EKG done, by ED staff, reviewed by Ken ORTEZ. rk3 16:12 XRAY Chest (1 view) In Process Unspecified. EDMS 17:09 No provider procedures requiring assistance completed. IV discontinued, intact, iw bleeding controlled, No redness/swelling at site. Pressure dressing applied. Administered Medications: 15:25 Drug: NS 0.9% IV 1000 ml IV at 1000 ml once; to be given as a bolus over 60 minutes iw Route: IV; Rate: 1000 ml; Site: right antecubital; 16:30 Follow up: IV Status: Completed infusion iw 17:09 Not Given (Patient Refused): morphineor iv 2 mg IVP once over 4 mins iw 17:09 Not Given (Patient Refused): ondansetron 4 mg IVP once; over 2 minutes iw Outcome: 17:03 Discharge ordered by . dr5 17:20 Patient left the ED. iw Signatures: Dispatcher [employer] EDMS Shena Kessler RN RN Selma Flannery RN RN ky1 Ken Gutiérrez FNP-C STEAM PLANT OPERATOR-[facility] [place] Maury Small rk3 Moriah Szymanski cj3
--- NOTE | 2025-06-11 17:04 | EDPHYS ---
Physician Documentation [facility] Name: Roland Blake Age: 24 yrs Sex: Female : 2000 Arrival Date: 06/11/2025 Time: 14:05 Bed 6 Private MD: ED Physician Lenny Dotson HPI: 06/11 15:24 This 24 yrs old Female presents to ER via Ambulatory with complaints of dr5 Shortness Of Breath, Chest Heaviness. 15:24 Onset: The symptoms/episode began/occurred 5 day(s) ago. Patient is a 21-year-old dr5 female with history of anxiety, depression, previous self-harm attempts coming in with 4 to 5 days of intermittent chest pressure that comes and goes throughout each day. Patient reports that each episode is variable in length. Patient denies chest pain or shortness of breath. Patient denies taking any medication to help with pain or pressure. Patient denies abdominal pain, nausea, vomiting, diarrhea, fever. 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 - Infectious Disease History:: Denies. - Social history:: Smoking status: Patient denies any tobacco usage or history of. ROS: 15:24 Constitutional: as per hpi dr5 Exam: 15:24 Constitutional: This is a well developed, well nourished patient who is awake, alert, dr5 and in no acute distress. Head/Face: Normocephalic, atraumatic. Eyes: Pupils equal round and reactive to light, extra-ocular motions intact. Lids and lashes normal. Conjunctiva and sclera are non-icteric and not injected. Cornea within normal limits. Periorbital areas with no swelling, redness, or edema. Neck: Trachea midline, no thyromegaly or masses palpated, and no cervical lymphadenopathy. Supple, full range of motion without nuchal rigidity, or vertebral point tenderness. No Meningismus. Chest/axilla: Normal chest wall appearance and motion. Nontender with no deformity. No lesions are appreciated. Cardiovascular: Regular rate and rhythm with a normal S1 and S2. Normal PMI, no JVD. No pulse deficits. Respiratory: Lungs have equal breath sounds bilaterally, clear to auscultation. No rales, rhonchi or wheezes noted. No increased work of breathing, no retractions or nasal flaring. Abdomen/GI: Soft, non-tender, non-distended Back: No spinal tenderness. No costovertebral tenderness. Full range of motion. Skin: Warm, dry with normal turgor. Normal color with no rashes, no lesions, and no evidence of cellulitis. MS/ Extremity: Pulses equal, no cyanosis. Neurovascular intact. Full, normal range of motion. Neuro: Awake and alert, GCS 15, oriented to person, place, time, and situation. Cranial nerves II-XII grossly intact. Motor strength 5/5 in all extremities. Sensory grossly intact. Cerebellar exam normal. Normal gait. Vital Signs: 14:27 BP 127 / 79; Pulse 78; Resp 18; Temp 98; Pulse Ox 100% ; Weight 62.6 kg; Height 5 ft. 5 me1 in. ; Pain 5/10; 14:27 Body Mass Index 22.96 (62.60 kg, 165.1 cm) me1 14:27 Pain Scale: Adult me1 MDM: 14:09 Medical Screening Exam initiated dr5 17:15 Differential diagnosis: Anemia Anxiety Reaction asthma, Bronchitis Unstable Angina. dr5 Antibiotic administration: Not indicated, the patient does not have an appreciated infiltrate. Data interpreted: environmental monitoring technician: rate is 78 beats/min, rhythm is normal sinus rhythm, regular, with no ectopy, Interpretation: normal rate, normal rhythm, Pulse oximetry: on room air is 100 %. Immunization status:. Data reviewed: vital signs, nurses notes, lab test result(s), cardiac enzymes, troponin i, CBC, white blood cell count, hemoglobin, hematocrit, platelets, electrolytes, sodium, potassium, chloride, serum bicarbonate, BUN, creatinine, serum glucose. Consideration of Admission/Observation Escalation of care including admission/observation considered. Escalation considered patient found to have elevated troponin. I considered the following discharge prescriptions or medication management in the emergency department Medications were administered in the Emergency Department. See [facility] ED medicine offered but patient kindly declined.. Historians other than the Patient: Spouse/Significant Other: Significant Other. Care significantly affected by the following chronic conditions: Anxiety, depression, herpes. Care significantly affected by the following Social Determinants of Health: Poor access to healthcare and/or lack of insurance, Poor access to transportation, Problems related to employment. Counseling: I had a detailed discussion with the patient and/or guardian regarding the historical points, exam findings, and any diagnostic results supporting the discharge/admit diagnosis, the presence of at least one elevated blood pressure reading (>120/80) during this emergency department visit, lab results, radiology results, the need for outpatient follow up, for definitive care, a family practitioner, to return to the emergency department if symptoms worsen or persist or if there are any questions or concerns that arise at home. Response to treatment: the patient's symptoms have resolved after treatment, the patient's condition has returned to base line, the patient is now symptom free. Special discussion: I discussed with the patient/guardian in detail that at this point there is no indication for admission to the hospital. It is understood, however, that if the symptoms persist or worsen the patient needs to return immediately for re-evaluation. 17:18 ED course: Patient's labs were explained to her in detail. I printed out all labs and dr5 chest x-ray given to patient to take to her primary care doctor. Patient denies chest pain, chest pressure, or any other complaints at this time. All question answered. Strict ER precautions given. Patient stable for discharge. Vital signs stable.. 06/11 14:31 Order name: Basic Metabolic Panel; Complete Time: 15: [facility] 06/11 14:31 Order name: CBC with Diff; Complete Time: 15: [facility] 06/11 14:31 Order name: NT PRO-BNP; Complete Time: 15: [facility] 06/11 14:31 Order name: Troponin HS; Complete Time: 15: [facility] 06/11 15:15 Order name: CBC Smear Scan; Complete Time: 15:15 [facility] 06/11 14:31 Order name: XRAY Chest (1 view); Complete Time: 16:53 [facility] 06/11 14:31 Order name: Cardiac monitoring; Complete Time: 15: [facility] 06/11 14:31 Order name: EKG - Nurse/Tech; Complete Time: 15: [facility] 06/11 14:31 Order name: IV Saline Lock; Complete Time: 15: [facility] 06/11 14:31 Order name: Labs collected and sent; Complete Time: 15: [facility] 06/11 14:31 Order name: O2 Per Protocol; Complete Time: 15 dr5 06/11 14:31 Order name: O2 Sat Monitoring; Complete Time: : dr5 EC: Rate is 69 beats/min. Rhythm is regular. QRS [place] is Normal. ND interval is normal at dr5 172 msec. QRS interval is normal at 90 msec. QT interval is normal at 428 msec. Clinical impression: Normal ECG and No evidence of ischemia. Administered Medications: : Drug: NS 0.9% IV 1000 ml IV at 1000 ml once; to be given as a bolus over 60 minutes iw Route: IV; Rate: 1000 ml; Site: right antecubital; 16:30 Follow up: IV Status: Completed infusion iw 17: Not Given (Patient Refused): morphineor iv 2 mg IVP once over 4 mins iw 17:09 Not Given (Patient Refused): ondansetron 4 mg IVP once; over 2 minutes iw Disposition: 06/12 13:38 Co-signature as Attending Physician, Lenny Dotson MD I agree with the assessment and mat plan of care. Disposition Summary: 06/11/25 17:03 Discharge Ordered Notes: Location: Home dr5 Condition: Stable dr5 Diagnosis - Costochondritis dr5 Followup: dr5 - With: Emergency Department - When: As needed - Reason: Worsening of condition Followup: dr5 - With: Private Physician - When: 1 - 2 days - Reason: Recheck today's complaints, Continuance of care, Re-evaluation by your physician Discharge Instructions: - Discharge Summary Sheet dr5 - Costochondritis, [id number] dr5 Forms: - Work release form dr5 - Medication Reconciliation Form dr5 - Patient Portal Instructions dr5 - Leadership Thank You Letter dr5 Prescriptions: - Ibuprofen 800 mg Oral Tablet - take 1 tablet ORAL route every 12 hours As needed take with food; 20 tablet; dr5 Refills: 0, Product Selection Permitted Signatures: Dispatcher [employer] Lenny Parra MD MD cha Williams, Irene, RN RN iw Selma Flannery RN RN me1 Ken Gutiérrez, PSYCHIATRIC NURSING AIDE-C PSYCHIATRIC NURSING AIDE-Cdr5 Corrections: (The following items were deleted from the chart) 06/11 14: 14:31 BASIC METABOLIC PANEL+C.LAB.BRZ ordered. EDMS EDMS 14: 14:31 CBC+H.LAB.BRZ ordered. EDMS EDMS : PROBNP+C.LAB.BRZ ordered. EDMS EDMS : Troponin High Sensitivity+C.LAB.BRZ ordered. EDMS EDMS : Chest Single View+RAD.RAD.BRZ ordered. EDMS EDMS
[2025-06-11 23:19] VITALS: BP 127/79; TEMP 98; O2SAT 100
== END 2025-06-11 17:20 | disposition home or self-care (01) ==
LOC: ER 14:05
DX: M94.0 Chondrocostal junction syndrome [Tietze] (principal)
CPT/HCPCS: 93005; 85025; 80048; 36415; 84484; 83880; 71045; 96360; 99284; J7030; J2270; J2405